=== PATIENT | male | born 1940 | race Caucasian/White ===

== ENCOUNTER → 2019-02-20 08:14 | Outpatient (CLI) | payer OTHER, SELFPAY ==
--- NOTE | 2019-02-20 08:24 | DI.RAD.S_ITS ---
PROCEDURE: XR CHEST 2V INDICATIONS: pre-op clearance, bibasilar crackles at night TECHNIQUE: 2 views of the chest were acquired. COMPARISON: None. FINDINGS: Surgical changes and devices: None. Lungs and pleura: Lungs are clear. No pleural effusions or pneumothorax. Mediastinum: Mediastinal contours are normal. Heart size is normal. Bones and chest wall: No suspicious bony abnormalities. Soft tissues appear unremarkable. IMPRESSION: Normal for age, source of current symptoms is not seen. Dictated by: Shivam Benavides M.D. on 02/20/2019 at 9:36 Approved by: Shiavm Benavides M.D. on 02/20/2019 at 9:36
[2019-02-20 08:31] LABS: RBC Urine None Seen (0-5/HPF)
[2019-02-20 08:51] LABS: Appearance Urine UA CLEAR; Bilirubin Urine UA NEGATIVE (NEGATIVE); Color Urine UA YELLOW; Glucose Urine UA NEGATIVE (Negative); Ketones Urine UA NEGATIVE (NEGATIVE); Leukocyte Esterase Urine UA NEGATIVE (NEGATIVE); Nitrite Urine UA NEGATIVE (Negative); Occult Blood Urine UA NEGATIVE (Negative); Protein Urine UA NEGATIVE (Negative); Specific Gravity Urine UA 1.025 (1.000-1.035)
[2019-02-20 09:00] LABS: Add Manual Diff / Slide Review YES; Hematocrit 32.5 % (41-53); Hemoglobin 11.3 g/dL (13.5-17.5); Mean Corpuscular HGB Conc 34.7 % (30-36); Mean Corpuscular Hemoglobin 42.6 PG (26-34); Mean Corpuscular Volume 122.7 fL (80-100); Platelet Count 527 X10^3/uL (150-400); Red Blood Cell Count 2.64 X10^6/uL (4.5-5.9); Red Cell Distribution Width 16.5 % (11.6-14.8); White Blood Cell Count 3.8 X10^3/uL (4.5-11.0)
[2019-02-20 09:01] LABS: Hemoglobin A1C% w Est Avg Glu 5.6 % (4.0-6.0)
[2019-02-20 09:13] LABS: B Type Natriuretic Peptide < 100 (<100)
[2019-02-20 09:36] LABS: Macrocytosis 2+; Neutrophils Absolute Manual 1368 /uL (3000-5900); Total Cells Counted 100
[2019-02-20 09:53] LABS: Bacteria Urine Few (2-10); Culture Indicated Urine Cult Not Indicated; Mucus Urine 2+ (Negative); WBC Urine 1-5/HPF (0-5/HPF)
[2019-02-20 09:55] LABS: Alanine Aminotransferase 37 IU/L (21-72); Albumin 4.4 g/dL (3.5-5.0); Albumin Globulin Ratio 1.5 (1.0-2.8); Alkaline Phosphatase 34 U/L (38-126); Aspartate Aminotransferase 32 IU/L (17-59); BUN Creatinine Ratio 22.5 (6-22); Bilirubin Total 0.7 mg/dL (0.2-1.3); Blood Urea Nitrogen 18 mg/dL (9-20); Calcium 9.3 mg/dL (8.4-10.2); Carbon Dioxide 31 mmol/L (22-32); Chloride 102 mmol/L (98-107); Cholesterol 142 mg/dL (140-199); Estimated Glomerular Filt Rate > 60.0 mL/min (>60); Globulin 2.9 g/dL (1.7-4.1); Glucose 127 mg/dL (80-110); HDL Cholesterol 48 mg/dL (40-60); HEMOLYSIS < 15 (0-50); LDL Cholesterol Calculated 81 mg/dL (<100); Sodium 140 mmol/L (137-145); Total Protein 7.3 g/dL (6.3-8.2); Triglycerides 66 mg/dL (35-150)
[2019-02-20 10:00] LABS: Potassium 5.5 mmol/L (3.4-5.1)
[2019-02-20 12:58] LABS: HEMOLYSIS < 15 (0-50); Potassium 4.1 mmol/L (3.4-5.1)
[2019-02-20 13:31] LABS: HEMOLYSIS < 15 (0-50); Iron 184 ug/dL (49-181)
[2019-02-20 13:42] LABS: Percent Iron Saturation 69 % (20-50); Total Iron Binding Capacity 266 ug/dL (261-462); Transferrin 196 mg/dL (206-381)
[2019-02-20 14:07] LABS: Folate 12.4 ng/mL (2.76-20.0); Vitamin B12 409 pg/mL (239-931)
== END ==
PROVIDERS: Visit Provider Nurse Practitioner Family
DX: Z01.818 Encounter for other preprocedural examination (principal); R06.02 Shortness of breath; R09.89 Other specified symptoms and signs involving the circulatory and respiratory systems; E87.5 Hyperkalemia; D53.9 Nutritional anemia, unspecified
CPT/HCPCS: 36415; 71046; 80053; 80061; 81001; 82607; 82728; 82746; 83036; 83540; 83550; 83880; 84132; 85025

== ENCOUNTER → 2019-04-24 12:07 | Outpatient (CLI) | payer OTHER, SELFPAY ==
[2019-04-26 23:07] LABS: Fecal Immunochemical Test NOT DETECTED (NOT DETECTED)
== END ==
PROVIDERS: PCP Nurse Practitioner Family; Visit Provider Nurse Practitioner Family
DX: D64.9 Anemia, unspecified (principal)
CPT/HCPCS: 82274

== ENCOUNTER → 2019-05-28 07:54 | Outpatient (CLI) | payer OTHER, SELFPAY ==
--- NOTE | 2019-05-28 07:56 | DI.US.S_ITS ---
PROCEDURE: US ABDOMEN LIMITED INDICATIONS: MACROCYTIC ANEMIA TECHNIQUE: Real-time focused scanning was performed of the abdomen, with image documentation. COMPARISON: None. FINDINGS: Liver is diffusely increased in echogenicity. No focal hepatic abnormalities identified. Normal hepatic size. Multiple gallstones present. No gallbladder wall thickening or pericholecystic fluid. Negative sonographic Suh sign. No biliary dilatation. Normal pancreas and spleen. IMPRESSION: 1. Cholelithiasis without acute cholecystitis. 2. Increased hepatic echogenicity noted possibly related to hepatic steatosis but other sources of hepatocellular disease cannot be excluded. Recommend clinical correlation. Dictated by: Rohith MALDONADO Interpreted: Tonya Lomas MD on 05/28/2019 at 9:43 Approved by: Tonya Lomas M.D. on 05/28/2019 at 14:01
== END ==
PROVIDERS: PCP Nurse Practitioner Family; Visit Provider Internal Medicine Hematology & Oncology
DX: D53.9 Nutritional anemia, unspecified (principal); K80.20 Calculus of gallbladder without cholecystitis without obstruction
CPT/HCPCS: 76705

== ENCOUNTER 2020-01-31 09:51 | Emergency (ER) | payer OTHER, SELFPAY ==
[2020-01-31 10:05] VITALS: BP 145/73; PULSE 80; RESP 18; TEMP 36.6; O2SAT 97; BMI 30.9
--- NOTE | 2020-01-31 10:21 | DI.RAD.S_ITS ---
PROCEDURE: XR CHEST 2V INDICATIONS: cough TECHNIQUE: 2 views of the chest were acquired. COMPARISON: [facility], CR, XR CHEST 2V, 02/20/2019, 8:28. FINDINGS: Surgical changes and devices: None. Lungs and pleura: Lungs are clear. No pleural effusions or pneumothorax. Mediastinum: Mediastinal contours are normal. Heart size is enlarged. Bones and chest wall: No suspicious bony abnormalities. Soft tissues appear unremarkable. IMPRESSION: No acute cardiopulmonary pathology. Dictated by: William Mensah M.D. on 01/31/2020 at 10:46 Approved by: William Mensah M.D. on 01/31/2020 at 10:46
--- NOTE | 2020-01-31 10:58 | ED.URI ---
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 He was in [place] over the weekend his friend had mild upper respiratory symptoms as well. He has got an increased cough no fevers but does find that he has orthopnea and mild exertional dyspnea. He has a history of childhood asthma but is not typically on inhalers or steroids. Mild productive cough, no chest pain no resting dyspnea, no fevers, no rashes. Related Data Home Medications Medication Instructions Recorded Confirmed Glucosamine-Chondroitin 500 mg PO DAILY 02/19/19 11/18/19 multivitamin 1 cap PO .QOD cap 02/19/19 11/18/19 omega-3 fatty acids 1,000 mg 1,000 mg PO DAILY 02/19/19 11/18/19 capsule acetaminophen [Tylenol] 325 mg DAILY PRN 04/29/19 11/18/19 Previous Rx's Medication Instructions Recorded amoxicillin-pot clavulanate 1 tab PO BID #14 tab 01/31/20 [Augmentin] methylprednisolone [Medrol ([place])] See Rx Instructions .ROUTE 01/31/20 .COMPLEX #21 each Allergies Allergy/AdvReac Type Severity Reaction Status Date / Time No Known Drug Allergies Allergy Unverified 03/13/19 14:55 Review of Systems Review of Systems Narrative: Sinus congestion and bilateral maxillary sinus tenderness with chronic nasal discharge. All systems reviewed and are unremarkable except as noted in HPI and below Patient History Family History Father History of heart disease Mother Congestive heart failure Brother Cancer Sister Congestive heart failure Social History Smoking Status: Never smoker second hand exposure: No alcohol intake: current (wine at night) substance use type: does not use Smoking Status: Never smoker alcohol intake frequency: 0-2 drinks per day Substance Use Type: does not use Exam Narrative Exam Narrative: General: Healthy appearing, in no acute distress. Able to give a complete and coherent history. Well-nourished well-developed HEENT: Moist mucous membranes, normal sclera with reactive pupils, Neck: No JVD, supple Respiratory: Lungs scattered diffuse wheezing and rhonchi in the left axilla. Full and symmetrical air movement Cardiac: Regular rate and rhythm no murmurs no bruits Abdomen: Soft nontender good bowel tones, no flank pain Skin: Warm and dry, no rashes Neurologic: Grossly neurologically intact with no obvious asymmetries or abnormalities Extremities: No trauma, well perfused Psych: Cooperative, appropriate insight and affect Initial Vital Signs Initial Vital Signs: Vital Signs Temperature 97.9 F 01/31/20 10:05 Pulse Rate 80 01/31/20 10:05 Respiratory Rate 18 01/31/20 10:05 Blood Pressure 145/73 H 01/31/20 10:05 Pulse Oximetry 97 01/31/20 10:05 Course Orders Ordered: ED Orders 01/31/20 10:21 Chest [XR chest 2V] Stat 01/31/20 11:11 EKG-12 Lead Stat 01/31/20 11:30 Complete Blood Count AUTO DIFF Stat Comprehensive Metabolic Panel Stat NT-proBNP (BNP-Adult 18+) Stat Troponin I Stat Discontinued Medications Albuterol/Ipratropium (Duoneb) 3 ml INH NOW ONE Stop: 01/31/20 11:26 Last Admin: 01/31/20 11:45 Dose: 3 ml Documented by: WESLY Ipratropium [place] (Atrovent Neb) 0.5 mg INH NOW ONE Stop: 01/31/20 11:12 Methylprednisolone (Solu-Medrol 125 Mg Vial) 125 mg IV NOW ONE Stop: 01/31/20 11:12 Vital Signs Vital signs: Vital Signs - 8 hr 01/31/20 10:05 01/31/20 11:47 Temperature 97.9 F Pulse Rate 80 60 Respiratory Rate 18 14 Blood Pressure 145/73 H Pulse Oximetry 97 MDM - URI/Sore Throat Medical Records Attestation: I reviewed the patient's medical records. Lab Data Attestation: I reviewed the patient's lab results. Result diagrams: 01/31/20 11:30 01/31/20 11:30 Labs: Lab Results 01/31/20 01/31/20 Range/Units 11:30 11:30 WBC 5.0 (4.5-11.0) X10^3/uL RBC 2.10 L (4.5-5.9) X10^6/uL Hgb 9.1 L (13.5-17.5) g/dL Hct 26.7 L (41-53) % MCV 127.3 H (80-100) fL MCH 43.2 H (26-34) PG MCHC 34.0 (30-36) % RDW 19.7 H (11.6-14.8) % Plt Count 215 (150-400) X10^3/uL Neut % (Auto) Not Reportable Lymph % (Auto) Not Reportable [place] % (Auto) Not Reportable Eos % (Auto) Not Reportable Baso % (Auto) Not Reportable Lymph # (Auto) Not Reportable [place] # (Auto) Not Reportable Baso # (Auto) Not Reportable Total Counted 100 Seg Neutrophils % 25.0 L (38-70) % Band Neutrophils % 24.0 H (3-7) % Lymphocytes % (Manual) 14.0 L (25-45) % Atypical Lymphs % 6.0 H ( - 0) % Monocytes % (Manual) 27.0 H (2-11) % Metamyelocytes % 1.0 H (-0) % Myelocytes % 3.0 H (-0) % Neutrophils # (Manual) 2450 L (4906-4113) /uL Plt Morphology Comment RBC Morphology See below Polychromasia 1+ H Poikilocytosis 2+ H Anisocytosis 2+ H Macrocytosis 2+ H Schistocytes 1+ H Sodium 139 (137-145) mmol/L Potassium 4.5 (3.4-5.1) mmol/L Chloride 104 (98-107) mmol/L Carbon Dioxide 29 (22-32) mmol/L BUN 14 (9-20) mg/dL Creatinine 0.70 (0.66-1.25) mg/dL Estimated GFR > 60.0 (>60) mL/min BUN/Creatinine Ratio 20.0 (6-22) Glucose 128 H (80-110) mg/dL Calcium 8.9 (8.4-10.2) mg/dL Total Bilirubin 0.8 (0.2-1.3) mg/dL AST 40 (17-59) IU/L ALT 40 (<50) IU/L Alkaline Phosphatase 41 (38-126) U/L Troponin I < 0.012 (0.01-0.034) ng/mL NT-Pro-B Natriuret Pep 387 (<450) pg/mL Total Protein 7.4 (6.3-8.2) g/dL Albumin 4.3 (3.5-5.0) g/dL Globulin 3.1 (1.7-4.1) g/dL Albumin/Globulin Ratio 1.4 (1.0-2.8) Imaging Data Chest x-ray: Radiologist's Impression: IMPRESSION: No acute cardiopulmonary pathology. Dictated by: William Mensah M.D. on 01/31/2020 at 10:46 ECG Data Attestation: I personally reviewed and interpreted this ECG as follows: Interpretation: Normal sinus rhythm at a rate of 71 Right bundle branch block without any ischemic changes MDM Narrative Medical decision making narrative: 79-year-old gentleman with a early myelodysplastic disorder with a clinical developing left lower lobe pneumonia without evidence of heart failure or acute coronary syndrome. Will suggest Augmentin to treat the developing pneumonia and will also suggested brief course of Solu-Medrol to help with the wheezing. In the emergency department he did receive a DuoNeb treatment with little alleviation of his wheezing I do not think that home meds will be required. Curb 65 is 1 point purely on age alone. He is safe for home discharge. He will be provided with copies of this note to review blood work as well as EKG copies. Discharge Plan Departure Patient Disposition: Home Clinical Impression: Pneumonia Qualifiers: Pneumonia type: due to unspecified organism Laterality: left Lung location: lower lobe of lung Qualified Code(s): J18.9 - Pneumonia, unspecified organism Instructions: DI for Pneumonia -- Adult Activity Restrictions/Additional Instructions: Thank you for coming in today On clinical exam you do have a developing left lower lobe pneumonia. It is not yet showing up on your chest x-ray and your lab workup is equally reassuring. I am going to suggest Augmentin and if this happens to help with the sinus congestion/fullness that is wonderful too. There is no evidence of acute coronary syndrome are heart failure to complicate your current situation. Given your current cough and 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 It was a pleasure to meet you. I wish you the best Prescriptions: New amoxicillin-pot clavulanate [Augmentin] 875-125 mg tablet 1 tab PO BID Qty: 14 RF: 0 methylprednisolone [Medrol ([place])] 4 mg tablets,dose pack See Rx Instructions .ROUTE .COMPLEX Qty: 21 RF: 0 No Action omega-3 fatty acids [Fish Oil Concentrate] 1,000 mg capsule 1,000 mg PO DAILY RF: 0 multivitamin capsule 1 cap PO .QOD RF: 0 Glucosamine-Chondroitin 500 mg PO DAILY RF: 0 acetaminophen [Tylenol] 325 mg Tablet 325 mg DAILY PRN (Reason: Pain (Scale Score 1-3)) RF: 0 Referrals: Aki Wright ARNP [Primary Care Provider] -
[2020-01-31 11:40] LABS: Hematocrit 26.7 % (41-53); Hemoglobin 9.1 g/dL (13.5-17.5); Mean Corpuscular Hemoglobin 43.2 PG (26-34); Mean Corpuscular Volume 127.3 fL (80-100); Platelet Count 215 X10^3/uL (150-400); Red Cell Distribution Width 19.7 % (11.6-14.8)
[2020-01-31 11:43] LABS: Add Manual Diff / Slide Review YES
[2020-01-31] MEDS: ALBUTEROL/IPRATROPIUM 3 ML AMPUL INH (11:45)
[2020-01-31 11:46] LABS: Alanine Aminotransferase 40 IU/L (<50); Albumin 4.3 g/dL (3.5-5.0); Albumin Globulin Ratio 1.4 (1.0-2.8); Alkaline Phosphatase 41 U/L (38-126); Aspartate Aminotransferase 40 IU/L (17-59); Bilirubin Total 0.8 mg/dL (0.2-1.3); Blood Urea Nitrogen 14 mg/dL (9-20); Calcium 8.9 mg/dL (8.4-10.2); Carbon Dioxide 29 mmol/L (22-32); Chloride 104 mmol/L (98-107); Estimated Glomerular Filt Rate > 60.0 mL/min (>60); Globulin 3.1 g/dL (1.7-4.1); Glucose 128 mg/dL (80-110); HEMOLYSIS < 15 (0-50); Potassium 4.5 mmol/L (3.4-5.1); Sodium 139 mmol/L (137-145); Total Protein 7.4 g/dL (6.3-8.2)
[2020-01-31 11:47] VITALS: PULSE 60; RESP 14
[2020-01-31 11:58] LABS: Troponin I < 0.012 ng/mL (0.01-0.034)
[2020-01-31 12:04] LABS: NT-proBNP (BNP-Adult 18+) 387 pg/mL (<450)
[2020-01-31 12:11] LABS: Neutrophils Absolute Manual 2450 /uL (3000-5900); Total Cells Counted 100
[2020-01-31 12:12] LABS: Anisocytosis 2+; Macrocytosis 2+; Poikilocytosis 2+
[2020-01-31 12:13] LABS: Polychromasia 1+; Schistocytes 1+
[2020-01-31 13:26] VITALS: BP 153/70; PULSE 75; RESP 15; O2SAT 98
== END 2020-01-31 13:27 | disposition home or self-care (01) ==
PROVIDERS: Emergency Provider Emergency Medicine; PCP Nurse Practitioner Family
DX: J18.9 Pneumonia, unspecified organism (principal); D47.3 Essential (hemorrhagic) thrombocythemia; R07.9 Chest pain, unspecified
CPT/HCPCS: 36415; 71046; 80053; 83880; 84484; 85025; 93005; 93010; 94640; 99284

== ENCOUNTER → 2020-02-18 15:11 | Outpatient (CLI) | payer OTHER, SELFPAY ==
[2020-02-18 17:13] LABS: Influenza A - CEPHEID Flu A NEGATIVE (NEGATIVE); Influenza B - CEPHEID Flu B NEGATIVE (NEGATIVE)
[2020-02-26 11:58] LABS: COVID19 Sendout Not Detected (Not Detected)
== END ==
PROVIDERS: PCP Nurse Practitioner Family; Visit Provider Physician Assistant
DX: R05 Cough (principal); R06.02 Shortness of breath
CPT/HCPCS: 87502; 87635

== ENCOUNTER → 2020-06-16 08:42 | Outpatient (CLI) | payer OTHER, SELFPAY ==
[2020-06-16 09:12] VITALS: BP 143/76; PULSE 79; RESP 16; TEMP 36.3; O2SAT 96
--- NOTE | 2020-06-16 09:23 | ONC.PN ---
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 He was initially seen last year for workup of macrocytic anemia. Bone marrow on June 03, 2019 showed a hypercellular marrow with trial lineage hematopoiesis positive for MDS/MPN related clone with mild increase in reticulin fibrosis (1/4), negative for storage iron her ring sideroblasts. Chromosome analysis showed 47 xy, +8(1)/46 xy. Flow cytometry showed an increased number of immunophenotypically abnormal monocytes, increased number of NK cells without definitive immunophenotypic abnormality, decreased expression of CD 45 with no evidence of atypical or increased blasts, no evidence of atypical B-cell or T-cell populations. Fish analysis showed trisomy 8. His anemia has gradually worsened. He was seen by Dr. Phelps last month and counseled about initiation of Aranesp. He has not had any doses yet. It was initially slow due to insurance clearance but that is now been accomplished. He comes today for a follow-up visit. He continues to have problems with dyspnea on exertion and fatigue. This has been gradually getting worse as his anemia has progressed. He is not having any new pain, bleeding, localized weakness, fever, chills, nausea, vomiting, cough or anorexia. All other systems are negative. New Past medical history 1. He denies high blood pressure, diabetes, rheumatic fever, tuberculosis, heart attacks, strokes, stomach ulcers, or any kind of cancer 2. He was diagnosed with pneumonia in January of 2020 and treated as an outpatient. 3. There is no family history of blood disorder 4. He lives with his significant other. He is an occasional drinker and a never smoker. 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 5. The previous surgeries include bilateral total hip replacements, multiple disc operations, bilateral cataract extractions and knee surgery 6. Current medications include as needed Tylenol, glucosamine, multiple vitamin and fish oil 7. He has no known drug allergies - Patient Self-Reported Symptoms SR Constitution: Fatigue/Malaise, Night Sweats SR respiratory issues: Shortness of breath SR Cardiovascular issues: Shortness of breath with activity or lying flat SR Musculoskeletal issues: Muscle weakness SR Neuro issues: Lightheaded/dizzy Home Medications and Allergies Home Medications Medication Instructions Recorded Confirmed Type Glucosamine-Chondroitin 500 mg PO DAILY 02/19/19 06/16/20 History multivitamin 1 cap PO .QOD cap 02/19/19 06/16/20 History omega-3 fatty acids 1,000 mg 1,000 mg PO DAILY 02/19/19 06/16/20 History capsule acetaminophen [Tylenol] 325 mg DAILY PRN 04/29/19 06/16/20 History Allergies Allergy/AdvReac Type Severity Reaction Status Date / Time No Known Drug Allergies Allergy Verified 02/18/20 14:57 Exam Vital signs: Vital Signs Temp Pulse Resp BP Pulse Ox 06/16/20 09:12 97.4 F L 79 16 143/76 H 96 Intake and Output 06/15/20 06/16/20 06/16/20 23:59 07:59 15:59 Other: Weight 108.9 kg Patient Weight 06/16/20 23:59 Weight 108.9 kg Narrative: He was in no acute distress. He was awake, alert and oriented x3. He was fully ambulatory. Assessment and Plan (1) Essential thrombocytosis Status: Acute Dr. Arechiga has had a progressive anemia. He symptomatic and initiation of treatment would be warranted. We discussed Aranesp injections and their mechanism of action. We reviewed the fact that they do not cure an underlying condition but are intended to increase red cell production. If they proved to be effective, we would continue them indefinitely. Possible side effects can include venous thromboembolic disease. This was seen more frequently in the past when higher hemoglobin and hematocrits were targeted with the agent. Most people tolerate it well. The main problem is that it does not work and everybody. Will initiate his Aranesp injections today. The starting dose will be 200 mcg every 2 weeks. I explained that we would adjust the dosing frequency to try to treat him with the longus possible interval assuming that the medication proves effective and well tolerated. I explained it can take 2-3 months to work. Plan to see him back in about 8 weeks to assess his response. He also asked about transfusion support. I his understanding is that the targets would be a hemoglobin of 8 and hematocrit of 25. I told him that is reasonable. However, we could also consider his symptoms. He will be 80 years old tomorrow and has dyspnea on exertion. Accordingly, if he has any decline in his red count, I think transfusion support would be appropriate and he understands this. We will check his count every 2 weeks as were giving him the Aranesp injections and will be be prepared to support him as needed. I will plan to see him back in about 8 weeks for follow-up in conjunction with an Aranesp injection.
[2020-06-16] MEDS: DARBEPOETIN 200 MCG/0.4 ML SYRINGE SUBCUT (09:41)
--- NOTE | 2020-06-16 09:47 | PC.NURSE ---
pt is traveling to [place] and desires to have next injection where he will be at. This RN spoke to [facility]. pt will let us know what medical institution he wants his injection at, call us, let us know then we will call the institution to see if they will accept outside prescription.
== END ==
PROVIDERS: PCP Nurse Practitioner Family; Referring Provider Nurse Practitioner Family; Visit Provider Internal Medicine
DX: D46.9 Myelodysplastic syndrome, unspecified (principal); D47.3 Essential (hemorrhagic) thrombocythemia; R06.09 Other forms of dyspnea; R53.83 Other fatigue
CPT/HCPCS: 96372; 99214; J0881

== ENCOUNTER → 2020-06-30 10:22 | Outpatient (CLI) | payer OTHER, SELFPAY ==
[2020-06-30 10:38] VITALS: BP 135/71; PULSE 74; RESP 16; TEMP 36.4; O2SAT 97
[2020-06-30] MEDS: DARBEPOETIN 200 MCG/0.4 ML SYRINGE SUBCUT (11:43)
[2020-06-30 12:13] VITALS: BP 122/55; PULSE 75; RESP 16; TEMP 36.6
[2020-06-30 12:27] VITALS: BP 128/69; PULSE 73; RESP 16; TEMP 37.3
[2020-06-30 14:28] VITALS: BP 127/65; PULSE 68; RESP 16; TEMP 36.9
== END ==
PROVIDERS: PCP Nurse Practitioner Family; Referring Provider Nurse Practitioner Family; Visit Provider Internal Medicine
DX: D47.3 Essential (hemorrhagic) thrombocythemia (principal); D53.9 Nutritional anemia, unspecified; R53.83 Other fatigue
CPT/HCPCS: 36415; 36430; 85025; 86850; 86900; 86901; 96372; P9016; J0881

== ENCOUNTER → 2020-07-14 15:09 | Outpatient (CLI) | payer OTHER, SELFPAY ==
[2020-07-14 11:24] VITALS: BP 142/84; PULSE 77; RESP 18; TEMP 37.2; O2SAT 98
== END ==
PROVIDERS: PCP Nurse Practitioner Family; Referring Provider Nurse Practitioner Family; Visit Provider Internal Medicine
DX: D47.3 Essential (hemorrhagic) thrombocythemia (principal)

== ENCOUNTER → 2020-07-28 09:44 | Outpatient (CLI) | payer OTHER, SELFPAY ==
[2020-07-28 09:54] VITALS: BP 157/89; PULSE 87; RESP 18; TEMP 36.9; O2SAT 97
[2020-07-28] MEDS: DARBEPOETIN 200 MCG/0.4 ML SYRINGE SUBCUT (10:17)
== END ==
PROVIDERS: PCP Nurse Practitioner Family; Referring Provider Nurse Practitioner Family; Visit Provider Internal Medicine
DX: D47.3 Essential (hemorrhagic) thrombocythemia (principal); R06.02 Shortness of breath; D53.9 Nutritional anemia, unspecified; R53.83 Other fatigue
CPT/HCPCS: 82728; 83540; 83550; 84466; 85025; 96372; J0881

== ENCOUNTER → 2020-08-11 09:17 | Outpatient (CLI) | payer OTHER, SELFPAY ==
[2020-08-11 09:40] LABS: Mean Corpuscular HGB Conc 33.4 % (30-36); Mean Corpuscular Hemoglobin 36.6 PG (26-34); Mean Corpuscular Volume 109.5 fL (80-100); Platelet Count 122 X10^3/uL (150-400); Red Blood Cell Count 1.84 X10^6/uL (4.5-5.9); Red Cell Distribution Width 30.6 % (11.6-14.8); White Blood Cell Count 5.2 X10^3/uL (4.5-11.0)
[2020-08-11 09:41] LABS: Hematocrit 20.1 % (41-53); Hemoglobin 6.7 g/dL (13.5-17.5)
[2020-08-11 09:42] LABS: Add Manual Diff / Slide Review YES
[2020-08-11 10:03] LABS: Anisocytosis 2+; Neutrophils Absolute Manual 2132 /uL (3000-5900); Poikilocytosis 1+; Total Cells Counted 100
[2020-08-11] MEDS: DARBEPOETIN 100 MCG/0.5 ML SYRINGE 500 MCG SUBCUT (11:31)
== END ==
PROVIDERS: PCP Nurse Practitioner Family; Referring Provider Internal Medicine; Visit Provider Internal Medicine
DX: D46.9 Myelodysplastic syndrome, unspecified (principal); D47.3 Essential (hemorrhagic) thrombocythemia
CPT/HCPCS: 36415; 36430; 85025; 86850; 86900; 86901; 96372; 99214; P9016; J0881

== ENCOUNTER → 2020-08-25 09:14 | Outpatient (CLI) | payer OTHER, SELFPAY ==
[2020-08-25 09:33] LABS: Add Manual Diff / Slide Review NO; Basophils Absolute Auto 100 /uL (0-100); Eosinophils Absolute Auto 0 /uL (0-450); Eosinophils Percent Auto 0.2 % (2-4); Hematocrit 26.3 % (41-53); Hemoglobin 8.9 g/dL (13.5-17.5); Lymphocytes Absolute Auto 1400 /uL (1100-4500); Lymphocytes Percent Auto 27.8 % (25-40); Mean Corpuscular Hemoglobin 33.7 PG (26-34); Mean Corpuscular Volume 99.1 fL (80-100); Monocytes Absolute Auto 1500 /uL (0-900); Monocytes Percent Auto 28.5 % (3-14); Neutrophils Absolute Auto 2200 /uL (1500-7000); Neutrophils Percent Auto 42.5 % (50-75); Platelet Count 123 X10^3/uL (150-400); Red Blood Cell Count 2.65 X10^6/uL (4.5-5.9); Red Cell Distribution Width 24.7 % (11.6-14.8); White Blood Cell Count 5.2 X10^3/uL (4.5-11.0)
[2020-08-25 09:48] LABS: Anisocytosis 2+
[2020-08-25 09:50] VITALS: BP 153/76; PULSE 84; RESP 20; TEMP 36.6; O2SAT 97
[2020-08-25] MEDS: DARBEPOETIN 300 MCG/0.6 ML SYRINGE 500 MCG SUBCUT (10:07)
--- NOTE | 2020-08-25 10:07 | PC.NURSE ---
BLOOD IN STOOL TODAY REPORTED BY PATIENT, ONE TIME OCCURENCE, NO HX OF HEMORRHOIDS, NO BEETS CONSUMED YESTERDAY, NO OTHER SIGNS OF BLEEDING. REPORT TO DR CASSIDY AND PATIENT INFORMED BY THIS NURSE THAT HE SHOULD DISCUSS IT WITH PCP AND DR CASSIDY WOULD RECOMMEND A FLEX SIGMOIDOSCOPY IF NO COLONOSCOPY IN LAST 3 MONTHS.
== END ==
PROVIDERS: PCP Nurse Practitioner Family; Referring Provider Internal Medicine; Visit Provider Internal Medicine
DX: D46.9 Myelodysplastic syndrome, unspecified (principal); D47.3 Essential (hemorrhagic) thrombocythemia
CPT/HCPCS: 36415; 85025; 96372; J0881

== ENCOUNTER → 2020-09-07 11:49 | Outpatient (CLI) | payer MEDICARE, OTHER, SELFPAY ==
[2020-09-07 12:08] LABS: Add Manual Diff / Slide Review YES; Hematocrit 26.9 % (41-53); Hemoglobin 9.3 g/dL (13.5-17.5); Mean Corpuscular HGB Conc 34.4 % (30-36); Mean Corpuscular Hemoglobin 32.4 PG (26-34); Platelet Count 77 X10^3/uL (150-400); Red Blood Cell Count 2.86 X10^6/uL (4.5-5.9); Red Cell Distribution Width 19.6 % (11.6-14.8); White Blood Cell Count 4.3 X10^3/uL (4.5-11.0)
[2020-09-07 12:26] LABS: Neutrophils Absolute Manual 1548 /uL (3000-5900); Total Cells Counted 100
[2020-09-07 12:27] LABS: Anisocytosis 2+
== END ==
PROVIDERS: PCP Nurse Practitioner Family; Referring Provider Internal Medicine; Visit Provider Internal Medicine
DX: D47.3 Essential (hemorrhagic) thrombocythemia (principal)
CPT/HCPCS: 36415; 85025

== ENCOUNTER → 2020-09-08 09:45 | Outpatient (CLI) | payer MEDICARE, OTHER, SELFPAY ==
[2020-09-08] MEDS: DARBEPOETIN 300 MCG/0.6 ML SYRINGE 500 MCG SUBCUT (09:50)
[2020-09-08] MEDS: INFLUENZA HD VACCINE 0.7 ML SYRINGE IM (10:21)
== END ==
PROVIDERS: PCP Nurse Practitioner Family; Referring Provider Nurse Practitioner Family; Visit Provider Internal Medicine
DX: D46.9 Myelodysplastic syndrome, unspecified (principal); Z23 Encounter for immunization
CPT/HCPCS: 90471; 90472; 90662; 96372; 99214; J0881

== ENCOUNTER → 2020-09-22 13:01 | Outpatient (CLI) | payer MEDICARE, OTHER, SELFPAY ==
[2020-09-22] MEDS: DARBEPOETIN 300 MCG/0.6 ML SYRINGE 500 MCG SUBCUT (14:09)
[2020-09-22 14:52] VITALS: BP 129/61; PULSE 81; RESP 16; TEMP 37
[2020-09-22 15:07] VITALS: BP 130/59; PULSE 82; RESP 16; TEMP 37.3
[2020-09-22 16:33] VITALS: BP 124/71; PULSE 85; RESP 16; TEMP 36.9
== END ==
PROVIDERS: PCP Nurse Practitioner Family; Referring Provider Nurse Practitioner Family; Visit Provider Internal Medicine
DX: D46.9 Myelodysplastic syndrome, unspecified (principal)
CPT/HCPCS: 36415; 36430; 85025; 86850; 86900; 86901; 96372; 99213; P9016; J0881

== ENCOUNTER → 2020-09-30 13:04 | Outpatient (CLI) | payer MEDICARE, OTHER, SELFPAY ==
[2020-09-30] MEDS: DARBEPOETIN 500 MCG/ML SUBCUT (13:28)
== END ==
PROVIDERS: PCP Nurse Practitioner Family; Referring Provider Internal Medicine Hematology & Oncology; Visit Provider Internal Medicine Hematology & Oncology
DX: D46.9 Myelodysplastic syndrome, unspecified (principal)
CPT/HCPCS: 36430; 96372; P9016; J0881

== ENCOUNTER → 2020-10-07 08:54 | Outpatient (CLI) | payer MEDICARE, OTHER, SELFPAY ==
[2020-10-07] MEDS: DARBEPOETIN 500 MCG/ML SUBCUT (09:54)
== END ==
PROVIDERS: PCP Nurse Practitioner Family; Referring Provider Internal Medicine; Visit Provider Internal Medicine
DX: D46.9 Myelodysplastic syndrome, unspecified (principal)
CPT/HCPCS: 96372; 99213; J0881

== ENCOUNTER → 2020-10-14 10:32 | Outpatient (CLI) | payer MEDICARE, OTHER, SELFPAY ==
[2020-10-14 10:59] VITALS: BP 126/73; PULSE 75; RESP 18; TEMP 36.9; O2SAT 98
[2020-10-14] MEDS: DARBEPOETIN 500 MCG/ML SUBCUT (12:12)
== END ==
PROVIDERS: PCP Nurse Practitioner Family; Referring Provider Nurse Practitioner Family; Visit Provider Internal Medicine
DX: D46.9 Myelodysplastic syndrome, unspecified (principal)
CPT/HCPCS: 36415; 36430; 85025; 86850; 86900; 86901; 96372; P9016; J0881

== ENCOUNTER → 2020-10-21 10:33 | Outpatient (CLI) | payer MEDICARE, OTHER, SELFPAY ==
[2020-10-21 11:03] VITALS: BP 151/73; PULSE 76; RESP 16; TEMP 36.5; O2SAT 98
[2020-10-21] MEDS: DARBEPOETIN 500 MCG/ML SUBCUT (11:20)
== END ==
PROVIDERS: PCP Nurse Practitioner Family; Referring Provider Internal Medicine; Visit Provider Internal Medicine
DX: D46.9 Myelodysplastic syndrome, unspecified (principal)
CPT/HCPCS: 36415; 85007; 85025; 96372; J0881

== ENCOUNTER → 2020-10-28 10:50 | Outpatient (CLI) | payer MEDICARE, OTHER, SELFPAY ==
[2020-10-28 11:41] VITALS: BP 121/70; PULSE 72; RESP 18; TEMP 36.7
[2020-10-28] MEDS: DARBEPOETIN 500 MCG/ML SUBCUT (11:54)
== END ==
PROVIDERS: PCP Nurse Practitioner Family; Referring Provider Nurse Practitioner Family; Visit Provider Internal Medicine
DX: D46.9 Myelodysplastic syndrome, unspecified (principal)
CPT/HCPCS: 36430; 86850; 86900; 86901; 96372; P9016; J0881

== ENCOUNTER → 2020-11-03 14:09 | Outpatient (CLI) | payer MEDICARE, OTHER, SELFPAY ==
[2020-11-03 14:44] LABS: Hematocrit 25.9 % (41-53); Hemoglobin 8.6 g/dL (13.5-17.5); Mean Corpuscular HGB Conc 33.1 % (30-36); Mean Corpuscular Volume 87.6 fL (80-100); Platelet Count 65 X10^3/uL (150-400); Red Blood Cell Count 2.96 X10^6/uL (4.5-5.9); Red Cell Distribution Width 15.8 % (11.6-14.8); White Blood Cell Count 4.9 X10^3/uL (4.5-11.0)
[2020-11-03 14:52] LABS: Add Manual Diff / Slide Review YES
[2020-11-03 15:29] LABS: Neutrophils Absolute Manual 1764 /uL (3000-5900); Total Cells Counted 100
[2020-11-03 15:30] LABS: Platelet Estimate Decreased on smear; RBC Morphology Normal Morphology
== END ==
PROVIDERS: PCP Nurse Practitioner Family; Referring Provider Internal Medicine; Visit Provider Internal Medicine
DX: D47.3 Essential (hemorrhagic) thrombocythemia (principal)
CPT/HCPCS: 36415; 85007; 85025

== ENCOUNTER → 2020-11-04 10:26 | Outpatient (CLI) | payer MEDICARE, OTHER, SELFPAY ==
[2020-11-04] MEDS: DARBEPOETIN 500 MCG/ML SUBCUT (10:00)
== END ==
PROVIDERS: PCP Nurse Practitioner Family; Referring Provider Internal Medicine; Visit Provider Internal Medicine
DX: D46.9 Myelodysplastic syndrome, unspecified (principal); D69.6 Thrombocytopenia, unspecified
CPT/HCPCS: 96372; 99214; J0881

== ENCOUNTER → 2020-11-10 08:12 | Outpatient (CLI) | payer MEDICARE, OTHER, SELFPAY ==
[2020-11-10 09:38] VITALS: BP 131/70; PULSE 78; RESP 18; TEMP 36.9
[2020-11-10] MEDS: DARBEPOETIN 500 MCG/ML SUBCUT (09:45)
== END ==
PROVIDERS: PCP Nurse Practitioner Family; Referring Provider Internal Medicine; Visit Provider Internal Medicine
DX: D46.9 Myelodysplastic syndrome, unspecified (principal); D69.6 Thrombocytopenia, unspecified
CPT/HCPCS: 36430; 96372; P9016; J0881

== ENCOUNTER → 2020-11-18 11:16 | Outpatient (CLI) | payer MEDICARE, OTHER, SELFPAY ==
[2020-11-18] MEDS: DARBEPOETIN 500 MCG/ML SUBCUT (11:55)
== END ==
PROVIDERS: PCP Nurse Practitioner Family; Referring Provider Internal Medicine; Visit Provider Internal Medicine
DX: D46.9 Myelodysplastic syndrome, unspecified (principal); D69.6 Thrombocytopenia, unspecified
CPT/HCPCS: 96372; 99213; J0881

== ENCOUNTER → 2020-11-24 08:19 | Outpatient (CLI) | payer MEDICARE, OTHER, SELFPAY ==
[2020-11-24 09:48] VITALS: BP 122/59; PULSE 67; RESP 16; TEMP 36.6
[2020-11-24 10:04] VITALS: BP 115/58; PULSE 68; RESP 16; TEMP 37.1
[2020-11-24 11:46] VITALS: BP 110/56; PULSE 66; RESP 16; TEMP 36.9
[2020-11-24 11:54] VITALS: BP 110/56; PULSE 66; RESP 16; TEMP 36.9
[2020-11-24 12:15] VITALS: BP 123/64; PULSE 64; PULSE 69; RESP 16; TEMP 36.9
[2020-11-24] MEDS: DARBEPOETIN 500 MCG/ML SUBCUT (12:44)
== END ==
PROVIDERS: PCP Nurse Practitioner Family; Referring Provider Nurse Practitioner Family; Visit Provider Internal Medicine
DX: D46.9 Myelodysplastic syndrome, unspecified (principal); D69.6 Thrombocytopenia, unspecified
CPT/HCPCS: 36430; 86850; 86900; 86901; 96372; P9016; J0881

== ENCOUNTER → 2020-12-02 13:02 | Outpatient (CLI) | payer MEDICARE, OTHER, SELFPAY ==
[2020-12-02] MEDS: DARBEPOETIN 500 MCG/ML SUBCUT (13:45)
== END ==
PROVIDERS: PCP Nurse Practitioner Family; Referring Provider Nurse Practitioner Family; Visit Provider Internal Medicine
DX: D46.9 Myelodysplastic syndrome, unspecified (principal); D69.6 Thrombocytopenia, unspecified; H65.91 Unspecified nonsuppurative otitis media, right ear
CPT/HCPCS: 96372; 99213; J0881; M1145

== ENCOUNTER 2020-12-04 10:54 | Emergency (ER) | payer MEDICARE, OTHER, SELFPAY ==
[2020-12-04] VITALS (9 sets, daily range): BP systolic 142–188; BP diastolic 68–86; PULSE 73–88; RESP 20–26; TEMP 36.6; O2SAT 96–99; BMI 66.9
[2020-12-04 11:38] LABS: Add Manual Diff / Slide Review YES; Hemoglobin 9.1 g/dL (13.5-17.5); Mean Corpuscular HGB Conc 33.8 % (30-36); Mean Corpuscular Hemoglobin 30.3 PG (26-34); Mean Corpuscular Volume 89.5 fL (80-100); Platelet Count 59 X10^3/uL (150-400); Red Blood Cell Count 3.01 X10^6/uL (4.5-5.9); Red Cell Distribution Width 16.3 % (11.6-14.8)
[2020-12-04 11:39] LABS: INR 1.2 (0.9-1.3); Prothrombin Time 13.3 SECONDS (10.1-12.7)
[2020-12-04 11:41] LABS: PTT Partial Thromboplastin Tim 18 SECONDS (26.4-36.2)
[2020-12-04 11:43] LABS: Alanine Aminotransferase 215 IU/L (<50); Albumin 4.1 g/dL (3.5-5.0); Albumin Globulin Ratio 1.2 (1.0-2.8); BUN Creatinine Ratio 22.6 (6-22); Bilirubin Total 0.7 mg/dL (0.2-1.3); Blood Urea Nitrogen 14 mg/dL (9-20); Calcium 8.5 mg/dL (8.4-10.2); Carbon Dioxide 26 mmol/L (22-32); Chloride 108 mmol/L (98-107); Estimated Glomerular Filt Rate > 60.0 mL/min (>60); Globulin 3.4 g/dL (1.7-4.1); Glucose 157 mg/dL (80-110); Lipase 53 U/L (23-300); Sodium 139 mmol/L (137-145); Total Protein 7.5 g/dL (6.3-8.2)
[2020-12-04 11:46] LABS: HEMOLYSIS 85 (0-50)
[2020-12-04 11:47] LABS: Alkaline Phosphatase 55 U/L (38-126); Aspartate Aminotransferase 106 IU/L (17-59); Potassium 4.6 mmol/L (3.4-5.1)
--- NOTE | 2020-12-04 11:52 | ED_ITS ---
HPI - General Adult General Chief complaint: Abdominal Pain Stated complaint: ABDOMINAL PAIN Time Seen by Provider: 12/04/20 11:52 Source: patient Mode of arrival: Ambulatory Limitations: no limitations History of Present Illness HPI narrative: 80-year-old gentleman with a history of myelofibrosis on Neupogen and recently started on filgrastim presents with acute onset left upper quadrant pain. It awoke him from sleep at approximately midnight describes it as sharp and stabbing worse with a deep breath not associated with fever, cough, vomiting, diarrhea, rashes or trauma. Was able to get back to sleep but it awoke him again at 4:00 a.m. and has been getting progressively worse over the course of the morning. At the time he arrives in the ER it is somewhat better he describes it as a 2/10 still a dull ache rather than a sharp stab and still involving the left upper quadrant and worse with deep breath. He remains afebrile. Related Data Home Medications Medication Instructions Recorded Confirmed multivitamin 1 cap PO .QOD cap 02/19/19 12/02/20 omega-3 fatty acids 1,000 mg 1,000 mg PO DAILY 02/19/19 12/02/20 capsule acetaminophen [Tylenol] 325 mg DAILY PRN 04/29/19 12/02/20 ascorbic acid (vitamin C) [Vitamin 1,000 mg PO DAILY 10/07/20 12/02/20 C] melatonin 5 mg PRN PRN 12/02/20 12/02/20 Previous Rx's Medication Instructions Recorded filgrastim [Neupogen] 300 mcg SUBCUT 3XW #12 ml 11/04/20 darbepoetin gene in polysorbat 500 mcg SUBCUT QWEEK #4 ml 11/10/20 [Aranesp (in polysorbate)] filgrastim-sndz [Zarxio] 300 mcg SUBCUT QMWF #12 ml 11/10/20 Allergies Allergy/AdvReac Type Severity Reaction Status Date / Time No Known Drug Allergies Allergy Verified 11/23/20 12:43 Review of Systems Review of Systems Narrative: Remainder of review of systems including constitutional, ENT, cardiovascular, respiratory, GI, , musculoskeletal, skin, neurologic and psychiatric systems reviewed and are unremarkable except as noted in HPI. 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 Able to give a complete and coherent history. Well-nourished well-developed HEENT: Moist mucous membranes, normal sclera with reactive pupils, Neck: No JVD, supple Respiratory: Lungs are clear to auscultation, no wheezing no rales no rhonchi. Full and symmetrical air movement Cardiac: Regular rate and rhythm, soft 2/6 murmurs no bruits Abdomen: Soft, mild tenderness in the left upper quadrant without rebound or guarding, good bowel tones, no flank pain Skin: Warm and dry, no rashes Neurologic: Grossly neurologically intact with no obvious asymmetries or abnorm alities Extremities: No trauma, well perfused Psych: Cooperative, appropriate insight and affect Initial Vital Signs Initial Vital Signs: Vital Signs Pulse Rate 81 12/04/20 11:21 Respiratory Rate 23 12/04/20 11:21 Pulse Oximetry 97 12/04/20 11:21 Course Orders Ordered: ED Orders 12/04/20 11:23 Complete Blood Count AUTO DIFF Stat Comprehensive Metabolic Panel Stat Lipase Stat Partial Thromboplastin Time Stat Prothrombin Time INR Stat 12/04/20 11:31 EKG-12 Lead Stat 12/04/20 12:13 CT abdomen pelvis w con Stat Vital Signs Vital signs: Vital Signs - 8 hr 12/04/20 11:21 12/04/20 11:26 12/04/20 11:30 Temperature 97.8 F Pulse Rate 81 88 80 Respiratory Rate 23 20 21 Blood Pressure 188/86 H Pulse Oximetry 97 99 96 12/04/20 12:00 12/04/20 12:30 12/04/20 12:59 Temperature Pulse Rate 80 78 76 Respiratory Rate 26 H 24 22 Blood Pressure 166/77 H Pulse Oximetry 98 96 99 12/04/20 13:00 Temperature Pulse Rate 75 Respiratory Rate 23 Blood Pressure Pulse Oximetry 98 Medical Decision Making Medical Records Medical records reviewed: Yes I reviewed the patient's medical records. Lab Data Lab results reviewed: Yes I reviewed the patient's lab results. Result diagrams: 12/04/20 11:23 12/04/20 11:23 Labs: Lab Results 12/04/20 12/04/20 12/04/20 Range/Units 11:23 11:23 11:23 WBC 16.0 H (4.5-11.0) X10^3/uL RBC 3.01 L (4.5-5.9) X10^6/uL Hgb 9.1 L (13.5-17.5) g/dL Hct 27.0 L (41-53) % MCV 89.5 (80-100) fL MCH 30.3 (26-34) PG MCHC 33.8 (30-36) % RDW 16.3 H (11.6-14.8) % Plt Count 59 L (150-400) X10^3/uL Neut % (Auto) Not Reportable Lymph % (Auto) Not Reportable [place] % (Auto) Not Reportable Eos % (Auto) Not Reportable Baso % (Auto) Not Reportable Lymph # (Auto) Not Reportable [place] # (Auto) Not Reportable Baso # (Auto) Not Reportable Total Counted 50 Seg Neutrophils % 40.0 (38-70) % Band Neutrophils % 30.0 H (3-7) % Lymphocytes % (Manual) 6.0 L (25-45) % Atypical Lymphs % 2.0 H ( - 0) % Monocytes % (Manual) 14.0 H (2-11) % Metamyelocytes % 6.0 H (-0) % Blast Cells % 2.0 H (-0) % Neutrophils # (Manual) 34483 H (5677-0600) /uL RBC Morphology Not Reportable Anisocytosis 1+ H PT 13.3 H (10.1-12.7) SECONDS INR 1.2 (0.9-1.3) APTT 18 L (26.4-36.2) SECONDS Sodium 139 (137-145) mmol/L Potassium 4.6 (3.4-5.1) mmol/L Chloride 108 H (98-107) mmol/L Carbon Dioxide 26 (22-32) mmol/L BUN 14 (9-20) mg/dL Creatinine 0.62 L (0.66-1.25) mg/dL Estimated GFR > 60.0 (>60) mL/min BUN/Creatinine Ratio 22.6 H (6-22) Glucose 157 H (80-110) mg/dL Calcium 8.5 (8.4-10.2) mg/dL Total Bilirubin 0.7 (0.2-1.3) mg/dL AST 106 H (17-59) IU/L ALT 215 H (<50) IU/L Alkaline Phosphatase 55 (38-126) U/L Total Protein 7.5 (6.3-8.2) g/dL Albumin 4.1 (3.5-5.0) g/dL Globulin 3.4 (1.7-4.1) g/dL Albumin/Globulin Ratio 1.2 (1.0-2.8) Lipase 53 (23-300) U/L Imaging Data CT scan - abdomen/pelvis: Radiologist's Impression: FINDINGS: Image quality: Excellent. ABDOMEN: Lung bases: Mild bibasilar atelectasis. No pleural effusion. Heart size is prominent. Left paraesophageal node with a short axis diameter of 1.1 cm, (2/4). Solid organs: Liver is prominent. Moderate coronary artery calcifications. Gallbladder is not significantly distended. Layering gallstones. Biliary system is non dilated. Pancreas enhances normally. The splenomegaly measuring 18.6 cm in craniocaudal dimension, (4/44). Small area of hypodensity in the superior pole of the spl een, (4/52). No extravasation of contrast. No adrenal nodules. Kidneys demonstrate normal size and enhancement, without hydronephrosis. Tiny cortical hypodensity in the left kidney which is too small to further characterize. Peritoneum and bowel: Bowel loops demonstrate normal wall thickness and caliber. No free fluid or air. Nodes and vessels: Shotty mesenteric lymph nodes with hazy mesentery, (2/50). A few prominent retroperitoneal nodes. Left common iliac 0.9 cm short axis diameter, (2/71). Aorta and inferior vena cava are normal in size. Moderate calcified plaque in the splenic artery. Splenic vein is patent. Miscellaneous: No significant ventral hernias. PELVIS: Genitourinary: Bladder wall thickness is normal. Prostatomegaly. Miscellaneous: No inguinal hernias or adenopathy. Bones: No suspicious bony lesions. Bilateral hip arthroplasties. Beam hardening artifact. No vertebral body compression fractures. Ankylosis at the anterior SI joints. IMPRESSION: 1. Splenomegaly measuring up to 18.6 cm, moderate to severe. Small hypodense fo cus at the superior pole. This could represent a small splenic infarction. 2. Shotty mesenteric, retroperitoneal lymph nodes. Hazy mid abdomen mesentery. Mildly enlarged paraesophageal lymph node. Suspect that these findings are due to the patient's underlying myeloproliferative disorder. Lymphoma or sclerosing mesenteritis could also have this appearance. 3. Gallstones. Dictated by: Mathew Walsh M.D. on 12/04/2020 at 12:06 MDM Narrative Medical decision making narrative: With his myelofibrosis, his CBC is typically abnormal. He had a slight leukocytosis 3 days ago with a white count 17.3 that is 16.0 today. His H&H are 9.1 and 27.0 which seem to be close to his baseline. Platelets remain low but steady at 59. Are unremarkable with AST an ALT slightly elevated normal bilirubin and non elevated lipase. With uncertain etiology of acute abdominal pain in an 80-year-old gentleman will moved to CT s can for more definitive diagnosis CT scan reveals splenomegaly with a question of a small splenic infarct, gallstones and adenopathy as would be expected with his myeloproliferative disorder. Given the recent addition of filgrastim and the documented splenomegaly and left upper quadrant pain, will ask him to review continuing filgrastim with his oncologist. Pain is significantly better at this time the patient declines any additional pain medication for home discharge. Discharge Plan Departure Patient Disposition: Home Clinical Impression: Splenomegaly Abdominal pain Qualifiers: Abdominal location: left upper quadrant Qualified Code(s): R10.12 - Left upper quadrant pain Adverse drug reaction Qualifiers: Encounter type: initial encounter Qualified Code(s): T50.905A - Adverse effect of unspecified drugs, medicaments and biological substances, initial encounter Instructions: DI for Abdominal Pain-Adult Activity Restrictions/Additional Instructions: Thank you for coming in today, I think it was very appropriate. Your blood work is fairly consistent with what your previous numbers have shown. I am not seeing any evidence of acute infection or dramatically worsening anemia. Your CT scan suggests splenomegaly. I do not have a comparison. The fact that filgrastim can cause splenomegaly is certainly something to continue and I would ask that you discuss the medication and whether she continue with Dr. De La Cruz. The radiologist indicated there might be of small splenic infarct in the superior pole but this is not conclusive. If you are having increasing pain or feeling a orthostatic, please return to the emergency department. It would be appropriate to re-scanned your abdomen for comparison. Please return to the ER for fevers, increasing abdominal pain, new or concerning findings. Prescriptions: No Action omega-3 fatty acids [Fish Oil Concentrate] 1,000 mg capsule 1,000 mg PO DAILY RF: 0 multivitamin capsule 1 cap PO .QOD RF: 0 acetaminophen [Tylenol] 325 mg Tablet 325 mg DAILY PRN (Reason: Pain (Scale Score 1-3)) RF: 0 Neupogen 300 mcg/0.5 mL Syringe 300 mcg SUBCUT 3XW Qty: 12 RF: 5 Zarxio 300 mcg/0.5 mL Syringe 300 mcg SUBCUT QMWF Qty: 12 RF: 5 Aranesp (in polysorbate) 500 mcg/mL Syringe 500 mcg SUBCUT QWEEK Qty: 4 RF: 5 melatonin 5 mg Capsule 5 mg PRN PRN (Reason: Insomnia) RF: 0 ascorbic acid (vitamin C) [Vitamin C] 500 mg Tablet 1,000 mg PO DAILY RF: 0 Referrals: Aki Wright ARNP [Primary Care Provider] -
[2020-12-04 12:01] LABS: Neutrophils Absolute Manual 11200 /uL (3000-5900); Total Cells Counted 50
[2020-12-04 12:02] LABS: Anisocytosis 1+
--- NOTE | 2020-12-04 12:13 | DI.CT.S_ITS ---
PROCEDURE: CT ABDOMEN PELVIS W CON INDICATIONS: acute abd pain. LUQ TECHNIQUE: After the administration of intravenous contrast, 5 mm thick sections acquired from the diaphragm to the symphysis. 5 mm coronal and sagittal reformats were acquired. For radiation dose reduction, the following was used: automated exposure control, adjustment of mA and/or kV according to patient size. COMPARISON: [facility], , US ABDOMEN LIMITED, 05/28/2019, 8:34. FINDINGS: Image quality: Excellent. ABDOMEN: Lung bases: Mild bibasilar atelectasis. No pleural effusion. Heart size is prominent. Left paraesophageal node with a short axis diameter of 1.1 cm, (2/4). Solid organs: Liver is prominent. Moderate coronary artery calcifications. Gallbladder is not significantly distended. Layering gallstones. Biliary system is non dilated. Pancreas enhances normally. The splenomegaly measuring 18.6 cm in craniocaudal dimension, (4/44). Small area of hypodensity in the superior pole of the spleen, (4/52). No extravasation of contrast. No adrenal nodules. Kidneys demonstrate normal size and enhancement, without hydronephrosis. Tiny cortical hypodensity in the left kidney which is too small to further characterize. Peritoneum and bowel: Bowel loops demonstrate normal wall thickness and caliber. No free fluid or air. Nodes and vessels: Shotty mesenteric lymph nodes with hazy mesentery, (2/50). A few prominent retroperitoneal nodes. Left common iliac 0.9 cm short axis diameter, (2/71). Aorta and inferior vena cava are normal in size. Moderate calcified plaque in the splenic artery. Splenic vein is patent. Miscellaneous: No significant ventral hernias. PELVIS: Genitourinary: Bladder wall thickness is normal. Prostatomegaly. Miscellaneous: No inguinal hernias or adenopathy. Bones: No suspicious bony lesions. Bilateral hip arthroplasties. Beam hardening artifact. No vertebral body compression fractures. Ankylosis at the anterior SI joints. IMPRESSION: 1. Splenomegaly measuring up to 18.6 cm, moderate to severe. Small hypodense focus at the superior pole. This could represent a small splenic infarction. 2. Shotty mesenteric, retroperitoneal lymph nodes. Hazy mid abdomen mesentery. Mildly enlarged paraesophageal lymph node. Suspect that these findings are due to the patient's underlying myeloproliferative disorder. Lymphoma or sclerosing mesenteritis could also have this appearance. 3. Gallstones. Dictated by: Mathew Walsh M.D. on 12/04/2020 at 12:06 Approved by: Mathew Walsh M.D. on 12/04/2020 at 12:19
== END 2020-12-04 14:00 | disposition home or self-care (01) ==
PROVIDERS: Emergency Provider Emergency Medicine; PCP Nurse Practitioner Family
DX: R10.12 Left upper quadrant pain (principal); T50.905A Adverse effect of unspecified drugs, medicaments and biological substances, initial encounter; R07.9 Chest pain, unspecified; R79.89 Other specified abnormal findings of blood chemistry; D72.829 Elevated white blood cell count, unspecified
CPT/HCPCS: 36415; 74177; 80053; 83690; 85007; 85025; 85610; 85730; 93005; 99283; 99284

== ENCOUNTER 2020-12-06 03:15 | Emergency (ER) | payer MEDICARE, OTHER, SELFPAY ==
--- NOTE | 2020-12-06 03:16 | ED.ABDPAIN ---
HPI - Abdominal Pain General Chief Complaint: Abdominal Pain Stated Complaint: Abd pain, revisit from 2 days ago Time Seen by Provider: 12/06/20 03:16 Source: patient Mode of arrival: Ambulatory Limitations: no limitations History of Present Illness HPI narrative: 80-year-old male nonsmoker with a history of myelodysplastic syndrome with weekly Aranesp 500mcg and Neupogen 300mcg 3x weekly returns with worsening LUQ pain. He was seen a few days ago and had left upper quadrant pain that was relatively well controlled. His labs were largely at his baseline, CT showed an enlarged spleen with a small area of hypodensity in superior pole of spleen which could represent small splenic infarction. Discharged home with return precautions and instructions to follow closely. Over the day he has had increasing left upper quadrant pain which is more significant, now 8/10 and persistent. It hurts worse with motion and with deep breaths. He short of breath but states he thinks this is because it hurts him to breathe so he can not take a deep breath. He is not dizzy nor weak or lightheaded. Denies any fever or chills. He denies any new medications or dietary change. He denies any exposure to COVID-19 complaint: abdominal pain Onset (ago): day(s) Pain Consistency: constant Location: LUQ Severity: severe Severity scale (1-10): 8 Quality: cramping and stabbing Radiation: none Relieving factors: rest Exacerbating factors: movement Related Data Home Medications Medication Instructions Recorded Confirmed multivitamin 1 cap PO .QOD cap 02/19/19 12/02/20 omega-3 fatty acids 1,000 mg 1,000 mg PO DAILY 02/19/19 12/02/20 capsule acetaminophen [Tylenol] 325 mg DAILY PRN 04/29/19 12/02/20 ascorbic acid (vitamin C) [Vitamin 1,000 mg PO DAILY 10/07/20 12/02/20 C] melatonin 5 mg PRN PRN 12/02/20 12/02/20 Previous Rx's Medication Instructions Recorded filgrastim [Neupogen] 300 mcg SUBCUT 3XW #12 ml 11/04/20 darbepoetin gene in polysorbat 500 mcg SUBCUT QWEEK #4 ml 11/10/20 [Aranesp (in polysorbate)] filgrastim-sndz [Zarxio] 300 mcg SUBCUT QMWF #12 ml 11/10/20 hydrocodone-acetaminophen 1 tab PO Q4-6H PRN #10 tab 12/06/20 ondansetron 4 mg PO TID-QID PRN #10 tab 12/06/20 Allergies Allergy/AdvReac Type Severity Reaction Status Date / Time No Known Drug Allergies Allergy Verified 11/23/20 12:43 Review of Systems Constitutional Constitutional: Denies chills, Reports fatigue, Denies fever(s), Denies frequent falls, Denies lethargy and Reports weakness Eyes Eyes: Denies change in vision, Denies eye discharge, Denies irritation and Denies loss of vision ENT Ears, Nose, Mouth, and Throat: Denies change in voice, Denies dizziness, Denies neck pain, Denies sore throat and Denies throat swelling Cardiovascular Cardiovascular: Denies chest pain, Denies irregular heart rhythm, Denies lightheadedness, Denies palpitations, Reports dyspnea, Reports dyspnea on exertion and Denies orthopnea Respiratory Respiratory: Denies cough, Reports dyspnea, Reports dyspnea on exertion and Denies wheezing Gastrointestinal Gastrointestinal: Reports abdominal pain, Denies change in bowel habits, Denies diarrhea, Denies nausea and Denies vomiting Musculoskeletal Musculoskeletal: Denies neck pain and Denies numbness Integumentary/Breasts Skin/Breast: Denies pruritus, Denies erythema, Denies rash and Denies wounds Neurologic Neurologic: Denies behavioral changes, Denies confusion, Denies dizziness, Denies frequent falls, Denies loss of vision, Denies numbness and Reports weakness Psychiatric Psychiatric: Denies anxiety, Denies behavioral changes, Denies confusion, Denies depression, Denies homicidal ideation and Denies suicidal ideation Endocrine Endocrine: Reports fatigue, Denies flushing and Denies palpitations Hematologic/Lymphatic Hematologic/Lymphatic: Denies easy bruising Allergic/Immunologic Allergic/Immunologic: Denies urticaria, Denies throat swelling and Denies wheezing Patient History Medical History Allergic sinusitis Cataracts, bilateral (~1995) Chicken pox (~194) Essential thrombocytosis HNP (herniated nucleus pulposus), lumbar Melanoma (~1983) Postnasal drip Serous otitis media Vision disorder Surgical History History of hip replacement, total Family History Father History of heart disease Mother Congestive heart failure Brother Cancer Sister Congestive heart failure Social History (Updated 12/04/20 @ 13:49 by Marlin Downs MD) Smoking Status: Never smoker second hand exposure: No alcohol intake: current (wine at night) substance use type: does not use 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 Well-nourished, well-developed patient, in obvious distress. SOB with rapid shallow breathing when walking in and improvement with rest. HEAD: Atraumatic. Normocephalic. EYES: Pupils equal round and reactive. Extraocular motions intact. No scleral icterus. No injection or drainage. ENT: Nose without bleeding, purulent drainage. Throat without erythema, tonsillar hypertrophy or exudate. Airway patent. NECK: Trachea midline. Non tender CARDIOVASCULAR: Regular rate and rhythm without murmurs, gallops, or rubs. RESPIRATORY: Clear to auscultation. Breath sounds equal bilaterally. No wheezes, rales, or rhonchi. GASTROINTESTINAL: Abdomen soft, LUQ swelling, tenderness to palp with mild voluntary guarding, nondistended. EXTREMITIES: No edema or joint tenderness. BACK: Nontender without deformity or crepitance. No flank tenderness. NEURO: AOx3. SKIN: No rash or erythema of visible areas Initial Vital Signs Initial Vital Signs: Vital Signs Pulse Rate 97 H 12/06/20 03:22 Pulse Oximetry 100 12/06/20 03:22 Course Orders Ordered: ED Orders 12/06/20 03:29 CT abdomen pelvis w con Stat 12/06/20 03:30 EKG-12 Lead Stat 12/06/20 03:34 Complete Blood Count AUTO DIFF Stat Comprehensive Metabolic Panel Stat Partial Thromboplastin Time Stat Prothrombin Time INR Stat Troponin & CK Cardiac Panel Stat Type and Screen Stat Ondansetron HCl (Ondansetron 4 Mg/2 Ml Inj) 4 mg IV Q4HR PRN PRN Reason: Nausea And Vomiting Last Admin: 12/06/20 03:42 Dose: 4 mg Documented by: ROSA Discontinued Medications Hydrocodone Bitart/Acetaminophen (Hydrocodone/Acet 5/325 Prepack) 1 bottle MISC SEEINSTR ONE Stop: 12/06/20 05:31 Last Admin: 12/06/20 05:43 Dose: 1 bottle Documented by: ASHLYN Hydromorphone HCl (Hydromorphone 0.5 Mg Inj) 0.5 mg IV NOW ONE Stop: 12/06/20 03:28 Last Admin: 12/06/20 03:42 Dose: 0.5 mg Documented by: ROSA Hydromorphone HCl (Hydromorphone 0.5 Mg Inj) 0.5 mg IV NOW ONE Stop: 12/06/20 05:31 Last Admin: 12/06/20 05:42 Dose: 0.5 mg Documented by: ASHLYN Ondansetron HCl (Ondansetron 4 Mg Odt Prepack) 1 bottle MISC SEEINSTR ONE Stop: 12/06/20 05:31 Last Admin: 12/06/20 05:43 Dose: 1 bottle Documented by: ASHLYN Vital Signs Vital signs: Vital Signs - 8 hr 12/06/20 03:22 12/06/20 03:26 12/06/20 03:30 Temperature 97.1 F L Pulse Rate 97 H 81 80 Respiratory Rate 17 Blood Pressure 166/74 H 151/65 H Pulse Oximetry 100 97 98 MDM - Abdominal Pain Lab Data Result diagrams: 12/06/20 03:34 12/06/20 03:34 Labs: Lab Results 12/06/20 12/06/20 12/06/20 Range/Units 03:34 03:34 03:34 WBC 9.9 (4.5-11.0) X10^3/uL RBC 3.04 L (4.5-5.9) X10^6/uL Hgb 9.2 L (13.5-17.5) g/dL Hct 27.2 L (41-53) % MCV 89.6 (80-100) fL MCH 30.1 (26-34) PG MCHC 33.6 (30-36) % RDW 15.9 H (11.6-14.8) % Plt Count 50 L (150-400) X10^3/uL Neut % (Auto) Not Reportable Lymph % (Auto) Not Reportable [place] % (Auto) Not Reportable Eos % (Auto) Not Reportable Baso % (Auto) Not Reportable Lymph # (Auto) Not Reportable [place] # (Auto) Not Reportable Baso # (Auto) Not Reportable Total Counted 100 Seg Neutrophils % 47.0 (38-70) % Band Neutrophils % 14.0 H (3-7) % Lymphocytes % (Manual) 13.0 L (25-45) % Atypical Lymphs % 5.0 H ( - 0) % Monocytes % (Manual) 19.0 H (2-11) % Metamyelocytes % 2.0 H (-0) % Neutrophils # (Manual) 6039 H (5646-4565) /uL RBC Morphology See below Anisocytosis 1+ H PT (10.1-12.7) SECONDS INR (0.9-1.3) APTT 30 D (26.4-36.2) SECONDS Sodium 138 (137-145) mmol/L Potassium 4.2 (3.4-5.1) mmol/L Chloride 104 (98-107) mmol/L Carbon Dioxide 32 (22-32) mmol/L BUN 17 (9-20) mg/dL Creatinine 0.82 (0.66-1.25) mg/dL Estimated GFR > 60.0 (>60) mL/min BUN/Creatinine Ratio 20.7 (6-22) Glucose 156 H (80-110) mg/dL Calcium 8.5 (8.4-10.2) mg/dL Total Bilirubin 0.6 (0.2-1.3) mg/dL AST 102 H (17-59) IU/L ALT 213 H (<50) IU/L Alkaline Phosphatase 65 (38-126) U/L Total Creatine Kinase (55-170) U/L CK-MB (CK-2) CK-MB (CK-2) Rel Index Troponin I (0.01-0.034) ng/mL Total Protein 7.0 (6.3-8.2) g/dL Albumin 3.8 (3.5-5.0) g/dL Globulin 3.2 (1.7-4.1) g/dL Albumin/Globulin Ratio 1.2 (1.0-2.8) Blood Type Antibody Screen 12/06/20 12/06/20 12/06/20 Range/Units 03:34 03:34 03:34 WBC (4.5-11.0) X10^3/uL RBC (4.5-5.9) X10^6/uL Hgb (13.5-17.5) g/dL Hct (41-53) % MCV (80-100) fL MCH (26-34) PG MCHC (30-36) % RDW (11.6-14.8) % Plt Count (150-400) X10^3/uL Neut % (Auto) Lymph % (Auto) [place] % (Auto) Eos % (Auto) Baso % (Auto) Lymph # (Auto) [place] # (Auto) Baso # (Auto) Total Counted Seg Neutrophils % (38-70) % Band Neutrophils % (3-7) % Lymphocytes % (Manual) (25-45) % Atypical Lymphs % ( - 0) % Monocytes % (Manual) (2-11) % Metamyelocytes % (-0) % Neutrophils # (Manual) (9439-0525) /uL RBC Morphology Anisocytosis PT 14.5 H (10.1-12.7) SECONDS INR 1.3 (0.9-1.3) APTT (26.4-36.2) SECONDS Sodium (137-145) mmol/L Potassium (3.4-5.1) mmol/L Chloride (98-107) mmol/L Carbon Dioxide (22-32) mmol/L BUN (9-20) mg/dL Creatinine (0.66-1.25) mg/dL Estimated GFR (>60) mL/min BUN/Creatinine Ratio (6-22) Glucose (80-110) mg/dL Calcium (8.4-10.2) mg/dL Total Bilirubin (0.2-1.3) mg/dL AST (17-59) IU/L ALT (<50) IU/L Alkaline Phosphatase (38-126) U/L Total Creatine Kinase 24 L (55-170) U/L CK-MB (CK-2) TNP CK-MB (CK-2) Rel Index TNP Troponin I < 0.012 (0.01-0.034) ng/mL Total Protein (6.3-8.2) g/dL Albumin (3.5-5.0) g/dL Globulin (1.7-4.1) g/dL Albumin/Globulin Ratio (1.0-2.8) Blood Type O Positive Antibody Screen Negative Imaging Data CT scan - abdomen/pelvis: Radiologist's Impression: Stable splenomegaly. No signs of splenic rupture. 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 ECG Data Attestation: I personally reviewed and interpreted this ECG as follows: Interpretation: NSR at 81 with PACs. RBBB. No ST segmental elevation, no T wave inversions MDM Narrative Medical decision making narrative: Patient returns with concerns of worsening LUQ pain. Labs and imaging are very reassuring. Vitals are stable. Significant improvement with meds noted above. Extensive discussion with patient regarding return precautions and need for follow up. He is very reliable and has had questions answered to his apparent satisfaction Discharge Plan Departure Patient Disposition: Home Clinical Impression: Spleen enlargement Abdominal pain Qualifiers: Abdominal location: left upper quadrant Qualified Code(s): R10.12 - Left upper quadrant pain Instructions: DI for Abdominal Pain-Adult Activity Restrictions/Additional Instructions: *You have been diagnosed with [ Left upper quadrant pain with stable appearing, but large spleen on CT. Your labs remain stable and overall the visit is very reassuring. ] *What to do: *Take medications as directed: Prescriptions were sent to [facility] at your request *Follow up with your primary Oncologist on Monday as planned, however, please call them on Monday to let them know of your visit to the Emergency Department today *Return to ER if you should have any new, worsening or concerning symptoms, such as [ increasing pain, fever >101F, persistent vomiting, shortness of breath or other bothersome symptoms] Prescriptions: New hydrocodone-acetaminophen 5-325 mg tablet 1 tab PO Q4-6H PRN (Reason: pain) Qty: 10 RF: 0 ondansetron 4 mg tablet,disintegrating 4 mg PO TID-QID PRN (Reason: nausea and vomiting) Qty: 10 RF: 0 No Action omega-3 fatty acids [Fish Oil Concentrate] 1,000 mg capsule 1,000 mg PO DAILY RF: 0 multivitamin capsule 1 cap PO .QOD RF: 0 acetaminophen [Tylenol] 325 mg Tablet 325 mg DAILY PRN (Reason: Pain (Scale Score 1-3)) RF: 0 Neupogen 300 mcg/0.5 mL Syringe 300 mcg SUBCUT 3XW Qty: 12 RF: 5 Zarxio 300 mcg/0.5 mL Syringe 300 mcg SUBCUT QMWF Qty: 12 RF: 5 Aranesp (in polysorbate) 500 mcg/mL Syringe 500 mcg SUBCUT QWEEK Qty: 4 RF: 5 melatonin 5 mg Capsule 5 mg PRN PRN (Reason: Insomnia) RF: 0 ascorbic acid (vitamin C) [Vitamin C] 500 mg Tablet 1,000 mg PO DAILY RF: 0 Referrals: Aki Wright ARNP [Primary Care Provider] - Abraham De La Cruz MD [Physician] -
[2020-12-06 03:22] VITALS: PULSE 97; O2SAT 100
[2020-12-06 03:26] VITALS: BP 166/74; PULSE 81; RESP 17; TEMP 36.2; O2SAT 97; BMI 29.5
--- NOTE | 2020-12-06 03:29 | DI.CT.S_ITS ---
PROCEDURE: CT ABDOMEN PELVIS W CON INDICATIONS: severe LUQ pain, much worse than a few days ago TECHNIQUE: After the administration of intravenous contrast, 5 mm thick sections acquired from the diaphragm to the symphysis. 5 mm coronal and sagittal reformats were acquired. For radiation dose reduction, the following was used: automated exposure control, adjustment of mA and/or kV according to patient size. COMPARISON: [facility], CT, CT ABDOMEN PELVIS W CON, 12/04/2020, 12:46. FINDINGS: Image quality: Excellent. ABDOMEN: Lung bases: Mild bibasilar atelectasis. No pleural effusion. Heart size is normal. Paraesophageal lymph node is outside the field of view. Solid organs: Liver is normal in size and enhancement. Gallbladder demonstrates cholelithiasis. Biliary system is non dilated. Pancreas enhances normally. Splenomegaly measuring approximately 17.8 cm, (6/47). This is not significantly changed short-term interval. Small area of hypodensity at the superior pole of the spleen is decreased in size. This is most compatible with a small splenic infarct. No perisplenic free fluid. Small right adrenal nodule measuring 1.4 cm, (3/31). This measures 41 Hounsfield units. No nodule on the left. Kidneys demonstrate normal size and enhancement, without hydronephrosis. Peritoneum and bowel: Bowel loops demonstrate normal wall thickness and caliber. Normal appendix. A few right-sided diverticuli. No ascites. No pneumoperitoneum. Nodes and vessels: Similar shotty mesenteric lymph nodes in hazy mesentery, (3/47). Aorta and inferior vena cava are normal in size. Mild calcified atherosclerotic plaque. Miscellaneous: No ventral hernias. PELVIS: Genitourinary: Bladder wall thickness is normal. Suspect trace free fluid in the pelvis, (3/90). Miscellaneous: No inguinal hernias or adenopathy. Bones: No suspicious bony lesions. Ankylosis of the bilateral anterior SI joints. Bilateral hip arthroplasties. This results in beam hardening artifact in the pelvis. No vertebral body compression fractures. IMPRESSION: 1. Stable splenomegaly. Small splenic infarct is decreased in size. 2. Similar hazy mesentery and shotty mesenteric lymph nodes. Suspect trace free fluid in the pelvis. Findings could be due to mesenteric panniculitis/sclerosing mesenteritis. 3. Cholelithiasis. 4. Small right adrenal nodule measuring 1.4 cm. This is indeterminate. -This could be further characterized with adrenal MRI or washout protocol CT. Minor discrepancy with the overnight preliminary interpretation. Right adrenal nodules is identified. Suspect trace free fluid in the pelvis. Comment: Findings were discussed with Angela Guardado at the time of dictation. Dictated by: Mathew Walsh M.D. on 12/06/2020 at 7:50 Approved by: Mathew Walsh M.D. on 12/06/2020 at 8:08
[2020-12-06 03:30] VITALS: BP 151/65; PULSE 80; O2SAT 98
[2020-12-06] MEDS: ONDANSETRON 4 MG/2 ML INJ IV (03:42)
[2020-12-06] MEDS: HYDROMORPHONE 0.5 MG INJ IV ×2 (03:42→05:42)
[2020-12-06 03:48] LABS: Add Manual Diff / Slide Review YES; Hematocrit 27.2 % (41-53); Hemoglobin 9.2 g/dL (13.5-17.5); Mean Corpuscular HGB Conc 33.6 % (30-36); Mean Corpuscular Hemoglobin 30.1 PG (26-34); Mean Corpuscular Volume 89.6 fL (80-100); Platelet Count 50 X10^3/uL (150-400); Red Blood Cell Count 3.04 X10^6/uL (4.5-5.9); Red Cell Distribution Width 15.9 % (11.6-14.8); White Blood Cell Count 9.9 X10^3/uL (4.5-11.0)
[2020-12-06 03:49] LABS: INR 1.3 (0.9-1.3); Prothrombin Time 14.5 SECONDS (10.1-12.7)
[2020-12-06 03:54] LABS: Alanine Aminotransferase 213 IU/L (<50); Albumin 3.8 g/dL (3.5-5.0); Albumin Globulin Ratio 1.2 (1.0-2.8); Alkaline Phosphatase 65 U/L (38-126); Aspartate Aminotransferase 102 IU/L (17-59); BUN Creatinine Ratio 20.7 (6-22); Bilirubin Total 0.6 mg/dL (0.2-1.3); Blood Urea Nitrogen 17 mg/dL (9-20); Calcium 8.5 mg/dL (8.4-10.2); Carbon Dioxide 32 mmol/L (22-32); Chloride 104 mmol/L (98-107); Creatine Kinase 24 U/L (55-170); Estimated Glomerular Filt Rate > 60.0 mL/min (>60); Globulin 3.2 g/dL (1.7-4.1); Glucose 156 mg/dL (80-110); HEMOLYSIS < 15 (0-50); Potassium 4.2 mmol/L (3.4-5.1); Sodium 138 mmol/L (137-145)
[2020-12-06 03:57] LABS: PTT Partial Thromboplastin Tim 30 SECONDS (26.4-36.2)
[2020-12-06 04:05] LABS: Troponin I < 0.012 ng/mL (0.01-0.034)
[2020-12-06 04:25] LABS: Neutrophils Absolute Manual 6039 /uL (3000-5900); Total Cells Counted 100
[2020-12-06 04:26] LABS: Anisocytosis 1+
[2020-12-06] MEDS: HYDROCODONE/ACET 5/325 PREPACK 1 BOTTLE MISC (05:43)
[2020-12-06] MEDS: ONDANSETRON 4 MG ODT PREPACK 1 BOTTLE MISC (05:43)
[2020-12-06 06:02] VITALS: BP 125/68; PULSE 76; RESP 18; O2SAT 96
== END 2020-12-06 06:02 | disposition home or self-care (01) ==
PROVIDERS: Emergency Provider Emergency Medicine; PCP Nurse Practitioner Family
DX: R16.1 Splenomegaly, not elsewhere classified (principal); R10.12 Left upper quadrant pain; R06.00 Dyspnea, unspecified; R53.83 Other fatigue
CPT/HCPCS: 36415; 74177; 80053; 82550; 84484; 85007; 85025; 85610; 85730; 86850; 86900; 86901; 93005; 93010; 96374; 96375; 96376; 99284; J1170; J2405; Q9967

== ENCOUNTER → 2020-12-08 09:39 | Outpatient (CLI) | payer MEDICARE, OTHER, SELFPAY ==
[2020-12-08 11:23] VITALS: BP 115/59; PULSE 73; RESP 18; TEMP 36.8
[2020-12-08] MEDS: DARBEPOETIN 500 MCG/ML SUBCUT (11:25)
== END ==
PROVIDERS: PCP Nurse Practitioner Family; Referring Provider Internal Medicine; Visit Provider Internal Medicine
DX: D46.9 Myelodysplastic syndrome, unspecified (principal); D69.6 Thrombocytopenia, unspecified; D73.5 Infarction of spleen
CPT/HCPCS: 36415; 36430; 85007; 85025; 86850; 86900; 86901; 96372; 99214; P9016; J0881; M1145

== ENCOUNTER → 2020-12-15 13:23 | Outpatient (CLI) | payer MEDICARE, OTHER, SELFPAY ==
[2020-12-15 13:34] VITALS: BP 144/65; PULSE 80; RESP 18; TEMP 36.3; O2SAT 98
[2020-12-15] MEDS: DARBEPOETIN 500 MCG/ML SUBCUT (14:22)
[2020-12-15 14:53] VITALS: BP 144/65; PULSE 80; RESP 18; TEMP 36.3
[2020-12-15 15:09] VITALS: BP 128/64; PULSE 70; RESP 18; TEMP 36.7
[2020-12-15 17:04] VITALS: BP 128/60; PULSE 71; RESP 18; TEMP 36.7
--- NOTE | 2020-12-15 17:07 | PC.NURSE ---
Blood transfusion tolerated one unit of blood w/o issue. According to pt i already feel better. Denies chest pain and SOB. Will return to clinic for 2nd unit tomorrow.
== END ==
PROVIDERS: PCP Nurse Practitioner Family; Referring Provider Nurse Practitioner Family; Visit Provider Internal Medicine
DX: D46.9 Myelodysplastic syndrome, unspecified (principal); D69.6 Thrombocytopenia, unspecified
CPT/HCPCS: 36415; 36430; 85007; 85025; 86850; 86900; 86901; 96372; P9016; J0881; M1145

== ENCOUNTER → 2020-12-17 13:38 | Outpatient (CLI) | payer MEDICARE, OTHER, SELFPAY ==
--- NOTE | 2020-12-17 13:42 | DI.MRI.S_ITS ---
PROCEDURE: MR ABDOMEN WO CON INDICATIONS: adrenal nodule, abnormal CT scan TECHNIQUE: Coronal HASTE, axial 2-D FLASH in- and [id number] with subtractions from the hepatic dome to the iliac crests. COMPARISON: [facility], CT, CT ABDOMEN PELVIS W CON, 12/06/2020, 3:50. FINDINGS: Image quality: Excellent. Adrenal glands: There is a 1.4 cm T2 hypointense nodule arises from the medial limb of the right adrenal gland, is isointense to skeletal muscle on T1 imaging and does not demonstrate signal drop on T1 out of phase imaging. The left adrenal gland is normal. Other solid organs: Liver is enlarged. Hypointense T2 signal throughout the liver on T1 and T2 imaging suggesting heavy metal deposition. There is signal increase throughout the liver on T1 out of phase imaging. The spleen is enlarged measuring 17.6 cm in length. Gallbladder contains several small stones layering in the gallbladder fundus.. Biliary system is non dilated. Pancreas is normal in morphology. Spleen is normal in size. Both kidneys are normal in size, without hydronephrosis. Nodes and vessels: There are several borderline mesenteric lymph nodes and mild edema throughout the small bowel mesentery. No retroperitoneal or mesenteric adenopathy by size criteria. Aorta and inferior vena cava are normal in size. Bowel and peritoneum: Unenhanced bowel loops are normal in caliber. No free fluid. Lung bases: No basal pleural effusions. Heart size is normal. Bones and soft tissues: No ventral hernias. Bone marrow is of normal overall signal. IMPRESSION: 1. 1.4 cm right adrenal gland nodule for which differential diagnosis includes lipid poor adenoma, less likely metastatic disease. Adrenal washout protocol CT, correlation with lab values and follow-up imaging in six months is recommended. 2. Enlarged and hypodense liver suggesting heavy metal deposition. 3. Cholelithiasis. 4. 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 5. Splenomegaly, stable compared to most recent prior study. Dictated by: Mariola King M.D. on 12/17/2020 at 16:42 Approved by: Mariola King M.D. on 12/17/2020 at 16:52
== END ==
PROVIDERS: PCP Nurse Practitioner Family; Referring Provider Nurse Practitioner Family; Visit Provider Nurse Practitioner Family
DX: E27.8 Other specified disorders of adrenal gland (principal); R16.1 Splenomegaly, not elsewhere classified; R16.0 Hepatomegaly, not elsewhere classified; K80.20 Calculus of gallbladder without cholecystitis without obstruction
CPT/HCPCS: 74181

== ENCOUNTER → 2020-12-22 10:19 | Outpatient (CLI) | payer MEDICARE, OTHER, SELFPAY ==
[2020-12-22] MEDS: DARBEPOETIN 500 MCG/ML SUBCUT (11:53)
== END ==
PROVIDERS: PCP Nurse Practitioner Family; Referring Provider Internal Medicine; Visit Provider Internal Medicine
DX: D46.9 Myelodysplastic syndrome, unspecified (principal); D69.6 Thrombocytopenia, unspecified; D73.5 Infarction of spleen; E27.9 Disorder of adrenal gland, unspecified
CPT/HCPCS: 36415; 85007; 85025; 96372; 99213; J0881

== ENCOUNTER → 2020-12-24 08:31 | Outpatient (CLI) | payer MEDICARE, OTHER, SELFPAY ==
--- NOTE | 2020-12-24 08:33 | DI.CT.S_ITS ---
PROCEDURE: CT ABDOMEN WWO PELVIS W INDICATIONS: Follow-up incidentally noted adrenal nodule TECHNIQUE: After the administration of oral contrast, 5 mm thick sections acquired from the diaphragms to the iliac crests. After the administration of intravenous contrast, 5 mm thick sections acquired from the diaphragms to the symphysis. 5 mm thick coronal and sagittal reformats were acquired. For radiation dose reduction, the following was used: automated exposure control, adjustment of mA and/or kV according to patient size. COMPARISON: [facility], CT, CT ABDOMEN PELVIS W CON, 12/04/2020, 12:46. [facility], CT, CT ABDOMEN PELVIS W CON, 12/06/2020, 3:50. FINDINGS: Image quality: Excellent. ABDOMEN: Lung bases: Mild atelectasis at the right lung base. No pleural effusion. Heart size is normal. Aortic valvular calcification. Coronary artery calcifications. Solid organs: Liver is normal in size and enhancement. Gallbladder is not distended. Multiple calcified gallstones. Biliary system is non-dilated. Pancreas enhances normally. Spleen measures 18.2 cm, (677). Hypodensity at the superior pole of the spleen is no longer seen. Both kidneys are normal in size. No hydronephrosis or nephrolithiasis. Small exophytic cyst in the left kidney which is too small to further characterize but unchanged. Right adrenal nodule measuring 1.5 x 1.4 cm, (4/46). Noncontrast phase: 18 Hounsfield units. Portal venous phase: 46 Hounsfield units. Delayed phase: 26 Hounsfield units. Absolute Washout: 71%. Absolute washout of 60% or higher is consistent with an adenoma. Relative Washout: 44%. Relative washout of 40% or higher is consistent with an adenoma. No left adrenal nodule. Bowel and peritoneum: Stomach, small and large bowel loops are normal in caliber and wall thickness. Sub hepatic appendix is mildly prominent caliber. However the lumen is gas filled and there is no periappendiceal inflammatory change seen. No free fluid or air. Nodes and vessels: Hazy mid abdomen mesentery. Shotty mediastinal lymph nodes. These findings are similar to the prior exam. Small retroperitoneal lymph nodes. Aorta and inferior vena are normal in caliber. Mild calcified atherosclerotic plaque. Miscellaneous: No ventral hernias. PELVIS: Genitourinary: Bladder wall thickness is normal. Miscellaneous: No inguinal hernias or adenopathy. Bones: No suspicious bony lesions. No vertebral body compression fractures. Bilateral hip arthroplasties. IMPRESSION: 1. Right adrenal nodule measuring 1.5 cm. Absolute contrast washout consistent with a benign adenoma. 2. Splenomegaly. No new infarct is seen. No free fluid. 3. Similar marisa mesentery and mesenteric adenopathy. 4. Cholelithiasis. Dictated by: Mathew Walsh M.D. on 12/24/2020 at 10:32 Approved by: Mathew Walsh M.D. on 12/24/2020 at 10:54
[2020-12-24 08:52] LABS: Hematocrit 29.3 % (41-53); Hemoglobin 9.8 g/dL (13.5-17.5); Mean Corpuscular HGB Conc 33.5 % (30-36); Mean Corpuscular Hemoglobin 30.7 PG (26-34); Mean Corpuscular Volume 91.5 fL (80-100); Platelet Count 81 X10^3/uL (150-400); White Blood Cell Count 4.3 X10^3/uL (4.5-11.0)
[2020-12-24 08:54] LABS: Add Manual Diff / Slide Review YES
[2020-12-24 09:06] LABS: Alanine Aminotransferase 244 IU/L (<50); Albumin Globulin Ratio 1.3 (1.0-2.8); Alkaline Phosphatase 54 U/L (38-126); Aspartate Aminotransferase 121 IU/L (17-59); BUN Creatinine Ratio 19.4 (6-22); Bilirubin Total 0.5 mg/dL (0.2-1.3); Blood Urea Nitrogen 13 mg/dL (9-20); Calcium 8.6 mg/dL (8.4-10.2); Carbon Dioxide 32 mmol/L (22-32); Chloride 103 mmol/L (98-107); Estimated Glomerular Filt Rate > 60.0 mL/min (>60); Globulin 3.1 g/dL (1.7-4.1); Glucose 155 mg/dL (80-110); HEMOLYSIS < 15 (0-50); Potassium 4.7 mmol/L (3.4-5.1); Sodium 138 mmol/L (137-145); Total Protein 7.1 g/dL (6.3-8.2)
[2020-12-24 09:21] LABS: NT-proBNP (BNP-Adult 18+) 245 pg/mL (<450)
[2020-12-24 09:22] LABS: Neutrophils Absolute Manual 2838 /uL (3000-5900); Total Cells Counted 100
[2020-12-24 09:24] LABS: Anisocytosis 1+
[2020-12-25 04:36] LABS: Ceruloplasmin 18.5 mg/dL (16.0-31.0)
[2020-12-25 17:48] LABS: Lead, Blood < 1 ug/dL (0-4); Mercury, Blood 1.8 ug/L (0.0-14.9)
== END ==
PROVIDERS: PCP Nurse Practitioner Family; Referring Provider Internal Medicine; Visit Provider Internal Medicine
DX: E27.8 Other specified disorders of adrenal gland (principal); D46.9 Myelodysplastic syndrome, unspecified; D73.5 Infarction of spleen; R06.02 Shortness of breath; R16.0 Hepatomegaly, not elsewhere classified; R59.0 Localized enlarged lymph nodes; K80.20 Calculus of gallbladder without cholecystitis without obstruction; Z96.643 Presence of artificial hip joint, bilateral
CPT/HCPCS: 36415; 74178; 80053; 82390; 83825; 83880; 85007; 85025; 85045

== ENCOUNTER → 2020-12-29 09:01 | Outpatient (CLI) | payer MEDICARE, OTHER, SELFPAY ==
[2020-12-29 09:09] VITALS: BP 154/85; PULSE 91; RESP 20; TEMP 36.8; O2SAT 99
== END ==
PROVIDERS: PCP Nurse Practitioner Family; Referring Provider Nurse Practitioner Family; Visit Provider Internal Medicine
DX: D46.9 Myelodysplastic syndrome, unspecified (principal); D69.6 Thrombocytopenia, unspecified

== ENCOUNTER → 2021-01-05 09:35 | Outpatient (CLI) | payer MEDICARE, OTHER, SELFPAY ==
[2021-01-05] MEDS: DARBEPOETIN 500 MCG/ML SUBCUT (10:18)
== END ==
PROVIDERS: PCP Nurse Practitioner Family; Referring Provider Nurse Practitioner Family; Visit Provider Internal Medicine
DX: D46.9 Myelodysplastic syndrome, unspecified (principal); D69.6 Thrombocytopenia, unspecified; D73.5 Infarction of spleen
CPT/HCPCS: 36430; 96372; 99214; P9016; J0881

== ENCOUNTER → 2021-01-12 14:44 | Outpatient (CLI) | payer MEDICARE, OTHER, SELFPAY ==
[2021-01-12 15:02] VITALS: BP 140/72; PULSE 78; RESP 16; TEMP 37.1; O2SAT 95
[2021-01-12] MEDS: DARBEPOETIN 500 MCG/ML SUBCUT (15:19)
== END ==
PROVIDERS: PCP Nurse Practitioner Family; Referring Provider Internal Medicine; Visit Provider Internal Medicine
DX: D46.9 Myelodysplastic syndrome, unspecified (principal); D69.6 Thrombocytopenia, unspecified
CPT/HCPCS: 36415; 85007; 85025; 96372; J0881

== ENCOUNTER → 2021-01-19 09:04 | Outpatient (CLI) | payer MEDICARE, OTHER, SELFPAY ==
[2021-01-19] MEDS: DARBEPOETIN 500 MCG/ML SUBCUT (10:31)
== END ==
PROVIDERS: PCP Nurse Practitioner Family; Referring Provider Internal Medicine; Visit Provider Internal Medicine
DX: D46.9 Myelodysplastic syndrome, unspecified (principal); D69.6 Thrombocytopenia, unspecified; D73.5 Infarction of spleen
CPT/HCPCS: 96372; 99214; J0881

== ENCOUNTER 2021-01-24 05:10 | Emergency (ER) | payer MEDICARE, OTHER, SELFPAY ==
[2021-01-24] VITALS (37 sets, daily range): BP systolic 108–168; BP diastolic 52–77; PULSE 72–90; RESP 14–32; TEMP 36.4–36.8; O2SAT 96–99; BMI 29.7
--- NOTE | 2021-01-24 05:41 | ED.ABDPAIN ---
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 He said he was diagnosed with parked on December 04 in the emergency department the medication was backed off however it was recently restarted in the last week he was given 3 injections as opposed to 2 injections and this evening had sudden left upper quadrant pain similar to what he experienced previously. He denies any fever or chills nausea or vomiting. He is not wanting a needing any pain medication but is concerned about another splenic infarct. MD complaint: abdominal pain Onset (ago): hour(s) Pain Consistency: constant Location: LUQ Severity: mild Quality: stabbing Radiation: none Migration to: no migration Relieving factors: nothing Exacerbating factors: nothing Related Data Home Medications Medication Instructions Recorded Confirmed multivitamin 1 cap PO .QOD cap 02/19/19 12/22/20 omega-3 fatty acids 1,000 mg 1,000 mg PO DAILY 02/19/19 12/22/20 capsule acetaminophen [Tylenol] 325 mg DAILY PRN 04/29/19 12/22/20 ascorbic acid (vitamin C) [Vitamin 1,000 mg PO DAILY 10/07/20 12/22/20 C] melatonin 5 mg PRN PRN 12/02/20 12/22/20 Previous Rx's Medication Instructions Recorded filgrastim [Neupogen] 300 mcg SUBCUT 3XW #12 ml 11/04/20 darbepoetin gene in polysorbat 500 mcg SUBCUT QWEEK #4 ml 11/10/20 [Aranesp (in polysorbate)] hydrocodone-acetaminophen 1 tab PO Q4-6H PRN #10 tab 12/06/20 ondansetron 4 mg PO TID-QID PRN #10 tab 12/06/20 filgrastim-sndz [Zarxio] 300 mcg SUBCUT QMWF #12 ml 01/19/21 Allergies Allergy/AdvReac Type Severity Reaction Status Date / Time No Known Drug Allergies Allergy Verified 11/23/20 12:43 Review of Systems <Di Rizo DO - Last Filed: 01/24/21 18:04> Review of Systems Narrative: GENERAL: Denies chills, fatigue, malaise, fever, sweats, travel HEENT: Denies sinus pain, ear pain, sore throat, difficulty swallowing, neck pain RESPIRATORY: Denies dyspnea, cough, wheezing, hemoptysis, sputum. CARDIOVASCULAR: Denies chest pain, palpitations, orthopnea, edema GASTROINTESTINAL: See HPI : Denies dysuria, frequency, incontinence, hematuria, urinary retention, flank pain. MUSCULOSKELETAL: Denies weakness, joint pain, or bony pain SKIN: No rash, no erythema, no pruritus NEUROLOGIC: Denies weakness, dizziness, headache, numbness, change in speech, confusion PSYCHIATRIC: No concerning psychosocial issues. 12 point review of systems is negative except for those stated above and HPI Patient History <Di Rizo DO - Last Filed: 01/24/21 18:04> Medical History Adrenal nodule Allergic sinusitis Cataracts, bilateral (~1995) Chicken pox (~194) Essential thrombocytosis Hepatomegaly HNP (herniated nucleus pulposus), lumbar Melanoma (~1983) Postnasal drip Serous otitis media 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 disorder Surgical History History of hip replacement, total Family History Father History of heart disease Mother Congestive heart failure Brother Cancer Sister Congestive heart failure Social History Smoking Status: Never smoker second hand exposure: No alcohol intake: current (wine at night) substance use type: does not use 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 HEENT: Head atraumatic,EOMI, pupils reactive, face symmetric, moist mucous membranes EARS: Tympanic membranes visualized, no erythema or bulging, no hemotympanum PHARYNX: No erythema, no tonsillar exudate, no cervical lymphadenopathy CARDIOVASCULAR: Regular rate and rhythm without murmurs, rubs or gallops. RESPIRATORY: Breath sounds equal bilaterally, no wheezes rales or rhonchi. ABDOMEN: Soft, mild left upper quadrant tenderness no guarding or rebound normal bowel sounds EXTREMITIES: Normal range of motion, no clubbing or edema. Neurovascularly intact NEUROLOGICAL: Alert and oriented x4.Normal gait and speech. Cranial nerves II through XII grossly intact. SKIN: Warm, dry, no laceration, no petechiae, no rashes or lesions. <Darren Little, DO - Last Filed: 01/24/21 11:47> Initial Vital Signs Initial Vital Signs: Vital Signs Temperature 97.7 F 01/24/21 05:21 Pulse Rate 90 01/24/21 05:21 Respiratory Rate 22 01/24/21 05:21 Blood Pressure 168/77 H 01/24/21 05:21 Pulse Oximetry 99 01/24/21 05:21 Course <Di Rizo, DO - Last Filed: 01/24/21 18:04> Orders Ordered: ED Orders 01/24/21 05:24 Complete Blood Count AUTO DIFF Stat Comprehensive Metabolic Panel Stat Lipase Stat Partial Thromboplastin Time Stat Prothrombin Time INR Stat 01/24/21 05:51 CT abdomen pelvis w con Stat 01/24/21 06:45 Packed Cells Stat Type and Screen Stat 01/24/21 07:09 XR chest 1V Stat Vital Signs Vital signs: Vital Signs - 8 hr 01/24/21 10:12 01/24/21 10:15 01/24/21 10:30 Temperature 98.1 F Pulse Rate 76 75 73 Respiratory Rate 14 22 21 Blood Pressure 114/58 L 117/57 L 117/56 L Pulse Oximetry 97 01/24/21 10:45 01/24/21 11:00 01/24/21 11:15 Temperature Pulse Rate 76 73 73 Respiratory Rate 22 22 22 Blood Pressure 117/66 114/64 114/55 L Pulse Oximetry 97 97 96 01/24/21 11:30 01/24/21 11:34 01/24/21 11:35 Temperature Pulse Rate 72 73 75 Respiratory Rate 20 32 H 24 Blood Pressure 121/63 124/65 128/68 Pulse Oximetry 98 98 98 <Darren Little DO - Last Filed: 01/24/21 11:47> Orders Ordered: ED Orders 01/24/21 05:24 Complete Blood Count AUTO DIFF Stat Comprehensive Metabolic Panel Stat Lipase Stat Partial Thromboplastin Time Stat Prothrombin Time INR Stat 01/24/21 05:51 CT abdomen pelvis w con Stat 01/24/21 06:45 Packed Cells Stat Type and Screen Stat 01/24/21 07:09 XR chest 1V Stat Vital Signs Vital signs: Vital Signs - 8 hr 01/24/21 10:12 01/24/21 10:15 01/24/21 10:30 Temperature 98.1 F Pulse Rate 76 75 73 Respiratory Rate 14 22 21 Blood Pressure 114/58 L 117/57 L 117/56 L Pulse Oximetry 97 01/24/21 10:45 01/24/21 11:00 01/24/21 11:15 Temperature Pulse Rate 76 73 73 Respiratory Rate 22 22 22 Blood Pressure 117/66 114/64 114/55 L Pulse Oximetry 97 97 96 01/24/21 11:30 01/24/21 11:34 01/24/21 11:35 Temperature Pulse Rate 72 73 75 Respiratory Rate 20 32 H 24 Blood Pressure 121/63 124/65 128/68 Pulse Oximetry 98 98 98 MDM - Abdominal Pain <Di Rizo DO - Last Filed: 01/24/21 18:04> Lab Data Result diagrams: 01/24/21 05:24 01/24/21 05:24 Labs: Lab Results 01/24/21 01/24/21 01/24/21 Range/Units 05:24 05:24 05:24 WBC 21.5 H (4.5-11.0) X10^3/uL RBC 2.49 L (4.5-5.9) X10^6/uL Hgb 7.8 L (13.5-17.5) g/dL Hct 23.7 L (41-53) % MCV 95.3 (80-100) fL MCH 31.5 (26-34) PG MCHC 33.1 (30-36) % RDW 14.8 (11.6-14.8) % Plt Count 55 L (150-400) X10^3/uL Neut % (Auto) Not Reportable Lymph % (Auto) Not Reportable [place] % (Auto) Not Reportable Eos % (Auto) Not Reportable Baso % (Auto) Not Reportable Lymph # (Auto) Not Reportable [place] # (Auto) Not Reportable Baso # (Auto) Not Reportable Total Counted 100 Seg Neutrophils % 35.0 L (38-70) % Band Neutrophils % 44.0 H (3-7) % Lymphocytes % (Manual) 10.0 L (25-45) % Atypical Lymphs % 3.0 H ( - 0) % Monocytes % (Manual) 8.0 (2-11) % Neutrophils # (Manual) 96973 H (8351-9695) /uL Dohle Bodies 1+ H Platelet Estimate Decreased on smear RBC Morphology See below Anisocytosis 1+ H PT 14.6 H (10.1-12.7) SECONDS INR 1.3 (0.9-1.3) APTT 29 (26.4-36.2) SECONDS Sodium 139 (137-145) mmol/L Potassium 4.2 (3.4-5.1) mmol/L Chloride 104 (98-107) mmol/L Carbon Dioxide 28 (22-32) mmol/L BUN 17 (9-20) mg/dL Creatinine 0.71 (0.66-1.25) mg/dL Estimated GFR > 60.0 (>60) mL/min BUN/Creatinine Ratio 23.9 H (6-22) Glucose 158 H (80-110) mg/dL Calcium 9.1 (8.4-10.2) mg/dL Total Bilirubin 0.5 (0.2-1.3) mg/dL AST 104 H (17-59) IU/L ALT 213 H (<50) IU/L Alkaline Phosphatase 90 (38-126) U/L Total Protein 7.1 (6.3-8.2) g/dL Albumin 4.0 (3.5-5.0) g/dL Globulin 3.1 (1.7-4.1) g/dL Albumin/Globulin Ratio 1.3 (1.0-2.8) Lipase 103 (23-300) U/L Blood Type Antibody Screen Crossmatch 01/24/21 Range/Units 06:45 WBC (4.5-11.0) X10^3/uL RBC (4.5-5.9) X10^6/uL Hgb (13.5-17.5) g/dL Hct (41-53) % MCV (80-100) fL MCH (26-34) PG MCHC (30-36) % RDW (11.6-14.8) % Plt Count (150-400) X10^3/uL Neut % (Auto) Lymph % (Auto) [place] % (Auto) Eos % (Auto) Baso % (Auto) Lymph # (Auto) [place] # (Auto) Baso # (Auto) Total Counted Seg Neutrophils % (38-70) % Band Neutrophils % (3-7) % Lymphocytes % (Manual) (25-45) % Atypical Lymphs % ( - 0) % Monocytes % (Manual) (2-11) % Neutrophils # (Manual) (4303-3562) /uL Dohle Bodies Platelet Estimate RBC Morphology Anisocytosis PT (10.1-12.7) SECONDS INR (0.9-1.3) APTT (26.4-36.2) SECONDS Sodium (137-145) mmol/L Potassium (3.4-5.1) mmol/L Chloride (98-107) mmol/L Carbon Dioxide (22-32) mmol/L BUN (9-20) mg/dL Creatinine (0.66-1.25) mg/dL Estimated GFR (>60) mL/min BUN/Creatinine Ratio (6-22) Glucose (80-110) mg/dL Calcium (8.4-10.2) mg/dL Total Bilirubin (0.2-1.3) mg/dL AST (17-59) IU/L ALT (<50) IU/L Alkaline Phosphatase (38-126) U/L Total Protein (6.3-8.2) g/dL Albumin (3.5-5.0) g/dL Globulin (1.7-4.1) g/dL Albumin/Globulin Ratio (1.0-2.8) Lipase (23-300) U/L Blood Type O Positive Antibody Screen Negative Crossmatch See Detail Point of care testing: Urine Dip Bedside Urine Glucose Negative Bedside Urine Bilirubin - Negative Bedside Urine Ketone - Negative Urine Specific [place] 1.015 Bedside Urine Occult Blood - Negative Bedside Urine pH 6.0 Bedside Urine Protein - Negative Bedside Urine Urobilinogen - Negative Bedside Urine Nitrite - Negative Bedside Urine Leukocytes - Negative Esterase <Darren Little DO - Last Filed: 01/24/21 11:47> Lab Data Attestation: I reviewed the patient's lab results. Labs: Lab Results 01/24/21 01/24/21 01/24/21 Range/Units 05:24 05:24 05:24 WBC 21.5 H (4.5-11.0) X10^3/uL RBC 2.49 L (4.5-5.9) X10^6/uL Hgb 7.8 L (13.5-17.5) g/dL Hct 23.7 L (41-53) % MCV 95.3 (80-100) fL MCH 31.5 (26-34) PG MCHC 33.1 (30-36) % RDW 14.8 (11.6-14.8) % Plt Count 55 L (150-400) X10^3/uL Neut % (Auto) Not Reportable Lymph % (Auto) Not Reportable [place] % (Auto) Not Reportable Eos % (Auto) Not Reportable Baso % (Auto) Not Reportable Lymph # (Auto) Not Reportable [place] # (Auto) Not Reportable Baso # (Auto) Not Reportable Total Counted 100 Seg Neutrophils % 35.0 L (38-70) % Band Neutrophils % 44.0 H (3-7) % Lymphocytes % (Manual) 10.0 L (25-45) % Atypical Lymphs % 3.0 H ( - 0) % Monocytes % (Manual) 8.0 (2-11) % Neutrophils # (Manual) 51921 H (7158-0152) /uL Dohle Bodies 1+ H Platelet Estimate Decreased on smear RBC Morphology See below Anisocytosis 1+ H PT 14.6 H (10.1-12.7) SECONDS INR 1.3 (0.9-1.3) APTT 29 (26.4-36.2) SECONDS Sodium 139 (137-145) mmol/L Potassium 4.2 (3.4-5.1) mmol/L Chloride 104 (98-107) mmol/L Carbon Dioxide 28 (22-32) mmol/L BUN 17 (9-20) mg/dL Creatinine 0.71 (0.66-1.25) mg/dL Estimated GFR > 60.0 (>60) mL/min BUN/Creatinine Ratio 23.9 H (6-22) Glucose 158 H (80-110) mg/dL Calcium 9.1 (8.4-10.2) mg/dL Total Bilirubin 0.5 (0.2-1.3) mg/dL AST 104 H (17-59) IU/L ALT 213 H (<50) IU/L Alkaline Phosphatase 90 (38-126) U/L Total Protein 7.1 (6.3-8.2) g/dL Albumin 4.0 (3.5-5.0) g/dL Globulin 3.1 (1.7-4.1) g/dL Albumin/Globulin Ratio 1.3 (1.0-2.8) Lipase 103 (23-300) U/L Blood Type Antibody Screen Crossmatch 01/24/21 Range/Units 06:45 WBC (4.5-11.0) X10^3/uL RBC (4.5-5.9) X10^6/uL Hgb (13.5-17.5) g/dL Hct (41-53) % MCV (80-100) fL MCH (26-34) PG MCHC (30-36) % RDW (11.6-14.8) % Plt Count (150-400) X10^3/uL Neut % (Auto) Lymph % (Auto) [place] % (Auto) Eos % (Auto) Baso % (Auto) Lymph # (Auto) [place] # (Auto) Baso # (Auto) Total Counted Seg Neutrophils % (38-70) % Band Neutrophils % (3-7) % Lymphocytes % (Manual) (25-45) % Atypical Lymphs % ( - 0) % Monocytes % (Manual) (2-11) % Neutrophils # (Manual) (6192-4426) /uL Dohle Bodies Platelet Estimate RBC Morphology Anisocytosis PT (10.1-12.7) SECONDS INR (0.9-1.3) APTT (26.4-36.2) SECONDS Sodium (137-145) mmol/L Potassium (3.4-5.1) mmol/L Chloride (98-107) mmol/L Carbon Dioxide (22-32) mmol/L BUN (9-20) mg/dL Creatinine (0.66-1.25) mg/dL Estimated GFR (>60) mL/min BUN/Creatinine Ratio (6-22) Glucose (80-110) mg/dL Calcium (8.4-10.2) mg/dL Total Bilirubin (0.2-1.3) mg/dL AST (17-59) IU/L ALT (<50) IU/L Alkaline Phosphatase (38-126) U/L Total Protein (6.3-8.2) g/dL Albumin (3.5-5.0) g/dL Globulin (1.7-4.1) g/dL Albumin/Globulin Ratio (1.0-2.8) Lipase (23-300) U/L Blood Type O Positive Antibody Screen Negative Crossmatch See Detail Point of care testing: Urine Dip Bedside Urine Glucose Negative Bedside Urine Bilirubin - Negative Bedside Urine Ketone - Negative Urine Specific [place] 1.015 Bedside Urine Occult Blood - Negative Bedside Urine pH 6.0 Bedside Urine Protein - Negative Bedside Urine Urobilinogen - Negative Bedside Urine Nitrite - Negative Bedside Urine Leukocytes - Negative Esterase Imaging Data Chest x-ray: Radiologist's Impression: [address] [id number] ReportSigned Patient: Goldy Arechiga DMR#: [id number]: [id number]:[id number]/Sex: 80 / MDate of Service: 01/24/21Loc: EDAccession Number: [id number] Procedure: XR chest 1V Ordering Provider: Darren Little D.O. PROCEDURE: XR CHEST 1V INDICATIONS: LUQ pain eval for LLL PNA TECHNIQUE: One view of the chest was acquired. COMPARISON: [facility], CT, CT ABDOMEN PELVIS W CON, 01/24/2021, 6:11. [facility], CR, XR CHEST 2V, 01/31/2020, 10:25. [facility], CR, XR CHEST 2V, 02/20/2019, 8:28. FINDINGS: Surgical changes and devices: None. Lungs and pleura: Lungs appear clear. No pleural effusions or pneumothorax. Mediastinum: Mediastinal contours appear normal. Heart size is normal. Bones and chest wall: No suspicious bony lesions. Overlying soft tissues appear unremarkable. IMPRESSION: No consolidation to suggest pneumonia identified. Dictated by: Mathew Walsh M.D. on 01/24/2021 at 7:47 Approved by: Mathew Walsh M.D. on 01/24/2021 at 7:49 [facility] Narrative Medical decision making narrative: Dr Little: Received turned over from Dr. Rizo. Reviewed patient's history and physical. Reviewed his radiologic results. Performed my own independent examination. Patient has received 2 units of packed red blood cells and he states that he feels much better afterwards. There is no signs of splenic infarct on his CT scan. He has persistent enlargement of his spleen. He also knows about the other abnormal findings to include the adrenal issues and also the enlarged lymph nodes. He has a follow-up with his providers in approximately 1 week. He does have a leukocytosis however his physical exam is not consistent with pneumonia. He does not have any apparent intra-abdominal infectious issues. He has no skin issues. No urinary issues. Feel we can hold on further workup for now. Patient states he has been told that the medications he is on could cause an elevation in his white count. He was given strict return precautions and follow-up instructions. He expressed understanding and agreement. Discharge Plan Departure Patient Disposition: Home Clinical Impression: Anemia, Splenomegaly, Leukocytosis, Abdominal pain Instructions: DI for Abdominal Pain-Adult Activity Restrictions/Additional Instructions: Your CT scan today does not show any signs of a splenic infarct. It appears that the rest of the findings on the report are not new/not worsening. You do have an elevated white blood cell count however we did not find any specific source of an infection and this very well may be the medications that you are taking. I feel we should hold on antibiotics. I recommend you take all of your medications as directed. Keep all of your scheduled medical appointments. Return to the emergency department for any new or worsening symptoms Prescriptions: No Action omega-3 fatty acids [Fish Oil Concentrate] 1,000 mg capsule 1,000 mg PO DAILY RF: 0 multivitamin capsule 1 cap PO .QOD RF: 0 acetaminophen [Tylenol] 325 mg Tablet 325 mg DAILY PRN (Reason: Pain (Scale Score 1-3)) RF: 0 Neupogen 300 mcg/0.5 mL Syringe 300 mcg SUBCUT 3XW Qty: 12 RF: 5 Aranesp (in polysorbate) 500 mcg/mL Syringe 500 mcg SUBCUT QWEEK Qty: 4 RF: 5 melatonin 5 mg Capsule 5 mg PRN PRN (Reason: Insomnia) RF: 0 Zarxio 300 mcg/0.5 mL Syringe 300 mcg SUBCUT QMWF Qty: 12 RF: 5 ascorbic acid (vitamin C) [Vitamin C] 500 mg Tablet 1,000 mg PO DAILY RF: 0 hydrocodone-acetaminophen 5-325 mg tablet 1 tab PO Q4-6H PRN (Reason: pain) Qty: 10 RF: 0 ondansetron 4 mg tablet,disintegrating 4 mg PO TID-QID PRN (Reason: nausea and vomiting) Qty: 10 RF: 0 Referrals: Aki Wright ARNP [Primary Care Provider] -
--- NOTE | 2021-01-24 05:51 | DI.CT.S_ITS ---
PROCEDURE: CT ABDOMEN PELVIS W CON INDICATIONS: LUQ pain prior splenic infarct TECHNIQUE: After the administration of intravenous contrast, 5 mm thick sections acquired from the diaphragm to the symphysis. 5 mm coronal and sagittal reformats were acquired. For radiation dose reduction, the following was used: automated exposure control, adjustment of mA and/or kV according to patient size. COMPARISON: [facility], CT, CT ABDOMEN PELVIS W CON, 12/06/2020, 3:50. FINDINGS: Image quality: Excellent. ABDOMEN: Lung bases: Mild right basilar patchy opacity is present, consistent with atelectasis versus pneumonia. Heart size is normal. Solid organs: Liver is normal in size and enhancement. Gallbladder demonstrates multiple calculi within its lumen with no evidence associated wall thickening.. Biliary system is non dilated. Pancreas enhances normally. Spleen is enlarged, measuring 16.7 cm, as before. No change 15 mm right adrenal nodule. No left adrenal nodules. Kidneys demonstrate normal size and enhancement, without hydronephrosis. Peritoneum and bowel: Bowel loops demonstrate normal wall thickness and caliber. No free fluid or air. Normal appendix. Nodes and vessels: No retroperitoneal or mesenteric adenopathy by size criteria. A multiple mildly prominent mesenteric lymph nodes with surrounding ground-glass mesenteric density is present, as before. lopez and inferior vena cava are normal in size. Miscellaneous: No ventral hernias. PELVIS: Genitourinary: Bladder wall thickness is normal. Miscellaneous: No inguinal hernias or adenopathy. Bones: No suspicious bony lesions. Bilateral hip arthroplasty. No vertebral body compression fractures. IMPRESSION: 1. Mild right basilar atelectasis versus pneumonia. 2. No change in splenomegaly. 3. Redemonstration of mesenteric ground-glass density and mildly prominent mesenteric lymph nodes, suggestive of mesenteritis/gastroenteritis in the appropriate clinical setting. 4. Cholelithiasis with no evidence of cholecystitis. 5. Normal appendix. 6. No change in right adrenal nodule. Dictated by: Jennifer Taylor M.D. on 01/24/2021 at 8:23 Approved by: Jennifer Taylor M.D. on 01/24/2021 at 8:26
[2021-01-24 06:00] LABS: Hematocrit 23.7 % (41-53); Hemoglobin 7.8 g/dL (13.5-17.5); INR 1.3 (0.9-1.3); Mean Corpuscular HGB Conc 33.1 % (30-36); Mean Corpuscular Hemoglobin 31.5 PG (26-34); Mean Corpuscular Volume 95.3 fL (80-100); Platelet Count 55 X10^3/uL (150-400); Prothrombin Time 14.6 SECONDS (10.1-12.7); Red Blood Cell Count 2.49 X10^6/uL (4.5-5.9); Red Cell Distribution Width 14.8 % (11.6-14.8); White Blood Cell Count 21.5 X10^3/uL (4.5-11.0)
[2021-01-24 06:02] LABS: Add Manual Diff / Slide Review YES; PTT Partial Thromboplastin Tim 29 SECONDS (26.4-36.2)
[2021-01-24 06:04] LABS: Alanine Aminotransferase 213 IU/L (<50); Albumin Globulin Ratio 1.3 (1.0-2.8); Alkaline Phosphatase 90 U/L (38-126); Aspartate Aminotransferase 104 IU/L (17-59); BUN Creatinine Ratio 23.9 (6-22); Bilirubin Total 0.5 mg/dL (0.2-1.3); Blood Urea Nitrogen 17 mg/dL (9-20); Calcium 9.1 mg/dL (8.4-10.2); Carbon Dioxide 28 mmol/L (22-32); Chloride 104 mmol/L (98-107); Estimated Glomerular Filt Rate > 60.0 mL/min (>60); Globulin 3.1 g/dL (1.7-4.1); Glucose 158 mg/dL (80-110); HEMOLYSIS < 15 (0-50); Lipase 103 U/L (23-300); Potassium 4.2 mmol/L (3.4-5.1); Sodium 139 mmol/L (137-145); Total Protein 7.1 g/dL (6.3-8.2)
--- NOTE | 2021-01-24 07:09 | DI.RAD.S_ITS ---
PROCEDURE: XR CHEST 1V INDICATIONS: LUQ pain eval for LLL PNA TECHNIQUE: One view of the chest was acquired. COMPARISON: [facility], CT, CT ABDOMEN PELVIS W CON, 01/24/2021, 6:11. [facility], CR, XR CHEST 2V, 01/31/2020, 10:25. [facility], CR, XR CHEST 2V, 02/20/2019, 8:28. FINDINGS: Surgical changes and devices: None. Lungs and pleura: Lungs appear clear. No pleural effusions or pneumothorax. Mediastinum: Mediastinal contours appear normal. Heart size is normal. Bones and chest wall: No suspicious bony lesions. Overlying soft tissues appear unremarkable. IMPRESSION: No consolidation to suggest pneumonia identified. Dictated by: Mathew Walsh M.D. on 01/24/2021 at 7:47 Approved by: Mathew Walsh M.D. on 01/24/2021 at 7:49
[2021-01-24 07:25] LABS: Neutrophils Absolute Manual 16985 /uL (3000-5900); Platelet Estimate Decreased on smear; Total Cells Counted 100
[2021-01-24 07:26] LABS: Anisocytosis 1+; Dohle Bodies 1+
== END 2021-01-24 12:01 | disposition home or self-care (01) ==
PROVIDERS: Emergency Medicine; Emergency Provider Emergency Medicine; PCP Nurse Practitioner Family
DX: R16.1 Splenomegaly, not elsewhere classified (principal); D72.829 Elevated white blood cell count, unspecified; R10.9 Unspecified abdominal pain; D64.9 Anemia, unspecified
CPT/HCPCS: 36415; 36430; 71045; 74177; 80053; 81003; 83690; 85007; 85025; 85610; 85730; 86850; 86900; 86901; 99284; P9016; Q9967

== ENCOUNTER → 2021-01-25 09:13 | Outpatient (CLI) | payer MEDICARE, OTHER, SELFPAY ==
[2021-01-25 10:22] VITALS: BP 123/64; PULSE 73; RESP 16; TEMP 37.2; O2SAT 98
[2021-01-25] MEDS: DARBEPOETIN 500 MCG/ML SUBCUT (10:23)
== END ==
PROVIDERS: PCP Nurse Practitioner Family; Referring Provider Internal Medicine; Visit Provider Internal Medicine
DX: D46.9 Myelodysplastic syndrome, unspecified (principal); D69.6 Thrombocytopenia, unspecified
CPT/HCPCS: 96372; J0881

== ENCOUNTER → 2021-02-02 08:44 | Outpatient (CLI) | payer MEDICARE, OTHER, SELFPAY ==
[2021-02-02 10:21] VITALS: BP 148/70; PULSE 81; RESP 18; TEMP 36.2; O2SAT 98
[2021-02-02] MEDS: DARBEPOETIN 500 MCG/ML SUBCUT (10:25)
--- NOTE | 2021-02-02 10:31 | ONC.MSW ---
Description: Check-in Activity: Pt indicated a (5) on his distress screening today, expressing depression, worry/fear, and fear of dying. In meeting with him, he expressed feeling hopeless and frustrated about his disease progression, and that the fear of dying is forefront on his mind. MEDICAL PHOTOGRAPHER encouraged his sharing of his treatment, his support system, and his hope that he will be eligible for a transplant at [facility]. MEDICAL PHOTOGRAPHER pointed out that this is a very hopeful and encouraging goal, and shared with him some of the transplant process that we are family with. He shared that he has a home in [place] as well as here, and that the requirement for him to live close to [facility] would not be an issue for he and his /cg. MEDICAL PHOTOGRAPHER provided services card and encouraged him to call anytime that he would like additional support or counseling. He expressed understanding.
== END ==
PROVIDERS: PCP Nurse Practitioner Family; Referring Provider Internal Medicine; Visit Provider Internal Medicine
DX: D46.9 Myelodysplastic syndrome, unspecified (principal); D69.6 Thrombocytopenia, unspecified; E83.111 Hemochromatosis due to repeated red blood cell transfusions; D73.5 Infarction of spleen
CPT/HCPCS: 36430; 96372; 99215; P9016; J0881

== ENCOUNTER → 2021-02-05 08:50 | Outpatient (CLI) | payer MEDICARE, OTHER, SELFPAY ==
[2021-02-05] MEDS: COVID-19 VACC, Ad26(JANSSEN)/PF 0.5 ML IM (09:00)
== END ==
PROVIDERS: PCP Nurse Practitioner Family; Visit Provider Internal Medicine
DX: Z23 Encounter for immunization (principal)
CPT/HCPCS: 0031A; 91303

== ENCOUNTER → 2021-02-09 08:26 | Outpatient (CLI) | payer MEDICARE, OTHER, SELFPAY ==
[2021-02-09 09:13] VITALS: BP 150/69; PULSE 88; RESP 16; TEMP 36.1; O2SAT 98
[2021-02-09] MEDS: DARBEPOETIN 500 MCG/ML SUBCUT (09:15)
== END ==
PROVIDERS: PCP Nurse Practitioner Family; Referring Provider Internal Medicine; Visit Provider Internal Medicine
DX: D46.9 Myelodysplastic syndrome, unspecified (principal); D69.6 Thrombocytopenia, unspecified; D73.5 Infarction of spleen
CPT/HCPCS: 96372; 99213; J0881

== ENCOUNTER → 2021-02-15 09:52 | Outpatient (CLI) | payer MEDICARE, OTHER, SELFPAY ==
[2021-02-15 10:05] VITALS: BP 124/84; PULSE 83; RESP 20; TEMP 36.6; O2SAT 99
[2021-02-15] MEDS: DARBEPOETIN 500 MCG/ML SUBCUT (10:12)
== END ==
PROVIDERS: PCP Nurse Practitioner Family; Referring Provider Nurse Practitioner Family; Visit Provider Internal Medicine
DX: D46.9 Myelodysplastic syndrome, unspecified (principal); D69.6 Thrombocytopenia, unspecified
CPT/HCPCS: 36415; 85007; 85025; 96372; J0881

== ENCOUNTER → 2021-03-02 10:00 | Outpatient (CLI) | payer MEDICARE, OTHER, SELFPAY ==
[2021-03-02 10:09] VITALS: BP 147/78; PULSE 84; RESP 18; TEMP 36.6; O2SAT 99
[2021-03-02] MEDS: DARBEPOETIN 500 MCG/ML SUBCUT (10:26)
[2021-03-11 08:44] LABS: Size 4x3
[2021-03-11 08:47] LABS: Uric Acid 100
== END ==
PROVIDERS: PCP Nurse Practitioner Family; Referring Provider Internal Medicine; Visit Provider Internal Medicine
DX: D46.9 Myelodysplastic syndrome, unspecified (principal)
CPT/HCPCS: 82365; 96372; J0881

== ENCOUNTER → 2021-03-09 10:07 | Outpatient (CLI) | payer MEDICARE, OTHER, SELFPAY ==
[2021-03-09] MEDS: DARBEPOETIN 500 MCG/ML SUBCUT (11:25)
== END ==
PROVIDERS: PCP Nurse Practitioner Family; Referring Provider Nurse Practitioner Family; Visit Provider Internal Medicine
DX: D46.9 Myelodysplastic syndrome, unspecified (principal); D69.6 Thrombocytopenia, unspecified; D73.5 Infarction of spleen
CPT/HCPCS: 36415; 85007; 85025; 96372; 99214; J0881

== ENCOUNTER → 2021-03-17 12:34 | Outpatient (CLI) | payer MEDICARE, OTHER, SELFPAY ==
[2021-03-17] MEDS: DARBEPOETIN 500 MCG/ML SUBCUT (12:40)
== END ==
PROVIDERS: PCP Nurse Practitioner Family; Referring Provider Nurse Practitioner Family; Visit Provider Internal Medicine
DX: D46.9 Myelodysplastic syndrome, unspecified (principal); D69.6 Thrombocytopenia, unspecified
CPT/HCPCS: 36430; 96372; P9016; J0881

== ENCOUNTER → 2021-03-23 09:38 | Outpatient (CLI) | payer MEDICARE, OTHER, SELFPAY ==
[2021-03-23 09:55] VITALS: BP 140/70; PULSE 75; RESP 18
[2021-03-23] MEDS: DARBEPOETIN 500 MCG/ML SUBCUT (10:42)
== END ==
PROVIDERS: PCP Nurse Practitioner Family; Referring Provider Internal Medicine; Visit Provider Internal Medicine
DX: D46.9 Myelodysplastic syndrome, unspecified (principal); D69.6 Thrombocytopenia, unspecified
CPT/HCPCS: 96372; J0881

== ENCOUNTER 2021-03-27 02:11 | Emergency (ER) | payer MEDICARE, OTHER, SELFPAY ==
[2021-03-27] VITALS (12 sets, daily range): BP systolic 114–152; BP diastolic 56–68; PULSE 78–104; RESP 16–24; TEMP 37.1–37.7; O2SAT 94–97; BMI 29.8
--- NOTE | 2021-03-27 02:40 | PC.NURSE ---
Pt also reports diarrhea starting about 4 days ago. Believes diarrhea may be med related.
[2021-03-27 02:45] LABS: Hemoglobin 8.3 g/dL (13.5-17.5); Mean Corpuscular HGB Conc 34.2 % (30-36); Mean Corpuscular Hemoglobin 34.2 PG (26-34); Mean Corpuscular Volume 99.8 fL (80-100); Red Blood Cell Count 2.43 X10^6/uL (4.5-5.9); Red Cell Distribution Width 29.5 % (11.6-14.8); White Blood Cell Count 8.9 X10^3/uL (4.5-11.0)
[2021-03-27 02:47] LABS: Hematocrit 24.3 % (41-53); Platelet Count 37 X10^3/uL (150-400)
[2021-03-27 02:48] LABS: Add Manual Diff / Slide Review YES; Alanine Aminotransferase 170 IU/L (<50); Albumin 3.6 g/dL (3.5-5.0); Albumin Globulin Ratio 1.1 (1.0-2.8); Alkaline Phosphatase 67 U/L (38-126); Aspartate Aminotransferase 128 IU/L (17-59); BUN Creatinine Ratio 20.8 (6-22); Bilirubin Total 0.5 mg/dL (0.2-1.3); Blood Urea Nitrogen 16 mg/dL (9-20); Calcium 8.8 mg/dL (8.4-10.2); Carbon Dioxide 27 mmol/L (22-32); Chloride 102 mmol/L (98-107); Estimated Glomerular Filt Rate > 60.0 mL/min (>60); Globulin 3.3 g/dL (1.7-4.1); Glucose 153 mg/dL (80-110); HEMOLYSIS < 15 (0-50); Potassium 4.2 mmol/L (3.4-5.1); Sodium 136 mmol/L (137-145); Total Protein 6.9 g/dL (6.3-8.2)
[2021-03-27 03:11] LABS: Neutrophils Absolute Manual 4806 /uL (3000-5900); Total Cells Counted 100
[2021-03-27 03:12] LABS: Platelet Estimate Decreased on smear
[2021-03-27 03:13] LABS: Anisocytosis 3+
--- NOTE | 2021-03-27 03:16 | ED.RECABL ---
HPI - Recheck/Abnormal Lab/Rx General Chief Complaint: Recheck/Abnormal Lab/Rx Stated Complaint: Cancer pt, diarrhea, SOB, anemic Time Seen by Provider: 03/27/21 02:22 Source: patient Mode of arrival: Wheelchair History of Present Illness HPI narrative: 80-year-old male with history of myelofibrosis who presents with increasing shortness of breath and some slight dizziness. He gets frequent transfusions about every 1-2 weeks he started taking deferasiroxh. He started this about 1 week ago he started having some his brown soft diarrhea about 4 days ago. He denies any nausea vomiting or abdominal pain. He has had a splenic infarct in the past and intermittently has left upper quadrant pain but he is denying any pain now. He says the shortness of breath will come this evening he feels as though he may need a transfusion. complaint: abnormal lab Related Data Home Medications Medication Instructions Recorded Confirmed acetaminophen [Tylenol] 325 mg DAILY PRN 04/29/19 03/17/21 melatonin 5 mg PRN PRN 12/02/20 03/17/21 ascorbic acid (vitamin C) 500 mg 1,000 mg PO Q3D tab 03/17/21 03/17/21 tablet filgrastim 300 mcg/0.5 mL 300 mcg SUBCUT QWEEK ml 03/17/21 03/17/21 injection syringe garlic 300 mg PO Q3D tab 03/17/21 03/17/21 multivitamin 1 cap PO Q3D cap 03/17/21 03/17/21 omega-3 fatty acids 1,000 mg 1,000 mg PO Q3D cap 03/17/21 03/17/21 capsule Previous Rx's Medication Instructions Recorded darbepoetin gene in polysorbat 500 mcg SUBCUT QWEEK #4 ml 11/10/20 [Aranesp (in polysorbate)] deferasirox [Exjade] 2,000 mg PO DAILY #120 ea 03/17/21 epoetin gene [Procrit] 30,000 unit SUBCUT 3XW 30 Days 03/24/21 #19.5 ml Allergies Allergy/AdvReac Type Severity Reaction Status Date / Time No Known Drug Allergies Allergy Verified 03/17/21 09:08 Review of Systems Review of Systems ROS Unobtainable: All systems reviewed & are unremarkable except as noted in HPI and below Constitutional Constitutional: Denies chills, Denies fever(s), Denies lethargy and Denies weakness Eyes Eyes: Denies change in vision, Denies eye discharge, Denies irritation and Denies loss of vision ENT Ears, Nose, Mouth, and Throat: Denies abnormal hearing Cardiovascular Cardiovascular: Denies chest pain, Denies irregular heart rhythm, Reports lightheadedness, Denies palpitations, Reports dyspnea on exertion and Denies orthopnea Respiratory Respiratory: Reports dyspnea on exertion Gastrointestinal Gastrointestinal: Denies abdominal pain, Denies change in bowel habits, Denies diarrhea, Denies nausea and Denies vomiting Neurologic Neurologic: Denies abnormal hearing, Denies loss of vision and Denies weakness Endocrine Endocrine: Denies palpitations Patient History Medical History Adrenal nodule Allergic sinusitis Cataracts, bilateral (~1995) Chicken pox (~1943) Essential thrombocytosis Hepatomegaly HNP (herniated nucleus pulposus), lumbar Melanoma (~1983) Postnasal drip Serous otitis media 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 disorder Surgical History History of hip replacement, total Family History Father History of heart disease Mother Congestive heart failure Brother Cancer Sister Congestive heart failure Social History Smoking Status: Never smoker second hand exposure: No alcohol intake: current (wine at night) substance use type: does not use 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 RESPIRATORY: Breath sounds equal bilaterally, no wheezes rales or rhonchi. ABDOMEN: Soft, nontender. Normoactive bowel sounds all 4 quadrants. No guarding or rebound. EXTREMITIES: Normal range of motion, no clubbing or edema. Neurovascularly intact NEUROLOGICAL: Alert and oriented x4.Normal gait and speech. Cranial nerves II through XII grossly intact. SKIN: Warm, dry, no laceration, no petechiae, no rashes or lesions. Course Orders Ordered: ED Orders 03/27/21 02:25 Complete Blood Count AUTO DIFF Stat Comprehensive Metabolic Panel Stat Packed Cells Stat Type and Screen Stat Vital Signs Vital signs: Vital Signs - 8 hr 03/27/21 02:15 03/27/21 02:43 03/27/21 03:00 Temperature 99.3 F 98.7 F Pulse Rate 104 H 85 85 Respiratory Rate 24 Blood Pressure 152/68 H 125/58 L Pulse Oximetry 97 95 95 03/27/21 03:24 03/27/21 03:28 03/27/21 03:31 Temperature 98.7 F 98.7 F 98.7 F Pulse Rate 86 86 82 Respiratory Rate 16 18 18 Blood Pressure 125/58 L 125/58 L 129/60 Pulse Oximetry 95 95 03/27/21 03:45 03/27/21 03:46 03/27/21 04:00 Temperature 100 F H Pulse Rate 90 90 86 Respiratory Rate 18 Blood Pressure 118/58 L 118/58 L 125/56 L Pulse Oximetry 96 96 03/27/21 04:15 03/27/21 04:23 03/27/21 05:20 Temperature 99.9 F H 99.9 F H Pulse Rate 81 78 Respiratory Rate 23 Blood Pressure 124/63 114/59 L Pulse Oximetry 94 [facility] - Recheck/Abnormal Lab/Rx Lab Data Result diagrams: 03/27/21 02:25 03/27/21 02:25 Labs: Lab Results 03/27/21 03/27/21 03/27/21 Range/Units 02:25 02:25 02:25 WBC 8.9 (4.5-11.0) X10^3/uL RBC 2.43 L (4.5-5.9) X10^6/uL Hgb 8.3 L (13.5-17.5) g/dL Hct 24.3 L (41-53) % MCV 99.8 (80-100) fL MCH 34.2 H (26-34) PG MCHC 34.2 (30-36) % RDW 29.5 H (11.6-14.8) % Plt Count 37 L (150-400) X10^3/uL Neut % (Auto) Not Reportable Lymph % (Auto) Not Reportable Coles % (Auto) Not Reportable Eos % (Auto) Not Reportable Baso % (Auto) Not Reportable Lymph # (Auto) Not Reportable Coles # (Auto) Not Reportable Baso # (Auto) Not Reportable Total Counted 100 Seg Neutrophils % 36.0 L (38-70) % Band Neutrophils % 18.0 H (3-7) % Lymphocytes % (Manual) 16.0 L (25-45) % Atypical Lymphs % 2.0 H ( - 0) % Monocytes % (Manual) 25.0 H (2-11) % Metamyelocytes % 2.0 H (-0) % Myelocytes % 1.0 H (-0) % Neutrophils # (Manual) 4806 ([id number]) /uL Platelet Estimate Decreased on smear RBC Morphology See below Anisocytosis 3+ H Sodium 136 L (137-145) mmol/L Potassium 4.2 (3.4-5.1) mmol/L Chloride 102 (98-107) mmol/L Carbon Dioxide 27 (22-32) mmol/L BUN 16 (9-20) mg/dL Creatinine 0.77 (0.66-1.25) mg/dL Estimated GFR > 60.0 (>60) mL/min BUN/Creatinine Ratio 20.8 (6-22) Glucose 153 H (80-110) mg/dL Calcium 8.8 (8.4-10.2) mg/dL Total Bilirubin 0.5 (0.2-1.3) mg/dL AST 128 H (17-59) IU/L ALT 170 H (<50) IU/L Alkaline Phosphatase 67 (38-126) U/L Total Protein 6.9 (6.3-8.2) g/dL Albumin 3.6 (3.5-5.0) g/dL Globulin 3.3 (1.7-4.1) g/dL Albumin/Globulin Ratio 1.1 (1.0-2.8) Blood Type O Positive Antibody Screen Negative Crossmatch See Detail MDM Narrative Medical decision making narrative: Patient has symptomatic anemia with hemoglobin previously now 8.3/24.3. He is given 1 unit packed red blood cells. Also found to be thrombocytopenic Saul recommend holding off on his deferasirox. Patient is overall feeling better. He will follow-up with Oncology. Discharge Plan Departure Patient Disposition: Home Clinical Impression: Anemia, Thrombocytopenia Instructions: Anemia Activity Restrictions/Additional Instructions: *You have been diagnosed with anemia and thrombocytopenia *What to do: You have a low platelets of please stop taking your deferasirox--discuss this with your oncologist as well. *Continue to take medications as directed *Follow up with your primary care provider in 2-3 days *Return to ER if you should have increasing shortness of breath weakness or any new, worsening or concerning symptoms Prescriptions: No Action multivitamin Capsule 1 cap PO Q3D RF: 0 omega-3 fatty acids [Fish Oil Concentrate] 1,000 mg capsule 1,000 mg PO Q3D RF: 0 deferasirox [Exjade] 500 mg Tablet, Dispersible 2,000 mg PO DAILY Qty: 120 RF: 6 Neupogen 300 mcg/0.5 mL syringe 300 mcg SUBCUT QWEEK RF: 0 garlic Tablet 300 mg PO Q3D RF: 0 acetaminophen [Tylenol] 325 mg Tablet 325 mg DAILY PRN (Reason: Pain (Scale Score 1-3)) RF: 0 Aranesp (in polysorbate) 500 mcg/mL Syringe 500 mcg SUBCUT QWEEK Qty: 4 RF: 5 melatonin 5 mg Capsule 5 mg PRN PRN (Reason: Insomnia) RF: 0 ascorbic acid (vitamin C) [Vitamin C] 500 mg tablet 1,000 mg PO Q3D RF: 0 Procrit 20,000 unit/mL Solution 30,000 unit SUBCUT 3XW 30 Days Qty: 19.5 RF: 3 Referrals: Aki Wright ARNP [Primary Care Provider] - Abraham De La Cruz MD [Physician] -
== END 2021-03-27 05:36 | disposition home or self-care (01) ==
PROVIDERS: Emergency Provider Emergency Medicine; PCP Nurse Practitioner Family
DX: D64.9 Anemia, unspecified (principal); D69.6 Thrombocytopenia, unspecified; R42 Dizziness and giddiness
CPT/HCPCS: 36415; 36430; 80053; 85007; 85025; 86850; 86900; 86901; 99284; P9016

== ENCOUNTER → 2021-03-29 13:07 | Outpatient (CLI) | payer MEDICARE, OTHER, SELFPAY ==
[2021-03-29] MEDS: EPOETIN ALFA-EPBX 10,000 UNIT/ML VIAL 30000 UNIT SUBCUT (14:25)
== END ==
PROVIDERS: PCP Nurse Practitioner Family; Referring Provider Internal Medicine Hematology & Oncology; Visit Provider Internal Medicine Hematology & Oncology
DX: D46.9 Myelodysplastic syndrome, unspecified (principal); D69.6 Thrombocytopenia, unspecified
CPT/HCPCS: 36415; 36430; 85007; 85025; 86850; 86900; 86901; 96372; P9016; Q5106

== ENCOUNTER → 2021-04-06 11:35 | Outpatient (CLI) | payer MEDICARE, OTHER, SELFPAY ==
[2021-04-06] MEDS: EPOETIN ALFA-EPBX 10,000 UNIT/ML VIAL 30000 UNIT SUBCUT (12:00)
== END ==
PROVIDERS: PCP Nurse Practitioner Family; Referring Provider Internal Medicine; Visit Provider Internal Medicine
DX: D46.9 Myelodysplastic syndrome, unspecified (principal); D69.6 Thrombocytopenia, unspecified
CPT/HCPCS: 36415; 85025; 96372; 99215; Q5106

== ENCOUNTER → 2021-04-07 09:00 | Outpatient (CLI) | payer MEDICARE, OTHER, SELFPAY ==
--- NOTE | 2021-04-07 09:02 | DI.ECHO.S_ITS ---
[facility] +---------+ : : [address] : : : : [id number] : : : : Phone: [phone] Echocardiogram Report + + :Name: JESE MEADE Study Date: 04/07/2021 Height: 72 in : :[facility] ReadingLocation: Weight: 220 lb : : Gender: Male BSA: 2.2 m2 : :: 1940 Age: 80 yrs BP: 136/74 mmHg: :Reason For Study: Atrial fibrillation : :Ordering Physician: KAYLIE, : :ROSENDO Performed By: Alberto Dukes : :Referring: ROSENDO LOTT : + + Interpretation Summary Normal sinus rhythm. Normal LV size and wall thickness; normal wall motion and LV systolic function. EF is 65-70%. Normal chamber sizes. Aortic sclerosis wtihout stenosis; otherwise no significatn valvular abnormalities. Mildly dilated aortic root and ascending aorta (measuring at 4 cm diameter). No prior study available for comparison. Procedure: A two-dimensional transthoracic echocardiogram with color flow and Doppler was performed. The study quality was technically adequate. There is no prior echocardiogram noted for this patient. Left Ventricle: The left ventricle is normal in size and wall thickness. Left ventricular systolic function is normal. The ejection fraction is estimated to be 65-70%. There are no focal wall motion abnormalities. Diastolic parameters suggest probable normal left ventricular diastolic function and normal filling pressures. Right Ventricle: The right ventricle is normal in size and function. Atria: The left atrial size is normal. The right atrium grossly appears normal in size. There is no Doppler evidence for an interatrial shunt. Mitral Valve: The mitral valve is normal in structure and function. There is no mitral regurgitation noted. Aortic Valve: There is mild aortic valve sclerosis. No aortic regurgitation is present. Tricuspid Valve: The tricuspid valve is normal in structure and function. There is a trace or physiologic amount of tricuspid regurgitation. Pulmonary artery pressures cannot be estimated because of the lack of a measurable TR jet velocity but the IVC suggests a CVP of around 3 mmHg. Pulmonic Valve: The pulmonic valve is not well seen, but is grossly normal. There is trace pulmonic regurgitation. Great Vessels: The aortic root is mildly dilated. The ascending aorta is mildly enlarged. The IVC is of normal diameter and collapses greater than 50% with a sniff. This suggests a low right atrial pressure of 3 mm Hg. Pericardium/ Pleura There is no pericardial effusion. There is no pleural effusion. MMode/2D Measurements & Calculations LVIDd: 5.7 cm LVOT diam: 2.9 cm LVIDs: 3.6 cm Ao root diam: 4.2 cm FS: 37.3 % asc Aorta Diam: 4.0 cm IVSd: 1.0 cm LVPWd: 1.1 cm LV bush. diameter/BSA (cm/m^2): 2.6 LV sys. diameter/BSA (cm/m^2): 1.6 LA A2 area: 21.1 cm2 TAPSE: 2.5 cm LA A4 area: 22.4 cm2 LA length (vol): 5.8 cm LA vol: 69.5 ml LA vol index: 31.3 ml/m2 Doppler Measurements & Calculations Ao V2 max: 239.5 cm/sec LVOT Max Senthil: 88.5 cm/sec Ao V2 mean: 183.0 cm/sec LV V1 max P.1 mmHg Ao max P.9 mmHg LV V1 VTI: 19.0 cm Ao mean P.6 mmHg JOE(I,D): 2.8 cm2 Ao V2 VTI: 45.3 cm JOE(V,D): 2.5 cm2 sev ratio: 0.42 JOE indexed to BSA (cm^2/m^2): 1.3 MV E max senthil: 78.9 cm/sec PA pr(Accel): 42.2 mmHg MV A max senthil: 82.8 cm/sec MV E/A: 0.95 Med Peak E' Senthil: 7.2 cm/sec E/E' med: 11.0 Lat Peak E' Senthil: 8.4 cm/sec E/E' lat: 9.4 E/e' average: 10.2 MV dec time: 0.27 sec SV(LVOT): 126.6 ml Electronically signed by: Vicky Blakely M.D. on Reading Physician:04/08/2021 01:21 AM
== END ==
PROVIDERS: PCP Nurse Practitioner Family; Referring Provider Internal Medicine; Visit Provider Internal Medicine
DX: D46.9 Myelodysplastic syndrome, unspecified (principal); R06.02 Shortness of breath; I48.91 Unspecified atrial fibrillation; I35.8 Other nonrheumatic aortic valve disorders; I77.810 Thoracic aortic ectasia
CPT/HCPCS: 93306

== ENCOUNTER → 2021-04-07 13:16 | Outpatient (CLI) | payer MEDICARE, OTHER, SELFPAY ==
[2021-04-07 13:26] VITALS: BP 132/93; PULSE 87; RESP 18; TEMP 36.9; O2SAT 97
[2021-04-07] MEDS: EPOETIN ALFA-EPBX 10,000 UNIT/ML VIAL 30000 UNIT SUBCUT (13:34)
== END ==
PROVIDERS: PCP Nurse Practitioner Family; Referring Provider Internal Medicine; Visit Provider Internal Medicine
DX: D46.9 Myelodysplastic syndrome, unspecified (principal); D69.6 Thrombocytopenia, unspecified; R06.02 Shortness of breath; I48.91 Unspecified atrial fibrillation; I35.8 Other nonrheumatic aortic valve disorders; I77.810 Thoracic aortic ectasia
CPT/HCPCS: 93306; 96372; Q5106

== ENCOUNTER → 2021-04-09 12:53 | Outpatient (CLI) | payer MEDICARE, OTHER, SELFPAY ==
[2021-04-09] MEDS: EPOETIN ALFA-EPBX 10,000 UNIT/ML VIAL 30000 UNIT SUBCUT (13:17)
--- NOTE | 2021-04-09 13:39 | PC.NURSE ---
Patient resting in chair. Given SUBCUT injection in back of left arm. Patient tolerated.
--- NOTE | 2021-04-14 08:44 | ONC.SCHED ---
per Shannan Macias, injection denied by insurance, I left a voicemail for the patient regarding denial and that we will call as soon as approval is received, gave him Shannan's direct line for any questions
== END ==
PROVIDERS: PCP Nurse Practitioner Family; Referring Provider Internal Medicine; Visit Provider Internal Medicine
DX: D46.9 Myelodysplastic syndrome, unspecified (principal); D69.6 Thrombocytopenia, unspecified
CPT/HCPCS: 96372; Q5106

== ENCOUNTER → 2021-04-12 07:54 | Outpatient (CLI) | payer MEDICARE, OTHER, SELFPAY ==
--- NOTE | 2021-04-12 08:42 | PM.TREADMILL ---
Cardiac Stress Test Report Referral & Results Date Patient Seen: 04/12/21 Time Patient Seen: 08:30 Requesting provider: Aki Wright Indication: SOB Procedure Note: Patient has [id number] anemia. Notes marked dyspnea on exertion and does not think he can walk on the treadmill for nearly long enough to complete the test. HGB 8.3 g/dL today. I recommend rescheduling for walking Lexiscan. No charge for this visit. Please note: Actual ECG tracings can be found in the PACS system.
== END ==
PROVIDERS: PCP Nurse Practitioner Family; Referring Provider Nurse Practitioner Family; Visit Provider Nurse Practitioner Family
DX: R06.02 Shortness of breath (principal); R06.09 Other forms of dyspnea; D64.9 Anemia, unspecified

== ENCOUNTER → 2021-04-12 09:23 | Outpatient (CLI) | payer MEDICARE, OTHER, SELFPAY ==
[2021-04-12 12:16] VITALS: BP 112/73; PULSE 73; RESP 16; TEMP 36.7
[2021-04-12] MEDS: EPOETIN ALFA-EPBX 10,000 UNIT/ML VIAL 30000 UNIT SUBCUT (13:04)
== END ==
PROVIDERS: PCP Nurse Practitioner Family; Referring Provider Internal Medicine; Visit Provider Internal Medicine
DX: D46.9 Myelodysplastic syndrome, unspecified (principal); D69.6 Thrombocytopenia, unspecified
CPT/HCPCS: 36415; 36430; 85007; 85025; 86850; 86900; 86901; 96372; P9016; Q5106

== ENCOUNTER → 2021-04-14 10:59 | Outpatient (CLI) | payer MEDICARE, OTHER, SELFPAY ==
[2021-04-14 11:14] VITALS: BP 135/66; PULSE 87; RESP 15; TEMP 37; O2SAT 99
--- NOTE | 2021-04-14 11:19 | PC.NURSE ---
EXJADE: PATIENT STATED THAT HE SAW AT [facility] YESTERDAY AND DECIDED WITH HER THAT HE COULD START TAKING THE EXJADE AGAIN AT 2 INSTEAD OF 4 TABLETS, PLTS ON MONDAY WERE 61.
[2021-04-14] MEDS: EPOETIN ALFA-EPBX 10,000 UNIT/ML VIAL 30000 UNIT SUBCUT (11:22)
--- NOTE | 2021-04-14 14:07 | ONC.MSW ---
T/C-Procrit/Retacrit Denial and Plan Activity: MOLD FILLING OPERATOR called [employer] to discuss the denials. After a lengthy discussion, they state that we can resubmit the auth for reconsideration, however, pt still does not meet the criteria for approval. Discussed with Dr. De La Cruz for next steps. He ultimately decided that since pt was going to [facility], and seeing him next Monday, that we should wait and see what the recommendations are and regroup with a plan next week. Called pt to discuss the above. He states that he went to [facility] yesterday, and that they did make some recommendations, which they will forward to Dr. De La Cruz. No faxes have come through yet, but MOLD FILLING OPERATOR did notify [employer] to watch for an [facility] fax re: this pt for Dr. De La Cruz.
== END ==
PROVIDERS: PCP Nurse Practitioner Family; Referring Provider Nurse Practitioner Family; Visit Provider Internal Medicine
DX: D46.9 Myelodysplastic syndrome, unspecified (principal); D69.6 Thrombocytopenia, unspecified
CPT/HCPCS: 96372; Q5106

== ENCOUNTER → 2021-04-19 10:34 | Outpatient (CLI) | payer MEDICARE, OTHER, SELFPAY ==
[2021-04-19 11:52] VITALS: BP 124/61; PULSE 78; RESP 18; TEMP 36.8; O2SAT 95
[2021-04-19] MEDS: EPOETIN ALFA-EPBX 10,000 UNIT/ML VIAL 30000 UNIT SUBCUT (12:15)
== END ==
PROVIDERS: PCP Nurse Practitioner Family; Referring Provider Internal Medicine; Visit Provider Internal Medicine
DX: D46.9 Myelodysplastic syndrome, unspecified (principal); D69.6 Thrombocytopenia, unspecified
CPT/HCPCS: 36415; 80053; 85007; 85025; 96372; Q5106

== ENCOUNTER → 2021-05-03 10:53 | Outpatient (CLI) | payer MEDICARE, OTHER, SELFPAY ==
[2021-05-03 11:51] LABS: COVID19 -Nasal RAPID Negative (Negative)
--- NOTE | 2021-05-04 09:16 | PM.TREADMILL ---
Cardiac Stress Test Report Referral & Results Date Patient Seen: 05/04/21 Time Patient Seen: 09:00 Requesting provider: Aki Wright Indication: SOB Procedure Note: After both written and verbal informed consent the patient had an IV started by the diagnostic imaging RN, and then was hooked up to the treadmill monitoring system. The Lexiscan material, and then the Cardiolite tracer, were administered sequentially. An additional 3 min was spent monitoring the patient while supine on the gurney. The patient had a normal response to all infused materials. Impression: Successful Mckenna protocol. Will await perfusion imaging. Please note: Actual ECG tracings can be found in the PACS system.
--- NOTE | 2021-05-04 16:30 | DI.NM.S_ITS ---
DATE OF SERVICE: PROCEDURE: Pharmacological perfusion study. DATE OF STUDY: May 03, 2021. INDICATIONS: Shortness of breath. RADIOPHARMACEUTICAL: 26.1 millicurie technetium-99m Myoview IV was injected at stress and 24.2 millicurie technetium-99m Myoview IV was injected at rest. CARDIAC STRESS: The patient underwent IV Lexiscan perfusion study under the supervision of an attending staff using standard Lexiscan as per protocol. The patient remained hemodynamically stable. Baseline EKG revealed sinus rhythm with right bundle branch block. During stress no new convincing ischemic changes or new significant arrhythmias. No significant symptoms were reported. RAW DATA: There is increased subdiaphragmatic activity. There appears to be spleen enlargement. The patient's weight is 226 pounds. GATED STUDY: Stress LV ejection fraction 73 percent without any obvious wall motion abnormalities. Resting end-diastolic volume 94 mL. TID ratio 0.98 which is within normal limits. Lung/heart ratio 0.33 which is within normal limits. MYOCARDIAL PERFUSION SCAN: Stress supine, resting supine and stress prone images were compared to each other. The stress supine and resting supine images revealed a small size, moderately decreased perfusion of inferior apex and distal inferior lateral wall which got improved during stress prone images. However, during stress prone images, there was mildly decreased perfusion of distal anterior lateral wall which was not seen during stress supine and resting supine images. There is no obvious reversible ischemia. CONCLUSION: I will call this study likely a normal myocardial perfusion study with evidence of shifting tissue attenuation artifact as stated above. The patient has increased subdiaphragmatic activity, as well as enlarged spleen. His weight is 226 pounds. There is an element of diaphragmatic tissue attenuation artifact as well. Left ventricular function is preserved. Overall this is a low-risk myocardial perfusion scan. Goldy Arechiga - BENNY/nico/sarahi doc#: [id number]/job#: [id number] dd: 05/04/2021 13:24:00 dt: 05/04/2021 15:50:00 DICTATING MD/COPIES TO: Lopez Leyva MD COPIES MNE: MANPREET;
== END ==
PROVIDERS: PCP Nurse Practitioner Family; Referring Provider Nurse Practitioner Family; Visit Provider Nurse Practitioner Family
DX: R06.02 Shortness of breath (principal); D46.9 Myelodysplastic syndrome, unspecified; D69.6 Thrombocytopenia, unspecified; Z20.822 Contact with and (suspected) exposure to COVID-19
CPT/HCPCS: 36415; 78452; 85007; 85025; 87635; 93016; 93017; 93018; C9803; A9502; J2785

== ENCOUNTER 2021-05-07 08:03 | Emergency (ER) | payer MEDICARE, OTHER, SELFPAY ==
[2021-05-07 08:19] VITALS: BP 143/71; PULSE 69; RESP 18; TEMP 35.8; O2SAT 100
--- NOTE | 2021-05-07 08:24 | DI.CT.S_ITS ---
PROCEDURE: CT KIDNEY URETER BLADDER (KUB) INDICATIONS: left flank TECHNIQUE: Axial sections were acquired from the lung bases to the pubic symphysis. Coronal and sagittal reformats were performed. For radiation dose reduction, the following was used: automated exposure control, adjustment of mA and/or kV according to patient size. COMPARISON:[facility], CT, CT ABDOMEN PELVIS W CON, 01/24/2021, 6:11. FINDINGS: Image quality: Excellent. Lung bases: Mild bibasilar atelectatic changes left more dense than right. Heart: Aortic valvular and coronary calcification. URINARY: Right Kidney: No stones or hydronephrosis. Right Ureter: No hydroureter. The distal ureter is obscured from view by beam hardening artifact in the pelvis. Left Kidney: Moderate left hydronephrosis and fairly extensive left perinephric inflammatory change. Left Ureter: Proximal left hydroureter. A 6 x 9 mm stone is present in the proximal left ureter. There is mild left retroperitoneal inflammation extending caudally. Bladder: The urinary bladder is partially obscured by beam hardening artifact from bilateral hip arthroplasties. The visible portion demonstrates a normal wall thickness. ABDOMEN: Liver: Unremarkable. Gallbladder: The gallbladder is distended and there are several small gallstones layering dependently. No pericholecystic inflammation. Biliary ducts: Unremarkable. Pancreas: Unremarkable. Spleen: The spleen is enlarged measuring 16.8 x 18.6 cm. Along the lateral caudal aspect, there is an irregular area of hypodensity which was not seen previously. Adrenal Glands: A 1.5 cm right adrenal nodule is stable. The left adrenal gland is normal. Stomach and Bowel: Stomach, small bowel loops, and colon are unremarkable. The appendix is normal in a subhepatic location. Peritoneum: No abnormal intraperitoneal fluid. No free air. Ventral Wall: No hernia. Abdominal Nodes: Innumerable tiny mesenteric and retroperitoneal nodes are seen. No new bulky adenopathy. Vessels: Aorta and inferior vena cava are normal in size. PELVIS: Pelvic Organs: Partially obscured by beam hardening artifact. Pelvic Nodes: Unremarkable. Miscellaneous: No inguinal hernias are seen. Bones: Bilateral hip arthroplasties. Partial ankylosis of sacroiliac joints and lower lumbar disc spaces. IMPRESSION: 1. Obstructing left proximal ureteral calcification. This causes fairly extensive perinephric and periureteric inflammation and moderate hydroureteronephrosis. 2. Stable splenomegaly suggesting myeloproliferative disease. An irregular peripheral area of hypodensity may represent a splenic infarct or malignant lesion which could also be symptomatic. Continued attention to this area in the spleen on subsequent studies is recommended. 3. Cholelithiasis. 4. Stable right adrenal nodule. Dictated by: Mariola King M.D. on 05/07/2021 at 9:09 Approved by: Mariola King M.D. on 05/07/2021 at 9:20
--- NOTE | 2021-05-07 08:28 | ED_ITS ---
HPI - Male Genitourinary General Chief complaint: Urogenital-Male Stated complaint: left flank pain/thinks kidney stone Time Seen by Provider: 05/07/21 08:12 Source: patient Mode of arrival: Ambulatory Limitations: no limitations History of Present Illness HPI Narrative: Patient is an 80-year-old male with history of myelofibrosis, kidney stones presenting today with left lower quadrant pain and dark urine. He said it started roughly about 6 hours ago he has some pressure and sometimes intense pain. He feels a little nauseated no vomiting. He did have a kidney stone back in January. He has been trying to alcohol eyes his urine. He has some ongoing shortness of breath which is usually related to anemia from his myelofibrosis. However he says it is a little bit worse it is being worked up as an out patient in his appointment with Cardiology he says the shortness of breath is not any worse today he has no chest pain or pressure. Onset (ago): hour(s) (6) Duration: constant Location: left inguinal region Related Data Home Medications Medication Instructions Recorded Confirmed acetaminophen [Tylenol] 325 mg DAILY PRN 04/29/19 03/17/21 melatonin 5 mg PRN PRN 12/02/20 03/17/21 ascorbic acid (vitamin C) 500 mg 1,000 mg PO Q3D tab 03/17/21 03/17/21 tablet filgrastim 300 mcg/0.5 mL 300 mcg SUBCUT QWEEK ml 03/17/21 03/17/21 injection syringe garlic 300 mg PO Q3D tab 03/17/21 03/17/21 multivitamin 1 cap PO Q3D cap 03/17/21 03/17/21 omega-3 fatty acids 1,000 mg 1,000 mg PO Q3D cap 03/17/21 03/17/21 capsule Previous Rx's Medication Instructions Recorded darbepoetin gene in polysorbat 500 mcg SUBCUT QWEEK #4 ml 11/10/20 [Aranesp (in polysorbate)] deferasirox [Exjade] 2,000 mg PO DAILY #120 ea 03/17/21 epoetin gene [Procrit] 30,000 unit SUBCUT 3XW 30 Days 03/24/21 #19.5 ml epoetin gene-epbx [Retacrit] 30,000 unit SUBCUT 3XW #12 dose 04/07/21 sodium bicarbonate 325 mg PO BID #100 tab 04/20/21 hydrocodone-acetaminophen 1 tab PO Q6H PRN #10 tab 05/07/21 tamsulosin 0.4 mg capsule 0.4 mg PO DAILY 30 Days #30 cap 05/07/21 Allergies Allergy/AdvReac Type Severity Reaction Status Date / Time No Known Drug Allergies Allergy Verified 05/07/21 08:34 Review of Systems Review of Systems ROS Unobtainable: All systems reviewed & are unremarkable except as noted in HPI and below Constitutional Constitutional: Denies chills, Denies fever(s), Denies lethargy and Denies weakness Cardiovascular Cardiovascular: Denies chest pain, Denies palpitations and Reports dyspnea on exertion Respiratory Respiratory: Denies cough and Reports dyspnea on exertion Gastrointestinal Gastrointestinal: Reports abdominal pain, Reports nausea and Denies vomiting Genitourinary Genitourinary: Reports as per HPI Genitourinary: Reports as per HPI Musculoskeletal Musculoskeletal: Denies back pain and Denies myalgias Integumentary/Breasts Skin/Breast: Denies pruritus, Denies erythema, Denies rash and Denies wounds Neurologic Neurologic: Denies weakness Endocrine Endocrine: Denies palpitations Patient History Medical History Adrenal nodule Allergic sinusitis Cataracts, bilateral (~1995) Chicken pox (~1943) Essential thrombocytosis Hepatomegaly HNP (herniated nucleus pulposus), lumbar Melanoma (~1983) Postnasal drip Serous otitis media 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 disorder Surgical History History of hip replacement, total Family History Father History of heart disease Mother Congestive heart failure Brother Cancer Sister Congestive heart failure Social History Smoking Status: Never smoker second hand exposure: No alcohol intake: current (wine at night) substance use type: does not use 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 HEENT: Head atraumatic,EOMI, pupils reactive, face symmetric, moist mucous membranes CARDIOVASCULAR: Regular rate and rhythm without murmurs, rubs or gallops. RESPIRATORY: Breath sounds equal bilaterally, no wheezes rales or rhonchi. ABDOMEN: Soft, nontender. Normoactive bowel sounds all 4 quadrants. No guarding or rebound. : No CVA tenderness EXTREMITIES: Normal range of motion, no clubbing or edema. Neurovascularly intact NEUROLOGICAL: Alert and oriented x4.Normal gait and speech. SKIN: Warm, dry, no laceration, no petechiae, no rashes or lesions. Course Orders Ordered: ED Orders 05/07/21 08:15 Urinalysis and Microscopic Stat 05/07/21 08:24 CT kidney ureter bladder (KUB) Stat 05/07/21 08:28 Complete Blood Count AUTO DIFF Stat Comprehensive Metabolic Panel Stat Lipase Stat Discontinued Medications Ketorolac Tromethamine (Ketorolac 30 Mg/Ml Vial) 15 mg IV NOW ONE Stop: 05/07/21 08:25 Last Admin: 05/07/21 08:32 Dose: 15 mg Documented by: [email or web address] Ondansetron HCl (Ondansetron 4 Mg/2 Ml Inj) 4 mg IV NOW ONE Stop: 05/07/21 08:25 Last Admin: 05/07/21 08:32 Dose: 4 mg Documented by: [email or web address] Vital Signs Vital signs: Vital Signs - 8 hr 05/07/21 08:19 05/07/21 10:20 Temperature 96.4 F L Pulse Rate 69 66 Respiratory Rate 18 18 Blood Pressure 143/71 H 129/73 Pulse Oximetry 100 98 MDM - Male Genitourinary Lab Data Attestation: I reviewed the patient's lab results. Result diagrams: 05/07/21 08:28 05/07/21 08:28 Labs: Lab Results 05/07/21 05/07/21 05/07/21 Range/Units 08:15 08:28 08:28 WBC 12.6 H (4.5-11.0) X10^3/uL RBC 2.76 L (4.5-5.9) X10^6/uL Hgb 9.7 L (13.5-17.5) g/dL Hct 29.3 L (41-53) % MCV 106.3 H (80-100) fL MCH 35.3 H (26-34) PG MCHC 33.2 (30-36) % RDW 36.7 H (11.6-14.8) % Plt Count 62 L (150-400) X10^3/uL Neut % (Auto) Not Reportable Lymph % (Auto) Not Reportable [place] % (Auto) Not Reportable Eos % (Auto) Not Reportable Baso % (Auto) Not Reportable Lymph # (Auto) Not Reportable [place] # (Auto) Not Reportable Baso # (Auto) Not Reportable Total Counted 100 Seg Neutrophils % 32.0 L (38-70) % Band Neutrophils % 11.0 H (3-7) % Lymphocytes % (Manual) 12.0 L (25-45) % Atypical Lymphs % 2.0 H ( - 0) % Monocytes % (Manual) 32.0 H (2-11) % Metamyelocytes % 5.0 H (-0) % Myelocytes % 6.0 H (-0) % Neutrophils # (Manual) 5418 (7488-6529) /uL RBC Morphology See below Polychromasia 2+ H Anisocytosis 3+ H Macrocytosis 1+ H Sodium 136 L (137-145) mmol/L Potassium 4.3 (3.4-5.1) mmol/L Chloride 102 (98-107) mmol/L Carbon Dioxide 26 (22-32) mmol/L BUN 14 (9-20) mg/dL Creatinine 0.75 (0.66-1.25) mg/dL Estimated GFR > 60.0 (>60) mL/min BUN/Creatinine Ratio 18.7 (6-22) Glucose 157 H (80-110) mg/dL Calcium 8.3 L (8.4-10.2) mg/dL Total Bilirubin 1.0 (0.2-1.3) mg/dL AST 99 H (17-59) IU/L ALT 122 H (<50) IU/L Alkaline Phosphatase 46 (38-126) U/L Total Protein 6.8 (6.3-8.2) g/dL Albumin 3.5 (3.5-5.0) g/dL Globulin 3.3 (1.7-4.1) g/dL Albumin/Globulin Ratio 1.1 (1.0-2.8) Lipase 50 (23-300) U/L Urine Color Yellow Urine Appearance Clear Urine pH 5.0 (4.5-8.0) Ur Specific [place] 1.025 (1.000-1.035) Urine Protein 1+ H (Negative) Urine Glucose (UA) Negative (Negative) g/dL Urine Ketones Negative (NEGATIVE) Urine Occult Blood 3+ H (Negative) Urine Nitrate Negative (Negative) Urine Bilirubin Negative (NEGATIVE) Urine Urobilinogen 0.2 (0.2) E.U./dL Ur Leukocyte Esterase Negative (NEGATIVE) Urine RBC 30-100/hpf H (0-5/HPF) Urine WBC 0-1/hpf (0-5/HPF) Uric Acid Crystals Many H (None) Urine Bacteria None seen (None) Ur Culture Indicated? Cult not indicated Imaging Data CT scan - abdomen/pelvis: Radiologist's Impression: PROCEDURE: CT KIDNEY URETER BLADDER (KUB) INDICATIONS: left flank TECHNIQUE: Axial sections were acquired from the lung bases to the pubic symphysis. Coronal and sagittal reformats were performed. For radiation dose reduction, the following was used: automated exposure control, adjustment of mA and/or kV according to patient size. COMPARISON:[facility], CT, CT ABDOMEN PELVIS W RADHA, 01/24/2021, 6:11. FINDINGS: Image quality: Excellent. Lung bases: Mild bibasilar atelectatic changes left more dense than right. Heart: Aortic valvular and coronary calcification. URINARY: Right Kidney: No stones or hydronephrosis. Right Ureter: No hydroureter. The distal ureter is obscured from view by beam hardening artifact in the pelvis. Left Kidney: Moderate left hydronephrosis and fairly extensive left perinephric inflammatory change. Left Ureter: Proximal left hydroureter. A 6 x 9 mm stone is present in the proximal left ureter. There is mild left retroperitoneal inflammation extending caudally. Bladder: The urinary bladder is partially obscured by beam hardening artifact f rom bilateral hip arthroplasties. The visible portion demonstrates a normal wall thickness. ABDOMEN: Liver: Unremarkable. Gallbladder: The gallbladder is distended and there are several small gallstones layering dependently. No pericholecystic inflammation. Biliary ducts: Unremarkable. Pancreas: Unremarkable. Spleen: The spleen is enlarged measuring 16.8 x 18.6 cm. Along the lateral caudal aspect, there is an irregular area of hypodensity which was not seen previously. Adrenal Glands: A 1.5 cm right adrenal nodule is stable. The left adrenal gland is normal. Stomach and Bowel: Stomach, small bowel loops, and colon are unremarkable. The appendix is normal in a subhepatic location. Peritoneum: No abnormal intraperitoneal fluid. No free air. Ventral Wall: No hernia. Abdominal Nodes: Innumerable tiny mesenteric and retroperitoneal nodes are seen. No new bulky adenopathy. Vessels: Aorta and inferior vena cava are normal in size. PELVIS: Pelvic Organs: Partially obscured by beam hardening artifact. Pelvic Nodes: Unremarkable. Miscellaneous: No inguinal hernias are seen. Bones: Bilateral hip arthroplasties. Partial ankylosis of sacroiliac joints and lower lumbar disc spaces. IMPRESSION: 1. Obstructing left proximal ureteral calcification. This causes fairly extensive perinephric and periureteric inflammation and moderate hydroureteronephrosis. 2. Stable splenomegaly suggesting myeloproliferative disease. An irregular peripheral area of hypodensity may represent a splenic infarct or malignant lesion which could also be symptomatic. Continued attention to this area in the spleen on subsequent studies is recommended. 3. Cholelithiasis. 4. Stable right adrenal nodule. Dictated by: Mariola King M.D. on 05/07/2021 at 9:09 MDM Narrative Medical decision making narrative: Patient's pain improved significantly after Toradol. He is found to have stone. At the time no need for antibiotics renal function is within normal limits. Recommend outpatient follow-up with Urology. Discharge Plan Departure Patient Disposition: Home Clinical Impression: Kidney stone on left side Instructions: DI for Kidney Stones Activity Restrictions/Additional Instructions: * You've been diagnosed with kidney stone * What to do: Increase fluid intake, Strain urine, try to catch stone * Please follow-up with your primary care provider in the next 2-3 days, you may require urology consultation please discuss this with -If you should have fever, or pain is uncontrolled with medication at home or any other new or concerning symptoms return to ER for further evaluation MEDICATIONS--> sent to [facility] in [place] Take Motrin 600 mg every 8 hours as needed for pain for 1 week only Take [place] every 6 hours if needed for severe pain Take Flomax once daily CONTROLLED SUBSTANCE DISCHARGE (Narcotoic/benzodiazepine) 1. You have been prescribed narcotic medications, it does have acetaminophen/Tylenol/paracetamol in it so do not take extra Tylenol or Tylenol containing products 2. Please understand that we cannot provide further refills of narcotics, benzodiazepines or controlled substances through the ED and her pain management will need to be through your provider. 3. While on these medications you cannot drive or operate heavy machinery. 4. You cannot sign legal documents or perform any duties such as this. 5. As long as you're taking opiate pain medications he should also be taking a stool softener such as Colace, Dulcolax, MiraLAX or prune juice, to help avoid constipation. Prescriptions: New hydrocodone-acetaminophen 5-325 mg tablet 1 tab PO Q6H PRN (Reason: pain) Qty: 10 RF: 0 No Action multivitamin Capsule 1 cap PO Q3D RF: 0 omega-3 fatty acids [Fish Oil Concentrate] 1,000 mg capsule 1,000 mg PO Q3D RF: 0 deferasirox [Exjade] 500 mg Tablet, Dispersible 2,000 mg PO DAILY Qty: 120 RF: 6 tamsulosin [Flomax] 0.4 mg capsule 0.4 mg PO DAILY 30 Days Qty: 30 RF: 0 Neupogen 300 mcg/0.5 mL syringe 300 mcg SUBCUT QWEEK RF: 0 garlic Tablet 300 mg PO Q3D RF: 0 acetaminophen [Tylenol] 325 mg Tablet 325 mg DAILY PRN (Reason: Pain (Scale Score 1-3)) RF: 0 Aranesp (in polysorbate) 500 mcg/mL Syringe 500 mcg SUBCUT QWEEK Qty: 4 RF: 5 melatonin 5 mg Capsule 5 mg PRN PRN (Reason: Insomnia) RF: 0 Retacrit 40,000 unit/mL Solution 30,000 unit SUBCUT 3XW Qty: 12 RF: 5 sodium bicarbonate 325 mg Tablet 325 mg PO BID Qty: 100 RF: 0 ascorbic acid (vitamin C) [Vitamin C] 500 mg tablet 1,000 mg PO Q3D RF: 0 Procrit 20,000 unit/mL Solution 30,000 unit SUBCUT 3XW 30 Days Qty: 19.5 RF: 3 Referrals: Aki Wright ARNP [Primary Care Provider] - Zaid Hudson MD [Physician] -
[2021-05-07] MEDS: ONDANSETRON 4 MG/2 ML INJ IV (08:32)
[2021-05-07] MEDS: KETOROLAC 30 MG/ML VIAL 15 MG IV (08:32)
[2021-05-07 08:33] LABS: Appearance Urine UA CLEAR; Bacteria Urine None Seen; Bilirubin Urine UA NEGATIVE (NEGATIVE); Color Urine UA YELLOW; Glucose Urine UA NEGATIVE (Negative); Ketones Urine UA NEGATIVE (NEGATIVE); Leukocyte Esterase Urine UA NEGATIVE (NEGATIVE); Nitrite Urine UA NEGATIVE (Negative); Occult Blood Urine UA 3+ (Negative); Protein Urine UA 1+ (Negative); Specific Gravity Urine UA 1.025 (1.000-1.035); Urobilinogen Urine UA 0.2 E.U./dL (0.2)
[2021-05-07 08:42] LABS: RBC Urine 30-100/HPF (0-5/HPF); WBC Urine 0-1/HPF (0-5/HPF)
[2021-05-07 08:43] LABS: Culture Indicated Urine Cult Not Indicated; Uric Acid Crystals Urine Many
[2021-05-07 08:45] LABS: Alanine Aminotransferase 122 IU/L (<50); Albumin 3.5 g/dL (3.5-5.0); Albumin Globulin Ratio 1.1 (1.0-2.8); Alkaline Phosphatase 46 U/L (38-126); Aspartate Aminotransferase 99 IU/L (17-59); BUN Creatinine Ratio 18.7 (6-22); Blood Urea Nitrogen 14 mg/dL (9-20); Calcium 8.3 mg/dL (8.4-10.2); Carbon Dioxide 26 mmol/L (22-32); Chloride 102 mmol/L (98-107); Estimated Glomerular Filt Rate > 60.0 mL/min (>60); Globulin 3.3 g/dL (1.7-4.1); Glucose 157 mg/dL (80-110); HEMOLYSIS < 15 (0-50); Lipase 50 U/L (23-300); Potassium 4.3 mmol/L (3.4-5.1); Sodium 136 mmol/L (137-145); Total Protein 6.8 g/dL (6.3-8.2)
[2021-05-07 08:51] LABS: Hematocrit 29.3 % (41-53); Hemoglobin 9.7 g/dL (13.5-17.5); Mean Corpuscular HGB Conc 33.2 % (30-36); Mean Corpuscular Hemoglobin 35.3 PG (26-34); Mean Corpuscular Volume 106.3 fL (80-100); Platelet Count 62 X10^3/uL (150-400); Red Blood Cell Count 2.76 X10^6/uL (4.5-5.9); Red Cell Distribution Width 36.7 % (11.6-14.8); White Blood Cell Count 12.6 X10^3/uL (4.5-11.0)
[2021-05-07 08:58] LABS: Add Manual Diff / Slide Review YES
[2021-05-07 09:17] LABS: Neutrophils Absolute Manual 5418 /uL (3000-5900); Total Cells Counted 100
[2021-05-07 09:18] LABS: Anisocytosis 3+; Macrocytosis 1+
[2021-05-07 09:19] LABS: Polychromasia 2+
[2021-05-07 10:20] VITALS: BP 129/73; PULSE 66; RESP 18; O2SAT 98
== END 2021-05-07 10:22 | disposition home or self-care (01) ==
PROVIDERS: Emergency Provider Emergency Medicine; PCP Nurse Practitioner Family
DX: N20.0 Calculus of kidney (principal); Z87.442 Personal history of urinary calculi; R06.00 Dyspnea, unspecified
CPT/HCPCS: 36415; 74176; 80053; 81001; 83690; 85007; 85025; 96374; 96375; 99284; J1885; J2405

== ENCOUNTER 2021-05-10 00:17 | Emergency (ER) | payer MEDICARE, OTHER, SELFPAY ==
[2021-05-10 00:21] VITALS: BP 148/67; PULSE 95; RESP 20; TEMP 36.9; O2SAT 97
[2021-05-10] MEDS: KETOROLAC 30 MG/ML VIAL IV (01:00)
[2021-05-10 01:05] LABS: WBC Urine None Seen (0-5/HPF)
[2021-05-10 01:07] LABS: Appearance Urine UA CLEAR; Bilirubin Urine UA NEGATIVE (NEGATIVE); Color Urine UA YELLOW; Glucose Urine UA NEGATIVE (Negative); Ketones Urine UA NEGATIVE (NEGATIVE); Leukocyte Esterase Urine UA NEGATIVE (NEGATIVE); Nitrite Urine UA NEGATIVE (Negative); Occult Blood Urine UA 1+ (Negative); Protein Urine UA TRACE (Negative); Specific Gravity Urine UA 1.025 (1.000-1.035); Urobilinogen Urine UA 0.2 E.U./dL (0.2)
[2021-05-10 01:09] LABS: BUN Creatinine Ratio 12.6 (6-22); Blood Urea Nitrogen 17 mg/dL (9-20); Calcium 8.3 mg/dL (8.4-10.2); Carbon Dioxide 24 mmol/L (22-32); Chloride 103 mmol/L (98-107); Estimated Glomerular Filt Rate 50.7 mL/min (>60); Glucose 155 mg/dL (80-110); HEMOLYSIS < 15 (0-50); Lactate (Lactic Acid) 2.5 mmol/L (0.7-2.1); Potassium 4.6 mmol/L (3.4-5.1); Sodium 135 mmol/L (137-145)
[2021-05-10 01:13] LABS: Hematocrit 27.6 % (41-53); Hemoglobin 8.9 g/dL (13.5-17.5); Mean Corpuscular HGB Conc 32.4 % (30-36); Mean Corpuscular Hemoglobin 34.7 PG (26-34); Mean Corpuscular Volume 107.1 fL (80-100); Platelet Count 78 X10^3/uL (150-400); Red Blood Cell Count 2.58 X10^6/uL (4.5-5.9); Red Cell Distribution Width 36.3 % (11.6-14.8); White Blood Cell Count 11.4 X10^3/uL (4.5-11.0)
[2021-05-10 01:15] LABS: Add Manual Diff / Slide Review YES
[2021-05-10 01:19] LABS: Bacteria Urine Few (2-10); Hyaline Casts Urine 1-5/LPF; RBC Urine 1-5/HPF (0-5/HPF); Squamous Epithelial Cell Urine 1-5 /HPF (0-5/HPF); Uric Acid Crystals Urine Many
[2021-05-10 01:20] LABS: Mucus Urine 1+ (Negative)
--- NOTE | 2021-05-10 01:25 | DI.US.S_ITS ---
PROCEDURE: US RENAL COMPLETE INDICATIONS: KNOWN LEFT URETERAL STONE WITH HYDRONEPHROSIS TECHNIQUE: Real-time scanning was performed of the kidneys and bladder, with image documentation. COMPARISON: [facility], CT, CT KIDNEY URETER BLADDER (KUB), 05/07/2021, 8:55. FINDINGS: Kidneys: Kidneys are normal in size. Right kidney measures 12.3 cm long; left kidney measures 14.0 cm long. Right renal cortical thickness is 1.6 cm; left renal cortical thickness is 1.4 cm. Renal cortical echotexture is normal. The right kidney has no hydronephrosis or nephrolithiasis. The left kidney has mild left hydronephrosis with proximal ureteral dilatation of 2.1 centimeters. A left proximal stone is not seen within the proximal ureter, and distally cannot be evaluated due to overlying bowel gas. No suspicious solid mass lesions. Bladder: Pre-void bladder volume is 130 mL. Post-void residual is 51 mL. Pre-void images demonstrate no intraluminal masses or stones. On pre-void images, right but not left ureteral jets are noted with color Doppler interrogation. (Of note, ureteral jets may not be detectable in up to 25% of cases due to insufficient differences in specific gravity between ureteral and bladder urine). Miscellaneous: Multiple small stones and sludge were noted in the gallbladder. No gallbladder wall thickening or pericholecystic fluid. Negative sonographic Suh's sign. The spleen is enlarged measuring 19.4 centimeters. IMPRESSION: 1. Left hydronephrosis consistent with known left kidney stone. 2. Cholelithiasis without evidence of cholecystitis. 3. Splenomegaly. Comment: Final report is concordant with preliminary interpretation by [facility] Dictated by: Pasquale Vaughn M.D. on 05/10/2021 at 8:12 Approved by: Pasquale Vaughn M.D. on 05/10/2021 at 8:17
--- NOTE | 2021-05-10 01:26 | ED_ITS ---
HPI - Recheck/Abnormal Lab/Rx General Chief Complaint: Recheck/Abnormal Lab/Rx Stated Complaint: left side/back pain thinks kidney stone Time Seen by Provider: 05/10/21 00:32 Source: patient Mode of arrival: Ambulatory Limitations: no limitations History of Present Illness HPI narrative: patient is an 80-year-old male. He was seen here in the emergency department approximately 2 days ago for left-sided flank discomfort at that time it was found that he had a rather large proximal left-sided ureteral stone. Labs are unremarkable and he was subsequently discharged home with pain control and instructions to follow-up with urology. He has been taking the medications as needed. Earlier today the pain increased and it was not relieved with his home medicine. Has had some nausea but no vomiting. No fevers. Related Data Home Medications Medication Instructions Recorded Confirmed acetaminophen [Tylenol] 325 mg DAILY PRN 04/29/19 03/17/21 melatonin 5 mg PRN PRN 12/02/20 03/17/21 ascorbic acid (vitamin C) 500 mg 1,000 mg PO Q3D tab 03/17/21 03/17/21 tablet filgrastim 300 mcg/0.5 mL 300 mcg SUBCUT QWEEK ml 03/17/21 03/17/21 injection syringe garlic 300 mg PO Q3D tab 03/17/21 03/17/21 multivitamin 1 cap PO Q3D cap 03/17/21 03/17/21 omega-3 fatty acids 1,000 mg 1,000 mg PO Q3D cap 03/17/21 03/17/21 capsule Previous Rx's Medication Instructions Recorded darbepoetin gene in polysorbat 500 mcg SUBCUT QWEEK #4 ml 11/10/20 [Aranesp (in polysorbate)] deferasirox [Exjade] 2,000 mg PO DAILY #120 ea 03/17/21 epoetin gene [Procrit] 30,000 unit SUBCUT 3XW 30 Days 03/24/21 #19.5 ml epoetin gene-epbx [Retacrit] 30,000 unit SUBCUT 3XW #12 dose 04/07/21 sodium bicarbonate 325 mg PO BID #100 tab 04/20/21 hydrocodone-acetaminophen 1 tab PO Q6H PRN #10 tab 05/07/21 tamsulosin 0.4 mg capsule 0.4 mg PO DAILY 30 Days #30 cap 05/07/21 ketorolac 10 mg PO TID PRN 5 Days #15 tab 05/10/21 Allergies Allergy/AdvReac Type Severity Reaction Status Date / Time No Known Drug Allergies Allergy Verified 05/07/21 08:34 Review of Systems Constitutional Constitutional: Denies fever(s) Cardiovascular Cardiovascular: Denies chest pain and Denies dyspnea Respiratory Respiratory: Denies dyspnea Gastrointestinal Gastrointestinal: Reports abdominal pain, Reports nausea and Denies vomiting Genitourinary Genitourinary: Reports system reviewed and no additional complaints, except as documented and Reports flank pain Genitourinary: Reports flank pain Musculoskeletal Musculoskeletal: Reports system reviewed and no additional complaints, except as documented Integumentary/Breasts Skin/Breast: Reports system reviewed and no additional complaints, except as documented Neurologic Neurologic: Reports system reviewed and no additional complaints, except as documented Hematologic/Lymphatic On Anticoagulants: No Allergic/Immunologic Allergic/Immunologic: Reports system reviewed and no additional complaints, except as documented Patient History Medical History Adrenal nodule Allergic sinusitis Cataracts, bilateral (~1995) Chicken pox (~1943) Essential thrombocytosis Hepatomegaly HNP (herniated nucleus pulposus), lumbar Melanoma (~1983) Postnasal drip Serous otitis media 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 disorder Surgical History History of hip replacement, total Family History Father History of heart disease Mother Congestive heart failure Brother Cancer Sister Congestive heart failure Social History Smoking Status: Never smoker second hand exposure: No alcohol intake: current (wine at night) substance use type: does not use 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 Status: Never smoker alcohol intake frequency: 0-2 drinks per day Alcohol type: wine Substance Use Type: does not use Exam Initial Vital Signs Initial Vital Signs: Vital Signs Temperature 98.4 F 05/10/21 00:21 Pulse Rate 95 H 05/10/21 00:21 Respiratory Rate 20 05/10/21 00:21 Blood Pressure 148/67 H 05/10/21 00:21 Pulse Oximetry 97 06/14/21 00:21 Const General: cooperative and comfortable Limitations: mental status not altered HENMT Head: normal to inspection and normocephalic Resp Effort & Inspection: normal respiratory effort Cardio Rate: regular rate GI Inspection: non-distended Skin Lesions: no lesions Rashes: no rashes Neuro General: patient alert, patient awake and patient oriented x3 Cognition: normal cognition Speech: speech normal Extrem General: normal to inspection and capillary refill normal Psych Appearance: grossly normal and well kempt Course Orders Ordered: ED Orders 05/10/21 00:53 Basic Metabolic Panel Stat Complete Blood Count AUTO DIFF Stat Lactate (Lactic Acid) Stat 05/10/21 01:00 Urinalysis and Microscopic Stat Urine Culture Stat 05/10/21 01:25 US renal complete Stat 05/10/21 05:35 Consult to Urology Stat Discontinued Medications Ketorolac Tromethamine (Ketorolac 30 Mg/Ml Vial) 30 mg IV NOW ONE Stop: 05/10/21 00:54 Last Admin: 05/10/21 01:00 Dose: 30 mg Documented by: ASHLYN Vital Signs Vital signs: Vital Signs - 8 hr 05/10/21 00:21 05/10/21 04:03 Temperature 98.4 F Pulse Rate 95 H 75 Respiratory Rate 20 16 Blood Pressure 148/67 H 145/70 H Pulse Oximetry 97 96 MDM - Recheck/Abnormal Lab/Rx Medical Records Attestation: I reviewed the patient's medical records. Lab Data Attestation: I reviewed the patient's lab results. Result diagrams: 05/10/21 00:53 05/10/21 00:53 Labs: Lab Results 05/10/21 05/10/21 05/10/21 Range/Units 00:53 00:53 00:53 WBC 11.4 H (4.5-11.0) X10^3/uL RBC 2.58 L (4.5-5.9) X10^6/uL Hgb 8.9 L (13.5-17.5) g/dL Hct 27.6 L (41-53) % MCV 107.1 H (80-100) fL MCH 34.7 H (26-34) PG MCHC 32.4 (30-36) % RDW 36.3 H (11.6-14.8) % Plt Count 78 L (150-400) X10^3/uL Neut % (Auto) Not Reportable Lymph % (Auto) Not Reportable [place] % (Auto) Not Reportable Eos % (Auto) Not Reportable Baso % (Auto) Not Reportable Lymph # (Auto) Not Reportable [place] # (Auto) Not Reportable Baso # (Auto) Not Reportable Total Counted 100 Seg Neutrophils % 32.0 L (38-70) % Band Neutrophils % 13.0 H (3-7) % Lymphocytes % (Manual) 19.0 L (25-45) % Atypical Lymphs % 3.0 H ( - 0) % Monocytes % (Manual) 24.0 H (2-11) % Eosinophils % (Manual) 1.0 L (2-4) % Metamyelocytes % 4.0 H (-0) % Myelocytes % 4.0 H (-0) % Neutrophils # (Manual) 5130 (8334-6092) /uL Nucleated RBCs 1 H ( - 0) #/Diff RBC Morphology See below Polychromasia 1+ H Anisocytosis 3+ H Macrocytosis 1+ H Sodium 135 L (137-145) mmol/L Potassium 4.6 (3.4-5.1) mmol/L Chloride 103 (98-107) mmol/L Carbon Dioxide 24 (22-32) mmol/L BUN 17 (9-20) mg/dL Creatinine 1.35 H (0.66-1.25) mg/dL Estimated GFR 50.7 L (>60) mL/min BUN/Creatinine Ratio 12.6 (6-22) Glucose 155 H (80-110) mg/dL Lactate 2.5 H (0.7-2.1) mmol/L Calcium 8.3 L (8.4-10.2) mg/dL Urine Color Urine Appearance Urine pH (4.5-8.0) Ur Specific [place] (1.000-1.035) Urine Protein (Negative) Urine Glucose (UA) (Negative) g/dL Urine Ketones (NEGATIVE) Urine Occult Blood (Negative) Urine Nitrate (Negative) Urine Bilirubin (NEGATIVE) Urine Urobilinogen (0.2) E.U./dL Ur Leukocyte Esterase (NEGATIVE) Urine RBC (0-5/HPF) Urine WBC (0-5/HPF) Ur Squamous Epith Cells (0-5/HPF) Uric Acid Crystals (None) Urine Bacteria (None) Hyaline Casts (None) Urine Mucus (Negative) Ur Culture Indicated? 05/10/21 05/10/21 Range/Units 01:00 03:02 WBC (4.5-11.0) X10^3/uL RBC (4.5-5.9) X10^6/uL Hgb (13.5-17.5) g/dL Hct (41-53) % MCV (80-100) fL MCH (26-34) PG MCHC (30-36) % RDW (11.6-14.8) % Plt Count (150-400) X10^3/uL Neut % (Auto) Lymph % (Auto) [place] % (Auto) Eos % (Auto) Baso % (Auto) Lymph # (Auto) [place] # (Auto) Baso # (Auto) Total Counted Seg Neutrophils % (38-70) % Band Neutrophils % (3-7) % Lymphocytes % (Manual) (25-45) % Atypical Lymphs % ( - 0) % Monocytes % (Manual) (2-11) % Eosinophils % (Manual) (2-4) % Metamyelocytes % (-0) % Myelocytes % (-0) % Neutrophils # (Manual) (4694-8755) /uL Nucleated RBCs ( - 0) #/Diff RBC Morphology Polychromasia Anisocytosis Macrocytosis Sodium (137-145) mmol/L Potassium (3.4-5.1) mmol/L Chloride (98-107) mmol/L Carbon Dioxide (22-32) mmol/L BUN (9-20) mg/dL Creatinine (0.66-1.25) mg/dL Estimated GFR (>60) mL/min BUN/Creatinine Ratio (6-22) Glucose (80-110) mg/dL Lactate 1.0 (0.7-2.1) mmol/L Calcium (8.4-10.2) mg/dL Urine Color Yellow Urine Appearance Clear Urine pH 5.0 (4.5-8.0) Ur Specific [place] 1.025 (1.000-1.035) Urine Protein Trace H (Negative) Urine Glucose (UA) Negative (Negative) g/dL Urine Ketones Negative (NEGATIVE) Urine Occult Blood 1+ H (Negative) Urine Nitrate Negative (Negative) Urine Bilirubin Negative (NEGATIVE) Urine Urobilinogen 0.2 (0.2) E.U./dL Ur Leukocyte Esterase Negative (NEGATIVE) Urine RBC 1-5/hpf D (0-5/HPF) Urine WBC None seen (0-5/HPF) Ur Squamous Epith Cells 1-5 /hpf (0-5/HPF) Uric Acid Crystals Many H (None) Urine Bacteria Few (2-10) H (None) Hyaline Casts 1-5/lpf (None) Urine Mucus 1+ H (Negative) Ur Culture Indicated? Culture not indicate Imaging Data Renal ultrasound: Radiologist's Impression: Left-sided hydronephrosis and proximal hydroureter MDM Narrative Medical decision making narrative: Patient reports a complete resolution of symptoms after 1 dose of Toradol. The seem to help him the last time he was here as well. His labs today are reassuring. His leukocytosis is actually improved from 2 days ago however he states that this does fluctuate somewhat given his myelodysplastic disorder. His urine does have bacteria in it but no other signs of an infection. Was cultured today. He does have a slight increase in his creatinine decrease in his GFR. Renal ultrasound today does not identify the proximal ureteral stone that was seen on the CT scan. I suspect that it has migrated somewhat distal. There continues to be hydronephrosis on the left. Given his lack of fever, improvement of leukocytosis, negative lactate, a lack of definitive signs of a urinary tract infection that we should hold on any antibiotics for now and we will hold on urologic consultation is a do not feel that an emergent stenting is needed given his presentation. He has made contact with local urologist and he will contact the office again tomorrow. He was given strict return precautions. He expressed understanding and agreement. Discharge Plan Departure Patient Disposition: Home Clinical Impression: Left ureteral calculus, Hydronephrosis Activity Restrictions/Additional Instructions: I recommend that tomorrow you may contact with the urology office here at the hospital for follow-up. A urine culture was pending at the time of your discharge. We will contact you if we need to start any antibiotics. Please return to the emergency department for any new or worsening symptoms Prescriptions: New ketorolac 10 mg tablet 10 mg PO TID PRN (Reason: pain) 5 Days Qty: 15 RF: 0 No Action multivitamin Capsule 1 cap PO Q3D RF: 0 omega-3 fatty acids [Fish Oil Concentrate] 1,000 mg capsule 1,000 mg PO Q3D RF: 0 deferasirox [Exjade] 500 mg Tablet, Dispersible 2,000 mg PO DAILY Qty: 120 RF: 6 tamsulosin [Flomax] 0.4 mg capsule 0.4 mg PO DAILY 30 Days Qty: 30 RF: 0 Neupogen 300 mcg/0.5 mL syringe 300 mcg SUBCUT QWEEK RF: 0 garlic Tablet 300 mg PO Q3D RF: 0 acetaminophen [Tylenol] 325 mg Tablet 325 mg DAILY PRN (Reason: Pain (Scale Score 1-3)) RF: 0 Aranesp (in polysorbate) 500 mcg/mL Syringe 500 mcg SUBCUT QWEEK Qty: 4 RF: 5 melatonin 5 mg Capsule 5 mg PRN PRN (Reason: Insomnia) RF: 0 Retacrit 40,000 unit/mL Solution 30,000 unit SUBCUT 3XW Qty: 12 RF: 5 sodium bicarbonate 325 mg Tablet 325 mg PO BID Qty: 100 RF: 0 ascorbic acid (vitamin C) [Vitamin C] 500 mg tablet 1,000 mg PO Q3D RF: 0 Procrit 20,000 unit/mL Solution 30,000 unit SUBCUT 3XW 30 Days Qty: 19.5 RF: 3 hydrocodone-acetaminophen 5-325 mg tablet 1 tab PO Q6H PRN (Reason: pain) Qty: 10 RF: 0 Referrals: Aki Wright ARNP [Primary Care Provider] -
[2021-05-10 01:37] LABS: Neutrophils Absolute Manual 5130 /uL (3000-5900); Nucleated Red Blood Cells 1 #/Diff; Total Cells Counted 100
[2021-05-10 01:38] LABS: Anisocytosis 3+; Polychromasia 1+
[2021-05-10 01:39] LABS: Macrocytosis 1+
[2021-05-10 02:55] LABS: Reflexed Lactate in 2 Hours Y
[2021-05-10 04:03] VITALS: BP 145/70; PULSE 75; RESP 16; O2SAT 96
== END 2021-05-10 04:58 | disposition home or self-care (01) ==
PROVIDERS: Emergency Provider Emergency Medicine; PCP Nurse Practitioner Family
DX: N13.2 Hydronephrosis with renal and ureteral calculous obstruction (principal)
CPT/HCPCS: 36415; 76770; 80048; 81001; 83605; 85007; 85025; 87086; J1885

== ENCOUNTER 2021-05-10 12:09 | Day surgery (SDC) | payer MEDICARE, OTHER, SELFPAY ==
[2021-05-10 13:06] LABS: COVID19 -Nasal RAPID Negative (Negative)
[2021-05-10 13:49] VITALS: BMI 29.0
[2021-05-10 14:20] VITALS: BP 159/81; PULSE 81; RESP 16; TEMP 36.3; O2SAT 100
[2021-05-10] MEDS: LACTATED RINGERS 1,000 ML 42 ML IV (14:20)
--- NOTE | 2021-05-10 14:40 | P.HP_ITS ---
History of Present Illness History of Present Illness Date Patient Seen: 05/10/21 Time Patient Seen: 14:40 Chief complaint: stent placement Narrative: Goldy is an 80-year-old white male with a history of uric acid urolithiasis was experiencing his usual health until on or about 05/07/2021 when he had onset of left side abdominal and flank pain. He presented to [facility] ED where upon evaluation including CT KUB identified an obstructing 6 x 9 mm left proximal ureteral calculus. His pain was readily controlled with usual measures in the ED and he was discharged for Urology follow-up. Scheduling for follow-up visit were underway after his discharge from the ED. However he presented again on 05/09/2021 and severe left flank and abdominal pain. Again his pain was readily controlled with intravenous measures in the ED. again he was discharged to home with instruction for timely follow-up in the Urology Clinic. He passed a uric acid stone in January of this year measuring 3 mm. Urinalysis at presentation on this occasion demonstrated numerous uric acid crystals. Having seen his name a 2nd time in the workload upon arriving on campus today, I contacted him at home at approximately 7:30 a.m. and began plans for return visit for urgent add on cystoscopy and left ureteral stent placement. Patient History Medical History Adrenal nodule Allergic sinusitis Cataracts, bilateral (~1995) Chicken pox (~194) Erythropoietic hemochromatosis Essential thrombocytosis Hepatomegaly HNP (herniated nucleus pulposus), lumbar Melanoma (~1983) Postnasal drip Serous otitis media 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 disorder Surgical History History of hip replacement, total Family & Social History Family History Father History of heart disease Mother Congestive heart failure Brother Cancer Sister Congestive heart failure Social History: household members spouse Tobacco & Substance use: Smoking Status Never smoker alcohol intake current alcohol intake frequency 0-2 drinks per day Substance Use Type does not use Meds Home Medications and Allergies Home Medications Medication Instructions Recorded Confirmed Type acetaminophen [Tylenol] 325 mg DAILY PRN 04/29/19 05/10/21 History melatonin 5 mg PRN PRN 12/02/20 05/10/21 History ascorbic acid (vitamin C) 500 mg 1,000 mg PO Q3D tab 03/17/21 05/10/21 History tablet garlic 300 mg PO Q3D tab 03/17/21 05/10/21 History multivitamin 1 cap PO Q3D cap 03/17/21 05/10/21 History epoetin gene [Procrit] 30,000 unit SUBCUT 3XW 30 Days 03/24/21 05/10/21 Rx #19.5 ml epoetin gene-epbx [Retacrit] 30,000 unit SUBCUT 3XW #12 dose 04/07/21 Rx sodium bicarbonate 325 mg PO BID #100 tab 04/20/21 05/10/21 Rx tamsulosin 0.4 mg capsule 0.4 mg PO DAILY 30 Days #30 cap 05/07/21 05/10/21 Rx hydrocodone-acetaminophen 2 tab PO Q6H PRN 05/10/21 05/10/21 History ibuprofen 400 mg PO Q6H PRN 05/10/21 05/10/21 History ketorolac 10 mg PO TID PRN 5 Days #15 tab 05/10/21 05/10/21 Rx Allergies Allergy/AdvReac Type Severity Reaction Status Date / Time No Known Drug Allergies Allergy Verified 05/10/21 13:37 Review of Systems Constitutional Constitutional: Reports as per HPI Exam Vital Signs (past 8 hours): - 05/10/21 14:20 Temperature 97.3 F L Pulse Rate 81 Respiratory Rate 16 Blood Pressure 159/81 H Pulse Oximetry 100 Oxygen Delivery Method Room Air Narrative Exam Narrative: He is a well-developed mildly over nourished white male in no acute distress. Head/neck-sclera clear and pupils are round and equal bilaterally. Chest-equal, clear, and unlabored expansion bilaterally. Heart-regular rhythm and rate. No abnormal heart tones. Objective Labs Labs: Laboratory Results - last 24 hr 05/10/21 12:40 SARS-CoV-2 (PCR) Negative Assessment & Plan Assessment & Plan narrative: Impression: 1. Obstructing 6 x 9 mm left proximal ureteral calculus. 2. History of uric acid urolithiasis. 3. Intractable left renal colic. Plan: 1. Discussion, informed consent and urgent scheduling today for cystoscopy and placement left ureteral stent.
[2021-05-10] MEDS: CEFAZOLIN 1 GM VIAL 2 GM IV (15:24)
--- NOTE | 2021-05-10 15:26 | SUR.OPER ---
Lithotomy on padded OR bed, head on pillow, arms secured on padded arm boards at <90 degrees abduction. Legs secured in padded yellow fins stirrups.
[2021-05-10] MEDS: IOPAMIDOL 15 ML VIAL INJ (15:39)
--- NOTE | 2021-05-10 15:47 | P.OP_ITS ---
Operative Date/Time/Diagnoses Date of procedure: 05/10/21 Time of procedure: 15:47 Pre-op diagnosis: 1. Obstructing 6 x 9 cm left proximal ureteral calculus 2. Intractable left renal colic Post-op diagnosis: other (3. Multifocal bulbar urethral strictures 4. Multiple bladder calculi) Procedure & Clinicians Procedure: 1. Cystoscopy/dilation urethral strictures. 2. Cystoscopy/removal bladder calculi (< 2.5 cm). 3. Cystoscopy/left retrograde pyelogram. 4. Cystoscopy/left ureteral stone manipulation without removal. 5. Cystoscopy/placement left ureteral stent (7 [place] by 22-32 cm multi-length). Same procedure as scheduled: No (All above procedures incidentally required for left stent placement) Indications: 1. Obstructing 6 x 9 mm left ureteral calculus. 2. Intractable left renal colic. Surgeon: Zaid Hudson Click Yes if Unassisted: Yes Anesthesia Type: General Operative Notes Findings: 1. Urethra-penile segment normal caliber. Bulbar segment had 3 annular strictures, the narrowest measuring approximately 3 mm. 2. External sphincter-coapted with normal appearing and overlying urothelium. 3. Prostate-4 cm length with moderate trilobar hyperplasia and moderate elevated median bar. 4. Bladder-2+ trabeculation. Normal ureteral orifices bilaterally. There are innumerable small bladder stones and crystals line dependently on the bladder floor. 5. Left ureter-the mid and distal portion appeared to be somewhat medially deviated. The stone created a high-grade obstruction with associated tortuosity requiring persistent and careful manipulation of guidewire in combination with 5 [place] pollock catheter to manipulate and bypassed the stone. Closure Type: not applicable Specimen(s): other (Bladder calculi) Applied: other (7 [place] by 22-32 cm multi-length stent) Estimated Blood Loss (mL): 0 Blood products transfused: none Procedure in detail: The patient was positioned supine and was administered general anesthesia. He was then repositioned semi lithotomy and the lower abdomen, genitalia, and groin were then prepped and draped in sterile fashion. A 22 [place] panendoscope was then passed the lower urinary tract with the findings as described above. The most distal stricture could not be negotiated with the scope alone and therefore the 0.35 hybrid guidewire was advanced under direct visualization through the bulbar strictures proximally into the bladder. The 22 [place] panendoscope was then gently advanced along the wire resulting in dilation and disruption of the above-described strictures. The hybrid guidewire was then removed and the bladder was irrigated with the Ellick evacuator. The stone material was then submitted to the laboratory for crystallographic analysis. The hybrid 0.35 guidewire was then advanced of the left collecting system under direct and fluoroscopic guidance. Obstruction was met at approximately the mid ureter. A 5 [place] pollock catheter was then advanced over the guidewire near its point of obstruction. Hybrid wire was then backloaded out the [place] catheter and retrograde pyelogram was performed demonstrating tortuosity and high grade obstruction at this level. The guidewire was advanced once again through the lumen of the [place] catheter in under direct visualization and progressive advancement of the [place] the wire was successfully negotiated beyond the stone and advanced proximally with a coil within the moderately dilated renal pelvis. The [place] catheter was then backloaded off the guidewire. Next, a 7 [place] by 22-32 cm multi length stent was selected. This was advanced over the guidewire under direct and fluoroscopic guidance. A RETRIEVAL LINE WAS NOT LEFT ATTACHED. The bladder was then drained completely and all instrumentation was removed. The patient was then repositioned in supine, was awakened, and then transferred to a [facility] for transportation to the PACU. Complications: none Post-operative Condition: stable Disposition: PACU Plan for aftercare: Discharge home
[2021-05-10 16:02] VITALS: BP 110/59; PULSE 80; RESP 17; TEMP 36.9; O2SAT 96
[2021-05-10 16:07] VITALS: BP 119/64; PULSE 75; RESP 18; O2SAT 95
--- NOTE | 2021-05-10 16:11 | DI.RAD.S_ITS ---
PROCEDURE: FL PYELOGRAM RETROGRADE COMPARISON: INDICATIONS: LEFT STENT PLACEMENT/ PYLOGRAM FINDINGS: 3 images reviewed from the operative procedure, centered on the upper urinary tract. The initial view shows a guidewire extending into the collecting system of the left kidney, moderately dilated. Thereafter a double pigtail ureteral stent was placed over the guidewire, and the 3rd view shows removal of the guidewire with the upper pigtail centered in the collecting system of the left kidney. Washout of contrast from the collecting system is partially complete. IMPRESSION: Successful placement of guidewire and then double pigtail ureteral catheter on the left allowing drainage of the obstructed left urinary tract. Dictated by: Shivam Benavides M.D. on 05/11/2021 at 9:15 Approved by: Shivam Benavides M.D. on 05/11/2021 at 9:18
[2021-05-10 16:12] VITALS: BP 123/68; PULSE 74; RESP 18; O2SAT 95
[2021-05-10 16:17] VITALS: BP 135/69; PULSE 74; RESP 18; O2SAT 95
[2021-05-10 16:46] VITALS: BP 133/78; PULSE 78; RESP 16; TEMP 36.7; O2SAT 95
--- NOTE | 2021-05-10 16:53 | SUR.PHASEI ---
Pt stated he was ready to go, VSS, no nausea tolerated po flds. Stated pain was tolerable, voiding temple colored urine no clots. Left unit in stable condition.
[2021-05-17 16:48] LABS: Ca oxalate dihydrate 20 % (.); Uric Acid 80 % (.)
== END 2021-05-10 16:52 | disposition home or self-care (01) ==
PROVIDERS: PCP Nurse Practitioner Family; Referring Provider Specialist; Visit Provider Specialist
PROC: (CPT 52330; principal; 2021-05-10 15:15)
DX: N20.0 Calculus of kidney (principal); Z20.822 Contact with and (suspected) exposure to COVID-19; N21.0 Calculus in bladder; N13.2 Hydronephrosis with renal and ureteral calculous obstruction
CPT/HCPCS: 52330; 52332; 36415; 74420; 76000; 76770; 80048; 81001; 82365; 83605; 85007; 85025; 87086; 87635; 99284; J0690; J1885; J2704; J3010

== ENCOUNTER → 2021-05-12 11:00 | Outpatient (CLI) | payer MEDICARE, OTHER, SELFPAY ==
--- NOTE | 2021-05-12 11:02 | DI.MRI.S_ITS ---
PROCEDURE: MR ABDOMEN WO/W CON INDICATIONS: spleen abnormality found on CT scan follow up TECHNIQUE: Coronal HASTE, axial 2D FLASH in- and [id number]; axial breath-hold T2 FSE. Dynamic axial VIBE during the administration of contrast; post-contrast coronal VIBE or 2D FLASH with fat saturation from the hepatic dome to the iliac crests. Optional diffusion weighted imaging and ADC may be performed. COMPARISON: [facility], MR, MR ABDOMEN WO CON, 12/17/2020, 13:56. [facility], RF, FL PYELOGRAM RETROGRADE, 05/10/2021, 15:42. [facility], CT, CT ABDOMEN PELVIS W CON, 01/24/2021, 6:11. [facility], CT, CT KIDNEY URETER BLADDER (KUB), 05/07/2021, 8:55. FINDINGS: Image quality: Excellent. Lung bases: No basal pleural effusions. Heart size is normal. Solid organs: Liver is normal in size. No focal lesion. Liver demonstrates diffuse T2 hypointense signal. There is increased signal within the liver on the opposed phase images (opposite of hepatic steatosis). Gallbladder demonstrates multiple gallstones. Biliary system is non dilated. Pancreas is normal in morphology. Increased conspicuity of the pancreas on the opposed phase images is likely due to german ink artifact. Spleen measures 19 cm in length. Superior spleen lesion measuring 0.8 cm, (3/29); and inferior subcapsular lesion measures 1.4 cm, (3/18). These lesions demonstrate homogeneous T2 hyperintense signal and no enhancement. Right adrenal nodule measuring 1.3 cm, (17/50), not significantly changed since 12/04/2020. No left adrenal nodule. The significant signal dropout. Both kidneys demonstrate normal size and enhancement. No solid mass. Small T2 hyperintense benign cyst in left kidney. Resolved left kidney hydronephrosis. There is enhancement and trace periureteral fluid about the left mid ureter. Suspect air-fluid level in the proximal left ureter. Recent left ureteral stent. A stent is not appreciated. Nodes and vessels: Shotty mesenteric lymph nodes. Aorta and inferior vena cava are normal in size. Bowel and peritoneum: Unenhanced bowel loops are normal in caliber. No free fluid. Bones and soft tissues: No ventral hernias. Bone marrow is normal in overall signal. IMPRESSION: 1. Similar splenomegaly. Small T2 hyperintense lesions x2. This could be small cysts, sequelae of prior infarcts, hemangioma. No suspicious restricted diffusion or internal enhancement to suggest aggressive lesion. 2. Diffuse T2 hypointense signal in the liver. Findings most compatible with iron deposition. 3. Resolved left hydronephrosis. Recent instrumentation. Suspect trace gas within the left ureter. Alternately, this could be due to susceptibility artifact from a ureteral stent which is not well evaluated on MRI. The left ureter demonstrates mild thickening and surrounding enhancement. 4. Shotty mesenteric lymph nodes. 5. Right adrenal nodule measuring 1.3 cm is similar to November 2020 is indeterminate. Suspect lipid poor adenoma. -Recommend attention on follow-up scans. 6. Cholelithiasis. Dictated by: Mathew Walsh M.D. on 05/12/2021 at 12:23 Approved by: Mathew Walsh M.D. on 05/12/2021 at 12:51
== END ==
PROVIDERS: PCP Nurse Practitioner Family; Referring Provider Nurse Practitioner Family; Visit Provider Nurse Practitioner Family
DX: R16.1 Splenomegaly, not elsewhere classified (principal); E27.9 Disorder of adrenal gland, unspecified; K80.20 Calculus of gallbladder without cholecystitis without obstruction
CPT/HCPCS: 74183

== ENCOUNTER 2021-05-17 07:47 | Day surgery (SDC) | payer MEDICARE, OTHER, SELFPAY ==
[2021-05-13 10:36] VITALS: BMI 29.8
--- NOTE | 2021-05-17 | DI.RAD.S_ITS ---
PROCEDURE: FL PYELOGRAM RETROGRADE COMPARISON: [facility], RF, FL PYELOGRAM RETROGRADE, 05/10/2021, 15:42. [facility], CT, CT KIDNEY URETER BLADDER (KUB), 05/07/2021, 8:55. [facility], US, US RENAL COMPLETE, 05/10/2021, 2:08. [facility], MR, MR ABDOMEN WO/W CON, 05/12/2021, 11:11. INDICATIONS: RETROPYELOGRAM FINDINGS: 2 fluoroscopy images were obtained demonstrating cannulization of the left ureter. There is a catheter in the left renal pelvis. Moderate hydronephrosis is present. A urinary stone is not identified. A ureteral stent is present. IMPRESSION: Moderate hydronephrosis. There is a left ureteral stent. Please correlate with intraoperative findings. Dictated by: Paz Rossi M.D. on 05/18/2021 at 9:33 Approved by: Paz Rossi M.D. on 05/18/2021 at 9:38
[2021-05-17 08:27] LABS: COVID19 -Nasal RAPID Negative (Negative)
[2021-05-17 08:55] VITALS: BP 127/78; PULSE 87; RESP 14; TEMP 36.5; O2SAT 98; BMI 29.0
[2021-05-17 09:55] LABS: Hematocrit 24.9 % (41-53); Hemoglobin 8.1 g/dL (13.5-17.5); Mean Corpuscular HGB Conc 32.7 % (30-36); Mean Corpuscular Hemoglobin 36.3 PG (26-34); Platelet Count 85 X10^3/uL (150-400); Red Blood Cell Count 2.24 X10^6/uL (4.5-5.9); Red Cell Distribution Width 36.7 % (11.6-14.8); White Blood Cell Count 8.1 X10^3/uL (4.5-11.0)
--- NOTE | 2021-05-17 12:31 | PM.PREOP ---
Pre-operative Note Interval Note History & Physical reviewed/Exam performed by Physician: Yes Changes to H&P: No
[2021-05-17] MEDS: CEFAZOLIN 1 GM VIAL 2 GM IV (14:30)
--- NOTE | 2021-05-17 14:41 | SUR.OPER ---
Lithotomy on padded OR bed, head on pillow, arms secured on padded arm boards at <90 degrees abduction. Legs secured in padded yellow fins stirrups.
[2021-05-17] MEDS: IOPAMIDOL 15 ML VIAL INJ (14:58)
[2021-05-17] MEDS: LACTATED RINGERS 1,000 ML 42 ML IV (15:25)
[2021-05-17 15:41] VITALS: BP 138/76; PULSE 71; RESP 13; TEMP 36.2; O2SAT 93
--- NOTE | 2021-05-17 15:43 | P.OP_ITS ---
Operative Date/Time/Diagnoses Date of procedure: 05/17/21 Time of procedure: 15:43 Pre-op diagnosis: 1. History of obstructing 8 mm left proximal ureteral calculus 2. Retained left ureteral stent Post-op diagnosis: same Procedure & Clinicians Procedure: 1. Cystoscopy/left intrarenal ureteroscopic laser lithotripsy. 2. Cystoscopy/left retrograde pyelogram. 3. Cystoscopy/left ureteral stent exchange (new stent-6 Ecuadorean by 22-32 cm multi-length). Same procedure as scheduled: Yes Indications: 1. History of 8 mm obstructing left proximal ureteral calculus. 2. Retained left ureteral stent. 3. History of intractable left renal colic. Surgeon: Zaid Hudson Click Yes if Unassisted: Yes Anesthesia Type: General Operative Notes Findings: 1. Urethra-recently dilated/disrupted bulbar urethral stricture x2. 2. External sphincter-coapted. 3. Prostate-4+ cm length with moderate trilobar hyperplasia. 4. Bladder-1 to 2+ trabeculation. Left indwelling stent with mild periureteral edema and erythema. 5. Left ureter-no stone visualized. Mild irritation and erosions related to recent indwelling stent. 6. Left kidney a 4 mm stone was located in a left posterior and inferior calyx. A more solid and cohesive 8 mm calculus was identified in the most dependent portion of left lower pole. Both stones were laser fragmented. Closure Type: not applicable Specimen(s): none sent Applied: other (#6F, 22 to 32 cm multi-length left ureteral stent.) Estimated Blood Loss (mL): 2 Blood products transfused: none Procedure in detail: Patient was positioned supine and administered general anesthesia. He was then repositioned semi lithotomy the lower abdomen, genitalia, and groin were prepped and draped in sterile fashion. Twenty-two Ecuadorean panendoscope was then passed lower urinary tract with findings as described above. The alligator foreign body graspers were then utilized to engage the distal end of the left ureteral stent. The panendoscope in stent were then carefully withdrawn bringing the stent just beyond the urethral meatus. A 0.35 hybrid guidewire was then advanced to the lumen of indwelling stent and advanced proximally under direct and fluoroscopic guidance. Next a semi rigid ureteral scope was prepared and passed lower urinary tract and then advanced proximally in the left ureter under direct visualization. No stone was identified throughout its course. A 2nd wire was then advanced th rough the semi-rigid ureteral scope in the summer rigid ureteral scope was then backloaded off the 2nd 0.35 hybrid wire. Now the flexible ureteral scope was prepared and this was advanced over the most recently placed wire under direct and fluoroscopic guidance. The wire was then removed. The safety wire placed it being the case remained in place and was secured to the drape. Retrograde pyelogram was performed delineating the contours and anatomy of the left intrarenal collecting system. A careful meticulous search was then undertaken to identified the calculi as described in the findings above. The 200 micron laser fiber was prepared. All operating room personnel and patient were fitted with laser safety eyewear. A small the 2 stones was then localized and laser lithotripsy was performed with the stone fragmented readily. Next, attention was turned to the larger and cyst or solid calculus located in the inferior pole collecting system. Laser lithotripsy was then commenced with resultant excellent fragmentation. Flexible ureteral scope was then removed. The safety wire was then backloaded into the panendoscope. Over this a 6 Ecuadorean by 22-32 cm multi-length stent was then advanced over the wire and positioned in the left collecting system under direct and fluoroscopic guidance. A RETRIEVAL LINE WAS LEFT ATTACHED. The patient was then repositioned supine, was awakened, and transferred to a reaston for transportation to the PACU. Complications: none Post-operative Condition: stable Disposition: PACU Plan for aftercare: Discharge home.
[2021-05-17 15:46] VITALS: BP 139/77; PULSE 78; RESP 18; O2SAT 93
[2021-05-17 15:51] VITALS: BP 124/75; PULSE 74; RESP 17; O2SAT 93
[2021-05-17] MEDS: FUROSEMIDE 20 MG/2 ML VIAL IV (15:59)
[2021-05-17 16:00] VITALS: BP 130/66; PULSE 79; RESP 13; O2SAT 97
--- NOTE | 2021-05-17 16:38 | SUR.PHASEII ---
Pt placed on right side and given lasix per md order. Pt ambulatory to bathroom with no assist needed. Pt able to void into strainer and no stones noted. Pt given strainers to go home with to catch stones if seen.
[2021-05-17 16:51] VITALS: BP 155/67; PULSE 70; RESP 13; TEMP 36.2; O2SAT 96
--- NOTE | 2021-05-17 16:52 | SUR.PHASEII ---
IV site to stay intact okay'ed by Stormy nurse vascular manager.
--- NOTE | 2021-05-17 17:08 | SUR.PHASEII ---
Pt educated on care of iv care and maintenance. Made aware of signs and symptoms of infection or if IV site becomes displaced. Pt states appropriate level of comprehension.
[2021-05-17] MEDS: OXYCODONE IR 5 MG TABLET PO (17:12)
--- NOTE | 2021-05-17 17:18 | SUR.PHASEII ---
PO Rx given at patient request with snack and juice. Voice appreciation for care. No questions.
== END 2021-05-17 17:14 | disposition home or self-care (01) ==
PROVIDERS: PCP Nurse Practitioner Family; Referring Provider Specialist; Visit Provider Specialist
PROC: (CPT 52356; principal; 2021-05-17 08:45)
DX: N20.0 Calculus of kidney (principal); Z87.442 Personal history of urinary calculi
CPT/HCPCS: 52356; 74420; 76000; 85027; 86850; 86900; 86901; 87635; J0690; J1100; J1940; J2405; J2704; J3010

== ENCOUNTER 2021-06-10 15:04 | Emergency (ER) | payer MEDICARE, OTHER, SELFPAY ==
[2021-06-10 15:10] VITALS: BP 146/73; PULSE 82; RESP 20; TEMP 36.7; O2SAT 97; BMI 28.2
--- NOTE | 2021-06-10 15:17 | ED.GENADULT ---
HPI - General Adult General Chief complaint: Recheck/Abnormal Lab/Rx Stated complaint: IVIG Time Seen by Provider: 06/10/21 15:06 History of Present Illness HPI narrative: Patient is a 80-year-old male. He did receive the Maxwell & Maxwell vaccine approximately 4 months ago. About 3 months ago he started having lower extremity weakness and fasciculations. 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 He thought that he had symptoms very similar to this so he went to his primary doctor. Had labs performed and has also been seen by Neurology. 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 It was recommended that he start a course of IVIG. His primary doctor's office was having difficulty establishing him with infusions of the IVIG in the infusion clinic. The seem to be secondary to both administrative issues and also issues with approval with insurance so he was instructed to come to the emergency department for evaluation. Related Data Home Medications Medication Instructions Recorded Confirmed acetaminophen 325 mg tablet 325 mg DAILY PRN 04/29/19 06/08/21 (Tylenol) ascorbic acid (vitamin C) 500 mg 1,000 mg PO Q3D tab 03/17/21 06/08/21 tablet (Vitamin C) garlic 300 mg PO Q3D tab 03/17/21 06/08/21 multivitamin 1 cap PO Q3D cap 03/17/21 06/08/21 deferasirox 500 mg dispersible 1,000 mg PO DAILY 06/08/21 06/08/21 tablet Previous Rx's Medication Instructions Recorded epoetin gene-epbx 40,000 unit/mL 30,000 unit SUBCUT 3XW #12 dose 04/07/21 injection solution (Retacrit) oxycodone 5 mg tablet 5 mg PO Q4H PRN #14 tab 05/17/21 tamsulosin 0.4 mg capsule (Flomax) 0.4 mg PO DAILY #90 cap 05/26/21 sodium bicarbonate 650 mg tablet 325 mg PO BID #90 tab 06/02/21 Allergies Allergy/AdvReac Type Severity Reaction Status Date / Time No Known Drug Allergies Allergy Verified 06/10/21 15:22 Review of Systems Constitutional Constitutional: Denies fever(s) Cardiovascular Cardiovascular: Denies chest pain and Denies dyspnea Respiratory Respiratory: Denies dyspnea Gastrointestinal Gastrointestinal: Reports system reviewed and no additional complaints, except as documented Musculoskeletal Musculoskeletal: Reports system reviewed and no additional complaints, except as documented Integumentary/Breasts Skin/Breast: Reports system reviewed and no additional complaints, except as documented Neurologic Neurologic: Reports as per HPI Hematologic/Lymphatic On Anticoagulants: No Allergic/Immunologic Allergic/Immunologic: Reports system reviewed and no additional complaints, except as documented Patient History Medical History Adrenal nodule Allergic sinusitis Cataracts, bilateral (~1995) Chicken pox (~1943) Erythropoietic hemochromatosis Essential thrombocytosis Hepatomegaly HNP (herniated nucleus pulposus), lumbar Melanoma (~1983) Postnasal drip Serous otitis media 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) Uric acid nephrolithiasis Vision disorder Surgical History History of hip replacement, total Hx of cystoscopy (05/10/21) Family History Father History of heart disease Mother Congestive heart failure Brother Cancer Sister Congestive heart failure Social History household members: spouse Smoking Status: Never smoker second hand exposure: No alcohol intake: current substance use type: does not use 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 Status: Never smoker alcohol intake frequency: 0-2 drinks per day Alcohol type: wine Substance Use Type: does not use Exam Initial Vital Signs Initial Vital Signs: Vital Signs Temperature 98.1 F 06/10/21 15:10 Pulse Rate 82 06/10/21 15:10 Respiratory Rate 20 06/10/21 15:10 Blood Pressure 146/73 H 06/10/21 15:10 Pulse Oximetry 97 06/10/21 15:10 Const General: cooperative and comfortable HENMT Head: normal to inspection and normocephalic Eyes General: appearance normal, both eyes and all related structures Resp Effort & Inspection: normal respiratory effort and not tachypneic Auscultation: clear to auscultation bilaterally Cardio Rate: regular rate Rhythm: regular rhythm GI Inspection: normal to inspection Palpation: soft and No tender Skin General: no rashes or lesions noted Neuro General: patient alert, patient awake and patient oriented x3 Other: 5/5 strength bilateral upper extremities. 3/5 strength bilateral lower extremities. Patient has 0/5 patella and Achilles reflexes bilateral. Has 1/5 biceps reflexes upper extremities. Extrem General: normal to inspection and capillary refill normal Psych Appearance: grossly normal and well kempt Course Orders Ordered: Immune Globulin 40 gm/ (Miscellaneous) 400 mls @ 0 mls/hr IV 1600 JORGE Stop: 06/10/21 19:00 Last Infusion: 06/10/21 17:44 Dose: 232 mls/hr Documented by: Infusion: 06/10/21 17:10 Dose: 116 mls/hr Documented by: Admin: 06/10/21 16:39 Dose: 58 mls/hr Documented by: ALMITA Discontinued Medications Immune Globulin 40 gm/ (Miscellaneous) 400 mls @ 0 mls/hr IV NOW ONE Stop: 06/10/21 15:23 Last Admin: 06/10/21 16:39 Dose: Not Given Documented by: ALMITA Vital Signs Vital signs: Vital Signs - 8 hr 06/10/21 15:10 06/10/21 16:38 06/10/21 17:00 Temperature 98.1 F 98.7 F Pulse Rate 82 75 72 Respiratory Rate 20 Blood Pressure 146/73 H 129/67 125/65 Pulse Oximetry 97 97 97 Medical Decision Making Medical Records Medical records reviewed: Yes I reviewed the patient's medical records. [facility] Narrative Medical decision making narrative: I did discuss the case with Dr. 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 The patient does have 0 reflexes in his lower extremities. His strength is less than his lower extremities and is equal bilateral. He has no respiratory issues. No chest pain. Recommendation is 4.4 grams/kilogram of IVIG on a daily basis for the next 5 days. Patient will be given 40 g of IVIG today. He was also instructed that he is going to need to either return to the emergency department every day for the next 4 days or will need to have something set up in the infusion clinic to have his course completed. He expressed understanding of this. While patient was in the emergency department it was set up for the patient to have his infusion done tomorrow in the acute care setting. This was set up by his primary care doctor's office. He was informed of this and will check in tomorrow at the hospital main desk. 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 Syndrome Activity Restrictions/Additional Instructions: You were given your 1st dose of IVIG today. You need 4 further days of IVIG for the complete treatment. It was set up by your primary doctor's office for you to receive this tomorrow through the infusion clinic. At 1145 tomorrow morning your to check in at the main desk at the hospital for your treatment. Return to the emergency department for any new or worsening symptoms Prescriptions: No Action multivitamin Capsule 1 cap PO Q3D RF: 0 garlic Tablet 300 mg PO Q3D RF: 0 oxycodone 5 mg tablet 5 mg PO Q4H PRN (Reason: pain) Qty: 14 RF: 0 acetaminophen [Tylenol] 325 mg Tablet 325 mg DAILY PRN (Reason: Pain (Scale Score 1-3)) RF: 0 Retacrit 40,000 unit/mL Solution 30,000 unit SUBCUT 3XW Qty: 12 RF: 5 deferasirox 500 mg Tablet, Dispersible 1,000 mg PO DAILY RF: 0 ascorbic acid (vitamin C) [Vitamin C] 500 mg tablet 1,000 mg PO Q3D RF: 0 tamsulosin [Flomax] 0.4 mg capsule 0.4 mg PO DAILY Qty: 90 RF: 0 sodium bicarbonate 650 mg tablet 325 mg PO BID Qty: 90 RF: 3 Referrals: Aki Wright ARNP [Primary Care Provider] -
[2021-06-10 16:38] VITALS: BP 129/67; PULSE 75; TEMP 37.1; O2SAT 97
[2021-06-10] MEDS: IMMUNE GLOBULIN (IVIG) 40 GM in ISOOSMOTIC VEHICLE 0 ML 58 ML IV (16:39)
[2021-06-10 17:00] VITALS: BP 125/65; PULSE 72; O2SAT 97
[2021-06-10 17:30] VITALS: BP 106/56; PULSE 77; O2SAT 97
[2021-06-10 18:00] VITALS: BP 126/67; PULSE 69; O2SAT 97
[2021-06-10 18:30] VITALS: BP 138/61; PULSE 71; O2SAT 98
== END 2021-06-10 18:56 | disposition home or self-care (01) ==
PROVIDERS: Emergency Provider Emergency Medicine; PCP Nurse Practitioner Family
DX: G61.0 Guillain-Barre syndrome (principal)
CPT/HCPCS: 96365; 96366; 99283; 99284; J1561

== ENCOUNTER 2021-06-11 13:13 | Emergency (ER) | payer MEDICARE, OTHER, SELFPAY ==
[2021-06-11] VITALS (11 sets, daily range): BP systolic 113–141; BP diastolic 60–69; PULSE 63–68; RESP 11–20; TEMP 36.6–36.8; O2SAT 95–99; BMI 28.2
--- NOTE | 2021-06-11 13:52 | ED_ITS ---
HPI - Medical Clearance General Chief complaint: Medical Clearance Stated complaint: Needs Infusion Time Seen by Provider: 06/11/21 13:14 Source: patient Mode of arrival: Wheelchair History of Present Illness HPI Narrative: Patient is an 80-year-old male with a diagnosis of Guillain-[place] made by his neurologist who was seen in the emergency department yesterday and received his 1st dose of IVIG. It was set up by his primary doctor's office to receive a 2nd dose of IVIG today to the infusion clinic however when he arrived for this there was issues about insurance approval and so he was denied so he returns to the emergency department to have his 2nd dose given. No issues with the 1st dose. No changes neurologic status. Related Information Home Medications Medication Instructions Recorded Confirmed acetaminophen 325 mg tablet 325 mg DAILY PRN 04/29/19 06/08/21 (Tylenol) ascorbic acid (vitamin C) 500 mg 1,000 mg PO Q3D tab 03/17/21 06/08/21 tablet (Vitamin C) garlic 300 mg PO Q3D tab 03/17/21 06/08/21 multivitamin 1 cap PO Q3D cap 03/17/21 06/08/21 deferasirox 500 mg dispersible 1,000 mg PO DAILY 06/08/21 06/08/21 tablet Previous Rx's Medication Instructions Recorded epoetin gene-epbx 40,000 unit/mL 30,000 unit SUBCUT 3XW #12 dose 04/07/21 injection solution (Retacrit) oxycodone 5 mg tablet 5 mg PO Q4H PRN #14 tab 05/17/21 tamsulosin 0.4 mg capsule (Flomax) 0.4 mg PO DAILY #90 cap 05/26/21 sodium bicarbonate 650 mg tablet 325 mg PO BID #90 tab 06/02/21 Allergies Allergy/AdvReac Type Severity Reaction Status Date / Time No Known Drug Allergies Allergy Verified 06/10/21 15:22 Review of Systems Constitutional Constitutional: Reports system reviewed and no additional complaints, except as documented Cardiovascular Cardiovascular: Reports system reviewed and no additional complaints, except as documented Respiratory Respiratory: Reports system reviewed and no additional complaints, except as documented Gastrointestinal Gastrointestinal: Reports system reviewed and no additional complaints, except as documented Neurologic Neurologic: Reports system reviewed and no additional complaints, except as documented Patient History Medical History Adrenal nodule Allergic sinusitis Cataracts, bilateral (~1995) Chicken pox (~1943) Erythropoietic hemochromatosis Essential thrombocytosis Hepatomegaly HNP (herniated nucleus pulposus), lumbar Melanoma (~1983) Postnasal drip Serous otitis media 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) Uric acid nephrolithiasis Vision disorder Surgical History History of hip replacement, total Hx of cystoscopy (05/10/21) Family History Father History of heart disease Mother Congestive heart failure Brother Cancer Sister Congestive heart failure Social History household members: spouse Smoking Status: Never smoker second hand exposure: No alcohol intake: current substance use type: does not use 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 Status: Never smoker alcohol intake frequency: 0-2 drinks per day Alcohol type: wine Substance Use Type: does not use Exam Initial Vital Signs Initial Vital Signs: Vital Signs Temperature 97.9 F 06/11/21 13:20 Pulse Rate 67 06/11/21 13:20 Respiratory Rate 18 06/11/21 13:20 Blood Pressure 136/66 06/11/21 13:20 Pulse Oximetry 99 06/11/21 13:20 Const General: cooperative, healthy appearing and comfortable HENMT Head: normal to inspection and normocephalic Resp Effort & Inspection: normal respiratory effort Cardio Rate: regular rate Skin General: no rashes or lesions noted Neuro General: patient alert, patient awake and patient oriented x3 MDM - Medical Clearance MDM Narrative Medical decision making narrative: Patient will receive his 2nd of 5 doses of 40 g of IVIG. Patient received his 2nd of 5 doses of IVIG without incident. I did discuss the case with the nurse of his primary provider. Our hospital is out of IVIG and we were unable to obtain more of it for his 3rd through 5th dose is required over the next 3 days. His primary doctor's nurse attempted to get him established as infusion at the infusion clinic at [facility] however we were unable to do so because they are not open over the weekend. Pharmacy at our facility did confirm that the pharmacy at [facility] does have IVIG available. I did discuss the case with the charge nurse at the [facility] Emergency Department explaining the situation. The plan will be is the patient will present to [facility] Emergency Department between 8 and 0900 hours in the morning tomorrow to receive his medications. He expressed understanding and agreement this plan. 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 They recommend that you show up between 8 and 9 in the morning. Return to the emergency department for any new or worsening symptoms. Prescriptions: No Action multivitamin Capsule 1 cap PO Q3D RF: 0 garlic Tablet 300 mg PO Q3D RF: 0 oxycodone 5 mg tablet 5 mg PO Q4H PRN (Reason: pain) Qty: 14 RF: 0 acetaminophen [Tylenol] 325 mg Tablet 325 mg DAILY PRN (Reason: Pain (Scale Score 1-3)) RF: 0 Retacrit 40,000 unit/mL Solution 30,000 unit SUBCUT 3XW Qty: 12 RF: 5 deferasirox 500 mg Tablet, Dispersible 1,000 mg PO DAILY RF: 0 ascorbic acid (vitamin C) [Vitamin C] 500 mg tablet 1,000 mg PO Q3D RF: 0 tamsulosin [Flomax] 0.4 mg capsule 0.4 mg PO DAILY Qty: 90 RF: 0 sodium bicarbonate 650 mg tablet 325 mg PO BID Qty: 90 RF: 3 Referrals: Aki Wright ARNP [Primary Care Provider] -
[2021-06-11] MEDS: IMMUNE GLOBULIN (IVIG) 40 GM in ISOOSMOTIC VEHICLE 0 ML 58.2 ML IV (13:54)
== END 2021-06-11 16:42 | disposition home or self-care (01) ==
PROVIDERS: Emergency Provider Emergency Medicine; PCP Nurse Practitioner Family
DX: G61.0 Guillain-Barre syndrome (principal); D69.6 Thrombocytopenia, unspecified; D46.9 Myelodysplastic syndrome, unspecified
CPT/HCPCS: 96365; 96366; 99281; 99283; J1561

== ENCOUNTER → 2021-07-12 12:37 | Outpatient (CLI) | payer MEDICARE, OTHER, SELFPAY ==
[2021-07-12 12:55] LABS: Hematocrit 29.3 % (41-53); Mean Corpuscular HGB Conc 34.1 % (30-36); Mean Corpuscular Hemoglobin 41.2 PG (26-34); Mean Corpuscular Volume 120.7 fL (80-100); Platelet Count 110 X10^3/uL (150-400); Red Blood Cell Count 2.43 X10^6/uL (4.5-5.9); Red Cell Distribution Width 28.9 % (11.6-14.8); White Blood Cell Count 7.9 X10^3/uL (4.5-11.0)
[2021-07-12 12:56] LABS: Add Manual Diff / Slide Review YES
[2021-07-12 13:35] LABS: Neutrophils Absolute Manual 2765 /uL (3000-5900); Nucleated Red Blood Cells 3 #/Diff; Total Cells Counted 100
[2021-07-12 13:36] LABS: Anisocytosis 3+; Macrocytosis 3+; Platelet Estimate Decreased on smear; Poikilocytosis 1+
[2021-07-12 13:37] LABS: Hypochromasia 1+; Ovalocytes 1+; RBC Morphology See
== END ==
PROVIDERS: PCP Family Medicine; Referring Provider Internal Medicine Medical Oncology; Visit Provider Internal Medicine Medical Oncology
DX: D47.3 Essential (hemorrhagic) thrombocythemia (principal)
CPT/HCPCS: 36415; 85007; 85025

== ENCOUNTER 2021-07-12 15:22 | Observation (INO) | payer MEDICARE, OTHER, SELFPAY ==
[2021-07-12] VITALS (17 sets, daily range): BP systolic 109–133; BP diastolic 60–76; PULSE 63–94; RESP 12–24; TEMP 36.2–36.9; O2SAT 94–99; BMI 29.0
--- NOTE | 2021-07-12 15:31 | DI.RAD.S_ITS ---
PROCEDURE: XR CHEST 1V INDICATIONS: chest pain TECHNIQUE: One view of the chest was acquired. COMPARISON: [facility], CR, XR CHEST 1V, 01/24/2021, 7:25. FINDINGS: Surgical changes and devices: None. Lungs and pleura: Lungs are clear. No pleural effusions or pneumothorax. Mediastinum: Mediastinal contours appear normal. Heart size is mildly enlarged. Bones and chest wall: No suspicious bony lesions. Overlying soft tissues appear unremarkable. IMPRESSION: No acute cardiopulmonary pathology. Dictated by: William Mensah M.D. on 07/12/2021 at 16:13 Approved by: William Mensah M.D. on 07/12/2021 at 16:14
--- NOTE | 2021-07-12 16:00 | ED_ITS ---
HPI - General Adult General Chief complaint: Shortness of Breath/Dyspnea Stated complaint: SOB Time Seen by Provider: 07/12/21 15:55 Source: patient Mode of arrival: Ambulatory History of Present Illness HPI narrative: Patient is an 81-year-old male. History of myelodysplastic syndrome being followed by oncology for this. Had labs drawn this morning for evaluation of his thrombocytopenia and anemia. Returning home he was sitting on the couch and got up to go to the computer to check his lab results when he developed shortness of breath and right-sided chest discomfort he has been having shortness of breath with exertion off and on for the past several days/weeks but today it lasted longer than normal and he is never had right-si ded chest discomfort with that. The time of evaluation he was no longer having chest discomfort but was having some shortness of breath. 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 Related Data Home Medications Medication Instructions Recorded Confirmed acetaminophen 325 mg tablet 325 mg DAILY PRN 04/29/19 07/09/21 (Tylenol) ascorbic acid (vitamin C) 500 mg 1,000 mg PO Q3D tab 03/17/21 07/09/21 tablet (Vitamin C) garlic 300 mg PO Q3D tab 03/17/21 07/09/21 multivitamin 1 cap PO Q3D cap 03/17/21 07/09/21 deferasirox 500 mg dispersible 1,000 mg PO DAILY 06/08/21 07/09/21 tablet luspatercept-aamt 75 mg 75 mg SUBCUT Q3W 07/08/21 07/12/21 subcutaneous solution (Reblozyl) Previous Rx's Medication Instructions Recorded epoetin gene-epbx 40,000 unit/mL 30,000 unit SUBCUT 3XW #12 dose 04/07/21 injection solution (Retacrit) tamsulosin 0.4 mg capsule (Flomax) 0.4 mg PO DAILY #90 cap 05/26/21 sodium bicarbonate 650 mg tablet 325 mg PO BID #90 tab 06/02/21 Allergies Allergy/AdvReac Type Severity Reaction Status Date / Time No Known Drug Allergies Allergy Verified 07/12/21 15:29 Review of Systems Constitutional Comments: No fevers Cardiovascular Cardiovascular: Reports as per HPI Respiratory Respiratory: Reports as per HPI Gastrointestinal Gastrointestinal: Reports system reviewed and no additional complaints, except as documented Integumentary/Breasts Skin/Breast: Reports system reviewed and no additional complaints, except as documented Neurologic Neurologic: Reports system reviewed and no additional complaints, except as documented Hematologic/Lymphatic On Anticoagulants: No Allergic/Immunologic Allergic/Immunologic: Reports system reviewed and no additional complaints, except as documented Patient History Medical History Adrenal nodule (11/2020) Allergic sinusitis Cataracts, bilateral (~1995) Chicken pox (~194) Erythropoietic hemochromatosis Essential thrombocytosis Hepatomegaly HNP (herniated nucleus pulposus), lumbar Melanoma (~1983) Postnasal drip Serous otitis media 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) 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) Vision disorder Surgical History History of hip replacement, total Hx of cystoscopy (05/10/21) Family History Father History of heart disease Mother Congestive heart failure Brother Cancer Sister Congestive heart failure Social History household members: spouse Smoking Status: Never smoker second hand exposure: No alcohol intake: current substance use type: does not use 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 Status: Never smoker alcohol intake frequency: 0-2 drinks per day Alcohol type: wine Substance Use Type: does not use Exam Initial Vital Signs Initial Vital Signs: Vital Signs Temperature 98.5 F 07/12/21 15:27 Pulse Rate 94 H 07/12/21 15:27 Respiratory Rate 18 07/12/21 15:27 Blood Pressure 124/71 07/12/21 15:27 Pulse Oximetry 99 07/12/21 15:27 Const General: cooperative and healthy appearing [facility] Head: normal to inspection Eyes General: appearance normal, both eyes and all related structures Resp Effort & Inspection: normal respiratory effort Auscultation: clear to auscultation bilaterally Cardio Rate: regular rate Rhythm: regular rhythm GI Inspection: normal to inspection Palpation: soft Skin General: no rashes or lesions noted Neuro General: patient alert, patient awake, patient oriented x3 and moves all extremities Extrem General: normal to inspection and capillary refill normal Psych Appearance: grossly normal and well kempt Scores GCS [place] coma scale eye opening: Spontaneous Vini coma scale verbal response: Orientated Vini coma scale motor response: Obey commands [place] coma scale total score: 15 Course Orders Ordered: ED Orders 07/12/21 15:31 XR chest 1V Stat EKG-12 Lead Stat 07/12/21 15:53 BNP [NT-proBNP (BNP-Adult 18+)] Stat Complete Blood Count AUTO DIFF Stat Comprehensive Metabolic Panel Stat Lipase Stat Magnesium Stat Troponin & CK Cardiac Panel Stat 07/12/21 18:12 Troponin & CK Cardiac Panel Stat Vital Signs Vital signs: Vital Signs - 8 hr 07/12/21 15:27 Temperature 98.5 F Pulse Rate 94 H Respiratory Rate 18 Blood Pressure 124/71 Pulse Oximetry 99 Medical Decision Making Medical Records Medical records reviewed: Yes I reviewed the patient's medical records. Lab Data Lab results reviewed: Yes I reviewed the patient's lab results. Result diagrams: 07/12/21 15:53 07/12/21 15:53 Labs: Lab Results 07/12/21 07/12/21 07/12/21 Range/Units 15:53 15:53 18:12 WBC 6.9 (4.5-11.0) X10^3/uL RBC 2.35 L (4.5-5.9) X10^6/uL Hgb 9.5 L (13.5-17.5) g/dL Hct 28.2 L (41-53) % MCV 119.7 H (80-100) fL MCH 40.4 H (26-34) PG MCHC 33.8 (30-36) % RDW 28.2 H (11.6-14.8) % Plt Count 99 L (150-400) X10^3/uL Neut % (Auto) 45.1 L (50-75) % Lymph % (Auto) 21.0 L (25-40) % [place] % (Auto) 30.9 H (3-14) % Eos % (Auto) 0.3 L (2-4) % Baso % (Auto) 2.7 H (0-2) % Neut # (Auto) 3100 (8440-3920) /uL Lymph # (Auto) 1500 (1657-2149) /uL [place] # (Auto) 2100 H (0-900) /uL Eos # (Auto) 0 (0-450) /uL Baso # (Auto) 200 H (0-100) /uL Platelet Estimate Decreased on smear RBC Morphology Not Reportable Hypochromasia 1+ H Poikilocytosis 1+ H Anisocytosis 3+ H Macrocytosis 3+ H Ovalocytes 1+ H Sodium 136 L (137-145) mmol/L Potassium 4.3 (3.4-5.1) mmol/L Chloride 105 (98-107) mmol/L Carbon Dioxide 25 (22-32) mmol/L BUN 14 (9-20) mg/dL Creatinine 0.75 (0.66-1.25) mg/dL Estimated GFR > 60.0 (>60) mL/min BUN/Creatinine Ratio 18.7 (6-22) Glucose 118 H (80-110) mg/dL Calcium 8.7 (8.4-10.2) mg/dL Magnesium 1.9 (1.6-2.3) mg/dL Total Bilirubin 0.6 (0.2-1.3) mg/dL AST 84 H (17-59) IU/L ALT 98 H (<50) IU/L Alkaline Phosphatase 56 (38-126) U/L Total Creatine Kinase 26 L 20 L (55-170) U/L CK-MB (CK-2) TNP TNP CK-MB (CK-2) Rel Index TNP TNP Troponin I 0.058 H 0.063 H (0.01-0.034) ng/mL NT-Pro-B Natriuret Pep 304 (<450) pg/mL Total Protein 7.5 (6.3-8.2) g/dL Albumin 3.7 (3.5-5.0) g/dL Globulin 3.8 (1.7-4.1) g/dL Albumin/Globulin Ratio 1.0 (1.0-2.8) Lipase 75 (23-300) U/L Imaging Data Chest x-ray: Radiologist's Impression: [address] [id number] ReportSigned Patient: Goldy Arechiga [facility]#: [id number]: 9Acct:[id number]/Sex: 81 / MDate of Service: 07/12/21Loc: EDAccession Number: [id number] Procedure: XR chest 1V Ordering Provider: Darren Little D.O. PROCEDURE: XR CHEST 1V INDICATIONS: chest pain TECHNIQUE: One view of the chest was acquired. COMPARISON: [facility], CR, XR CHEST 1V, 01/24/2021, 7:25. FINDINGS: Surgical changes and devices: None. Lungs and pleura: Lungs are clear. No pleural effusions or pneumothorax. Mediastinum: Mediastinal contours appear normal. Heart size is mildly enlarged. Bones and chest wall: No suspicious bony lesions. Overlying soft tissues appea r unremarkable. IMPRESSION: No acute cardiopulmonary pathology. Dictated by: William Mensah M.D. on 07/12/2021 at 16:13 Approved by: William Mensah M.D. on 07/12/2021 at 16:14 ECG Data Attestation: I personally reviewed and interpreted this ECG as follows: Interpretation: Sinus rhythm Ventricular rate 82 Normal axis Right bundle branch block Normal QRS Normal QTC No ST T wave changes MDM Narrative Medical decision making narrative: Patient has a relatively unremarkable exam. EKG is nonspecific changes. Vital signs unremarkable. Chest x-ray is unremarkable. Did have a troponin above the 99th percentile. Repeat 2 hours later relatively unchanged. Did discuss the case with Dr. Blakely on-call with Cardiology. The patient did have stress testing done just 3 months ago and an echocardiogram. Both of which were reported as negative. Last troponin prior to today was November this year were was undetectable negative. Cardiology did not feel that the patient would be a candidate for catheterization and would most likely not be a candidate for dual anti-platelet therapy given his myelodysplastic syndrome and his thrombocytopenia. Had a discussion with the patient regarding his symptoms. We did discuss being admitted to the hospital for trending of his troponins and for discussion about further risk s tratification more being discharged home given his workup recently. Patient opted to be admitted to the hospital. I did discuss case with BUZZ Porter the [facility] Hospital provider who will admit for further evaluation and treatment. Discharge Plan Departure Patient Disposition: Admitted as Observation Clinical Impression: SOB (shortness of breath) on exertion, Elevated troponin Prescriptions: No Action multivitamin Capsule 1 cap PO Q3D RF: 0 garlic Tablet 300 mg PO Q3D RF: 0 Reblozyl 75 mg recon soln 75 mg SUBCUT Q3W RF: 0 acetaminophen [Tylenol] 325 mg Tablet 325 mg DAILY PRN (Reason: Pain (Scale Score 1-3)) RF: 0 Retacrit 40,000 unit/mL Solution 30,000 unit SUBCUT 3XW Qty: 12 RF: 5 deferasirox 500 mg Tablet, Dispersible 1,000 mg PO DAILY RF: 0 ascorbic acid (vitamin C) [Vitamin C] 500 mg tablet 1,000 mg PO Q3D RF: 0 tamsulosin [Flomax] 0.4 mg capsule 0.4 mg PO DAILY Qty: 90 RF: 0 sodium bicarbonate 650 mg tablet 325 mg PO BID Qty: 90 RF: 3 Referrals: Catalino Herrera MD [Primary Care Provider] -
[2021-07-12 16:01] LABS: Add Manual Diff / Slide Review NO; Basophils Absolute Auto 200 /uL (0-100); Basophils Percent Auto 2.7 % (0-2); Eosinophils Absolute Auto 0 /uL (0-450); Eosinophils Percent Auto 0.3 % (2-4); Hematocrit 28.2 % (41-53); Hemoglobin 9.5 g/dL (13.5-17.5); Lymphocytes Absolute Auto 1500 /uL (1100-4500); Mean Corpuscular HGB Conc 33.8 % (30-36); Mean Corpuscular Hemoglobin 40.4 PG (26-34); Mean Corpuscular Volume 119.7 fL (80-100); Monocytes Absolute Auto 2100 /uL (0-900); Monocytes Percent Auto 30.9 % (3-14); Neutrophils Absolute Auto 3100 /uL (1500-7000); Neutrophils Percent Auto 45.1 % (50-75); Platelet Count 99 X10^3/uL (150-400); Red Blood Cell Count 2.35 X10^6/uL (4.5-5.9); Red Cell Distribution Width 28.2 % (11.6-14.8)
[2021-07-12 16:03] LABS: White Blood Cell Count 6.9 X10^3/uL (4.5-11.0)
[2021-07-12 16:05] LABS: Anisocytosis 3+; Hypochromasia 1+; Macrocytosis 3+; Ovalocytes 1+; Platelet Estimate Decreased on smear; Poikilocytosis 1+
[2021-07-12 16:21] LABS: Alanine Aminotransferase 98 IU/L (<50); Albumin 3.7 g/dL (3.5-5.0); Alkaline Phosphatase 56 U/L (38-126); Aspartate Aminotransferase 84 IU/L (17-59); BUN Creatinine Ratio 18.7 (6-22); Bilirubin Total 0.6 mg/dL (0.2-1.3); Blood Urea Nitrogen 14 mg/dL (9-20); Calcium 8.7 mg/dL (8.4-10.2); Carbon Dioxide 25 mmol/L (22-32); Chloride 105 mmol/L (98-107); Creatine Kinase 26 U/L (55-170); Estimated Glomerular Filt Rate > 60.0 mL/min (>60); Globulin 3.8 g/dL (1.7-4.1); Glucose 118 mg/dL (80-110); HEMOLYSIS 20 (0-50); Lipase 75 U/L (23-300); Magnesium 1.9 mg/dL (1.6-2.3); Potassium 4.3 mmol/L (3.4-5.1); Sodium 136 mmol/L (137-145); Total Protein 7.5 g/dL (6.3-8.2)
[2021-07-12 16:33] LABS: NT-proBNP (BNP-Adult 18+) 304 pg/mL (<450); Troponin I 0.058 ng/mL (0.01-0.034)
[2021-07-12 18:27] LABS: Creatine Kinase 20 U/L (55-170)
[2021-07-12 18:40] LABS: Troponin I 0.063 ng/mL (0.01-0.034)
--- NOTE | 2021-07-12 19:41 | P.HP_ITS ---
History of Present Illness History of Present Illness Date Patient Seen: 07/12/21 Time Patient Seen: 19:42 Chief complaint: SOB Narrative: Goldy Arechiga is an 81-year-old male who presented to the ED for dyspnea and chest pain on exertion. 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 Patient had last myocardial perfusion study that was considered low risk by Dr. Leyva 05/03/2021, and last echo was 04/16/2021 with an EF of 65-70 normal LV function by Dr. Blakely. Patient had labs drawn this morning after returning home he was sitting on the couch and got up to go to the computer to check his lab results when he developed shortness of breath and right-sided chest discomfort 12/06 he has been having shortness of breath with exertion off and on for the past several days/weeks but today it became worse and lasted longer than normal and he states he has never had right-sided chest discomfort like this before. Patient denied radiation of pain, it was constant, dull, and did not worsen with activity. Shortness of breath worsened with activity as did weakness but all 3 shortness of breath, weakness and chest pain resolved with rest. Patient verbalizes that the shortness of breath was the greater of his symptoms. By the time of ED evaluation he was no longer having chest discomfort, shortness of breath continued. As of admit exam patient had no symptoms at this time. Patient currently denies chest pain, shortness of breath, headache, changes in vision, head injury falls, loss of consciousness, dexterity weakness, diaphoresis, difficulty with speech, dizziness, abdominal pain, nausea, vomiting, diarrhea, chills, fever, body aches, hematuria, or melena. Patient's biggest concern was for the Susana- barre of which he was advised by Neurology that there is no treatment or interventions at this time. He is concerned that his increasing weakness and is related to this, in quite urgently is attempting to have follow-up care with Neurology. He verbalized that he may be having increasing difficulty with swallowing, but denies aspiration or choking. At the time of admit patient is resting comfortably in the ER with no complaints at this time. Patient's vitals upon admit are stable with a temp of 98.5?, BP 114/72, HR 70, RR 20, O2 saturation 96% on room air. Patient's RBC 2.35, HGB 9.5, HCT 28.2, MCV 119.7, PLT 99. Chemistries are predominantly unremarkable with chronic elevated LFTs AST 84, ALT 98, lipase within normal limits. Troponin 1. 0.058, 2. 0.063, Heart score: 6, patient's chest x-ray is negative for any acute cardiopulmonary processes. Patient's EKG is a sinus rhythm with a ventricular rate of 82, right bundle-branch block, without ST or T-wave changes-nonspecific changes. Dr. Little consulted Dr. Blakely Cardiology from the ED regarding this patient's case, Cardiology advised that based on the patient's MDS/MPN with moderate thrombocytopenia that he was not a candidate for catheterization at this time. He was also not recommended to repeat a stress test or echo as a have been done recently. He is to be admitted for chest pain/SOB with exertion, monitor overnight and trend troponins. 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) Vision disorder Surgical History History of hip replacement, total Hx of cystoscopy (05/10/21) Family & Social History Family History Father History of heart disease Mother Congestive heart failure Brother Cancer Sister Congestive heart failure Social History: household members spouse Safety & Behavioral: Feels Safe in Current Yes Environment Been Physically Hurt or No Threatened By a Person Tobacco & Substance use: Smoking Status Never smoker alcohol intake current alcohol intake frequency 0-2 drinks per day Substance Use Type does not use Meds Home Medications and Allergies Home Medications Medication Instructions Recorded Confirmed Type ascorbic acid (vitamin C) 500 mg 1,000 mg PO Q3D tab 03/17/21 07/09/21 History tablet (Vitamin C) garlic 300 mg PO Q3D tab 03/17/21 07/09/21 History multivitamin 1 cap PO Q3D cap 03/17/21 07/09/21 History tamsulosin 0.4 mg capsule (Flomax) 0.4 mg PO DAILY #90 cap 05/26/21 07/12/21 Rx sodium bicarbonate 650 mg tablet 325 mg PO BID #90 tab 06/02/21 07/09/21 Rx luspatercept-aamt 75 mg 75 mg SUBCUT Q3W 07/08/21 07/12/21 History subcutaneous solution (Reblozyl) glucosamine sulfate 500 mg tablet 1,000 mg PO DAILY 07/12/21 07/12/21 History (Glucosamine) magnesium 1 tab PO DAILY 07/12/21 07/12/21 History omega-3 fatty acids 1 cap PO DAILY 07/12/21 07/12/21 History Allergies Allergy/AdvReac Type Severity Reaction Status Date / Time No Known Drug Allergies Allergy Verified 07/12/21 15:29 Review of Systems Review of Systems Narrative: All 12 point systems reviewed with the patient and are negative except otherwise documented. Exam Vital Signs (past 8 hours): - 07/12/21 15:27 07/12/21 15:44 07/12/21 15:47 Temperature 98.5 F Pulse Rate 94 H 81 82 Respiratory Rate 18 24 21 Blood Pressure 124/71 109/65 Pulse Oximetry 99 97 07/12/21 16:00 07/12/21 16:30 07/12/21 17:00 Temperature Pulse Rate 82 78 75 Respiratory Rate 16 18 24 Blood Pressure 116/69 112/61 130/71 Pulse Oximetry 98 95 96 07/12/21 17:30 07/12/21 18:00 07/12/21 18:30 Temperature Pulse Rate 72 71 72 Respiratory Rate 17 19 16 Blood Pressure 112/63 129/60 111/76 Pulse Oximetry 97 94 96 07/12/21 19:00 07/12/21 19:01 Temperature Pulse Rate 71 70 Respiratory Rate 20 20 Blood Pressure 114/72 Pulse Oximetry 96 96 Oxygen Delivery Method Room Air Narrative Exam Narrative: General: Patient is a well-developed, well-nourished pleasant male in no distress at this time. HEENT: Normocephalic, atraumatic, extraocular muscles intact, oral pharynx is clear and mucous membranes are moist. Neck is supple and symmetric, trachea is midline, no adenopathy, no thyroid enlargement, nontender, no masses palpated. Negative for JVD Chest: Normal AP diameter and contour without kyphoscoliosis, no nasal flaring, retractions, or tachypneic labored Lungs: Auscultation of all lung ward are clear without adventitious sounds, wheezes, rhonchi, or rales. Cardio: S1 & S2 with regular rate and rhythm slight murmur without rubs, or gallops, no carotid bruit, no cardiac pulsations present. Abdomen: Soft nontender, negative for organomegaly, or masses. Bowel sounds are present in all 4 quadrants without guarding or rebound, no CVA tenderness. Musculoskeletal: Muscle strength and tone are equal within normal limits, no deformity, crepitus, effusions, cyanosis, or clubbing present. Full range of motion intact radial and pedal pulses are normal. Patient had mild nonpitting edema to bilateral feet right greater than left. Skin: Warm dry and intact without rashes, ulcerations or petechiae. Neuro: Alert and orientated x3, strength is +5/5 in all extremities, sensation to touch intact, no gross deficits noted of cranial nerves. Psych: Patient has a well-kept appearance, appropriate affect, mental status attitude thought context and judgment are appropriate for age. Objective Labs Result Diagrams: 07/12/21 15:53 07/12/21 15:53 Labs: Laboratory Results - last 24 hr 07/12/21 07/12/21 07/12/21 15:53 15:53 18:12 WBC 6.9 RBC 2.35 L Hgb 9.5 L Hct 28.2 L MCV 119.7 H MCH 40.4 H MCHC 33.8 RDW 28.2 H Plt Count 99 L Neut % (Auto) 45.1 L Lymph % (Auto) 21.0 L [place] % (Auto) 30.9 H Eos % (Auto) 0.3 L Baso % (Auto) 2.7 H Neut # (Auto) 3100 Lymph # (Auto) 1500 [place] # (Auto) 2100 H Eos # (Auto) 0 Baso # (Auto) 200 H Platelet Estimate Decreased on smear RBC Morphology Not Reportable Hypochromasia 1+ H Poikilocytosis 1+ H Anisocytosis 3+ H Macrocytosis 3+ H Ovalocytes 1+ H Sodium 136 L Potassium 4.3 Chloride 105 Carbon Dioxide 25 BUN 14 Creatinine 0.75 Estimated GFR > 60.0 BUN/Creatinine Ratio 18.7 Glucose 118 H Calcium 8.7 Magnesium 1.9 Total Bilirubin 0.6 AST 84 H ALT 98 H Alkaline Phosphatase 56 Total Creatine Kinase 26 L 20 L CK-MB (CK-2) TNP TNP CK-MB (CK-2) Rel Index TNP TNP Troponin I 0.058 H 0.063 H NT-Pro-B Natriuret Pep 304 Total Protein 7.5 Albumin 3.7 Globulin 3.8 Albumin/Globulin Ratio 1.0 Lipase 75 Assessment & Plan Assessment & Plan narrative: Goldy Arechiga is an 81-year-old male who has a 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 1. Chest pain with dyspnea and weakness on exertion, recurrent, acute, with elevated troponin, acute, present on admission -temp of 98.5?, BP 114/72, HR 70, RR 20, O2 saturation 96% on room air. Troponin 1. 0.058, 2. 0.063, heart score: 6, Chest x-ray is negative for any acute cardiopulmonary processes. EKG: sinus rhythm with a ventricular rate of 82, right bundle-branch block, without ST or T-wave changes-nonspecific changes. -rule out ACS, acute NH, STEMI, NSTEMI, UA, PE, CAD, aortic dissection -suspect patient is having an NSTEMI-type 2 NH. -monitor for hypertensive emergencies with acute end-organ damage, ventricular tachycardia, unstable SVT, hypertension, angina or NH, heart failure, renal failure. -Dr. Little her consulted Dr. Blakely Cardiology from the ED regarding this patient's case, Cardiology advised that based on the patient's MDS/MPN with moderate thrombocytopenia that he was not a candidate for catheterization at this time. He was also not recommended to repeat a stress test or echo as a have been done recently. He is to be admitted for chest pain monitor and trend troponins overnight. -Last myocardial perfusion study that was considered low risk by Dr. Leyva 05/03/2021, and last echo was 04/16/2021 with an EF of 65-70% normal LV function by Dr. Blakely. --admit continues telemetry, vital signs Q4, activity as tolerated, fall precautions, nursing to maintain O2 with a sat of 90% or higher, call for recurrence chest pain or systolic blood pressure below 100 or above 180 or heart rate below 50 or above 100, diet:heart healthy. -Goals:O2 to keep O2 sats greater than 92%, potassium > 4 and Mag > 2 -trend troponins overnight 2. MDS/MPN with transfusion-dependent anemia, moderate thrombocytopenia with normal WBC, acute on chronic, present on admission -Managed by oncology: Dr. De La Cruz, [facility]: /, -RBC 2.35, HGB 9.5, HCT 28.2, MCV 119.7, MCH 40.4, RDW 28.2%, PLT 99. -patient reports that these levels are baseline for him. -patient denies any recent illness injury trauma or bleeding. -continue patient's Reblozyl, Retacrit, deferasirox (patient may use his own medications) -monitor H&H and platelets 3. Elevated liver enzymes, acute on chronic, present on admission -AST 84, ALT 98 at base line 4. BPH, chronic, with a history of uric acid kidney stones, chronic, present on admission -continue patient's Flomax, and sodium bicarb -manage by Dr. Hudson urology 5. Recent history of Susana-Vinton due to Maxwell & Maxwell -05/2021 patient received 5 mg unit globulin daily x5 days-has continued leg weakness -followed by PCP Dr. Herrera -patient demonstrates no weakness of respiratory muscles or respiratory distress at this time. -encourage patient to follow-up with neurology or new PCP. Code status: Full code Surrogate decision maker: Maninder Cazares Partner COVID PCR: Negative COVID vaccination: [place] Vaccines May 2021 DVT/VTE prophylaxis: Medication contraindicated due to thrombocytopenia, SCDs only Estimated length of stay: Less than 2 midnights I have utilized all available immediate resources to obtain, update, or review the patient's current medications. I confirmed that the patient's advanced care plan is present, Code status is documented and/or surrogate decision maker is listed in the patient's medical record. Scores GCS V[place] coma scale eye opening: Spontaneous Vini coma scale verbal response: Orientated [place] coma scale motor response: Obey commands Vini coma scale total score: 15 CHADS-VASc Congestive heart failure: no Hypertension: no Age 75 years or older: yes Diabetes mellitus: no Stroke, TIA, or TE: no Vascular disease: no Age 65 to 74 years: no Sex category (female): Male CHADS-VASc Score: 2 SOFA PaO2/FIO2: >=400 mmHg Platelets: < 100 Bilirubin: < 1.2 mg/dL Hypotension: MAP >= 70 mmHg Vini Coma Scale: 15 Renal: < 1.2 mg/dL SOFA Score: 2 Wells' Criteria for PE Clinical signs and symptoms of DVT: No PE is #1 Dx or equally likely: No Heart rate > 100: No Immobilization at least 3 days or surg in previous 4 weeks: No History of PE or DVT: No Hemoptysis: No Malignancy w/Treatment within 6 months or palliative: Yes Wells' PE Score total: 1 Quality MIPS - Admit I confirm the patient?s Advance Care Plan is present, Code status is documented, Surrogate decision maker is in patient?s record [If Yes, STOP here]: Yes
[2021-07-12 20:01] LABS: Cholesterol 90 mg/dL (140-199); HDL Cholesterol 18 mg/dL (40-60); LDL Cholesterol Calculated 26 mg/dL (<100); Triglycerides 229 mg/dL (35-150)
[2021-07-12 21:33] LABS: Troponin I 0.062 ng/mL (0.01-0.034)
[2021-07-12 22:45] LABS: COVID19 - ADMIT (NP swab/PCR) Negative (Negative)
[2021-07-13 03:00] VITALS: O2SAT 95
[2021-07-13 04:05] VITALS: BP 114/67; PULSE 67; RESP 14; TEMP 36.2; O2SAT 95
[2021-07-13 04:47] LABS: Hematocrit 25.5 % (41-53); Hemoglobin 8.5 g/dL (13.5-17.5); Mean Corpuscular HGB Conc 33.3 % (30-36); Mean Corpuscular Hemoglobin 40.1 PG (26-34); Mean Corpuscular Volume 120.2 fL (80-100); Platelet Count 90 X10^3/uL (150-400); Red Blood Cell Count 2.12 X10^6/uL (4.5-5.9); Red Cell Distribution Width 27.9 % (11.6-14.8); White Blood Cell Count 5.8 X10^3/uL (4.5-11.0)
[2021-07-13 04:49] LABS: Add Manual Diff / Slide Review YES; D Dimer 518 ng/mL (<230)
[2021-07-13 04:52] LABS: BUN Creatinine Ratio 17.3 (6-22); Blood Urea Nitrogen 13 mg/dL (9-20); Calcium 8.4 mg/dL (8.4-10.2); Carbon Dioxide 28 mmol/L (22-32); Chloride 105 mmol/L (98-107); Estimated Glomerular Filt Rate > 60.0 mL/min (>60); Glucose 121 mg/dL (80-110); HEMOLYSIS < 15 (0-50); Potassium 4.5 mmol/L (3.4-5.1); Sodium 137 mmol/L (137-145)
[2021-07-13 05:05] LABS: NT-proBNP (BNP-Adult 18+) 214 pg/mL (<450); Troponin I 0.029 ng/mL (0.01-0.034)
[2021-07-13 05:23] LABS: Cortisol AM (Before 10AM) 10.6 ug/dL (4.46-22.7)
[2021-07-13 06:41] LABS: Neutrophils Absolute Manual 1798 /uL (3000-5900); Nucleated Red Blood Cells 1 #/Diff; Total Cells Counted 100
[2021-07-13 06:42] LABS: Anisocytosis 3+; Macrocytosis 3+
[2021-07-13 06:44] LABS: Dohle Bodies 1+
--- NOTE | 2021-07-13 07:16 | DI.ECHO.S_ITS ---
[facility]+ [facility] +---------+ : : [address] : [address] : : : : [id number] : : : : Phone: [phone]+ Echocardiogram Report + + :Name: JESE MEADE Study Date: 07/13/2021 Height: 73 in : :[facility] ReadingLocation: Weight: 212 lb : : Gender: Male BSA: 2.2 m2 : :: 1940 Age: 81 yrs BP: 133/72 mmHg: :Reason For Study: ELEVATED TROPONIN : :Ordering Physician: CHRISTIANO, : :PLACIDO Performed By: Marilyn Sanabria : :Referring: PLACIDO ALVARADO : + + Interpretation Summary The left ventricle is normal in size. The ejection fraction is estimated to be 65-70%. No significant change in LVEF from the previous study. The right ventricle is grossly normal size. The right ventricular systolic function is normal. The IVC is of normal diameter and collapses greater than 50% with a sniff. This suggests a low right atrial pressure of 3 mm Hg. Procedure: A two-dimensional transthoracic echocardiogram with color flow and Doppler was performed in limited views only to assess ejection fraction and wall motion.. The study quality was technically adequate. Comparison is made with the echocardiogram of 04/07/2021. The patient was in sinus rhythm with heart rates between 63-83 bpm during the exam. The patient had a bundle branch block rhythm during the exam. The patient had occasional PVCs during the exam. Left Ventricle: The left ventricle is normal in size. Proximal septal thickening is noted. There is no thrombus. The ejection fraction is estimated to be 65-70%. Septal motion is consistent with conduction abnormality. Right Ventricle: The right ventricle is grossly normal size. The right ventricular systolic function is normal. Atria: The left atrium is moderately dilated. The left atrium has mildly increased in size since the prior echo exam. Right atrial size is normal. Great Vessels: The IVC is of normal diameter and collapses greater than 50% with a sniff. This suggests a low right atrial pressure of 3 mm Hg. Pericardium/ Pleura There is no pericardial effusion. There is no pleural effusion. MMode/2D Measurements & Calculations LVIDd: 5.6 cm LA A2 area: 28.0 cm2 LVIDs: 3.4 cm LA A4 area: 25.6 cm2 FS: 38.5 % LA length (vol): 5.9 cm IVSd: 0.96 cm LA vol: 102.4 ml LVPWd: 1.2 cm LA vol index: 46.4 ml/m2 LV bush. diameter/BSA (cm/m^2): 2.5 LV sys. diameter/BSA (cm/m^2): 1.6 RA long axis: 5.5 cm RA area: 17.9 cm2 RA vol: 49.8 ml RA : 22.6 ml/m2 IVC diam: 1.1 cm Reading Physician:12:36 PM
[2021-07-13] MEDS: ATORVASTATIN 20 MG TABLET 40 MG PO (07:46)
[2021-07-13 07:55] VITALS: BP 118/69; PULSE 66; RESP 15; TEMP 36.3; O2SAT 93
[2021-07-13 09:52] VITALS: O2SAT 96
--- NOTE | 2021-07-13 11:41 | CM.DANOTE ---
Addendum entered by Vannessa Rai LPN 07/13/21 15:08: Checked in now with CATALINO Corrales. She reports that pt's concerns were addressed, pt's Maninder is here, the d/c is now all in place and pt is leaving momentarily. Addendum entered by Vannessa Rai LPN 07/13/21 12:02: Pt also reported an ultra sound of his heart had just been done. Addendum entered by Vannessa Rai LPN 07/13/21 11:53: Met with pt and introduced self and role. He is found lying in bed and going over his health care summary, given to him by his RN Savanna as part of the d/c process. Pt says he has several questions for Dr. Diaz re the lab results he is seeing. He clarifies that he does not have a skin former. He has seen one at as part of a consult during an admission but not in the outpt setting. He follows primarily at /[facility] in [place] and sees Dr. Cummings. (he has also worked with oncology [facility]). He is in treatment for bone marrow cancer and wonders if Dr. Diaz might want to consult with his oncologist before letting him d/c. Spoke now with CATALINO Corrales re his concerns and desire to speak further with the hospitalist. Savanna confirms she will follow up with pt on this shortly. P: ? still home today...will follow. Original Note: Discharge Planning/Care Management DCP: assessment: Case received and discussed in Team Rounds. A d/c to home order was then noted. Pt is an 81 year old male who admitted last night to care of hospitalist team. PCP: Catalino Herrera Payer: Medicare and [facility] Medication changes have been made and pt will be following up with his skin former. CM Discharge Assessment Start: 07/13/21 11:39 Freq: Status: Active Protocol: Document 07/13/21 11:39 ITV (Rec: 07/13/21 11:41 ITV [id number]) Discharge Planning Assessment Advance Directives? No History Provided By Medical Record Household Members spouse Is patient alert and oriented? Yes
[2021-07-13 11:58] VITALS: BP 130/71; PULSE 68; RESP 19; TEMP 36.4; O2SAT 98
[2021-07-13 13:00] VITALS: O2SAT 96
[2021-07-13 14:09] LABS: Hematocrit 28.7 % (41-53); Hemoglobin 9.5 g/dL (13.5-17.5)
--- NOTE | 2021-07-13 15:07 | PC.NURSE ---
`Discharge note: Patient discharge home per MD order, discharge instructions given to patient, discussed importance of F/U with PMD, new medications RX, and sigs of worsening symptoms. No c/o chest pain, SOB, VSS and afebrile. Remain on RA, sats 98%. Home via private vehicle in stable condition.
--- NOTE | 2021-07-13 18:29 | P.DS_ITS ---
History of Present Illness History of Present Illness Chief complaint: SOB Narrative: Per Stormy Porter: Goldy Arechiga is an 81-year-old male who presented to the ED for dyspnea and chest pain on exertion. 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 Patient had last myocardial perfusion study that was considered low risk by Dr. Leyva 05/03/2021, and last echo was 04/16/2021 with an EF of 65-[address] normal LV function by Dr. Blakely. Patient had labs drawn this morning after returning home he was sitting on the couch and got up to go to the computer to check his lab results when he developed shortness of breath and right-sided chest discomfort 12/06 he has been having shortness of breath with exertion off and on for the past several days/weeks but today it became worse and lasted longer than normal and he states he has never had right-sided chest discomfort like this before. Patient denied radiation of pain, it was constant, dull, and did not worsen with activity. Shortness of breath worsened with activity as did weakness but all 3 shortness of breath, weakness and chest pain resolved with rest. Patient verbalizes that the shortness of breath was the greater of his symptoms. By the time of ED evaluation he was no longer having chest discomfort, shortness of breath continued. As of admit exam patient had no symptoms at this time. Patient currently denies chest pain, shortness of breath, headache, changes in vision, head injury falls, loss of consciousness, dexterity weakness, diaphoresis, difficulty with speech, dizziness, abdominal pain, nausea, vomiting, diarrhea, chills, fever, body aches, hematuria, or melena. Patient's biggest concern was for the Susana- barre of which he was advised by Neurology that there is no treatment or interventions at this time. He is concerned that his increasing weakness and is related to this, in quite urgently is attempting to have follow-up care with Neurology. He verbalized that he may be having increasing difficulty with swallowing, but denies aspiration or choking. At the time of admit patient is resting comfortably in the ER with no complaints at this time. Patient's vitals upon admit are stable with a temp of 98.5?, BP 114/72, HR 70, RR 20, O2 saturation 96% on room air. Patient's RBC 2.35, HGB 9.5, HCT 28.2, MCV 119.7, PLT 99. Chemistries are predominantly unremarkable with chronic elevated LFTs AST 84, ALT 98, lipase within normal limits. Troponin 1. 0.058, 2. 0.063, Heart score: 6, patient's chest x-ray is negative for any acute cardi opulmonary processes. Patient's EKG is a sinus rhythm with a ventricular rate of 82, right bundle-branch block, without ST or T-wave changes-nonspecific changes. Dr. Little consulted Dr. Blakely Cardiology from the ED regarding this patient's case, Cardiology advised that based on the patient's MDS/MPN with moderate thrombocytopenia that he was not a candidate for catheterization at this time. He was also not recommended to repeat a stress test or echo as a have been done recently. He is to be admitted for chest pain/SOB with exertion, monitor overnight and trend troponins. Discharge Providers Provider Date of admission: 07/12/21 20:18 Discharge Date: 07/13/21 Primary care physician: Catalino Herrera MD Consults: 07/12/21 21:40 Consult to Dietitian, Adult Routine Comment: Reason For Exam: weight loss Discharge provider: Van Diaz MD Summary Hospital Course Discharge Diagnosis: 1. Cardiac demand ischemia 2. Guillan barre syndrome 3. Myelodysplastic syndrome with transfusion dependent anemia, also with thrombocytopenia 4. BPH Hospital Course: Mr. Arechiga presented with chest pain. He had this resolve without further treatment. However he did have a mildly elevated troponin. His troponin peaked at 0.062 and then was downtrending. He had no acute ischemic changes on his EKG. Within the last 3 months he had an ECHO and stress test that showed no acute abnormalities. He had a repeat ECHO that was unchanged from previously. Did discuss with patient the risk/benefits of treating his elevated troponin. It is possible it is related to demand ischemia with his multiple medical issues. He was started on metoprolol. He has previously had discussion about aspirin, and declines to take this currently given his increased risk of bleeding. He declines atorvastatin currently as well. I have recommended he follow up with cardiology to monitor him further. He should continue to have close follow up with neurology and oncology for his GBS and MDS respectively. Exam Vital Signs (past 8 hours): - 07/13/21 11:58 07/13/21 13:00 Temperature 97.5 F L Pulse Rate 68 Respiratory Rate 19 Blood Pressure 130/71 Pulse Oximetry 98 96 Oxygen Delivery Method Room Air Oxygen Flow Rate 0 Narrative Exam Narrative: GEN: no acute distress PULM: clear lungs bilaterally CV: regular rate and rhythm with no murmurs ABD: Soft nontender, nondistended, no organomegaly Objective Labs Result Diagrams: 07/13/21 13:56 07/13/21 04:15 Labs: Laboratory Results - last 24 hr 07/12/21 07/12/21 07/12/21 18:12 18:12 18:12 WBC RBC Hgb Hct MCV MCH MCHC RDW Plt Count Neut % (Auto) Lymph % (Auto) [place] % (Auto) Eos % (Auto) Baso % (Auto) Lymph # (Auto) [place] # (Auto) Baso # (Auto) Total Counted Seg Neutrophils % Band Neutrophils % Lymphocytes % (Manual) Atypical Lymphs % Monocytes % (Manual) Eosinophils % (Manual) Basophils % (Manual) Metamyelocytes % Myelocytes % Neutrophils # (Manual) Nucleated RBCs Dohle Bodies RBC Morphology Anisocytosis Macrocytosis D-Dimer Sodium Potassium Chloride Carbon Dioxide BUN Creatinine Estimated GFR BUN/Creatinine Ratio Glucose Calcium Magnesium 2.0 Total Creatine Kinase 20 L CK-MB (CK-2) TNP CK-MB (CK-2) Rel Index TNP Troponin I 0.063 H NT-Pro-B Natriuret Pep Triglycerides 229 H Cholesterol 90 L LDL Cholesterol, Calc 26 HDL Cholesterol 18 L Cortisol AM Sample SARS-CoV-2 (PCR) 07/12/21 07/12/21 07/13/21 21:04 21:30 04:15 WBC RBC Hgb Hct MCV MCH MCHC RDW Plt Count Neut % (Auto) Lymph % (Auto) [place] % (Auto) Eos % (Auto) Baso % (Auto) Lymph # (Auto) [place] # (Auto) Baso # (Auto) Total Counted Seg Neutrophils % Band Neutrophils % Lymphocytes % (Manual) Atypical Lymphs % Monocytes % (Manual) Eosinophils % (Manual) Basophils % (Manual) Metamyelocytes % Myelocytes % Neutrophils # (Manual) Nucleated RBCs Dohle Bodies RBC Morphology Anisocytosis Macrocytosis D-Dimer 518 H Sodium Potassium Chloride Carbon Dioxide BUN Creatinine Estimated GFR BUN/Creatinine Ratio Glucose Calcium Magnesium Total Creatine Kinase CK-MB (CK-2) CK-MB (CK-2) Rel Index Troponin I 0.062 H NT-Pro-B Natriuret Pep Triglycerides Cholesterol LDL Cholesterol, Calc HDL Cholesterol Cortisol AM Sample SARS-CoV-2 (PCR) Negative 07/13/21 07/13/21 07/13/21 04:15 04:15 13:56 WBC 5.8 RBC 2.12 L Hgb 8.5 L 9.5 L Hct 25.5 L 28.7 L MCV 120.2 H MCH 40.1 H MCHC 33.3 RDW 27.9 H Plt Count 90 L Neut % (Auto) Not Reportable Lymph % (Auto) Not Reportable [place] % (Auto) Not Reportable Eos % (Auto) Not Reportable Baso % (Auto) Not Reportable Lymph # (Auto) Not Reportable [place] # (Auto) Not Reportable Baso # (Auto) Not Reportable Total Counted 100 Seg Neutrophils % 20.0 L Band Neutrophils % 11.0 H Lymphocytes % (Manual) 39.0 Atypical Lymphs % 5.0 H Monocytes % (Manual) 16.0 H Eosinophils % (Manual) 1.0 L Basophils % (Manual) 1.0 Metamyelocytes % 3.0 H Myelocytes % 4.0 H Neutrophils # (Manual) 1798 L Nucleated RBCs 1 H Dohle Bodies 1+ H RBC Morphology See below Anisocytosis 3+ H Macrocytosis 3+ H D-Dimer Sodium 137 Potassium 4.5 Chloride 105 Carbon Dioxide 28 BUN 13 Creatinine 0.75 Estimated GFR > 60.0 BUN/Creatinine Ratio 17.3 Glucose 121 H Calcium 8.4 Magnesium Total Creatine Kinase CK-MB (CK-2) CK-MB (CK-2) Rel Index Troponin I 0.029 NT-Pro-B Natriuret Pep 214 Triglycerides Cholesterol LDL Cholesterol, Calc HDL Cholesterol Cortisol AM Sample 10.6 SARS-CoV-2 (PCR) [facility] Medical History (Updated 07/12/21 @ 21:23 by TIANA Oakley) Adrenal nodule (11/2020) Adrenal nodule Allergic sinusitis BPH (benign prostatic hyperplasia) Cataracts, bilateral (~1995) Chicken pox (~194) Elevated liver enzymes Erythropoietic hemochromatosis Essential thrombocytosis Hepatomegaly HNP (herniated nucleus pulposus), lumbar Melanoma (~1983) Postnasal drip Postural hypotension Serous otitis media 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) Thrombocytopenia 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) Vision disorder Surgical History History of hip replacement, total Hx of cystoscopy (05/10/21) Family History Father History of heart disease Mother Congestive heart failure Brother Cancer Sister Congestive heart failure Social History household members: spouse Smoking Status: Never smoker second hand exposure: No alcohol intake: current substance use type: does not use 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 Arechiga came in with chest pain and shortness of breath. His EKG did not show any heart attack. His troponin, a cardiac enzyme, was very slightly elevated but then came down. After discussion with him he has decided not to be on aspirin as he has MDS and has risk of bleeding, he decided to not be on atorvastatin (lipitor for now), he will be given a prescription for metoprolol to help protect his heart. He should follow up with cardiology within one week. Discharge orders & Medications Prescriptions: New metoprolol succinate 25 mg tablet extended release 24 hr 25 mg PO DAILY Qty: 30 RF: 0 Continued multivitamin Capsule 1 cap PO Q3D RF: 0 garlic Tablet 300 mg PO Q3D RF: 0 Reblozyl 75 mg recon soln 75 mg SUBCUT Q3W RF: 0 ascorbic acid (vitamin C) [Vitamin C] 500 mg tablet 500 mg PO Q3D RF: 0 glucosamine sulfate [Glucosamine] 500 mg Tablet 1,000 mg PO DAILY RF: 0 omega-3 fatty acids Capsule 1 cap PO DAILY RF: 0 magnesium Tablet 1 tab PO DAILY RF: 0 tamsulosin [Flomax] 0.4 mg capsule 0.4 mg PO DAILY Qty: 90 RF: 0 sodium bicarbonate 650 mg tablet 325 mg PO BID Qty: 90 RF: 3 Follow up/Referrals: Catalino Herrera MD [Primary Care Provider] - Diet/Activity/Treatments Diet: Regular Discharge Data Primary Care Provider: Catalino Herrera Attending Provider: Stormy Porter MIPS - DC The patient has current or prior documentation of left ventricular ejection fraction (LVEF) less than 40%, or moderate or severely depressed left ventricular systolic function.: No
== END 2021-07-13 15:00 | disposition home or self-care (01) ==
LOC: ED 19:19 → AC 20:19
PROVIDERS: Internal Medicine; Admitting Provider Nurse Practitioner Family; Emergency Provider Emergency Medicine; PCP Family Medicine; Visit Provider Nurse Practitioner Family
DX: I25.89 Other forms of chronic ischemic heart disease (principal); R06.02 Shortness of breath; D69.6 Thrombocytopenia, unspecified; R07.89 Other chest pain; D46.9 Myelodysplastic syndrome, unspecified; D61.1 Drug-induced aplastic anemia; T50.905A Adverse effect of unspecified drugs, medicaments and biological substances, initial encounter; G61.0 Guillain-Barre syndrome; N40.0 Benign prostatic hyperplasia without lower urinary tract symptoms; Z20.822 Contact with and (suspected) exposure to COVID-19; D47.3 Essential (hemorrhagic) thrombocythemia
CPT/HCPCS: 36415; 71045; 80048; 80053; 80061; 82533; 82550; 83690; 83735; 83880; 84484; 85007; 85014; 85018; 85025; 85379; 87635; 93005; 93010; 93307; 99284; C9803; G0378

== ENCOUNTER → 2021-07-17 14:37 | Outpatient (CLI) | payer MEDICARE, OTHER, SELFPAY ==
[2021-07-12 21:31] VITALS: BMI 29.0
[2021-07-17 15:15] LABS: COVID19 -Nasal RAPID Negative (Negative)
== END ==
PROVIDERS: PCP Family Medicine; Referring Provider Physician Assistant; Visit Provider Physician Assistant
DX: Z20.822 Contact with and (suspected) exposure to COVID-19 (principal)
CPT/HCPCS: 87635

== ENCOUNTER → 2021-09-16 13:12 | Outpatient (CLI) | payer MEDICARE, OTHER, SELFPAY ==
[2021-07-12 21:31] VITALS: BMI 29.0
== END ==
PROVIDERS: Family Provider Family Medicine; PCP Family Medicine; Referring Provider Family Medicine; Visit Provider Family Medicine
DX: R06.02 Shortness of breath (principal)
CPT/HCPCS: 93005; 93010

== ENCOUNTER → 2021-10-11 11:41 | Outpatient (CLI) | payer MEDICARE, OTHER, SELFPAY ==
[2021-07-12 21:31] VITALS: BMI 29.0
--- NOTE | 2021-10-11 | DI.RAD.S_ITS ---
PROCEDURE: XR CHEST 2V INDICATIONS: Shortness of breath TECHNIQUE: 2 views of the chest were acquired. COMPARISON: [facility], CR, XR CHEST 2V, 01/31/2020, 10:25. FINDINGS: Surgical changes and devices: None. Lungs and pleura: Lungs are clear. No pleural effusions or pneumothorax. Mediastinum: Mediastinal contours are normal. Heart size is normal. Bones and chest wall: No suspicious bony abnormalities. Soft tissues appear unremarkable. IMPRESSION: No acute cardiopulmonary disease process. Dictated by: Nori Valadez MD, PhD on 10/11/2021 at 15:08 Approved by: Nori Valadez MD, PhD on 10/11/2021 at 15:18
== END ==
PROVIDERS: Family Provider Family Medicine; PCP Family Medicine; Referring Provider Psychiatry & Neurology Neurology; Visit Provider Psychiatry & Neurology Neurology
DX: R06.02 Shortness of breath (principal)
CPT/HCPCS: 71046

== ENCOUNTER → 2021-12-06 12:49 | Outpatient (CLI) | payer MEDICARE, OTHER, SELFPAY ==
[2021-07-12 21:31] VITALS: BMI 29.0
--- NOTE | 2021-12-06 12:51 | DI.ECHO.S_ITS ---
[place] [facility]---------+ [facility] +---------+ : : [address] : : : : [id number] : : : : Phone: [phone]+ Echocardiogram Report + + :Name: JESE MEADE Study Date: 12/06/2021 Height: 73 in : :[facility] ReadingLocation: Weight: 218 lb : : Gender: Male BSA: 2.2 m2 : :: 1940 Age: 81 yrs BP: 120/68 mmHg: :Reason For Study: SOB : :Ordering Physician: : :ANDREINA Performed By: Balbir Cox : :Referring: JOHNSON GUERRERO : + + Interpretation Summary Normal left ventricle size with ejection fraction 60-65%. There is mild proximal septal thickening noted. Mild aortic stenosis. The peak aortic velocity is 2.3 m/sec. Mild aortic regurgitation. Comparison is made with the echocardiogram of 04/07/2021, aortic stenosis has progressed slightly. Procedure: A two-dimensional transthoracic echocardiogram with color flow and Doppler was performed. Comparison is made with the echocardiogram of 04/07/2021. Overall fair image quality. The heart rate ranged between 78 - 88 bpm during the study. Left Ventricle: The left ventricle is normal in size. There is mild proximal septal thickening noted. The ejection fraction is estimated to be 60-65%. beat - to - beat variation of EF. There are no focal wall motion abnormalities. Diastolic function could not be accurately assessed due to unobtainable data. Right Ventricle: The right ventricle is normal in size and function. Atria: The left atrial size is normal. Borderline right atrial enlargement. There is no Doppler evidence for an interatrial shunt. Mitral Valve: The mitral valve is normal. There is trace mitral regurgitation. Aortic Valve: The aortic valve is trileaflet. There is mild aortic stenosis. The peak aortic velocity is 2.3 m/sec. There is mild aortic regurgitation. Tricuspid Valve: The tricuspid valve is normal. There is trace tricuspid regurgitation. The right ventricular systolic pressure is estimated to be at least 33 mmHg based on an estimated right atrial pressure of 3 mm Hg. Pulmonic Valve: The pulmonic valve leaflets are thin and pliable; valve motion is normal. There is trace pulmonic regurgitation. Great Vessels: Aortic root measures 4 cm, unchanged from previous study. Ascending aorta measures abour 3.7 cm, previously measuring 4 cm. The aortic arch could not be visualized. The IVC is of normal diameter and collapses greater than 50% with a sniff. This suggests a low right atrial pressure of 3 mm Hg. Pericardium/ Pleura There is no pericardial effusion. There is no pleural effusion. MMode/2D Measurements & Calculations LVIDd: 4.6 cm LVOT diam: 2.7 cm LVIDs: 3.0 cm Ao root diam: 4.0 cm FS: 34.8 % asc Aorta Diam: 3.7 cm IVSd: 1.3 cm LVPWd: 1.9 cm LV bush. diameter/BSA (cm/m^2): 2.1 LV sys. diameter/BSA (cm/m^2): 1.3 LA A2 area: 23.0 cm2 RA long axis: 5.2 cm LA A4 area: 20.3 cm2 RA area: 16.4 cm2 LA length (vol): 5.8 cm RA vol: 44.3 ml LA vol: 68.3 ml RA : 19.9 ml/m2 LA vol index: 30.6 ml/m2 TAPSE: 2.9 cm Doppler Measurements & Calculations Ao V2 max: 232.1 cm/sec LVOT Max Senthil: 98.6 cm/sec Ao V2 mean: 172.4 cm/sec LV V1 max P.9 mmHg Ao max P.7 mmHg LV V1 VTI: 21.4 cm Ao mean P.9 mmHg JOE(I,D): 2.6 cm2 Ao V2 VTI: 46.8 cm JOE(V,D): 2.4 cm2 sev ratio: 0.46 JOE indexed to BSA (cm^2/m^2): 1.2 TR max senthil: 274.2 cm/sec SV(LVOT): 122.3 ml TR max P.1 mmHg Electronically signed by: Ladonna Bingham on Reading Physician:12/06/2021 04:02 PM
--- NOTE | 2021-12-06 12:51 | DI.MRI.S_ITS ---
PROCEDURE: MR LUMBAR SPINE WO CON INDICATIONS: bilateral leg weakness, feet numbness TECHNIQUE: Noncontrast sagittal T1 spin echo and T2 fast echo, sagittal STIR, axial T1 and T2 fast spin echo through the lumbar spine. In cases with scoliosis, additional coronal T2 fast spin echo may be performed. COMPARISON: [facility], CT, CT CHEST ABD PEL W CON, 12/06/2021, 14:36. FINDINGS: Image quality: Excellent. Alignment and Curvature: There is normal bony alignment. Bone Marrow: There is overall loss of the normal bone marrow signal, which is particularly well seen on the T1 weighted sagittal images. Spinal Cord: Conus medullaris terminates at the L1 level. Visualized cord demonstrates normal signal and size. Paraspinous Soft Tissues: No paravertebral masses. This patient has transitional lumbar anatomy. For the purposes of this examination, the level with the T12-L1: Normal appearance. L1-L2: The disc height is well-preserved. Loss of disc signal is seen at this level. There is [id number] right-sided and moderate left-sided neural foraminal narrowing seen. Mild central L2-L3: The disc height and disk signal are well-preserved. Mild generalized disc bulge is seen. There is moderate right-sided and minimal left-sided neural foraminal narrowing seen. Mild central canal narrowing is seen. L3-L4: The disc height and disk signal are well-preserved. Moderate generalized disc bulge is seen. Moderate facet joint hypertrophy is seen. Moderate bilateral neural foraminal narrowing can be seen, left worse than right. Moderate central canal narrowing is seen. L4-L5: The disc height is well-preserved. Loss of disc signal is seen at this level. Moderate generalized disc bulge is seen. Moderate to prominent facet hypertrophy is seen. There is at least moderate bilateral neural foraminal narrowing seen. At least moderate central canal narrowing is seen. L5-S1: Mild loss of disc height is seen. Loss of disc signal is seen. Moderate disc bulge is seen, which is eccentric to the left. Moderate facet joint hypertrophy is seen. There is at least moderate bilateral neural foraminal narrowing seen. Mild central canal narrowing is seen. S1-S2: A transitional, rudimentary disc can be seen. No significant neural foraminal or central canal narrowing can be seen. IMPRESSION: There is generalized loss of the normal bone marrow signal. Please correlate with a diffuse marrow replacement process, including severe knee media. Generalized degenerative changes are seen, which are worst inferiorly. Dictated by: Ravi Dai M.D. on 12/06/2021 at 15:21 Approved by: Ravi Dai M.D. on 12/06/2021 at 15:26
--- NOTE | 2021-12-06 14:31 | DI.CT.S_ITS ---
PROCEDURE: CT CHEST ABD PEL W CON INDICATIONS: shortness of breath TECHNIQUE: After the administration of oral and intravenous contrast, axial sections acquired from the supraclavicular neck to the pubic symphysis. Coronal and sagittal reformats were performed. For radiation dose reduction, the following was used: automated exposure control, adjustment of mA and/or kV according to patient size. COMPARISON: [facility], CT, CT KIDNEY URETER BLADDER (KUB), 05/07/2021, 8:55. FINDINGS: Image quality: Excellent. CHEST: Lower Neck: No enlarged lymph nodes. Thyroid: Within normal limits. Axillae: No enlarged lymph nodes. Chest Wall: Unremarkable. Lungs and Airways: No consolidation or suspicious nodules. Mild right lung base scarring is unchanged. 3 mm nodule within the right upper lobe laterally. Pleura: No pneumothorax or pleural effusions. Heart: Heart size is normal. No pericardial effusion. There is severe calcification of the coronary vasculature. Thoracic Vessels: The aorta and pulmonary arteries demonstrate normal size. Mediastinum and Susan: Left posterior mediastinal periesophageal lymph node measuring 15 mm short axis. AP window lymph node enlargement measuring 11 mm short axis. Esophagus: No wall thickening. No hiatal hernia. ABDOMEN: Liver: Liver demonstrates a nodular contour, consistent with cirrhosis. Gallbladder: Demonstrates multiple calculi within its lumen, and is otherwise within normal limits. Biliary ducts: Unremarkable. Pancreas: Unremarkable. Spleen: Enlarged, as before, currently measuring roughly 16.6 cm, which is slightly increased. Adrenal Glands: No left adrenal nodule. Right adrenal nodule is unchanged. Kidneys and Ureters: Nonobstructing bilateral renal calcifications, largest of which is in the superior pole left kidney measuring 9 mm diameter. Right renal calcifications appear to be renal vascular. Stomach and Bowel: Stomach and small bowel are grossly unremarkable. Appendix is normal. There is underfilling of the cecum which appears moderately thickened. Peritoneum: Small amount of ascites is present. No free air. Ventral Wall: No hernia. Abdominal Nodes: No retroperitoneal or mesenteric adenopathy by size criteria. Multiple mildly prominent, subcentimeter mesenteric lymph nodes are present. Mild mesenteric fat stranding is present. Vessels: Aorta and inferior vena cava are normal in size. PELVIS: Pelvic Organs: Unremarkable. Bladder: Unremarkable. Pelvic Nodes: No enlarged lymph nodes. Miscellaneous: No inguinal hernias are seen. Bones: Bilateral hip arthroplasty has been performed. IMPRESSION: 1. Pathologically enlarged mediastinal lymph nodes as above. Differential considerations include reactive lymph node enlargement, lymphoma, and metastatic disease. 2. Small right upper lobe pulmonary nodule. Follow-up is recommended as below. 3. Coronary artery disease. 4. Cholelithiasis. No evidence of cholecystitis. 5. Cirrhosis. 6. Increased splenomegaly. 7. No change in right adrenal nodule. 8. No significant change in mild mesenteric lymph node prominence. Fleischner Society criteria for SOLID lung nodule followup. Nodule size (mm)Low-risk patientHigh-risk patient<6 (single or multiple)No routine followup.Optional CT at 12 months. 6-8 (single or multiple)CT at 6-12 months, then optional CT at 18-24 mo.CT at 6-12 months, then CT at 18-24 months. >8 (single)CT, PET-CT, or biopsy at 3 months. Same as for low-risk pts. >8 (multiple)CT at 3-6 months, then optional CT at 18-24 mo.CT at 3-6 months, then CT at 18-24 months. Recommendations do not apply to lung cancer screening, patients with immunosuppression, or patients with known primary cancer. Dictated by: Jennifer Taylor M.D. on 12/06/2021 at 16:11 Approved by: Jennifer Taylor M.D. on 12/06/2021 at 16:45
== END ==
PROVIDERS: Family Provider Family Medicine; PCP Family Medicine; Referring Provider Family Medicine; Visit Provider Family Medicine
DX: R06.02 Shortness of breath (principal); I35.2 Nonrheumatic aortic (valve) stenosis with insufficiency; I77.810 Thoracic aortic ectasia; M47.816 Spondylosis without myelopathy or radiculopathy, lumbar region; R29.898 Other symptoms and signs involving the musculoskeletal system; R01.1 Cardiac murmur, unspecified; R16.0 Hepatomegaly, not elsewhere classified; D46.9 Myelodysplastic syndrome, unspecified; G61.0 Guillain-Barre syndrome; E27.8 Other specified disorders of adrenal gland; R59.0 Localized enlarged lymph nodes; R91.8 Other nonspecific abnormal finding of lung field; I25.10 Atherosclerotic heart disease of native coronary artery without angina pectoris; K80.20 Calculus of gallbladder without cholecystitis without obstruction; K74.60 Unspecified cirrhosis of liver; R16.1 Splenomegaly, not elsewhere classified
CPT/HCPCS: 71260; 72148; 74177; 93306

== ENCOUNTER → 2021-12-06 15:18 | Outpatient (ROUT) | payer MEDICARE, OTHER, SELFPAY ==
[2021-07-12 21:31] VITALS: BMI 29.0
[2021-12-06 16:15] LABS: Hematocrit 23.2 % (41-53); Hemoglobin 7.7 g/dL (13.5-17.5); Mean Corpuscular Hemoglobin 41.9 PG (26-34); Platelet Count 126 X10^3/uL (150-400); Red Blood Cell Count 1.83 X10^6/uL (4.5-5.9); Red Cell Distribution Width 19.4 % (11.6-14.8); White Blood Cell Count 9.2 X10^3/uL (4.5-11.0)
[2021-12-06 16:17] LABS: Add Manual Diff / Slide Review YES; Mean Corpuscular Volume 127.1 fL (80-100)
[2021-12-06 16:36] LABS: Hemoglobin A1C% w Est Avg Glu 5.6 % (4.0-6.0)
[2021-12-06 17:32] LABS: Neutrophils Absolute Manual 3864 /uL (3000-5900); Nucleated Red Blood Cells 1 #/Diff; Total Cells Counted 100
[2021-12-06 17:34] LABS: Anisocytosis 3+; Macrocytosis 3+; Poikilocytosis 1+; Polychromasia 1+
[2021-12-06 18:09] LABS: Folate 7.8 ng/mL (2.76-20.0); Vitamin B12 451 pg/mL (239-931)
[2021-12-07 13:59] LABS: Free Kappa Lt Chains, Serum 69.1 mg/L (3.3-19.4); Free Lambda Lt Chains,Serum 38.4 mg/L (5.7-26.3)
[2021-12-08 12:10] LABS: Immunoglobulin A, Serum 274 mg/dL (61-437); Immunoglobulin G,Serum 2141 mg/dL (603-1613); Immunoglobulin M, Serum 108 mg/dL (15-143)
[2021-12-08 18:17] LABS: Albumin 3.2 g/dL (2.9-4.4); Alpha-1-Globulin 0.2 g/dL (0.0-0.4); Alpha-2-Globulin 0.5 g/dL (0.4-1.0); Gamma Globulin 2.2 g/dL (0.4-1.8); Globulin Total 3.6 g/dL (2.2-3.9); Protein, Total 6.8 g/dL (6.0-8.5)
[2021-12-08 22:07] LABS: ANA Screen, IFA Positive (.); Centromere Pattern >1:1280 (.)
[2021-12-16 11:41] LABS: Acetylcholine Blocking AB 23 % (0-25); Acetylcholine Receptor Bind AB <0.03 nmol/L (0.00-0.24); MuSK Antibodies <1.0 U/mL (.)
== END ==
PROVIDERS: Internal Medicine Medical Oncology; Family Provider Family Medicine; PCP Family Medicine; Visit Provider Internal Medicine
DX: D46.9 Myelodysplastic syndrome, unspecified (principal); D47.3 Essential (hemorrhagic) thrombocythemia
CPT/HCPCS: 36415; 82607; 82746; 82784; 83036; 83519; 83883; 84155; 84165; 85007; 85025; 86038; 86255; 86334

== ENCOUNTER → 2021-12-29 14:52 | Outpatient (CLI) | payer MEDICARE, OTHER, SELFPAY ==
[2021-07-12 21:31] VITALS: BMI 29.0
[2021-12-29 15:49] LABS: COVID19 -Nasal RAPID Negative (Negative)
== END ==
PROVIDERS: Family Provider Family Medicine; PCP Family Medicine; Referring Provider Internal Medicine; Visit Provider Internal Medicine
DX: Z20.822 Contact with and (suspected) exposure to COVID-19 (principal)
CPT/HCPCS: 87635; C9803

== ENCOUNTER → 2021-12-30 08:52 | Outpatient (CLI) | payer MEDICARE, OTHER, SELFPAY ==
[2021-07-12 21:31] VITALS: BMI 29.0
--- NOTE | 2022-01-05 08:26 | PM.PFT.1 ---
Pulmonary Function Test Referral & Results Date Patient Seen: 12/30/21 Requesting provider: Catalino Herrera Results: The spirometry demonstrates an FVC of 3.38 L which is 73% of predicted. The FEV1 was measured at 2.32 L which is 70% of predicted. The FEV1/FVC ratio was 68 which is 96% of predicted. Following the administration of bronchodilator there was an 8% improvement in FEV1 and a 34% improvement in FEF 25-75% Lung volumes show an SVC of 3.52 L which is 71% of predicted. The diffusing capacity was measured at 17.65 which is 46% of predicted. No hemoglobin value was provided, so no correction for potential anemia could be made, if appropriate. The maximum voluntary ventilation was reduced Interpretation: This study demonstrates possibly mild obstructive lung disease based on reduction FEV1 although FEV1/FVC ratio is preserved. There is some limited evidence of benefit following bronchodilator administration particularly small airway flow as above based on improvement in FEF 25-75%. Shape of flow volume loop probably supports some degree of obstructive lung disease as well There is also reduction in lung volumes based on reduction SVC suggesting mild restrictive lung disease which may well explain the abnormality in FEV1 above. There is a more dramatic reduction diffusing capacity suggesting more significant disease at the capillary alveolar level Clinical correlation suggested
== END ==
PROVIDERS: Family Provider Family Medicine; PCP Family Medicine; Referring Provider Family Medicine; Visit Provider Family Medicine
DX: R06.02 Shortness of breath (principal); R16.0 Hepatomegaly, not elsewhere classified; D46.9 Myelodysplastic syndrome, unspecified; G61.0 Guillain-Barre syndrome; R29.898 Other symptoms and signs involving the musculoskeletal system; E27.8 Other specified disorders of adrenal gland
CPT/HCPCS: 94060; 94726; 94729

== ENCOUNTER → 2022-04-20 09:57 | Outpatient (CLI) | payer MEDICARE, OTHER, SELFPAY ==
[2021-07-12 21:31] VITALS: BMI 29.0
[2022-04-20 12:03] LABS: COVID19 -Nasal RAPID Negative (Negative)
== END ==
PROVIDERS: Family Provider Family Medicine; PCP Family Medicine; Referring Provider Internal Medicine; Visit Provider Internal Medicine
DX: Z20.822 Contact with and (suspected) exposure to COVID-19 (principal)
CPT/HCPCS: 87635; C9803

== ENCOUNTER → 2022-04-21 09:52 | Outpatient (CLI) | payer MEDICARE, OTHER, SELFPAY ==
[2021-07-12 21:31] VITALS: BMI 29.0
--- NOTE | 2022-05-01 13:50 | P.PFT.S_ITS ---
Pulmonary Function Test Referral & Results Date Patient Seen: 04/21/22 Requesting provider: Aubrey Arteaga Results: The spirometry demonstrates an FVC of 3.39 L which is 73% of predicted. The FEV1 was measured at 2.35 L which is 71% of predicted. The FEV1/FVC ratio was 69 which is 97% of predicted. Following the administration of bronchodilator there was a 27% improvement in FEF 25-75% Lung volumes show an SVC of 3.44 L which is 69% of predicted. The diffusing capacity was measured at 19.46 which is 51% of predicted. No hemoglobin value was provided, so no correction for potential anemia could be made, if appropriate. The maximum voluntary ventilation was reduced Interpretation: This study demonstrates the possibility of mild obstructive lung disease based on reduction FEV1 although FEV1/FVC ratio is preserved there is some evidence of small airway flow improvement following bronchodilator as above There is a djkx-in-[id number] reduction in lung volumes suggesting mild to modera te restrictive lung disease which may well explain the abnormality of the FEV1 above There is also a moderate reduction diffusing capacity suggesting disease at the capillary alveolar level Clinical correlation suggested
== END ==
PROVIDERS: Family Provider Family Medicine; PCP Family Medicine; Referring Provider Internal Medicine Critical Care Medicine; Visit Provider Internal Medicine Critical Care Medicine
DX: J70.8 Respiratory conditions due to other specified external agents (principal); J98.8 Other specified respiratory disorders; R06.00 Dyspnea, unspecified
CPT/HCPCS: 94060; 94726; 94729

== ENCOUNTER 2022-05-12 09:00 | Outpatient (RCR) | payer MEDICARE, OTHER, SELFPAY ==
[2021-07-12 21:31] VITALS: BMI 29.0
--- NOTE | 2021-08-19 10:23 | PT.OIE ---
Current Diagnoses Guillain-[place] syndrome (08/19/21) Muscle weakness (generalized) (08/19/21) Difficulty in walking, not elsewhere classified (08/19/21) Past Medical History (Last Reviewed 07/17/21 @ 19:23 by Raquel Walls PA-C) Adrenal nodule (11/2020) Adrenal nodule Allergic sinusitis BPH (benign prostatic hyperplasia) Cataracts, bilateral (~1995) Chicken pox (~194) Elevated liver enzymes Erythropoietic hemochromatosis Essential thrombocytosis Hepatomegaly History of hip replacement, total HNP (herniated nucleus pulposus), lumbar Hx of cystoscopy (05/10/21) Melanoma (~1983) Postnasal drip Postural hypotension Serous otitis media 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) Thrombocytopenia 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) Vision disorder Past Surgical History (Last Reviewed 07/17/21 @ 19:23 by Raquel Walls PA-C) History of hip replacement, total Hx of cystoscopy (05/10/21) Visit Care Team Role Provider Type Catalino Herrera MD Attending Provider Physician Family Provider Primary Care Provider Referring Provider Specialty: Family Practice Address: [address] [place] [address] Email: [email or web address] Therapy Initial Evaluation PT-OP-A Visit Information Start: 08/18/21 11:31 Freq: Status: Active Protocol: Document 08/19/21 07:38 [facility] (Rec: 08/19/21 10:23 [facility] [id number]) Out-Patient Physical Therapy Visit Information Visit Information Visit Type Initial Evaluation Visit Note 12/06 Visit Start Time 09:05 Visit Stop Time 09:52 Total Visit Minutes 47 Visit Number 1 Number of TRAVELING CONSTRUCTION SUPERINTENDENT Visits 0 PT-OP-B Current Condition Start: 08/18/21 11:31 Freq: Status: Active Protocol: Document 08/19/21 07:38 [facility] (Rec: 08/19/21 10:23 [facility] [id number]) Current Condition History of Current Condition Onset Date 1.5 years ago Current Complaints weakness History of Current Condition Pt was diagonosed w/ myelofibrosis which comes w/ low hematocrit and platelets and has slowly dec frequency to 4 weeks ago. He had The [place] shot February 08 and developed Guillian [place] Syndrome symptoms a few weeks later. He got his blood count done and was fine and was severe weakness. Severe weakness in legs and some in arms w/no reflexs and some facilitations whcih he doens't have it any more. He had infusions of immunoglobulin and it seemed to help a bit at first. He has an electric WC coming today that he paid for out of pocket that he plans to use when out of the house. He can recover from activity w/5 -10 min of rest. He has some ankle swelling that started aobut 6 months ago but labs have all been normal for possible CHF. Pt reports he gets SOB and weakness. He has postural hypotension. Pt reports some gradual minor memory loss. Pt has B hip replacement and a microdiscectomy L4-5. No falls . Pt sees Oncology every 3 weeks and gets a subcutaneous shot every 3 weeks which inc red blood cells. Prior to these diagnoses (1.5 years ago ), he was sailing, biking, tennis, hiking and walking. Pt reports he can cut about 3 roses then has to sit down d/t fatigue. His chores are very short. Indep w/ADLs. Can only walk 80ft before he has to rest. Prior Treatments and Tests No PT since all of this started Treatment Goals Patient/Caregiver Goals inc tolerance w/walking, inc endurance, be able to get up/ down from ground w/o outside support PT-OP-D Balance Start: 08/18/21 11:31 Freq: Status: Active Protocol: Document 08/19/21 07:38 [facility] (Rec: 08/19/21 10:23 [facility] [id number]) Balance Tests Dunn Balance Test Dunn Balance Test Score 46/56 PT-OP-E Functional Tests Start: 08/18/21 11:31 Freq: Status: Active Protocol: Document 08/19/21 07:38 [facility] (Rec: 08/19/21 10:23 [facility] [id number]) Functional Tests 2 Minute Walk Test Distance 99ft Device Used reached for rails and exercise equipment in clinic Comments had to rest after 1 min 14 sec PT-OP-G Mobility & Gait Start: 08/18/21 11:31 Freq: Status: Active Protocol: Document 08/19/21 07:38 [facility] (Rec: 08/19/21 10:23 [facility] [id number]) OP Mobility Evaluation Bed Mobility Supine to and from Sit indep Transfers Sit to Stand able to sit to stand indep - chooses to use UEs but can w/o OP Gait Assessment Comments Gait Comments Amb with slow pace and dec push off PT-OP-M Strength Start: 08/18/21 11:31 Freq: Status: Active Protocol: Document 08/19/21 07:38 [facility] (Rec: 08/19/21 10:23 [facility] [id number]) Hip Strength Hip Manual Muscle Testing Right Flexion (L2) 3+ Fair+ Extension (S1) 2+ Poor+ Abduction 3+ Fair+ External Rotation 3+ Fair+ Internal Rotation 4- Good- Left Flexion (L2) 3+ Fair+ Extension (S1) 2+ Poor+ Abduction 3+ Fair+ External Rotation 3+ Fair+ Internal Rotation 4- Good- Comments goes into flex B w/abd testing Knee Strength Knee Manual Muscle Testing Right Flexion (S2) 4- Good- Extension (L3) 4+ Good+ Left Flexion (S2) 4- Good- Extension (L3) 4+ Good+ Ankle/Foot Strength Ankle and Foot Manual Muscle Testing Right Dorsiflexion (L4) 3+ Fair+ Plantarflexion (S1) 4+ Good+ Comments PF tested seated Left Dorsiflexion (L4) 4- Good- Plantarflexion (S1) 4+ Good+ PT-OP-T Assessment and Plan Start: 08/18/21 11:31 Freq: Status: Active Protocol: Document 08/19/21 07:38 [facility] (Rec: 08/19/21 10:23 [facility] [id number]) Physical Therapy Assessment Rehab Potential Rehabilitation Potential Good Evaluation Complexity Number of Personal Factors/Comorbidities 3 or More Number of Body Systems Impaired 4 or More Clinical Presentation at Evaluation Evolving Impairments Impairments Activity Tolerance,Balance, Functional Activities, Functional Mobility,Gait, Posture,Strength,Transfers Goals sit to stand Intermediate Goal (LTG) Pt will be able to complete at least 10 sit to stands in 30 sec to show improved strength and funcitonal ability. balance Intermediate Goal (LTG) Pt will be able to score at least 20/24 on DGI to show dec risk for falls. LTG Duration 11/18/21 strength Short Term Goal (STG) Pt will be indep w/HEP STG Duration 09/18/21 Intermediate Goal (LTG) Pt will score at least 4/5 on all LE MMT to show improved strengtht o improve pt's ability to participate in home activities. LTG Duration 11/18/21 walking Short Term Goal (STG) Pt willb e able to complete 2 min walk test w/o requriing seated rest break at least 160ft to show improved activity tolerance. STG Duration 09/27/21 Intermediate Goal (LTG) Pt will be able to complete 6 min walk test with distance of at least 450ft. LTG Duration 11/18/21 Assessment Summary Assessment Pt presents w/diagnosis of Guilliane-[place] Syndrome after Maxwell and Maxwell immunization in January with diagnosis of myelofibrosis 1.5 years ago. 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 He is very weak and has lost his ability to live an active life like he used to 1.5 years ago (sailing, biking, hiking,w alking, traveling). His recovery is complicated by the 2 diagnoses that both cause weakness and he has treatments occuring w/each. He has very limited activity tolerance w/ limit of walking about 100ft prior to fatigue and requring seated rest break. Mult rest breaks were required during testing today. He has significant weakness and would benefit from skilled PT to work on progression of balance , gait, strength and imprvoing activity tolerance and functional ability. Physical Therapy Plan Frequency and Duration Frequency of Treatment 2x/Week Duration of Treatment 3 months Plan of Care Start Date 08/19/21 Plan of Care End Date 11/18/21 Therapeutic Interventions Therapeutic Interventions Aquatic Therapy,Balance Training,Gait Training,Home Exercise Program,Joint Mobilizations,Manual Therapy, Neuromuscular Re-education, Orthotic/Prosthetic Management ,Patient/Caregiver Education, Self-Care/Home Management,Soft Tissue Mobilization,Taping, Therapeutic Activities, Therapeutic Exercises Modalities Cold Pack/Ice Massage,Electric Stimulation,Hot Packs Next Visit Focus/Plan Next Note Type Treatment Note Next Visit Plan Give pt HEP: seated march, abd , knee flex, ext, sit<>stand, try DGI
--- NOTE | 2021-08-19 10:23 | PT.OPPOC ---
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 Plan Of Care PT-OP-T Assessment and Plan Start: 08/18/21 11:31 Freq: Status: Active Protocol: Document 08/19/21 07:38 [facility] (Rec: 08/19/21 10:23 [facility] [id number]) Physical Therapy Assessment Rehab Potential Rehabilitation Potential Good Evaluation Complexity Number of Personal Factors/Comorbidities 3 or More Number of Body Systems Impaired 4 or More Clinical Presentation at Evaluation Evolving Impairments Impairments Activity Tolerance,Balance, Functional Activities, Functional Mobility,Gait, Posture,Strength,Transfers Goals sit to stand Review Manager Goal (LTG) Pt will be able to complete at least 10 sit to stands in 30 sec to show improved strength and funcitonal ability. balance Review Manager Goal (LTG) Pt will be able to score at least 20/24 on DGI to show dec risk for falls. LTG Duration 11/18/21 strength Short Term Goal (STG) Pt will be indep w/HEP STG Duration 09/18/21 Review Manager Goal (LTG) Pt will score at least 4/5 on all LE MMT to show improved strengtht o improve pt's ability to participate in home activities. LTG Duration 11/18/21 walking Short Term Goal (STG) Pt willb e able to complete 2 min walk test w/o requriing seated rest break at least 160ft to show improved activity tolerance. STG Duration 09/27/21 Review Manager Goal (LTG) Pt will be able to complete 6 min walk test with distance of at least 450ft. 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 He is very weak and has lost his ability to live an active life like he used to 1.5 years ago (sailing, biking, hiking,w alking, traveling). His recovery is complicated by the 2 diagnoses that both cause weakness and he has treatments occuring w/each. He has very limited activity tolerance w/ limit of walking about 100ft prior to fatigue and requring seated rest break. Mult rest breaks were required during testing today. He has significant weakness and would benefit from skilled PT to work on progression of balance , gait, strength and imprvoing activity tolerance and functional ability. Physical Therapy Plan Frequency and Duration Frequency of Treatment 2x/Week Duration of Treatment 3 months Plan of Care Start Date 08/19/21 Plan of Care End Date 11/18/21 Therapeutic Interventions Therapeutic Interventions Aquatic Therapy,Balance Training,Gait Training,Home Exercise Program,Joint Mobilizations,Manual Therapy, Neuromuscular Re-education, Orthotic/Prosthetic Management ,Patient/Caregiver Education, Self-Care/Home Management,Soft Tissue Mobilization,Taping, Therapeutic Activities, Therapeutic Exercises Modalities Cold Pack/Ice Massage,Electric Stimulation,Hot Packs Next Visit Focus/Plan Next Note Type Treatment Note Next Visit Plan Give pt HEP: seated march, abd , knee flex, ext, sit<>stand, try DGI Plan of Care Dates Plan of Care Start Date 08/19/21 Plan of Care End Date 11/18/21 Electronically Signed by: Cydney Tracy, PT 08/19/21 [id number] Please Sign and Return: I have reviewed this Plan of Care and certify that the skilled therapy services above are required to meet the patient?s needs. Physician Signature Date Printed Name and Credentials Clinical Instructor Signature Printed Name and Credentials
--- NOTE | 2021-08-30 10:35 | PT.OTN ---
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 (Rec: 08/30/21 10:34 [facility] [id number]) Out-Patient Physical Therapy Visit Information Visit Information Visit Type Treatment Note Visit Note 01/06 Visit Start Time 09:46 Visit Stop Time 10:30 Total Visit Minutes 44 Visit Number 2 Number of BOAT ENGINE MECHANIC Visits 0 PT-OP-B Current Condition Start: 08/18/21 11:31 Freq: Status: Active Protocol: Document 08/19/21 07:38 [facility] (Rec: 08/19/21 10:23 [facility] [id number]) Current Condition History of Current Condition Onset Date 1.5 years ago Current Complaints weakness History of Current Condition Pt was diagonosed w/ myelofibrosis which comes w/ low hematocrit and platelets and has slowly dec frequency to 4 weeks ago. He had CyberHeart shot February 08 and developed Guillian Henderson Syndrome symptoms a few weeks later. He got his blood count done and was fine and was severe weakness. Severe weakness in legs and some in arms w/no reflexs and some facilitations whcih he doens't have it any more. He had infusions of immunoglobulin and it seemed to help a bit at first. He has an electric WC coming today that he paid for out of pocket that he plans to use when out of the house. He can recover from activity w/5 -10 min of rest. He has some ankle swelling that started aobut 6 months ago but labs have all been normal for possible CHF. Pt reports he gets SOB and weakness. He has postural hypotension. Pt reports some gradual minor memory loss. Pt has B hip replacement and a microdiscectomy L4-5. No falls . Pt sees Oncology every 3 weeks and gets a subcutaneous shot every 3 weeks which inc red blood cells. Prior to these diagnoses (1.5 years ago ), he was sailing, biking, tennis, hiking and walking. Pt reports he can cut about 3 roses then has to sit down d/t fatigue. His chores are very short. Indep w/ADLs. Can only walk 80ft before he has to rest. Prior Treatments and Tests No PT since all of this started Treatment Goals Patient/Caregiver Goals inc tolerance w/walking, inc endurance, be able to get up/ down from ground w/o outside support PT-OP-C Subjective Start: 08/18/21 11:31 Freq: Status: Active Protocol: Document 08/30/21 09:47 [facility] (Rec: 08/30/21 10:34 [facility] [id number]) OP-PT Subjective Patient Comments Patient Comments Pt reports hematocrit is low so may need an infusion PT-OP-D Balance Start: 08/18/21 11:31 Freq: Status: Active Protocol: Document 08/19/21 07:38 [facility] (Rec: 08/19/21 10:23 [facility] [id number]) Balance Tests Dunn Balance Test Dunn Balance Test Score 46/56 PT-OP-E Functional Tests Start: 08/18/21 11:31 Freq: Status: Active Protocol: Document 08/19/21 07:38 [facility] (Rec: 08/19/21 10:23 [facility] [id number]) Functional Tests 2 Minute Walk Test Distance 99ft Device Used reached for rails and exercise equipment in clinic Comments had to rest after 1 min 14 sec PT-OP-G Mobility & Gait Start: 08/18/21 11:31 Freq: Status: Active Protocol: Document 08/19/21 07:38 [facility] (Rec: 08/19/21 10:23 [facility] [id number]) OP Mobility Evaluation Bed Mobility Supine to and from Sit indep Transfers Sit to Stand able to sit to stand indep - chooses to use UEs but can w/o OP Gait Assessment Comments Gait Comments Amb with slow pace and dec push off PT-OP-M Strength Start: 08/18/21 11:31 Freq: Status: Active Protocol: Document 08/19/21 07:38 [facility] (Rec: 08/19/21 10:23 [facility] [id number]) Hip Strength Hip Manual Muscle Testing Right Flexion (L2) 3+ Fair+ Extension (S1) 2+ Poor+ Abduction 3+ Fair+ External Rotation 3+ Fair+ Internal Rotation 4- Good- Left Flexion (L2) 3+ Fair+ Extension (S1) 2+ Poor+ Abduction 3+ Fair+ External Rotation 3+ Fair+ Internal Rotation 4- Good- Comments goes into flex B w/abd testing Knee Strength Knee Manual Muscle Testing Right Flexion (S2) 4- Good- Extension (L3) 4+ Good+ Left Flexion (S2) 4- Good- Extension (L3) 4+ Good+ Ankle/Foot Strength Ankle and Foot Manual Muscle Testing Right Dorsiflexion (L4) 3+ Fair+ Plantarflexion (S1) 4+ Good+ Comments PF tested seated Left Dorsiflexion (L4) 4- Good- Plantarflexion (S1) 4+ Good+ PT-OP-Q Treatments Start: 08/18/21 11:31 Freq: Status: Active Protocol: Document 08/30/21 09:47 [facility] (Rec: 08/30/21 10:34 [facility] [id number]) Therapeutic Exercises Sitting Exercises march Side bilateral Equipment Used L2 Reps/Minutes 2x10 hip ER Side bilateral Equipment Used L2 Reps/Minutes 2x10 Standing Exercises hip ext Side bilateral Reps/Minutes 2x8 hip abd Side bilateral Reps/Minutes 2x6 march Side bilateral Reps/Minutes 10 Comments rail prn sit to stand Side bilateral Reps/Minutes 9 Comments hands out in front Neuro Re-Education Treatment Balance Activities foam Details WBOS & NBOS Surface EC & EO Other Activities DGI Details PT-OP-T Assessment and Plan Start: 08/18/21 11:31 Freq: Status: Active Protocol: Document 08/30/21 09:47 [facility] (Rec: 08/30/21 10:34 [facility] [id number]) Physical Therapy Assessment Goals sit to stand Usp Goal (LTG) Pt will be able to complete at least 10 sit to stands in 30 sec to show improved strength and funcitonal ability. balance Usp Goal (LTG) Pt will be able to score at least 20/24 on DGI to show dec risk for falls. LTG Duration 11/18/21 strength Short Term Goal (STG) Pt will be indep w/HEP STG Duration 09/18/21 Usp Goal (LTG) Pt will score at least 4/5 on all LE MMT to show improved strengtht o improve pt's ability to participate in home activities. LTG Duration 11/18/21 walking Short Term Goal (STG) Pt willb e able to complete 2 min walk test w/o requriing seated rest break at least 160ft to show improved activity tolerance. STG Duration 09/27/21 Usp Goal (LTG) Pt will be able to complete 6 min walk test with distance of at least 450ft. LTG Duration 11/18/21 Assessment Summary Assessment Pt did well with session with good challenge w/exercises and requriing rest breaks between sets and exercises epecialy when standing and exercising. he shows dec of balance w/DGI testing done today Physical Therapy Plan Frequency and Duration Frequency of Treatment 2x/Week Duration of Treatment 3 months Plan of Care Start Date 08/19/21 Plan of Care End Date 11/18/21 Next Visit Focus/Plan Next Note Type Treatment Note Next Visit Plan review HEP, balance and strength progression
--- NOTE | 2021-09-01 10:53 | PT.OTN ---
Addendum entered and electronically signed by Cydney Tracy PT 09/01/21 11:03: PT student instructed pt on exercises that PT had prior discussed w/student. PT involved in care and was there for direct supervision. Original Note: Current Diagnoses Guillain-Hartford syndrome (09/01/21) Muscle weakness (generalized) (09/01/21) Difficulty in walking, not elsewhere classified (09/01/21) Physical Therapy Treatment Note PT-OP-A Visit Information Start: 08/18/21 11:31 Freq: Status: Active Protocol: Document 09/01/21 10:32 JG (Rec: 09/01/21 10:50 J [id number]) Out-Patient Physical Therapy Visit Information Visit Information Visit Type Treatment Note Visit Note 02/03 Visit Start Time 09:47 Visit Stop Time 10:29 Total Visit Minutes 43 Visit Number 3 Number of JEWELRY DIPPER Visits 0 PT-OP-B Current Condition Start: 08/18/21 11:31 Freq: Status: Active Protocol: Document 08/19/21 07:38 [facility] (Rec: 08/19/21 10:23 [facility] [id number]) Current Condition History of Current Condition Onset Date 1.5 years ago Current Complaints weakness History of Current Condition Pt was diagonosed w/ myelofibrosis which comes w/ low hematocrit and platelets and has slowly dec frequency to 4 weeks ago. He had BackTrack shot February 08 and developed Guillian Hartford Syndrome symptoms a few weeks later. He got his blood count done and was fine and was severe weakness. Severe weakness in legs and some in arms w/no reflexs and some facilitations whcih he doens't have it any more. He had infusions of immunoglobulin and it seemed to help a bit at first. He has an electric WC coming today that he paid for out of pocket that he plans to use when out of the house. He can recover from activity w/5 -10 min of rest. He has some ankle swelling that started aobut 6 months ago but labs have all been normal for possible CHF. Pt reports he gets SOB and weakness. He has postural hypotension. Pt reports some gradual minor memory loss. Pt has B hip replacement and a microdiscectomy L4-5. No falls . Pt sees Oncology every 3 weeks and gets a subcutaneous shot every 3 weeks which inc red blood cells. Prior to these diagnoses (1.5 years ago ), he was sailing, biking, tennis, hiking and walking. Pt reports he can cut about 3 roses then has to sit down d/t fatigue. His chores are very short. Indep w/ADLs. Can only walk 80ft before he has to rest. Prior Treatments and Tests No PT since all of this started Treatment Goals Patient/Caregiver Goals inc tolerance w/walking, inc endurance, be able to get up/ down from ground w/o outside support PT-OP-C Subjective Start: 08/18/21 11:31 Freq: Status: Active Protocol: Document 09/01/21 10:32 JG (Rec: 09/01/21 10:50 JG [id number]) OP-PT Subjective Patient Comments Patient Comments Pt reports receiving an infusion yesterday and was tired afterwards PT-OP-D Balance Start: 08/18/21 11:31 Freq: Status: Active Protocol: Document 08/19/21 07:38 [facility] (Rec: 08/19/21 10:23 [facility] [id number]) Balance Tests Dunn Balance Test Dunn Balance Test Score 46/56 PT-OP-E Functional Tests Start: 08/18/21 11:31 Freq: Status: Active Protocol: Document 08/19/21 07:38 [facility] (Rec: 08/19/21 10:23 [facility] [id number]) Functional Tests 2 Minute Walk Test Distance 99ft Device Used reached for rails and exercise equipment in clinic Comments had to rest after 1 min 14 sec PT-OP-G Mobility & Gait Start: 08/18/21 11:31 Freq: Status: Active Protocol: Document 08/19/21 07:38 [facility] (Rec: 08/19/21 10:23 [facility] [id number]) OP Mobility Evaluation Bed Mobility Supine to and from Sit indep Transfers Sit to Stand able to sit to stand indep - chooses to use UEs but can w/o OP Gait Assessment Comments Gait Comments Amb with slow pace and dec push off PT-OP-M Strength Start: 08/18/21 11:31 Freq: Status: Active Protocol: Document 08/19/21 07:38 [facility] (Rec: 08/19/21 10:23 [facility] [id number]) Hip Strength Hip Manual Muscle Testing Right Flexion (L2) 3+ Fair+ Extension (S1) 2+ Poor+ Abduction 3+ Fair+ External Rotation 3+ Fair+ Internal Rotation 4- Good- Left Flexion (L2) 3+ Fair+ Extension (S1) 2+ Poor+ Abduction 3+ Fair+ External Rotation 3+ Fair+ Internal Rotation 4- Good- Comments goes into flex B w/abd testing Knee Strength Knee Manual Muscle Testing Right Flexion (S2) 4- Good- Extension (L3) 4+ Good+ Left Flexion (S2) 4- Good- Extension (L3) 4+ Good+ Ankle/Foot Strength Ankle and Foot Manual Muscle Testing Right Dorsiflexion (L4) 3+ Fair+ Plantarflexion (S1) 4+ Good+ Comments PF tested seated Left Dorsiflexion (L4) 4- Good- Plantarflexion (S1) 4+ Good+ PT-OP-Q Treatments Start: 08/18/21 11:31 Freq: Status: Active Protocol: Document 09/01/21 10:32 JG (Rec: 09/01/21 10:50 JGladys [id number]) Gym Equipment Shuttle Recovery Bilateral Squats Resistance 50 lbs Shuttle Recovery Platform Stable Reps/Time 1x20 Therapeutic Exercises Sitting Exercises march Side bilateral Equipment Used L2 Reps/Minutes 2x25 hip ER Side bilateral Equipment Used L2 Reps/Minutes 1x30 Standing Exercises hip ext Side bilateral Reps/Minutes 2x15 on right, 2x20 on left hip abd Side bilateral Reps/Minutes 2x12 on right, 2x15 on left Neuro Re-Education Treatment Balance Activities hurdles Details 6 hurdles step through gait Reps/Duration 4x Comments balancing on left leg more challenging, rail prn foam Details WBOS & NBOS Surface kim Equipment PRN parallel bars Reps/Duration 2x30 seconds Comments EC & EO PT-OP-T Assessment and Plan Start: 08/18/21 11:31 Freq: Status: Active Protocol: Document 09/01/21 10:32 JGladys (Rec: 09/01/21 10:50 JG [id number]) Physical Therapy Assessment Impairments Impairments Activity Tolerance,Balance, Functional Activities, Functional Mobility,Gait, Posture,Strength,Transfers Goals sit to stand Correction Goal (LTG) Pt will be able to complete at least 10 sit to stands in 30 sec to show improved strength and funcitonal ability. balance Custom Furrier Goal (LTG) Pt will be able to score at least 20/24 on DGI to show dec risk for falls. LTG Duration 11/18/21 strength Short Term Goal (STG) Pt will be indep w/HEP STG Duration 09/18/21 Correction Goal (LTG) Pt will score at least 4/5 on all LE MMT to show improved strengtht o improve pt's ability to participate in home activities. LTG Duration 11/18/21 walking Short Term Goal (STG) Pt willb e able to complete 2 min walk test w/o requriing seated rest break at least 160ft to show improved activity tolerance. STG Duration 09/27/21 Correction Goal (LTG) Pt will be able to complete 6 min walk test with distance of at least 450ft. LTG Duration 11/18/21 Assessment Summary Assessment Pt had increased endurance with exercises as displayed with increased reps. Pt continued requiring rest breaks in chair when SOB. Pt had min increase in SOB while in supine on the shuttle leg press. Physical Therapy Plan Frequency and Duration Frequency of Treatment 2x/Week Duration of Treatment 3 months Plan of Care Start Date 08/19/21 Plan of Care End Date 11/18/21 Next Visit Focus/Plan Next Note Type Treatment Note Next Visit Plan add supine and sidelying exercises as pt tolerated supine leg press well, amandeep in parallel bars
--- NOTE | 2021-09-06 08:59 | PT.OTN ---
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) Muscle weakness (generalized) (09/06/21) Difficulty in walking, not elsewhere classified (09/06/21) Physical Therapy Treatment Note PT-OP-A Visit Information Start: 08/18/21 11:31 Freq: Status: Active Protocol: Document 09/06/21 08:24 [facility] (Rec: 09/06/21 08:57 [facility] [id number]) Out-Patient Physical Therapy Visit Information Visit Information Visit Type Treatment Note Visit Note 03/06 Visit Start Time 08:15 Visit Stop Time 08:57 Total Visit Minutes 42 Visit Number 4 Number of OUTPATIENT PHLEBOTOMIST Visits 0 PT-OP-B Current Condition Start: 08/18/21 11:31 Freq: Status: Active Protocol: Document 08/19/21 07:38 [facility] (Rec: 08/19/21 10:23 [facility] [id number]) Current Condition History of Current Condition Onset Date 1.5 years ago Current Complaints weakness History of Current Condition Pt was diagonosed w/ myelofibrosis which comes w/ low hematocrit and platelets and has slowly dec frequency to 4 weeks ago. He had [employer] shot February 08 and developed Guillian [place] Syndrome symptoms a few weeks later. He got his blood count done and was fine and was severe weakness. Severe weakness in legs and some in arms w/no reflexs and some facilitations whcih he doens't have it any more. He had infusions of immunoglobulin and it seemed to help a bit at first. He has an electric WC coming today that he paid for out of pocket that he plans to use when out of the house. He can recover from activity w/5 -10 min of rest. He has some ankle swelling that started aobut 6 months ago but labs have all been normal for possible CHF. Pt reports he gets SOB and weakness. He has postural hypotension. Pt reports some gradual minor memory loss. Pt has B hip replacement and a microdiscectomy L4-5. No falls . Pt sees Oncology every 3 weeks and gets a subcutaneous shot every 3 weeks which inc red blood cells. Prior to these diagnoses (1.5 years ago ), he was sailing, biking, tennis, hiking and walking. Pt reports he can cut about 3 roses then has to sit down d/t fatigue. His chores are very short. Indep w/ADLs. Can only walk 80ft before he has to rest. Prior Treatments and Tests No PT since all of this started Treatment Goals Patient/Caregiver Goals inc tolerance w/walking, inc endurance, be able to get up/ down from ground w/o outside support PT-OP-C Subjective Start: 08/18/21 11:31 Freq: Status: Active Protocol: Document 09/06/21 08:24 [facility] (Rec: 09/06/21 08:57 [facility] [id number]) OP-PT Subjective Patient Comments Patient Comments Pt reports his imunoglobulin infusion last week feels like it helped. He has one Tu-Mon this week PT-OP-D Balance Start: 08/18/21 11:31 Freq: Status: Active Protocol: Document 08/19/21 07:38 [facility] (Rec: 08/19/21 10:23 [facility] [id number]) Balance Tests Dunn Balance Test Dunn Balance Test Score 46/56 PT-OP-E Functional Tests Start: 08/18/21 11:31 Freq: Status: Active Protocol: Document 08/19/21 07:38 [facility] (Rec: 08/19/21 10:23 [facility] [id number]) Functional Tests 2 Minute Walk Test Distance 99ft Device Used reached for rails and exercise equipment in clinic Comments had to rest after 1 min 14 sec PT-OP-G Mobility & Gait Start: 08/18/21 11:31 Freq: Status: Active Protocol: Document 08/19/21 07:38 [facility] (Rec: 08/19/21 10:23 [facility] [id number]) OP Mobility Evaluation Bed Mobility Supine to and from Sit indep Transfers Sit to Stand able to sit to stand indep - chooses to use UEs but can w/o OP Gait Assessment Comments Gait Comments Amb with slow pace and dec push off PT-OP-M Strength Start: 08/18/21 11:31 Freq: Status: Active Protocol: Document 08/19/21 07:38 [facility] (Rec: 08/19/21 10:23 [facility] [id number]) Hip Strength Hip Manual Muscle Testing Right Flexion (L2) 3+ Fair+ Extension (S1) 2+ Poor+ Abduction 3+ Fair+ External Rotation 3+ Fair+ Internal Rotation 4- Good- Left Flexion (L2) 3+ Fair+ Extension (S1) 2+ Poor+ Abduction 3+ Fair+ External Rotation 3+ Fair+ Internal Rotation 4- Good- Comments goes into flex B w/abd testing Knee Strength Knee Manual Muscle Testing Right Flexion (S2) 4- Good- Extension (L3) 4+ Good+ Left Flexion (S2) 4- Good- Extension (L3) 4+ Good+ Ankle/Foot Strength Ankle and Foot Manual Muscle Testing Right Dorsiflexion (L4) 3+ Fair+ Plantarflexion (S1) 4+ Good+ Comments PF tested seated Left Dorsiflexion (L4) 4- Good- Plantarflexion (S1) 4+ Good+ PT-OP-Q Treatments Start: 08/18/21 11:31 Freq: Status: Active Protocol: Document 09/06/21 08:24 [facility] (Rec: 09/06/21 08:57 [facility] [id number]) Gym Equipment Shuttle Recovery Bilateral Squats Resistance 75 lbs Shuttle Recovery Platform Stable Reps/Time 1x20 Therapeutic Exercises Supine Exercises SLR Side bilateral Reps/Minutes 2x10 bridge Side bilateral Reps/Minutes 5 sec x10 Sidelying Exercises abd Sidelying Exercise Name hip Side bilateral Reps/Minutes 15 clamshell Side bilateral Reps/Minutes 15 Standing Exercises heel raises Side bilateral Reps/Minutes 20 step up Side bilateral Equipment Used 5 in step Reps/Minutes 7 january Standing Exercise Name in place Side bilateral Reps/Minutes 15 Comments rail prn Neuro Re-Education Treatment Balance Activities staggered stance Surface firm Comments w/head turns hurdles Details 6 hurdles step through gait Reps/Duration 4x Comments rail prn PT-OP-T Assessment and Plan Start: 08/18/21 11:31 Freq: Status: Active Protocol: Document 09/06/21 08:24 [facility] (Rec: 09/06/21 08:57 [facility] [id number]) Physical Therapy Assessment Goals sit to stand Alf Goal (LTG) Pt will be able to complete at least 10 sit to stands in 30 sec to show improved strength and funcitonal ability. balance Alf Goal (LTG) Pt will be able to score at least 20/24 on DGI to show dec risk for falls. LTG Duration 11/18/21 strength Short Term Goal (STG) Pt will be indep w/HEP STG Duration 09/18/21 Alf Goal (LTG) Pt will score at least 4/5 on all LE MMT to show improved strengtht o improve pt's ability to participate in home activities. LTG Duration 11/18/21 walking Short Term Goal (STG) Pt willb e able to complete 2 min walk test w/o requriing seated rest break at least 160ft to show improved activity tolerance. STG Duration 09/27/21 Alf Goal (LTG) Pt will be able to complete 6 min walk test with distance of at least 450ft. LTG Duration 11/18/21 Assessment Summary Assessment Pt did well with exercises today but did show significantly greater ease w/ exercises laying down w/much less rest break required. w/ standing exercises, did have less rest time required Physical Therapy Plan Frequency and Duration Frequency of Treatment 2x/Week Duration of Treatment 3 months Plan of Care Start Date 08/19/21 Plan of Care End Date 11/18/21 Next Visit Focus/Plan Next Note Type Treatment Note Next Visit Plan review laying down exercises, cont to advance standing tolerance & strength
--- NOTE | 2021-09-14 11:17 | PT.OTN ---
Current Diagnoses Guillain-[place] syndrome (09/14/21) Muscle weakness (generalized) (09/14/21) Difficulty in walking, not elsewhere classified (09/14/21) Physical Therapy Treatment Note PT-OP-A Visit Information Start: 08/18/21 11:31 Freq: Status: Active Protocol: Document 09/14/21 10:40 [facility] (Rec: 09/14/21 11:13 [facility] [id number]) Out-Patient Physical Therapy Visit Information Visit Information Visit Type Treatment Note Visit Note 04/05 Visit Start Time 10:35 Visit Stop Time 11:15 Total Visit Minutes 40 Visit Number 5 Number of DIRECTOR SELECTION AND ADMINISTRATION Visits 0 PT-OP-B Current Condition Start: 08/18/21 11:31 Freq: Status: Active Protocol: Document 08/19/21 07:38 [facility] (Rec: 08/19/21 10:23 [facility] [id number]) Current Condition History of Current Condition Onset Date 1.5 years ago Current Complaints weakness History of Current Condition Pt was diagonosed w/ myelofibrosis which comes w/ low hematocrit and platelets and has slowly dec frequency to 4 weeks ago. 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 He got his blood count done and was fine and was severe weakness. Severe weakness in legs and some in arms w/no reflexs and some facilitations whcih he doens't have it any more. He had infusions of immunoglobulin and it seemed to help a bit at first. He has an electric WC coming today that he paid for out of pocket that he plans to use when out of the house. He can recover from activity w/5 -10 min of rest. He has some ankle swelling that started aobut 6 months ago but labs have all been normal for possible CHF. Pt reports he gets SOB and weakness. He has postural hypotension. Pt reports some gradual minor memory loss. Pt has B hip replacement and a microdiscectomy L4-5. No falls . Pt sees Oncology every 3 weeks and gets a subcutaneous shot every 3 weeks which inc red blood cells. Prior to these diagnoses (1.5 years ago ), he was sailing, biking, tennis, hiking and walking. Pt reports he can cut about 3 roses then has to sit down d/t fatigue. His chores are very short. Indep w/ADLs. Can only walk 80ft before he has to rest. Prior Treatments and Tests No PT since all of this started Treatment Goals Patient/Caregiver Goals inc tolerance w/walking, inc endurance, be able to get up/ down from ground w/o outside support PT-OP-C Subjective Start: 08/18/21 11:31 Freq: Status: Active Protocol: Document 09/14/21 10:40 [facility] (Rec: 09/14/21 11:13 [facility] [id number]) OP-PT Subjective Patient Comments Patient Comments Pt had 5 shots of imunoglobulin last week and improved Hct so no transfusion . PT-OP-D Balance Start: 08/18/21 11:31 Freq: Status: Active Protocol: Document 08/19/21 07:38 [facility] (Rec: 08/19/21 10:23 [facility] [id number]) Balance Tests Dunn Balance Test Dunn Balance Test Score 46/56 PT-OP-E Functional Tests Start: 08/18/21 11:31 Freq: Status: Active Protocol: Document 08/19/21 07:38 [facility] (Rec: 08/19/21 10:23 [facility] [id number]) Functional Tests 2 Minute Walk Test Distance 99ft Device Used reached for rails and exercise equipment in clinic Comments had to rest after 1 min 14 sec PT-OP-G Mobility & Gait Start: 08/18/21 11:31 Freq: Status: Active Protocol: Document 08/19/21 07:38 [facility] (Rec: 08/19/21 10:23 [facility] [id number]) OP Mobility Evaluation Bed Mobility Supine to and from Sit indep Transfers Sit to Stand able to sit to stand indep - chooses to use UEs but can w/o OP Gait Assessment Comments Gait Comments Amb with slow pace and dec push off PT-OP-M Strength Start: 08/18/21 11:31 Freq: Status: Active Protocol: Document 08/19/21 07:38 [facility] (Rec: 08/19/21 10:23 [facility] [id number]) Hip Strength Hip Manual Muscle Testing Right Flexion (L2) 3+ Fair+ Extension (S1) 2+ Poor+ Abduction 3+ Fair+ External Rotation 3+ Fair+ Internal Rotation 4- Good- Left Flexion (L2) 3+ Fair+ Extension (S1) 2+ Poor+ Abduction 3+ Fair+ External Rotation 3+ Fair+ Internal Rotation 4- Good- Comments goes into flex B w/abd testing Knee Strength Knee Manual Muscle Testing Right Flexion (S2) 4- Good- Extension (L3) 4+ Good+ Left Flexion (S2) 4- Good- Extension (L3) 4+ Good+ Ankle/Foot Strength Ankle and Foot Manual Muscle Testing Right Dorsiflexion (L4) 3+ Fair+ Plantarflexion (S1) 4+ Good+ Comments PF tested seated Left Dorsiflexion (L4) 4- Good- Plantarflexion (S1) 4+ Good+ PT-OP-Q Treatments Start: 08/18/21 11:31 Freq: Status: Active Protocol: Document 09/14/21 10:40 [facility] (Rec: 09/14/21 11:13 [facility] [id number]) Gym Equipment Shuttle Recovery Bilateral Squats Resistance 75 lbs, 100# Shuttle Recovery Platform Stable Reps/Time 20, 12x2 Therapeutic Ball seated Ball Size/Color 65 cm Body Position seated Comments 1. marches B x10 Therapeutic Exercises Supine Exercises SLR Side bilateral Reps/Minutes 2x12 bridge Side bilateral Reps/Minutes 5 sec x10 Sidelying Exercises reverse clam Side bilateral Reps/Minutes 15 abd Sidelying Exercise Name hip Side bilateral Reps/Minutes 2x12 clamshell Side bilateral Reps/Minutes 2x12 PT-OP-T Assessment and Plan Start: 08/18/21 11:31 Freq: Status: Active Protocol: Document 09/14/21 10:40 [facility] (Rec: 09/14/21 11:13 [facility] [id number]) Physical Therapy Assessment Goals sit to stand Intelligence Analyst Goal (LTG) Pt will be able to complete at least 10 sit to stands in 30 sec to show improved strength and funcitonal ability. balance Intelligence Analyst Goal (LTG) Pt will be able to score at least 20/24 on DGI to show dec risk for falls. LTG Duration 11/18/21 strength Short Term Goal (STG) Pt will be indep w/HEP STG Duration 09/18/21 Intelligence Analyst Goal (LTG) Pt will score at least 4/5 on all LE MMT to show improved strengtht o improve pt's ability to participate in home activities. LTG Duration 11/18/21 walking Short Term Goal (STG) Pt willb e able to complete 2 min walk test w/o requriing seated rest break at least 160ft to show improved activity tolerance. STG Duration 09/27/21 Jail Goal (LTG) Pt will be able to complete 6 min walk test with distance of at least 450ft. LTG Duration 11/18/21 Assessment Summary Assessment Pt BP was 130/68 after leg press and O2 93-97% during session and HR 85-92 throughout. Pt was more SOB today though so more time spent in laying down w/ exercises d/t SOB w/standing activity. Physical Therapy Plan Next Visit Focus/Plan Next Note Type Treatment Note Next Visit Plan cont to advance standing tolerance & strength
--- NOTE | 2021-09-16 09:47 | PT.OTN ---
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) Muscle weakness (generalized) (09/16/21) Difficulty in walking, not elsewhere classified (09/16/21) Physical Therapy Treatment Note PT-OP-A Visit Information Start: 08/18/21 11:31 Freq: Status: Active Protocol: Document 09/16/21 08:57 [facility] (Rec: 09/16/21 09:47 [facility] [id number]) Out-Patient Physical Therapy Visit Information Visit Information Visit Type Treatment Note Visit Note 05/06 Visit Start Time 09:03 Visit Stop Time 09:44 Total Visit Minutes 41 Visit Number 6 Number of APPRAISAL ANALYST Visits 0 PT-OP-B Current Condition Start: 08/18/21 11:31 Freq: Status: Active Protocol: Document 08/19/21 07:38 [facility] (Rec: 08/19/21 10:23 [facility] [id number]) Current Condition History of Current Condition Onset Date 1.5 years ago Current Complaints weakness History of Current Condition Pt was diagonosed w/ myelofibrosis which comes w/ low hematocrit and platelets and has slowly dec frequency to 4 weeks ago. 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 He got his blood count done and was fine and was severe weakness. Severe weakness in legs and some in arms w/no reflexs and some facilitations whcih he doens't have it any more. He had infusions of immunoglobulin and it seemed to help a bit at first. He has an electric WC coming today that he paid for out of pocket that he plans to use when out of the house. He can recover from activity w/5 -10 min of rest. He has some ankle swelling that started aobut 6 months ago but labs have all been normal for possible CHF. Pt reports he gets SOB and weakness. He has postural hypotension. Pt reports some gradual minor memory loss. Pt has B hip replacement and a microdiscectomy L4-5. No falls . Pt sees Oncology every 3 weeks and gets a subcutaneous shot every 3 weeks which inc red blood cells. Prior to these diagnoses (1.5 years ago ), he was sailing, biking, tennis, hiking and walking. Pt reports he can cut about 3 roses then has to sit down d/t fatigue. His chores are very short. Indep w/ADLs. Can only walk 80ft before he has to rest. Prior Treatments and Tests No PT since all of this started Treatment Goals Patient/Caregiver Goals inc tolerance w/walking, inc endurance, be able to get up/ down from ground w/o outside support PT-OP-C Subjective Start: 08/18/21 11:31 Freq: Status: Active Protocol: Document 09/16/21 08:57 [facility] (Rec: 09/16/21 09:47 [facility] [id number]) OP-PT Subjective Patient Comments Patient Comments Pt reports feeling about the same today. Has not gotten his blood work done or talked to MD yet. PT-OP-D Balance Start: 08/18/21 11:31 Freq: Status: Active Protocol: Document 08/19/21 07:38 [facility] (Rec: 08/19/21 10:23 [facility] [id number]) Balance Tests Dunn Balance Test Dunn Balance Test Score 46/56 PT-OP-E Functional Tests Start: 08/18/21 11:31 Freq: Status: Active Protocol: Document 08/19/21 07:38 [facility] (Rec: 08/19/21 10:23 [facility] [id number]) Functional Tests 2 Minute Walk Test Distance 99ft Device Used reached for rails and exercise equipment in clinic Comments had to rest after 1 min 14 sec PT-OP-G Mobility & Gait Start: 08/18/21 11:31 Freq: Status: Active Protocol: Document 08/19/21 07:38 [facility] (Rec: 08/19/21 10:23 [facility] [id number]) OP Mobility Evaluation Bed Mobility Supine to and from Sit indep Transfers Sit to Stand able to sit to stand indep - chooses to use UEs but can w/o OP Gait Assessment Comments Gait Comments Amb with slow pace and dec push off PT-OP-M Strength Start: 08/18/21 11:31 Freq: Status: Active Protocol: Document 08/19/21 07:38 [facility] (Rec: 08/19/21 10:23 [facility] [id number]) Hip Strength Hip Manual Muscle Testing Right Flexion (L2) 3+ Fair+ Extension (S1) 2+ Poor+ Abduction 3+ Fair+ External Rotation 3+ Fair+ Internal Rotation 4- Good- Left Flexion (L2) 3+ Fair+ Extension (S1) 2+ Poor+ Abduction 3+ Fair+ External Rotation 3+ Fair+ Internal Rotation 4- Good- Comments goes into flex B w/abd testing Knee Strength Knee Manual Muscle Testing Right Flexion (S2) 4- Good- Extension (L3) 4+ Good+ Left Flexion (S2) 4- Good- Extension (L3) 4+ Good+ Ankle/Foot Strength Ankle and Foot Manual Muscle Testing Right Dorsiflexion (L4) 3+ Fair+ Plantarflexion (S1) 4+ Good+ Comments PF tested seated Left Dorsiflexion (L4) 4- Good- Plantarflexion (S1) 4+ Good+ PT-OP-Q Treatments Start: 08/18/21 11:31 Freq: Status: Active Protocol: Document 09/16/21 08:57 [facility] (Rec: 09/16/21 09:47 [facility] [id number]) Gym Equipment Therapeutic Ball supine Ball Size/Color 75cm Comments 1.bridges w/calf on ball 2 sec hold x12 2. LTR B x12 ea 3. HS curls B x15 w/Lvl 1 tband at feet seated Ball Size/Color 75 cm Body Position seated Comments 1. marches B x10 2. kicks B x10 3. pelvic circles B x10 Therapeutic Exercises Supine Exercises SLR Side bilateral Reps/Minutes 15, 12 Sidelying Exercises reverse clam Side bilateral Equipment Used lvl 1 Reps/Minutes 15 abd Sidelying Exercise Name hip Side bilateral Reps/Minutes 20 clamshell Side bilateral Equipment Used lvl 1 Reps/Minutes 15 Sitting Exercises Knee flex Side bilateral Equipment Used L1 Reps/Minutes 12 ea knee ext Side bilateral Equipment Used L1 Reps/Minutes 20 ea PT-OP-T Assessment and Plan Start: 08/18/21 11:31 Freq: Status: Active Protocol: Document 09/16/21 08:57 [facility] (Rec: 09/16/21 09:47 [facility] [id number]) Physical Therapy Assessment Goals sit to stand Food Service Employee Goal (LTG) Pt will be able to complete at least 10 sit to stands in 30 sec to show improved strength and funcitonal ability. balance Food Service Employee Goal (LTG) Pt will be able to score at least 20/24 on DGI to show dec risk for falls. LTG Duration 11/18/21 strength Short Term Goal (STG) Pt will be indep w/HEP STG Duration 09/18/21 Intermediate Goal (LTG) Pt will score at least 4/5 on all LE MMT to show improved strengtht o improve pt's ability to participate in home activities. LTG Duration 11/18/21 walking Short Term Goal (STG) Pt willb e able to complete 2 min walk test w/o requriing seated rest break at least 160ft to show improved activity tolerance. STG Duration 09/27/21 Food Service Employee Goal (LTG) Pt will be able to complete 6 min walk test with distance of at least 450ft. LTG Duration 11/18/21 Assessment Summary Assessment BP in leg press position 148/ 78 and HR 95 and O2 95%. Pt encouraged to talk to re: feeling inc SOB this week and pt notes he will after today's appt. He does well with supine and seated exercises w/ o signifcant c/o SOB. No inc of symptoms during exercise but pt challenged by cecilio. Physical Therapy Plan Frequency and Duration Frequency of Treatment 2x/Week Duration of Treatment 3 months Plan of Care Start Date 08/19/21 Plan of Care End Date 11/18/21 Next Visit Focus/Plan Next Note Type Treatment Note Next Visit Plan cont to advance standing tolerance & strength
--- NOTE | 2021-09-21 09:47 | PT.OTN ---
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 (Rec: 09/21/21 09:47 [facility] [id number]) Out-Patient Physical Therapy Visit Information Visit Information Visit Type Treatment Note Visit Note 06/05 Visit Start Time 09:02 Visit Stop Time 09:44 Total Visit Minutes 42 Visit Number 7 Number of INTER COM SERVICER Visits 0 PT-OP-B Current Condition Start: 08/18/21 11:31 Freq: Status: Active Protocol: Document 08/19/21 07:38 [facility] (Rec: 08/19/21 10:23 [facility] [id number]) Current Condition History of Current Condition Onset Date 1.5 years ago Current Complaints weakness History of Current Condition Pt was diagonosed w/ myelofibrosis which comes w/ low hematocrit and platelets and has slowly dec frequency to 4 weeks ago. He had AIT shot February 08 and developed Guillian Barbeau Syndrome symptoms a few weeks later. He got his blood count done and was fine and was severe weakness. Severe weakness in legs and some in arms w/no reflexs and some facilitations whcih he doens't have it any more. He had infusions of immunoglobulin and it seemed to help a bit at first. He has an electric WC coming today that he paid for out of pocket that he plans to use when out of the house. He can recover from activity w/5 -10 min of rest. He has some ankle swelling that started aobut 6 months ago but labs have all been normal for possible CHF. Pt reports he gets SOB and weakness. He has postural hypotension. Pt reports some gradual minor memory loss. Pt has B hip replacement and a microdiscectomy L4-5. No falls . Pt sees Oncology every 3 weeks and gets a subcutaneous shot every 3 weeks which inc red blood cells. Prior to these diagnoses (1.5 years ago ), he was sailing, biking, tennis, hiking and walking. Pt reports he can cut about 3 roses then has to sit down d/t fatigue. His chores are very short. Indep w/ADLs. Can only walk 80ft before he has to rest. Prior Treatments and Tests No PT since all of this started Treatment Goals Patient/Caregiver Goals inc tolerance w/walking, inc endurance, be able to get up/ down from ground w/o outside support PT-OP-C Subjective Start: 08/18/21 11:31 Freq: Status: Active Protocol: Document 09/21/21 09:06 [facility] (Rec: 09/21/21 09:47 [facility] [id number]) OP-PT Subjective Patient Comments Patient Comments Pt reports all labs were normal for his typical numbers , so the doctor wasn't concerned. Still having SOB PT-OP-D Balance Start: 08/18/21 11:31 Freq: Status: Active Protocol: Document 08/19/21 07:38 [facility] (Rec: 08/19/21 10:23 [facility] [id number]) Balance Tests Dunn Balance Test Dunn Balance Test Score 46/56 PT-OP-E Functional Tests Start: 08/18/21 11:31 Freq: Status: Active Protocol: Document 08/19/21 07:38 [facility] (Rec: 08/19/21 10:23 [facility] [id number]) Functional Tests 2 Minute Walk Test Distance 99ft Device Used reached for rails and exercise equipment in clinic Comments had to rest after 1 min 14 sec PT-OP-G Mobility & Gait Start: 08/18/21 11:31 Freq: Status: Active Protocol: Document 08/19/21 07:38 [facility] (Rec: 08/19/21 10:23 [facility] [id number]) OP Mobility Evaluation Bed Mobility Supine to and from Sit indep Transfers Sit to Stand able to sit to stand indep - chooses to use UEs but can w/o OP Gait Assessment Comments Gait Comments Amb with slow pace and dec push off PT-OP-M Strength Start: 08/18/21 11:31 Freq: Status: Active Protocol: Document 08/19/21 07:38 [facility] (Rec: 08/19/21 10:23 [facility] [id number]) Hip Strength Hip Manual Muscle Testing Right Flexion (L2) 3+ Fair+ Extension (S1) 2+ Poor+ Abduction 3+ Fair+ External Rotation 3+ Fair+ Internal Rotation 4- Good- Left Flexion (L2) 3+ Fair+ Extension (S1) 2+ Poor+ Abduction 3+ Fair+ External Rotation 3+ Fair+ Internal Rotation 4- Good- Comments goes into flex B w/abd testing Knee Strength Knee Manual Muscle Testing Right Flexion (S2) 4- Good- Extension (L3) 4+ Good+ Left Flexion (S2) 4- Good- Extension (L3) 4+ Good+ Ankle/Foot Strength Ankle and Foot Manual Muscle Testing Right Dorsiflexion (L4) 3+ Fair+ Plantarflexion (S1) 4+ Good+ Comments PF tested seated Left Dorsiflexion (L4) 4- Good- Plantarflexion (S1) 4+ Good+ PT-OP-Q Treatments Start: 08/18/21 11:31 Freq: Status: Active Protocol: Document 09/21/21 09:06 [facility] (Rec: 09/21/21 09:47 [facility] [id number]) Gym Equipment Shuttle Recovery Bilateral Squats Resistance 125# Shuttle Recovery Platform Stable Reps/Time 2x12 Therapeutic Ball seated Ball Size/Color 75 cm Body Position seated Comments 1. marches B x10 2. kicks B x10 3. pelvic circles B x10 Neuro Re-Education Treatment Balance Activities hurdles Comments 1.6 hurdles step through fwd gait rail prn x4 2. side step over x1 B foam Surface blue Equipment PRN bar Comments 1.WBOS & NBOS EC & EO 2. marching EO x8 3. step ups to 4 in step w/ blue foam on top x5 B Self-Care/Home Management Treatment Education Other Education talk to re: referal to TERRAZZO TILE SETTER for swallowing being slightly difficult and to get incentive spirometer PT-OP-T Assessment and Plan Start: 08/18/21 11:31 Freq: Status: Active Protocol: Document 09/21/21 09:06 [facility] (Rec: 09/21/21 09:47 [facility] [id number]) Physical Therapy Assessment Goals sit to stand Group Home Goal (LTG) Pt will be able to complete at least 10 sit to stands in 30 sec to show improved strength and funcitonal ability. balance Oil Pipe Inspector Helper Goal (LTG) Pt will be able to score at least 20/24 on DGI to show dec risk for falls. LTG Duration 11/18/21 strength Short Term Goal (STG) Pt will be indep w/HEP STG Duration 09/18/21 Oil Pipe Inspector Helper Goal (LTG) Pt will score at least 4/5 on all LE MMT to show improved strengtht o improve pt's ability to participate in home activities. LTG Duration 11/18/21 walking Short Term Goal (STG) Pt willb e able to complete 2 min walk test w/o requriing seated rest break at least 160ft to show improved activity tolerance. STG Duration 09/27/21 Oil Pipe Inspector Helper Goal (LTG) Pt will be able to complete 6 min walk test with distance of at least 450ft. LTG Duration 11/18/21 Assessment Summary Assessment Pt was SOB w/standign exercises and would require rest breaks in between. His O2 is 95% or above w/exercise. He still is SOB w/ activity w/ o signfiicant exertion. Physical Therapy Plan Frequency and Duration Frequency of Treatment 2x/Week Duration of Treatment 3 months Plan of Care Start Date 08/19/21 Plan of Care End Date 11/18/21 Next Visit Focus/Plan Next Note Type Treatment Note Next Visit Plan cont to advance standing tolerance & strength
--- NOTE | 2021-09-23 10:01 | PT.OTN ---
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 (Rec: 09/23/21 10:01 [facility] [id number]) Out-Patient Physical Therapy Visit Information Visit Information Visit Type Treatment Note Visit Note 07/06 Visit Start Time 09:04 Visit Stop Time 09:45 Total Visit Minutes 41 Visit Number 8 Number of PIPELINE INSPECTOR Visits 0 PT-OP-B Current Condition Start: 08/18/21 11:31 Freq: Status: Active Protocol: Document 08/19/21 07:38 [facility] (Rec: 08/19/21 10:23 [facility] [id number]) Current Condition History of Current Condition Onset Date 1.5 years ago Current Complaints weakness History of Current Condition Pt was diagonosed w/ myelofibrosis which comes w/ low hematocrit and platelets and has slowly dec frequency to 4 weeks ago. He had [employer] shot February 08 and developed Guillian Dennis Syndrome symptoms a few weeks later. He got his blood count done and was fine and was severe weakness. Severe weakness in legs and some in arms w/no reflexs and some facilitations whcih he doens't have it any more. He had infusions of immunoglobulin and it seemed to help a bit at first. He has an electric WC coming today that he paid for out of pocket that he plans to use when out of the house. He can recover from activity w/5 -10 min of rest. He has some ankle swelling that started aobut 6 months ago but labs have all been normal for possible CHF. Pt reports he gets SOB and weakness. He has postural hypotension. Pt reports some gradual minor memory loss. Pt has B hip replacement and a microdiscectomy L4-5. No falls . Pt sees Oncology every 3 weeks and gets a subcutaneous shot every 3 weeks which inc red blood cells. Prior to these diagnoses (1.5 years ago ), he was sailing, biking, tennis, hiking and walking. Pt reports he can cut about 3 roses then has to sit down d/t fatigue. His chores are very short. Indep w/ADLs. Can only walk 80ft before he has to rest. Prior Treatments and Tests No PT since all of this started Treatment Goals Patient/Caregiver Goals inc tolerance w/walking, inc endurance, be able to get up/ down from ground w/o outside support PT-OP-C Subjective Start: 08/18/21 11:31 Freq: Status: Active Protocol: Document 09/23/21 09:09 [facility] (Rec: 09/23/21 10:01 [facility] [id number]) OP-PT Subjective Patient Comments Patient Comments Pt got his infusion of luspatercept yesterday and drank cran juice and felt much better getting out and did not have to take breaks getting to the car whereas getting in he took2 to get in. PT-OP-D Balance Start: 08/18/21 11:31 Freq: Status: Active Protocol: Document 08/19/21 07:38 [facility] (Rec: 08/19/21 10:23 [facility] [id number]) Balance Tests Dunn Balance Test Dunn Balance Test Score 46/56 PT-OP-E Functional Tests Start: 08/18/21 11:31 Freq: Status: Active Protocol: Document 08/19/21 07:38 [facility] (Rec: 08/19/21 10:23 [facility] [id number]) Functional Tests 2 Minute Walk Test Distance 99ft Device Used reached for rails and exercise equipment in clinic Comments had to rest after 1 min 14 sec PT-OP-G Mobility & Gait Start: 08/18/21 11:31 Freq: Status: Active Protocol: Document 08/19/21 07:38 [facility] (Rec: 08/19/21 10:23 [facility] [id number]) OP Mobility Evaluation Bed Mobility Supine to and from Sit indep Transfers Sit to Stand able to sit to stand indep - chooses to use UEs but can w/o OP Gait Assessment Comments Gait Comments Amb with slow pace and dec push off PT-OP-M Strength Start: 08/18/21 11:31 Freq: Status: Active Protocol: Document 08/19/21 07:38 [facility] (Rec: 08/19/21 10:23 [facility] [id number]) Hip Strength Hip Manual Muscle Testing Right Flexion (L2) 3+ Fair+ Extension (S1) 2+ Poor+ Abduction 3+ Fair+ External Rotation 3+ Fair+ Internal Rotation 4- Good- Left Flexion (L2) 3+ Fair+ Extension (S1) 2+ Poor+ Abduction 3+ Fair+ External Rotation 3+ Fair+ Internal Rotation 4- Good- Comments goes into flex B w/abd testing Knee Strength Knee Manual Muscle Testing Right Flexion (S2) 4- Good- Extension (L3) 4+ Good+ Left Flexion (S2) 4- Good- Extension (L3) 4+ Good+ Ankle/Foot Strength Ankle and Foot Manual Muscle Testing Right Dorsiflexion (L4) 3+ Fair+ Plantarflexion (S1) 4+ Good+ Comments PF tested seated Left Dorsiflexion (L4) 4- Good- Plantarflexion (S1) 4+ Good+ PT-OP-Q Treatments Start: 08/18/21 11:31 Freq: Status: Active Protocol: Document 09/23/21 09:09 [facility] (Rec: 09/23/21 10:01 [facility] [id number]) Gym Equipment Shuttle Recovery Bilateral Squats Shuttle Recovery Platform Stable Reps/Time 4x @ 125#, 2x12 100# Therapeutic Ball seated Ball Size/Color 75 cm Body Position seated Comments 1. marches B x20 2. kicks B x15 3. pelvic circles B x10 Neuro Re-Education Treatment Balance Activities head turns Reps/Duration 20ft x4 ea Comments 1. vertical head turns 2. horizontal head turns hurdles Comments 1.6 hurdles step through fwd gait rail prn x4 2. side step over x1 B foam Surface blue Equipment PRN bar Comments 1.WBOS & NBOS EC & EO 2. marching EO x8 3. step ups to 4 in step w/ blue foam on top x5 B 4. staggered stance PT-OP-T Assessment and Plan Start: 08/18/21 11:31 Freq: Status: Active Protocol: Document 09/23/21 09:09 [facility] (Rec: 09/23/21 10:01 [facility] [id number]) Physical Therapy Assessment Goals sit to stand Template Inspector Goal (LTG) Pt will be able to complete at least 10 sit to stands in 30 sec to show improved strength and funcitonal ability. balance Template Inspector Goal (LTG) Pt will be able to score at least 20/24 on DGI to show dec risk for falls. LTG Duration 11/18/21 strength Short Term Goal (STG) Pt will be indep w/HEP STG Duration 09/18/21 Snf Goal (LTG) Pt will score at least 4/5 on all LE MMT to show improved strengtht o improve pt's ability to participate in home activities. LTG Duration 11/18/21 walking Short Term Goal (STG) Pt willb e able to complete 2 min walk test w/o requriing seated rest break at least 160ft to show improved activity tolerance. STG Duration 09/27/21 Template Inspector Goal (LTG) Pt will be able to complete 6 min walk test with distance of at least 450ft. LTG Duration 11/18/21 Assessment Summary Assessment Pt tolerated more standing today with rest breaks between activities but did show inc standing tolerance as compared to the past week. He was fatigued more when doing leg press today so did not do as much weight as it was done at end of session vs begining. Physical Therapy Plan Frequency and Duration Frequency of Treatment 2x/Week Duration of Treatment 3 months Plan of Care Start Date 08/19/21 Plan of Care End Date 11/18/21 Next Visit Focus/Plan Next Note Type Treatment Note Next Visit Plan cont to advance standing tolerance & strength
--- NOTE | 2021-09-27 12:06 | PT.OTN ---
Current Diagnoses Guillain-[place] syndrome (09/27/21) Muscle weakness (generalized) (09/27/21) Difficulty in walking, not elsewhere classified (09/27/21) Physical Therapy Treatment Note PT-OP-A Visit Information Start: 08/18/21 11:31 Freq: Status: Active Protocol: Document 09/27/21 11:41 [facility] (Rec: 09/27/21 12:06 [facility] [id number]) Out-Patient Physical Therapy Visit Information Visit Information Visit Type Progress Note Visit Note 12/06 Visit Start Time 11:18 Visit Stop Time 12:00 Total Visit Minutes 42 Visit Number 9 Number of PROCUREMENT COORDINATOR Visits 0 PT-OP-B Current Condition Start: 08/18/21 11:31 Freq: Status: Active Protocol: Document 08/19/21 07:38 [facility] (Rec: 08/19/21 10:23 [facility] [id number]) Current Condition History of Current Condition Onset Date 1.5 years ago Current Complaints weakness History of Current Condition Pt was diagonosed w/ myelofibrosis which comes w/ low hematocrit and platelets and has slowly dec frequency to 4 weeks ago. He had [email or web address] shot February 08 and developed Guillian [place] Syndrome symptoms a few weeks later. He got his blood count done and was fine and was severe weakness. Severe weakness in legs and some in arms w/no reflexs and some facilitations whcih he doens't have it any more. He had infusions of immunoglobulin and it seemed to help a bit at first. He has an electric WC coming today that he paid for out of pocket that he plans to use when out of the house. He can recover from activity w/5 -10 min of rest. He has some ankle swelling that started aobut 6 months ago but labs have all been normal for possible CHF. Pt reports he gets SOB and weakness. He has postural hypotension. Pt reports some gradual minor memory loss. Pt has B hip replacement and a microdiscectomy L4-5. No falls . Pt sees Oncology every 3 weeks and gets a subcutaneous shot every 3 weeks which inc red blood cells. Prior to these diagnoses (1.5 years ago ), he was sailing, biking, tennis, hiking and walking. Pt reports he can cut about 3 roses then has to sit down d/t fatigue. His chores are very short. Indep w/ADLs. Can only walk 80ft before he has to rest. Prior Treatments and Tests No PT since all of this started Treatment Goals Patient/Caregiver Goals inc tolerance w/walking, inc endurance, be able to get up/ down from ground w/o outside support PT-OP-C Subjective Start: 08/18/21 11:31 Freq: Status: Active Protocol: Document 09/27/21 11:41 [facility] (Rec: 09/27/21 12:06 [facility] [id number]) OP-PT Subjective Patient Comments Patient Comments Pt reports he is feeling SOB again today. He got up later so still SOB from getting ready and getting here. PT-OP-D Balance Start: 08/18/21 11:31 Freq: Status: Active Protocol: Document 08/19/21 07:38 [facility] (Rec: 08/19/21 10:23 [facility] [id number]) Balance Tests Dunn Balance Test Dunn Balance Test Score 46/56 PT-OP-E Functional Tests Start: 08/18/21 11:31 Freq: Status: Active Protocol: Document 09/27/21 11:41 [facility] (Rec: 09/27/21 12:06 [facility] [id number]) Functional Tests 30 Second Sit to Stand Test Score 4 Five Times Sit to Stand Test Comments 21 sec to do 4 before quads fatigue PT-OP-G Mobility & Gait Start: 08/18/21 11:31 Freq: Status: Active Protocol: Document 08/19/21 07:38 [facility] (Rec: 08/19/21 10:23 [facility] [id number]) OP Mobility Evaluation Bed Mobility Supine to and from Sit indep Transfers Sit to Stand able to sit to stand indep - chooses to use UEs but can w/o OP Gait Assessment Comments Gait Comments Amb with slow pace and dec push off PT-OP-M Strength Start: 08/18/21 11:31 Freq: Status: Active Protocol: Document 09/27/21 11:41 [facility] (Rec: 09/27/21 12:06 [facility] [id number]) Hip Strength Hip Manual Muscle Testing Right Flexion (L2) 4- Good- Extension (S1) 2+ Poor+ Abduction 3+ Fair+ External Rotation 3+ Fair+ Internal Rotation 4+ Good+ Left Flexion (L2) 4- Good- Extension (S1) 2+ Poor+ Abduction 4- Good- External Rotation 3+ Fair+ Internal Rotation 4+ Good+ Comments goes into flex B w/abd testing Knee Strength Knee Manual Muscle Testing Right Flexion (S2) 4+ Good+ Extension (L3) 5 Normal Left Flexion (S2) 4+ Good+ Extension (L3) 5 Normal Ankle/Foot Strength Ankle and Foot Manual Muscle Testing Right Dorsiflexion (L4) 4- Good- Plantarflexion (S1) 5 Normal Comments PF tested seated Left Dorsiflexion (L4) 4- Good- Plantarflexion (S1) 4+ Good+ PT-OP-Q Treatments Start: 08/18/21 11:31 Freq: Status: Active Protocol: Document 09/27/21 11:41 [facility] (Rec: 09/27/21 12:06 [facility] [id number]) Gym Equipment Shuttle Recovery heel raises Resistance 50#, 62# Shuttle Recovery Platform Stable Reps/Time 2x20 Bilateral Squats Resistance 125# Shuttle Recovery Platform Stable Reps/Time 3x10 Therapeutic Ball seated Ball Size/Color 75 cm Body Position seated Comments 1. marches B x20 2. kicks B x15 3. pelvic circles B x10 4. sit backs w/PT holding legs x20 Therapeutic Exercises Standing Exercises sit to stand Side bilateral Reps/Minutes 2x4 Comments no hands Neuro Re-Education Treatment Balance Activities foam Surface blue Equipment PRN bar Comments staggered stance w/head turns PT-OP-T Assessment and Plan Start: 08/18/21 11:31 Freq: Status: Active Protocol: Document 09/27/21 11:41 [facility] (Rec: 09/27/21 12:06 [facility] [id number]) Physical Therapy Assessment Goals sit to stand Snf Goal (LTG) Pt will be able to complete at least 10 sit to stands in 30 sec to show improved strength and funcitonal ability. LTG Duration 11/18/21 balance Snf Goal (LTG) Pt will be able to score at least 20/24 on DGI to show dec risk for falls. LTG Duration 11/18/21 strength Short Term Goal (STG) Pt will be indep w/HEP STG Duration achieved progresssing as able Scrub Tech Goal (LTG) Pt will score at least 4/5 on all LE MMT to show improved strengtht o improve pt's ability to participate in home activities. 09/27-improving LTG Duration 11/18/21 walking Short Term Goal (STG) Pt willb e able to complete 2 min walk test w/o requriing seated rest break at least 160ft to show improved activity tolerance. 09/27-pt having difficulty w/ SOB more over past 2 weeks. Has been having testing done to determine reason STG Duration 09/27/21 Scrub Tech Goal (LTG) Pt will be able to complete 6 min walk test with distance of at least 450ft. LTG Duration 11/18/21 Assessment Summary Assessment Pt did well with seated exercises and is showing improvement in strength, but functional activities are limited d/t endurance. He is encouraged to discuss this SOB w/neurlogist to help determine cause. He was SOB even w/about 40ft of walking and/or static standing balance on foam pads. Physical Therapy Plan Frequency and Duration Frequency of Treatment 2x/Week Duration of Treatment 3 months Plan of Care Start Date 08/19/21 Plan of Care End Date 11/18/21 Next Visit Focus/Plan Next Note Type Treatment Note Next Visit Plan cont to advance standing tolerance & strength
--- NOTE | 2021-09-29 10:45 | PT-OP ANOTE ---
Called and left VM for next appt. on 10/04. Informed pt of openings with DIRECTOR OF COMMUNITY LIFE Cecile on Monday morning to get in two appts this week.
--- NOTE | 2021-10-04 12:12 | PT.OTN ---
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) Muscle weakness (generalized) (10/04/21) Difficulty in walking, not elsewhere classified (10/04/21) Physical Therapy Treatment Note PT-OP-A Visit Information Start: 08/18/21 11:31 Freq: Status: Active Protocol: Document 10/04/21 11:49 [facility] (Rec: 10/04/21 11:59 [facility] [id number]) Out-Patient Physical Therapy Visit Information Visit Information Visit Type Treatment Note Visit Note 01/06 Visit Start Time 11:19 Visit Stop Time 12:00 Total Visit Minutes 41 Visit Number 10 Number of DERRICK BARGE OPERATOR Visits 0 PT-OP-B Current Condition Start: 08/18/21 11:31 Freq: Status: Active Protocol: Document 08/19/21 07:38 [facility] (Rec: 08/19/21 10:23 [facility] [id number]) Current Condition History of Current Condition Onset Date 1.5 years ago Current Complaints weakness History of Current Condition Pt was diagonosed w/ myelofibrosis which comes w/ low hematocrit and platelets and has slowly dec frequency to 4 weeks ago. He had [employer] shot February 08 and developed Guillian [place] Syndrome symptoms a few weeks later. He got his blood count done and was fine and was severe weakness. Severe weakness in legs and some in arms w/no reflexs and some facilitations whcih he doens't have it any more. He had infusions of immunoglobulin and it seemed to help a bit at first. He has an electric WC coming today that he paid for out of pocket that he plans to use when out of the house. He can recover from activity w/5 -10 min of rest. He has some ankle swelling that started aobut 6 months ago but labs have all been normal for possible CHF. Pt reports he gets SOB and weakness. He has postural hypotension. Pt reports some gradual minor memory loss. Pt has B hip replacement and a microdiscectomy L4-5. No falls . Pt sees Oncology every 3 weeks and gets a subcutaneous shot every 3 weeks which inc red blood cells. Prior to these diagnoses (1.5 years ago ), he was sailing, biking, tennis, hiking and walking. Pt reports he can cut about 3 roses then has to sit down d/t fatigue. His chores are very short. Indep w/ADLs. Can only walk 80ft before he has to rest. Prior Treatments and Tests No PT since all of this started Treatment Goals Patient/Caregiver Goals inc tolerance w/walking, inc endurance, be able to get up/ down from ground w/o outside support PT-OP-C Subjective Start: 08/18/21 11:31 Freq: Status: Active Protocol: Document 10/04/21 11:49 [facility] (Rec: 10/04/21 11:59 [facility] [id number]) OP-PT Subjective Patient Comments Patient Comments Pt reports neurologist wants him to get a chest Xray and see his primary He is going to get that scheduled. PT-OP-D Balance Start: 08/18/21 11:31 Freq: Status: Active Protocol: Document 08/19/21 07:38 [facility] (Rec: 08/19/21 10:23 [facility] [id number]) Balance Tests Dunn Balance Test Dunn Balance Test Score 46/56 PT-OP-E Functional Tests Start: 08/18/21 11:31 Freq: Status: Active Protocol: Document 09/27/21 11:41 [facility] (Rec: 09/27/21 12:06 [facility] [id number]) Functional Tests 30 Second Sit to Stand Test Score 4 Five Times Sit to Stand Test Comments 21 sec to do 4 before quads fatigue PT-OP-G Mobility & Gait Start: 08/18/21 11:31 Freq: Status: Active Protocol: Document 08/19/21 07:38 [facility] (Rec: 08/19/21 10:23 [facility] [id number]) OP Mobility Evaluation Bed Mobility Supine to and from Sit indep Transfers Sit to Stand able to sit to stand indep - chooses to use UEs but can w/o OP Gait Assessment Comments Gait Comments Amb with slow pace and dec push off PT-OP-M Strength Start: 08/18/21 11:31 Freq: Status: Active Protocol: Document 09/27/21 11:41 [facility] (Rec: 09/27/21 12:06 [facility] [id number]) Hip Strength Hip Manual Muscle Testing Right Flexion (L2) 4- Good- Extension (S1) 2+ Poor+ Abduction 3+ Fair+ External Rotation 3+ Fair+ Internal Rotation 4+ Good+ Left Flexion (L2) 4- Good- Extension (S1) 2+ Poor+ Abduction 4- Good- External Rotation 3+ Fair+ Internal Rotation 4+ Good+ Comments goes into flex B w/abd testing Knee Strength Knee Manual Muscle Testing Right Flexion (S2) 4+ Good+ Extension (L3) 5 Normal Left Flexion (S2) 4+ Good+ Extension (L3) 5 Normal Ankle/Foot Strength Ankle and Foot Manual Muscle Testing Right Dorsiflexion (L4) 4- Good- Plantarflexion (S1) 5 Normal Comments PF tested seated Left Dorsiflexion (L4) 4- Good- Plantarflexion (S1) 4+ Good+ PT-OP-Q Treatments Start: 08/18/21 11:31 Freq: Status: Active Protocol: Document 10/04/21 11:49 [facility] (Rec: 10/04/21 11:59 [facility] [id number]) Gym Equipment Shuttle Recovery heel raises Resistance 62# Shuttle Recovery Platform Stable Reps/Time 2x10 Bilateral Squats Resistance 125# Shuttle Recovery Platform Stable Reps/Time 3x10 Therapeutic Ball seated Ball Size/Color 75 cm Body Position seated Comments 1. marches B x20 2. kicks B x15 3. pelvic circles B x10 Neuro Re-Education Treatment Balance Activities bosu Details standing balance w/rail Prn head turns Reps/Duration 50ft x2 ea Comments 1. vertical head turns 2. horizontal head turns hurdles Comments 1.6 hurdles step through fwd gait rail prn x4 2. side step over x1 B 3. spread apart over 40ft x2 PT-OP-T Assessment and Plan Start: 08/18/21 11:31 Freq: Status: Active Protocol: Document 10/04/21 11:49 [facility] (Rec: 10/04/21 11:59 [facility] [id number]) Physical Therapy Assessment Goals sit to stand Shelter Goal (LTG) Pt will be able to complete at least 10 sit to stands in 30 sec to show improved strength and funcitonal ability. LTG Duration 11/18/21 balance Shelter Goal (LTG) Pt will be able to score at least 20/24 on DGI to show dec risk for falls. LTG Duration 11/18/21 strength Short Term Goal (STG) Pt will be indep w/HEP STG Duration achieved progresssing as able Shelter Goal (LTG) Pt will score at least 4/5 on all LE MMT to show improved strengtht o improve pt's ability to participate in home activities. 09/27-improving LTG Duration 11/18/21 walking Short Term Goal (STG) Pt willb e able to complete 2 min walk test w/o requriing seated rest break at least 160ft to show improved activity tolerance. 09/27-pt having difficulty w/ SOB more over past 2 weeks. Has been having testing done to determine reason STG Duration 09/27/21 Shelter Goal (LTG) Pt will be able to complete 6 min walk test with distance of at least 450ft. LTG Duration 11/18/21 Assessment Summary Assessment Pt tolerated more standing activities. He Still did require rest breaks but did recover well enough in order to do more challenging balance Physical Therapy Plan Frequency and Duration Frequency of Treatment 2x/Week Duration of Treatment 3 months Plan of Care Start Date 08/19/21 Plan of Care End Date 11/18/21 Next Visit Focus/Plan Next Note Type Treatment Note Next Visit Plan cont to advance standing tolerance & strength
--- NOTE | 2021-10-07 16:39 | PT.OTN ---
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) Muscle weakness (generalized) (10/07/21) Difficulty in walking, not elsewhere classified (10/07/21) Physical Therapy Treatment Note PT-OP-A Visit Information Start: 08/18/21 11:31 Freq: Status: Active Protocol: Document 10/07/21 15:33 [facility] (Rec: 10/07/21 16:01 [facility] [id number]) Out-Patient Physical Therapy Visit Information Visit Information Visit Type Treatment Note Visit Note 02/03 Student PT was directly supervised by PT Visit Start Time 09:47 Visit Stop Time 10:30 Total Visit Minutes 43 Visit Number 11 Number of SENIOR REGULAT[employer] AFFA[employer] SPECIALIST Visits 0 PT-OP-B Current Condition Start: 08/18/21 11:31 Freq: Status: Active Protocol: Document 08/19/21 07:38 [facility] (Rec: 08/19/21 10:23 [facility] [id number]) Current Condition History of Current Condition Onset Date 1.5 years ago Current Complaints weakness History of Current Condition Pt was diagonosed w/ myelofibrosis which comes w/ low hematocrit and platelets and has slowly dec frequency to 4 weeks ago. 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 He got his blood count done and was fine and was severe weakness. Severe weakness in legs and some in arms w/no reflexs and some facilitations whcih he doens't have it any more. He had infusions of immunoglobulin and it seemed to help a bit at first. He has an electric WC coming today that he paid for out of pocket that he plans to use when out of the house. He can recover from activity w/5 -10 min of rest. He has some ankle swelling that started aobut 6 months ago but labs have all been normal for possible CHF. Pt reports he gets SOB and weakness. He has postural hypotension. Pt reports some gradual minor memory loss. Pt has B hip replacement and a microdiscectomy L4-5. No falls . Pt sees Oncology every 3 weeks and gets a subcutaneous shot every 3 weeks which inc red blood cells. Prior to these diagnoses (1.5 years ago ), he was sailing, biking, tennis, hiking and walking. Pt reports he can cut about 3 roses then has to sit down d/t fatigue. His chores are very short. Indep w/ADLs. Can only walk 80ft before he has to rest. Prior Treatments and Tests No PT since all of this started Treatment Goals Patient/Caregiver Goals inc tolerance w/walking, inc endurance, be able to get up/ down from ground w/o outside support PT-OP-C Subjective Start: 08/18/21 11:31 Freq: Status: Active Protocol: Document 10/07/21 15:33 [facility] (Rec: 10/07/21 16:01 [facility] [id number]) OP-PT Subjective Patient Comments Patient Comments Pt reports that he completed appointment neurologist at [facility] yesterday. The neurologist completed assessment and ordered numerous tests from specialists. Pt reported continuous SOB feeling with standing and walking. PT-OP-D Balance Start: 08/18/21 11:31 Freq: Status: Active Protocol: Document 08/19/21 07:38 [facility] (Rec: 08/19/21 10:23 [facility] [id number]) Balance Tests Dunn Balance Test Dunn Balance Test Score 46/56 PT-OP-E Functional Tests Start: 08/18/21 11:31 Freq: Status: Active Protocol: Document 09/27/21 11:41 [facility] (Rec: 09/27/21 12:06 [facility] [id number]) Functional Tests 30 Second Sit to Stand Test Score 4 Five Times Sit to Stand Test Comments 21 sec to do 4 before quads fatigue PT-OP-G Mobility & Gait Start: 08/18/21 11:31 Freq: Status: Active Protocol: Document 08/19/21 07:38 [facility] (Rec: 08/19/21 10:23 [facility] [id number]) OP Mobility Evaluation Bed Mobility Supine to and from Sit indep Transfers Sit to Stand able to sit to stand indep - chooses to use UEs but can w/o OP Gait Assessment Comments Gait Comments Amb with slow pace and dec push off PT-OP-M Strength Start: 08/18/21 11:31 Freq: Status: Active Protocol: Document 09/27/21 11:41 [facility] (Rec: 09/27/21 12:06 [facility] [id number]) Hip Strength Hip Manual Muscle Testing Right Flexion (L2) 4- Good- Extension (S1) 2+ Poor+ Abduction 3+ Fair+ External Rotation 3+ Fair+ Internal Rotation 4+ Good+ Left Flexion (L2) 4- Good- Extension (S1) 2+ Poor+ Abduction 4- Good- External Rotation 3+ Fair+ Internal Rotation 4+ Good+ Comments goes into flex B w/abd testing Knee Strength Knee Manual Muscle Testing Right Flexion (S2) 4+ Good+ Extension (L3) 5 Normal Left Flexion (S2) 4+ Good+ Extension (L3) 5 Normal Ankle/Foot Strength Ankle and Foot Manual Muscle Testing Right Dorsiflexion (L4) 4- Good- Plantarflexion (S1) 5 Normal Comments PF tested seated Left Dorsiflexion (L4) 4- Good- Plantarflexion (S1) 4+ Good+ PT-OP-Q Treatments Start: 08/18/21 11:31 Freq: Status: Active Protocol: Document 10/07/21 15:33 [facility] (Rec: 10/07/21 16:01 [id number]) Gym Equipment Shuttle Recovery heel raises Resistance 62# Shuttle Recovery Platform Stable Reps/Time 2x10 Bilateral Squats Resistance 125# Shuttle Recovery Platform Stable Reps/Time 2x10, 1x8 Therapeutic Ball seated Ball Size/Color 75 cm Body Position seated Comments 1. marches B 1x10 2. pelvic circles B 1x20 Neuro Re-Education Treatment Balance Activities head turns Reps/Duration 1x50ft each Comments 1. horizontal head turns 2. vertical head turns rest btw hurdles Equipment hurdles, gait belt Comments 1. 6 hurdles step through fwd gait rail prn x6 2. side step over 2x8 foam Surface blue Equipment PRN bar Comments NBOS, EC PT-OP-T Assessment and Plan Start: 08/18/21 11:31 Freq: Status: Active Protocol: Document 10/07/21 15:33 [facility] (Rec: 10/07/21 16:01 [id number]) Physical Therapy Assessment Goals sit to stand Half-Way Goal (LTG) Pt will be able to complete at least 10 sit to stands in 30 sec to show improved strength and funcitonal ability. LTG Duration 11/18/21 balance Half-Way Goal (LTG) Pt will be able to score at least 20/24 on DGI to show dec risk for falls. LTG Duration 11/18/21 strength Short Term Goal (STG) Pt will be indep w/HEP STG Duration achieved progresssing as able Half-Way Goal (LTG) Pt will score at least 4/5 on all LE MMT to show improved strengtht o improve pt's ability to participate in home activities. 09/27-improving LTG Duration 11/18/21 walking Short Term Goal (STG) Pt willb e able to complete 2 min walk test w/o requriing seated rest break at least 160ft to show improved activity tolerance. 09/27-pt having difficulty w/ SOB more over past 2 weeks. Has been having testing done to determine reason STG Duration 09/27/21 Half-Way Goal (LTG) Pt will be able to complete 6 min walk test with distance of at least 450ft. LTG Duration 11/18/21 Assessment Summary Assessment Pt did well with hurdles, standing balance, and walking exercises and managed SOB with rest breaks. Pt did very well with shuttle exercises as they did not appear to increase his SOB as much as standing exercises. Pt appeared to do better with exercise form on the 2nd set compared to 1st set. Physical Therapy Plan Frequency and Duration Frequency of Treatment 2x/Week Duration of Treatment 3 months Plan of Care Start Date 08/19/21 Plan of Care End Date 11/18/21 Next Visit Focus/Plan Next Note Type Treatment Note Next Visit Plan cont progressing and challenging endurance with standing and walking exercises
--- NOTE | 2021-10-11 11:04 | PT.OTN ---
Current Diagnoses Guillain-[place] syndrome (10/11/21) Muscle weakness (generalized) (10/11/21) Difficulty in walking, not elsewhere classified (10/11/21) Physical Therapy Treatment Note PT-OP-A Visit Information Start: 08/18/21 11:31 Freq: Status: Active Protocol: Document 10/11/21 10:11 [facility] (Rec: 10/11/21 11:04 [facility] [id number]) Out-Patient Physical Therapy Visit Information Visit Information Visit Type Treatment Note Visit Note 03/06 Visit Start Time 10:15 Visit Stop Time 10:55 Total Visit Minutes 40 Visit Number 12 Number of STAB SETTER AND DRILLER Visits 1 PT-OP-B Current Condition Start: 08/18/21 11:31 Freq: Status: Active Protocol: Document 08/19/21 07:38 [facility] (Rec: 08/19/21 10:23 [facility] [id number]) Current Condition History of Current Condition Onset Date 1.5 years ago Current Complaints weakness History of Current Condition Pt was diagonosed w/ myelofibrosis which comes w/ low hematocrit and platelets and has slowly dec frequency to 4 weeks ago. 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 He got his blood count done and was fine and was severe weakness. Severe weakness in legs and some in arms w/no reflexs and some facilitations whcih he doens't have it any more. He had infusions of immunoglobulin and it seemed to help a bit at first. He has an electric WC coming today that he paid for out of pocket that he plans to use when out of the house. He can recover from activity w/5 -10 min of rest. He has some ankle swelling that started aobut 6 months ago but labs have all been normal for possible CHF. Pt reports he gets SOB and weakness. He has postural hypotension. Pt reports some gradual minor memory loss. Pt has B hip replacement and a microdiscectomy L4-5. No falls . Pt sees Oncology every 3 weeks and gets a subcutaneous shot every 3 weeks which inc red blood cells. Prior to these diagnoses (1.5 years ago ), he was sailing, biking, tennis, hiking and walking. Pt reports he can cut about 3 roses then has to sit down d/t fatigue. His chores are very short. Indep w/ADLs. Can only walk 80ft before he has to rest. Prior Treatments and Tests No PT since all of this started Treatment Goals Patient/Caregiver Goals inc tolerance w/walking, inc endurance, be able to get up/ down from ground w/o outside support PT-OP-C Subjective Start: 08/18/21 11:31 Freq: Status: Active Protocol: Document 10/11/21 10:11 [facility] (Rec: 10/11/21 11:04 [facility] [id number]) OP-PT Subjective Patient Comments Patient Comments Pt reports he is not doing well this morning but doesn't know why. He is going to stop his immunizations because he believes the side affects are part of the reason for SOB. PT-OP-D Balance Start: 08/18/21 11:31 Freq: Status: Active Protocol: Document 08/19/21 07:38 [facility] (Rec: 08/19/21 10:23 [facility] [id number]) Balance Tests Dunn Balance Test Dunn Balance Test Score 46/56 PT-OP-E Functional Tests Start: 08/18/21 11:31 Freq: Status: Active Protocol: Document 09/27/21 11:41 [facility] (Rec: 09/27/21 12:06 [facility] [id number]) Functional Tests 30 Second Sit to Stand Test Score 4 Five Times Sit to Stand Test Comments 21 sec to do 4 before quads fatigue PT-OP-G Mobility & Gait Start: 08/18/21 11:31 Freq: Status: Active Protocol: Document 08/19/21 07:38 [facility] (Rec: 08/19/21 10:23 [facility] [id number]) OP Mobility Evaluation Bed Mobility Supine to and from Sit indep Transfers Sit to Stand able to sit to stand indep - chooses to use UEs but can w/o OP Gait Assessment Comments Gait Comments Amb with slow pace and dec push off PT-OP-M Strength Start: 08/18/21 11:31 Freq: Status: Active Protocol: Document 09/27/21 11:41 [facility] (Rec: 09/27/21 12:06 [facility] [id number]) Hip Strength Hip Manual Muscle Testing Right Flexion (L2) 4- Good- Extension (S1) 2+ Poor+ Abduction 3+ Fair+ External Rotation 3+ Fair+ Internal Rotation 4+ Good+ Left Flexion (L2) 4- Good- Extension (S1) 2+ Poor+ Abduction 4- Good- External Rotation 3+ Fair+ Internal Rotation 4+ Good+ Comments goes into flex B w/abd testing Knee Strength Knee Manual Muscle Testing Right Flexion (S2) 4+ Good+ Extension (L3) 5 Normal Left Flexion (S2) 4+ Good+ Extension (L3) 5 Normal Ankle/Foot Strength Ankle and Foot Manual Muscle Testing Right Dorsiflexion (L4) 4- Good- Plantarflexion (S1) 5 Normal Comments PF tested seated Left Dorsiflexion (L4) 4- Good- Plantarflexion (S1) 4+ Good+ PT-OP-Q Treatments Start: 08/18/21 11:31 Freq: Status: Active Protocol: Document 10/11/21 10:11 [facility] (Rec: 10/11/21 11:04 [facility] [id number]) Gym Equipment Shuttle Recovery heel raises Resistance 62# Shuttle Recovery Platform Stable Reps/Time 2x10 Bilateral Squats Resistance 125# Shuttle Recovery Platform Stable Reps/Time 3x10 Therapeutic Ball seated Ball Size/Color 75 cm Body Position seated Comments 1. marches B 1x10 2. pelvic circles B 1x20 3. LAQ x10 (Min a) Therapeutic Exercises Standing Exercises sit to stand Side bilateral Reps/Minutes 2x5 Comments no hands Neuro Re-Education Treatment Balance Activities head turns Reps/Duration 2x50ft each Comments 1. horizontal head turns 2. vertical head turns rest btw hurdles Equipment hurdles, gait belt Comments 1. 6 hurdles step through fwd gait rail prn x6 2. side step over 2x8 PT-OP-T Assessment and Plan Start: 08/18/21 11:31 Freq: Status: Active Protocol: Document 10/11/21 10:11 [facility] (Rec: 10/11/21 11:04 [facility] [id number]) Physical Therapy Assessment Goals sit to stand Correction Goal (LTG) Pt will be able to complete at least 10 sit to stands in 30 sec to show improved strength and funcitonal ability. LTG Duration 11/18/21 balance Correction Goal (LTG) Pt will be able to score at least 20/24 on DGI to show dec risk for falls. LTG Duration 11/18/21 strength Short Term Goal (STG) Pt will be indep w/HEP STG Duration achieved progresssing as able Correction Goal (LTG) Pt will score at least 4/5 on all LE MMT to show improved strengtht o improve pt's ability to participate in home activities. 09/27-improving LTG Duration 11/18/21 walking Short Term Goal (STG) Pt willb e able to complete 2 min walk test w/o requriing seated rest break at least 160ft to show improved activity tolerance. 09/27-pt having difficulty w/ SOB more over past 2 weeks. Has been having testing done to determine reason STG Duration 09/27/21 Correction Goal (LTG) Pt will be able to complete 6 min walk test with distance of at least 450ft. LTG Duration 11/18/21 Assessment Summary Assessment Goldy had no balance issues during head turns but does tend to slow gait speed when dual tasking. He requires frequent rest breaks for SOB but is able to complete 3x10 with 125# on the leg press at end of session . Physical Therapy Plan Frequency and Duration Frequency of Treatment 2x/Week Duration of Treatment 3 months Plan of Care Start Date 08/19/21 Plan of Care End Date 11/18/21 Therapeutic Interventions Therapeutic Interventions Aquatic Therapy,Balance Training,Gait Training,Home Exercise Program,Joint Mobilizations,Manual Therapy, Neuromuscular Re-education, Orthotic/Prosthetic Management ,Patient/Caregiver Education, Self-Care/Home Management,Soft Tissue Mobilization,Taping, Therapeutic Activities, Therapeutic Exercises Modalities Cold Pack/Ice Massage,Electric Stimulation,Hot Packs Next Visit Focus/Plan Next Note Type Treatment Note Next Visit Plan cont progressing and challenging endurance with standing and walking exercises
--- NOTE | 2021-10-15 13:07 | PT.OTN ---
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) Muscle weakness (generalized) (10/15/21) Difficulty in walking, not elsewhere classified (10/15/21) Physical Therapy Treatment Note PT-OP-A Visit Information Start: 08/18/21 11:31 Freq: Status: Active Protocol: Document 10/15/21 12:05 MA (Rec: 10/15/21 13:07 MA [id number]) Out-Patient Physical Therapy Visit Information Visit Information Visit Type Treatment Note Visit Note 04/05 Visit Start Time 12:03 Visit Stop Time 12:45 Total Visit Minutes 42 Visit Number 13 Number of RIBBON BLOCKER Visits 2 PT-OP-B Current Condition Start: 08/18/21 11:31 Freq: Status: Active Protocol: Document 08/19/21 07:38 [facility] (Rec: 08/19/21 10:23 [facility] [id number]) Current Condition History of Current Condition Onset Date 1.5 years ago Current Complaints weakness History of Current Condition Pt was diagonosed w/ myelofibrosis which comes w/ low hematocrit and platelets and has slowly dec frequency to 4 weeks ago. He had fypio shot February 08 and developed Guillian [place] Syndrome symptoms a few weeks later. He got his blood count done and was fine and was severe weakness. Severe weakness in legs and some in arms w/no reflexs and some facilitations whcih he doens't have it any more. He had infusions of immunoglobulin and it seemed to help a bit at first. He has an electric WC coming today that he paid for out of pocket that he plans to use when out of the house. He can recover from activity w/5 -10 min of rest. He has some ankle swelling that started aobut 6 months ago but labs have all been normal for possible CHF. Pt reports he gets SOB and weakness. He has postural hypotension. Pt reports some gradual minor memory loss. Pt has B hip replacement and a microdiscectomy L4-5. No falls . Pt sees Oncology every 3 weeks and gets a subcutaneous shot every 3 weeks which inc red blood cells. Prior to these diagnoses (1.5 years ago ), he was sailing, biking, tennis, hiking and walking. Pt reports he can cut about 3 roses then has to sit down d/t fatigue. His chores are very short. Indep w/ADLs. Can only walk 80ft before he has to rest. Prior Treatments and Tests No PT since all of this started Treatment Goals Patient/Caregiver Goals inc tolerance w/walking, inc endurance, be able to get up/ down from ground w/o outside support PT-OP-C Subjective Start: 08/18/21 11:31 Freq: Status: Active Protocol: Document 10/15/21 12:05 MA (Rec: 10/15/21 13:07 MA [id number]) OP-PT Subjective Patient Comments Patient Comments Pt is still SOB but not lightheaded when standing since stopping injections. PT-OP-D Balance Start: 08/18/21 11:31 Freq: Status: Active Protocol: Document 08/19/21 07:38 [facility] (Rec: 08/19/21 10:23 [facility] [id number]) Balance Tests Dunn Balance Test Dunn Balance Test Score 46/56 PT-OP-E Functional Tests Start: 08/18/21 11:31 Freq: Status: Active Protocol: Document 09/27/21 11:41 [facility] (Rec: 09/27/21 12:06 [facility] [id number]) Functional Tests 30 Second Sit to Stand Test Score 4 Five Times Sit to Stand Test Comments 21 sec to do 4 before quads fatigue PT-OP-G Mobility & Gait Start: 08/18/21 11:31 Freq: Status: Active Protocol: Document 08/19/21 07:38 [facility] (Rec: 08/19/21 10:23 [facility] [id number]) OP Mobility Evaluation Bed Mobility Supine to and from Sit indep Transfers Sit to Stand able to sit to stand indep - chooses to use UEs but can w/o OP Gait Assessment Comments Gait Comments Amb with slow pace and dec push off PT-OP-M Strength Start: 08/18/21 11:31 Freq: Status: Active Protocol: Document 09/27/21 11:41 [facility] (Rec: 09/27/21 12:06 [facility] [id number]) Hip Strength Hip Manual Muscle Testing Right Flexion (L2) 4- Good- Extension (S1) 2+ Poor+ Abduction 3+ Fair+ External Rotation 3+ Fair+ Internal Rotation 4+ Good+ Left Flexion (L2) 4- Good- Extension (S1) 2+ Poor+ Abduction 4- Good- External Rotation 3+ Fair+ Internal Rotation 4+ Good+ Comments goes into flex B w/abd testing Knee Strength Knee Manual Muscle Testing Right Flexion (S2) 4+ Good+ Extension (L3) 5 Normal Left Flexion (S2) 4+ Good+ Extension (L3) 5 Normal Ankle/Foot Strength Ankle and Foot Manual Muscle Testing Right Dorsiflexion (L4) 4- Good- Plantarflexion (S1) 5 Normal Comments PF tested seated Left Dorsiflexion (L4) 4- Good- Plantarflexion (S1) 4+ Good+ PT-OP-Q Treatments Start: 08/18/21 11:31 Freq: Status: Active Protocol: Document 10/15/21 12:05 MA (Rec: 10/15/21 13:07 MA [id number]) Gym Equipment Shuttle Recovery Bilateral Squats Resistance 125# Shuttle Recovery Platform Stable Reps/Time 2x10, 1x11 Therapeutic Exercises Standing Exercises sit to stand Standing Exercise Name pt able to complete 8 before needing a break Side bilateral Reps/Minutes x8 Comments no hands Gait Training Gait Activity 2 min walk test Description 2 min walk test Device Used None Level of Assistance None Surface smooth Distance/Duration 158 ft x2 Treatment Focus endurance Comments pt able to complete 1 min 15 seconds 2 times, walking 158 ft ea time before requiring seated rest break Neuro Re-Education Treatment Balance Activities rocker board Equipment rocker board Comments 1. EC trails standing both fwd and lateral foam Surface blue Equipment PRN bar Comments NBOS 1. head turns 2. EC PT-OP-T Assessment and Plan Start: 08/18/21 11:31 Freq: Status: Active Protocol: Document 10/15/21 12:05 MA (Rec: 10/15/21 13:07 MA [id number]) Physical Therapy Assessment Goals sit to stand Mat Cutter Goal (LTG) Pt will be able to complete at least 10 sit to stands in 30 sec to show improved strength and funcitonal ability. LTG Duration 11/18/21 balance Nursing Home Goal (LTG) Pt will be able to score at least 20/24 on DGI to show dec risk for falls. LTG Duration 11/18/21 strength Short Term Goal (STG) Pt will be indep w/HEP STG Duration achieved progresssing as able Nursing Home Goal (LTG) Pt will score at least 4/5 on all LE MMT to show improved strengtht o improve pt's ability to participate in home activities. 09/27-improving LTG Duration 11/18/21 walking Short Term Goal (STG) Pt willb e able to complete 2 min walk test w/o requriing seated rest break at least 160ft to show improved activity tolerance. 09/27-pt having difficulty w/ SOB more over past 2 weeks. Has been having testing done to determine reason STG Duration 09/27/21 Mat Cutter Goal (LTG) Pt will be able to complete 6 min walk test with distance of at least 450ft. LTG Duration 11/18/21 Assessment Summary Assessment Pt feels his dizziness upon standing is getting better since stopping his subcutaneous shot but BP continues to drop. Seated BP at start of session is 127/76 mmHg, which drops to 105/60 mmHg upon standing. Pt is unable to complete 2 min walk test and completes 158 ft in 1 min 15 seconds before requiring seated break. He is able to complete 8 sit<>stands this session before requiring break vs 5 sit<>stands last session. Physical Therapy Plan Frequency and Duration Frequency of Treatment 2x/Week Duration of Treatment 3 months Plan of Care Start Date 08/19/21 Plan of Care End Date 11/18/21 Therapeutic Interventions Therapeutic Interventions Aquatic Therapy,Balance Training,Gait Training,Home Exercise Program,Joint Mobilizations,Manual Therapy, Neuromuscular Re-education, Orthotic/Prosthetic Management ,Patient/Caregiver Education, Self-Care/Home Management,Soft Tissue Mobilization,Taping, Therapeutic Activities, Therapeutic Exercises Modalities Cold Pack/Ice Massage,Electric Stimulation,Hot Packs Next Visit Focus/Plan Next Note Type Treatment Note Next Visit Plan cont progressing and challenging endurance with standing and walking exercises
--- NOTE | 2021-10-18 12:11 | PT.OTN ---
Current Diagnoses Guillain-[place] syndrome (10/18/21) Muscle weakness (generalized) (10/18/21) Difficulty in walking, not elsewhere classified (10/18/21) Physical Therapy Treatment Note PT-OP-A Visit Information Start: 08/18/21 11:31 Freq: Status: Active Protocol: Document 10/18/21 11:22 [facility] (Rec: 10/18/21 11:57 [facility] [id number]) Out-Patient Physical Therapy Visit Information Visit Information Visit Type Treatment Note Visit Note 05/06 Visit Start Time 11:17 Visit Stop Time 12:00 Total Visit Minutes 43 Visit Number 14 Number of SHANK SORTER Visits 0 PT-OP-B Current Condition Start: 08/18/21 11:31 Freq: Status: Active Protocol: Document 08/19/21 07:38 [facility] (Rec: 08/19/21 10:23 [facility] [id number]) Current Condition History of Current Condition Onset Date 1.5 years ago Current Complaints weakness History of Current Condition Pt was diagonosed w/ myelofibrosis which comes w/ low hematocrit and platelets and has slowly dec frequency to 4 weeks ago. He had NeXplore shot February 08 and developed Guillian [place] Syndrome symptoms a few weeks later. He got his blood count done and was fine and was severe weakness. Severe weakness in legs and some in arms w/no reflexs and some facilitations whcih he doens't have it any more. He had infusions of immunoglobulin and it seemed to help a bit at first. He has an electric WC coming today that he paid for out of pocket that he plans to use when out of the house. He can recover from activity w/5 -10 min of rest. He has some ankle swelling that started aobut 6 months ago but labs have all been normal for possible CHF. Pt reports he gets SOB and weakness. He has postural hypotension. Pt reports some gradual minor memory loss. Pt has B hip replacement and a microdiscectomy L4-5. No falls . Pt sees Oncology every 3 weeks and gets a subcutaneous shot every 3 weeks which inc red blood cells. Prior to these diagnoses (1.5 years ago ), he was sailing, biking, tennis, hiking and walking. Pt reports he can cut about 3 roses then has to sit down d/t fatigue. His chores are very short. Indep w/ADLs. Can only walk 80ft before he has to rest. Prior Treatments and Tests No PT since all of this started Treatment Goals Patient/Caregiver Goals inc tolerance w/walking, inc endurance, be able to get up/ down from ground w/o outside support PT-OP-C Subjective Start: 08/18/21 11:31 Freq: Status: Active Protocol: Document 10/18/21 11:22 [facility] (Rec: 10/18/21 11:57 [facility] [id number]) OP-PT Subjective Patient Comments Patient Comments Pt reports he got his imunoglobulin injections last mon/. He feels less lightheaded standing PT-OP-D Balance Start: 08/18/21 11:31 Freq: Status: Active Protocol: Document 08/19/21 07:38 [facility] (Rec: 08/19/21 10:23 [facility] [id number]) Balance Tests Dunn Balance Test Dunn Balance Test Score 46/56 PT-OP-E Functional Tests Start: 08/18/21 11:31 Freq: Status: Active Protocol: Document 09/27/21 11:41 [facility] (Rec: 09/27/21 12:06 [facility] [id number]) Functional Tests 30 Second Sit to Stand Test Score 4 Five Times Sit to Stand Test Comments 21 sec to do 4 before quads fatigue PT-OP-G Mobility & Gait Start: 08/18/21 11:31 Freq: Status: Active Protocol: Document 08/19/21 07:38 [facility] (Rec: 08/19/21 10:23 [facility] [id number]) OP Mobility Evaluation Bed Mobility Supine to and from Sit indep Transfers Sit to Stand able to sit to stand indep - chooses to use UEs but can w/o OP Gait Assessment Comments Gait Comments Amb with slow pace and dec push off PT-OP-M Strength Start: 08/18/21 11:31 Freq: Status: Active Protocol: Document 09/27/21 11:41 [facility] (Rec: 09/27/21 12:06 [facility] [id number]) Hip Strength Hip Manual Muscle Testing Right Flexion (L2) 4- Good- Extension (S1) 2+ Poor+ Abduction 3+ Fair+ External Rotation 3+ Fair+ Internal Rotation 4+ Good+ Left Flexion (L2) 4- Good- Extension (S1) 2+ Poor+ Abduction 4- Good- External Rotation 3+ Fair+ Internal Rotation 4+ Good+ Comments goes into flex B w/abd testing Knee Strength Knee Manual Muscle Testing Right Flexion (S2) 4+ Good+ Extension (L3) 5 Normal Left Flexion (S2) 4+ Good+ Extension (L3) 5 Normal Ankle/Foot Strength Ankle and Foot Manual Muscle Testing Right Dorsiflexion (L4) 4- Good- Plantarflexion (S1) 5 Normal Comments PF tested seated Left Dorsiflexion (L4) 4- Good- Plantarflexion (S1) 4+ Good+ PT-OP-Q Treatments Start: 08/18/21 11:31 Freq: Status: Active Protocol: Document 10/18/21 11:22 [facility] (Rec: 10/18/21 11:57 [facility] [id number]) Gym Equipment Shuttle Recovery heel raises Resistance 62# Shuttle Recovery Platform Stable Reps/Time 20, 10 Bilateral Squats Resistance 125# Shuttle Recovery Platform Stable Reps/Time 3x10 Therapeutic Ball seated Ball Size/Color 75 cm Body Position seated Comments 1. marches B 1x10 2. pelvic circles B 1x20 3. LAQ x10 Neuro Re-Education Treatment Balance Activities bosu Comments 1. standing balance w/ rail prn 2. step ups B x5 head turns Reps/Duration 2x50ft each Comments 1. horizontal head turns 2. vertical head turns rest btw hurdles Comments 1. 6 hurdles step through fwd gait rail prn x6 2. side step over 6 hurdles- 2x PT-OP-T Assessment and Plan Start: 08/18/21 11:31 Freq: Status: Active Protocol: Document 10/18/21 11:22 [facility] (Rec: 10/18/21 11:57 [facility] [id number]) Physical Therapy Assessment Goals sit to stand Custodial Goal (LTG) Pt will be able to complete at least 10 sit to stands in 30 sec to show improved strength and funcitonal ability. LTG Duration 11/18/21 balance Senior Core Java Developer Goal (LTG) Pt will be able to score at least 20/24 on DGI to show dec risk for falls. LTG Duration 11/18/21 strength Short Term Goal (STG) Pt will be indep w/HEP STG Duration achieved progresssing as able Custodial Goal (LTG) Pt will score at least 4/5 on all LE MMT to show improved strengtht o improve pt's ability to participate in home activities. 09/27-improving LTG Duration 11/18/21 walking Short Term Goal (STG) Pt willb e able to complete 2 min walk test w/o requriing seated rest break at least 160ft to show improved activity tolerance. 09/27-pt having difficulty w/ SOB more over past 2 weeks. Has been having testing done to determine reason STG Duration 09/27/21 Custodial Goal (LTG) Pt will be able to complete 6 min walk test with distance of at least 450ft. LTG Duration 11/18/21 Assessment Summary Assessment Pt did better with all standing balance exercises today w/less issues w/LOB until he started to fatigue at the end of each exercise. HE did have more SOB w/ leg press than normally. Physical Therapy Plan Frequency and Duration Frequency of Treatment 2x/Week Duration of Treatment 3 months Plan of Care Start Date 08/19/21 Plan of Care End Date 11/18/21 Next Visit Focus/Plan Next Note Type Treatment Note Next Visit Plan cont progressing and challenging endurance with standing and walking exercises
--- NOTE | 2021-10-20 11:04 | PT.OTN ---
Current Diagnoses Guillain-[place]on syndrome (10/20/21) Muscle weakness (generalized) (10/20/21) Difficulty in walking, not elsewhere classified (10/20/21) Physical Therapy Treatment Note PT-OP-A Visit Information Start: 08/18/21 11:31 Freq: Status: Active Protocol: Document 10/20/21 10:24 MA (Rec: 10/20/21 11:00 MA [id number]) Out-Patient Physical Therapy Visit Information Visit Information Visit Type Treatment Note Visit Note 06/05 Visit Start Time 10:20 Visit Stop Time 11:00 Total Visit Minutes 40 Visit Number 15 Number of TERRAZZO TILE MAKER Visits 1 PT-OP-B Current Condition Start: 08/18/21 11:31 Freq: Status: Active Protocol: Document 08/19/21 07:38 [facility] (Rec: 08/19/21 10:23 [facility] [id number]) Current Condition History of Current Condition Onset Date 1.5 years ago Current Complaints weakness History of Current Condition Pt was diagonosed w/ myelofibrosis which comes w/ low hematocrit and platelets and has slowly dec frequency to 4 weeks ago. He had V[employer]rapies shot February 08 and developed Guillian [place] Syndrome symptoms a few weeks later. He got his blood count done and was fine and was severe weakness. Severe weakness in legs and some in arms w/no reflexs and some facilitations whcih he doens't have it any more. He had infusions of immunoglobulin and it seemed to help a bit at first. He has an electric WC coming today that he paid for out of pocket that he plans to use when out of the house. He can recover from activity w/5 -10 min of rest. He has some ankle swelling that started aobut 6 months ago but labs have all been normal for possible CHF. Pt reports he gets SOB and weakness. He has postural hypotension. Pt reports some gradual minor memory loss. Pt has B hip replacement and a microdiscectomy L4-5. No falls . Pt sees Oncology every 3 weeks and gets a subcutaneous shot every 3 weeks which inc red blood cells. Prior to these diagnoses (1.5 years ago ), he was sailing, biking, tennis, hiking and walking. Pt reports he can cut about 3 roses then has to sit down d/t fatigue. His chores are very short. Indep w/ADLs. Can only walk 80ft before he has to rest. Prior Treatments and Tests No PT since all of this started Treatment Goals Patient/Caregiver Goals inc tolerance w/walking, inc endurance, be able to get up/ down from ground w/o outside support PT-OP-C Subjective Start: 08/18/21 11:31 Freq: Status: Active Protocol: Document 10/20/21 10:24 [facility] (Rec: 10/20/21 11:00 MA [id number]) OP-PT Subjective Patient Comments Patient Comments Pt is still feeling better since stopping his injections PT-OP-D Balance Start: 08/18/21 11:31 Freq: Status: Active Protocol: Document 08/19/21 07:38 [facility] (Rec: 08/19/21 10:23 [facility] [id number]) Balance Tests Dunn Balance Test Dunn Balance Test Score 46/56 PT-OP-E Functional Tests Start: 08/18/21 11:31 Freq: Status: Active Protocol: Document 09/27/21 11:41 [facility] (Rec: 09/27/21 12:06 [facility] [id number]) Functional Tests 30 Second Sit to Stand Test Score 4 Five Times Sit to Stand Test Comments 21 sec to do 4 before quads fatigue PT-OP-G Mobility & Gait Start: 08/18/21 11:31 Freq: Status: Active Protocol: Document 08/19/21 07:38 [facility] (Rec: 08/19/21 10:23 [facility] [id number]) OP Mobility Evaluation Bed Mobility Supine to and from Sit indep Transfers Sit to Stand able to sit to stand indep - chooses to use UEs but can w/o OP Gait Assessment Comments Gait Comments Amb with slow pace and dec push off PT-OP-M Strength Start: 08/18/21 11:31 Freq: Status: Active Protocol: Document 09/27/21 11:41 [facility] (Rec: 09/27/21 12:06 [facility] [id number]) Hip Strength Hip Manual Muscle Testing Right Flexion (L2) 4- Good- Extension (S1) 2+ Poor+ Abduction 3+ Fair+ External Rotation 3+ Fair+ Internal Rotation 4+ Good+ Left Flexion (L2) 4- Good- Extension (S1) 2+ Poor+ Abduction 4- Good- External Rotation 3+ Fair+ Internal Rotation 4+ Good+ Comments goes into flex B w/abd testing Knee Strength Knee Manual Muscle Testing Right Flexion (S2) 4+ Good+ Extension (L3) 5 Normal Left Flexion (S2) 4+ Good+ Extension (L3) 5 Normal Ankle/Foot Strength Ankle and Foot Manual Muscle Testing Right Dorsiflexion (L4) 4- Good- Plantarflexion (S1) 5 Normal Comments PF tested seated Left Dorsiflexion (L4) 4- Good- Plantarflexion (S1) 4+ Good+ PT-OP-Q Treatments Start: 08/18/21 11:31 Freq: Status: Active Protocol: Document 10/20/21 10:24 MA (Rec: 10/20/21 11:00 MA [id number]) Gym Equipment Shuttle Recovery Bilateral Squats Resistance 125# Shuttle Recovery Platform Stable Reps/Time 2x10, 1x11 Therapeutic Ball seated Ball Size/Color 75 cm Body Position seated Comments 1. Balloon toss outside [place] with aide 2. marches B 1x10 3. LAQ x10 Gait Training Gait Activity 2 min walk test Description 2 min walk test Device Used None Level of Assistance None Surface smooth Treatment Focus endurance Comments 1 min 26 seconds- 189 ft 1 min 25 seconds, 193 ft Neuro Re-Education Treatment Balance Activities Taps Details tapping 6 step, alt sides Equipment 6 stair Reps/Duration 1' x2 Comments rail prn, cues to avoid stomping foot staggered stance Details tandem stance Surface solid Comments 1. standing- rail prn 2. tandem walking- Min A for balance PT-OP-T Assessment and Plan Start: 08/18/21 11:31 Freq: Status: Active Protocol: Document 10/20/21 10:24 MA (Rec: 10/20/21 11:00 MA [id number]) Physical Therapy Assessment Goals sit to stand Senior Care Goal (LTG) Pt will be able to complete at least 10 sit to stands in 30 sec to show improved strength and funcitonal ability. LTG Duration 11/18/21 balance Senior Care Goal (LTG) Pt will be able to score at least 20/24 on DGI to show dec risk for falls. LTG Duration 11/18/21 strength Short Term Goal (STG) Pt will be indep w/HEP STG Duration achieved progresssing as able Express Clerk Goal (LTG) Pt will score at least 4/5 on all LE MMT to show improved strengtht o improve pt's ability to participate in home activities. 11/1-improving LTG Duration 11/18/21 walking Short Term Goal (STG) Pt willb e able to complete 2 min walk test w/o requriing seated rest break at least 160ft to show improved activity tolerance. 09/27-pt having difficulty w/ SOB more over past 2 weeks. Has been having testing done to determine reason STG Duration 09/27/21 Express Clerk Goal (LTG) Pt will be able to complete 6 min walk test with distance of at least 450ft. LTG Duration 11/18/21 Assessment Summary Assessment Pt able to walk for 10 more seconds than last time and just over 30 more feet than previous 2 minute walk test. Goldy is still unable to complete full 2 minutes of walking though due to SOB and LE fatigue. He has difficulty with tandem balance this session especially when LLE is back. Pt would continue to benefit from therapy for increasing endurance, balance, and overall strength. Physical Therapy Plan Frequency and Duration Frequency of Treatment 2x/Week Duration of Treatment 3 months Plan of Care Start Date 08/19/21 Plan of Care End Date 11/18/21 Therapeutic Interventions Therapeutic Interventions Aquatic Therapy,Balance Training,Gait Training,Home Exercise Program,Joint Mobilizations,Manual Therapy, Neuromuscular Re-education, Orthotic/Prosthetic Management ,Patient/Caregiver Education, Self-Care/Home Management,Soft Tissue Mobilization,Taping, Therapeutic Activities, Therapeutic Exercises Modalities Cold Pack/Ice Massage,Electric Stimulation,Hot Packs Next Visit Focus/Plan Next Note Type Treatment Note Next Visit Plan Start with 2 min walk test ensuring there are places to rest if pt fatigues cont progressing and challenging endurance with standing and walking exercises
--- NOTE | 2021-10-25 12:03 | PT.OTN ---
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) Muscle weakness (generalized) (10/25/21) Difficulty in walking, not elsewhere classified (10/25/21) Physical Therapy Treatment Note PT-OP-A Visit Information Start: 08/18/21 11:31 Freq: Status: Active Protocol: Document 10/25/21 11:25 [facility] (Rec: 10/25/21 12:03 [facility] [id number]) Out-Patient Physical Therapy Visit Information Visit Information Visit Type Treatment Note Visit Note 07/06 Visit Start Time 11:19 Visit Stop Time 12:00 Total Visit Minutes 41 Visit Number 16 Number of BOAT RIDE OPERATOR Visits 0 PT-OP-B Current Condition Start: 08/18/21 11:31 Freq: Status: Active Protocol: Document 08/19/21 07:38 [facility] (Rec: 08/19/21 10:23 [facility] [id number]) Current Condition History of Current Condition Onset Date 1.5 years ago Current Complaints weakness History of Current Condition Pt was diagonosed w/ myelofibrosis which comes w/ low hematocrit and platelets and has slowly dec frequency to 4 weeks ago. He had [employer] shot February 08 and developed Guillian [place] Syndrome symptoms a few weeks later. He got his blood count done and was fine and was severe weakness. Severe weakness in legs and some in arms w/no reflexs and some facilitations whcih he doens't have it any more. He had infusions of immunoglobulin and it seemed to help a bit at first. He has an electric WC coming today that he paid for out of pocket that he plans to use when out of the house. He can recover from activity w/5 -10 min of rest. He has some ankle swelling that started aobut 6 months ago but labs have all been normal for possible CHF. Pt reports he gets SOB and weakness. He has postural hypotension. Pt reports some gradual minor memory loss. Pt has B hip replacement and a microdiscectomy L4-5. No falls . Pt sees Oncology every 3 weeks and gets a subcutaneous shot every 3 weeks which inc red blood cells. Prior to these diagnoses (1.5 years ago ), he was sailing, biking, tennis, hiking and walking. Pt reports he can cut about 3 roses then has to sit down d/t fatigue. His chores are very short. Indep w/ADLs. Can only walk 80ft before he has to rest. Prior Treatments and Tests No PT since all of this started Treatment Goals Patient/Caregiver Goals inc tolerance w/walking, inc endurance, be able to get up/ down from ground w/o outside support PT-OP-C Subjective Start: 08/18/21 11:31 Freq: Status: Active Protocol: Document 10/25/21 11:25 [facility] (Rec: 10/25/21 12:03 [facility] [id number]) OP-PT Subjective Patient Comments Patient Comments Pt reports he feels lik he is more SOB the past few days. Just had his bloodwork drawn PT-OP-D Balance Start: 08/18/21 11:31 Freq: Status: Active Protocol: Document 08/19/21 07:38 [facility] (Rec: 08/19/21 10:23 [facility] [id number]) Balance Tests Dunn Balance Test Dunn Balance Test Score 46/56 PT-OP-E Functional Tests Start: 08/18/21 11:31 Freq: Status: Active Protocol: Document 09/27/21 11:41 [facility] (Rec: 09/27/21 12:06 [facility] [id number]) Functional Tests 30 Second Sit to Stand Test Score 4 Five Times Sit to Stand Test Comments 21 sec to do 4 before quads fatigue PT-OP-G Mobility & Gait Start: 08/18/21 11:31 Freq: Status: Active Protocol: Document 08/19/21 07:38 [facility] (Rec: 08/19/21 10:23 [facility] [id number]) OP Mobility Evaluation Bed Mobility Supine to and from Sit indep Transfers Sit to Stand able to sit to stand indep - chooses to use UEs but can w/o OP Gait Assessment Comments Gait Comments Amb with slow pace and dec push off PT-OP-M Strength Start: 08/18/21 11:31 Freq: Status: Active Protocol: Document 09/27/21 11:41 [facility] (Rec: 09/27/21 12:06 [facility] [id number]) Hip Strength Hip Manual Muscle Testing Right Flexion (L2) 4- Good- Extension (S1) 2+ Poor+ Abduction 3+ Fair+ External Rotation 3+ Fair+ Internal Rotation 4+ Good+ Left Flexion (L2) 4- Good- Extension (S1) 2+ Poor+ Abduction 4- Good- External Rotation 3+ Fair+ Internal Rotation 4+ Good+ Comments goes into flex B w/abd testing Knee Strength Knee Manual Muscle Testing Right Flexion (S2) 4+ Good+ Extension (L3) 5 Normal Left Flexion (S2) 4+ Good+ Extension (L3) 5 Normal Ankle/Foot Strength Ankle and Foot Manual Muscle Testing Right Dorsiflexion (L4) 4- Good- Plantarflexion (S1) 5 Normal Comments PF tested seated Left Dorsiflexion (L4) 4- Good- Plantarflexion (S1) 4+ Good+ PT-OP-Q Treatments Start: 08/18/21 11:31 Freq: Status: Active Protocol: Document 10/25/21 11:25 [facility] (Rec: 10/25/21 12:03 [facility] [id number]) Gym Equipment Shuttle Recovery heel raises Resistance 62# Shuttle Recovery Platform Stable Reps/Time 2x20 Bilateral Squats Resistance 125# Shuttle Recovery Platform Stable Reps/Time 2x10, x12 Therapeutic Exercises Standing Exercises squat Standing Exercise Name at rail Side bilateral Reps/Minutes 10 hip ext Standing Exercise Name fwd/back walk Side bilateral Equipment Used yellow band Reps/Minutes 20ft hip abd Standing Exercise Name side step Side bilateral Equipment Used yellow band Reps/Minutes 20ft Other Exercises 2 min walk test Other Exercise Name 180ft Neuro Re-Education Treatment Balance Activities Taps Details tapping 6 step, alt sides Equipment 6 stair Reps/Duration 1' Comments rail prn, cues to avoid stomping foot hurdles Comments 1. 6 hurdles step through fwd gait rail prn x6 2. side step over 6 hurdles- 2x PT-OP-T Assessment and Plan Start: 08/18/21 11:31 Freq: Status: Active Protocol: Document 10/25/21 11:25 [facility] (Rec: 10/25/21 12:03 [facility] [id number]) Physical Therapy Assessment Goals sit to stand Closet Organizer Goal (LTG) Pt will be able to complete at least 10 sit to stands in 30 sec to show improved strength and funcitonal ability. LTG Duration 11/18/21 balance Closet Organizer Goal (LTG) Pt will be able to score at least 20/24 on DGI to show dec risk for falls. LTG Duration 11/18/21 strength Short Term Goal (STG) Pt will be indep w/HEP STG Duration achieved progresssing as able Fdc Goal (LTG) Pt will score at least 4/5 on all LE MMT to show improved strengtht o improve pt's ability to participate in home activities. 09/27-improving LTG Duration 11/18/21 walking Short Term Goal (STG) Pt willb e able to complete 2 min walk test w/o requriing seated rest break at least 160ft to show improved activity tolerance. 09/27-pt having difficulty w/ SOB more over past 2 weeks. Has been having testing done to determine reason 10/25-able to do 180ft but could only go 1.5 min STG Duration 09/27/21 Closet Organizer Goal (LTG) Pt will be able to complete 6 min walk test with distance of at least 450ft. LTG Duration 11/18/21 Assessment Summary Assessment Pt did more walking with 2 min walk test showing improved pace but cannot walk 2 min still. He is improving w/ strength & does better with balance tasks but still does require seated rest breaks between standing exercises. Physical Therapy Plan Frequency and Duration Frequency of Treatment 2x/Week Duration of Treatment 3 months Plan of Care Start Date 08/19/21 Plan of Care End Date 11/18/21 Next Visit Focus/Plan Next Note Type Treatment Note Next Visit Plan cont progressing and challenging endurance with standing and walking exercises
--- NOTE | 2021-10-27 12:00 | PT.OTN ---
Current Diagnoses Guillain-[place] syndrome (10/27/21) Muscle weakness (generalized) (10/27/21) Difficulty in walking, not elsewhere classified (10/27/21) Physical Therapy Treatment Note PT-OP-A Visit Information Start: 08/18/21 11:31 Freq: Status: Active Protocol: Document 10/27/21 11:18 [facility] (Rec: 10/27/21 12:00 [facility] [id number]) Out-Patient Physical Therapy Visit Information Visit Information Visit Type Treatment Note Visit Note 08/06 Visit Start Time 11:19 Visit Stop Time 12:00 Total Visit Minutes 41 Visit Number 17 Number of YARN CLEANER Visits 0 PT-OP-B Current Condition Start: 08/18/21 11:31 Freq: Status: Active Protocol: Document 08/19/21 07:38 [facility] (Rec: 08/19/21 10:23 [facility] [id number]) Current Condition History of Current Condition Onset Date 1.5 years ago Current Complaints weakness History of Current Condition Pt was diagonosed w/ myelofibrosis which comes w/ low hematocrit and platelets and has slowly dec frequency to 4 weeks ago. He had [employer] shot February 08 and developed Guillian [place] Syndrome symptoms a few weeks later. He got his blood count done and was fine and was severe weakness. Severe weakness in legs and some in arms w/no reflexs and some facilitations whcih he doens't have it any more. He had infusions of immunoglobulin and it seemed to help a bit at first. He has an electric WC coming today that he paid for out of pocket that he plans to use when out of the house. He can recover from activity w/5 -10 min of rest. He has some ankle swelling that started aobut 6 months ago but labs have all been normal for possible CHF. Pt reports he gets SOB and weakness. He has postural hypotension. Pt reports some gradual minor memory loss. Pt has B hip replacement and a microdiscectomy L4-5. No falls . Pt sees Oncology every 3 weeks and gets a subcutaneous shot every 3 weeks which inc red blood cells. Prior to these diagnoses (1.5 years ago ), he was sailing, biking, tennis, hiking and walking. Pt reports he can cut about 3 roses then has to sit down d/t fatigue. His chores are very short. Indep w/ADLs. Can only walk 80ft before he has to rest. Prior Treatments and Tests No PT since all of this started Treatment Goals Patient/Caregiver Goals inc tolerance w/walking, inc endurance, be able to get up/ down from ground w/o outside support PT-OP-C Subjective Start: 08/18/21 11:31 Freq: Status: Active Protocol: Document 10/27/21 11:18 [facility] (Rec: 10/27/21 12:00 [facility] [id number]) OP-PT Subjective Patient Comments Patient Comments Pt reprots he stated being more SOB last night after big meal and still pretty SOB. Going to have more labs done. PT-OP-D Balance Start: 08/18/21 11:31 Freq: Status: Active Protocol: Document 08/19/21 07:38 [facility] (Rec: 08/19/21 10:23 [facility] [id number]) Balance Tests Dunn Balance Test Dunn Balance Test Score 46/56 PT-OP-E Functional Tests Start: 08/18/21 11:31 Freq: Status: Active Protocol: Document 09/27/21 11:41 [facility] (Rec: 09/27/21 12:06 [facility] [id number]) Functional Tests 30 Second Sit to Stand Test Score 4 Five Times Sit to Stand Test Comments 21 sec to do 4 before quads fatigue PT-OP-G Mobility & Gait Start: 08/18/21 11:31 Freq: Status: Active Protocol: Document 08/19/21 07:38 [facility] (Rec: 08/19/21 10:23 [facility] [id number]) OP Mobility Evaluation Bed Mobility Supine to and from Sit indep Transfers Sit to Stand able to sit to stand indep - chooses to use UEs but can w/o OP Gait Assessment Comments Gait Comments Amb with slow pace and dec push off PT-OP-M Strength Start: 08/18/21 11:31 Freq: Status: Active Protocol: Document 09/27/21 11:41 [facility] (Rec: 09/27/21 12:06 [facility] [id number]) Hip Strength Hip Manual Muscle Testing Right Flexion (L2) 4- Good- Extension (S1) 2+ Poor+ Abduction 3+ Fair+ External Rotation 3+ Fair+ Internal Rotation 4+ Good+ Left Flexion (L2) 4- Good- Extension (S1) 2+ Poor+ Abduction 4- Good- External Rotation 3+ Fair+ Internal Rotation 4+ Good+ Comments goes into flex B w/abd testing Knee Strength Knee Manual Muscle Testing Right Flexion (S2) 4+ Good+ Extension (L3) 5 Normal Left Flexion (S2) 4+ Good+ Extension (L3) 5 Normal Ankle/Foot Strength Ankle and Foot Manual Muscle Testing Right Dorsiflexion (L4) 4- Good- Plantarflexion (S1) 5 Normal Comments PF tested seated Left Dorsiflexion (L4) 4- Good- Plantarflexion (S1) 4+ Good+ PT-OP-Q Treatments Start: 08/18/21 11:31 Freq: Status: Active Protocol: Document 10/27/21 11:18 [facility] (Rec: 10/27/21 12:00 [facility] [id number]) Therapeutic Exercises Standing Exercises lunge Side bilateral Reps/Minutes 2 Comments stopped d/t pain squat Side bilateral Reps/Minutes x5, x10 hip ext Standing Exercise Name fwd/back walk Side bilateral Equipment Used yellow band Reps/Minutes 20ft hip abd Standing Exercise Name side step Side bilateral Equipment Used yellow band Reps/Minutes 20ft Neuro Re-Education Treatment Balance Activities carcioca Details rail prn Reps/Duration 20ft B squares Details in then outside red squares Reps/Duration 4x Taps Details alt on bosu Reps/Duration 1 min bosu Details standing balance hurdles Comments 1. 6 hurdles step through fwd gait rail prn x6 2. side step over 6 hurdles- 2x PT-OP-T Assessment and Plan Start: 08/18/21 11:31 Freq: Status: Active Protocol: Document 10/27/21 11:18 [facility] (Rec: 10/27/21 12:00 [facility] [id number]) Physical Therapy Assessment Goals sit to stand Penitentiary Goal (LTG) Pt will be able to complete at least 10 sit to stands in 30 sec to show improved strength and funcitonal ability. LTG Duration 11/18/21 balance Penitentiary Goal (LTG) Pt will be able to score at least 20/24 on DGI to show dec risk for falls. LTG Duration 11/18/21 strength Short Term Goal (STG) Pt will be indep w/HEP STG Duration achieved progresssing as able Penitentiary Goal (LTG) Pt will score at least 4/5 on all LE MMT to show improved strengtht o improve pt's ability to participate in home activities. 09/27-improving LTG Duration 11/18/21 walking Short Term Goal (STG) Pt willb e able to complete 2 min walk test w/o requriing seated rest break at least 160ft to show improved activity tolerance. 09/27-pt having difficulty w/ SOB more over past 2 weeks. Has been having testing done to determine reason 10/25-able to do 180ft but could only go 1.5 min STG Duration 09/27/21 Cvir Tech Goal (LTG) Pt will be able to complete 6 min walk test with distance of at least 450ft. LTG Duration 11/18/21 Assessment Summary Assessment Pt required his typical amt of rest breaks at first but then required inc amt of rest breaks w/ standing activities towards the end of the session . He did have L knee pain w/ lunges so discontinued those. He tolerated adding new balance activities. Physical Therapy Plan Frequency and Duration Frequency of Treatment 2x/Week Duration of Treatment 3 months Plan of Care Start Date 08/19/21 Plan of Care End Date 11/18/21 Next Visit Focus/Plan Next Note Type Progress Note Next Visit Plan try seated exercise bike
--- NOTE | 2021-11-01 12:00 | PT.OTN ---
Current Diagnoses Guillain-[place] syndrome (11/01/21) Muscle weakness (generalized) (11/01/21) Difficulty in walking, not elsewhere classified (11/01/21) Physical Therapy Treatment Note PT-OP-A Visit Information Start: 08/18/21 11:31 Freq: Status: Active Protocol: Document 11/01/21 11:18 [facility] (Rec: 11/01/21 11:58 [facility] [id number]) Out-Patient Physical Therapy Visit Information Visit Information Visit Type Progress Note Visit Note 12/06 Visit Start Time 11:18 Visit Stop Time 12:00 Total Visit Minutes 42 Visit Number 18 Number of COIN PURSE ASSEMBLER Visits 0 PT-OP-B Current Condition Start: 08/18/21 11:31 Freq: Status: Active Protocol: Document 08/19/21 07:38 [facility] (Rec: 08/19/21 10:23 [facility] [id number]) Current Condition History of Current Condition Onset Date 1.5 years ago Current Complaints weakness History of Current Condition Pt was diagonosed w/ myelofibrosis which comes w/ low hematocrit and platelets and has slowly dec frequency to 4 weeks ago. He had [employer] shot February 08 and developed Guillian [place] Syndrome symptoms a few weeks later. He got his blood count done and was fine and was severe weakness. Severe weakness in legs and some in arms w/no reflexs and some facilitations whcih he doens't have it any more. He had infusions of immunoglobulin and it seemed to help a bit at first. He has an electric WC coming today that he paid for out of pocket that he plans to use when out of the house. He can recover from activity w/5 -10 min of rest. He has some ankle swelling that started aobut 6 months ago but labs have all been normal for possible CHF. Pt reports he gets SOB and weakness. He has postural hypotension. Pt reports some gradual minor memory loss. Pt has B hip replacement and a microdiscectomy L4-5. No falls . Pt sees Oncology every 3 weeks and gets a subcutaneous shot every 3 weeks which inc red blood cells. Prior to these diagnoses (1.5 years ago ), he was sailing, biking, tennis, hiking and walking. Pt reports he can cut about 3 roses then has to sit down d/t fatigue. His chores are very short. Indep w/ADLs. Can only walk 80ft before he has to rest. Prior Treatments and Tests No PT since all of this started Treatment Goals Patient/Caregiver Goals inc tolerance w/walking, inc endurance, be able to get up/ down from ground w/o outside support PT-OP-C Subjective Start: 08/18/21 11:31 Freq: Status: Active Protocol: Document 11/01/21 11:18 [facility] (Rec: 11/01/21 11:58 [facility] [id number]) OP-PT Subjective Patient Comments Patient Comments pt reports he feels like his SOB is less than last week PT-OP-D Balance Start: 08/18/21 11:31 Freq: Status: Active Protocol: Document 08/19/21 07:38 [facility] (Rec: 08/19/21 10:23 [facility] [id number]) Balance Tests Dunn Balance Test Dunn Balance Test Score 46/56 PT-OP-E Functional Tests Start: 08/18/21 11:31 Freq: Status: Active Protocol: Document 11/01/21 11:18 [facility] (Rec: 11/01/21 11:58 [facility] [id number]) Functional Tests 6 Minute Walk Test Distance 215ft Comments able to go 1.5 min 30 Second Sit to Stand Test Score 7 Dynamic Gait Index (DGI) Score 17/24 Five Times Sit to Stand Test Score 21 sec PT-OP-G Mobility & Gait Start: 08/18/21 11:31 Freq: Status: Active Protocol: Document 08/19/21 07:38 [facility] (Rec: 08/19/21 10:23 [facility] [id number]) OP Mobility Evaluation Bed Mobility Supine to and from Sit indep Transfers Sit to Stand able to sit to stand indep - chooses to use UEs but can w/o OP Gait Assessment Comments Gait Comments Amb with slow pace and dec push off PT-OP-M Strength Start: 08/18/21 11:31 Freq: Status: Active Protocol: Document 11/01/21 11:18 [facility] (Rec: 11/01/21 11:58 [facility] [id number]) Hip Strength Hip Manual Muscle Testing Right Flexion (L2) 4- Good- Extension (S1) 3 Fair Abduction 4- Good- External Rotation 4- Good- Internal Rotation 4+ Good+ Left Flexion (L2) 4- Good- Extension (S1) 3 Fair Abduction 4- Good- External Rotation 3+ Fair+ Internal Rotation 4+ Good+ Comments goes into flex B w/abd testing Knee Strength Knee Manual Muscle Testing Right Flexion (S2) 5 Normal Extension (L3) 5 Normal Left Flexion (S2) 4+ Good+ Extension (L3) 5 Normal Ankle/Foot Strength Ankle and Foot Manual Muscle Testing Right Dorsiflexion (L4) 5 Normal Plantarflexion (S1) 5 Normal Comments PF tested seated Left Dorsiflexion (L4) 4 Good Plantarflexion (S1) 4+ Good+ PT-OP-Q Treatments Start: 08/18/21 11:31 Freq: Status: Active Protocol: Document 11/01/21 11:18 [facility] (Rec: 11/01/21 11:58 [facility] [id number]) Gym Equipment Shuttle Recovery Bilateral Squats Resistance 125# Shuttle Recovery Platform Stable Reps/Time 3x12 Therapeutic Exercises Standing Exercises squat Side bilateral Reps/Minutes 10 heel raises Side bilateral Reps/Minutes 20 hip ext Standing Exercise Name fwd/back walk Side bilateral Equipment Used yellow band Reps/Minutes 20ft hip abd Standing Exercise Name side step Side bilateral Equipment Used yellow band Reps/Minutes 20ft PT-OP-T Assessment and Plan Start: 08/18/21 11:31 Freq: Status: Active Protocol: Document 11/01/21 11:18 [facility] (Rec: 11/01/21 11:58 [facility] [id number]) Physical Therapy Assessment Goals sit to stand Student Education Specialist Goal (LTG) Pt will be able to complete at least 10 sit to stands in 30 sec to show improved strength and funcitonal ability. 11/01-imprvoed to 7 LTG Duration 01/30/22 balance Long-Term Goal (LTG) Pt will be able to score at least 20/24 on DGI to show dec risk for falls. 11/01-improved to 17 LTG Duration 01/30/22 strength Short Term Goal (STG) Pt will be indep w/HEP STG Duration achieved progresssing as able Student Education Specialist Goal (LTG) Pt will score at least 4/5 on all LE MMT to show improved strengtht o improve pt's ability to participate in home activities. 09/27-improving 11/01-improved LTG Duration 01/30/22 walking Short Term Goal (STG) Pt willb e able to complete 2 min walk test w/o requriing seated rest break at least 160ft to show improved activity tolerance. 09/27-pt having difficulty w/ SOB more over past 2 weeks. Has been having testing done to determine reason 10/25-able to do 180ft but could only go 1.5 min 11/01-215ft but still only able to go 1.5 min STG Duration 12/02/21 Student Education Specialist Goal (LTG) Pt will be able to complete 6 min walk test with distance of at least 450ft. LTG Duration 01/30/22 Assessment Summary Assessment Pt is showing good progress towards goals. He is walking further in shorter amounts of time making his gait more functional, but is still limited by SOB and is unable to be up for extended time. His strength is shwoing good progress along w/his balance but still shows risk for falls based on DGI. Physical Therapy Plan Frequency and Duration Frequency of Treatment 2x/Week Duration of Treatment 3 months Plan of Care Start Date 11/01/21 Plan of Care End Date 01/30/22 Therapeutic Interventions Therapeutic Interventions Aquatic Therapy,Balance Training,Gait Training,Home Exercise Program,Joint Mobilizations,Manual Therapy, Neuromuscular Re-education, Orthotic/Prosthetic Management ,Patient/Caregiver Education, Self-Care/Home Management,Soft Tissue Mobilization,Taping, Therapeutic Activities, Therapeutic Exercises Modalities Cold Pack/Ice Massage,Electric Stimulation,Hot Packs Next Visit Focus/Plan Next Note Type Treatment Note Next Visit Plan cont to work on progressing balance adn strength, Try seated exercise bike
--- NOTE | 2021-11-01 12:01 | PT.OPPOC ---
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 (Rec: 11/01/21 11:58 [facility] [id number]) Physical Therapy Assessment Goals sit to stand Skilled Nursing Goal (LTG) Pt will be able to complete at least 10 sit to stands in 30 sec to show improved strength and funcitonal ability. 11/01-imprvoed to 7 LTG Duration 01/30/22 balance Skilled Nursing Goal (LTG) Pt will be able to score at least 20/24 on DGI to show dec risk for falls. 11/01-improved to 17 LTG Duration 01/30/22 strength Short Term Goal (STG) Pt will be indep w/HEP STG Duration achieved progresssing as able Skilled Nursing Goal (LTG) Pt will score at least 4/5 on all LE MMT to show improved strengtht o improve pt's ability to participate in home activities. 09/27-improving 11/01-improved LTG Duration 01/30/22 walking Short Term Goal (STG) Pt willb e able to complete 2 min walk test w/o requriing seated rest break at least 160ft to show improved activity tolerance. 09/27-pt having difficulty w/ SOB more over past 2 weeks. Has been having testing done to determine reason 10/25-able to do 180ft but could only go 1.5 min 11/01-215ft but still only able to go 1.5 min STG Duration 12/02/21 Skilled Nursing Goal (LTG) Pt will be able to complete 6 min walk test with distance of at least 450ft. LTG Duration 01/30/22 Assessment Summary Assessment Pt is showing good progress towards goals. He is walking further in shorter amounts of time making his gait more functional, but is still limited by SOB and is unable to be up for extended time. His strength is shwoing good progress along w/his balance but still shows risk for falls based on DGI. Due to this, he would benefit from cont PT. He will take longer to progress towards goals of return to more typical activity d/t his comorbiities and medical complexity. Physical Therapy Plan Frequency and Duration Frequency of Treatment 2x/Week Duration of Treatment 3 months Plan of Care Start Date 11/01/21 Plan of Care End Date 01/30/22 Therapeutic Interventions Therapeutic Interventions Aquatic Therapy,Balance Training,Gait Training,Home Exercise Program,Joint Mobilizations,Manual Therapy, Neuromuscular Re-education, Orthotic/Prosthetic Management ,Patient/Caregiver Education, Self-Care/Home Management,Soft Tissue Mobilization,Taping, Therapeutic Activities, Therapeutic Exercises Modalities Cold Pack/Ice Massage,Electric Stimulation,Hot Packs Next Visit Focus/Plan Next Note Type Treatment Note Next Visit Plan cont to work on progressing balance adn strength, Try seated exercise bike Plan of Care Dates Plan of Care Start Date 11/01/21 Plan of Care End Date 01/30/22 Electronically Signed by: Cydney Tracy, PT 11/01/21 1209 Please Sign and Return: I have reviewed this Plan of Care and certify that the skilled therapy services above are required to meet the patient?s needs. Physician Signature Date Printed Name and Credentials Clinical Instructor Signature Printed Name and Credentials
--- NOTE | 2021-11-03 11:09 | PT.OTN ---
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) Muscle weakness (generalized) (11/03/21) Difficulty in walking, not elsewhere classified (11/03/21) Physical Therapy Treatment Note PT-OP-A Visit Information Start: 08/18/21 11:31 Freq: Status: Active Protocol: Document 11/03/21 10:11 [facility] (Rec: 11/03/21 11:09 [facility] [id number]) Out-Patient Physical Therapy Visit Information Visit Information Visit Type Treatment Note Visit Note 01/06 Visit Start Time 10:15 Visit Stop Time 11:00 Total Visit Minutes 45 Visit Number 19 Number of MARKET ASSET PROTECTION MANAGER Visits 1 PT-OP-B Current Condition Start: 08/18/21 11:31 Freq: Status: Active Protocol: Document 08/19/21 07:38 [facility] (Rec: 08/19/21 10:23 [facility] [id number]) Current Condition History of Current Condition Onset Date 1.5 years ago Current Complaints weakness History of Current Condition Pt was diagonosed w/ myelofibrosis which comes w/ low hematocrit and platelets and has slowly dec frequency to 4 weeks ago. He had [employer] shot February 08 and developed Guillian Morven Syndrome symptoms a few weeks later. He got his blood count done and was fine and was severe weakness. Severe weakness in legs and some in arms w/no reflexs and some facilitations whcih he doens't have it any more. He had infusions of immunoglobulin and it seemed to help a bit at first. He has an electric WC coming today that he paid for out of pocket that he plans to use when out of the house. He can recover from activity w/5 -10 min of rest. He has some ankle swelling that started aobut 6 months ago but labs have all been normal for possible CHF. Pt reports he gets SOB and weakness. He has postural hypotension. Pt reports some gradual minor memory loss. Pt has B hip replacement and a microdiscectomy L4-5. No falls . Pt sees Oncology every 3 weeks and gets a subcutaneous shot every 3 weeks which inc red blood cells. Prior to these diagnoses (1.5 years ago ), he was sailing, biking, tennis, hiking and walking. Pt reports he can cut about 3 roses then has to sit down d/t fatigue. His chores are very short. Indep w/ADLs. Can only walk 80ft before he has to rest. 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 He will continue getting it scraped out every few weeks. He had his injection yesterday so he reports more fatigue today. PT-OP-D Balance Start: 08/18/21 11:31 Freq: Status: Active Protocol: Document 08/19/21 07:38 [facility] (Rec: 08/19/21 10:23 [facility] [id number]) Balance Tests Dunn Balance Test Dunn Balance Test Score 46/56 PT-OP-E Functional Tests Start: 08/18/21 11:31 Freq: Status: Active Protocol: Document 11/01/21 11:18 [facility] (Rec: 11/01/21 11:58 [facility] [id number]) Functional Tests 6 Minute Walk Test Distance 215ft Comments able to go 1.5 min 30 Second Sit to Stand Test Score 7 Dynamic Gait Index (DGI) Score 17/24 Five Times Sit to Stand Test Score 21 sec PT-OP-G Mobility & Gait Start: 08/18/21 11:31 Freq: Status: Active Protocol: Document 08/19/21 07:38 [facility] (Rec: 08/19/21 10:23 [facility] [id number]) OP Mobility Evaluation Bed Mobility Supine to and from Sit indep Transfers Sit to Stand able to sit to stand indep - chooses to use UEs but can w/o OP Gait Assessment Comments Gait Comments Amb with slow pace and dec push off PT-OP-M Strength Start: 08/18/21 11:31 Freq: Status: Active Protocol: Document 11/01/21 11:18 [facility] (Rec: 11/01/21 11:58 [facility] [id number]) Hip Strength Hip Manual Muscle Testing Right Flexion (L2) 4- Good- Extension (S1) 3 Fair Abduction 4- Good- External Rotation 4- Good- Internal Rotation 4+ Good+ Left Flexion (L2) 4- Good- Extension (S1) 3 Fair Abduction 4- Good- External Rotation 3+ Fair+ Internal Rotation 4+ Good+ Comments goes into flex B w/abd testing Knee Strength Knee Manual Muscle Testing Right Flexion (S2) 5 Normal Extension (L3) 5 Normal Left Flexion (S2) 4+ Good+ Extension (L3) 5 Normal Ankle/Foot Strength Ankle and Foot Manual Muscle Testing Right Dorsiflexion (L4) 5 Normal Plantarflexion (S1) 5 Normal Comments PF tested seated Left Dorsiflexion (L4) 4 Good Plantarflexion (S1) 4+ Good+ PT-OP-Q Treatments Start: 08/18/21 11:31 Freq: Status: Active Protocol: Document 11/03/21 10:11 [facility] (Rec: 11/03/21 11:09 [facility] [id number]) Cardio Equipment Recumbent Bicycle Duration (Minutes) 5 Resistance 5 Seat Position 9 Therapeutic Exercises Standing Exercises heel raises Side bilateral Reps/Minutes 20 step up Side right Equipment Used 6 step Comments d/c due to L knee pain hip ext Standing Exercise Name fwd/back walk Side bilateral Equipment Used yellow band Reps/Minutes 20ft hip abd Standing Exercise Name side step Side bilateral Equipment Used yellow band Reps/Minutes 20ft Gait Training Gait Activity Gait Device Used None Level of Assistance SBA Surface level Distance/Duration 2x50 ft Treatment Focus increasing step width and length Comments pt feels he can balance much better and is less fatigued when focusing on increasing step width Neuro Re-Education Treatment Balance Activities carcioca Details rail prn Reps/Duration 2x20 ft staggered stance Comments rail prn, rock and reach PT-OP-T Assessment and Plan Start: 08/18/21 11:31 Freq: Status: Active Protocol: Document 11/03/21 10:11 [facility] (Rec: 11/03/21 11:09 [facility] [id number]) Physical Therapy Assessment Goals sit to stand Skilled Nursing Goal (LTG) Pt will be able to complete at least 10 sit to stands in 30 sec to show improved strength and funcitonal ability. 11/01-imprvoed to 7 LTG Duration 01/30/22 balance Skilled Nursing Goal (LTG) Pt will be able to score at least 20/24 on DGI to show dec risk for falls. 12/6-improved to 17 LTG Duration 01/30/22 strength Short Term Goal (STG) Pt will be indep w/HEP STG Duration achieved progresssing as able Primary Special Educator Goal (LTG) Pt will score at least 4/5 on all LE MMT to show improved strengtht o improve pt's ability to participate in home activities. 09/27-improving 11/01-improved LTG Duration 01/30/22 walking Short Term Goal (STG) Pt willb e able to complete 2 min walk test w/o requriing seated rest break at least 160ft to show improved activity tolerance. 09/27-pt having difficulty w/ SOB more over past 2 weeks. Has been having testing done to determine reason 10/25-able to do 180ft but could only go 1.5 min 11/01-215ft but still only able to go 1.5 min STG Duration 12/02/21 Primary Special Educator Goal (LTG) Pt will be able to complete 6 min walk test with distance of at least 450ft. LTG Duration 01/30/22 Assessment Summary Assessment Pt was able to complete 5 minutes on recumbant bike today with minimal SOB. Addressed pt's gait this session with pt naturally having a decreased step width and length, demonstrating a scissoring gait pattern as he fatigues. Worked on increasing step width and length with rock and reach balance activity and carried over into gait training. Pt states he is less fatigued after walking when [he] focuses on widening [his] gait. Pt arrived needing CGA due to unsteady gait and fatigue but was able to progress to SBA and improve his scissoring gait at end of session. Physical Therapy Plan Frequency and Duration Frequency of Treatment 2x/Week Duration of Treatment 3 months Plan of Care Start Date 11/01/21 Plan of Care End Date 01/30/22 Therapeutic Interventions Therapeutic Interventions Aquatic Therapy,Balance Training,Gait Training,Home Exercise Program,Joint Mobilizations,Manual Therapy, Neuromuscular Re-education, Orthotic/Prosthetic Management ,Patient/Caregiver Education, Self-Care/Home Management,Soft Tissue Mobilization,Taping, Therapeutic Activities, Therapeutic Exercises Modalities Cold Pack/Ice Massage,Electric Stimulation,Hot Packs Next Visit Focus/Plan Next Note Type Treatment Note Next Visit Plan Possibly try progressing to upright bike vs recumbant. Continue rock & reach gait training for increasing step width and length. Work on progressing balance and strength.
--- NOTE | 2021-11-08 11:14 | PT.OTN ---
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) Muscle weakness (generalized) (11/08/21) Difficulty in walking, not elsewhere classified (11/08/21) Physical Therapy Treatment Note PT-OP-A Visit Information Start: 08/18/21 11:31 Freq: Status: Active Protocol: Document 11/08/21 10:20 [facility] (Rec: 11/08/21 11:13 [facility] [id number]) Out-Patient Physical Therapy Visit Information Visit Information Visit Type Treatment Note Visit Note 02/03 Visit Start Time 10:29 Visit Stop Time 11:14 Total Visit Minutes 45 Visit Number 20 Number of SOA ENGINEER Visits 0 PT-OP-B Current Condition Start: 08/18/21 11:31 Freq: Status: Active Protocol: Document 08/19/21 07:38 [facility] (Rec: 08/19/21 10:23 [facility] [id number]) Current Condition History of Current Condition Onset Date 1.5 years ago Current Complaints weakness History of Current Condition Pt was diagonosed w/ myelofibrosis which comes w/ low hematocrit and platelets and has slowly dec frequency to 4 weeks ago. He had [employer] shot February 08 and developed Guillian Brooks Syndrome symptoms a few weeks later. He got his blood count done and was fine and was severe weakness. Severe weakness in legs and some in arms w/no reflexs and some facilitations whcih he doens't have it any more. He had infusions of immunoglobulin and it seemed to help a bit at first. He has an electric WC coming today that he paid for out of pocket that he plans to use when out of the house. He can recover from activity w/5 -10 min of rest. He has some ankle swelling that started aobut 6 months ago but labs have all been normal for possible CHF. Pt reports he gets SOB and weakness. He has postural hypotension. Pt reports some gradual minor memory loss. Pt has B hip replacement and a microdiscectomy L4-5. No falls . Pt sees Oncology every 3 weeks and gets a subcutaneous shot every 3 weeks which inc red blood cells. Prior to these diagnoses (1.5 years ago ), he was sailing, biking, tennis, hiking and walking. Pt reports he can cut about 3 roses then has to sit down d/t fatigue. His chores are very short. Indep w/ADLs. Can only walk 80ft before he has to rest. Prior Treatments and Tests No PT since all of this started Treatment Goals Patient/Caregiver Goals inc tolerance w/walking, inc endurance, be able to get up/ down from ground w/o outside support PT-OP-C Subjective Start: 08/18/21 11:31 Freq: Status: Active Protocol: Document 11/08/21 10:20 [facility] (Rec: 11/08/21 11:13 [facility] [id number]) OP-PT Subjective Patient Comments Patient Comments pt reports more fatigued today but is looking for imunoglobulin injection tomorrow which often helps that PT-OP-D Balance Start: 08/18/21 11:31 Freq: Status: Active Protocol: Document 08/19/21 07:38 [facility] (Rec: 08/19/21 10:23 [facility] [id number]) Balance Tests Dunn Balance Test Dunn Balance Test Score 46/56 PT-OP-E Functional Tests Start: 08/18/21 11:31 Freq: Status: Active Protocol: Document 11/01/21 11:18 [facility] (Rec: 11/01/21 11:58 [facility] [id number]) Functional Tests 6 Minute Walk Test Distance 215ft Comments able to go 1.5 min 30 Second Sit to Stand Test Score 7 Dynamic Gait Index (DGI) Score 17/24 Five Times Sit to Stand Test Score 21 sec PT-OP-G Mobility & Gait Start: 08/18/21 11:31 Freq: Status: Active Protocol: Document 08/19/21 07:38 [facility] (Rec: 08/19/21 10:23 [facility] [id number]) OP Mobility Evaluation Bed Mobility Supine to and from Sit indep Transfers Sit to Stand able to sit to stand indep - chooses to use UEs but can w/o OP Gait Assessment Comments Gait Comments Amb with slow pace and dec push off PT-OP-M Strength Start: 08/18/21 11:31 Freq: Status: Active Protocol: Document 11/01/21 11:18 [facility] (Rec: 11/01/21 11:58 [facility] [id number]) Hip Strength Hip Manual Muscle Testing Right Flexion (L2) 4- Good- Extension (S1) 3 Fair Abduction 4- Good- External Rotation 4- Good- Internal Rotation 4+ Good+ Left Flexion (L2) 4- Good- Extension (S1) 3 Fair Abduction 4- Good- External Rotation 3+ Fair+ Internal Rotation 4+ Good+ Comments goes into flex B w/abd testing Knee Strength Knee Manual Muscle Testing Right Flexion (S2) 5 Normal Extension (L3) 5 Normal Left Flexion (S2) 4+ Good+ Extension (L3) 5 Normal Ankle/Foot Strength Ankle and Foot Manual Muscle Testing Right Dorsiflexion (L4) 5 Normal Plantarflexion (S1) 5 Normal Comments PF tested seated Left Dorsiflexion (L4) 4 Good Plantarflexion (S1) 4+ Good+ PT-OP-Q Treatments Start: 08/18/21 11:31 Freq: Status: Active Protocol: Document 11/08/21 10:20 [facility] (Rec: 11/08/21 11:13 [facility] [id number]) Cardio Equipment Bicycle (Upright) Duration (Minutes) 2 Resistance 5 Seat Position 8 Therapeutic Exercises Standing Exercises squat Side bilateral Reps/Minutes 10 hip ext Standing Exercise Name fwd/back walk Side bilateral Equipment Used yellow band Reps/Minutes 20ft hip abd Standing Exercise Name side step Side bilateral Equipment Used yellow band Reps/Minutes 20ftx2 Gait Training Gait Activity Gait Device Used None Level of Assistance SBA Surface level Distance/Duration 100ft Treatment Focus increasing step width and length Neuro Re-Education Treatment Balance Activities carcioca Details rail prn Reps/Duration 2x20 ft B hurdles Comments 1. 6 hurdles step through fwd gait rail prn x6 2. side step over 6 hurdles- 2x PT-OP-T Assessment and Plan Start: 08/18/21 11:31 Freq: Status: Active Protocol: Document 11/08/21 10:20 [facility] (Rec: 11/08/21 11:13 [facility] [id number]) Physical Therapy Assessment Goals sit to stand Half-Way Goal (LTG) Pt will be able to complete at least 10 sit to stands in 30 sec to show improved strength and funcitonal ability. 11/01-imprvoed to 7 LTG Duration 01/30/22 balance Truck Leasing Manager Goal (LTG) Pt will be able to score at least 20/24 on DGI to show dec risk for falls. 11/01-improved to 17 LTG Duration 01/30/22 strength Short Term Goal (STG) Pt will be indep w/HEP STG Duration achieved progresssing as able Truck Leasing Manager Goal (LTG) Pt will score at least 4/5 on all LE MMT to show improved strengtht o improve pt's ability to participate in home activities. 09/27-improving 11/01-improved LTG Duration 01/30/22 walking Short Term Goal (STG) Pt willb e able to complete 2 min walk test w/o requriing seated rest break at least 160ft to show improved activity tolerance. 09/27-pt having difficulty w/ SOB more over past 2 weeks. Has been having testing done to determine reason 10/25-able to do 180ft but could only go 1.5 min 11/01-215ft but still only able to go 1.5 min STG Duration 12/02/21 Half-Way Goal (LTG) Pt will be able to complete 6 min walk test with distance of at least 450ft. LTG Duration 01/30/22 Assessment Summary Assessment Pt did fatigue with activity today and require more frequent small rest breaks between activites. he is doing well with balance tasks but does still require rail use occ. Physical Therapy Plan Frequency and Duration Frequency of Treatment 2x/Week Duration of Treatment 3 months Plan of Care Start Date 11/01/21 Plan of Care End Date 01/30/22 Next Visit Focus/Plan Next Note Type Treatment Note Next Visit Plan Return to recumbant bike d/t dec tolerance to upright bike. cont to work on gait, balance and strength
--- NOTE | 2021-11-12 17:38 | PT.OTN ---
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) Muscle weakness (generalized) (11/12/21) Difficulty in walking, not elsewhere classified (11/12/21) Physical Therapy Treatment Note PT-OP-A Visit Information Start: 08/18/21 11:31 Freq: Status: Active Protocol: Document 11/12/21 14:29 MA (Rec: 11/12/21 15:16 MA [id number]) Out-Patient Physical Therapy Visit Information Visit Information Visit Type Treatment Note Visit Note 03/06 PT-OP-B Current Condition Start: 08/18/21 11:31 Freq: Status: Active Protocol: Document 08/19/21 07:38 LR (Rec: 08/19/21 10:23 [facility] [id number]) Current Condition History of Current Condition Onset Date 1.5 years ago Current Complaints weakness History of Current Condition Pt was diagonosed w/ myelofibrosis which comes w/ low hematocrit and platelets and has slowly dec frequency to 4 weeks ago. He had Well shot February 08 and developed Guillian Ashipp[place] Syndrome symptoms a few weeks later. He got his blood count done and was fine and was severe weakness. Severe weakness in legs and some in arms w/no reflexs and some facilitations whcih he doens't have it any more. He had infusions of immunoglobulin and it seemed to help a bit at first. He has an electric WC coming today that he paid for out of pocket that he plans to use when out of the house. He can recover from activity w/5 -10 min of rest. He has some ankle swelling that started aobut 6 months ago but labs have all been normal for possible CHF. Pt reports he gets SOB and weakness. He has postural hypotension. Pt reports some gradual minor memory loss. Pt has B hip replacement and a microdiscectomy L4-5. No falls . Pt sees Oncology every 3 weeks and gets a subcutaneous shot every 3 weeks which inc red blood cells. Prior to these diagnoses (1.5 years ago ), he was sailing, biking, tennis, hiking and walking. Pt reports he can cut about 3 roses then has to sit down d/t fatigue. His chores are very short. Indep w/ADLs. Can only walk 80ft before he has to rest. Prior Treatments and Tests No PT since all of this started Treatment Goals Patient/Caregiver Goals inc tolerance w/walking, inc endurance, be able to get up/ down from ground w/o outside support PT-OP-C Subjective Start: 08/18/21 11:31 Freq: Status: Active Protocol: Document 11/12/21 14:29 MA (Rec: 11/12/21 15:16 MA [id number]) OP-PT Subjective Patient Comments Patient Comments Pt got injection yesterday and feels fatigued. He arrives using cane and states he thinks it helps him walk and feel balanced. He has appt with internal medicine to see if something else is causing his fatigue. PT-OP-D Balance Start: 08/18/21 11:31 Freq: Status: Active Protocol: Document 08/19/21 07:38 [facility] (Rec: 08/19/21 10:23 [facility] [id number]) Balance Tests Dunn Balance Test Dunn Balance Test Score 46/56 PT-OP-E Functional Tests Start: 08/18/21 11:31 Freq: Status: Active Protocol: Document 11/01/21 11:18 [facility] (Rec: 11/01/21 11:58 [facility] [id number]) Functional Tests 6 Minute Walk Test Distance 215ft Comments able to go 1.5 min 30 Second Sit to Stand Test Score 7 Dynamic Gait Index (DGI) Score 17/24 Five Times Sit to Stand Test Score 21 sec PT-OP-G Mobility & Gait Start: 08/18/21 11:31 Freq: Status: Active Protocol: Document 08/19/21 07:38 [facility] (Rec: 08/19/21 10:23 [facility] [id number]) OP Mobility Evaluation Bed Mobility Supine to and from Sit indep Transfers Sit to Stand able to sit to stand indep - chooses to use UEs but can w/o OP Gait Assessment Comments Gait Comments Amb with slow pace and dec push off PT-OP-M Strength Start: 08/18/21 11:31 Freq: Status: Active Protocol: Document 11/01/21 11:18 [facility] (Rec: 11/01/21 11:58 [facility] [id number]) Hip Strength Hip Manual Muscle Testing Right Flexion (L2) 4- Good- Extension (S1) 3 Fair Abduction 4- Good- External Rotation 4- Good- Internal Rotation 4+ Good+ Left Flexion (L2) 4- Good- Extension (S1) 3 Fair Abduction 4- Good- External Rotation 3+ Fair+ Internal Rotation 4+ Good+ Comments goes into flex B w/abd testing Knee Strength Knee Manual Muscle Testing Right Flexion (S2) 5 Normal Extension (L3) 5 Normal Left Flexion (S2) 4+ Good+ Extension (L3) 5 Normal Ankle/Foot Strength Ankle and Foot Manual Muscle Testing Right Dorsiflexion (L4) 5 Normal Plantarflexion (S1) 5 Normal Comments PF tested seated Left Dorsiflexion (L4) 4 Good Plantarflexion (S1) 4+ Good+ PT-OP-Q Treatments Start: 08/18/21 11:31 Freq: Status: Active Protocol: Document 11/12/21 14:29 MA (Rec: 11/12/21 15:16 MA [id number]) Cardio Equipment Recumbent Bicycle Duration (Minutes) 6 Resistance 5 Seat Position 9 Therapeutic Exercises Sitting Exercises DF Sitting Exercise Name dorsiflexion Side bilateral Reps/Minutes x20 Standing Exercises heel raises Standing Exercise Name heel raises and toe raises Side bilateral Reps/Minutes 20 Gait Training Gait Activity Gait Device Used None Level of Assistance SPC, CGA Surface level Distance/Duration 75ftx2 Treatment Focus increasing step width and length Neuro Re-Education Treatment Balance Activities staggered stance Comments rail prn, rock and reach hurdles Comments 1. 6 hurdles step through fwd gait rail prn x2 2. side step over 6 hurdles- 2x Self-Care/Home Management Treatment Education Other Education Education on trying to breathe in through nose, out through mouth, counting to three. Discussion on possibly buying an incentive spirometer to work on breathing at home. PT-OP-T Assessment and Plan Start: 08/18/21 11:31 Freq: Status: Active Protocol: Document 11/12/21 14:29 MA (Rec: 11/12/21 15:16 MA [id number]) Physical Therapy Assessment Goals sit to stand Half-Way Goal (LTG) Pt will be able to complete at least 10 sit to stands in 30 sec to show improved strength and funcitonal ability. 11/01-imprvoed to 7 LTG Duration 01/30/22 balance Half-Way Goal (LTG) Pt will be able to score at least 20/24 on DGI to show dec risk for falls. 11/01-improved to 17 LTG Duration 01/30/22 strength Short Term Goal (STG) Pt will be indep w/HEP STG Duration achieved progresssing as able Toll Operator Goal (LTG) Pt will score at least 4/5 on all LE MMT to show improved strengtht o improve pt's ability to participate in home activities. 09/27-improving 11/01-improved LTG Duration 01/30/22 walking Short Term Goal (STG) Pt willb e able to complete 2 min walk test w/o requriing seated rest break at least 160ft to show improved activity tolerance. 09/27-pt having difficulty w/ SOB more over past 2 weeks. Has been having testing done to determine reason 10/25-able to do 180ft but could only go 1.5 min 11/01-215ft but still only able to go 1.5 min STG Duration 12/02/21 Toll Operator Goal (LTG) Pt will be able to complete 6 min walk test with distance of at least 450ft. LTG Duration 01/30/22 Assessment Summary Assessment Pt arrives to PT with SPC today and is able to use cane properly during gait training. Worked on pt's breathing during rest breaks as pt tends to take short, quick breaths only through his mouth. 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 Discussed possibly asking his Dr for referral for respiratory therapy and buying incentive spirometer to work on breathing. Pt does well with DF exercise in seated but requires heavy cues while standing to avoid flexing forward at waist to compensate for lack of DF. Added seated DF to HEP. Physical Therapy Plan Frequency and Duration Frequency of Treatment 2x/Week Duration of Treatment 3 months Plan of Care Start Date 11/01/21 Plan of Care End Date 01/30/22 Therapeutic Interventions Therapeutic Interventions Aquatic Therapy,Balance Training,Gait Training,Home Exercise Program,Joint Mobilizations,Manual Therapy, Neuromuscular Re-education, Orthotic/Prosthetic Management ,Patient/Caregiver Education, Self-Care/Home Management,Soft Tissue Mobilization,Taping, Therapeutic Activities, Therapeutic Exercises Modalities Cold Pack/Ice Massage,Electric Stimulation,Hot Packs Next Visit Focus/Plan Next Note Type Treatment Note Next Visit Plan See if pt can get referral to respiratory therapy. Continue with recumbant bike d/t dec tolerance to upright bike, work on gait, balance and strength
--- NOTE | 2021-11-24 10:36 | PT.OTN ---
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) Muscle weakness (generalized) (11/24/21) Difficulty in walking, not elsewhere classified (11/24/21) Physical Therapy Treatment Note PT-OP-A Visit Information Start: 08/18/21 11:31 Freq: Status: Active Protocol: Document 11/24/21 09:52 [facility] (Rec: 11/24/21 10:29 [facility] [id number]) Out-Patient Physical Therapy Visit Information Visit Information Visit Type Treatment Note Visit Note 04/05 Visit Start Time 09:49 Visit Stop Time 10:30 Total Visit Minutes 41 Visit Number 22 Number of COMPLIANCE SPECIALIST Visits 0 PT-OP-B Current Condition Start: 08/18/21 11:31 Freq: Status: Active Protocol: Document 08/19/21 07:38 [facility] (Rec: 08/19/21 10:23 [facility] [id number]) Current Condition History of Current Condition Onset Date 1.5 years ago Current Complaints weakness History of Current Condition Pt was diagonosed w/ myelofibrosis which comes w/ low hematocrit and platelets and has slowly dec frequency to 4 weeks ago. He had [employer] shot February 08 and developed Guillian Stafford Syndrome symptoms a few weeks later. He got his blood count done and was fine and was severe weakness. Severe weakness in legs and some in arms w/no reflexs and some facilitations whcih he doens't have it any more. He had infusions of immunoglobulin and it seemed to help a bit at first. He has an electric WC coming today that he paid for out of pocket that he plans to use when out of the house. He can recover from activity w/5 -10 min of rest. He has some ankle swelling that started aobut 6 months ago but labs have all been normal for possible CHF. Pt reports he gets SOB and weakness. He has postural hypotension. Pt reports some gradual minor memory loss. Pt has B hip replacement and a microdiscectomy L4-5. No falls . Pt sees Oncology every 3 weeks and gets a subcutaneous shot every 3 weeks which inc red blood cells. Prior to these diagnoses (1.5 years ago ), he was sailing, biking, tennis, hiking and walking. Pt reports he can cut about 3 roses then has to sit down d/t fatigue. His chores are very short. Indep w/ADLs. Can only walk 80ft before he has to rest. Prior Treatments and Tests No PT since all of this started Treatment Goals Patient/Caregiver Goals inc tolerance w/walking, inc endurance, be able to get up/ down from ground w/o outside support PT-OP-C Subjective Start: 08/18/21 11:31 Freq: Status: Active Protocol: Document 11/24/21 09:52 [facility] (Rec: 11/24/21 10:29 [facility] [id number]) OP-PT Subjective Patient Comments Patient Comments Pt reports hemoglobin was 9.1 which is the highest it has been in a while. Notes SOB still difficult. Sees [facility] neurologist next week. Pt is set up for a pulmonary function test from bricklayer apprentice. He is getting set up for CT of chest and abdomen and has a referral for cardio pulm rehab PT-OP-D Balance Start: 08/18/21 11:31 Freq: Status: Active Protocol: Document 08/19/21 07:38 [facility] (Rec: 08/19/21 10:23 [facility] [id number]) Balance Tests Dunn Balance Test Dunn Balance Test Score 46/56 PT-OP-E Functional Tests Start: 08/18/21 11:31 Freq: Status: Active Protocol: Document 11/01/21 11:18 [facility] (Rec: 11/01/21 11:58 [facility] [id number]) Functional Tests 6 Minute Walk Test Distance 215ft Comments able to go 1.5 min 30 Second Sit to Stand Test Score 7 Dynamic Gait Index (DGI) Score 17/24 Five Times Sit to Stand Test Score 21 sec PT-OP-G Mobility & Gait Start: 08/18/21 11:31 Freq: Status: Active Protocol: Document 08/19/21 07:38 [facility] (Rec: 08/19/21 10:23 [facility] [id number]) OP Mobility Evaluation Bed Mobility Supine to and from Sit indep Transfers Sit to Stand able to sit to stand indep - chooses to use UEs but can w/o OP Gait Assessment Comments Gait Comments Amb with slow pace and dec push off PT-OP-M Strength Start: 08/18/21 11:31 Freq: Status: Active Protocol: Document 11/01/21 11:18 [facility] (Rec: 11/01/21 11:58 [facility] [id number]) Hip Strength Hip Manual Muscle Testing Right Flexion (L2) 4- Good- Extension (S1) 3 Fair Abduction 4- Good- External Rotation 4- Good- Internal Rotation 4+ Good+ Left Flexion (L2) 4- Good- Extension (S1) 3 Fair Abduction 4- Good- External Rotation 3+ Fair+ Internal Rotation 4+ Good+ Comments goes into flex B w/abd testing Knee Strength Knee Manual Muscle Testing Right Flexion (S2) 5 Normal Extension (L3) 5 Normal Left Flexion (S2) 4+ Good+ Extension (L3) 5 Normal Ankle/Foot Strength Ankle and Foot Manual Muscle Testing Right Dorsiflexion (L4) 5 Normal Plantarflexion (S1) 5 Normal Comments PF tested seated Left Dorsiflexion (L4) 4 Good Plantarflexion (S1) 4+ Good+ PT-OP-Q Treatments Start: 08/18/21 11:31 Freq: Status: Active Protocol: Document 11/24/21 09:52 [facility] (Rec: 11/24/21 10:29 [facility] [id number]) Gym Equipment Shuttle Recovery Bilateral Squats Resistance 112# Shuttle Recovery Platform Stable Reps/Time 2x12 Therapeutic Exercises Standing Exercises heel raises Standing Exercise Name heel raises and toe raises Side bilateral Reps/Minutes 2x10 sit to stand Standing Exercise Name pt able to complete 6 before needing a break Side bilateral Reps/Minutes 2x6 Comments no hands Neuro Re-Education Treatment Balance Activities speed change Details fast/slow Reps/Duration 2x50ft EC Details fwd/back walk Reps/Duration 20ft x2 ea head turns Reps/Duration 2x50ft each Comments 1. horizontal head turns 2. vertical head turns rest btw hurdles Comments 1. 6 hurdles step through fwd gait rail prn x5 2. side step over 6 hurdles- 2x PT-OP-T Assessment and Plan Start: 08/18/21 11:31 Freq: Status: Active Protocol: Document 11/24/21 09:52 [facility] (Rec: 11/24/21 10:29 [facility] [id number]) Physical Therapy Assessment Goals sit to stand Nursing Home Goal (LTG) Pt will be able to complete at least 10 sit to stands in 30 sec to show improved strength and funcitonal ability. 11/01-imprvoed to 7 LTG Duration 01/30/22 balance Nursing Home Goal (LTG) Pt will be able to score at least 20/24 on DGI to show dec risk for falls. 11/01-improved to 17 LTG Duration 01/30/22 strength Short Term Goal (STG) Pt will be indep w/HEP STG Duration achieved progresssing as able Tower Watchman Goal (LTG) Pt will score at least 4/5 on all LE MMT to show improved strengtht o improve pt's ability to participate in home activities. 09/27-improving 11/01-improved LTG Duration 01/30/22 walking Short Term Goal (STG) Pt willb e able to complete 2 min walk test w/o requriing seated rest break at least 160ft to show improved activity tolerance. 09/27-pt having difficulty w/ SOB more over past 2 weeks. Has been having testing done to determine reason 10/25-able to do 180ft but could only go 1.5 min 11/01-215ft but still only able to go 1.5 min STG Duration 12/02/21 Nursing Home Goal (LTG) Pt will be able to complete 6 min walk test with distance of at least 450ft. LTG Duration 01/30/22 Assessment Summary Assessment Pt required less time in rest break during most of session. He still has dec balance when cued for inc speed duirng dynamic balance activities. Physical Therapy Plan Frequency and Duration Frequency of Treatment 2x/Week Duration of Treatment 3 months Plan of Care Start Date 11/01/21 Plan of Care End Date 01/30/22 Next Visit Focus/Plan Next Note Type Treatment Note Next Visit Plan Continue with recumbant bike d /t dec tolerance to upright bike, work on gait, balance and strength
--- NOTE | 2021-11-29 12:59 | PT.OTN ---
Current Diagnoses Guillain-Indio syndrome (11/29/21) Muscle weakness (generalized) (11/29/21) Difficulty in walking, not elsewhere classified (11/29/21) Physical Therapy Treatment Note PT-OP-A Visit Information Start: 08/18/21 11:31 Freq: Status: Active Protocol: Document 11/29/21 11:27 [facility] (Rec: 11/29/21 12:03 [facility] [id number]) Out-Patient Physical Therapy Visit Information Visit Information Visit Type Treatment Note Visit Note 05/06 Visit Start Time 11:19 Visit Stop Time 12:00 Total Visit Minutes 41 Visit Number 23 Number of FARM OPERATIONS TECHNICAL DIRECTOR Visits 0 PT-OP-B Current Condition Start: 08/18/21 11:31 Freq: Status: Active Protocol: Document 08/19/21 07:38 [facility] (Rec: 08/19/21 10:23 [facility] [id number]) Current Condition History of Current Condition Onset Date 1.5 years ago Current Complaints weakness History of Current Condition Pt was diagonosed w/ myelofibrosis which comes w/ low hematocrit and platelets and has slowly dec frequency to 4 weeks ago. He had [employer] shot February 08 and developed Guillian [place] Syndrome symptoms a few weeks later. He got his blood count done and was fine and was severe weakness. Severe weakness in legs and some in arms w/no reflexs and some facilitations whcih he doens't have it any more. He had infusions of immunoglobulin and it seemed to help a bit at first. He has an electric WC coming today that he paid for out of pocket that he plans to use when out of the house. He can recover from activity w/5 -10 min of rest. He has some ankle swelling that started aobut 6 months ago but labs have all been normal for possible CHF. Pt reports he gets SOB and weakness. He has postural hypotension. Pt reports some gradual minor memory loss. Pt has B hip replacement and a microdiscectomy L4-5. No falls . Pt sees Oncology every 3 weeks and gets a subcutaneous shot every 3 weeks which inc red blood cells. Prior to these diagnoses (1.5 years ago ), he was sailing, biking, tennis, hiking and walking. Pt reports he can cut about 3 roses then has to sit down d/t fatigue. His chores are very short. Indep w/ADLs. Can only walk 80ft before he has to rest. Prior Treatments and Tests No PT since all of this started Treatment Goals Patient/Caregiver Goals inc tolerance w/walking, inc endurance, be able to get up/ down from ground w/o outside support PT-OP-C Subjective Start: 08/18/21 11:31 Freq: Status: Active Protocol: Document 11/29/21 11:27 [facility] (Rec: 11/29/21 12:03 [facility] [id number]) OP-PT Subjective Patient Comments Patient Comments Pt reprots primary MD called d /t concern w/lab testing so he sees him this PM. Notes he feels way more fatigued today. He required mroe rest on the way in today PT-OP-D Balance Start: 08/18/21 11:31 Freq: Status: Active Protocol: Document 08/19/21 07:38 [facility] (Rec: 08/19/21 10:23 [facility] [id number]) Balance Tests Dunn Balance Test Dunn Balance Test Score 46/56 PT-OP-E Functional Tests Start: 08/18/21 11:31 Freq: Status: Active Protocol: Document 11/01/21 11:18 [facility] (Rec: 11/01/21 11:58 [facility] [id number]) Functional Tests 6 Minute Walk Test Distance 215ft Comments able to go 1.5 min 30 Second Sit to Stand Test Score 7 Dynamic Gait Index (DGI) Score 17/24 Five Times Sit to Stand Test Score 21 sec PT-OP-G Mobility & Gait Start: 08/18/21 11:31 Freq: Status: Active Protocol: Document 08/19/21 07:38 [facility] (Rec: 08/19/21 10:23 [facility] [id number]) OP Mobility Evaluation Bed Mobility Supine to and from Sit indep Transfers Sit to Stand able to sit to stand indep - chooses to use UEs but can w/o OP Gait Assessment Comments Gait Comments Amb with slow pace and dec push off PT-OP-M Strength Start: 08/18/21 11:31 Freq: Status: Active Protocol: Document 11/01/21 11:18 [facility] (Rec: 11/01/21 11:58 [facility] [id number]) Hip Strength Hip Manual Muscle Testing Right Flexion (L2) 4- Good- Extension (S1) 3 Fair Abduction 4- Good- External Rotation 4- Good- Internal Rotation 4+ Good+ Left Flexion (L2) 4- Good- Extension (S1) 3 Fair Abduction 4- Good- External Rotation 3+ Fair+ Internal Rotation 4+ Good+ Comments goes into flex B w/abd testing Knee Strength Knee Manual Muscle Testing Right Flexion (S2) 5 Normal Extension (L3) 5 Normal Left Flexion (S2) 4+ Good+ Extension (L3) 5 Normal Ankle/Foot Strength Ankle and Foot Manual Muscle Testing Right Dorsiflexion (L4) 5 Normal Plantarflexion (S1) 5 Normal Comments PF tested seated Left Dorsiflexion (L4) 4 Good Plantarflexion (S1) 4+ Good+ PT-OP-Q Treatments Start: 08/18/21 11:31 Freq: Status: Active Protocol: Document 11/29/21 11:27 [facility] (Rec: 11/29/21 12:03 [facility] [id number]) Gym Equipment Shuttle Recovery Bilateral Squats Resistance 112# Shuttle Recovery Platform Stable Reps/Time 2x10 Therapeutic Exercises Sitting Exercises DF Sitting Exercise Name dorsiflexion/PF Side bilateral Reps/Minutes x20 Knee flex Side bilateral Equipment Used L1 Reps/Minutes 12 ea knee ext Side bilateral Equipment Used L1 Reps/Minutes 15 january Side bilateral Equipment Used L3 Reps/Minutes 20 hip ER Side bilateral Equipment Used L3 Reps/Minutes 1x30 Standing Exercises sit to stand Standing Exercise Name pt able to complete 5 before needing a break Side bilateral Reps/Minutes 2x5 Comments no hands Neuro Re-Education Treatment Balance Activities EC Details fwd/back walk Reps/Duration 20ft x2 ea rocker board Equipment rocker board Comments 1. EC trails standing fwd 2. fwd/back tip EO staggered stance Comments w/head turns B PT-OP-T Assessment and Plan Start: 08/18/21 11:31 Freq: Status: Active Protocol: Document 11/29/21 11:27 [facility] (Rec: 11/29/21 12:03 [facility] [id number]) Physical Therapy Assessment Goals sit to stand Detention Goal (LTG) Pt will be able to complete at least 10 sit to stands in 30 sec to show improved strength and funcitonal ability. 11/01-imprvoed to 7 LTG Duration 01/30/22 balance Abrasive Grinder Goal (LTG) Pt will be able to score at least 20/24 on DGI to show dec risk for falls. 11/01-improved to 17 LTG Duration 01/30/22 strength Short Term Goal (STG) Pt will be indep w/HEP STG Duration achieved progresssing as able Detention Goal (LTG) Pt will score at least 4/5 on all LE MMT to show improved strengtht o improve pt's ability to participate in home activities. 09/27-improving 11/01-improved LTG Duration 01/30/22 walking Short Term Goal (STG) Pt willb e able to complete 2 min walk test w/o requriing seated rest break at least 160ft to show improved activity tolerance. 09/27-pt having difficulty w/ SOB more over past 2 weeks. Has been having testing done to determine reason 10/25-able to do 180ft but could only go 1.5 min 11/01-215ft but still only able to go 1.5 min STG Duration 12/02/21 Detention Goal (LTG) Pt will be able to complete 6 min walk test with distance of at least 450ft. LTG Duration 01/30/22 Assessment Summary Assessment Pt did seated exercise during recovery time d/t inc time seated required to catch breath today w/notably weaker today w/less activity tolerance. Pt following up w/ MD later today. Physical Therapy Plan Frequency and Duration Frequency of Treatment 2x/Week Duration of Treatment 3 months Plan of Care Start Date 11/01/21 Plan of Care End Date 01/30/22 Next Visit Focus/Plan Next Note Type Treatment Note Next Visit Plan Continue with recumbant bike d /t dec tolerance to upright bike, work on gait, balance and strength
--- NOTE | 2021-12-01 12:57 | PT.OTN ---
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) Muscle weakness (generalized) (12/01/21) Difficulty in walking, not elsewhere classified (12/01/21) Physical Therapy Treatment Note PT-OP-A Visit Information Start: 08/18/21 11:31 Freq: Status: Active Protocol: Document 12/01/21 11:34 [facility] (Rec: 12/01/21 11:59 [facility] [id number]) Out-Patient Physical Therapy Visit Information Visit Information Visit Type Treatment Note Visit Note 06/05 Visit Start Time 11:20 Visit Stop Time 12:00 Total Visit Minutes 40 Visit Number 24 Number of INSPECTOR BRAKE LINING Visits 0 PT-OP-B Current Condition Start: 08/18/21 11:31 Freq: Status: Active Protocol: Document 08/19/21 07:38 [facility] (Rec: 08/19/21 10:23 [facility] [id number]) Current Condition History of Current Condition Onset Date 1.5 years ago Current Complaints weakness History of Current Condition Pt was diagonosed w/ myelofibrosis which comes w/ low hematocrit and platelets and has slowly dec frequency to 4 weeks ago. He had [email or web address] shot February 08 and developed Guillian [place] Syndrome symptoms a few weeks later. He got his blood count done and was fine and was severe weakness. Severe weakness in legs and some in arms w/no reflexs and some facilitations whcih he doens't have it any more. He had infusions of immunoglobulin and it seemed to help a bit at first. He has an electric WC coming today that he paid for out of pocket that he plans to use when out of the house. He can recover from activity w/5 -10 min of rest. He has some ankle swelling that started aobut 6 months ago but labs have all been normal for possible CHF. Pt reports he gets SOB and weakness. He has postural hypotension. Pt reports some gradual minor memory loss. Pt has B hip replacement and a microdiscectomy L4-5. No falls . Pt sees Oncology every 3 weeks and gets a subcutaneous shot every 3 weeks which inc red blood cells. Prior to these diagnoses (1.5 years ago ), he was sailing, biking, tennis, hiking and walking. Pt reports he can cut about 3 roses then has to sit down d/t fatigue. His chores are very short. Indep w/ADLs. Can only walk 80ft before he has to rest. Prior Treatments and Tests No PT since all of this started Treatment Goals Patient/Caregiver Goals inc tolerance w/walking, inc endurance, be able to get up/ down from ground w/o outside support PT-OP-C Subjective Start: 08/18/21 11:31 Freq: Status: Active Protocol: Document 12/01/21 11:34 [facility] (Rec: 12/01/21 11:59 [facility] [id number]) OP-PT Subjective Patient Comments Patient Comments Pt reports feeling better today. He is getting a lot of imaging on Monday. PT-OP-D Balance Start: 08/18/21 11:31 Freq: Status: Active Protocol: Document 08/19/21 07:38 [facility] (Rec: 08/19/21 10:23 [facility] [id number]) Balance Tests Dunn Balance Test Dunn Balance Test Score 46/56 PT-OP-E Functional Tests Start: 08/18/21 11:31 Freq: Status: Active Protocol: Document 11/01/21 11:18 [facility] (Rec: 11/01/21 11:58 [facility] [id number]) Functional Tests 6 Minute Walk Test Distance 215ft Comments able to go 1.5 min 30 Second Sit to Stand Test Score 7 Dynamic Gait Index (DGI) Score 17/24 Five Times Sit to Stand Test Score 21 sec PT-OP-G Mobility & Gait Start: 08/18/21 11:31 Freq: Status: Active Protocol: Document 08/19/21 07:38 [facility] (Rec: 08/19/21 10:23 [facility] [id number]) OP Mobility Evaluation Bed Mobility Supine to and from Sit indep Transfers Sit to Stand able to sit to stand indep - chooses to use UEs but can w/o OP Gait Assessment Comments Gait Comments Amb with slow pace and dec push off PT-OP-M Strength Start: 08/18/21 11:31 Freq: Status: Active Protocol: Document 11/01/21 11:18 [facility] (Rec: 11/01/21 11:58 [facility] [id number]) Hip Strength Hip Manual Muscle Testing Right Flexion (L2) 4- Good- Extension (S1) 3 Fair Abduction 4- Good- External Rotation 4- Good- Internal Rotation 4+ Good+ Left Flexion (L2) 4- Good- Extension (S1) 3 Fair Abduction 4- Good- External Rotation 3+ Fair+ Internal Rotation 4+ Good+ Comments goes into flex B w/abd testing Knee Strength Knee Manual Muscle Testing Right Flexion (S2) 5 Normal Extension (L3) 5 Normal Left Flexion (S2) 4+ Good+ Extension (L3) 5 Normal Ankle/Foot Strength Ankle and Foot Manual Muscle Testing Right Dorsiflexion (L4) 5 Normal Plantarflexion (S1) 5 Normal Comments PF tested seated Left Dorsiflexion (L4) 4 Good Plantarflexion (S1) 4+ Good+ PT-OP-Q Treatments Start: 08/18/21 11:31 Freq: Status: Active Protocol: Document 12/01/21 11:34 [facility] (Rec: 12/01/21 11:59 [facility] [id number]) Cardio Equipment Recumbent Bicycle Duration (Minutes) 7 Resistance 5 Seat Position 10 Therapeutic Exercises Sitting Exercises DF Sitting Exercise Name dorsiflexion/PF Side bilateral Reps/Minutes 30 Knee flex Side bilateral Equipment Used L1 Reps/Minutes 12 ea knee ext Side bilateral Equipment Used L1 Reps/Minutes 15 january Side bilateral Equipment Used L3 Reps/Minutes 30 hip ER Side bilateral Equipment Used L3 Reps/Minutes 1x30 Standing Exercises hip ext Standing Exercise Name fwd/back walk Side bilateral Equipment Used red band Reps/Minutes 20ft hip abd Standing Exercise Name side step Side bilateral Equipment Used red band Reps/Minutes 20ft ea Neuro Re-Education Treatment Balance Activities speed change Details fast/slow Reps/Duration 2x50ft hurdles Comments 1. 6 hurdles step through fwd gait rail prn x8 2. side step over 6 hurdles- 2x PT-OP-T Assessment and Plan Start: 08/18/21 11:31 Freq: Status: Active Protocol: Document 12/01/21 11:34 [facility] (Rec: 12/01/21 11:59 [facility] [id number]) Physical Therapy Assessment Goals sit to stand Experimental Welder Goal (LTG) Pt will be able to complete at least 10 sit to stands in 30 sec to show improved strength and funcitonal ability. 11/01-imprvoed to 7 LTG Duration 01/30/22 balance Experimental Welder Goal (LTG) Pt will be able to score at least 20/24 on DGI to show dec risk for falls. 11/01-improved to 17 LTG Duration 01/30/22 strength Short Term Goal (STG) Pt will be indep w/HEP STG Duration achieved progresssing as able Shelter Goal (LTG) Pt will score at least 4/5 on all LE MMT to show improved strengtht o improve pt's ability to participate in home activities. 09/27-improving 11/01-improved LTG Duration 01/30/22 walking Short Term Goal (STG) Pt willb e able to complete 2 min walk test w/o requriing seated rest break at least 160ft to show improved activity tolerance. 09/27-pt having difficulty w/ SOB more over past 2 weeks. Has been having testing done to determine reason 10/25-able to do 180ft but could only go 1.5 min 11/01-215ft but still only able to go 1.5 min STG Duration 12/02/21 Experimental Welder Goal (LTG) Pt will be able to complete 6 min walk test with distance of at least 450ft. LTG Duration 01/30/22 Assessment Summary Assessment Pt had more tolerance today than monday, more like his recent typical activity tolerance. he required less rest breaks and seated exercises were used as active rest w/smaller seated actual rest breaks today. Showing improved stability in SL on hurdles. Physical Therapy Plan Frequency and Duration Frequency of Treatment 2x/Week Duration of Treatment 3 months Plan of Care Start Date 11/01/21 Plan of Care End Date 01/30/22 Next Visit Focus/Plan Next Note Type Treatment Note Next Visit Plan Continue with recumbant bike d /t dec tolerance to upright bike, work on gait, balance and strength
--- NOTE | 2021-12-06 12:49 | PT.OTN ---
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) Muscle weakness (generalized) (12/06/21) Difficulty in walking, not elsewhere classified (12/06/21) Physical Therapy Treatment Note PT-OP-A Visit Information Start: 08/18/21 11:31 Freq: Status: Active Protocol: Document 12/06/21 11:53 [facility] (Rec: 12/06/21 12:48 [facility] [id number]) Out-Patient Physical Therapy Visit Information Visit Information Visit Type Treatment Note Visit Note 07/06 Visit Start Time 11:55 Visit Stop Time 12:40 Total Visit Minutes 45 Visit Number 25 Number of TERMITE RENEWAL INSPECTOR Visits 1 PT-OP-B Current Condition Start: 08/18/21 11:31 Freq: Status: Active Protocol: Document 08/19/21 07:38 [facility] (Rec: 08/19/21 10:23 [facility] [id number]) Current Condition History of Current Condition Onset Date 1.5 years ago Current Complaints weakness History of Current Condition Pt was diagonosed w/ myelofibrosis which comes w/ low hematocrit and platelets and has slowly dec frequency to 4 weeks ago. He had [employer] shot February 08 and developed Guillian [place] Syndrome symptoms a few weeks later. He got his blood count done and was fine and was severe weakness. Severe weakness in legs and some in arms w/no reflexs and some facilitations whcih he doens't have it any more. He had infusions of immunoglobulin and it seemed to help a bit at first. He has an electric WC coming today that he paid for out of pocket that he plans to use when out of the house. He can recover from activity w/5 -10 min of rest. He has some ankle swelling that started aobut 6 months ago but labs have all been normal for possible CHF. Pt reports he gets SOB and weakness. He has postural hypotension. Pt reports some gradual minor memory loss. Pt has B hip replacement and a microdiscectomy L4-5. No falls . Pt sees Oncology every 3 weeks and gets a subcutaneous shot every 3 weeks which inc red blood cells. Prior to these diagnoses (1.5 years ago ), he was sailing, biking, tennis, hiking and walking. Pt reports he can cut about 3 roses then has to sit down d/t fatigue. His chores are very short. Indep w/ADLs. Can only walk 80ft before he has to rest. Prior Treatments and Tests No PT since all of this started Treatment Goals Patient/Caregiver Goals inc tolerance w/walking, inc endurance, be able to get up/ down from ground w/o outside support PT-OP-C Subjective Start: 08/18/21 11:31 Freq: Status: Active Protocol: Document 12/06/21 11:53 [facility] (Rec: 12/06/21 12:48 [facility] [id number]) OP-PT Subjective Patient Comments Patient Comments Pt had EMG done and thinks he has nerve disease in LEs. He will have more bloodwork done soon. He has CT of chest and abdomen today as well as an MRI of lumbar spine. PT-OP-D Balance Start: 08/18/21 11:31 Freq: Status: Active Protocol: Document 08/19/21 07:38 [facility] (Rec: 08/19/21 10:23 [facility] [id number]) Balance Tests Dunn Balance Test Dunn Balance Test Score 46/56 PT-OP-E Functional Tests Start: 08/18/21 11:31 Freq: Status: Active Protocol: Document 11/01/21 11:18 [facility] (Rec: 11/01/21 11:58 [facility] [id number]) Functional Tests 6 Minute Walk Test Distance 215ft Comments able to go 1.5 min 30 Second Sit to Stand Test Score 7 Dynamic Gait Index (DGI) Score 17/24 Five Times Sit to Stand Test Score 21 sec PT-OP-G Mobility & Gait Start: 08/18/21 11:31 Freq: Status: Active Protocol: Document 08/19/21 07:38 [facility] (Rec: 08/19/21 10:23 [facility] [id number]) OP Mobility Evaluation Bed Mobility Supine to and from Sit indep Transfers Sit to Stand able to sit to stand indep - chooses to use UEs but can w/o OP Gait Assessment Comments Gait Comments Amb with slow pace and dec push off PT-OP-M Strength Start: 08/18/21 11:31 Freq: Status: Active Protocol: Document 11/01/21 11:18 [facility] (Rec: 11/01/21 11:58 [facility] [id number]) Hip Strength Hip Manual Muscle Testing Right Flexion (L2) 4- Good- Extension (S1) 3 Fair Abduction 4- Good- External Rotation 4- Good- Internal Rotation 4+ Good+ Left Flexion (L2) 4- Good- Extension (S1) 3 Fair Abduction 4- Good- External Rotation 3+ Fair+ Internal Rotation 4+ Good+ Comments goes into flex B w/abd testing Knee Strength Knee Manual Muscle Testing Right Flexion (S2) 5 Normal Extension (L3) 5 Normal Left Flexion (S2) 4+ Good+ Extension (L3) 5 Normal Ankle/Foot Strength Ankle and Foot Manual Muscle Testing Right Dorsiflexion (L4) 5 Normal Plantarflexion (S1) 5 Normal Comments PF tested seated Left Dorsiflexion (L4) 4 Good Plantarflexion (S1) 4+ Good+ PT-OP-Q Treatments Start: 08/18/21 11:31 Freq: Status: Active Protocol: Document 12/06/21 11:53 [facility] (Rec: 12/06/21 12:48 [facility] [id number]) Cardio Equipment Recumbent Bicycle Duration (Minutes) 7 Resistance 5 Seat Position 10 Therapeutic Exercises Sitting Exercises DF Sitting Exercise Name dorsiflexion/PF Side bilateral Reps/Minutes 30 Knee flex Side bilateral Equipment Used L1 Reps/Minutes 2x10 knee ext Side bilateral Equipment Used L1 Reps/Minutes 2x10 hip ER Side bilateral Equipment Used L3 Reps/Minutes 2x15 Standing Exercises heel raises Standing Exercise Name heel raises and toe raises Side bilateral Reps/Minutes 2x10 sit to stand Standing Exercise Name pt able to complete 8 before needing a break Side bilateral Comments no hands Neuro Re-Education Treatment Balance Activities Taps Details alt toe taps on 6 cone Reps/Duration 30x Comments single hand assist on rail PT-OP-T Assessment and Plan Start: 08/18/21 11:31 Freq: Status: Active Protocol: Document 12/06/21 11:53 [facility] (Rec: 12/06/21 12:48 [facility] [id number]) Physical Therapy Assessment Goals sit to stand Art Librarian Goal (LTG) Pt will be able to complete at least 10 sit to stands in 30 sec to show improved strength and funcitonal ability. 11/01-imprvoed to 7 LTG Duration 01/30/22 balance Usp Goal (LTG) Pt will be able to score at least 20/24 on DGI to show dec risk for falls. 11/01-improved to 17 LTG Duration 01/30/22 strength Short Term Goal (STG) Pt will be indep w/HEP STG Duration achieved progresssing as able Usp Goal (LTG) Pt will score at least 4/5 on all LE MMT to show improved strengtht o improve pt's ability to participate in home activities. 09/27-improving 11/01-improved LTG Duration 01/30/22 walking Short Term Goal (STG) Pt willb e able to complete 2 min walk test w/o requriing seated rest break at least 160ft to show improved activity tolerance. 09/27-pt having difficulty w/ SOB more over past 2 weeks. Has been having testing done to determine reason 10/25-able to do 180ft but could only go 1.5 min 11/01-215ft but still only able to go 1.5 min STG Duration 12/02/21 Usp Goal (LTG) Pt will be able to complete 6 min walk test with distance of at least 450ft. LTG Duration 01/30/22 Assessment Summary Assessment Pt continues to require frequent rest breaks during all standing activities and is unable to walk more than ~30 ft without requiring a seated break. He has multiple doctors appts this week to continue trying to find a diagnosis for LE weakness and SOB. Goldy does well with all seated exercises and can complete more reps in seated vs standing. He completes 8 sit<> stands this session vs 5 sit<> stands last session. After completing sit<>stands pt feels light-headed and requires longer rest break. PT reminds pt to not push himself to light-headed level during remaining standing exercises. Physical Therapy Plan Frequency and Duration Frequency of Treatment 2x/Week Duration of Treatment 3 months Plan of Care Start Date 11/01/21 Plan of Care End Date 01/30/22 Therapeutic Interventions Therapeutic Interventions Aquatic Therapy,Balance Training,Gait Training,Home Exercise Program,Joint Mobilizations,Manual Therapy, Neuromuscular Re-education, Orthotic/Prosthetic Management ,Patient/Caregiver Education, Self-Care/Home Management,Soft Tissue Mobilization,Taping, Therapeutic Activities, Therapeutic Exercises Modalities Cold Pack/Ice Massage,Electric Stimulation,Hot Packs Next Visit Focus/Plan Next Note Type Treatment Note Next Visit Plan Continue with recumbant bike d /t dec tolerance to upright bike, work on gait, balance and strength
--- NOTE | 2021-12-08 15:20 | PT.OTN ---
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) Muscle weakness (generalized) (12/08/21) Difficulty in walking, not elsewhere classified (12/08/21) Physical Therapy Treatment Note PT-OP-A Visit Information Start: 08/18/21 11:31 Freq: Status: Active Protocol: Document 12/08/21 14:10 MA (Rec: 12/08/21 15:20 MA [id number]) Out-Patient Physical Therapy Visit Information Visit Information Visit Type Treatment Note Visit Note 08/06 Visit Start Time 14:30 Visit Stop Time 15:15 Total Visit Minutes 45 Visit Number 26 Number of ENGINEERING SECRETARY Visits 2 PT-OP-B Current Condition Start: 08/18/21 11:31 Freq: Status: Active Protocol: Document 08/19/21 07:38 [facility] (Rec: 08/19/21 10:23 [facility] [id number]) Current Condition History of Current Condition Onset Date 1.5 years ago Current Complaints weakness History of Current Condition Pt was diagonosed w/ myelofibrosis which comes w/ low hematocrit and platelets and has slowly dec frequency to 4 weeks ago. He had [employer] shot February 08 and developed Guillian Durant Syndrome symptoms a few weeks later. He got his blood count done and was fine and was severe weakness. Severe weakness in legs and some in arms w/no reflexs and some facilitations whcih he doens't have it any more. He had infusions of immunoglobulin and it seemed to help a bit at first. He has an electric WC coming today that he paid for out of pocket that he plans to use when out of the house. He can recover from activity w/5 -10 min of rest. He has some ankle swelling that started aobut 6 months ago but labs have all been normal for possible CHF. Pt reports he gets SOB and weakness. He has postural hypotension. Pt reports some gradual minor memory loss. Pt has B hip replacement and a microdiscectomy L4-5. No falls . Pt sees Oncology every 3 weeks and gets a subcutaneous shot every 3 weeks which inc red blood cells. Prior to these diagnoses (1.5 years ago ), he was sailing, biking, tennis, hiking and walking. Pt reports he can cut about 3 roses then has to sit down d/t fatigue. His chores are very short. Indep w/ADLs. Can only walk 80ft before he has to rest. Prior Treatments and Tests No PT since all of this started Treatment Goals Patient/Caregiver Goals inc tolerance w/walking, inc endurance, be able to get up/ down from ground w/o outside support PT-OP-C Subjective Start: 08/18/21 11:31 Freq: Status: Active Protocol: Document 12/08/21 14:10 MA (Rec: 12/08/21 15:20 MA [id number]) OP-PT Subjective Patient Comments Patient Comments Pt had infusion today before PT. He is going to get results from Monday's tests after therapy today. PT-OP-D Balance Start: 08/18/21 11:31 Freq: Status: Active Protocol: Document 08/19/21 07:38 [facility] (Rec: 08/19/21 10:23 [facility] [id number]) Balance Tests Dunn Balance Test Dunn Balance Test Score 46/56 PT-OP-E Functional Tests Start: 08/18/21 11:31 Freq: Status: Active Protocol: Document 11/01/21 11:18 [facility] (Rec: 11/01/21 11:58 [facility] [id number]) Functional Tests 6 Minute Walk Test Distance 215ft Comments able to go 1.5 min 30 Second Sit to Stand Test Score 7 Dynamic Gait Index (DGI) Score 17/24 Five Times Sit to Stand Test Score 21 sec PT-OP-G Mobility & Gait Start: 08/18/21 11:31 Freq: Status: Active Protocol: Document 08/19/21 07:38 [facility] (Rec: 08/19/21 10:23 [facility] [id number]) OP Mobility Evaluation Bed Mobility Supine to and from Sit indep Transfers Sit to Stand able to sit to stand indep - chooses to use UEs but can w/o OP Gait Assessment Comments Gait Comments Amb with slow pace and dec push off PT-OP-M Strength Start: 08/18/21 11:31 Freq: Status: Active Protocol: Document 11/01/21 11:18 [facility] (Rec: 11/01/21 11:58 [facility] [id number]) Hip Strength Hip Manual Muscle Testing Right Flexion (L2) 4- Good- Extension (S1) 3 Fair Abduction 4- Good- External Rotation 4- Good- Internal Rotation 4+ Good+ Left Flexion (L2) 4- Good- Extension (S1) 3 Fair Abduction 4- Good- External Rotation 3+ Fair+ Internal Rotation 4+ Good+ Comments goes into flex B w/abd testing Knee Strength Knee Manual Muscle Testing Right Flexion (S2) 5 Normal Extension (L3) 5 Normal Left Flexion (S2) 4+ Good+ Extension (L3) 5 Normal Ankle/Foot Strength Ankle and Foot Manual Muscle Testing Right Dorsiflexion (L4) 5 Normal Plantarflexion (S1) 5 Normal Comments PF tested seated Left Dorsiflexion (L4) 4 Good Plantarflexion (S1) 4+ Good+ PT-OP-Q Treatments Start: 08/18/21 11:31 Freq: Status: Active Protocol: Document 12/08/21 14:10 MA (Rec: 12/08/21 15:20 MA [id number]) Cardio Equipment Recumbent Bicycle Duration (Minutes) 7 Resistance 5 Seat Position 10 Therapeutic Exercises Standing Exercises squat Side bilateral Reps/Minutes 10 Other Exercises 2 min walk test Other Exercise Name 139 ft before seated rest break at 1 min 32 sec Neuro Re-Education Treatment Balance Activities bosu Reps/Duration 4' Comments 1. step ups 2. toe taps fwd & lateral head turns Reps/Duration 2x20ft Comments 1. horizontal head turns 2. vertical head turns rest btw hurdles Comments 1. 6 hurdles step through fwd gait rail prn x8 2. side step over 6 hurdles- 2x foam Surface blue Equipment PRN bar Comments NBOS & staggered stance 1. head turns 2. EC Self-Care/Home Management Treatment Education Patient Education Home Exercise Program Other Education Educated pt on keeping up with HEP. Pt feels his muscles are wasting in his legs. Discussed trying to find a recumbant bike at the [employer] gym or possibly buying an under desk floor bike since the recumbant bike is the only cardio equipment pt can do without increased SOB. Pt has electric bike at home but therapist feels pt is unsafe to use electric bike due to balance deficits. PT-OP-T Assessment and Plan Start: 08/18/21 11:31 Freq: Status: Active Protocol: Document 12/08/21 14:10 MA (Rec: 12/08/21 15:20 MA [id number]) Physical Therapy Assessment Goals sit to stand Extruder Tender Goal (LTG) Pt will be able to complete at least 10 sit to stands in 30 sec to show improved strength and funcitonal ability. 11/01-imprvoed to 7 LTG Duration 01/30/22 balance Extruder Tender Goal (LTG) Pt will be able to score at least 20/24 on DGI to show dec risk for falls. 11/01-improved to 17 LTG Duration 01/30/22 strength Short Term Goal (STG) Pt will be indep w/HEP STG Duration achieved progresssing as able Extruder Tender Goal (LTG) Pt will score at least 4/5 on all LE MMT to show improved strengtht o improve pt's ability to participate in home activities. 09/27-improving 11/01-improved LTG Duration 01/30/22 walking Short Term Goal (STG) Pt willb e able to complete 2 min walk test w/o requriing seated rest break at least 160ft to show improved activity tolerance. 09/27-pt having difficulty w/ SOB more over past 2 weeks. Has been having testing done to determine reason 10/25-able to do 180ft but could only go 1.5 min 11/01-215ft but still only able to go 1.5 min STG Duration 12/02/21 Group Home Goal (LTG) Pt will be able to complete 6 min walk test with distance of at least 450ft. LTG Duration 01/30/22 Assessment Summary Assessment Pt felt well enough to complete 2 min walk test again today. He completes 139 ft before requiring seated rest break and 146 ft total in two minutes. He does well with all balance challenges today and is able to complete several exercises using the bosu with occassional Mod A for LOB. during head turns or EC challenges. Physical Therapy Plan Frequency and Duration Frequency of Treatment 2x/Week Duration of Treatment 3 months Plan of Care Start Date 11/01/21 Plan of Care End Date 01/30/22 Therapeutic Interventions Therapeutic Interventions Aquatic Therapy,Balance Training,Gait Training,Home Exercise Program,Joint Mobilizations,Manual Therapy, Neuromuscular Re-education, Orthotic/Prosthetic Management ,Patient/Caregiver Education, Self-Care/Home Management,Soft Tissue Mobilization,Taping, Therapeutic Activities, Therapeutic Exercises Modalities Cold Pack/Ice Massage,Electric Stimulation,Hot Packs Next Visit Focus/Plan Next Note Type Treatment Note Next Visit Plan Pt should have chest and abdomen CT scan results. Further discuss bike options for home use. Encourage HEP compliance while pt is gone for two weeks. Continue with recumbant bike d /t dec tolerance to upright bike, work on gait, balance and strength
--- NOTE | 2021-12-13 13:00 | PT.OTN ---
Addendum entered and electronically signed by Cecile Adkins, ASHLEE 12/13/21 13:04: Pt required seated rests between sets of each activity to recovery from + SOB. 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 Visit Start Time 12:10 Visit Stop Time 13:00 Total Visit Minutes 50 Visit Number 27 Number of AUTOMATION OPERATOR Visits 3 PT-OP-B Current Condition Start: 08/18/21 11:31 Freq: Status: Active Protocol: Document 08/19/21 07:38 [facility] (Rec: 08/19/21 10:23 [facility] [id number]) Current Condition History of Current Condition Onset Date 1.5 years ago Current Complaints weakness History of Current Condition Pt was diagonosed w/ myelofibrosis which comes w/ low hematocrit and platelets and has slowly dec frequency to 4 weeks ago. He had [employer] shot February 08 and developed Guillian Aguirre Syndrome symptoms a few weeks later. He got his blood count done and was fine and was severe weakness. Severe weakness in legs and some in arms w/no reflexs and some facilitations whcih he doens't have it any more. He had infusions of immunoglobulin and it seemed to help a bit at first. He has an electric WC coming today that he paid for out of pocket that he plans to use when out of the house. He can recover from activity w/5 -10 min of rest. He has some ankle swelling that started aobut 6 months ago but labs have all been normal for possible CHF. Pt reports he gets SOB and weakness. He has postural hypotension. Pt reports some gradual minor memory loss. Pt has B hip replacement and a microdiscectomy L4-5. No falls . Pt sees Oncology every 3 weeks and gets a subcutaneous shot every 3 weeks which inc red blood cells. Prior to these diagnoses (1.5 years ago ), he was sailing, biking, tennis, hiking and walking. Pt reports he can cut about 3 roses then has to sit down d/t fatigue. His chores are very short. Indep w/ADLs. Can only walk 80ft before he has to rest. Prior Treatments and Tests No PT since all of this started Treatment Goals Patient/Caregiver Goals inc tolerance w/walking, inc endurance, be able to get up/ down from ground w/o outside support PT-OP-C Subjective Start: 08/18/21 11:31 Freq: Status: Active Protocol: Document 12/13/21 12:10 SP (Rec: 12/13/21 13:03 SP [id number]) OP-PT Subjective Patient Comments Patient Comments Pt reported had his last transfusion last . Mon/ had some immunioglobulin and feeling alot better. He reported nail bed pretty pink today. PT-OP-D Balance Start: 08/18/21 11:31 Freq: Status: Active Protocol: Document 08/19/21 07:38 [facility] (Rec: 08/19/21 10:23 [facility] [id number]) Balance Tests Dunn Balance Test Dunn Balance Test Score 46/56 PT-OP-E Functional Tests Start: 08/18/21 11:31 Freq: Status: Active Protocol: Document 12/13/21 12:10 SP (Rec: 12/13/21 13:03 SP [id number]) Functional Tests 2 Minute Walk Test Distance 206 ft Device Used SPC Comments completed 6MWT 30 Second Sit to Stand Test Score 6.5 reps in 30 sec Comments hands held front, 18 chair Dynamic Gait Index (DGI) Score 17/24 DGI Impairment Rating 20 to <40% Impaired (Score 15- 19) PT-OP-G Mobility & Gait Start: 08/18/21 11:31 Freq: Status: Active Protocol: Document 08/19/21 07:38 [facility] (Rec: 08/19/21 10:23 [facility] [id number]) OP Mobility Evaluation Bed Mobility Supine to and from Sit indep Transfers Sit to Stand able to sit to stand indep - chooses to use UEs but can w/o OP Gait Assessment Comments Gait Comments Amb with slow pace and dec push off PT-OP-M Strength Start: 08/18/21 11:31 Freq: Status: Active Protocol: Document 11/01/21 11:18 [facility] (Rec: 11/01/21 11:58 [facility] [id number]) Hip Strength Hip Manual Muscle Testing Right Flexion (L2) 4- Good- Extension (S1) 3 Fair Abduction 4- Good- External Rotation 4- Good- Internal Rotation 4+ Good+ Left Flexion (L2) 4- Good- Extension (S1) 3 Fair Abduction 4- Good- External Rotation 3+ Fair+ Internal Rotation 4+ Good+ Comments goes into flex B w/abd testing Knee Strength Knee Manual Muscle Testing Right Flexion (S2) 5 Normal Extension (L3) 5 Normal Left Flexion (S2) 4+ Good+ Extension (L3) 5 Normal Ankle/Foot Strength Ankle and Foot Manual Muscle Testing Right Dorsiflexion (L4) 5 Normal Plantarflexion (S1) 5 Normal Comments PF tested seated Left Dorsiflexion (L4) 4 Good Plantarflexion (S1) 4+ Good+ PT-OP-Q Treatments Start: 08/18/21 11:31 Freq: Status: Active Protocol: Document 12/13/21 12:10 SP (Rec: 12/13/21 13:03 SP [id number]) Therapeutic Exercises Sitting Exercises Knee flex Side bilateral Equipment Used AROM between activities Reps/Minutes 2x10 knee ext Side bilateral Equipment Used AROM between activities Reps/Minutes 2x10 Standing Exercises sit to stand Side bilateral Equipment Used 18 mesh chair w/out UE support Reps/Minutes 6.5 reps in 30 sec Comments hands held front Gait Training Gait Activity 2 min walk test Description 2 min walk test Device Used None Level of Assistance None Surface smooth Treatment Focus endurance Comments 1 min 26 seconds- 189 ft 1 min 25 seconds, 193 ft Neuro Re-Education Treatment Balance Activities DGI Surface firm Equipment no Comments EC Details fwd/back walk Equipment light contact glide backing in machine tender to rail as needed Reps/Duration 20ft x2 ea- rest between sets approx 1 min Comments cued ZORAIDA between B foot triangle (base 1, 3rd MTP and calcaneus). carcioca Details rail prn Reps/Duration 2x 20 ft, seated rest between sets approx 1 min SOB recovery Comments CGA, LOB x1 5%A going L. head turns Details during DGI Reps/Duration 40 ft x2 laps, rest between laps Comments 1. horizontal head turns 2. vertical head turns rest btw foam Surface blue Equipment PRN bar Comments NBOS 1 between B feet 1. EC 30 sec 30s PT-OP-T Assessment and Plan Start: 08/18/21 11:31 Freq: Status: Active Protocol: Document 12/13/21 12:10 SP (Rec: 12/13/21 13:03 SP [id number]) Physical Therapy Assessment Goals sit to stand Fdc Goal (LTG) Pt will be able to complete at least 10 sit to stands in 30 sec to show improved strength and funcitonal ability. 11/01-imprvoed to 7 12/13/21: 6.5 reps in 30 sec. LTG Duration 01/30/22 balance Fdc Goal (LTG) Pt will be able to score at least 20/24 on DGI to show dec risk for falls. 11/01-improved to 17 12/13/20: LTG Duration 01/30/22 strength Short Term Goal (STG) Pt will be indep w/HEP STG Duration achieved progresssing as able Rubber Covering Machine Operator Goal (LTG) Pt will score at least 4/5 on all LE MMT to show improved strengtht o improve pt's ability to participate in home activities. 09/27-improving 11/01-improved LTG Duration 01/30/22 walking Short Term Goal (STG) Pt willb e able to complete 2 min walk test w/o requriing seated rest break at least 160ft to show improved activity tolerance. 09/27-pt having difficulty w/ SOB more over past 2 weeks. Has been having testing done to determine reason 10/25-able to do 180ft but could only go 1.5 min 11/01-215ft but still only able to go 1.5 min 12/13/20: completed 206 ft in 2 min using SPC. STG Duration 12/02/21 Rubber Covering Machine Operator Goal (LTG) Pt will be able to complete 6 min walk test with distance of at least 450ft. LTG Duration 01/30/22 Assessment Summary Assessment Pt stated felt more stable during 6MWT able to complete without seated rest 206 ft using SPC for support, SBA. Pt had 1 LOB at top 4th step step to gait without rail, rquired cGA and R HR contact for recovery, step to ascend no HR, descend occasional contact for balance recovery. Pt able to dynamic wt shift f/ b uneven blue foam 30 sec post ed for maintainign ZORAIDA over forfoot and heel like tree in the wind. Pt felt balance activity was helpful for self recovery awareness. Physical Therapy Plan Frequency and Duration Frequency of Treatment 2x/Week Duration of Treatment 3 months Plan of Care Start Date 11/01/21 Plan of Care End Date 01/30/22 Therapeutic Interventions Therapeutic Interventions Aquatic Therapy,Balance Training,Gait Training,Home Exercise Program,Joint Mobilizations,Manual Therapy, Neuromuscular Re-education, Orthotic/Prosthetic Management ,Patient/Caregiver Education, Self-Care/Home Management,Soft Tissue Mobilization,Taping, Therapeutic Activities, Therapeutic Exercises Modalities Cold Pack/Ice Massage,Electric Stimulation,Hot Packs Next Visit Focus/Plan Next Note Type Treatment Note Next Visit Plan Pt should have chest and abdomen CT scan results. Further discuss bike options for home use. Encourage HEP compliance while pt is gone for two weeks. Continue with recumbant bike d /t dec tolerance to upright bike, work on gait, balance and strength
--- NOTE | 2021-12-13 13:26 | PT.OPPN ---
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 Visit Start Time 12:10 Visit Stop Time 13:00 Total Visit Minutes 50 Visit Number 27 Number of DAY CARE HOME PROVIDER Visits 3 PT-OP-B Current Condition Start: 08/18/21 11:31 Freq: Status: Active Protocol: Document 08/19/21 07:38 [facility] (Rec: 08/19/21 10:23 [facility] [id number]) Current Condition History of Current Condition Onset Date 1.5 years ago Current Complaints weakness History of Current Condition Pt was diagonosed w/ myelofibrosis which comes w/ low hematocrit and platelets and has slowly dec frequency to 4 weeks ago. He had [employer] shot February 08 and developed Guillian [place] Syndrome symptoms a few weeks later. He got his blood count done and was fine and was severe weakness. Severe weakness in legs and some in arms w/no reflexs and some facilitations whcih he doens't have it any more. He had infusions of immunoglobulin and it seemed to help a bit at first. He has an electric WC coming today that he paid for out of pocket that he plans to use when out of the house. He can recover from activity w/5 -10 min of rest. He has some ankle swelling that started aobut 6 months ago but labs have all been normal for possible CHF. Pt reports he gets SOB and weakness. He has postural hypotension. Pt reports some gradual minor memory loss. Pt has B hip replacement and a microdiscectomy L4-5. No falls . Pt sees Oncology every 3 weeks and gets a subcutaneous shot every 3 weeks which inc red blood cells. Prior to these diagnoses (1.5 years ago ), he was sailing, biking, tennis, hiking and walking. Pt reports he can cut about 3 roses then has to sit down d/t fatigue. His chores are very short. Indep w/ADLs. Can only walk 80ft before he has to rest. Prior Treatments and Tests No PT since all of this started Treatment Goals Patient/Caregiver Goals inc tolerance w/walking, inc endurance, be able to get up/ down from ground w/o outside support PT-OP-C Subjective Start: 08/18/21 11:31 Freq: Status: Active Protocol: Document 12/13/21 12:10 SP (Rec: 12/13/21 13:03 SP [id number]) OP-PT Subjective Patient Comments Patient Comments Pt reported had his last transfusion last . Mon/ had some immunioglobulin and feeling alot better. He reported nail bed pretty pink today. PT-OP-D Balance Start: 08/18/21 11:31 Freq: Status: Active Protocol: Document 08/19/21 07:38 [facility] (Rec: 08/19/21 10:23 [facility] [id number]) Balance Tests Dunn Balance Test Dunn Balance Test Score 46/56 PT-OP-E Functional Tests Start: 08/18/21 11:31 Freq: Status: Active Protocol: Document 12/13/21 12:10 SP (Rec: 12/13/21 13:03 SP [id number]) Functional Tests 2 Minute Walk Test Distance 206 ft Device Used SPC Comments completed 6MWT 30 Second Sit to Stand Test Score 6.5 reps in 30 sec Comments hands held front, 18 chair Dynamic Gait Index (DGI) Score 17/24 DGI Impairment Rating 20 to <40% Impaired (Score 15- 19) PT-OP-G Mobility & Gait Start: 08/18/21 11:31 Freq: Status: Active Protocol: Document 08/19/21 07:38 [facility] (Rec: 08/19/21 10:23 [facility] [id number]) OP Mobility Evaluation Bed Mobility Supine to and from Sit indep Transfers Sit to Stand able to sit to stand indep - chooses to use UEs but can w/o OP Gait Assessment Comments Gait Comments Amb with slow pace and dec push off PT-OP-M Strength Start: 08/18/21 11:31 Freq: Status: Active Protocol: Document 11/01/21 11:18 LR (Rec: 11/01/21 11:58 [facility] [id number]) Hip Strength Hip Manual Muscle Testing Right Flexion (L2) 4- Good- Extension (S1) 3 Fair Abduction 4- Good- External Rotation 4- Good- Internal Rotation 4+ Good+ Left Flexion (L2) 4- Good- Extension (S1) 3 Fair Abduction 4- Good- External Rotation 3+ Fair+ Internal Rotation 4+ Good+ Comments goes into flex B w/abd testing Knee Strength Knee Manual Muscle Testing Right Flexion (S2) 5 Normal Extension (L3) 5 Normal Left Flexion (S2) 4+ Good+ Extension (L3) 5 Normal Ankle/Foot Strength Ankle and Foot Manual Muscle Testing Right Dorsiflexion (L4) 5 Normal Plantarflexion (S1) 5 Normal Comments PF tested seated Left Dorsiflexion (L4) 4 Good Plantarflexion (S1) 4+ Good+ PT-OP-T Assessment and Plan Start: 08/18/21 11:31 Freq: Status: Active Protocol: Document 12/13/21 16:23 [facility] (Rec: 12/14/21 13:26 [facility] [id number]) Physical Therapy Assessment Goals sit to stand Alf Goal (LTG) Pt will be able to complete at least 10 sit to stands in 30 sec to show improved strength and funcitonal ability. 11/01-imprvoed to 7 12/13/21: 6.5 reps in 30 sec.( rounds to 7) LTG Duration 01/30/22 balance Fire Operations Forester Goal (LTG) Pt will be able to score at least 20/24 on DGI to show dec risk for falls. 11/01-improved to 17 12/13/20: 17/24 LTG Duration 01/30/22 strength Short Term Goal (STG) Pt will be indep w/HEP STG Duration achieved progresssing as able Fire Operations Forester Goal (LTG) Pt will score at least 4/5 on all LE MMT to show improved strengtht o improve pt's ability to participate in home activities. 09/27-improving 11/01-improved LTG Duration 01/30/22 walking Short Term Goal (STG) Pt willb e able to complete 2 min walk test w/o requriing seated rest break at least 160ft to show improved activity tolerance. 09/27-pt having difficulty w/ SOB more over past 2 weeks. Has been having testing done to determine reason 10/25-able to do 180ft but could only go 1.5 min 11/01-215ft but still only able to go 1.5 min 12/13/20: completed 206 ft in 2 min using SPC. STG Duration achieved 12/13 Alf Goal (LTG) Pt will be able to complete 6 min walk test with distance of at least 450ft. LTG Duration 01/30/22 Assessment Summary Assessment Pt was able to complete 2 min of walking today and amb over 200ft which is much improved since IE. He cont to show dec leg strength and balance as demonstrated by sit to stands and DGI and would benefit from cont PT. He has made slow progress as he has mult medical complexities and is undergoing mult tests to determine the cause and appropriate treatment at this time. Physical Therapy Plan Frequency and Duration Frequency of Treatment 2x/Week Duration of Treatment 3 months Plan of Care Start Date 11/01/21 Plan of Care End Date 01/30/22 Therapeutic Interventions Therapeutic Interventions Aquatic Therapy,Balance Training,Gait Training,Home Exercise Program,Joint Mobilizations,Manual Therapy, Neuromuscular Re-education, Orthotic/Prosthetic Management ,Patient/Caregiver Education, Self-Care/Home Management,Soft Tissue Mobilization,Taping, Therapeutic Activities, Therapeutic Exercises Modalities Cold Pack/Ice Massage,Electric Stimulation,Hot Packs Next Visit Focus/Plan Next Note Type Treatment Note Next Visit Plan Continue with recumbant bike d /t dec tolerance to upright bike, work on gait, balance and strength
--- NOTE | 2021-12-29 12:42 | PT.OTN ---
Current Diagnoses Guillain-[place] syndrome (12/29/21) Muscle weakness (generalized) (12/29/21) Difficulty in walking, not elsewhere classified (12/29/21) Physical Therapy Treatment Note PT-OP-A Visit Information Start: 08/18/21 11:31 Freq: Status: Active Protocol: Document 12/29/21 11:57 MA (Rec: 12/29/21 12:42 MA [id number]) Out-Patient Physical Therapy Visit Information Visit Information Visit Type Treatment Note Visit Note 12/06 Visit Start Time 11:55 Visit Stop Time 12:35 Total Visit Minutes 40 Visit Number 28 Number of SHOT DROPPER Visits 4 PT-OP-B Current Condition Start: 08/18/21 11:31 Freq: Status: Active Protocol: Document 08/19/21 07:38 [facility] (Rec: 08/19/21 10:23 [facility] [id number]) Current Condition History of Current Condition Onset Date 1.5 years ago Current Complaints weakness History of Current Condition Pt was diagonosed w/ myelofibrosis which comes w/ low hematocrit and platelets and has slowly dec frequency to 4 weeks ago. He had [employer] shot February 08 and developed Guillian [place] Syndrome symptoms a few weeks later. He got his blood count done and was fine and was severe weakness. Severe weakness in legs and some in arms w/no reflexs and some facilitations whcih he doens't have it any more. He had infusions of immunoglobulin and it seemed to help a bit at first. He has an electric WC coming today that he paid for out of pocket that he plans to use when out of the house. He can recover from activity w/5 -10 min of rest. He has some ankle swelling that started aobut 6 months ago but labs have all been normal for possible CHF. Pt reports he gets SOB and weakness. He has postural hypotension. Pt reports some gradual minor memory loss. Pt has B hip replacement and a microdiscectomy L4-5. No falls . Pt sees Oncology every 3 weeks and gets a subcutaneous shot every 3 weeks which inc red blood cells. Prior to these diagnoses (1.5 years ago ), he was sailing, biking, tennis, hiking and walking. Pt reports he can cut about 3 roses then has to sit down d/t fatigue. His chores are very short. Indep w/ADLs. Can only walk 80ft before he has to rest. Prior Treatments and Tests No PT since all of this started Treatment Goals Patient/Caregiver Goals inc tolerance w/walking, inc endurance, be able to get up/ down from ground w/o outside support PT-OP-C Subjective Start: 08/18/21 11:31 Freq: Status: Active Protocol: Document 12/29/21 11:57 [facility] (Rec: 12/29/21 12:42 MA [id number]) OP-PT Subjective Patient Comments Patient Comments Pt just got back from [employer] last night. He feels like he was lurching to the L a couple days ago and thought maybe he had a mini stroke, but he has no symptoms now so maybe it was just from sitting in the car so long and leaning PT-OP-D Balance Start: 08/18/21 11:31 Freq: Status: Active Protocol: Document 08/19/21 07:38 [facility] (Rec: 08/19/21 10:23 [facility] [id number]) Balance Tests Dunn Balance Test Dunn Balance Test Score 46/56 PT-OP-E Functional Tests Start: 08/18/21 11:31 Freq: Status: Active Protocol: Document 12/13/21 12:10 SP (Rec: 12/13/21 13:03 SP [id number]) Functional Tests 2 Minute Walk Test Distance 206 ft Device Used SPC Comments completed 6MWT 30 Second Sit to Stand Test Score 6.5 reps in 30 sec Comments hands held front, 18 chair Dynamic Gait Index (DGI) Score 17/24 DGI Impairment Rating 20 to <40% Impaired (Score 15- 19) PT-OP-G Mobility & Gait Start: 08/18/21 11:31 Freq: Status: Active Protocol: Document 08/19/21 07:38 [facility] (Rec: 08/19/21 10:23 [facility] [id number]) OP Mobility Evaluation Bed Mobility Supine to and from Sit indep Transfers Sit to Stand able to sit to stand indep - chooses to use UEs but can w/o OP Gait Assessment Comments Gait Comments Amb with slow pace and dec push off PT-OP-M Strength Start: 08/18/21 11:31 Freq: Status: Active Protocol: Document 11/01/21 11:18 [facility] (Rec: 11/01/21 11:58 [facility] [id number]) Hip Strength Hip Manual Muscle Testing Right Flexion (L2) 4- Good- Extension (S1) 3 Fair Abduction 4- Good- External Rotation 4- Good- Internal Rotation 4+ Good+ Left Flexion (L2) 4- Good- Extension (S1) 3 Fair Abduction 4- Good- External Rotation 3+ Fair+ Internal Rotation 4+ Good+ Comments goes into flex B w/abd testing Knee Strength Knee Manual Muscle Testing Right Flexion (S2) 5 Normal Extension (L3) 5 Normal Left Flexion (S2) 4+ Good+ Extension (L3) 5 Normal Ankle/Foot Strength Ankle and Foot Manual Muscle Testing Right Dorsiflexion (L4) 5 Normal Plantarflexion (S1) 5 Normal Comments PF tested seated Left Dorsiflexion (L4) 4 Good Plantarflexion (S1) 4+ Good+ PT-OP-Q Treatments Start: 08/18/21 11:31 Freq: Status: Active Protocol: Document 12/29/21 11:57 MA (Rec: 12/29/21 12:42 MA [id number]) Cardio Equipment Recumbent Bicycle Duration (Minutes) 8 Resistance 5 Seat Position 10 Therapeutic Exercises Standing Exercises step up Side bilateral Equipment Used 6 step sit to stand Side bilateral Equipment Used 18 mesh chair w/out UE support Comments hands held front Other Exercises 2 min walk test Other Exercise Name 2 min- 282.7 ft Comments touched wall once for balance Neuro Re-Education Treatment Balance Activities carcioca Details rail prn Reps/Duration 2x10 ft Comments CGA Taps Details alt toe taps on 6 cone Reps/Duration 30x Comments single hand assist on rail PT-OP-T Assessment and Plan Start: 08/18/21 11:31 Freq: Status: Active Protocol: Document 12/29/21 11:57 MA (Rec: 12/29/21 12:42 MA [id number]) Physical Therapy Assessment Goals sit to stand Computerized Table Cutter Goal (LTG) Pt will be able to complete at least 10 sit to stands in 30 sec to show improved strength and funcitonal ability. 11/01-imprvoed to 7 12/13/21: 6.5 reps in 30 sec.( rounds to 7) LTG Duration 01/30/22 balance Retirement Goal (LTG) Pt will be able to score at least 20/24 on DGI to show dec risk for falls. 11/01-improved to 17 12/13/20: LTG Duration 01/30/22 strength Short Term Goal (STG) Pt will be indep w/HEP STG Duration achieved progresssing as able Computerized Table Cutter Goal (LTG) Pt will score at least 4/5 on all LE MMT to show improved strengtht o improve pt's ability to participate in home activities. 09/27-improving 11/01-improved LTG Duration 01/30/22 walking Short Term Goal (STG) Pt willb e able to complete 2 min walk test w/o requriing seated rest break at least 160ft to show improved activity tolerance. 09/27-pt having difficulty w/ SOB more over past 2 weeks. Has been having testing done to determine reason 10/25-able to do 180ft but could only go 1.5 min 11/01-215ft but still only able to go 1.5 min 12/13/20: completed 206 ft in 2 min using SPC. STG Duration achieved 12/13 Retirement Goal (LTG) Pt will be able to complete 6 min walk test with distance of at least 450ft. LTG Duration 01/30/22 Assessment Summary Assessment Pt was able to walk for 2 minutes without a rest break, completing 282 ft before sitting showing good improvement from previous sessions. He has difficulty with all balance activities unless allowed to keep one hand resting on bar. He continues to requires frequent rest breaks between sets of exercises but his SOB is improving vs previous sessions as demonstrated by pt's ability to continue to hold a conversation while exercising and while resting. Physical Therapy Plan Frequency and Duration Frequency of Treatment 2x/Week Duration of Treatment 3 months Plan of Care Start Date 11/01/21 Plan of Care End Date 01/30/22 Therapeutic Interventions Therapeutic Interventions Aquatic Therapy,Balance Training,Gait Training,Home Exercise Program,Joint Mobilizations,Manual Therapy, Neuromuscular Re-education, Orthotic/Prosthetic Management ,Patient/Caregiver Education, Self-Care/Home Management,Soft Tissue Mobilization,Taping, Therapeutic Activities, Therapeutic Exercises Modalities Cold Pack/Ice Massage,Electric Stimulation,Hot Packs Next Visit Focus/Plan Next Note Type Treatment Note Next Visit Plan Continue with recumbant bike d /t dec tolerance to upright bike, work on gait, balance and strength
--- NOTE | 2022-01-03 12:09 | PT.OTN ---
Current Diagnoses Guillain-[place] syndrome (01/03/22) Muscle weakness (generalized) (01/03/22) Difficulty in walking, not elsewhere classified (01/03/22) Physical Therapy Treatment Note PT-OP-A Visit Information Start: 08/18/21 11:31 Freq: Status: Active Protocol: Document 01/03/22 11:22 [facility] (Rec: 01/03/22 11:53 [facility] [id number]) Out-Patient Physical Therapy Visit Information Visit Information Visit Type Treatment Note Visit Note 01/06 Visit Start Time 11:19 Visit Stop Time 12:00 Total Visit Minutes 41 Visit Number 29 Number of ELEVATOR SUPERVISOR Visits 0 PT-OP-B Current Condition Start: 08/18/21 11:31 Freq: Status: Active Protocol: Document 08/19/21 07:38 [facility] (Rec: 08/19/21 10:23 [facility] [id number]) Current Condition History of Current Condition Onset Date 1.5 years ago Current Complaints weakness History of Current Condition Pt was diagonosed w/ myelofibrosis which comes w/ low hematocrit and platelets and has slowly dec frequency to 4 weeks ago. He had [employer] shot February 08 and developed Guillian [place] Syndrome symptoms a few weeks later. He got his blood count done and was fine and was severe weakness. Severe weakness in legs and some in arms w/no reflexs and some facilitations whcih he doens't have it any more. He had infusions of immunoglobulin and it seemed to help a bit at first. He has an electric WC coming today that he paid for out of pocket that he plans to use when out of the house. He can recover from activity w/5 -10 min of rest. He has some ankle swelling that started aobut 6 months ago but labs have all been normal for possible CHF. Pt reports he gets SOB and weakness. He has postural hypotension. Pt reports some gradual minor memory loss. Pt has B hip replacement and a microdiscectomy L4-5. No falls . Pt sees Oncology every 3 weeks and gets a subcutaneous shot every 3 weeks which inc red blood cells. Prior to these diagnoses (1.5 years ago ), he was sailing, biking, tennis, hiking and walking. Pt reports he can cut about 3 roses then has to sit down d/t fatigue. His chores are very short. Indep w/ADLs. Can only walk 80ft before he has to rest. Prior Treatments and Tests No PT since all of this started Treatment Goals Patient/Caregiver Goals inc tolerance w/walking, inc endurance, be able to get up/ down from ground w/o outside support PT-OP-C Subjective Start: 08/18/21 11:31 Freq: Status: Active Protocol: Document 01/03/22 11:22 [facility] (Rec: 01/03/22 11:53 [facility] [id number]) OP-PT Subjective Patient Comments Patient Comments Pt reports he is waiting for results of pulmonary function test. He is going to schedule w/GI for colonoscopy. 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 Pt said he doesn't think the MD found anything w/ EMG. he has been doing sit to stands but not other exercises . Notes he feels tired today so is going to get more blood testing. PT-OP-D Balance Start: 08/18/21 11:31 Freq: Status: Active Protocol: Document 08/19/21 07:38 [facility] (Rec: 08/19/21 10:23 [facility] [id number]) Balance Tests Dunn Balance Test Dunn Balance Test Score 46/56 PT-OP-E Functional Tests Start: 08/18/21 11:31 Freq: Status: Active Protocol: Document 12/13/21 12:10 SP (Rec: 12/13/21 13:03 SP [id number]) Functional Tests 2 Minute Walk Test Distance 206 ft Device Used SPC Comments completed 6MWT 30 Second Sit to Stand Test Score 6.5 reps in 30 sec Comments hands held front, 18 chair Dynamic Gait Index (DGI) Score 17/24 DGI Impairment Rating 20 to <40% Impaired (Score 15- 19) PT-OP-G Mobility & Gait Start: 08/18/21 11:31 Freq: Status: Active Protocol: Document 08/19/21 07:38 [facility] (Rec: 08/19/21 10:23 [facility] [id number]) OP Mobility Evaluation Bed Mobility Supine to and from Sit indep Transfers Sit to Stand able to sit to stand indep - chooses to use UEs but can w/o OP Gait Assessment Comments Gait Comments Amb with slow pace and dec push off PT-OP-M Strength Start: 08/18/21 11:31 Freq: Status: Active Protocol: Document 11/01/21 11:18 [facility] (Rec: 11/01/21 11:58 [facility] [id number]) Hip Strength Hip Manual Muscle Testing Right Flexion (L2) 4- Good- Extension (S1) 3 Fair Abduction 4- Good- External Rotation 4- Good- Internal Rotation 4+ Good+ Left Flexion (L2) 4- Good- Extension (S1) 3 Fair Abduction 4- Good- External Rotation 3+ Fair+ Internal Rotation 4+ Good+ Comments goes into flex B w/abd testing Knee Strength Knee Manual Muscle Testing Right Flexion (S2) 5 Normal Extension (L3) 5 Normal Left Flexion (S2) 4+ Good+ Extension (L3) 5 Normal Ankle/Foot Strength Ankle and Foot Manual Muscle Testing Right Dorsiflexion (L4) 5 Normal Plantarflexion (S1) 5 Normal Comments PF tested seated Left Dorsiflexion (L4) 4 Good Plantarflexion (S1) 4+ Good+ PT-OP-Q Treatments Start: 08/18/21 11:31 Freq: Status: Active Protocol: Document 01/03/22 11:22 [facility] (Rec: 01/03/22 11:53 [facility] [id number]) Therapeutic Exercises Supine Exercises SLR Side bilateral Reps/Minutes 15 bridge Side bilateral Reps/Minutes 5 sec x12 Sidelying Exercises reverse clam Side bilateral Equipment Used lvl 1 Reps/Minutes 15 abd Sidelying Exercise Name hip Side bilateral Reps/Minutes 15 clamshell Side bilateral Equipment Used lvl 1 Reps/Minutes 15 Sitting Exercises DF Sitting Exercise Name dorsiflexion/PF Side bilateral Reps/Minutes 40 ea Knee flex Side bilateral Equipment Used Lvl 1 Reps/Minutes 15 ea knee ext Side bilateral Equipment Used L1 Reps/Minutes 20 ea march Side bilateral Equipment Used L3 Reps/Minutes 30 hip ER Side bilateral Equipment Used L3 Reps/Minutes 30 Neuro Re-Education Treatment Balance Activities Taps Details alt toe taps on 6 cone Reps/Duration 30x Comments single hand assist on rail hurdles Comments 1. 6 hurdles step through fwd gait rail prn x8 2. side step over 6 hurdles- 2x PT-OP-T Assessment and Plan Start: 08/18/21 11:31 Freq: Status: Active Protocol: Document 01/03/22 11:22 [facility] (Rec: 01/03/22 11:56 [facility] [id number]) Physical Therapy Assessment Goals sit to stand Care Home Goal (LTG) Pt will be able to complete at least 10 sit to stands in 30 sec to show improved strength and funcitonal ability. 11/01-imprvoed to 7 12/13/21: 6.5 reps in 30 sec.( rounds to 7) LTG Duration 01/30/22 balance Care Home Goal (LTG) Pt will be able to score at least 20/24 on DGI to show dec risk for falls. 11/01-improved to 17 12/13/20: LTG Duration 01/30/22 strength Short Term Goal (STG) Pt will be indep w/HEP STG Duration achieved progresssing as able [employer] Director Goal (LTG) Pt will score at least 4/5 on all LE MMT to show improved strengtht o improve pt's ability to participate in home activities. 09/27-improving 11/01-improved LTG Duration 01/30/22 walking Short Term Goal (STG) Pt willb e able to complete 2 min walk test w/o requriing seated rest break at least 160ft to show improved activity tolerance. 09/27-pt having difficulty w/ SOB more over past 2 weeks. Has been having testing done to determine reason 10/25-able to do 180ft but could only go 1.5 min 11/01-215ft but still only able to go 1.5 min 12/13/20: completed 206 ft in 2 min using SPC. STG Duration achieved 12/13 [employer] Director Goal (LTG) Pt will be able to complete 6 min walk test with distance of at least 450ft. LTG Duration 01/30/22 Assessment Summary Assessment Pt was given new handouts w/ all the same exercises for seated and laying down from before to encourage to do at home. Encouraged to get some done each day. Pt is doing better in standing and showing more control when in SL posiitoning. He was able to do laying and seated exercises w /min cueing except clamshells and S/L abd some more cueing was required. Physical Therapy Plan Frequency and Duration Frequency of Treatment 2x/Week Duration of Treatment 3 months Plan of Care Start Date 11/01/21 Plan of Care End Date 01/30/22 Next Visit Focus/Plan Next Note Type Treatment Note Next Visit Plan rec bike, work on gait & balance and LE strength
--- NOTE | 2022-01-05 12:40 | PT.OTN ---
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) Muscle weakness (generalized) (01/05/22) Difficulty in walking, not elsewhere classified (01/05/22) Physical Therapy Treatment Note PT-OP-A Visit Information Start: 08/18/21 11:31 Freq: Status: Active Protocol: Document 01/05/22 11:37 MA (Rec: 01/05/22 12:40 MA [id number]) Out-Patient Physical Therapy Visit Information Visit Information Visit Type Treatment Note Visit Note 02/03 Visit Start Time 11:54 Visit Stop Time 12:35 Total Visit Minutes 41 Visit Number 30 Number of [employer] Visits 1 PT-OP-B Current Condition Start: 08/18/21 11:31 Freq: Status: Active Protocol: Document 08/19/21 07:38 [facility] (Rec: 08/19/21 10:23 [facility] [id number]) Current Condition History of Current Condition Onset Date 1.5 years ago Current Complaints weakness History of Current Condition Pt was diagonosed w/ myelofibrosis which comes w/ low hematocrit and platelets and has slowly dec frequency to 4 weeks ago. He had [employer] shot February 08 and developed Guillian Krebs Syndrome symptoms a few weeks later. He got his blood count done and was fine and was severe weakness. Severe weakness in legs and some in arms w/no reflexs and some facilitations whcih he doens't have it any more. He had infusions of immunoglobulin and it seemed to help a bit at first. He has an electric WC coming today that he paid for out of pocket that he plans to use when out of the house. He can recover from activity w/5 -10 min of rest. He has some ankle swelling that started aobut 6 months ago but labs have all been normal for possible CHF. Pt reports he gets SOB and weakness. He has postural hypotension. Pt reports some gradual minor memory loss. Pt has B hip replacement and a microdiscectomy L4-5. No falls . Pt sees Oncology every 3 weeks and gets a subcutaneous shot every 3 weeks which inc red blood cells. Prior to these diagnoses (1.5 years ago ), he was sailing, biking, tennis, hiking and walking. Pt reports he can cut about 3 roses then has to sit down d/t fatigue. His chores are very short. Indep w/ADLs. Can only walk 80ft before he has to rest. Prior Treatments and Tests No PT since all of this started Treatment Goals Patient/Caregiver Goals inc tolerance w/walking, inc endurance, be able to get up/ down from ground w/o outside support PT-OP-C Subjective Start: 08/18/21 11:31 Freq: Status: Active Protocol: Document 01/05/22 11:37 MA (Rec: 01/05/22 12:40 MA [id number]) OP-PT Subjective Patient Comments Patient Comments Pt feels more tired recently and will be going back to get injections again today. Pt denies trying any of his exercises due to going to the boat show yesterday. PT-OP-D Balance Start: 08/18/21 11:31 Freq: Status: Active Protocol: Document 08/19/21 07:38 [facility] (Rec: 08/19/21 10:23 [facility] [id number]) Balance Tests Dunn Balance Test Dunn Balance Test Score 46/56 PT-OP-E Functional Tests Start: 08/18/21 11:31 Freq: Status: Active Protocol: Document 12/13/21 12:10 SP (Rec: 12/13/21 13:03 SP [id number]) Functional Tests 2 Minute Walk Test Distance 206 ft Device Used SPC Comments completed 6MWT 30 Second Sit to Stand Test Score 6.5 reps in 30 sec Comments hands held front, 18 chair Dynamic Gait Index (DGI) Score 17/24 DGI Impairment Rating 20 to <40% Impaired (Score 15- 19) PT-OP-G Mobility & Gait Start: 08/18/21 11:31 Freq: Status: Active Protocol: Document 08/19/21 07:38 [facility] (Rec: 08/19/21 10:23 [facility] [id number]) OP Mobility Evaluation Bed Mobility Supine to and from Sit indep Transfers Sit to Stand able to sit to stand indep - chooses to use UEs but can w/o OP Gait Assessment Comments Gait Comments Amb with slow pace and dec push off PT-OP-M Strength Start: 08/18/21 11:31 Freq: Status: Active Protocol: Document 11/01/21 11:18 LR (Rec: 11/01/21 11:58 [facility] [id number]) Hip Strength Hip Manual Muscle Testing Right Flexion (L2) 4- Good- Extension (S1) 3 Fair Abduction 4- Good- External Rotation 4- Good- Internal Rotation 4+ Good+ Left Flexion (L2) 4- Good- Extension (S1) 3 Fair Abduction 4- Good- External Rotation 3+ Fair+ Internal Rotation 4+ Good+ Comments goes into flex B w/abd testing Knee Strength Knee Manual Muscle Testing Right Flexion (S2) 5 Normal Extension (L3) 5 Normal Left Flexion (S2) 4+ Good+ Extension (L3) 5 Normal Ankle/Foot Strength Ankle and Foot Manual Muscle Testing Right Dorsiflexion (L4) 5 Normal Plantarflexion (S1) 5 Normal Comments PF tested seated Left Dorsiflexion (L4) 4 Good Plantarflexion (S1) 4+ Good+ PT-OP-Q Treatments Start: 08/18/21 11:31 Freq: Status: Active Protocol: Document 01/05/22 11:37 MA (Rec: 01/05/22 12:40 MA [id number]) Cardio Equipment Recumbent Bicycle Duration (Minutes) 8 Resistance 5 Seat Position 10 Therapeutic Exercises Sitting Exercises DF Sitting Exercise Name dorsiflexion/PF Side bilateral Reps/Minutes 2x20 ea Knee flex Side bilateral Equipment Used Lvl 2 Reps/Minutes 15 ea knee ext Side bilateral Equipment Used L2 Reps/Minutes 20 ea hip ER Side bilateral Equipment Used L3 Reps/Minutes 2x15 Comments pt fatigues at 15 and requires rest break Standing Exercises heel raises Standing Exercise Name heel raises and toe raises Side bilateral Reps/Minutes x20 ea Comments alternating feet for toe raises step up Side bilateral Equipment Used 6 stair Reps/Minutes x20 ea Comments alex rails PT-OP-T Assessment and Plan Start: 08/18/21 11:31 Freq: Status: Active Protocol: Document 01/05/22 11:37 MA (Rec: 01/05/22 12:40 MA [id number]) Physical Therapy Assessment Goals sit to stand Usp Goal (LTG) Pt will be able to complete at least 10 sit to stands in 30 sec to show improved strength and funcitonal ability. 11/01-imprvoed to 7 12/13/21: 6.5 reps in 30 sec.( rounds to 7) LTG Duration 01/30/22 balance Usp Goal (LTG) Pt will be able to score at least 20/24 on DGI to show dec risk for falls. 11/01-improved to 17 12/13/20: LTG Duration 01/30/22 strength Short Term Goal (STG) Pt will be indep w/HEP STG Duration achieved progresssing as able Usp Goal (LTG) Pt will score at least 4/5 on all LE MMT to show improved strengtht o improve pt's ability to participate in home activities. 09/27-improving 11/01-improved LTG Duration 01/30/22 walking Short Term Goal (STG) Pt willb e able to complete 2 min walk test w/o requriing seated rest break at least 160ft to show improved activity tolerance. 09/27-pt having difficulty w/ SOB more over past 2 weeks. Has been having testing done to determine reason 10/25-able to do 180ft but could only go 1.5 min 11/01-215ft but still only able to go 1.5 min 12/13/20: completed 206 ft in 2 min using SPC. STG Duration achieved 12/13 Usp Goal (LTG) Pt will be able to complete 6 min walk test with distance of at least 450ft. LTG Duration 01/30/22 Assessment Summary Assessment Pt is challenged by heel/toe raises in standing and needs to alternate LEs for toe raises to avoid flexing fwd from waistline to compensate. Discussed buying an under desk floor bike for home as pt does not want to buy a recumbant bike due to having four outdoor bikes. Encouraged pt to work on exercises from previous session at home daily for strengthening. Pt states he always feels better after therapy. Pt has not lost any more weight recently and feels like he is getting some muscle strength back but continues to fatigue and requires seated rest breaks after completing each set of exercises. Physical Therapy Plan Frequency and Duration Frequency of Treatment 2x/Week Duration of Treatment 3 months Plan of Care Start Date 11/01/21 Plan of Care End Date 01/30/22 Therapeutic Interventions Therapeutic Interventions Aquatic Therapy,Balance Training,Gait Training,Home Exercise Program,Joint Mobilizations,Manual Therapy, Neuromuscular Re-education, Orthotic/Prosthetic Management ,Patient/Caregiver Education, Self-Care/Home Management,Soft Tissue Mobilization,Taping, Therapeutic Activities, Therapeutic Exercises Modalities Cold Pack/Ice Massage,Electric Stimulation,Hot Packs Next Visit Focus/Plan Next Note Type Treatment Note Next Visit Plan rec bike, work on gait & balance and LE strength. f/u on whether pt got under desk bike for home.
--- NOTE | 2022-01-10 12:01 | PT.OTN ---
Current Diagnoses Guillain-[place] syndrome (01/10/22) Muscle weakness (generalized) (01/10/22) Difficulty in walking, not elsewhere classified (01/10/22) Physical Therapy Treatment Note PT-OP-A Visit Information Start: 08/18/21 11:31 Freq: Status: Active Protocol: Document 01/10/22 11:15 MA (Rec: 01/10/22 12:01 MA [id number]) Out-Patient Physical Therapy Visit Information Visit Information Visit Type Treatment Note Visit Note 03/06 Visit Start Time 11:14 Visit Stop Time 11:55 Total Visit Minutes 41 Visit Number 31 Number of [employer] Visits 2 PT-OP-B Current Condition Start: 08/18/21 11:31 Freq: Status: Active Protocol: Document 08/19/21 07:38 [facility] (Rec: 08/19/21 10:23 [facility] [id number]) Current Condition History of Current Condition Onset Date 1.5 years ago Current Complaints weakness History of Current Condition Pt was diagonosed w/ myelofibrosis which comes w/ low hematocrit and platelets and has slowly dec frequency to 4 weeks ago. He had [employer] shot February 08 and developed Guillian [place] Syndrome symptoms a few weeks later. He got his blood count done and was fine and was severe weakness. Severe weakness in legs and some in arms w/no reflexs and some facilitations whcih he doens't have it any more. He had infusions of immunoglobulin and it seemed to help a bit at first. He has an electric WC coming today that he paid for out of pocket that he plans to use when out of the house. He can recover from activity w/5 -10 min of rest. He has some ankle swelling that started aobut 6 months ago but labs have all been normal for possible CHF. Pt reports he gets SOB and weakness. He has postural hypotension. Pt reports some gradual minor memory loss. Pt has B hip replacement and a microdiscectomy L4-5. No falls . Pt sees Oncology every 3 weeks and gets a subcutaneous shot every 3 weeks which inc red blood cells. Prior to these diagnoses (1.5 years ago ), he was sailing, biking, tennis, hiking and walking. Pt reports he can cut about 3 roses then has to sit down d/t fatigue. His chores are very short. Indep w/ADLs. Can only walk 80ft before he has to rest. Prior Treatments and Tests No PT since all of this started Treatment Goals Patient/Caregiver Goals inc tolerance w/walking, inc endurance, be able to get up/ down from ground w/o outside support PT-OP-C Subjective Start: 08/18/21 11:31 Freq: Status: Active Protocol: Document 01/10/22 11:15 MA (Rec: 01/10/22 12:01 MA [id number]) OP-PT Subjective Patient Comments Patient Comments Pt felt better this weekend but is more tired today. He states that he always feels more motivated after therapy and feels he does well while he is in the clinic. PT-OP-D Balance Start: 08/18/21 11:31 Freq: Status: Active Protocol: Document 08/19/21 07:38 [facility] (Rec: 08/19/21 10:23 [facility] [id number]) Balance Tests Dunn Balance Test Dunn Balance Test Score 46/56 PT-OP-E Functional Tests Start: 08/18/21 11:31 Freq: Status: Active Protocol: Document 12/13/21 12:10 SP (Rec: 12/13/21 13:03 SP [id number]) Functional Tests 2 Minute Walk Test Distance 206 ft Device Used SPC Comments completed 6MWT 30 Second Sit to Stand Test Score 6.5 reps in 30 sec Comments hands held front, 18 chair Dynamic Gait Index (DGI) Score 17/24 DGI Impairment Rating 20 to <40% Impaired (Score 15- 19) PT-OP-G Mobility & Gait Start: 08/18/21 11:31 Freq: Status: Active Protocol: Document 08/19/21 07:38 [facility] (Rec: 08/19/21 10:23 [facility] [id number]) OP Mobility Evaluation Bed Mobility Supine to and from Sit indep Transfers Sit to Stand able to sit to stand indep - chooses to use UEs but can w/o OP Gait Assessment Comments Gait Comments Amb with slow pace and dec push off PT-OP-M Strength Start: 08/18/21 11:31 Freq: Status: Active Protocol: Document 11/01/21 11:18 LR (Rec: 11/01/21 11:58 [facility] [id number]) Hip Strength Hip Manual Muscle Testing Right Flexion (L2) 4- Good- Extension (S1) 3 Fair Abduction 4- Good- External Rotation 4- Good- Internal Rotation 4+ Good+ Left Flexion (L2) 4- Good- Extension (S1) 3 Fair Abduction 4- Good- External Rotation 3+ Fair+ Internal Rotation 4+ Good+ Comments goes into flex B w/abd testing Knee Strength Knee Manual Muscle Testing Right Flexion (S2) 5 Normal Extension (L3) 5 Normal Left Flexion (S2) 4+ Good+ Extension (L3) 5 Normal Ankle/Foot Strength Ankle and Foot Manual Muscle Testing Right Dorsiflexion (L4) 5 Normal Plantarflexion (S1) 5 Normal Comments PF tested seated Left Dorsiflexion (L4) 4 Good Plantarflexion (S1) 4+ Good+ PT-OP-Q Treatments Start: 08/18/21 11:31 Freq: Status: Active Protocol: Document 01/10/22 11:15 MA (Rec: 01/10/22 12:01 MA [id number]) Cardio Equipment Recumbent Bicycle Duration (Minutes) 10 Resistance 5 Seat Position 10 Therapeutic Exercises Sitting Exercises DF Sitting Exercise Name dorsiflexion/PF Side bilateral Reps/Minutes 2x20 ea hip ER Side bilateral Equipment Used L3 Reps/Minutes 2x20 Standing Exercises heel raises Standing Exercise Name heel raises and toe raises Side bilateral Reps/Minutes x20 ea Comments alternating feet for toe raises hip ext Standing Exercise Name hip ext Side bilateral Equipment Used lvl 2 TB Reps/Minutes 2x10 sit to stand Side bilateral Equipment Used 18 mesh chair w/out UE support Reps/Minutes 8x Comments hands held front Neuro Re-Education Treatment Balance Activities SLS Comments 2x SLS for 10 sec with bouts of Min A speed change Details fast/slow Reps/Duration 2x40ft Comments fast, slow, and stopping on command head turns Reps/Duration 40 ft x2 laps, rest between laps Comments horizontal & vertical head turns Self-Care/Home Management Treatment Education Other Education Discussed and looked at reviews for best under desk bikes for pt to get some cardio at home while pt was on recumbant exercise bike this session. PT-OP-T Assessment and Plan Start: 08/18/21 11:31 Freq: Status: Active Protocol: Document 01/10/22 11:15 MA (Rec: 01/10/22 12:01 MA [id number]) Physical Therapy Assessment Goals sit to stand Prison Goal (LTG) Pt will be able to complete at least 10 sit to stands in 30 sec to show improved strength and funcitonal ability. 11/01-imprvoed to 7 12/13/21: 6.5 reps in 30 sec.( rounds to 7) LTG Duration 01/30/22 balance Private Client Advisor Goal (LTG) Pt will be able to score at least 20/24 on DGI to show dec risk for falls. 11/01-improved to 17 12/13/20: LTG Duration 01/30/22 strength Short Term Goal (STG) Pt will be indep w/HEP STG Duration achieved progresssing as able Prison Goal (LTG) Pt will score at least 4/5 on all LE MMT to show improved strengtht o improve pt's ability to participate in home activities. 09/27-improving 11/01-improved LTG Duration 01/30/22 walking Short Term Goal (STG) Pt willb e able to complete 2 min walk test w/o requriing seated rest break at least 160ft to show improved activity tolerance. 09/27-pt having difficulty w/ SOB more over past 2 weeks. Has been having testing done to determine reason 10/25-able to do 180ft but could only go 1.5 min 11/01-215ft but still only able to go 1.5 min 12/13/20: completed 206 ft in 2 min using SPC. STG Duration achieved 12/13 Prison Goal (LTG) Pt will be able to complete 6 min walk test with distance of at least 450ft. LTG Duration 01/30/22 Assessment Summary Assessment Pt continues to find toe raises challenging when standing. He does well with balance activities and is able to stop on command without LOB when changing speeds while walking. Goldy can hold SLS for 10 sec on each LE this session without UE support showing improvement from previous sessions where pt was unable to hold and had to switch to a staggered stance position. Physical Therapy Plan Frequency and Duration Frequency of Treatment 2x/Week Duration of Treatment 3 months Plan of Care Start Date 11/01/21 Plan of Care End Date 01/30/22 Therapeutic Interventions Therapeutic Interventions Aquatic Therapy,Balance Training,Gait Training,Home Exercise Program,Joint Mobilizations,Manual Therapy, Neuromuscular Re-education, Orthotic/Prosthetic Management ,Patient/Caregiver Education, Self-Care/Home Management,Soft Tissue Mobilization,Taping, Therapeutic Activities, Therapeutic Exercises Modalities Cold Pack/Ice Massage,Electric Stimulation,Hot Packs Next Visit Focus/Plan Next Note Type Treatment Note Next Visit Plan rec bike, work on gait & balance (SL balance) and LE strength. f/u on whether pt got under desk bike for home.
--- NOTE | 2022-01-17 12:45 | PT.OTN ---
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 He had [employer] shot February 08 and developed Guillian [place] Syndrome symptoms a few weeks later. He got his blood count done and was fine and was severe weakness. Severe weakness in legs and some in arms w/no reflexs and some facilitations whcih he doens't have it any more. He had infusions of immunoglobulin and it seemed to help a bit at first. He has an electric WC coming today that he paid for out of pocket that he plans to use when out of the house. He can recover from activity w/5 -10 min of rest. He has some ankle swelling that started aobut 6 months ago but labs have all been normal for possible CHF. Pt reports he gets SOB and weakness. He has postural hypotension. Pt reports some gradual minor memory loss. Pt has B hip replacement and a microdiscectomy L4-5. No falls . Pt sees Oncology every 3 weeks and gets a subcutaneous shot every 3 weeks which inc red blood cells. Prior to these diagnoses (1.5 years ago ), he was sailing, biking, tennis, hiking and walking. Pt reports he can cut about 3 roses then has to sit down d/t fatigue. His chores are very short. Indep w/ADLs. Can only walk 80ft before he has to rest. Prior Treatments and Tests No PT since all of this started Treatment Goals Patient/Caregiver Goals inc tolerance w/walking, inc endurance, be able to get up/ down from ground w/o outside support PT-OP-C Subjective Start: 08/18/21 11:31 Freq: Status: Active Protocol: Document 01/17/22 12:02 MA (Rec: 01/17/22 12:45 MA [id number]) OP-PT Subjective Patient Comments Patient Comments Pt states he is feeling discouraged as he thinks he is getting worse with his endurance and breathing. He has not gotten a bike for under his desk because he still wants to try his electric bike outside first. PT-OP-D Balance Start: 08/18/21 11:31 Freq: Status: Active Protocol: Document 08/19/21 07:38 [facility] (Rec: 08/19/21 10:23 [facility] [id number]) Balance Tests Dunn Balance Test Dunn Balance Test Score 46/56 PT-OP-E Functional Tests Start: 08/18/21 11:31 Freq: Status: Active Protocol: Document 12/13/21 12:10 SP (Rec: 12/13/21 13:03 SP [id number]) Functional Tests 2 Minute Walk Test Distance 206 ft Device Used SPC Comments completed 6MWT 30 Second Sit to Stand Test Score 6.5 reps in 30 sec Comments hands held front, 18 chair Dynamic Gait Index (DGI) Score 17/24 DGI Impairment Rating 20 to <40% Impaired (Score 15- 19) PT-OP-G Mobility & Gait Start: 08/18/21 11:31 Freq: Status: Active Protocol: Document 08/19/21 07:38 [facility] (Rec: 08/19/21 10:23 [facility] [id number]) OP Mobility Evaluation Bed Mobility Supine to and from Sit indep Transfers Sit to Stand able to sit to stand indep - chooses to use UEs but can w/o OP Gait Assessment Comments Gait Comments Amb with slow pace and dec push off PT-OP-M Strength Start: 08/18/21 11:31 Freq: Status: Active Protocol: Document 11/01/21 11:18 [facility] (Rec: 11/01/21 11:58 [facility] [id number]) Hip Strength Hip Manual Muscle Testing Right Flexion (L2) 4- Good- Extension (S1) 3 Fair Abduction 4- Good- External Rotation 4- Good- Internal Rotation 4+ Good+ Left Flexion (L2) 4- Good- Extension (S1) 3 Fair Abduction 4- Good- External Rotation 3+ Fair+ Internal Rotation 4+ Good+ Comments goes into flex B w/abd testing Knee Strength Knee Manual Muscle Testing Right Flexion (S2) 5 Normal Extension (L3) 5 Normal Left Flexion (S2) 4+ Good+ Extension (L3) 5 Normal Ankle/Foot Strength Ankle and Foot Manual Muscle Testing Right Dorsiflexion (L4) 5 Normal Plantarflexion (S1) 5 Normal Comments PF tested seated Left Dorsiflexion (L4) 4 Good Plantarflexion (S1) 4+ Good+ PT-OP-Q Treatments Start: 08/18/21 11:31 Freq: Status: Active Protocol: Document 01/17/22 12:02 MA (Rec: 01/17/22 12:45 MA [id number]) Cardio Equipment Recumbent Bicycle Duration (Minutes) 5 Resistance 5 Seat Position 10 Bicycle (Upright) Duration (Minutes) 3 Resistance 5 Seat Position 8 Gym Equipment Therapeutic Ball seated Ball Size/Color 75 cm Body Position seated Comments 1. marches 2. LAQ 3. bouncing for balance 4. balloon toss outside [place] Therapeutic Exercises Standing Exercises sit to stand Side bilateral Equipment Used 18 mesh chair w/out UE support Reps/Minutes 10x Comments hands held front Neuro Re-Education Treatment Balance Activities SLS Comments 2x SLS for 10 sec with bouts of Min A rocker board Equipment rocker board Comments A/P rocking with and without UE support staggered stance Details tandem stance Surface solid Equipment rail prn Reps/Duration 1' ea PT-OP-T Assessment and Plan Start: 08/18/21 11:31 Freq: Status: Active Protocol: Document 01/17/22 12:02 MA (Rec: 01/17/22 12:45 MA [id number]) Physical Therapy Assessment Goals sit to stand Packing Room Worker Goal (LTG) Pt will be able to complete at least 10 sit to stands in 30 sec to show improved strength and funcitonal ability. 11/01-imprvoed to 7 12/13/21: 6.5 reps in 30 sec.( rounds to 7) LTG Duration 01/30/22 balance Shelter Goal (LTG) Pt will be able to score at least 20/24 on DGI to show dec risk for falls. 11/01-improved to 17 12/13/20: LTG Duration 01/30/22 strength Short Term Goal (STG) Pt will be indep w/HEP STG Duration achieved progresssing as able Shelter Goal (LTG) Pt will score at least 4/5 on all LE MMT to show improved strengtht o improve pt's ability to participate in home activities. 09/27-improving 11/01-improved LTG Duration 01/30/22 walking Short Term Goal (STG) Pt willb e able to complete 2 min walk test w/o requriing seated rest break at least 160ft to show improved activity tolerance. 09/27-pt having difficulty w/ SOB more over past 2 weeks. Has been having testing done to determine reason 10/25-able to do 180ft but could only go 1.5 min 11/01-215ft but still only able to go 1.5 min 12/13/20: completed 206 ft in 2 min using SPC. STG Duration achieved 12/13 Packing Room Worker Goal (LTG) Pt will be able to complete 6 min walk test with distance of at least 450ft. LTG Duration 01/30/22 Assessment Summary Assessment Pt wants to ride his electric 2-wheel bike again. Discussed concerns over pt's balance hindering his ability to ride safely. Focused on seated and standing balance this session with pt challenged by tandem stance. Attempted upright bike with pt having increased difficulty breathing. Pt was able to complete 10 sit<> stands at end of session vs 8 last session. Encouraged pt tp continue his exercises at home and discussed how his balance has been improving as he has moved from staggered stance into tandem stance recently and can hold position longer each session. Physical Therapy Plan Frequency and Duration Frequency of Treatment 2x/Week Duration of Treatment 3 months Plan of Care Start Date 11/01/21 Plan of Care End Date 01/30/22 Therapeutic Interventions Therapeutic Interventions Aquatic Therapy,Balance Training,Gait Training,Home Exercise Program,Joint Mobilizations,Manual Therapy, Neuromuscular Re-education, Orthotic/Prosthetic Management ,Patient/Caregiver Education, Self-Care/Home Management,Soft Tissue Mobilization,Taping, Therapeutic Activities, Therapeutic Exercises Modalities Cold Pack/Ice Massage,Electric Stimulation,Hot Packs Next Visit Focus/Plan Next Note Type Treatment Note Next Visit Plan Attempt upright bike again. Continue with tandem balance and end with sit<>stand to compare with previous session. rec bike, work on gait & balance (SL balance) and LE strength. f/u on whether pt got under desk bike for home.
--- NOTE | 2022-01-19 12:03 | PT.OTN ---
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 He had [employer] shot February 08 and developed Guillian [place] Syndrome symptoms a few weeks later. He got his blood count done and was fine and was severe weakness. Severe weakness in legs and some in arms w/no reflexs and some facilitations whcih he doens't have it any more. He had infusions of immunoglobulin and it seemed to help a bit at first. He has an electric WC coming today that he paid for out of pocket that he plans to use when out of the house. He can recover from activity w/5 -10 min of rest. He has some ankle swelling that started aobut 6 months ago but labs have all been normal for possible CHF. Pt reports he gets SOB and weakness. He has postural hypotension. Pt reports some gradual minor memory loss. Pt has B hip replacement and a microdiscectomy L4-5. No falls . Pt sees Oncology every 3 weeks and gets a subcutaneous shot every 3 weeks which inc red blood cells. Prior to these diagnoses (1.5 years ago ), he was sailing, biking, tennis, hiking and walking. Pt reports he can cut about 3 roses then has to sit down d/t fatigue. His chores are very short. Indep w/ADLs. Can only walk 80ft before he has to rest. Prior Treatments and Tests No PT since all of this started Treatment Goals Patient/Caregiver Goals inc tolerance w/walking, inc endurance, be able to get up/ down from ground w/o outside support PT-OP-C Subjective Start: 08/18/21 11:31 Freq: Status: Active Protocol: Document 01/19/22 11:21 [facility] (Rec: 01/19/22 12:03 [facility] [id number]) OP-PT Subjective Patient Comments Patient Comments Pt reports he can tell his balance is better than when he strated. NOtes he is thining of using his bike. Patient Reported Progress Improving PT-OP-D Balance Start: 08/18/21 11:31 Freq: Status: Active Protocol: Document 08/19/21 07:38 [facility] (Rec: 08/19/21 10:23 [facility] [id number]) Balance Tests Dunn Balance Test Dunn Balance Test Score 46/56 PT-OP-E Functional Tests Start: 08/18/21 11:31 Freq: Status: Active Protocol: Document 12/13/21 12:10 SP (Rec: 12/13/21 13:03 SP [id number]) Functional Tests 2 Minute Walk Test Distance 206 ft Device Used SPC Comments completed 6MWT 30 Second Sit to Stand Test Score 6.5 reps in 30 sec Comments hands held front, 18 chair Dynamic Gait Index (DGI) Score 17/24 DGI Impairment Rating 20 to <40% Impaired (Score 15- 19) PT-OP-G Mobility & Gait Start: 08/18/21 11:31 Freq: Status: Active Protocol: Document 08/19/21 07:38 [facility] (Rec: 08/19/21 10:23 [facility] [id number]) OP Mobility Evaluation Bed Mobility Supine to and from Sit indep Transfers Sit to Stand able to sit to stand indep - chooses to use UEs but can w/o OP Gait Assessment Comments Gait Comments Amb with slow pace and dec push off PT-OP-M Strength Start: 08/18/21 11:31 Freq: Status: Active Protocol: Document 11/01/21 11:18 [facility] (Rec: 11/01/21 11:58 [facility] [id number]) Hip Strength Hip Manual Muscle Testing Right Flexion (L2) 4- Good- Extension (S1) 3 Fair Abduction 4- Good- External Rotation 4- Good- Internal Rotation 4+ Good+ Left Flexion (L2) 4- Good- Extension (S1) 3 Fair Abduction 4- Good- External Rotation 3+ Fair+ Internal Rotation 4+ Good+ Comments goes into flex B w/abd testing Knee Strength Knee Manual Muscle Testing Right Flexion (S2) 5 Normal Extension (L3) 5 Normal Left Flexion (S2) 4+ Good+ Extension (L3) 5 Normal Ankle/Foot Strength Ankle and Foot Manual Muscle Testing Right Dorsiflexion (L4) 5 Normal Plantarflexion (S1) 5 Normal Comments PF tested seated Left Dorsiflexion (L4) 4 Good Plantarflexion (S1) 4+ Good+ PT-OP-Q Treatments Start: 08/18/21 11:31 Freq: Status: Active Protocol: Document 01/19/22 11:21 [facility] (Rec: 01/19/22 12:03 [facility] [id number]) Cardio Equipment Recumbent Bicycle Duration (Minutes) 6 Resistance 6 Seat Position 11 Bicycle (Upright) Duration (Minutes) 4 Resistance 5 Seat Position 8 Gym Equipment Therapeutic Ball seated Ball Size/Color 75 cm Body Position seated Comments 1. [id number] 2. [id number] 3. bouncing for [id number] sec 4. balloon toss outside [place] x2 min Therapeutic Exercises Sitting Exercises DF Sitting Exercise Name dorsiflexion/PF Side bilateral Reps/Minutes 20 ea knee ext Side bilateral Equipment Used L1 Reps/Minutes 20 ea march Side bilateral Equipment Used L3 Reps/Minutes 30 hip ER Side bilateral Equipment Used L3 Reps/Minutes 30 Standing Exercises squat Side bilateral Reps/Minutes 10 heel raises Standing Exercise Name heel raises Side bilateral Reps/Minutes x20 ea sit to stand Side bilateral Equipment Used 18 mesh chair w/out UE support Reps/Minutes 10x Comments hands held front Neuro Re-Education Treatment Balance Activities SLS Comments 2x SLS for 10 sec with bouts of Min A staggered stance Details tandem stance Surface solid Equipment rail prn Reps/Duration 1' ea foam Comments fwd walk over foam pads x10 Self-Care/Home Management Treatment Education Caregiver Education pt reports he plans to ride his electric bike outside. Discussed w/pt that this is not a good idea and PT does not recommend this. Pt discussed possibly getting a 3 wheel bike and PT said this sounds safer. Discussed w/pt re: home bike and discussed getting small ergo that he could do in a chair. PT-OP-T Assessment and Plan Start: 08/18/21 11:31 Freq: Status: Active Protocol: Document 01/19/22 11:21 [facility] (Rec: 01/19/22 12:03 [facility] [id number]) Physical Therapy Assessment Goals sit to stand Detention Goal (LTG) Pt will be able to complete at least 10 sit to stands in 30 sec to show improved strength and funcitonal ability. 11/01-imprvoed to 7 12/13/21: 6.5 reps in 30 sec.( rounds to 7) LTG Duration 01/30/22 balance Detention Goal (LTG) Pt will be able to score at least 20/24 on DGI to show dec risk for falls. 11/01-improved to 17 12/13/20: LTG Duration 01/30/22 strength Short Term Goal (STG) Pt will be indep w/HEP STG Duration achieved progresssing as able Detention Goal (LTG) Pt will score at least 4/5 on all LE MMT to show improved strengtht o improve pt's ability to participate in home activities. 09/27-improving 11/01-improved LTG Duration 01/30/22 walking Short Term Goal (STG) Pt willb e able to complete 2 min walk test w/o requriing seated rest break at least 160ft to show improved activity tolerance. 09/27-pt having difficulty w/ SOB more over past 2 weeks. Has been having testing done to determine reason 10/25-able to do 180ft but could only go 1.5 min 11/01-215ft but still only able to go 1.5 min 12/13/20: completed 206 ft in 2 min using SPC. STG Duration achieved 12/13 Detention Goal (LTG) Pt will be able to complete 6 min walk test with distance of at least 450ft. LTG Duration 01/30/22 Assessment Summary Assessment Pt did well with balance activities today and tolerated standing for longer periods throughout the session and was able to tolerated seated exercises in place of rest most of the time. Physical Therapy Plan Frequency and Duration Frequency of Treatment 2x/Week Duration of Treatment 3 months Plan of Care Start Date 11/01/21 Plan of Care End Date 01/30/22 Next Visit Focus/Plan Next Note Type Treatment Note Next Visit Plan Attempt upright bike again. Continue with tandem balance and cont to work on uneven surfaces
--- NOTE | 2022-01-24 12:33 | PT.OTN ---
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) Muscle weakness (generalized) (01/24/22) Difficulty in walking, not elsewhere classified (01/24/22) Physical Therapy Treatment Note PT-OP-A Visit Information Start: 08/18/21 11:31 Freq: Status: Active Protocol: Document 01/24/22 11:51 MA (Rec: 01/24/22 12:33 MA [id number]) Out-Patient Physical Therapy Visit Information Visit Information Visit Type Treatment Note Visit Note 06/05 Visit Start Time 11:50 Visit Stop Time 12:32 Total Visit Minutes 42 Visit Number 34 Number of ROTARY OPERATOR Visits 1 PT-OP-B Current Condition Start: 08/18/21 11:31 Freq: Status: Active Protocol: Document 08/19/21 07:38 [facility] (Rec: 08/19/21 10:23 [facility] [id number]) Current Condition History of Current Condition Onset Date 1.5 years ago Current Complaints weakness History of Current Condition Pt was diagonosed w/ myelofibrosis which comes w/ low hematocrit and platelets and has slowly dec frequency to 4 weeks ago. He had [employer] shot February 08 and developed Guillian [place] Syndrome symptoms a few weeks later. He got his blood count done and was fine and was severe weakness. Severe weakness in legs and some in arms w/no reflexs and some facilitations whcih he doens't have it any more. He had infusions of immunoglobulin and it seemed to help a bit at first. He has an electric WC coming today that he paid for out of pocket that he plans to use when out of the house. He can recover from activity w/5 -10 min of rest. He has some ankle swelling that started aobut 6 months ago but labs have all been normal for possible CHF. Pt reports he gets SOB and weakness. He has postural hypotension. Pt reports some gradual minor memory loss. Pt has B hip replacement and a microdiscectomy L4-5. No falls . Pt sees Oncology every 3 weeks and gets a subcutaneous shot every 3 weeks which inc red blood cells. Prior to these diagnoses (1.5 years ago ), he was sailing, biking, tennis, hiking and walking. Pt reports he can cut about 3 roses then has to sit down d/t fatigue. His chores are very short. Indep w/ADLs. Can only walk 80ft before he has to rest. Prior Treatments and Tests No PT since all of this started Treatment Goals Patient/Caregiver Goals inc tolerance w/walking, inc endurance, be able to get up/ down from ground w/o outside support PT-OP-C Subjective Start: 08/18/21 11:31 Freq: Status: Active Protocol: Document 01/24/22 11:51 MA (Rec: 01/24/22 12:33 MA [id number]) OP-PT Subjective Patient Comments Patient Comments Pt felt more tired after last PT session but was able to recover after a few hours. Was not more fatigued than usual the day after. PT-OP-D Balance Start: 08/18/21 11:31 Freq: Status: Active Protocol: Document 08/19/21 07:38 [facility] (Rec: 08/19/21 10:23 [facility] [id number]) Balance Tests Dunn Balance Test Dunn Balance Test Score 46/56 PT-OP-E Functional Tests Start: 08/18/21 11:31 Freq: Status: Active Protocol: Document 12/13/21 12:10 SP (Rec: 12/13/21 13:03 SP [id number]) Functional Tests 2 Minute Walk Test Distance 206 ft Device Used SPC Comments completed 6MWT 30 Second Sit to Stand Test Score 6.5 reps in 30 sec Comments hands held front, 18 chair Dynamic Gait Index (DGI) Score 17/24 DGI Impairment Rating 20 to <40% Impaired (Score 15- 19) PT-OP-G Mobility & Gait Start: 08/18/21 11:31 Freq: Status: Active Protocol: Document 08/19/21 07:38 [facility] (Rec: 08/19/21 10:23 [facility] [id number]) OP Mobility Evaluation Bed Mobility Supine to and from Sit indep Transfers Sit to Stand able to sit to stand indep - chooses to use UEs but can w/o OP Gait Assessment Comments Gait Comments Amb with slow pace and dec push off PT-OP-M Strength Start: 08/18/21 11:31 Freq: Status: Active Protocol: Document 11/01/21 11:18 [facility] (Rec: 11/01/21 11:58 [facility] [id number]) Hip Strength Hip Manual Muscle Testing Right Flexion (L2) 4- Good- Extension (S1) 3 Fair Abduction 4- Good- External Rotation 4- Good- Internal Rotation 4+ Good+ Left Flexion (L2) 4- Good- Extension (S1) 3 Fair Abduction 4- Good- External Rotation 3+ Fair+ Internal Rotation 4+ Good+ Comments goes into flex B w/abd testing Knee Strength Knee Manual Muscle Testing Right Flexion (S2) 5 Normal Extension (L3) 5 Normal Left Flexion (S2) 4+ Good+ Extension (L3) 5 Normal Ankle/Foot Strength Ankle and Foot Manual Muscle Testing Right Dorsiflexion (L4) 5 Normal Plantarflexion (S1) 5 Normal Comments PF tested seated Left Dorsiflexion (L4) 4 Good Plantarflexion (S1) 4+ Good+ PT-OP-Q Treatments Start: 08/18/21 11:31 Freq: Status: Active Protocol: Document 01/24/22 11:51 MA (Rec: 01/24/22 12:33 MA [id number]) Cardio Equipment Bicycle (Upright) Duration (Minutes) 5 Resistance 5 Seat Position 8 Therapeutic Exercises Sitting Exercises DF Sitting Exercise Name dorsiflexion/PF Side bilateral Reps/Minutes 30 eax2 Comments - alt sets of 10 Knee flex Side bilateral Equipment Used Lvl 2 Reps/Minutes 20 ea knee ext Side bilateral Equipment Used L2 Reps/Minutes 20 ea march Side bilateral Equipment Used L3 Reps/Minutes 30 hip ER Side bilateral Equipment Used L3 Reps/Minutes 30 Standing Exercises hip ext Standing Exercise Name hip ext Side bilateral Equipment Used lvl 2 TB Reps/Minutes 2x10 hip abd Standing Exercise Name side step Side bilateral Equipment Used lvl 2 TB Reps/Minutes 20ft ea march Standing Exercise Name in place Side bilateral Reps/Minutes 15 Comments rail prn sit to stand Side bilateral Equipment Used 18 mesh chair w/out UE support Reps/Minutes 10x Comments hands held front- end of session Gait Training Gait Activity Gait Device Used None Level of Assistance SBA Surface level Distance/Duration 2x40 ft Treatment Focus increasing step width and length Neuro Re-Education Treatment Balance Activities speed change Details fast/slow Reps/Duration 2x40ft Comments fast, slow, and stopping on command carcioca Details rail prn Reps/Duration 2x15 ft Comments CGA staggered stance Details tandem stance Surface solid Equipment rail prn Reps/Duration 1' ea PT-OP-T Assessment and Plan Start: 08/18/21 11:31 Freq: Status: Active Protocol: Document 01/24/22 11:51 MA (Rec: 01/24/22 12:33 MA [id number]) Physical Therapy Assessment Goals sit to stand Longterm Goal (LTG) Pt will be able to complete at least 10 sit to stands in 30 sec to show improved strength and funcitonal ability. 11/01-imprvoed to 7 12/13/21: 6.5 reps in 30 sec.( rounds to 7) LTG Duration 01/30/22 balance Longterm Goal (LTG) Pt will be able to score at least 20/24 on DGI to show dec risk for falls. 11/01-improved to 17 12/13/20: LTG Duration 01/30/22 strength Short Term Goal (STG) Pt will be indep w/HEP STG Duration achieved progresssing as able Longterm Goal (LTG) Pt will score at least 4/5 on all LE MMT to show improved strengtht o improve pt's ability to participate in home activities. 09/27-improving 11/01-improved LTG Duration 01/30/22 walking Short Term Goal (STG) Pt willb e able to complete 2 min walk test w/o requriing seated rest break at least 160ft to show improved activity tolerance. 09/27-pt having difficulty w/ SOB more over past 2 weeks. Has been having testing done to determine reason 10/25-able to do 180ft but could only go 1.5 min 11/01-215ft but still only able to go 1.5 min 12/13/20: completed 206 ft in 2 min using SPC. STG Duration achieved 12/13 Center Punch Operator Goal (LTG) Pt will be able to complete 6 min walk test with distance of at least 450ft. LTG Duration 01/30/22 Assessment Summary Assessment Goldy is able to do 30 minutes of exercise alternating between standing exercises and sitting exercises before needing a true seated break. He feels light headed after final exercise of 10 sit<> stands but symptoms resolve after 30 seconds sitting and focusing on pt's breathing. Pt has felt fatigued after sessions but his fatigue only lasts a few hours and he is fine the next day. Encouraged pt to do more of his HEP at home then just the seated heel /toe raises and hip abduction. Physical Therapy Plan Frequency and Duration Frequency of Treatment 2x/Week Duration of Treatment 3 months Plan of Care Start Date 11/01/21 Plan of Care End Date 01/30/22 Therapeutic Interventions Therapeutic Interventions Aquatic Therapy,Balance Training,Gait Training,Home Exercise Program,Joint Mobilizations,Manual Therapy, Neuromuscular Re-education, Orthotic/Prosthetic Management ,Patient/Caregiver Education, Self-Care/Home Management,Soft Tissue Mobilization,Taping, Therapeutic Activities, Therapeutic Exercises Modalities Cold Pack/Ice Massage,Electric Stimulation,Hot Packs Next Visit Focus/Plan Next Note Type Treatment Note Next Visit Plan Attempt upright bike again. Continue with tandem balance and cont to work on uneven surfaces. Alternate between sitting and standing exercises throughout session to increase pt's endurance.
--- NOTE | 2022-01-26 11:59 | PT.OTN ---
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 (Rec: 01/26/22 11:59 [facility] [id number]) Out-Patient Physical Therapy Visit Information Visit Information Visit Type Progress Note Visit Note 12/06 Visit Start Time 11:19 Visit Stop Time 12:00 Total Visit Minutes 41 Visit Number 35 Number of SENIOR PROCUREMENT SPECIALIST Visits 0 PT-OP-B Current Condition Start: 08/18/21 11:31 Freq: Status: Active Protocol: Document 08/19/21 07:38 [facility] (Rec: 08/19/21 10:23 [facility] [id number]) Current Condition History of Current Condition Onset Date 1.5 years ago Current Complaints weakness History of Current Condition Pt was diagonosed w/ myelofibrosis which comes w/ low hematocrit and platelets and has slowly dec frequency to 4 weeks ago. He had [employer] shot February 08 and developed Guillian [place] Syndrome symptoms a few weeks later. He got his blood count done and was fine and was severe weakness. Severe weakness in legs and some in arms w/no reflexs and some facilitations whcih he doens't have it any more. He had infusions of immunoglobulin and it seemed to help a bit at first. He has an electric WC coming today that he paid for out of pocket that he plans to use when out of the house. He can recover from activity w/5 -10 min of rest. He has some ankle swelling that started aobut 6 months ago but labs have all been normal for possible CHF. Pt reports he gets SOB and weakness. He has postural hypotension. Pt reports some gradual minor memory loss. Pt has B hip replacement and a microdiscectomy L4-5. No falls . Pt sees Oncology every 3 weeks and gets a subcutaneous shot every 3 weeks which inc red blood cells. Prior to these diagnoses (1.5 years ago ), he was sailing, biking, tennis, hiking and walking. Pt reports he can cut about 3 roses then has to sit down d/t fatigue. His chores are very short. Indep w/ADLs. Can only walk 80ft before he has to rest. Prior Treatments and Tests No PT since all of this started Treatment Goals Patient/Caregiver Goals inc tolerance w/walking, inc endurance, be able to get up/ down from ground w/o outside support PT-OP-C Subjective Start: 08/18/21 11:31 Freq: Status: Active Protocol: Document 01/26/22 11:21 [facility] (Rec: 01/26/22 11:59 [facility] [id number]) OP-PT Subjective Patient Comments Patient Comments Pt reports he has a little lower hemoglobin yesterday. He feels like he progressing w/ therapy. PT-OP-D Balance Start: 08/18/21 11:31 Freq: Status: Active Protocol: Document 08/19/21 07:38 [facility] (Rec: 08/19/21 10:23 [facility] [id number]) Balance Tests Dunn Balance Test Dunn Balance Test Score 46/56 PT-OP-E Functional Tests Start: 08/18/21 11:31 Freq: Status: Active Protocol: Document 01/26/22 11:21 [facility] (Rec: 01/26/22 11:59 [facility] [id number]) Functional Tests 6 Minute Walk Test Distance 576 ft Device Used no device Comments 2 seated rest breaks 30 Second Sit to Stand Test Score 6.5 reps in 30 sec Comments hands across chest, 18 chair Dynamic Gait Index (DGI) Score 20 Five Times Sit to Stand Test Score 22 sec Functional Gait Assessment Score 16/30 PT-OP-G Mobility & Gait Start: 08/18/21 11:31 Freq: Status: Active Protocol: Document 08/19/21 07:38 [facility] (Rec: 08/19/21 10:23 [facility] [id number]) OP Mobility Evaluation Bed Mobility Supine to and from Sit indep Transfers Sit to Stand able to sit to stand indep - chooses to use UEs but can w/o OP Gait Assessment Comments Gait Comments Amb with slow pace and dec push off PT-OP-M Strength Start: 08/18/21 11:31 Freq: Status: Active Protocol: Document 01/26/22 11:21 [facility] (Rec: 01/26/22 11:59 [facility] [id number]) Hip Strength Hip Manual Muscle Testing Right Flexion (L2) 4+ Good+ Extension (S1) 3+ Fair+ Abduction 4- Good- External Rotation 4- Good- Internal Rotation 5 Normal Left Flexion (L2) 4 Good Extension (S1) 3+ Fair+ Abduction 4 Good External Rotation 4 Good Internal Rotation 5 Normal Comments goes into flex B w/abd testing Knee Strength Knee Manual Muscle Testing Right Flexion (S2) 5 Normal Extension (L3) 5 Normal Left Flexion (S2) 5 Normal Extension (L3) 5 Normal Ankle/Foot Strength Ankle and Foot Manual Muscle Testing Right Dorsiflexion (L4) 5 Normal Plantarflexion (S1) 5 Normal Comments PF tested seated Left Dorsiflexion (L4) 4 Good Plantarflexion (S1) 4+ Good+ PT-OP-Q Treatments Start: 08/18/21 11:31 Freq: Status: Active Protocol: Document 01/26/22 11:21 [facility] (Rec: 01/26/22 11:59 [facility] [id number]) Cardio Equipment Bicycle (Upright) Duration (Minutes) 5 Resistance 6 Seat Position 8 Therapeutic Exercises Standing Exercises sit to stand Side bilateral Reps/Minutes 30 sec sit to stand test Comments hands across chest Other Exercises 2 min walk test Other Exercise Name 6 min walk test performed Reps/Minutes 576ft Neuro Re-Education Treatment Balance Activities DGI Details DGI & FGA performed PT-OP-T Assessment and Plan Start: 08/18/21 11:31 Freq: Status: Active Protocol: Document 01/26/22 11:21 [facility] (Rec: 01/26/22 11:59 [facility] [id number]) Physical Therapy Assessment Goals sit to stand Prison Goal (LTG) Pt will be able to complete at least 10 sit to stands in 30 sec to show improved strength and funcitonal ability. 11/01-imprvoed to 7 12/13/21: 6.5 reps in 30 sec.( rounds to 7) 3/2-6.5 reps LTG Duration 04/28/22 balance Short Term Goal (STG) Pt will be able to score at least 20/24 on DGI to show dec risk for falls. 11/01-improved to 17 12/13/20: 17/24 STG Duration achieved 3/2 to 20 Prison Goal (LTG) Pt will score at least 22/30 to show dec risk for falls on FGA LTG Duration 04/28/22 strength Short Term Goal (STG) Pt will be indep w/HEP STG Duration achieved progresssing as able Prison Goal (LTG) Pt will score at least 4/5 on all LE MMT to show improved strengtht o improve pt's ability to participate in home activities. 09/27-improving 11/01-improved 3/-improved limited in ext & ER & abd LTG Duration 04/28/22 walking Short Term Goal (STG) Pt willb e able to complete 2 min walk test w/o requriing seated rest break at least 160ft to show improved activity tolerance. 09/27-pt having difficulty w/ SOB more over past 2 weeks. Has been having testing done to determine reason 10/25-able to do 180ft but could only go 1.5 min 11/01-215ft but still only able to go 1.5 min 12/13/20: completed 206 ft in 2 min using SPC. STG Duration achieved 12/13 Substation Operator Helper Goal (LTG) Pt will be able to complete 6 min walk test with distance of at least 450ft. 01/26-achieved to 576ft progress goal to 800ft in 6 min LTG Duration 04/28/22 Assessment Summary Assessment Pt continues to progress towards goals at this time w/ improved MMT tests today, DGI testing, and was able to complete 6 min walk test w/ only 2 rest breaks and go for 576ft. He feels improvement functionally at home overall. Cont PT to work on strength and balance. Physical Therapy Plan Frequency and Duration Frequency of Treatment 1-2x Duration of Treatment 3 months Plan of Care Start Date 01/26/22 Plan of Care End Date 04/28/22 Therapeutic Interventions Therapeutic Interventions Aquatic Therapy,Balance Training,Gait Training,Home Exercise Program,Joint Mobilizations,Manual Therapy, Neuromuscular Re-education, Orthotic/Prosthetic Management ,Patient/Caregiver Education, Self-Care/Home Management,Soft Tissue Mobilization,Taping, Therapeutic Activities, Therapeutic Exercises Modalities Cold Pack/Ice Massage,Electric Stimulation,Hot Packs Next Visit Focus/Plan Next Note Type Treatment Note Next Visit Plan upright bike again. Continue with tandem balance and cont to work on uneven surfaces. Alternate between sitting and standing exercises throughout session to increase pt's endurance.
--- NOTE | 2022-01-26 11:59 | PT.OPPOC ---
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 (Rec: 01/26/22 11:59 [facility] [id number]) Physical Therapy Assessment Goals sit to stand Journeyman Lineman Goal (LTG) Pt will be able to complete at least 10 sit to stands in 30 sec to show improved strength and funcitonal ability. 11/01-imprvoed to 7 12/13/21: 6.5 reps in 30 sec.( rounds to 7) 3/2-6.5 reps LTG Duration 04/28/22 balance Short Term Goal (STG) Pt will be able to score at least 20/24 on DGI to show dec risk for falls. 11/01-improved to 17 12/13/20: 17/24 STG Duration achieved 3/2 to 20 Penitentiary Goal (LTG) Pt will score at least 22/30 to show dec risk for falls on FGA LTG Duration 04/28/22 strength Short Term Goal (STG) Pt will be indep w/HEP STG Duration achieved progresssing as able Journeyman Lineman Goal (LTG) Pt will score at least 4/5 on all LE MMT to show improved strengtht o improve pt's ability to participate in home activities. 09/27-improving 11/01-improved 3/2-improved limited in ext & ER & abd LTG Duration 04/28/22 walking Short Term Goal (STG) Pt willb e able to complete 2 min walk test w/o requriing seated rest break at least 160ft to show improved activity tolerance. 11/1-pt having difficulty w/ SOB more over past 2 weeks. Has been having testing done to determine reason 10/25-able to do 180ft but could only go 1.5 min 11/01-215ft but still only able to go 1.5 min 12/13/20: completed 206 ft in 2 min using SPC. STG Duration achieved 12/13 Journeyman Lineman Goal (LTG) Pt will be able to complete 6 min walk test with distance of at least 450ft. 01/26-achieved to 576ft progress goal to 800ft in 6 min LTG Duration 04/28/22 Assessment Summary Assessment Pt continues to progress towards goals at this time w/ improved MMT tests today, DGI testing, and was able to complete 6 min walk test w/ only 2 rest breaks and go for 576ft. He feels improvement functionally at home overall. Cont PT to work on strength and balance. Physical Therapy Plan Frequency and Duration Frequency of Treatment 1-2x Duration of Treatment 3 months Plan of Care Start Date 01/26/22 Plan of Care End Date 04/28/22 Therapeutic Interventions Therapeutic Interventions Aquatic Therapy,Balance Training,Gait Training,Home Exercise Program,Joint Mobilizations,Manual Therapy, Neuromuscular Re-education, Orthotic/Prosthetic Management ,Patient/Caregiver Education, Self-Care/Home Management,Soft Tissue Mobilization,Taping, Therapeutic Activities, Therapeutic Exercises Modalities Cold Pack/Ice Massage,Electric Stimulation,Hot Packs Next Visit Focus/Plan Next Note Type Treatment Note Next Visit Plan upright bike again. Continue with tandem balance and cont to work on uneven surfaces. Alternate between sitting and standing exercises throughout session to increase pt's endurance. Plan of Care Dates Plan of Care Start Date 01/26/22 Plan of Care End Date 04/28/22 Electronically Signed by: Cydney Tracy, PT 01/26/22 [id number] Please Sign and Return: I have reviewed this Plan of Care and certify that the skilled therapy services above are required to meet the patient?s needs. Physician Signature Date Printed Name and Credentials Clinical Instructor Signature Printed Name and Credentials
--- NOTE | 2022-02-04 11:51 | PT.OTN ---
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) Muscle weakness (generalized) (02/04/22) Difficulty in walking, not elsewhere classified (02/04/22) Physical Therapy Treatment Note PT-OP-A Visit Information Start: 08/18/21 11:31 Freq: Status: Active Protocol: Document 02/04/22 11:06 MA (Rec: 02/04/22 11:51 MA [id number]) Out-Patient Physical Therapy Visit Information Visit Information Visit Type Treatment Note Visit Note 01/06 Visit Start Time 11:07 Visit Stop Time 11:50 Total Visit Minutes 43 Visit Number 36 Number of MAIL HANDLERS SUPERVISOR Visits 1 PT-OP-B Current Condition Start: 08/18/21 11:31 Freq: Status: Active Protocol: Document 08/19/21 07:38 [facility] (Rec: 08/19/21 10:23 [facility] [id number]) Current Condition History of Current Condition Onset Date 1.5 years ago Current Complaints weakness History of Current Condition Pt was diagonosed w/ myelofibrosis which comes w/ low hematocrit and platelets and has slowly dec frequency to 4 weeks ago. He had BuzzSumo shot February 08 and developed Guillian [place] Syndrome symptoms a few weeks later. He got his blood count done and was fine and was severe weakness. Severe weakness in legs and some in arms w/no reflexs and some facilitations whcih he doens't have it any more. He had infusions of immunoglobulin and it seemed to help a bit at first. He has an electric WC coming today that he paid for out of pocket that he plans to use when out of the house. He can recover from activity w/5 -10 min of rest. He has some ankle swelling that started aobut 6 months ago but labs have all been normal for possible CHF. Pt reports he gets SOB and weakness. He has postural hypotension. Pt reports some gradual minor memory loss. Pt has B hip replacement and a microdiscectomy L4-5. No falls . Pt sees Oncology every 3 weeks and gets a subcutaneous shot every 3 weeks which inc red blood cells. Prior to these diagnoses (1.5 years ago ), he was sailing, biking, tennis, hiking and walking. Pt reports he can cut about 3 roses then has to sit down d/t fatigue. His chores are very short. Indep w/ADLs. Can only walk 80ft before he has to rest. Prior Treatments and Tests No PT since all of this started Treatment Goals Patient/Caregiver Goals inc tolerance w/walking, inc endurance, be able to get up/ down from ground w/o outside support PT-OP-C Subjective Start: 08/18/21 11:31 Freq: Status: Active Protocol: Document 02/04/22 11:06 MA (Rec: 02/04/22 11:51 MA [id number]) OP-PT Subjective Patient Comments Patient Comments PT feels his blood count is low and has a blood test after therapy today. He pumped up his bike at home and is still planning on trying to ride it. PT-OP-D Balance Start: 08/18/21 11:31 Freq: Status: Active Protocol: Document 08/19/21 07:38 [facility] (Rec: 08/19/21 10:23 [facility] [id number]) Balance Tests Dunn Balance Test Dunn Balance Test Score 46/56 PT-OP-E Functional Tests Start: 08/18/21 11:31 Freq: Status: Active Protocol: Document 01/26/22 11:21 [facility] (Rec: 01/26/22 11:59 [facility] [id number]) Functional Tests 6 Minute Walk Test Distance 576 ft Device Used no device Comments 2 seated rest breaks 30 Second Sit to Stand Test Score 6.5 reps in 30 sec Comments hands across chest, 18 chair Dynamic Gait Index (DGI) Score 20 Five Times Sit to Stand Test Score 22 sec Functional Gait Assessment Score 16/30 PT-OP-G Mobility & Gait Start: 08/18/21 11:31 Freq: Status: Active Protocol: Document 08/19/21 07:38 [facility] (Rec: 08/19/21 10:23 [facility] [id number]) OP Mobility Evaluation Bed Mobility Supine to and from Sit indep Transfers Sit to Stand able to sit to stand indep - chooses to use UEs but can w/o OP Gait Assessment Comments Gait Comments Amb with slow pace and dec push off PT-OP-M Strength Start: 08/18/21 11:31 Freq: Status: Active Protocol: Document 01/26/22 11:21 [facility] (Rec: 01/26/22 11:59 [facility] [id number]) Hip Strength Hip Manual Muscle Testing Right Flexion (L2) 4+ Good+ Extension (S1) 3+ Fair+ Abduction 4- Good- External Rotation 4- Good- Internal Rotation 5 Normal Left Flexion (L2) 4 Good Extension (S1) 3+ Fair+ Abduction 4 Good External Rotation 4 Good Internal Rotation 5 Normal Comments goes into flex B w/abd testing Knee Strength Knee Manual Muscle Testing Right Flexion (S2) 5 Normal Extension (L3) 5 Normal Left Flexion (S2) 5 Normal Extension (L3) 5 Normal Ankle/Foot Strength Ankle and Foot Manual Muscle Testing Right Dorsiflexion (L4) 5 Normal Plantarflexion (S1) 5 Normal Comments PF tested seated Left Dorsiflexion (L4) 4 Good Plantarflexion (S1) 4+ Good+ PT-OP-Q Treatments Start: 08/18/21 11:31 Freq: Status: Active Protocol: Document 02/04/22 11:06 MA (Rec: 02/04/22 11:51 MA [id number]) Cardio Equipment Recumbent Bicycle Duration (Minutes) 6 Resistance 6 Seat Position 11 Therapeutic Exercises Sitting Exercises Adduction Sitting Exercise Name Hip Add Side bilateral Equipment Used small ball Reps/Minutes 10x 10SH DF Sitting Exercise Name dorsiflexion/PF Side bilateral Reps/Minutes 30 eax2 Knee flex Side bilateral Equipment Used Lvl 3 Reps/Minutes 20 ea knee ext Side bilateral Equipment Used L2 Reps/Minutes 20 ea march Side bilateral Equipment Used L3 Reps/Minutes 30 hip ER Side bilateral Equipment Used L3 Reps/Minutes 30 Gait Training Gait Activity Gait Device Used None Level of Assistance SBA Surface level Distance/Duration 1 lap around gym Treatment Focus increasing step width and length Neuro Re-Education Treatment Balance Activities staggered stance Details tandem stance Surface solid Equipment rail prn Reps/Duration 1' ea Comments pt could only make it 30 today before requiring seated rest breaks hurdles Comments 1. Single amandeep stepping fwd and lateral working on increasing step height 2. 6 hurdles step through fwd gait rail prn x4 2. side step over 6 hurdles- 4x PT-OP-T Assessment and Plan Start: 08/18/21 11:31 Freq: Status: Active Protocol: Document 02/04/22 11:06 MA (Rec: 02/04/22 11:51 MA [id number]) Physical Therapy Assessment Goals sit to stand Senior Financial Analyst Goal (LTG) Pt will be able to complete at least 10 sit to stands in 30 sec to show improved strength and funcitonal ability. 11/01-imprvoed to 7 12/13/21: 6.5 reps in 30 sec.( rounds to 7) 3/2-6.5 reps LTG Duration 04/28/22 balance Short Term Goal (STG) Pt will be able to score at least 20/24 on DGI to show dec risk for falls. 11/01-improved to 17 12/13/20: STG Duration achieved 3/2 to 20 Senior Financial Analyst Goal (LTG) Pt will score at least 22/30 to show dec risk for falls on FGA LTG Duration 04/28/22 strength Short Term Goal (STG) Pt will be indep w/HEP STG Duration achieved progresssing as able Senior Financial Analyst Goal (LTG) Pt will score at least 4/5 on all LE MMT to show improved strengtht o improve pt's ability to participate in home activities. 09/27-improving 11/01-improved 3/2-improved limited in ext & ER & abd LTG Duration 04/28/22 walking Short Term Goal (STG) Pt willb e able to complete 2 min walk test w/o requriing seated rest break at least 160ft to show improved activity tolerance. 09/27-pt having difficulty w/ SOB more over past 2 weeks. Has been having testing done to determine reason 10/25-able to do 180ft but could only go 1.5 min 11/01-215ft but still only able to go 1.5 min 12/13/20: completed 206 ft in 2 min using SPC. STG Duration achieved 12/13 Group Home Goal (LTG) Pt will be able to complete 6 min walk test with distance of at least 450ft. 2-achieved to 576ft progress goal to 800ft in 6 min LTG Duration 04/28/22 Assessment Summary Assessment Goldy has difficulty alternating between sitting/ standing exercises this session and requires rest breaks due to SOB and fatigue. Pt continues to talk about attempting to use bicycle at home. MAIL HANDLERS SUPERVISOR tells pt that he is still unsafe to use bike at home but if he is going to attempt biking then he needs to wait until he has his infusion due to feeling very fatigued and SOB this session. Physical Therapy Plan Frequency and Duration Frequency of Treatment 1-2x Duration of Treatment 3 months Plan of Care Start Date 01/26/22 Plan of Care End Date 04/28/22 Therapeutic Interventions Therapeutic Interventions Aquatic Therapy,Balance Training,Gait Training,Home Exercise Program,Joint Mobilizations,Manual Therapy, Neuromuscular Re-education, Orthotic/Prosthetic Management ,Patient/Caregiver Education, Self-Care/Home Management,Soft Tissue Mobilization,Taping, Therapeutic Activities, Therapeutic Exercises Modalities Cold Pack/Ice Massage,Electric Stimulation,Hot Packs Next Visit Focus/Plan Next Note Type Treatment Note Next Visit Plan upright bike, continue with tandem balance and cont to work on uneven surfaces. Alternate between sitting and standing exercises throughout session to increase pt's endurance.
--- NOTE | 2022-02-09 10:30 | PT.OTN ---
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) Muscle weakness (generalized) (02/09/22) Difficulty in walking, not elsewhere classified (02/09/22) Physical Therapy Treatment Note PT-OP-A Visit Information Start: 08/18/21 11:31 Freq: Status: Active Protocol: Document 02/09/22 09:47 [facility] (Rec: 02/09/22 10:29 [facility] [id number]) Out-Patient Physical Therapy Visit Information Visit Information Visit Type Treatment Note Visit Note 02/03 Visit Start Time 09:48 Visit Stop Time 10:29 Total Visit Minutes 41 Visit Number 37 Number of FUEL RETROFITTING TECHNICIAN Visits 0 PT-OP-B Current Condition Start: 08/18/21 11:31 Freq: Status: Active Protocol: Document 08/19/21 07:38 [facility] (Rec: 08/19/21 10:23 [facility] [id number]) Current Condition History of Current Condition Onset Date 1.5 years ago Current Complaints weakness History of Current Condition Pt was diagonosed w/ myelofibrosis which comes w/ low hematocrit and platelets and has slowly dec frequency to 4 weeks ago. He had zuuka! shot February 08 and developed Guillian [place] Syndrome symptoms a few weeks later. He got his blood count done and was fine and was severe weakness. Severe weakness in legs and some in arms w/no reflexs and some facilitations whcih he doens't have it any more. He had infusions of immunoglobulin and it seemed to help a bit at first. He has an electric WC coming today that he paid for out of pocket that he plans to use when out of the house. He can recover from activity w/5 -10 min of rest. He has some ankle swelling that started aobut 6 months ago but labs have all been normal for possible CHF. Pt reports he gets SOB and weakness. He has postural hypotension. Pt reports some gradual minor memory loss. Pt has B hip replacement and a microdiscectomy L4-5. No falls . Pt sees Oncology every 3 weeks and gets a subcutaneous shot every 3 weeks which inc red blood cells. Prior to these diagnoses (1.5 years ago ), he was sailing, biking, tennis, hiking and walking. Pt reports he can cut about 3 roses then has to sit down d/t fatigue. His chores are very short. Indep w/ADLs. Can only walk 80ft before he has to rest. Prior Treatments and Tests No PT since all of this started Treatment Goals Patient/Caregiver Goals inc tolerance w/walking, inc endurance, be able to get up/ down from ground w/o outside support PT-OP-C Subjective Start: 08/18/21 11:31 Freq: Status: Active Protocol: Document 02/09/22 09:47 [facility] (Rec: 02/09/22 10:29 [facility] [id number]) OP-PT Subjective Patient Comments Patient Comments Pt reports getting imunoglobulin Sat and Monday and feeling good on monday but today feels back to his baseline but his balance feels better. Pt notes he is losing his sense of taste and has an appt with the neurologist next week. PT-OP-D Balance Start: 08/18/21 11:31 Freq: Status: Active Protocol: Document 08/19/21 07:38 [facility] (Rec: 08/19/21 10:23 [facility] [id number]) Balance Tests Dunn Balance Test Dunn Balance Test Score 46/56 PT-OP-E Functional Tests Start: 08/18/21 11:31 Freq: Status: Active Protocol: Document 01/26/22 11:21 [facility] (Rec: 01/26/22 11:59 [facility] [id number]) Functional Tests 6 Minute Walk Test Distance 576 ft Device Used no device Comments 2 seated rest breaks 30 Second Sit to Stand Test Score 6.5 reps in 30 sec Comments hands across chest, 18 chair Dynamic Gait Index (DGI) Score 20 Five Times Sit to Stand Test Score 22 sec Functional Gait Assessment Score 16/30 PT-OP-G Mobility & Gait Start: 08/18/21 11:31 Freq: Status: Active Protocol: Document 08/19/21 07:38 [facility] (Rec: 08/19/21 10:23 [facility] [id number]) OP Mobility Evaluation Bed Mobility Supine to and from Sit indep Transfers Sit to Stand able to sit to stand indep - chooses to use UEs but can w/o OP Gait Assessment Comments Gait Comments Amb with slow pace and dec push off PT-OP-M Strength Start: 08/18/21 11:31 Freq: Status: Active Protocol: Document 01/26/22 11:21 [facility] (Rec: 01/26/22 11:59 [facility] [id number]) Hip Strength Hip Manual Muscle Testing Right Flexion (L2) 4+ Good+ Extension (S1) 3+ Fair+ Abduction 4- Good- External Rotation 4- Good- Internal Rotation 5 Normal Left Flexion (L2) 4 Good Extension (S1) 3+ Fair+ Abduction 4 Good External Rotation 4 Good Internal Rotation 5 Normal Comments goes into flex B w/abd testing Knee Strength Knee Manual Muscle Testing Right Flexion (S2) 5 Normal Extension (L3) 5 Normal Left Flexion (S2) 5 Normal Extension (L3) 5 Normal Ankle/Foot Strength Ankle and Foot Manual Muscle Testing Right Dorsiflexion (L4) 5 Normal Plantarflexion (S1) 5 Normal Comments PF tested seated Left Dorsiflexion (L4) 4 Good Plantarflexion (S1) 4+ Good+ PT-OP-Q Treatments Start: 08/18/21 11:31 Freq: Status: Active Protocol: Document 02/09/22 09:47 [facility] (Rec: 02/09/22 10:29 [facility] [id number]) Cardio Equipment Bicycle (Upright) Duration (Minutes) 6 Resistance 6 Seat Position 8 Therapeutic Exercises Sitting Exercises Adduction Sitting Exercise Name Hip Add Side bilateral Equipment Used small ball Reps/Minutes 10x 10SH DF Sitting Exercise Name dorsiflexion/PF Side bilateral Reps/Minutes 30 eax2 Knee flex Side bilateral Equipment Used Lvl 3 Reps/Minutes 20 ea knee ext Side bilateral Equipment Used L1 Reps/Minutes 20 ea march Side bilateral Equipment Used L3 Reps/Minutes 30 hip ER Side bilateral Equipment Used L3 Reps/Minutes 30 Standing Exercises squat Side bilateral Reps/Minutes 10 Neuro Re-Education Treatment Balance Activities head turns Comments 1. fwd walking down harding- horizontal and vertical 2x50ft ea hurdles Comments 1. Single amandeep stepping fwd and lateral working on increasing step [id number] 2. 6 hurdles step through fwd gait rail prn x6 2. side step over 6 hurdles- 2x foam Comments blue foam WBOS & NBOS vertical and horizontal turns & EC trials PT-OP-T Assessment and Plan Start: 08/18/21 11:31 Freq: Status: Active Protocol: Document 02/09/22 09:47 [facility] (Rec: 02/09/22 10:29 [facility] [id number]) Physical Therapy Assessment Goals sit to stand Tray Delivery Aide Goal (LTG) Pt will be able to complete at least 10 sit to stands in 30 sec to show improved strength and funcitonal ability. 11/01-imprvoed to 7 12/13/21: 6.5 reps in 30 sec.( rounds to 7) 3/2-6.5 reps LTG Duration 04/28/22 balance Short Term Goal (STG) Pt will be able to score at least 20/24 on DGI to show dec risk for falls. 11/01-improved to 17 12/13/20: STG Duration achieved 3/2 to 20 Usp Goal (LTG) Pt will score at least 22/30 to show dec risk for falls on FGA LTG Duration 04/28/22 strength Short Term Goal (STG) Pt will be indep w/HEP STG Duration achieved progresssing as able Usp Goal (LTG) Pt will score at least 4/5 on all LE MMT to show improved strengtht o improve pt's ability to participate in home activities. 09/27-improving 11/01-improved 3/2-improved limited in ext & ER & abd LTG Duration 04/28/22 walking Short Term Goal (STG) Pt willb e able to complete 2 min walk test w/o requriing seated rest break at least 160ft to show improved activity tolerance. 09/27-pt having difficulty w/ SOB more over past 2 weeks. Has been having testing done to determine reason 10/25-able to do 180ft but could only go 1.5 min 11/01-215ft but still only able to go 1.5 min 12/13/20: completed 206 ft in 2 min using SPC. STG Duration achieved 12/13 Tray Delivery Aide Goal (LTG) Pt will be able to complete 6 min walk test with distance of at least 450ft. 01/26-achieved to 576ft progress goal to 800ft in 6 min LTG Duration 04/28/22 Assessment Summary Assessment Pt did well with alt between sitting and standing exercises today w/more tolerance to doing exercise thorughout the session w/les s breaks. He did very well with sidesteps w/ hurdles w/large steps w/o LOB Physical Therapy Plan Frequency and Duration Frequency of Treatment 1-2x/wk Duration of Treatment 3 months Plan of Care Start Date 01/26/22 Plan of Care End Date 04/28/22 Next Visit Focus/Plan Next Note Type Treatment Note Next Visit Plan upright bike, continue progressive balance. Alternate between sitting and standing exercises throughout session to increase pt's endurance.
--- NOTE | 2022-02-11 11:09 | PT.OTN ---
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) Muscle weakness (generalized) (02/11/22) Difficulty in walking, not elsewhere classified (02/11/22) Physical Therapy Treatment Note PT-OP-A Visit Information Start: 08/18/21 11:31 Freq: Status: Active Protocol: Document 02/11/22 10:25 MA (Rec: 02/11/22 11:09 MA [id number]) Out-Patient Physical Therapy Visit Information Visit Information Visit Type Treatment Note Visit Note 03/06 Visit Start Time 10:25 Visit Stop Time 11:05 Total Visit Minutes 40 Visit Number 38 Number of CITY SUPERINTENDENT Visits 1 PT-OP-B Current Condition Start: 08/18/21 11:31 Freq: Status: Active Protocol: Document 08/19/21 07:38 [facility] (Rec: 08/19/21 10:23 [facility] [id number]) Current Condition History of Current Condition Onset Date 1.5 years ago Current Complaints weakness History of Current Condition Pt was diagonosed w/ myelofibrosis which comes w/ low hematocrit and platelets and has slowly dec frequency to 4 weeks ago. He had [employer] shot February 08 and developed Guillian [place] Syndrome symptoms a few weeks later. He got his blood count done and was fine and was severe weakness. Severe weakness in legs and some in arms w/no reflexs and some facilitations whcih he doens't have it any more. He had infusions of immunoglobulin and it seemed to help a bit at first. He has an electric WC coming today that he paid for out of pocket that he plans to use when out of the house. He can recover from activity w/5 -10 min of rest. He has some ankle swelling that started aobut 6 months ago but labs have all been normal for possible CHF. Pt reports he gets SOB and weakness. He has postural hypotension. Pt reports some gradual minor memory loss. Pt has B hip replacement and a microdiscectomy L4-5. No falls . Pt sees Oncology every 3 weeks and gets a subcutaneous shot every 3 weeks which inc red blood cells. Prior to these diagnoses (1.5 years ago ), he was sailing, biking, tennis, hiking and walking. Pt reports he can cut about 3 roses then has to sit down d/t fatigue. His chores are very short. Indep w/ADLs. Can only walk 80ft before he has to rest. 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 He had imunoglobulin injections last weekend so this week was a better week for his balance and breathing. PT-OP-D Balance Start: 08/18/21 11:31 Freq: Status: Active Protocol: Document 08/19/21 07:38 [facility] (Rec: 08/19/21 10:23 [facility] [id number]) Balance Tests Dunn Balance Test Dunn Balance Test Score 46/56 PT-OP-E Functional Tests Start: 08/18/21 11:31 Freq: Status: Active Protocol: Document 01/26/22 11:21 [facility] (Rec: 01/26/22 11:59 [facility] [id number]) Functional Tests 6 Minute Walk Test Distance 576 ft Device Used no device Comments 2 seated rest breaks 30 Second Sit to Stand Test Score 6.5 reps in 30 sec Comments hands across chest, 18 chair Dynamic Gait Index (DGI) Score 20 Five Times Sit to Stand Test Score 22 sec Functional Gait Assessment Score 16/30 PT-OP-G Mobility & Gait Start: 08/18/21 11:31 Freq: Status: Active Protocol: Document 08/19/21 07:38 [facility] (Rec: 08/19/21 10:23 [facility] [id number]) OP Mobility Evaluation Bed Mobility Supine to and from Sit indep Transfers Sit to Stand able to sit to stand indep - chooses to use UEs but can w/o OP Gait Assessment Comments Gait Comments Amb with slow pace and dec push off PT-OP-M Strength Start: 08/18/21 11:31 Freq: Status: Active Protocol: Document 01/26/22 11:21 [facility] (Rec: 01/26/22 11:59 [facility] [id number]) Hip Strength Hip Manual Muscle Testing Right Flexion (L2) 4+ Good+ Extension (S1) 3+ Fair+ Abduction 4- Good- External Rotation 4- Good- Internal Rotation 5 Normal Left Flexion (L2) 4 Good Extension (S1) 3+ Fair+ Abduction 4 Good External Rotation 4 Good Internal Rotation 5 Normal Comments goes into flex B w/abd testing Knee Strength Knee Manual Muscle Testing Right Flexion (S2) 5 Normal Extension (L3) 5 Normal Left Flexion (S2) 5 Normal Extension (L3) 5 Normal Ankle/Foot Strength Ankle and Foot Manual Muscle Testing Right Dorsiflexion (L4) 5 Normal Plantarflexion (S1) 5 Normal Comments PF tested seated Left Dorsiflexion (L4) 4 Good Plantarflexion (S1) 4+ Good+ PT-OP-Q Treatments Start: 08/18/21 11:31 Freq: Status: Active Protocol: Document 02/11/22 10:25 MA (Rec: 02/11/22 11:09 MA [id number]) Cardio Equipment Bicycle (Upright) Duration (Minutes) 6 Resistance 6 Seat Position 8 Therapeutic Exercises Sitting Exercises Adduction Sitting Exercise Name Hip Add Side bilateral Equipment Used small ball Reps/Minutes 10x 10SH DF Sitting Exercise Name dorsiflexion/PF Side bilateral Reps/Minutes 30 eax2 Knee flex Side bilateral Equipment Used Lvl 3 Reps/Minutes 20 ea knee ext Side bilateral Equipment Used L3 Reps/Minutes 20 ea march Side bilateral Equipment Used L3 Reps/Minutes 30 Gait Training Gait Activity Gait Device Used None Level of Assistance SBA Surface level Distance/Duration 2 lap around gym, seated rest b/w Treatment Focus increasing step width and length Neuro Re-Education Treatment Balance Activities staggered stance Surface solid Equipment rail prn Reps/Duration 1' ea Comments 1. staggered stance (mod tandem) throwing ball at rebounder 2. tandem stance with rail prn PT-OP-T Assessment and Plan Start: 08/18/21 11:31 Freq: Status: Active Protocol: Document 02/11/22 10:25 MA (Rec: 02/11/22 11:09 MA [id number]) Physical Therapy Assessment Goals sit to stand Penitentiary Goal (LTG) Pt will be able to complete at least 10 sit to stands in 30 sec to show improved strength and funcitonal ability. 12/6-imprvoed to 7 12/13/21: 6.5 reps in 30 sec.( rounds to 7) 3/2-6.5 reps LTG Duration 04/28/22 balance Short Term Goal (STG) Pt will be able to score at least 20/24 on DGI to show dec risk for falls. 11/01-improved to 17 12/13/20: STG Duration achieved 3/2 to 20 Surg Rn Goal (LTG) Pt will score at least 22/30 to show dec risk for falls on FGA LTG Duration 04/28/22 strength Short Term Goal (STG) Pt will be indep w/HEP STG Duration achieved progresssing as able Surg Rn Goal (LTG) Pt will score at least 4/5 on all LE MMT to show improved strengtht o improve pt's ability to participate in home activities. 09/27-improving 11/01-improved 3/-improved limited in ext & ER & abd LTG Duration 04/28/22 walking Short Term Goal (STG) Pt willb e able to complete 2 min walk test w/o requriing seated rest break at least 160ft to show improved activity tolerance. 09/27-pt having difficulty w/ SOB more over past 2 weeks. Has been having testing done to determine reason 10/25-able to do 180ft but could only go 1.5 min 11/01-215ft but still only able to go 1.5 min 12/13/20: completed 206 ft in 2 min using SPC. STG Duration achieved 12/13 Penitentiary Goal (LTG) Pt will be able to complete 6 min walk test with distance of at least 450ft. 2-achieved to 576ft progress goal to 800ft in 6 min LTG Duration 04/28/22 Assessment Summary Assessment Goldy is better able to balance in tandem when RLE is back. As pt fatigues during gait he requires frequent cues to keep increasing step height or will scuff feet while walking. Physical Therapy Plan Frequency and Duration Frequency of Treatment 1-2x/wk Duration of Treatment 3 months Plan of Care Start Date 01/26/22 Plan of Care End Date 04/28/22 Therapeutic Interventions Therapeutic Interventions Aquatic Therapy,Balance Training,Gait Training,Home Exercise Program,Joint Mobilizations,Manual Therapy, Neuromuscular Re-education, Orthotic/Prosthetic Management ,Patient/Caregiver Education, Self-Care/Home Management,Soft Tissue Mobilization,Taping, Therapeutic Activities, Therapeutic Exercises Modalities Cold Pack/Ice Massage,Electric Stimulation,Hot Packs Next Visit Focus/Plan Next Note Type Treatment Note Next Visit Plan upright bike, continue progressive balance. Alternate between sitting and standing exercises throughout session to increase pt's endurance.
--- NOTE | 2022-03-04 12:51 | PT.OTN ---
Current Diagnoses Guillain-[place] syndrome (03/04/22) Muscle weakness (generalized) (03/04/22) Difficulty in walking, not elsewhere classified (03/04/22) Physical Therapy Treatment Note PT-OP-A Visit Information Start: 08/18/21 11:31 Freq: Status: Active Protocol: Document 03/04/22 12:06 MA (Rec: 03/04/22 12:51 MA [id number]) Out-Patient Physical Therapy Visit Information Visit Information Visit Type Treatment Note Visit Note 04/05 Visit Start Time 12:05 Visit Stop Time 12:48 Total Visit Minutes 43 Visit Number 39 Number of BASIN CLEANER Visits 2 PT-OP-B Current Condition Start: 08/18/21 11:31 Freq: Status: Active Protocol: Document 08/19/21 07:38 [facility] (Rec: 08/19/21 10:23 [facility] [id number]) Current Condition History of Current Condition Onset Date 1.5 years ago Current Complaints weakness History of Current Condition Pt was diagonosed w/ myelofibrosis which comes w/ low hematocrit and platelets and has slowly dec frequency to 4 weeks ago. He had [employer] shot February 08 and developed Guillian [place] Syndrome symptoms a few weeks later. He got his blood count done and was fine and was severe weakness. Severe weakness in legs and some in arms w/no reflexs and some facilitations whcih he doens't have it any more. He had infusions of immunoglobulin and it seemed to help a bit at first. He has an electric WC coming today that he paid for out of pocket that he plans to use when out of the house. He can recover from activity w/5 -10 min of rest. He has some ankle swelling that started aobut 6 months ago but labs have all been normal for possible CHF. Pt reports he gets SOB and weakness. He has postural hypotension. Pt reports some gradual minor memory loss. Pt has B hip replacement and a microdiscectomy L4-5. No falls . Pt sees Oncology every 3 weeks and gets a subcutaneous shot every 3 weeks which inc red blood cells. Prior to these diagnoses (1.5 years ago ), he was sailing, biking, tennis, hiking and walking. Pt reports he can cut about 3 roses then has to sit down d/t fatigue. His chores are very short. Indep w/ADLs. Can only walk 80ft before he has to rest. Prior Treatments and Tests No PT since all of this started Treatment Goals Patient/Caregiver Goals inc tolerance w/walking, inc endurance, be able to get up/ down from ground w/o outside support PT-OP-C Subjective Start: 08/18/21 11:31 Freq: Status: Active Protocol: Document 03/04/22 12:06 MA (Rec: 03/04/22 12:51 MA [id number]) OP-PT Subjective Patient Comments Patient Comments Pt picked up his electric bike but has not tried it yet. He had no issues breathing at 6000 ft elevation on vaction. PT-OP-D Balance Start: 08/18/21 11:31 Freq: Status: Active Protocol: Document 08/19/21 07:38 [facility] (Rec: 08/19/21 10:23 [facility] [id number]) Balance Tests Dunn Balance Test Dunn Balance Test Score 46/56 PT-OP-E Functional Tests Start: 08/18/21 11:31 Freq: Status: Active Protocol: Document 01/26/22 11:21 [facility] (Rec: 01/26/22 11:59 [facility] [id number]) Functional Tests 6 Minute Walk Test Distance 576 ft Device Used no device Comments 2 seated rest breaks 30 Second Sit to Stand Test Score 6.5 reps in 30 sec Comments hands across chest, 18 chair Dynamic Gait Index (DGI) Score 20 Five Times Sit to Stand Test Score 22 sec Functional Gait Assessment Score 16/30 PT-OP-G Mobility & Gait Start: 08/18/21 11:31 Freq: Status: Active Protocol: Document 08/19/21 07:38 [facility] (Rec: 08/19/21 10:23 [facility] [id number]) OP Mobility Evaluation Bed Mobility Supine to and from Sit indep Transfers Sit to Stand able to sit to stand indep - chooses to use UEs but can w/o OP Gait Assessment Comments Gait Comments Amb with slow pace and dec push off PT-OP-M Strength Start: 08/18/21 11:31 Freq: Status: Active Protocol: Document 01/26/22 11:21 [facility] (Rec: 01/26/22 11:59 [facility] [id number]) Hip Strength Hip Manual Muscle Testing Right Flexion (L2) 4+ Good+ Extension (S1) 3+ Fair+ Abduction 4- Good- External Rotation 4- Good- Internal Rotation 5 Normal Left Flexion (L2) 4 Good Extension (S1) 3+ Fair+ Abduction 4 Good External Rotation 4 Good Internal Rotation 5 Normal Comments goes into flex B w/abd testing Knee Strength Knee Manual Muscle Testing Right Flexion (S2) 5 Normal Extension (L3) 5 Normal Left Flexion (S2) 5 Normal Extension (L3) 5 Normal Ankle/Foot Strength Ankle and Foot Manual Muscle Testing Right Dorsiflexion (L4) 5 Normal Plantarflexion (S1) 5 Normal Comments PF tested seated Left Dorsiflexion (L4) 4 Good Plantarflexion (S1) 4+ Good+ PT-OP-Q Treatments Start: 08/18/21 11:31 Freq: Status: Active Protocol: Document 03/04/22 12:06 MA (Rec: 03/04/22 12:51 MA [id number]) Cardio Equipment Bicycle (Upright) Duration (Minutes) 6 Resistance 6 Seat Position 8 Therapeutic Exercises Sitting Exercises Knee flex Side bilateral Equipment Used Lvl 3 Reps/Minutes 20 ea knee ext Side bilateral Equipment Used L3 Reps/Minutes 20 ea march Side bilateral Equipment Used L3 Reps/Minutes 30 hip ER Side bilateral Equipment Used L3 Reps/Minutes 30 Standing Exercises march Standing Exercise Name in place Side bilateral Reps/Minutes 40 Comments rail prn sit to stand Side bilateral Reps/Minutes 8x Comments hands across chest Gait Training Gait Activity Gait Device Used None Level of Assistance SBA Surface level Distance/Duration 2 lap around gym, seated rest b/w Treatment Focus increasing step width and length Neuro Re-Education Treatment Balance Activities SLS Details modified SLS Equipment juju disc Reps/Duration 2x90 ea Comments one foot on juju disc other foot on floor for modified SLS PT-OP-T Assessment and Plan Start: 08/18/21 11:31 Freq: Status: Active Protocol: Document 03/04/22 12:06 MA (Rec: 03/04/22 12:51 MA [id number]) Physical Therapy Assessment Goals sit to stand Marine Steam Fitter Goal (LTG) Pt will be able to complete at least 10 sit to stands in 30 sec to show improved strength and funcitonal ability. 11/01-imprvoed to 7 12/13/21: 6.5 reps in 30 sec.( rounds to 7) 3/2-6.5 reps LTG Duration 04/28/22 balance Short Term Goal (STG) Pt will be able to score at least 20/24 on DGI to show dec risk for falls. 11/01-improved to 17 12/13/20: STG Duration achieved 3/2 to 20 Halfway Goal (LTG) Pt will score at least 22/30 to show dec risk for falls on FGA LTG Duration 04/28/22 strength Short Term Goal (STG) Pt will be indep w/HEP STG Duration achieved progresssing as able Halfway Goal (LTG) Pt will score at least 4/5 on all LE MMT to show improved strengtht o improve pt's ability to participate in home activities. 09/27-improving 11/01-improved 3/2-improved limited in ext & ER & abd LTG Duration 04/28/22 walking Short Term Goal (STG) Pt willb e able to complete 2 min walk test w/o requriing seated rest break at least 160ft to show improved activity tolerance. 09/27-pt having difficulty w/ SOB more over past 2 weeks. Has been having testing done to determine reason 10/25-able to do 180ft but could only go 1.5 min 11/01-215ft but still only able to go 1.5 min 12/13/20: completed 206 ft in 2 min using SPC. STG Duration achieved 12/13 Marine Steam Fitter Goal (LTG) Pt will be able to complete 6 min walk test with distance of at least 450ft. 2-achieved to 576ft progress goal to 800ft in 6 min LTG Duration 04/28/22 Assessment Summary Assessment Goldy is able to use upright bike without any difficulty breathing today. He has some SOB after gait exercises and balance work but does well with modified SLS this session and only needs CGA vs occassional Min A when balancing. Physical Therapy Plan Frequency and Duration Frequency of Treatment 1-2x/wk Duration of Treatment 3 months Plan of Care Start Date 01/26/22 Plan of Care End Date 04/28/22 Therapeutic Interventions Therapeutic Interventions Aquatic Therapy,Balance Training,Gait Training,Home Exercise Program,Joint Mobilizations,Manual Therapy, Neuromuscular Re-education, Orthotic/Prosthetic Management ,Patient/Caregiver Education, Self-Care/Home Management,Soft Tissue Mobilization,Taping, Therapeutic Activities, Therapeutic Exercises Modalities Cold Pack/Ice Massage,Electric Stimulation,Hot Packs Next Visit Focus/Plan Next Note Type Treatment Note Next Visit Plan upright bike, continue progressive balance. Alternate between sitting and standing exercises throughout session to increase pt's endurance.
--- NOTE | 2022-03-07 15:16 | PT.OTN ---
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) Muscle weakness (generalized) (03/07/22) Difficulty in walking, not elsewhere classified (03/07/22) Physical Therapy Treatment Note PT-OP-A Visit Information Start: 08/18/21 11:31 Freq: Status: Active Protocol: Document 03/07/22 14:36 [facility] (Rec: 03/07/22 15:16 [facility] [id number]) Out-Patient Physical Therapy Visit Information Visit Information Visit Type Treatment Note Visit Note 05/06 Visit Start Time 14:35 Visit Stop Time 15:15 Total Visit Minutes 40 Visit Number 40 Number of FOOD SAFETY COORDINATOR Visits 0 PT-OP-B Current Condition Start: 08/18/21 11:31 Freq: Status: Active Protocol: Document 08/19/21 07:38 [facility] (Rec: 08/19/21 10:23 [facility] [id number]) Current Condition History of Current Condition Onset Date 1.5 years ago Current Complaints weakness History of Current Condition Pt was diagonosed w/ myelofibrosis which comes w/ low hematocrit and platelets and has slowly dec frequency to 4 weeks ago. He had [employer] shot February 08 and developed Guillian [place] Syndrome symptoms a few weeks later. He got his blood count done and was fine and was severe weakness. Severe weakness in legs and some in arms w/no reflexs and some facilitations whcih he doens't have it any more. He had infusions of immunoglobulin and it seemed to help a bit at first. He has an electric WC coming today that he paid for out of pocket that he plans to use when out of the house. He can recover from activity w/5 -10 min of rest. He has some ankle swelling that started aobut 6 months ago but labs have all been normal for possible CHF. Pt reports he gets SOB and weakness. He has postural hypotension. Pt reports some gradual minor memory loss. Pt has B hip replacement and a microdiscectomy L4-5. No falls . Pt sees Oncology every 3 weeks and gets a subcutaneous shot every 3 weeks which inc red blood cells. Prior to these diagnoses (1.5 years ago ), he was sailing, biking, tennis, hiking and walking. Pt reports he can cut about 3 roses then has to sit down d/t fatigue. His chores are very short. Indep w/ADLs. Can only walk 80ft before he has to rest. Prior Treatments and Tests No PT since all of this started Treatment Goals Patient/Caregiver Goals inc tolerance w/walking, inc endurance, be able to get up/ down from ground w/o outside support PT-OP-C Subjective Start: 08/18/21 11:31 Freq: Status: Active Protocol: Document 03/07/22 14:36 [facility] (Rec: 03/07/22 15:16 [facility] [id number]) OP-PT Subjective Patient Comments Patient Comments Pt reports feeling tired. He hasn't had a transfusion in a month and is due for his infusions. he feels like his balance has gotten better. PT-OP-D Balance Start: 08/18/21 11:31 Freq: Status: Active Protocol: Document 08/19/21 07:38 [facility] (Rec: 08/19/21 10:23 [facility] [id number]) Balance Tests Dunn Balance Test Dunn Balance Test Score 46/56 PT-OP-E Functional Tests Start: 08/18/21 11:31 Freq: Status: Active Protocol: Document 01/26/22 11:21 [facility] (Rec: 01/26/22 11:59 [facility] [id number]) Functional Tests 6 Minute Walk Test Distance 576 ft Device Used no device Comments 2 seated rest breaks 30 Second Sit to Stand Test Score 6.5 reps in 30 sec Comments hands across chest, 18 chair Dynamic Gait Index (DGI) Score 20 Five Times Sit to Stand Test Score 22 sec Functional Gait Assessment Score 16/30 PT-OP-G Mobility & Gait Start: 08/18/21 11:31 Freq: Status: Active Protocol: Document 08/19/21 07:38 [facility] (Rec: 08/19/21 10:23 [facility] [id number]) OP Mobility Evaluation Bed Mobility Supine to and from Sit indep Transfers Sit to Stand able to sit to stand indep - chooses to use UEs but can w/o OP Gait Assessment Comments Gait Comments Amb with slow pace and dec push off PT-OP-M Strength Start: 08/18/21 11:31 Freq: Status: Active Protocol: Document 01/26/22 11:21 [facility] (Rec: 01/26/22 11:59 [facility] [id number]) Hip Strength Hip Manual Muscle Testing Right Flexion (L2) 4+ Good+ Extension (S1) 3+ Fair+ Abduction 4- Good- External Rotation 4- Good- Internal Rotation 5 Normal Left Flexion (L2) 4 Good Extension (S1) 3+ Fair+ Abduction 4 Good External Rotation 4 Good Internal Rotation 5 Normal Comments goes into flex B w/abd testing Knee Strength Knee Manual Muscle Testing Right Flexion (S2) 5 Normal Extension (L3) 5 Normal Left Flexion (S2) 5 Normal Extension (L3) 5 Normal Ankle/Foot Strength Ankle and Foot Manual Muscle Testing Right Dorsiflexion (L4) 5 Normal Plantarflexion (S1) 5 Normal Comments PF tested seated Left Dorsiflexion (L4) 4 Good Plantarflexion (S1) 4+ Good+ PT-OP-Q Treatments Start: 08/18/21 11:31 Freq: Status: Active Protocol: Document 03/07/22 14:36 [facility] (Rec: 03/07/22 15:16 [facility] [id number]) Cardio Equipment Bicycle (Upright) Duration (Minutes) 6 Resistance 6 Seat Position 8 Therapeutic Exercises Sitting Exercises Adduction Sitting Exercise Name Hip Add Side bilateral Equipment Used small ball Reps/Minutes 12x 10SH DF Sitting Exercise Name dorsiflexion/PF Side bilateral Reps/Minutes 30 eax2 Knee flex Side bilateral Equipment Used Lvl 3 Reps/Minutes 20 ea knee ext Side bilateral Equipment Used L3 Reps/Minutes 30 ea march Side bilateral Equipment Used L3 Reps/Minutes 30 hip ER Side bilateral Equipment Used L3 Reps/Minutes 30 Standing Exercises hip abd Standing Exercise Name side step Side bilateral Equipment Used lvl 2 TB Reps/Minutes 20ft ea march Standing Exercise Name in place Side bilateral Reps/Minutes 10 Comments rail prn Neuro Re-Education Treatment Balance Activities SLS Details modified SLS Equipment juju disc Reps/Duration 2x90 ea Comments one foot on juju disc other foot on floor for modified SLS head turns Comments 1. fwd walking down harding- horizontal and vertical 2x50ft ea hurdles Comments 1. 6 hurdles step through fwd gait rail prn x6 2. side step over 6 hurdles- 2x PT-OP-T Assessment and Plan Start: 08/18/21 11:31 Freq: Status: Active Protocol: Document 03/07/22 14:36 [facility] (Rec: 03/07/22 15:16 [facility] [id number]) Physical Therapy Assessment Goals sit to stand Head Setter Goal (LTG) Pt will be able to complete at least 10 sit to stands in 30 sec to show improved strength and funcitonal ability. 11/01-imprvoed to 7 12/13/21: 6.5 reps in 30 sec.( rounds to 7) 3/2-6.5 reps LTG Duration 04/28/22 balance Short Term Goal (STG) Pt will be able to score at least 20/24 on DGI to show dec risk for falls. 11/01-improved to 17 12/13/20: STG Duration achieved 3/2 to 20 Senior Living Goal (LTG) Pt will score at least 22/30 to show dec risk for falls on FGA LTG Duration 04/28/22 strength Short Term Goal (STG) Pt will be indep w/HEP STG Duration achieved progresssing as able Senior Living Goal (LTG) Pt will score at least 4/5 on all LE MMT to show improved strengtht o improve pt's ability to participate in home activities. 09/27-improving 11/01-improved 3/2-improved limited in ext & ER & abd LTG Duration 04/28/22 walking Short Term Goal (STG) Pt willb e able to complete 2 min walk test w/o requriing seated rest break at least 160ft to show improved activity tolerance. 09/27-pt having difficulty w/ SOB more over past 2 weeks. Has been having testing done to determine reason 10/25-able to do 180ft but could only go 1.5 min 11/01-215ft but still only able to go 1.5 min 12/13/20: completed 206 ft in 2 min using SPC. STG Duration achieved 12/13 Senior Living Goal (LTG) Pt will be able to complete 6 min walk test with distance of at least 450ft. 01/26-achieved to 576ft progress goal to 800ft in 6 min LTG Duration 04/28/22 Assessment Summary Assessment Pt did well with exercises and tolerated well with transition between seated and standing exercises and didn't require long rest breaks between this. PT cont to express concerns re: pt riding bike at home outside. Physical Therapy Plan Frequency and Duration Frequency of Treatment 1-2x/wk Duration of Treatment 3 months Plan of Care Start Date 01/26/22 Plan of Care End Date 04/28/22 Next Visit Focus/Plan Next Note Type Treatment Note Next Visit Plan upright bike, continue progressive balance. Alternate between sitting and standing exercises throughout session to increase pt's endurance.
--- NOTE | 2022-03-14 11:45 | PT.OTN ---
Current Diagnoses Guillain-[place] syndrome (03/14/22) Muscle weakness (generalized) (03/14/22) Difficulty in walking, not elsewhere classified (03/14/22) Physical Therapy Treatment Note PT-OP-A Visit Information Start: 08/18/21 11:31 Freq: Status: Active Protocol: Document 03/14/22 11:05 [facility] (Rec: 03/14/22 11:45 [facility] [id number]) Out-Patient Physical Therapy Visit Information Visit Information Visit Type Treatment Note Visit Note 06/05 Visit Start Time 11:00 Visit Stop Time 11:41 Total Visit Minutes 41 Visit Number 41 Number of ENGINE PILOT Visits 1 PT-OP-B Current Condition Start: 08/18/21 11:31 Freq: Status: Active Protocol: Document 08/19/21 07:38 [facility] (Rec: 08/19/21 10:23 [facility] [id number]) Current Condition History of Current Condition Onset Date 1.5 years ago Current Complaints weakness History of Current Condition Pt was diagonosed w/ myelofibrosis which comes w/ low hematocrit and platelets and has slowly dec frequency to 4 weeks ago. He had [employer] shot February 08 and developed Guillian [place] Syndrome symptoms a few weeks later. He got his blood count done and was fine and was severe weakness. Severe weakness in legs and some in arms w/no reflexs and some facilitations whcih he doens't have it any more. He had infusions of immunoglobulin and it seemed to help a bit at first. He has an electric WC coming today that he paid for out of pocket that he plans to use when out of the house. He can recover from activity w/5 -10 min of rest. He has some ankle swelling that started aobut 6 months ago but labs have all been normal for possible CHF. Pt reports he gets SOB and weakness. He has postural hypotension. Pt reports some gradual minor memory loss. Pt has B hip replacement and a microdiscectomy L4-5. No falls . Pt sees Oncology every 3 weeks and gets a subcutaneous shot every 3 weeks which inc red blood cells. Prior to these diagnoses (1.5 years ago ), he was sailing, biking, tennis, hiking and walking. Pt reports he can cut about 3 roses then has to sit down d/t fatigue. His chores are very short. Indep w/ADLs. Can only walk 80ft before he has to rest. Prior Treatments and Tests No PT since all of this started Treatment Goals Patient/Caregiver Goals inc tolerance w/walking, inc endurance, be able to get up/ down from ground w/o outside support PT-OP-C Subjective Start: 08/18/21 11:31 Freq: Status: Active Protocol: Document 03/14/22 11:05 [facility] (Rec: 03/14/22 11:45 [facility] [id number]) OP-PT Subjective Patient Comments Patient Comments Pt had COVID booster and has been very lightheaded and dizzy since. If he looks up or turns his head laterally he reports dizziness. PT-OP-D Balance Start: 08/18/21 11:31 Freq: Status: Active Protocol: Document 08/19/21 07:38 [facility] (Rec: 08/19/21 10:23 [facility] [id number]) Balance Tests Dunn Balance Test Dunn Balance Test Score 46/56 PT-OP-E Functional Tests Start: 08/18/21 11:31 Freq: Status: Active Protocol: Document 01/26/22 11:21 [facility] (Rec: 01/26/22 11:59 [facility] [id number]) Functional Tests 6 Minute Walk Test Distance 576 ft Device Used no device Comments 2 seated rest breaks 30 Second Sit to Stand Test Score 6.5 reps in 30 sec Comments hands across chest, 18 chair Dynamic Gait Index (DGI) Score 20 Five Times Sit to Stand Test Score 22 sec Functional Gait Assessment Score 16/30 PT-OP-G Mobility & Gait Start: 08/18/21 11:31 Freq: Status: Active Protocol: Document 08/19/21 07:38 [facility] (Rec: 08/19/21 10:23 [facility] [id number]) OP Mobility Evaluation Bed Mobility Supine to and from Sit indep Transfers Sit to Stand able to sit to stand indep - chooses to use UEs but can w/o OP Gait Assessment Comments Gait Comments Amb with slow pace and dec push off PT-OP-M Strength Start: 08/18/21 11:31 Freq: Status: Active Protocol: Document 01/26/22 11:21 [facility] (Rec: 01/26/22 11:59 [facility] [id number]) Hip Strength Hip Manual Muscle Testing Right Flexion (L2) 4+ Good+ Extension (S1) 3+ Fair+ Abduction 4- Good- External Rotation 4- Good- Internal Rotation 5 Normal Left Flexion (L2) 4 Good Extension (S1) 3+ Fair+ Abduction 4 Good External Rotation 4 Good Internal Rotation 5 Normal Comments goes into flex B w/abd testing Knee Strength Knee Manual Muscle Testing Right Flexion (S2) 5 Normal Extension (L3) 5 Normal Left Flexion (S2) 5 Normal Extension (L3) 5 Normal Ankle/Foot Strength Ankle and Foot Manual Muscle Testing Right Dorsiflexion (L4) 5 Normal Plantarflexion (S1) 5 Normal Comments PF tested seated Left Dorsiflexion (L4) 4 Good Plantarflexion (S1) 4+ Good+ PT-OP-Q Treatments Start: 08/18/21 11:31 Freq: Status: Active Protocol: Document 03/14/22 11:05 [facility] (Rec: 03/14/22 11:45 [facility] [id number]) Cardio Equipment Recumbent Bicycle Duration (Minutes) 6 Resistance 6 Seat Position 11 Therapeutic Exercises Sitting Exercises DF Sitting Exercise Name dorsiflexion/PF Side bilateral Reps/Minutes 30 eax2 Knee flex Side bilateral Equipment Used Lvl 3 Reps/Minutes 20 ea knee ext Side bilateral Equipment Used L3 Reps/Minutes 20 ea march Side bilateral Equipment Used L3 Reps/Minutes 30 hip ER Side bilateral Equipment Used L3 Reps/Minutes 30 Standing Exercises heel raises Standing Exercise Name heel raises Side bilateral Reps/Minutes x20 Comments first 10 with rail, second set without rail january Standing Exercise Name in place Side bilateral Reps/Minutes 2x20 Comments second set on blue foam- 10 w/ rail, 10 no rail CGA sit to stand Side bilateral Reps/Minutes x10 Comments hands across chest Neuro Re-Education Treatment Balance Activities hurdles Comments 1. 6 hurdles step through fwd gait rail prn x6 2. side step over 1 amandeep 10x PT-OP-T Assessment and Plan Start: 08/18/21 11:31 Freq: Status: Active Protocol: Document 03/14/22 11:05 [facility] (Rec: 03/14/22 11:45 [facility] [id number]) Physical Therapy Assessment Goals sit to stand Fence Erector Supervisor Goal (LTG) Pt will be able to complete at least 10 sit to stands in 30 sec to show improved strength and funcitonal ability. 12/6-imprvoed to 7 12/13/21: 6.5 reps in 30 sec.( rounds to 7) 3/2-6.5 reps LTG Duration 04/28/22 balance Short Term Goal (STG) Pt will be able to score at least 20/24 on DGI to show dec risk for falls. 11/01-improved to 17 12/13/20: STG Duration achieved 3/2 to 20 Fence Erector Supervisor Goal (LTG) Pt will score at least 22/30 to show dec risk for falls on FGA LTG Duration 04/28/22 strength Short Term Goal (STG) Pt will be indep w/HEP STG Duration achieved progresssing as able Detention Goal (LTG) Pt will score at least 4/5 on all LE MMT to show improved strengtht o improve pt's ability to participate in home activities. 09/27-improving 11/01-improved 3/2-improved limited in ext & ER & abd LTG Duration 04/28/22 walking Short Term Goal (STG) Pt willb e able to complete 2 min walk test w/o requriing seated rest break at least 160ft to show improved activity tolerance. 09/27-pt having difficulty w/ SOB more over past 2 weeks. Has been having testing done to determine reason 10/25-able to do 180ft but could only go 1.5 min 11/01-215ft but still only able to go 1.5 min 12/13/20: completed 206 ft in 2 min using SPC. STG Duration achieved 12/13 Fence Erector Supervisor Goal (LTG) Pt will be able to complete 6 min walk test with distance of at least 450ft. /2-achieved to 576ft progress goal to 800ft in 6 min LTG Duration 04/28/22 Assessment Summary Assessment Goldy arrived with c/o dizziness this morning, therefore, started on recumbant bike vs upright bike today. After biking, pt's BP was 145/86 and HR was 97 BPM. At end of session, after 2 min rest break, pt's BP was 137/ 78 with HR of 94 BPM. Pt had no dizziness throughout session. He continues to be challenged by balance exercises but does well alternating between seated and standing exercises. Physical Therapy Plan Frequency and Duration Frequency of Treatment 1-2x/wk Duration of Treatment 3 months Plan of Care Start Date 01/26/22 Plan of Care End Date 04/28/22 Therapeutic Interventions Therapeutic Interventions Aquatic Therapy,Balance Training,Gait Training,Home Exercise Program,Joint Mobilizations,Manual Therapy, Neuromuscular Re-education, Orthotic/Prosthetic Management ,Patient/Caregiver Education, Self-Care/Home Management,Soft Tissue Mobilization,Taping, Therapeutic Activities, Therapeutic Exercises Modalities Cold Pack/Ice Massage,Electric Stimulation,Hot Packs Next Visit Focus/Plan Next Note Type Treatment Note Next Visit Plan upright bike, continue progressive balance. Alternate between sitting and standing exercises throughout session to increase pt's endurance.
--- NOTE | 2022-03-21 11:52 | PT.OTN ---
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) Muscle weakness (generalized) (03/21/22) Difficulty in walking, not elsewhere classified (03/21/22) Physical Therapy Treatment Note PT-OP-A Visit Information Start: 08/18/21 11:31 Freq: Status: Active Protocol: Document 03/21/22 11:09 MA (Rec: 03/21/22 11:52 MA [id number]) Out-Patient Physical Therapy Visit Information Visit Information Visit Type Treatment Note Visit Note 07/06 Visit Start Time 11:05 Visit Stop Time 11:45 Total Visit Minutes 40 Visit Number 42 Number of OVERLAY PLASTICIAN Visits 2 PT-OP-B Current Condition Start: 08/18/21 11:31 Freq: Status: Active Protocol: Document 08/19/21 07:38 [facility] (Rec: 08/19/21 10:23 [facility] [id number]) Current Condition History of Current Condition Onset Date 1.5 years ago Current Complaints weakness History of Current Condition Pt was diagonosed w/ myelofibrosis which comes w/ low hematocrit and platelets and has slowly dec frequency to 4 weeks ago. He had [employer] shot February 08 and developed Guillian Brandenburg Syndrome symptoms a few weeks later. He got his blood count done and was fine and was severe weakness. Severe weakness in legs and some in arms w/no reflexs and some facilitations whcih he doens't have it any more. He had infusions of immunoglobulin and it seemed to help a bit at first. He has an electric WC coming today that he paid for out of pocket that he plans to use when out of the house. He can recover from activity w/5 -10 min of rest. He has some ankle swelling that started aobut 6 months ago but labs have all been normal for possible CHF. Pt reports he gets SOB and weakness. He has postural hypotension. Pt reports some gradual minor memory loss. Pt has B hip replacement and a microdiscectomy L4-5. No falls . Pt sees Oncology every 3 weeks and gets a subcutaneous shot every 3 weeks which inc red blood cells. Prior to these diagnoses (1.5 years ago ), he was sailing, biking, tennis, hiking and walking. Pt reports he can cut about 3 roses then has to sit down d/t fatigue. His chores are very short. Indep w/ADLs. Can only walk 80ft before he has to rest. Prior Treatments and Tests No PT since all of this started Treatment Goals Patient/Caregiver Goals inc tolerance w/walking, inc endurance, be able to get up/ down from ground w/o outside support PT-OP-C Subjective Start: 08/18/21 11:31 Freq: Status: Active Protocol: Document 03/21/22 11:09 MA (Rec: 03/21/22 11:52 MA [id number]) OP-PT Subjective Patient Comments Patient Comments Pt still have vertigo if he bends over to pick something up. They increased his immunoglobulin and he is worried the increase could cause clots. PT-OP-D Balance Start: 08/18/21 11:31 Freq: Status: Active Protocol: Document 08/19/21 07:38 [facility] (Rec: 08/19/21 10:23 [facility] [id number]) Balance Tests Dunn Balance Test Dunn Balance Test Score 46/56 PT-OP-E Functional Tests Start: 08/18/21 11:31 Freq: Status: Active Protocol: Document 01/26/22 11:21 [facility] (Rec: 01/26/22 11:59 [facility] [id number]) Functional Tests 6 Minute Walk Test Distance 576 ft Device Used no device Comments 2 seated rest breaks 30 Second Sit to Stand Test Score 6.5 reps in 30 sec Comments hands across chest, 18 chair Dynamic Gait Index (DGI) Score 20 Five Times Sit to Stand Test Score 22 sec Functional Gait Assessment Score 16/30 PT-OP-G Mobility & Gait Start: 08/18/21 11:31 Freq: Status: Active Protocol: Document 08/19/21 07:38 [facility] (Rec: 08/19/21 10:23 [facility] [id number]) OP Mobility Evaluation Bed Mobility Supine to and from Sit indep Transfers Sit to Stand able to sit to stand indep - chooses to use UEs but can w/o OP Gait Assessment Comments Gait Comments Amb with slow pace and dec push off PT-OP-M Strength Start: 08/18/21 11:31 Freq: Status: Active Protocol: Document 01/26/22 11:21 [facility] (Rec: 01/26/22 11:59 [facility] [id number]) Hip Strength Hip Manual Muscle Testing Right Flexion (L2) 4+ Good+ Extension (S1) 3+ Fair+ Abduction 4- Good- External Rotation 4- Good- Internal Rotation 5 Normal Left Flexion (L2) 4 Good Extension (S1) 3+ Fair+ Abduction 4 Good External Rotation 4 Good Internal Rotation 5 Normal Comments goes into flex B w/abd testing Knee Strength Knee Manual Muscle Testing Right Flexion (S2) 5 Normal Extension (L3) 5 Normal Left Flexion (S2) 5 Normal Extension (L3) 5 Normal Ankle/Foot Strength Ankle and Foot Manual Muscle Testing Right Dorsiflexion (L4) 5 Normal Plantarflexion (S1) 5 Normal Comments PF tested seated Left Dorsiflexion (L4) 4 Good Plantarflexion (S1) 4+ Good+ PT-OP-Q Treatments Start: 08/18/21 11:31 Freq: Status: Active Protocol: Document 03/21/22 11:09 MA (Rec: 03/21/22 11:52 MA [id number]) Cardio Equipment Bicycle (Upright) Duration (Minutes) 8 Resistance 6 Seat Position 8 Therapeutic Exercises Sitting Exercises DF Sitting Exercise Name dorsiflexion/PF Side bilateral Reps/Minutes 30 eax2 march Side bilateral Equipment Used L3 Reps/Minutes 30 hip ER Side bilateral Equipment Used L3 Reps/Minutes 30 Standing Exercises step up Side bilateral Equipment Used 5 step Reps/Minutes x15 ea Comments no rails sit to stand Side bilateral Reps/Minutes x10 Comments hands across chest Neuro Re-Education Treatment Balance Activities hurdles Comments 1. fwd 3 laps: hurdles, 6 step, and foam pads 2. lateral: hurdles with foam pads b/w 3 of the hurdles PT-OP-T Assessment and Plan Start: 08/18/21 11:31 Freq: Status: Active Protocol: Document 03/21/22 11:09 MA (Rec: 03/21/22 11:52 MA [id number]) Physical Therapy Assessment Goals sit to stand Roller Man Goal (LTG) Pt will be able to complete at least 10 sit to stands in 30 sec to show improved strength and funcitonal ability. 11/01-imprvoed to 12/13/21: 6.5 reps in 30 sec.( rounds to 7) 3/2-6.5 reps LTG Duration 04/28/22 balance Short Term Goal (STG) Pt will be able to score at least 20/24 on DGI to show dec risk for falls. 12/6-improved to 17 12/13/20: STG Duration achieved 3/2 to 20 Nursing Home Goal (LTG) Pt will score at least 22/30 to show dec risk for falls on FGA LTG Duration 04/28/22 strength Short Term Goal (STG) Pt will be indep w/HEP STG Duration achieved progresssing as able Nursing Home Goal (LTG) Pt will score at least 4/5 on all LE MMT to show improved strengtht o improve pt's ability to participate in home activities. 09/27-improving 11/01-improved 3/2-improved limited in ext & ER & abd LTG Duration 04/28/22 walking Short Term Goal (STG) Pt willb e able to complete 2 min walk test w/o requriing seated rest break at least 160ft to show improved activity tolerance. 09/27-pt having difficulty w/ SOB more over past 2 weeks. Has been having testing done to determine reason 10/25-able to do 180ft but could only go 1.5 min 11/01-215ft but still only able to go 1.5 min 12/13/20: completed 206 ft in 2 min using SPC. STG Duration achieved 12/13 Roller Man Goal (LTG) Pt will be able to complete 6 min walk test with distance of at least 450ft. 2-achieved to 576ft progress goal to 800ft in 6 min LTG Duration 04/28/22 Assessment Summary Assessment Pt has very little shortness of breath compared to past sessions and has no dizziness. He has difficutly with step ups due to pain in L knee this session. Goldy is challenged by obstacle course with pads and 6 step with hurdles but is able to complete 1x without touching rail. Discussed having pt's spouse join a session to see the exercises Goldy does and keep pt motivated at home as pt has not been keeping up with HEP on his own and thinks it would help if his partner was involved. Physical Therapy Plan Frequency and Duration Frequency of Treatment 1-2x/wk Duration of Treatment 3 months Plan of Care Start Date 01/26/22 Plan of Care End Date 04/28/22 Therapeutic Interventions Therapeutic Interventions Aquatic Therapy,Balance Training,Gait Training,Home Exercise Program,Joint Mobilizations,Manual Therapy, Neuromuscular Re-education, Orthotic/Prosthetic Management ,Patient/Caregiver Education, Self-Care/Home Management,Soft Tissue Mobilization,Taping, Therapeutic Activities, Therapeutic Exercises Modalities Cold Pack/Ice Massage,Electric Stimulation,Hot Packs Next Visit Focus/Plan Next Note Type Treatment Note Next Visit Plan upright bike, continue progressive balance. Alternate between sitting and standing exercises throughout session to increase pt's endurance.
--- NOTE | 2022-03-24 11:15 | PT.OTN ---
Current Diagnoses Guillain-Marble syndrome (03/24/22) Muscle weakness (generalized) (03/24/22) Difficulty in walking, not elsewhere classified (03/24/22) Physical Therapy Treatment Note PT-OP-A Visit Information Start: 08/18/21 11:31 Freq: Status: Active Protocol: Document 03/24/22 10:33 [facility] (Rec: 03/24/22 11:14 [facility] [id number]) Out-Patient Physical Therapy Visit Information Visit Information Visit Type Progress Note Visit Note 12/06 Visit Start Time 10:33 Visit Stop Time 11:15 Total Visit Minutes 42 Visit Number 43 Number of AQUATIC SCIENTIST Visits 0 PT-OP-B Current Condition Start: 08/18/21 11:31 Freq: Status: Active Protocol: Document 08/19/21 07:38 [facility] (Rec: 08/19/21 10:23 [facility] [id number]) Current Condition History of Current Condition Onset Date 1.5 years ago Current Complaints weakness History of Current Condition Pt was diagonosed w/ myelofibrosis which comes w/ low hematocrit and platelets and has slowly dec frequency to 4 weeks ago. He had [employer] shot February 08 and developed Guillian Marble Syndrome symptoms a few weeks later. He got his blood count done and was fine and was severe weakness. Severe weakness in legs and some in arms w/no reflexs and some facilitations whcih he doens't have it any more. He had infusions of immunoglobulin and it seemed to help a bit at first. He has an electric WC coming today that he paid for out of pocket that he plans to use when out of the house. He can recover from activity w/5 -10 min of rest. He has some ankle swelling that started aobut 6 months ago but labs have all been normal for possible CHF. Pt reports he gets SOB and weakness. He has postural hypotension. Pt reports some gradual minor memory loss. Pt has B hip replacement and a microdiscectomy L4-5. No falls . Pt sees Oncology every 3 weeks and gets a subcutaneous shot every 3 weeks which inc red blood cells. Prior to these diagnoses (1.5 years ago ), he was sailing, biking, tennis, hiking and walking. Pt reports he can cut about 3 roses then has to sit down d/t fatigue. His chores are very short. Indep w/ADLs. Can only walk 80ft before he has to rest. Prior Treatments and Tests No PT since all of this started Treatment Goals Patient/Caregiver Goals inc tolerance w/walking, inc endurance, be able to get up/ down from ground w/o outside support PT-OP-C Subjective Start: 08/18/21 11:31 Freq: Status: Active Protocol: Document 03/24/22 10:33 [facility] (Rec: 03/24/22 11:14 [facility] [id number]) OP-PT Subjective Patient Comments Patient Comments Pt reports he feels like his vertigo is better. He is doing more in his garden and more around the house and continues to improve. PT-OP-D Balance Start: 08/18/21 11:31 Freq: Status: Active Protocol: Document 08/19/21 07:38 [facility] (Rec: 08/19/21 10:23 [facility] [id number]) Balance Tests Dunn Balance Test Dunn Balance Test Score 46/56 PT-OP-E Functional Tests Start: 08/18/21 11:31 Freq: Status: Active Protocol: Document 03/24/22 10:33 [facility] (Rec: 03/24/22 11:14 [facility] [id number]) Functional Tests 6 Minute Walk Test Distance 705ft Device Used none Comments 4min 30 Second Sit to Stand Test Score 7 reps in 30 sec Comments hands across chest, 18 chair Dynamic Gait Index (DGI) Score 22/24 Five Times Sit to Stand Test Score 22.5 sec Functional Gait Assessment Score 20/30 PT-OP-G Mobility & Gait Start: 08/18/21 11:31 Freq: Status: Active Protocol: Document 08/19/21 07:38 [facility] (Rec: 08/19/21 10:23 [facility] [id number]) OP Mobility Evaluation Bed Mobility Supine to and from Sit indep Transfers Sit to Stand able to sit to stand indep - chooses to use UEs but can w/o OP Gait Assessment Comments Gait Comments Amb with slow pace and dec push off PT-OP-M Strength Start: 08/18/21 11:31 Freq: Status: Active Protocol: Document 03/24/22 10:33 [facility] (Rec: 03/24/22 11:14 [facility] [id number]) Hip Strength Hip Manual Muscle Testing Right Flexion (L2) 5 Normal Extension (S1) 3+ Fair+ Abduction 4 Good External Rotation 4- Good- Internal Rotation 5 Normal Left Flexion (L2) 4+ Good+ Extension (S1) 3+ Fair+ Abduction 4 Good External Rotation 4 Good Internal Rotation 5 Normal Comments if cued can do pure abd Knee Strength Knee Manual Muscle Testing Right Flexion (S2) 5 Normal Extension (L3) 5 Normal Left Flexion (S2) 5 Normal Extension (L3) 5 Normal Ankle/Foot Strength Ankle and Foot Manual Muscle Testing Right Dorsiflexion (L4) 5 Normal Plantarflexion (S1) 5 Normal Comments PF tested seated B Left Dorsiflexion (L4) 4+ Good+ Plantarflexion (S1) 4+ Good+ PT-OP-Q Treatments Start: 08/18/21 11:31 Freq: Status: Active Protocol: Document 03/24/22 10:33 [facility] (Rec: 03/24/22 11:14 [facility] [id number]) Gym Equipment Shuttle Recovery Bilateral Squats Resistance 112# Shuttle Recovery Platform Stable Reps/Time 2x10 Neuro Re-Education Treatment Balance Activities carcioca Details rail prn Reps/Duration 2x20 ft Comments CGA PT-OP-T Assessment and Plan Start: 08/18/21 11:31 Freq: Status: Active Protocol: Document 03/24/22 10:33 [facility] (Rec: 03/24/22 11:14 [facility] [id number]) Physical Therapy Assessment Goals sit to stand Half-Way Goal (LTG) Pt will be able to complete at least 10 sit to stands in 30 sec to show improved strength and funcitonal ability. 11/01-imprvoed to 7 12/13/21: 6.5 reps in 30 sec.( rounds to 7) 01/26-6.5 reps 03/24-7 reps LTG Duration 04/28/22 balance Short Term Goal (STG) Pt will be able to score at least 20/24 on DGI to show dec risk for falls. 11/01-improved to 17 12/13/20: 1724 STG Duration achieved 3/2 to 20 Half-Way Goal (LTG) Pt will score at least 22/30 to show dec risk for falls on FGA 03/24-DGI ; FGA / LTG Duration 04/28/22 strength Short Term Goal (STG) Pt will be indep w/HEP STG Duration achieved progresssing as able Half-Way Goal (LTG) Pt will score at least 4/5 on all LE MMT to show improved strengtht o improve pt's ability to participate in home activities. 09/27-improving 11/01-improved 3-improved limited in ext & ER & abd 03/24-improving LTG Duration 04/28/22 walking Short Term Goal (STG) Pt willb e able to complete 2 min walk test w/o requriing seated rest break at least 160ft to show improved activity tolerance. 09/27-pt having difficulty w/ SOB more over past 2 weeks. Has been having testing done to determine reason 10/25-able to do 180ft but could only go 1.5 min 11/01-215ft but still only able to go 1.5 min 12/13/20: completed 206 ft in 2 min using SPC. STG Duration achieved 12/13 Stranding Supervisor Goal (LTG) Pt will be able to complete 6 min walk test with distance of at least 450ft. 01/26-achieved to 576ft progress goal to 800ft in 6 min 03/24-705ft w/able to walk 4 min before 1 min break then walking last min LTG Duration 04/28/22 Assessment Summary Assessment Pt is making good progress with activity tolerance and he is advancing well with balance and showing more stability w/stepping over higher objects and w/head turns. Cont PT to cont to advance balance and strength and progress pt back to more home activities. Physical Therapy Plan Frequency and Duration Frequency of Treatment 1-2x/wk Duration of Treatment 3 months Plan of Care Start Date 01/26/22 Plan of Care End Date 04/28/22 Therapeutic Interventions Therapeutic Interventions Aquatic Therapy,Balance Training,Gait Training,Home Exercise Program,Joint Mobilizations,Manual Therapy, Neuromuscular Re-education, Orthotic/Prosthetic Management ,Patient/Caregiver Education, Self-Care/Home Management,Soft Tissue Mobilization,Taping, Therapeutic Activities, Therapeutic Exercises Modalities Cold Pack/Ice Massage,Electric Stimulation,Hot Packs Next Visit Focus/Plan Next Note Type Treatment Note Next Visit Plan upright bike, continue progressive balance. Alternate between sitting and standing exercises throughout session to increase pt's endurance.
--- NOTE | 2022-03-30 11:00 | PT.OTN ---
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) Muscle weakness (generalized) (03/30/22) Difficulty in walking, not elsewhere classified (03/30/22) Physical Therapy Treatment Note PT-OP-A Visit Information Start: 08/18/21 11:31 Freq: Status: Active Protocol: Document 03/30/22 10:15 MA (Rec: 03/30/22 11:00 MA [id number]) Out-Patient Physical Therapy Visit Information Visit Information Visit Type Treatment Note Visit Note 01/06 Visit Start Time 10:15 Visit Stop Time 10:55 Total Visit Minutes 40 Visit Number 44 Number of MACHINING DEPARTMENT SUPERVISOR Visits 1 PT-OP-B Current Condition Start: 08/18/21 11:31 Freq: Status: Active Protocol: Document 08/19/21 07:38 [facility] (Rec: 08/19/21 10:23 [facility] [id number]) Current Condition History of Current Condition Onset Date 1.5 years ago Current Complaints weakness History of Current Condition Pt was diagonosed w/ myelofibrosis which comes w/ low hematocrit and platelets and has slowly dec frequency to 4 weeks ago. He had [employer] shot February 08 and developed Guillian [place] Syndrome symptoms a few weeks later. He got his blood count done and was fine and was severe weakness. Severe weakness in legs and some in arms w/no reflexs and some facilitations whcih he doens't have it any more. He had infusions of immunoglobulin and it seemed to help a bit at first. He has an electric WC coming today that he paid for out of pocket that he plans to use when out of the house. He can recover from activity w/5 -10 min of rest. He has some ankle swelling that started aobut 6 months ago but labs have all been normal for possible CHF. Pt reports he gets SOB and weakness. He has postural hypotension. Pt reports some gradual minor memory loss. Pt has B hip replacement and a microdiscectomy L4-5. No falls . Pt sees Oncology every 3 weeks and gets a subcutaneous shot every 3 weeks which inc red blood cells. Prior to these diagnoses (1.5 years ago ), he was sailing, biking, tennis, hiking and walking. Pt reports he can cut about 3 roses then has to sit down d/t fatigue. His chores are very short. Indep w/ADLs. Can only walk 80ft before he has to rest. Prior Treatments and Tests No PT since all of this started Treatment Goals Patient/Caregiver Goals inc tolerance w/walking, inc endurance, be able to get up/ down from ground w/o outside support PT-OP-C Subjective Start: 08/18/21 11:31 Freq: Status: Active Protocol: Document 03/30/22 10:15 MA (Rec: 03/30/22 11:00 MA [id number]) OP-PT Subjective Patient Comments Patient Comments Pt reports having a dr appt yesterday and he has lost another 5 pounds. He is depressed over this news and has been having bad vertigo the last two days everytime he stands up. PT-OP-D Balance Start: 08/18/21 11:31 Freq: Status: Active Protocol: Document 08/19/21 07:38 [facility] (Rec: 08/19/21 10:23 [facility] [id number]) Balance Tests Dunn Balance Test Dunn Balance Test Score 46/56 PT-OP-E Functional Tests Start: 08/18/21 11:31 Freq: Status: Active Protocol: Document 03/24/22 10:33 [facility] (Rec: 03/24/22 11:14 [facility] [id number]) Functional Tests 6 Minute Walk Test Distance 705ft Device Used none Comments 4min 30 Second Sit to Stand Test Score 7 reps in 30 sec Comments hands across chest, 18 chair Dynamic Gait Index (DGI) Score 22/24 Five Times Sit to Stand Test Score 22.5 sec Functional Gait Assessment Score 20/30 PT-OP-G Mobility & Gait Start: 08/18/21 11:31 Freq: Status: Active Protocol: Document 08/19/21 07:38 [facility] (Rec: 08/19/21 10:23 [facility] [id number]) OP Mobility Evaluation Bed Mobility Supine to and from Sit indep Transfers Sit to Stand able to sit to stand indep - chooses to use UEs but can w/o OP Gait Assessment Comments Gait Comments Amb with slow pace and dec push off PT-OP-M Strength Start: 08/18/21 11:31 Freq: Status: Active Protocol: Document 03/24/22 10:33 [facility] (Rec: 03/24/22 11:14 [facility] [id number]) Hip Strength Hip Manual Muscle Testing Right Flexion (L2) 5 Normal Extension (S1) 3+ Fair+ Abduction 4 Good External Rotation 4- Good- Internal Rotation 5 Normal Left Flexion (L2) 4+ Good+ Extension (S1) 3+ Fair+ Abduction 4 Good External Rotation 4 Good Internal Rotation 5 Normal Comments if cued can do pure abd Knee Strength Knee Manual Muscle Testing Right Flexion (S2) 5 Normal Extension (L3) 5 Normal Left Flexion (S2) 5 Normal Extension (L3) 5 Normal Ankle/Foot Strength Ankle and Foot Manual Muscle Testing Right Dorsiflexion (L4) 5 Normal Plantarflexion (S1) 5 Normal Comments PF tested seated B Left Dorsiflexion (L4) 4+ Good+ Plantarflexion (S1) 4+ Good+ PT-OP-Q Treatments Start: 08/18/21 11:31 Freq: Status: Active Protocol: Document 03/30/22 10:15 MA (Rec: 03/30/22 11:00 MA [id number]) Cardio Equipment Recumbent Bicycle Duration (Minutes) 8 Resistance 7-9 Seat Position 10 Therapeutic Exercises Sitting Exercises DF Sitting Exercise Name 1. dorsiflexion/PF 2. DF with lvl 1 TB Side bilateral Reps/Minutes 30 eax2 Knee flex Side bilateral Equipment Used Lvl 3 Reps/Minutes 20 ea knee ext Side bilateral Equipment Used L3 Reps/Minutes 20 ea march Side bilateral Equipment Used L3 Reps/Minutes 30 hip ER Side bilateral Equipment Used L3 Reps/Minutes 30 Standing Exercises heel raises Standing Exercise Name heel raises Side bilateral Reps/Minutes x20 Comments rail prn step up Side bilateral Equipment Used 6 step Reps/Minutes x10 ea Comments single rail hip abd Standing Exercise Name side step Side bilateral Equipment Used lvl 3 TB Reps/Minutes 20ft ea sit to stand Side bilateral Reps/Minutes x10 Comments hands across chest Other Exercises 2 min walk test Other Exercise Name 1 lap walking around gym Neuro Re-Education Treatment Balance Activities Taps Details alt toe taps on 3 board Reps/Duration 20x Comments no rail rocker board Equipment rocker board Comments EO/EC trials PT-OP-T Assessment and Plan Start: 08/18/21 11:31 Freq: Status: Active Protocol: Document 03/30/22 10:15 MA (Rec: 03/30/22 11:00 MA [id number]) Physical Therapy Assessment Goals sit to stand Bundle Clerk Goal (LTG) Pt will be able to complete at least 10 sit to stands in 30 sec to show improved strength and funcitonal ability. 11/01-imprvoed to 7 12/13/21: 6.5 reps in 30 sec.( rounds to 7) 01/26-6.5 reps 03/24-7 reps LTG Duration 04/28/22 balance Short Term Goal (STG) Pt will be able to score at least 20/24 on DGI to show dec risk for falls. 11/01-improved to 17 12/13/20: STG Duration achieved 3/2 to 20 Senior Living Goal (LTG) Pt will score at least 22/30 to show dec risk for falls on FGA 03/24-DGI ; FGA LTG Duration 04/28/22 strength Short Term Goal (STG) Pt will be indep w/HEP STG Duration achieved progresssing as able Senior Living Goal (LTG) Pt will score at least 4/5 on all LE MMT to show improved strengtht o improve pt's ability to participate in home activities. 09/27-improving 11/01-improved 3-improved limited in ext & ER & abd 03/24-improving LTG Duration 04/28/22 walking Short Term Goal (STG) Pt willb e able to complete 2 min walk test w/o requriing seated rest break at least 160ft to show improved activity tolerance. 09/27-pt having difficulty w/ SOB more over past 2 weeks. Has been having testing done to determine reason 10/25-able to do 180ft but could only go 1.5 min 11/01-215ft but still only able to go 1.5 min 12/13/20: completed 206 ft in 2 min using SPC. STG Duration achieved 12/13 Senior Living Goal (LTG) Pt will be able to complete 6 min walk test with distance of at least 450ft. 2-achieved to 576ft progress goal to 800ft in 6 min 03/24-705ft w/able to walk 4 min before 1 min break then walking last min LTG Duration 04/28/22 Assessment Summary Assessment Pt arrvies with some vertigo and requests recumbant bike vs upright bike this session due to dizziness. After warming up on bike, pt does well with step ups and toe taps without holding rail. Pt continues to require CGA during exercises involving balance. He is min A for balance on balance board when eyes are closed, requiring more assist when standing lateral on board vs fwd. Physical Therapy Plan Frequency and Duration Frequency of Treatment 1-2x/wk Duration of Treatment 3 months Plan of Care Start Date 01/26/22 Plan of Care End Date 04/28/22 Therapeutic Interventions Therapeutic Interventions Aquatic Therapy,Balance Training,Gait Training,Home Exercise Program,Joint Mobilizations,Manual Therapy, Neuromuscular Re-education, Orthotic/Prosthetic Management ,Patient/Caregiver Education, Self-Care/Home Management,Soft Tissue Mobilization,Taping, Therapeutic Activities, Therapeutic Exercises Modalities Cold Pack/Ice Massage,Electric Stimulation,Hot Packs Next Visit Focus/Plan Next Note Type Treatment Note Next Visit Plan upright bike, continue progressive balance. Alternate between sitting and standing exercises throughout session to increase pt's endurance.
--- NOTE | 2022-04-07 15:16 | PT.OTN ---
Current Diagnoses Guillain-[place] syndrome (04/07/22) Muscle weakness (generalized) (04/07/22) Difficulty in walking, not elsewhere classified (04/07/22) Physical Therapy Treatment Note PT-OP-A Visit Information Start: 08/18/21 11:31 Freq: Status: Active Protocol: Document 04/07/22 14:36 [facility] (Rec: 04/07/22 15:16 [facility] [id number]) Out-Patient Physical Therapy Visit Information Visit Information Visit Type Treatment Note Visit Note 02/03 Visit Start Time 14:34 Visit Stop Time 15:15 Total Visit Minutes 41 Visit Number 45 Number of PULP MILL SUPERVISOR Visits 0 PT-OP-B Current Condition Start: 08/18/21 11:31 Freq: Status: Active Protocol: Document 08/19/21 07:38 [facility] (Rec: 08/19/21 10:23 [facility] [id number]) Current Condition History of Current Condition Onset Date 1.5 years ago Current Complaints weakness History of Current Condition Pt was diagonosed w/ myelofibrosis which comes w/ low hematocrit and platelets and has slowly dec frequency to 4 weeks ago. He had [employer] shot February 08 and developed Guillian [place] Syndrome symptoms a few weeks later. He got his blood count done and was fine and was severe weakness. Severe weakness in legs and some in arms w/no reflexs and some facilitations whcih he doens't have it any more. He had infusions of immunoglobulin and it seemed to help a bit at first. He has an electric WC coming today that he paid for out of pocket that he plans to use when out of the house. He can recover from activity w/5 -10 min of rest. He has some ankle swelling that started aobut 6 months ago but labs have all been normal for possible CHF. Pt reports he gets SOB and weakness. He has postural hypotension. Pt reports some gradual minor memory loss. Pt has B hip replacement and a microdiscectomy L4-5. No falls . Pt sees Oncology every 3 weeks and gets a subcutaneous shot every 3 weeks which inc red blood cells. Prior to these diagnoses (1.5 years ago ), he was sailing, biking, tennis, hiking and walking. Pt reports he can cut about 3 roses then has to sit down d/t fatigue. His chores are very short. Indep w/ADLs. Can only walk 80ft before he has to rest. Prior Treatments and Tests No PT since all of this started Treatment Goals Patient/Caregiver Goals inc tolerance w/walking, inc endurance, be able to get up/ down from ground w/o outside support PT-OP-C Subjective Start: 08/18/21 11:31 Freq: Status: Active Protocol: Document 04/07/22 14:36 [facility] (Rec: 04/07/22 15:16 [facility] [id number]) OP-PT Subjective Patient Comments Patient Comments Pt reports he saw order packer or packager on Monday and he is scheduled for another pulmonary function test. He got his immunoglobulin shot a couple days ago and feels like it helped some but does feel off balance. Pt sees ENT in 2 weeks PT-OP-D Balance Start: 08/18/21 11:31 Freq: Status: Active Protocol: Document 08/19/21 07:38 [facility] (Rec: 08/19/21 10:23 [facility] [id number]) Balance Tests Dunn Balance Test Dunn Balance Test Score 46/56 PT-OP-E Functional Tests Start: 08/18/21 11:31 Freq: Status: Active Protocol: Document 03/24/22 10:33 [facility] (Rec: 03/24/22 11:14 [facility] [id number]) Functional Tests 6 Minute Walk Test Distance 705ft Device Used none Comments 4min 30 Second Sit to Stand Test Score 7 reps in 30 sec Comments hands across chest, 18 chair Dynamic Gait Index (DGI) Score 22/24 Five Times Sit to Stand Test Score 22.5 sec Functional Gait Assessment Score 20/30 PT-OP-G Mobility & Gait Start: 08/18/21 11:31 Freq: Status: Active Protocol: Document 08/19/21 07:38 [facility] (Rec: 08/19/21 10:23 [facility] [id number]) OP Mobility Evaluation Bed Mobility Supine to and from Sit indep Transfers Sit to Stand able to sit to stand indep - chooses to use UEs but can w/o OP Gait Assessment Comments Gait Comments Amb with slow pace and dec push off PT-OP-M Strength Start: 08/18/21 11:31 Freq: Status: Active Protocol: Document 03/24/22 10:33 [facility] (Rec: 03/24/22 11:14 [facility] [id number]) Hip Strength Hip Manual Muscle Testing Right Flexion (L2) 5 Normal Extension (S1) 3+ Fair+ Abduction 4 Good External Rotation 4- Good- Internal Rotation 5 Normal Left Flexion (L2) 4+ Good+ Extension (S1) 3+ Fair+ Abduction 4 Good External Rotation 4 Good Internal Rotation 5 Normal Comments if cued can do pure abd Knee Strength Knee Manual Muscle Testing Right Flexion (S2) 5 Normal Extension (L3) 5 Normal Left Flexion (S2) 5 Normal Extension (L3) 5 Normal Ankle/Foot Strength Ankle and Foot Manual Muscle Testing Right Dorsiflexion (L4) 5 Normal Plantarflexion (S1) 5 Normal Comments PF tested seated B Left Dorsiflexion (L4) 4+ Good+ Plantarflexion (S1) 4+ Good+ PT-OP-Q Treatments Start: 08/18/21 11:31 Freq: Status: Active Protocol: Document 04/07/22 14:36 [facility] (Rec: 04/07/22 15:16 [facility] [id number]) Cardio Equipment Bicycle (Upright) Duration (Minutes) 8 Resistance 8 Seat Position 9 Therapeutic Exercises Sitting Exercises Adduction Sitting Exercise Name Hip Add Side bilateral Equipment Used small ball Reps/Minutes 15x 10SH DF Sitting Exercise Name 1. dorsiflexion/PF Side bilateral Reps/Minutes 30 ea Knee flex Side bilateral Equipment Used Lvl 3 Reps/Minutes 20 ea knee ext Side bilateral Equipment Used L3 Reps/Minutes 20 ea march Side bilateral Equipment Used L3 Reps/Minutes 30 hip ER Side bilateral Equipment Used L3 Reps/Minutes 30 Standing Exercises march Standing Exercise Name in place Side bilateral Reps/Minutes 20 Comments no rail Neuro Re-Education Treatment Balance Activities cones Comments 1. weave around cones x4 (cues for as fast as can)-cones about 3 ft apart 2. weave cones w/filler picker of cones x8 cones carcioca Details rail prn Reps/Duration 20 ft Comments CGA bosu Reps/Duration 10 ea Comments 1. step ups w/sill 2. toe taps fwd & lateral head turns Comments 1. fwd walking down harding- horizontal and vertical 2x50ft ea PT-OP-T Assessment and Plan Start: 08/18/21 11:31 Freq: Status: Active Protocol: Document 04/07/22 14:36 [facility] (Rec: 04/07/22 15:16 [facility] [id number]) Physical Therapy Assessment Goals sit to stand Station Superintendent Goal (LTG) Pt will be able to complete at least 10 sit to stands in 30 sec to show improved strength and funcitonal ability. 11/01-imprvoed to 7 12/13/21: 6.5 reps in 30 sec.( rounds to 7) 01/26-6.5 reps 03/24-7 reps LTG Duration 04/28/22 balance Short Term Goal (STG) Pt will be able to score at least 20/ on DGI to show dec risk for falls. 11/01-improved to 17 12/13/20: STG Duration achieved 3/2 to 20 Station Superintendent Goal (LTG) Pt will score at least 22/30 to show dec risk for falls on FGA 03/24-DGI ; FGA LTG Duration 04/28/22 strength Short Term Goal (STG) Pt will be indep w/HEP STG Duration achieved progresssing as able Station Superintendent Goal (LTG) Pt will score at least 4/5 on all LE MMT to show improved strengtht o improve pt's ability to participate in home activities. 09/27-improving 11/01-improved 2-improved limited in ext & ER & abd 03/24-improving LTG Duration 04/28/22 walking Short Term Goal (STG) Pt willb e able to complete 2 min walk test w/o requriing seated rest break at least 160ft to show improved activity tolerance. 09/27-pt having difficulty w/ SOB more over past 2 weeks. Has been having testing done to determine reason 10/25-able to do 180ft but could only go 1.5 min 11/01-215ft but still only able to go 1.5 min 12/13/20: completed 206 ft in 2 min using SPC. STG Duration achieved 12/13 Station Superintendent Goal (LTG) Pt will be able to complete 6 min walk test with distance of at least 450ft. 01/26-achieved to 576ft progress goal to 800ft in 6 min 03/24-705ft w/able to walk 4 min before 1 min break then walking last min LTG Duration 04/28/22 Assessment Summary Assessment Pt did well with balance exercises but did get SOB w/ standing exercises but was able to recover actively w/ seated exercises. Physical Therapy Plan Frequency and Duration Frequency of Treatment 1-2x/wk Duration of Treatment 3 months Plan of Care Start Date 01/26/22 Plan of Care End Date 04/28/22 Next Visit Focus/Plan Next Note Type Treatment Note Next Visit Plan upright bike, continue progressive balance. Alternate between sitting and standing exercises throughout session to increase pt's endurance.
--- NOTE | 2022-04-21 15:56 | PT.OTN ---
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) Muscle weakness (generalized) (04/21/22) Difficulty in walking, not elsewhere classified (04/21/22) Physical Therapy Treatment Note PT-OP-A Visit Information Start: 08/18/21 11:31 Freq: Status: Active Protocol: Document 04/21/22 13:45 NB (Rec: 04/21/22 15:56 NB [id number]) Out-Patient Physical Therapy Visit Information Visit Information Visit Type Treatment Note Visit Note 03/06 Visit Start Time 13:45 Visit Stop Time 14:30 Total Visit Minutes 45 Visit Number 46 Number of GEOLOGICAL ENGINEER Visits 1 PT-OP-B Current Condition Start: 08/18/21 11:31 Freq: Status: Active Protocol: Document 08/19/21 07:38 [facility] (Rec: 08/19/21 10:23 [facility] [id number]) Current Condition History of Current Condition Onset Date 1.5 years ago Current Complaints weakness History of Current Condition Pt was diagonosed w/ myelofibrosis which comes w/ low hematocrit and platelets and has slowly dec frequency to 4 weeks ago. He had BuzzDoes shot February 08 and developed Guillian [place] Syndrome symptoms a few weeks later. He got his blood count done and was fine and was severe weakness. Severe weakness in legs and some in arms w/no reflexs and some facilitations whcih he doens't have it any more. He had infusions of immunoglobulin and it seemed to help a bit at first. He has an electric WC coming today that he paid for out of pocket that he plans to use when out of the house. He can recover from activity w/5 -10 min of rest. He has some ankle swelling that started aobut 6 months ago but labs have all been normal for possible CHF. Pt reports he gets SOB and weakness. He has postural hypotension. Pt reports some gradual minor memory loss. Pt has B hip replacement and a microdiscectomy L4-5. No falls . Pt sees Oncology every 3 weeks and gets a subcutaneous shot every 3 weeks which inc red blood cells. Prior to these diagnoses (1.5 years ago ), he was sailing, biking, tennis, hiking and walking. Pt reports he can cut about 3 roses then has to sit down d/t fatigue. His chores are very short. Indep w/ADLs. Can only walk 80ft before he has to rest. 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 Feeling well overall but a bit tired from activity earlier today. 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 PT-OP-D Balance Start: 08/18/21 11:31 Freq: Status: Active Protocol: Document 08/19/21 07:38 [facility] (Rec: 08/19/21 10:23 [facility] [id number]) Balance Tests Dunn Balance Test Dunn Balance Test Score 46/56 PT-OP-E Functional Tests Start: 08/18/21 11:31 Freq: Status: Active Protocol: Document 03/24/22 10:33 [facility] (Rec: 03/24/22 11:14 [facility] [id number]) Functional Tests 6 Minute Walk Test Distance 705ft Device Used none Comments 4min 30 Second Sit to Stand Test Score 7 reps in 30 sec Comments hands across chest, 18 chair Dynamic Gait Index (DGI) Score 22/24 Five Times Sit to Stand Test Score 22.5 sec Functional Gait Assessment Score 20/30 PT-OP-G Mobility & Gait Start: 08/18/21 11:31 Freq: Status: Active Protocol: Document 08/19/21 07:38 [facility] (Rec: 08/19/21 10:23 [facility] [id number]) OP Mobility Evaluation Bed Mobility Supine to and from Sit indep Transfers Sit to Stand able to sit to stand indep - chooses to use UEs but can w/o OP Gait Assessment Comments Gait Comments Amb with slow pace and dec push off PT-OP-M Strength Start: 08/18/21 11:31 Freq: Status: Active Protocol: Document 03/24/22 10:33 [facility] (Rec: 03/24/22 11:14 [facility] [id number]) Hip Strength Hip Manual Muscle Testing Right Flexion (L2) 5 Normal Extension (S1) 3+ Fair+ Abduction 4 Good External Rotation 4- Good- Internal Rotation 5 Normal Left Flexion (L2) 4+ Good+ Extension (S1) 3+ Fair+ Abduction 4 Good External Rotation 4 Good Internal Rotation 5 Normal Comments if cued can do pure abd Knee Strength Knee Manual Muscle Testing Right Flexion (S2) 5 Normal Extension (L3) 5 Normal Left Flexion (S2) 5 Normal Extension (L3) 5 Normal Ankle/Foot Strength Ankle and Foot Manual Muscle Testing Right Dorsiflexion (L4) 5 Normal Plantarflexion (S1) 5 Normal Comments PF tested seated B Left Dorsiflexion (L4) 4+ Good+ Plantarflexion (S1) 4+ Good+ PT-OP-Q Treatments Start: 08/18/21 11:31 Freq: Status: Active Protocol: Document 04/21/22 13:45 NB (Rec: 04/21/22 15:56 [facility] [id number]) Cardio Equipment Recumbent Bicycle Duration (Minutes) 8 Resistance 7-9 Seat Position 10 Therapeutic Exercises Sitting Exercises Adduction Sitting Exercise Name Hip Add Side bilateral Equipment Used small ball Reps/Minutes 15x 10SH DF Sitting Exercise Name 1. dorsiflexion/PF Side bilateral Reps/Minutes 30 ea Knee flex Side bilateral Equipment Used Lvl 3 Reps/Minutes 20 ea hip ER Side bilateral Equipment Used L3 Reps/Minutes 30 Standing Exercises march Standing Exercise Name in place Side bilateral Reps/Minutes 10 w/o rail, 10 w/ rail Gait Training Gait Activity Gait Device Used None Level of Assistance SBA Surface level Distance/Duration 1 lap around gym, seated rest b/w Treatment Focus increasing step width and length Neuro Re-Education Treatment Balance Activities carcioca Details rail prn Reps/Duration 20 ft Comments CGA bosu Reps/Duration 10 ea Comments step ups w/sill fwd/lat PT-OP-T Assessment and Plan Start: 08/18/21 11:31 Freq: Status: Active Protocol: Document 04/21/22 13:45 NBM (Rec: 04/21/22 15:56 [facility] [id number]) Physical Therapy Assessment Goals sit to stand Smoke Jumper Goal (LTG) Pt will be able to complete at least 10 sit to stands in 30 sec to show improved strength and funcitonal ability. 11/01-imprvoed to 7 12/13/21: 6.5 reps in 30 sec.( rounds to 7) 01/26-6.5 reps 03/24-7 reps LTG Duration 04/28/22 balance Short Term Goal (STG) Pt will be able to score at least 20/24 on DGI to show dec risk for falls. 11/01-improved to 17 12/13/20: STG Duration achieved 3/2 to 20 Smoke Jumper Goal (LTG) Pt will score at least 22/30 to show dec risk for falls on FGA 03/24-DGI ; FGA LTG Duration 04/28/22 strength Short Term Goal (STG) Pt will be indep w/HEP STG Duration achieved progresssing as able Smoke Jumper Goal (LTG) Pt will score at least 4/5 on all LE MMT to show improved strengtht o improve pt's ability to participate in home activities. 09/27-improving 11/01-improved 01/26-improved limited in ext & ER & abd 03/24-improving LTG Duration 04/28/22 walking Short Term Goal (STG) Pt willb e able to complete 2 min walk test w/o requriing seated rest break at least 160ft to show improved activity tolerance. 09/27-pt having difficulty w/ SOB more over past 2 weeks. Has been having testing done to determine reason 10/25-able to do 180ft but could only go 1.5 min 11/01-215ft but still only able to go 1.5 min 12/13/20: completed 206 ft in 2 min using SPC. STG Duration achieved 12/13 Mcfp Goal (LTG) Pt will be able to complete 6 min walk test with distance of at least 450ft. 01/26-achieved to 576ft progress goal to 800ft in 6 min 03/24-705ft w/able to walk 4 min before 1 min break then walking last min LTG Duration 04/28/22 Assessment Summary Assessment Goldy requires cueing for upright posture w/ standing exercises. He did get SOB with gait and standing exercises but recovered with seated exercises. His LLE is challenged with lateral step ups onto the Bosu more than the RLE. Physical Therapy Plan Next Visit Focus/Plan Next Note Type Treatment Note Next Visit Plan upright bike, continue progressive balance. Alternate between sitting and standing exercises throughout session to increase pt's endurance.
--- NOTE | 2022-04-26 10:32 | PT.OTN ---
Current Diagnoses Guillain-[place] syndrome (04/26/22) Muscle weakness (generalized) (04/26/22) Difficulty in walking, not elsewhere classified (04/26/22) Physical Therapy Treatment Note PT-OP-A Visit Information Start: 08/18/21 11:31 Freq: Status: Active Protocol: Document 04/26/22 09:46 [facility] (Rec: 04/26/22 10:32 [facility] [id number]) Out-Patient Physical Therapy Visit Information Visit Information Visit Type Progress Note Visit Note 12/06 Visit Start Time 09:46 Visit Stop Time 10:28 Total Visit Minutes 42 Visit Number 47 Number of MACHINIST GENERAL Visits 0 PT-OP-B Current Condition Start: 08/18/21 11:31 Freq: Status: Active Protocol: Document 08/19/21 07:38 [facility] (Rec: 08/19/21 10:23 [facility] [id number]) Current Condition History of Current Condition Onset Date 1.5 years ago Current Complaints weakness History of Current Condition Pt was diagonosed w/ myelofibrosis which comes w/ low hematocrit and platelets and has slowly dec frequency to 4 weeks ago. He had Moya Okruga shot February 08 and developed Guillian [place] Syndrome symptoms a few weeks later. He got his blood count done and was fine and was severe weakness. Severe weakness in legs and some in arms w/no reflexs and some facilitations whcih he doens't have it any more. He had infusions of immunoglobulin and it seemed to help a bit at first. He has an electric WC coming today that he paid for out of pocket that he plans to use when out of the house. He can recover from activity w/5 -10 min of rest. He has some ankle swelling that started aobut 6 months ago but labs have all been normal for possible CHF. Pt reports he gets SOB and weakness. He has postural hypotension. Pt reports some gradual minor memory loss. Pt has B hip replacement and a microdiscectomy L4-5. No falls . Pt sees Oncology every 3 weeks and gets a subcutaneous shot every 3 weeks which inc red blood cells. Prior to these diagnoses (1.5 years ago ), he was sailing, biking, tennis, hiking and walking. Pt reports he can cut about 3 roses then has to sit down d/t fatigue. His chores are very short. Indep w/ADLs. Can only walk 80ft before he has to rest. Prior Treatments and Tests No PT since all of this started Treatment Goals Patient/Caregiver Goals inc tolerance w/walking, inc endurance, be able to get up/ down from ground w/o outside support PT-OP-C Subjective Start: 08/18/21 11:31 Freq: Status: Active Protocol: Document 04/26/22 09:46 [facility] (Rec: 04/26/22 10:32 [facility] [id number]) OP-PT Subjective Patient Comments Patient Comments Pt reports he just had a repeat pulm function test and was told he still showed signs of pulm restriction, but awaiting to see networks computer consultant. He gets his injections next week. Pt notes inc in vertigo when rolling in bed and standing PT-OP-D Balance Start: 08/18/21 11:31 Freq: Status: Active Protocol: Document 08/19/21 07:38 [facility] (Rec: 08/19/21 10:23 [facility] [id number]) Balance Tests Dunn Balance Test Dunn Balance Test Score 46/56 PT-OP-E Functional Tests Start: 08/18/21 11:31 Freq: Status: Active Protocol: Document 04/26/22 09:46 [facility] (Rec: 04/26/22 10:32 [facility] [id number]) Functional Tests 6 Minute Walk Test Distance 802ft Device Used none 30 Second Sit to Stand Test Score 7 reps in 30 sec Comments hands across chest, 18 chair Five Times Sit to Stand Test Score 22 sec Functional Gait Assessment Score 17 PT-OP-G Mobility & Gait Start: 08/18/21 11:31 Freq: Status: Active Protocol: Document 08/19/21 07:38 [facility] (Rec: 08/19/21 10:23 [facility] [id number]) OP Mobility Evaluation Bed Mobility Supine to and from Sit indep Transfers Sit to Stand able to sit to stand indep - chooses to use UEs but can w/o OP Gait Assessment Comments Gait Comments Amb with slow pace and dec push off PT-OP-M Strength Start: 08/18/21 11:31 Freq: Status: Active Protocol: Document 04/26/22 09:46 [facility] (Rec: 04/26/22 10:32 [facility] [id number]) Hip Strength Hip Manual Muscle Testing Right Flexion (L2) 4+ Good+ Extension (S1) 3+ Fair+ Abduction 4- Good- External Rotation 4 Good Internal Rotation 5 Normal Left Flexion (L2) 4 Good Extension (S1) 3+ Fair+ Abduction 4 Good External Rotation 4 Good Internal Rotation 5 Normal Comments if cued can do pure abd Knee Strength Knee Manual Muscle Testing Right Flexion (S2) 5 Normal Extension (L3) 5 Normal Left Flexion (S2) 5 Normal Extension (L3) 5 Normal Ankle/Foot Strength Ankle and Foot Manual Muscle Testing Right Dorsiflexion (L4) 5 Normal Plantarflexion (S1) 5 Normal Comments PF tested seated B Left Dorsiflexion (L4) 4+ Good+ Plantarflexion (S1) 4+ Good+ PT-OP-Q Treatments Start: 08/18/21 11:31 Freq: Status: Active Protocol: Document 04/26/22 09:46 [facility] (Rec: 04/26/22 10:32 [facility] [id number]) Therapeutic Exercises Standing Exercises heel raises Standing Exercise Name heel raises Side bilateral Reps/Minutes 10 Comments rail prn hip ext Standing Exercise Name hip ext Side bilateral Equipment Used rail Reps/Minutes 15 hip abd Standing Exercise Name hip abd Side bilateral Equipment Used rail Reps/Minutes 08 february Standing Exercise Name in place Side bilateral Equipment Used rail Reps/Minutes 10 Neuro Re-Education Treatment Balance Activities EC Details fwd walk Reps/Duration 50ft staggered stance Details tandem walk attempts 2x20ft Self-Care/Home Management Treatment Education Other Education edu to pt re: walking w/his partner at home and working on a mix of his standing, seated and supine exercises daily, edu re: option of medical management trainer and also discussing talking to MD re: pul rehab. PT-OP-T Assessment and Plan Start: 08/18/21 11:31 Freq: Status: Active Protocol: Document 04/26/22 09:46 [facility] (Rec: 04/26/22 10:32 [facility] [id number]) Physical Therapy Assessment Goals sit to stand Risk And Insurance Manager Goal (LTG) Pt will be able to complete at least 10 sit to stands in 30 sec to show improved strength and funcitonal ability. 11/01-imprvoed to 7 12/13/21: 6.5 reps in 30 sec.( rounds to 7) 01/26-6.5 reps 03/24-7 reps 04/26-no change LTG Duration 05/26 balance Short Term Goal (STG) Pt will be able to score at least 20/24 on DGI to show dec risk for falls. 11/01-improved to 17 12/13/20: STG Duration achieved 3/2 to 20 Risk And Insurance Manager Goal (LTG) Pt will score at least 22/30 to show dec risk for falls on FGA 03/24-DGI ; FGA 04/26- LTG Duration 05/26 strength Short Term Goal (STG) Pt will be indep w/HEP STG Duration achieved progresssing as able Intermediate Goal (LTG) Pt will score at least 4/5 on all LE MMT to show improved strengtht o improve pt's ability to participate in home activities. 09/27-improving 11/01-improved 3-improved limited in ext & ER & abd 03/24-improving 04/26-abd and ext limited LTG Duration 05/26 walking Short Term Goal (STG) Pt willb e able to complete 2 min walk test w/o requriing seated rest break at least 160ft to show improved activity tolerance. 09/27-pt having difficulty w/ SOB more over past 2 weeks. Has been having testing done to determine reason 10/25-able to do 180ft but could only go 1.5 min 11/01-215ft but still only able to go 1.5 min 12/13/20: completed 206 ft in 2 min using SPC. STG Duration achieved 12/13 Intermediate Goal (LTG) Pt will be able to complete 6 min walk test with distance of at least 450ft. 3/2-achieved to 576ft progress goal to 800ft in 6 min 03/24-705ft w/able to walk 4 min before 1 min break then walking last min 04/26-able to do full 6 min walk test 802ft. LTG Duration achieved 04/26 Assessment Summary Assessment Pt is starting to plateau with progress at this time. He showed more activity tolerance w/6 min walk test and did not require a seat during test, but that did wipe him out for other testting. Pt to cont over next couple weeks to work on indep w/HEP for home. Physical Therapy Plan Frequency and Duration Frequency of Treatment 1-2x/wk Duration of Treatment 1 month Plan of Care Start Date 04/26/22 Plan of Care End Date 05/26/22 Therapeutic Interventions Therapeutic Interventions Aquatic Therapy,Balance Training,Gait Training,Home Exercise Program,Joint Mobilizations,Manual Therapy, Neuromuscular Re-education, Orthotic/Prosthetic Management ,Patient/Caregiver Education, Self-Care/Home Management,Soft Tissue Mobilization,Taping, Therapeutic Activities, Therapeutic Exercises Modalities Cold Pack/Ice Massage,Electric Stimulation,Hot Packs Next Visit Focus/Plan Next Note Type Treatment Note Next Visit Plan work towards DC. review standing HEP, supine HEP
--- NOTE | 2022-04-26 10:32 | PT.OPPOC ---
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 (Rec: 04/26/22 10:32 [facility] [id number]) Physical Therapy Assessment Goals sit to stand Senior Care Goal (LTG) Pt will be able to complete at least 10 sit to stands in 30 sec to show improved strength and funcitonal ability. 11/01-imprvoed to 7 12/13/21: 6.5 reps in 30 sec.( rounds to 7) 01/26-6.5 reps 03/24-7 reps 04/26-no change LTG Duration 05/26 balance Short Term Goal (STG) Pt will be able to score at least 20/24 on DGI to show dec risk for falls. 11/01-improved to 17 12/13/20: STG Duration achieved 3/2 to 20 Toll Bridge Operator Goal (LTG) Pt will score at least 22/30 to show dec risk for falls on FGA 03/24-DGI ; FGA 04/26- LTG Duration 05/26 strength Short Term Goal (STG) Pt will be indep w/HEP STG Duration achieved progresssing as able Senior Care Goal (LTG) Pt will score at least 4/5 on all LE MMT to show improved strengtht o improve pt's ability to participate in home activities. 09/27-improving 11/01-improved 2-improved limited in ext & ER & abd 03/24-improving 04/26-abd and ext limited LTG Duration 05/26 walking Short Term Goal (STG) Pt willb e able to complete 2 min walk test w/o requriing seated rest break at least 160ft to show improved activity tolerance. 09/27-pt having difficulty w/ SOB more over past 2 weeks. Has been having testing done to determine reason 10/25-able to do 180ft but could only go 1.5 min 11/01-215ft but still only able to go 1.5 min 12/13/20: completed 206 ft in 2 min using SPC. STG Duration achieved 12/13 Senior Care Goal (LTG) Pt will be able to complete 6 min walk test with distance of at least 450ft. 01/26-achieved to 576ft progress goal to 800ft in 6 min 03/24-705ft w/able to walk 4 min before 1 min break then walking last min 04/26-able to do full 6 min walk test 802ft. LTG Duration achieved 04/26 Assessment Summary Assessment Pt is starting to plateau with progress at this time. He showed more activity tolerance w/6 min walk test and did not require a seat during test, but that did wipe him out for other testting. Pt to cont over next couple weeks to work on indep w/HEP for home. Physical Therapy Plan Frequency and Duration Frequency of Treatment 1-2x/wk Duration of Treatment 1 month Plan of Care Start Date 04/26/22 Plan of Care End Date 05/26/22 Therapeutic Interventions Therapeutic Interventions Aquatic Therapy,Balance Training,Gait Training,Home Exercise Program,Joint Mobilizations,Manual Therapy, Neuromuscular Re-education, Orthotic/Prosthetic Management ,Patient/Caregiver Education, Self-Care/Home Management,Soft Tissue Mobilization,Taping, Therapeutic Activities, Therapeutic Exercises Modalities Cold Pack/Ice Massage,Electric Stimulation,Hot Packs Next Visit Focus/Plan Next Note Type Treatment Note Next Visit Plan work towards DC. review standing HEP, supine HEP Plan of Care Dates Plan of Care Start Date 04/26/22 Plan of Care End Date 05/26/22 Electronically Signed by: Cydney Tracy, PT 04/26/22 1032 If you are in agreement with this Plan of Care, please return a signed and dated copy. I have reviewed this Plan of Care and certify that the skilled therapy services above are required to meet the patient?s needs. Physician Signature Date Printed Name and Credentials Clinical Instructor Signature Printed Name and Credentials
--- NOTE | 2022-04-28 16:24 | PT.OTN ---
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) Muscle weakness (generalized) (04/28/22) Difficulty in walking, not elsewhere classified (04/28/22) Physical Therapy Treatment Note PT-OP-A Visit Information Start: 08/18/21 11:31 Freq: Status: Active Protocol: Document 04/28/22 13:40 MA (Rec: 04/28/22 14:31 MA [id number]) Out-Patient Physical Therapy Visit Information Visit Information Visit Type Treatment Note Visit Note 01/06 Visit Start Time 13:40 Visit Stop Time 14:20 Total Visit Minutes 40 Visit Number 48 Number of [employer] Visits 1 PT-OP-B Current Condition Start: 08/18/21 11:31 Freq: Status: Active Protocol: Document 08/19/21 07:38 [facility] (Rec: 08/19/21 10:23 [facility] [id number]) Current Condition History of Current Condition Onset Date 1.5 years ago Current Complaints weakness History of Current Condition Pt was diagonosed w/ myelofibrosis which comes w/ low hematocrit and platelets and has slowly dec frequency to 4 weeks ago. He had [employer]rap[employer] shot February 08 and developed Guillian [place] Syndrome symptoms a few weeks later. He got his blood count done and was fine and was severe weakness. Severe weakness in legs and some in arms w/no reflexs and some facilitations whcih he doens't have it any more. He had infusions of immunoglobulin and it seemed to help a bit at first. He has an electric WC coming today that he paid for out of pocket that he plans to use when out of the house. He can recover from activity w/5 -10 min of rest. He has some ankle swelling that started aobut 6 months ago but labs have all been normal for possible CHF. Pt reports he gets SOB and weakness. He has postural hypotension. Pt reports some gradual minor memory loss. Pt has B hip replacement and a microdiscectomy L4-5. No falls . Pt sees Oncology every 3 weeks and gets a subcutaneous shot every 3 weeks which inc red blood cells. Prior to these diagnoses (1.5 years ago ), he was sailing, biking, tennis, hiking and walking. Pt reports he can cut about 3 roses then has to sit down d/t fatigue. His chores are very short. Indep w/ADLs. Can only walk 80ft before he has to rest. Prior Treatments and Tests No PT since all of this started Treatment Goals Patient/Caregiver Goals inc tolerance w/walking, inc endurance, be able to get up/ down from ground w/o outside support PT-OP-C Subjective Start: 08/18/21 11:31 Freq: Status: Active Protocol: Document 04/28/22 13:40 MA (Rec: 04/28/22 14:31 MA [id number]) OP-PT Subjective Patient Comments Patient Comments Pt reports increased pulmonary issues with difficulty breathing and feeling more tired. He has a preciption for albuterol to help his breathing but doesn't know if hevwants to take it. He arrives using SPC to walk this session. PT-OP-D Balance Start: 08/18/21 11:31 Freq: Status: Active Protocol: Document 08/19/21 07:38 [facility] (Rec: 08/19/21 10:23 [facility] [id number]) Balance Tests Dunn Balance Test Dunn Balance Test Score 46/56 PT-OP-E Functional Tests Start: 08/18/21 11:31 Freq: Status: Active Protocol: Document 04/26/22 09:46 [facility] (Rec: 04/26/22 10:32 [facility] [id number]) Functional Tests 6 Minute Walk Test Distance 802ft Device Used none 30 Second Sit to Stand Test Score 7 reps in 30 sec Comments hands across chest, 18 chair Five Times Sit to Stand Test Score 22 sec Functional Gait Assessment Score 17 PT-OP-G Mobility & Gait Start: 08/18/21 11:31 Freq: Status: Active Protocol: Document 08/19/21 07:38 [facility] (Rec: 08/19/21 10:23 [facility] [id number]) OP Mobility Evaluation Bed Mobility Supine to and from Sit indep Transfers Sit to Stand able to sit to stand indep - chooses to use UEs but can w/o OP Gait Assessment Comments Gait Comments Amb with slow pace and dec push off PT-OP-M Strength Start: 08/18/21 11:31 Freq: Status: Active Protocol: Document 04/26/22 09:46 [facility] (Rec: 04/26/22 10:32 [facility] [id number]) Hip Strength Hip Manual Muscle Testing Right Flexion (L2) 4+ Good+ Extension (S1) 3+ Fair+ Abduction 4- Good- External Rotation 4 Good Internal Rotation 5 Normal Left Flexion (L2) 4 Good Extension (S1) 3+ Fair+ Abduction 4 Good External Rotation 4 Good Internal Rotation 5 Normal Comments if cued can do pure abd Knee Strength Knee Manual Muscle Testing Right Flexion (S2) 5 Normal Extension (L3) 5 Normal Left Flexion (S2) 5 Normal Extension (L3) 5 Normal Ankle/Foot Strength Ankle and Foot Manual Muscle Testing Right Dorsiflexion (L4) 5 Normal Plantarflexion (S1) 5 Normal Comments PF tested seated B Left Dorsiflexion (L4) 4+ Good+ Plantarflexion (S1) 4+ Good+ PT-OP-Q Treatments Start: 08/18/21 11:31 Freq: Status: Active Protocol: Document 04/28/22 13:40 MA (Rec: 04/28/22 14:31 MA [id number]) Cardio Equipment Bicycle (Upright) Duration (Minutes) 8 Resistance 8 Seat Position 10 Therapeutic Exercises Supine Exercises Clamshell Equipment Used lvl 3 TB Reps/Minutes x15 SLR Side bilateral Reps/Minutes 10 bridge Side bilateral Reps/Minutes 10x5SH Sidelying Exercises reverse clam Side bilateral Reps/Minutes 10 abd Sidelying Exercise Name hip Side bilateral Reps/Minutes 2x10 clamshell Side bilateral Equipment Used lvl 1 Reps/Minutes 15 Sitting Exercises DF Sitting Exercise Name 1. dorsiflexion/PF Side bilateral Reps/Minutes 30 ea Knee flex Side bilateral Equipment Used Lvl 3 Reps/Minutes 20 ea knee ext Side bilateral Equipment Used L3 Reps/Minutes 20 ea Standing Exercises heel raises Standing Exercise Name heel raises Side bilateral Reps/Minutes 20x Comments rail prn hip ext Standing Exercise Name hip ext Side bilateral Equipment Used rail Reps/Minutes 10 hip abd Standing Exercise Name hip abd Side bilateral Equipment Used rail Reps/Minutes 10 january Standing Exercise Name in place Side bilateral Equipment Used rail Reps/Minutes 20x sit to stand Side bilateral Reps/Minutes x10 Comments UEs for momentum today Self-Care/Home Management Treatment Education Other Education Discussed trying 15-20 minutes of HEP a day as pt has not been keeping up with HEP at home and feels he is declining . 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 PT-OP-T Assessment and Plan Start: 08/18/21 11:31 Freq: Status: Active Protocol: Document 04/28/22 13:40 MA (Rec: 04/28/22 14:31 MA [id number]) Physical Therapy Assessment Goals sit to stand Half-Way Goal (LTG) Pt will be able to complete at least 10 sit to stands in 30 sec to show improved strength and funcitonal ability. 11/01-imprvoed to 7 12/13/21: 6.5 reps in 30 sec.( rounds to 7) 01/26-6.5 reps 03/24-7 reps 04/26-no change LTG Duration 05/26 balance Short Term Goal (STG) Pt will be able to score at least / on DGI to show dec risk for falls. 11/01-improved to 17 12/13/20: STG Duration achieved 3/2 to 20 Half-Way Goal (LTG) Pt will score at least 22/30 to show dec risk for falls on FGA 03/24-DGI ; FGA 04/26- LTG Duration 05/26 strength Short Term Goal (STG) Pt will be indep w/HEP STG Duration achieved progresssing as able Half-Way Goal (LTG) Pt will score at least 4/5 on all LE MMT to show improved strengtht o improve pt's ability to participate in home activities. 09/27-improving 11/01-improved 01/26-improved limited in ext & ER & abd 03/24-improving 04/26-abd and ext limited LTG Duration 05/26 walking Short Term Goal (STG) Pt willb e able to complete 2 min walk test w/o requriing seated rest break at least 160ft to show improved activity tolerance. 09/27-pt having difficulty w/ SOB more over past 2 weeks. Has been having testing done to determine reason 10/25-able to do 180ft but could only go 1.5 min 11/01-215ft but still only able to go 1.5 min 12/13/20: completed 206 ft in 2 min using SPC. STG Duration achieved 12/13 [employer] Goal (LTG) Pt will be able to complete 6 min walk test with distance of at least 450ft. 3-achieved to 576ft progress goal to 800ft in 6 min 03/24-705ft w/able to walk 4 min before 1 min break then walking last min 04/26-able to do full 6 min walk test 802ft. LTG Duration achieved 04/26 Assessment Summary Assessment Reviewed supine and SL HEP with pt having difficulty maintaining neutral with hip abduction and clamshell exercises. Pt has not been keeping up with HEP at home aside from when he sits in his car and performs clamshells and marching with theraband resistance while his partner drives him to appointments. Pt feels he has improved his gait and balance since starting therapy, but he still feels weak. Discussed with pt how he has only been coming to PT 1-2x/wk and does not exercise between sessions, spending majority of time at home in recliner. He has less vertigo on therapy days or days when he works in his garden. Discussed trying to start with 15-20 minutes/day of HEP and seeing if he has improvement in breathing, fatigue, and vertigo. Pt agreeable to being more diligent with HEP and reporting back if he has any improvement. Encouraged pt to sign up for cardiopulmonary rehab as he will soon be d/c from therapy. Physical Therapy Plan Frequency and Duration Frequency of Treatment 1-2x/wk Duration of Treatment 1 month Plan of Care Start Date 04/26/22 Plan of Care End Date 05/26/22 Therapeutic Interventions Therapeutic Interventions Aquatic Therapy,Balance Training,Gait Training,Home Exercise Program,Joint Mobilizations,Manual Therapy, Neuromuscular Re-education, Orthotic/Prosthetic Management ,Patient/Caregiver Education, Self-Care/Home Management,Soft Tissue Mobilization,Taping, Therapeutic Activities, Therapeutic Exercises Modalities Cold Pack/Ice Massage,Electric Stimulation,Hot Packs Next Visit Focus/Plan Next Note Type Treatment Note Next Visit Plan Check if pt kept up with 15-20 min/day of HEP and if dizziness improved with exercise. work towards DC. review standing HEP, supine HEP
--- NOTE | 2022-05-04 12:03 | PT.OTN ---
Current Diagnoses Guillain-[place] syndrome (05/04/22) Muscle weakness (generalized) (05/04/22) Difficulty in walking, not elsewhere classified (05/04/22) Physical Therapy Treatment Note PT-OP-A Visit Information Start: 08/18/21 11:31 Freq: Status: Active Protocol: Document 05/04/22 11:20 MA (Rec: 05/04/22 12:03 MA [id number]) Out-Patient Physical Therapy Visit Information Visit Information Visit Type Treatment Note Visit Note 02/03 Visit Start Time 11:15 Visit Stop Time 11:56 Total Visit Minutes 41 Visit Number 49 Number of RN CLINICAL APPEALS Visits 2 PT-OP-B Current Condition Start: 08/18/21 11:31 Freq: Status: Active Protocol: Document 08/19/21 07:38 [facility] (Rec: 08/19/21 10:23 [facility] [id number]) Current Condition History of Current Condition Onset Date 1.5 years ago Current Complaints weakness History of Current Condition Pt was diagonosed w/ myelofibrosis which comes w/ low hematocrit and platelets and has slowly dec frequency to 4 weeks ago. He had [employer] shot February 08 and developed Guillian [place] Syndrome symptoms a few weeks later. He got his blood count done and was fine and was severe weakness. Severe weakness in legs and some in arms w/no reflexs and some facilitations whcih he doens't have it any more. He had infusions of immunoglobulin and it seemed to help a bit at first. He has an electric WC coming today that he paid for out of pocket that he plans to use when out of the house. He can recover from activity w/5 -10 min of rest. He has some ankle swelling that started aobut 6 months ago but labs have all been normal for possible CHF. Pt reports he gets SOB and weakness. He has postural hypotension. Pt reports some gradual minor memory loss. Pt has B hip replacement and a microdiscectomy L4-5. No falls . Pt sees Oncology every 3 weeks and gets a subcutaneous shot every 3 weeks which inc red blood cells. Prior to these diagnoses (1.5 years ago ), he was sailing, biking, tennis, hiking and walking. Pt reports he can cut about 3 roses then has to sit down d/t fatigue. His chores are very short. Indep w/ADLs. Can only walk 80ft before he has to rest. Prior Treatments and Tests No PT since all of this started Treatment Goals Patient/Caregiver Goals inc tolerance w/walking, inc endurance, be able to get up/ down from ground w/o outside support PT-OP-C Subjective Start: 08/18/21 11:31 Freq: Status: Active Protocol: Document 05/04/22 11:20 MA (Rec: 05/04/22 12:03 MA [id number]) OP-PT Subjective Patient Comments Patient Comments Pt reports getting infusion yesterday but feels it didn't help as much as usual. He did not do his HEP due to having family in town. Pt has been taking albuterol 2xdaily and feels it helps a little with breathing. PT-OP-D Balance Start: 08/18/21 11:31 Freq: Status: Active Protocol: Document 08/19/21 07:38 [facility] (Rec: 08/19/21 10:23 [facility] [id number]) Balance Tests Dunn Balance Test Dunn Balance Test Score 46/56 PT-OP-E Functional Tests Start: 08/18/21 11:31 Freq: Status: Active Protocol: Document 04/26/22 09:46 [facility] (Rec: 04/26/22 10:32 [facility] [id number]) Functional Tests 6 Minute Walk Test Distance 802ft Device Used none 30 Second Sit to Stand Test Score 7 reps in 30 sec Comments hands across chest, 18 chair Five Times Sit to Stand Test Score 22 sec Functional Gait Assessment Score 17 PT-OP-G Mobility & Gait Start: 08/18/21 11:31 Freq: Status: Active Protocol: Document 08/19/21 07:38 [facility] (Rec: 08/19/21 10:23 [facility] [id number]) OP Mobility Evaluation Bed Mobility Supine to and from Sit indep Transfers Sit to Stand able to sit to stand indep - chooses to use UEs but can w/o OP Gait Assessment Comments Gait Comments Amb with slow pace and dec push off PT-OP-M Strength Start: 08/18/21 11:31 Freq: Status: Active Protocol: Document 04/26/22 09:46 [facility] (Rec: 04/26/22 10:32 [facility] [id number]) Hip Strength Hip Manual Muscle Testing Right Flexion (L2) 4+ Good+ Extension (S1) 3+ Fair+ Abduction 4- Good- External Rotation 4 Good Internal Rotation 5 Normal Left Flexion (L2) 4 Good Extension (S1) 3+ Fair+ Abduction 4 Good External Rotation 4 Good Internal Rotation 5 Normal Comments if cued can do pure abd Knee Strength Knee Manual Muscle Testing Right Flexion (S2) 5 Normal Extension (L3) 5 Normal Left Flexion (S2) 5 Normal Extension (L3) 5 Normal Ankle/Foot Strength Ankle and Foot Manual Muscle Testing Right Dorsiflexion (L4) 5 Normal Plantarflexion (S1) 5 Normal Comments PF tested seated B Left Dorsiflexion (L4) 4+ Good+ Plantarflexion (S1) 4+ Good+ PT-OP-Q Treatments Start: 08/18/21 11:31 Freq: Status: Active Protocol: Document 05/04/22 11:20 MA (Rec: 05/04/22 12:03 MA [id number]) Cardio Equipment Bicycle (Upright) Duration (Minutes) 8 Resistance 8 Seat Position 10 Therapeutic Exercises Supine Exercises SLR Side bilateral Reps/Minutes 2x10 Comments pt unable to achieve full knee ext bridge Side bilateral Reps/Minutes 10x5SH Comments cues for R glute engagement Sidelying Exercises reverse clam Side bilateral Reps/Minutes 2x10 abd Sidelying Exercise Name hip Side bilateral Reps/Minutes 2x10 clamshell Side bilateral Equipment Used lvl 2 TB Reps/Minutes 2x10 Sitting Exercises Stretch Sitting Exercise Name HS stretch Side bilateral Reps/Minutes 2x1' ea DF Sitting Exercise Name 1. dorsiflexion/PF Side bilateral Reps/Minutes 30 ea Standing Exercises heel raises Standing Exercise Name heel raises/ toe raises Side bilateral Equipment Used rail Reps/Minutes 20x Comments heavy cues to avoid fwd flexion during toe raises sit to stand Side bilateral Reps/Minutes x10 Gait Training Gait Activity Gait Device Used none Level of Assistance SBA-Min A Surface smooth Distance/Duration 2 laps of gym with seated rest break between Treatment Focus improving heel strike PT-OP-T Assessment and Plan Start: 08/18/21 11:31 Freq: Status: Active Protocol: Document 05/04/22 11:20 MA (Rec: 05/04/22 12:03 MA [id number]) Physical Therapy Assessment Goals sit to stand Heel Buffer Goal (LTG) Pt will be able to complete at least 10 sit to stands in 30 sec to show improved strength and funcitonal ability. 12/6-imprvoed to 7 12/13/21: 6.5 reps in 30 sec.( rounds to 7) 01/26-6.5 reps 03/24-7 reps 04/26-no change LTG Duration 05/26 balance Short Term Goal (STG) Pt will be able to score at least 20/24 on DGI to show dec risk for falls. 11/01-improved to 17 12/13/20: STG Duration achieved 3/2 to 20 Heel Buffer Goal (LTG) Pt will score at least 22/ to show dec risk for falls on FGA 03/24-DGI ; FGA 04/26- LTG Duration 05/26 strength Short Term Goal (STG) Pt will be indep w/HEP STG Duration achieved progresssing as able Heel Buffer Goal (LTG) Pt will score at least 4/5 on all LE MMT to show improved strengtht o improve pt's ability to participate in home activities. 09/27-improving 11/01-improved 01/26-improved limited in ext & ER & abd 03/24-improving 04/26-abd and ext limited LTG Duration 05/26 walking Short Term Goal (STG) Pt willb e able to complete 2 min walk test w/o requriing seated rest break at least 160ft to show improved activity tolerance. 09/27-pt having difficulty w/ SOB more over past 2 weeks. Has been having testing done to determine reason 10/25-able to do 180ft but could only go 1.5 min 11/01-215ft but still only able to go 1.5 min 12/13/20: completed 206 ft in 2 min using SPC. STG Duration achieved 12/13 [facility] Goal (LTG) Pt will be able to complete 6 min walk test with distance of at least 450ft. 01/26-achieved to 576ft progress goal to 800ft in 6 min 03/24-705ft w/able to walk 4 min before 1 min break then walking last min 04/26-able to do full 6 min walk test 802ft. LTG Duration achieved 04/26 Assessment Summary Assessment Goldy admits not trying 15 minutes of HEP daily but doing more standing HEP at home and walking more this week since his brother was in town. He has been taking albuterol to help with his breathing issues and feels it helps a little bit but RN CLINICAL APPEALS notices no change in pt's SOB during tx. Pt demonstrates decreased strength through RLE today and needs cues to increase ROM during all exercises. Worked on increasing heel strike during gait today with pt improving after seated stretch for HS/gastrocs. Added seated HS stretch to HEP and encouraged pt to continue thinking about heel strike as he walks at home. Physical Therapy Plan Frequency and Duration Frequency of Treatment 1-2x/wk Duration of Treatment 1 month Plan of Care Start Date 04/26/22 Plan of Care End Date 05/26/22 Therapeutic Interventions Therapeutic Interventions Aquatic Therapy,Balance Training,Gait Training,Home Exercise Program,Joint Mobilizations,Manual Therapy, Neuromuscular Re-education, Orthotic/Prosthetic Management ,Patient/Caregiver Education, Self-Care/Home Management,Soft Tissue Mobilization,Taping, Therapeutic Activities, Therapeutic Exercises Modalities Cold Pack/Ice Massage,Electric Stimulation,Hot Packs Next Visit Focus/Plan Next Note Type Treatment Note Next Visit Plan Review seated HS stretch. Check if pt kept up with 15-20 min/day of HEP and if dizziness improved with exercise. work towards DC. review standing HEP, supine HEP
--- NOTE | 2022-05-10 11:19 | PT.OTN ---
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) Muscle weakness (generalized) (05/10/22) Difficulty in walking, not elsewhere classified (05/10/22) Physical Therapy Treatment Note PT-OP-A Visit Information Start: 08/18/21 11:31 Freq: Status: Active Protocol: Document 05/10/22 10:03 [facility] (Rec: 05/10/22 11:19 [facility] [id number]) Out-Patient Physical Therapy Visit Information Visit Information Visit Type Treatment Note Visit Note 03/06 Visit Start Time 09:50 Visit Stop Time 10:32 Total Visit Minutes 42 Visit Number 50 Number of AERIAL GUNNER SUPERINTENDENT Visits 0 PT-OP-B Current Condition Start: 08/18/21 11:31 Freq: Status: Active Protocol: Document 08/19/21 07:38 [facility] (Rec: 08/19/21 10:23 [facility] [id number]) Current Condition History of Current Condition Onset Date 1.5 years ago Current Complaints weakness History of Current Condition Pt was diagonosed w/ myelofibrosis which comes w/ low hematocrit and platelets and has slowly dec frequency to 4 weeks ago. He had [place] shot February 08 and developed Guillian Moran Syndrome symptoms a few weeks later. He got his blood count done and was fine and was severe weakness. Severe weakness in legs and some in arms w/no reflexs and some facilitations whcih he doens't have it any more. He had infusions of immunoglobulin and it seemed to help a bit at first. He has an electric WC coming today that he paid for out of pocket that he plans to use when out of the house. He can recover from activity w/5 -10 min of rest. He has some ankle swelling that started aobut 6 months ago but labs have all been normal for possible CHF. Pt reports he gets SOB and weakness. He has postural hypotension. Pt reports some gradual minor memory loss. Pt has B hip replacement and a microdiscectomy L4-5. No falls . Pt sees Oncology every 3 weeks and gets a subcutaneous shot every 3 weeks which inc red blood cells. Prior to these diagnoses (1.5 years ago ), he was sailing, biking, tennis, hiking and walking. Pt reports he can cut about 3 roses then has to sit down d/t fatigue. His chores are very short. Indep w/ADLs. Can only walk 80ft before he has to rest. Prior Treatments and Tests No PT since all of this started Treatment Goals Patient/Caregiver Goals inc tolerance w/walking, inc endurance, be able to get up/ down from ground w/o outside support PT-OP-C Subjective Start: 08/18/21 11:31 Freq: Status: Active Protocol: Document 05/10/22 10:03 [facility] (Rec: 05/10/22 11:19 [facility] [id number]) OP-PT Subjective Patient Comments Patient Comments Pt tried riding bike w/partner this weekend and did well for 2 miles but when tried to dismount, he fell over and scraped knee and elbow. PT-OP-D Balance Start: 08/18/21 11:31 Freq: Status: Active Protocol: Document 08/19/21 07:38 [facility] (Rec: 08/19/21 10:23 [facility] [id number]) Balance Tests Dunn Balance Test Dunn Balance Test Score 46/56 PT-OP-E Functional Tests Start: 08/18/21 11:31 Freq: Status: Active Protocol: Document 04/26/22 09:46 [facility] (Rec: 04/26/22 10:32 [facility] [id number]) Functional Tests 6 Minute Walk Test Distance 802ft Device Used none 30 Second Sit to Stand Test Score 7 reps in 30 sec Comments hands across chest, 18 chair Five Times Sit to Stand Test Score 22 sec Functional Gait Assessment Score 17 PT-OP-G Mobility & Gait Start: 08/18/21 11:31 Freq: Status: Active Protocol: Document 08/19/21 07:38 [facility] (Rec: 08/19/21 10:23 [facility] [id number]) OP Mobility Evaluation Bed Mobility Supine to and from Sit indep Transfers Sit to Stand able to sit to stand indep - chooses to use UEs but can w/o OP Gait Assessment Comments Gait Comments Amb with slow pace and dec push off PT-OP-M Strength Start: 08/18/21 11:31 Freq: Status: Active Protocol: Document 04/26/22 09:46 [facility] (Rec: 04/26/22 10:32 [facility] [id number]) Hip Strength Hip Manual Muscle Testing Right Flexion (L2) 4+ Good+ Extension (S1) 3+ Fair+ Abduction 4- Good- External Rotation 4 Good Internal Rotation 5 Normal Left Flexion (L2) 4 Good Extension (S1) 3+ Fair+ Abduction 4 Good External Rotation 4 Good Internal Rotation 5 Normal Comments if cued can do pure abd Knee Strength Knee Manual Muscle Testing Right Flexion (S2) 5 Normal Extension (L3) 5 Normal Left Flexion (S2) 5 Normal Extension (L3) 5 Normal Ankle/Foot Strength Ankle and Foot Manual Muscle Testing Right Dorsiflexion (L4) 5 Normal Plantarflexion (S1) 5 Normal Comments PF tested seated B Left Dorsiflexion (L4) 4+ Good+ Plantarflexion (S1) 4+ Good+ PT-OP-Q Treatments Start: 08/18/21 11:31 Freq: Status: Active Protocol: Document 05/10/22 10:03 [facility] (Rec: 05/10/22 11:19 [facility] [id number]) Therapeutic Exercises Sitting Exercises Stretch Sitting Exercise Name HS stretch Side bilateral Reps/Minutes x1' ea Adduction Sitting Exercise Name Hip Add Side bilateral Equipment Used small ball Reps/Minutes 15x 10SH DF Sitting Exercise Name 1. dorsiflexion/PF Side bilateral Reps/Minutes 30 ea Knee flex Side bilateral Equipment Used Lvl 3 Reps/Minutes 20 ea knee ext Side bilateral Equipment Used L3 Reps/Minutes 15 ea march Side bilateral Equipment Used L3 Reps/Minutes 30 hip ER Side bilateral Equipment Used L3 Reps/Minutes 30 Standing Exercises heel raises Standing Exercise Name heel raises/ toe raises Side bilateral Equipment Used rail Reps/Minutes 30x Comments heavy cues to avoid fwd flexion during toe raises hip ext Standing Exercise Name hip ext Side bilateral Equipment Used rail Reps/Minutes 20 hip abd Standing Exercise Name hip abd Side bilateral Equipment Used rail Reps/Minutes 20 march Standing Exercise Name in place Side bilateral Equipment Used rail prn Reps/Minutes 20x Neuro Re-Education Treatment Balance Activities firm Comments NBOS w/EC, staggered stance B hurdles Comments 1. fwd 8laps: hurdles (6) step thru Self-Care/Home Management Treatment Education Other Education edu to pt and partner re: exercises and improtance of cont HEP at home. Edu to work on posture during exercises. Discussed PT ongoing concern re: balance on bike and discussed that walking is a better exercise and more functional for him w/less danger. Edu that he needs to be doing strength/balance at home at least a few days a week and walking most days of the week. Edu to discuss w/ jacquard loom fixer re: pulmonary rehab. PT-OP-T Assessment and Plan Start: 08/18/21 11:31 Freq: Status: Active Protocol: Document 05/10/22 10:03 [facility] (Rec: 05/10/22 11:19 [facility] [id number]) Physical Therapy Assessment Goals sit to stand Insurance Attorney Goal (LTG) Pt will be able to complete at least 10 sit to stands in 30 sec to show improved strength and funcitonal ability. 11/01-imprvoed to 7 12/13/21: 6.5 reps in 30 sec.( rounds to 7) 01/26-6.5 reps 03/24-7 reps 04/26-no change LTG Duration 05/26 balance Short Term Goal (STG) Pt will be able to score at least 20/ on DGI to show dec risk for falls. 11/01-improved to 17 12/13/20: STG Duration achieved 3/2 to 20 Fdc Goal (LTG) Pt will score at least 22/30 to show dec risk for falls on FGA 03/24-DGI ; FGA /04/26- LTG Duration 05/26 strength Short Term Goal (STG) Pt will be indep w/HEP STG Duration achieved progresssing as able Fdc Goal (LTG) Pt will score at least 4/5 on all LE MMT to show improved strengtht o improve pt's ability to participate in home activities. 09/27-improving 11/01-improved 01/26-improved limited in ext & ER & abd 03/24-improving 04/26-abd and ext limited LTG Duration 05/26 walking Short Term Goal (STG) Pt willb e able to complete 2 min walk test w/o requriing seated rest break at least 160ft to show improved activity tolerance. 09/27-pt having difficulty w/ SOB more over past 2 weeks. Has been having testing done to determine reason 10/25-able to do 180ft but could only go 1.5 min 11/01-215ft but still only able to go 1.5 min 12/13/20: completed 206 ft in 2 min using SPC. STG Duration achieved 12/13 Insurance Attorney Goal (LTG) Pt will be able to complete 6 min walk test with distance of at least 450ft. 01/26-achieved to 576ft progress goal to 800ft in 6 min 03/24-705ft w/able to walk 4 min before 1 min break then walking last min 04/26-able to do full 6 min walk test 802ft. LTG Duration achieved 04/26 Assessment Summary Assessment Pt did well with exercises and partner very receptive to what cues to use and how to cont to maintain pt's strength , balance and activity tolerance. Pt does still require cues for posture. Pt's ambulation did not seem to change since knee injury but he is planning to go to walk in after this. Physical Therapy Plan Frequency and Duration Frequency of Treatment 1-2x/wk Duration of Treatment 1 month Plan of Care Start Date 04/26/22 Plan of Care End Date 05/26/22 Next Visit Focus/Plan Next Note Type Discharge Summary Next Visit Plan review HEP as needed
[2022-05-10 11:24] LABS: Reticulocyte Count, Percent 3.9 % (0.9-2.6)
[2022-05-10 11:26] LABS: Add Manual Diff / Slide Review YES; Hematocrit 33.5 % (41-53); Hemoglobin 11.3 g/dL (13.5-17.5); Mean Corpuscular HGB Conc 33.8 % (30-36); Mean Corpuscular Hemoglobin 41.5 PG (26-34); Platelet Count 127 X10^3/uL (150-400); Red Blood Cell Count 2.73 X10^6/uL (4.5-5.9); Red Cell Distribution Width 19.4 % (11.6-14.8); White Blood Cell Count 6.7 X10^3/uL (4.5-11.0)
[2022-05-10 11:35] LABS: Hemoglobin A1C% w Est Avg Glu 5.5 % (4.0-6.0)
[2022-05-10 11:36] LABS: Alanine Aminotransferase 50 IU/L (<50); Albumin 4.1 g/dL (3.5-5.0); Albumin Globulin Ratio 0.8 (1.0-2.8); Alkaline Phosphatase 46 U/L (38-126); Anisocytosis 2+; Aspartate Aminotransferase 43 IU/L (17-59); BUN Creatinine Ratio 15.7 (6-22); Bilirubin Total 0.7 mg/dL (0.2-1.3); Blood Urea Nitrogen 14 mg/dL (9-20); Calcium 8.3 mg/dL (8.4-10.2); Carbon Dioxide 29 mmol/L (22-32); Chloride 104 mmol/L (98-107); Estimated Glomerular Filt Rate > 60 mL/min (>60); Globulin 4.9 g/dL (1.7-4.1); Glucose 150 mg/dL (80-110); HEMOLYSIS < 15 (0-50); Macrocytosis 3+; Neutrophils Absolute Manual 2613 /uL (3000-5900); Potassium 4.8 mmol/L (3.4-5.1); Sodium 137 mmol/L (137-145); Total Cells Counted 100
--- NOTE | 2022-05-12 09:46 | PT.OTN ---
Current Diagnoses Guillain-[place] syndrome (05/12/22) Muscle weakness (generalized) (05/12/22) Difficulty in walking, not elsewhere classified (05/12/22) Physical Therapy Treatment Note PT-OP-A Visit Information Start: 08/18/21 11:31 Freq: Status: Active Protocol: Document 05/12/22 09:08 [facility] (Rec: 05/12/22 09:46 [facility] [id number]) Out-Patient Physical Therapy Visit Information Visit Information Visit Type Discharge Summary Visit Start Time 09:05 Visit Stop Time 09:45 Total Visit Minutes 40 Visit Number 51 Number of IDENTIFICATION AND RECORDS COMMANDER Visits 0 PT-OP-B Current Condition Start: 08/18/21 11:31 Freq: Status: Active Protocol: Document 08/19/21 07:38 [facility] (Rec: 08/19/21 10:23 [facility] [id number]) Current Condition History of Current Condition Onset Date 1.5 years ago Current Complaints weakness History of Current Condition Pt was diagonosed w/ myelofibrosis which comes w/ low hematocrit and platelets and has slowly dec frequency to 4 weeks ago. He had [place] shot February 08 and developed Guillian [place] Syndrome symptoms a few weeks later. He got his blood count done and was fine and was severe weakness. Severe weakness in legs and some in arms w/no reflexs and some facilitations whcih he doens't have it any more. He had infusions of immunoglobulin and it seemed to help a bit at first. He has an electric WC coming today that he paid for out of pocket that he plans to use when out of the house. He can recover from activity w/5 -10 min of rest. He has some ankle swelling that started aobut 6 months ago but labs have all been normal for possible CHF. Pt reports he gets SOB and weakness. He has postural hypotension. Pt reports some gradual minor memory loss. Pt has B hip replacement and a microdiscectomy L4-5. No falls . Pt sees Oncology every 3 weeks and gets a subcutaneous shot every 3 weeks which inc red blood cells. Prior to these diagnoses (1.5 years ago ), he was sailing, biking, tennis, hiking and walking. Pt reports he can cut about 3 roses then has to sit down d/t fatigue. His chores are very short. Indep w/ADLs. Can only walk 80ft before he has to rest. Prior Treatments and Tests No PT since all of this started Treatment Goals Patient/Caregiver Goals inc tolerance w/walking, inc endurance, be able to get up/ down from ground w/o outside support PT-OP-C Subjective Start: 08/18/21 11:31 Freq: Status: Active Protocol: Document 05/12/22 09:08 [facility] (Rec: 05/12/22 09:46 [facility] [id number]) OP-PT Subjective Patient Comments Patient Comments Pt reports he sees an ENT to see what is causing his vertigo PT-OP-D Balance Start: 08/18/21 11:31 Freq: Status: Active Protocol: Document 08/19/21 07:38 [facility] (Rec: 08/19/21 10:23 [facility] [id number]) Balance Tests Dunn Balance Test Dunn Balance Test Score 46/56 PT-OP-E Functional Tests Start: 08/18/21 11:31 Freq: Status: Active Protocol: Document 05/12/22 09:08 [facility] (Rec: 05/12/22 09:46 [facility] [id number]) Functional Tests 30 Second Sit to Stand Test Score 7 reps in 30 sec Comments hands across chest, 18 chair Five Times Sit to Stand Test Score 20 sec Functional Gait Assessment Score 16 PT-OP-G Mobility & Gait Start: 08/18/21 11:31 Freq: Status: Active Protocol: Document 08/19/21 07:38 [facility] (Rec: 08/19/21 10:23 [facility] [id number]) OP Mobility Evaluation Bed Mobility Supine to and from Sit indep Transfers Sit to Stand able to sit to stand indep - chooses to use UEs but can w/o OP Gait Assessment Comments Gait Comments Amb with slow pace and dec push off PT-OP-M Strength Start: 08/18/21 11:31 Freq: Status: Active Protocol: Document 05/12/22 09:08 [facility] (Rec: 05/12/22 09:46 [facility] [id number]) Hip Strength Hip Manual Muscle Testing Right Flexion (L2) 4+ Good+ Extension (S1) 3+ Fair+ Abduction 4 Good External Rotation 4+ Good+ Internal Rotation 5 Normal Left Flexion (L2) 4+ Good+ Extension (S1) 3+ Fair+ Abduction 4 Good External Rotation 4 Good Internal Rotation 5 Normal Comments if cued can do pure abd Knee Strength Knee Manual Muscle Testing Right Flexion (S2) 5 Normal Extension (L3) 5 Normal Left Flexion (S2) 5 Normal Extension (L3) 5 Normal Ankle/Foot Strength Ankle and Foot Manual Muscle Testing Right Dorsiflexion (L4) 5 Normal Plantarflexion (S1) 5 Normal Comments PF tested seated B Left Dorsiflexion (L4) 4+ Good+ Plantarflexion (S1) 4+ Good+ PT-OP-Q Treatments Start: 08/18/21 11:31 Freq: Status: Active Protocol: Document 05/12/22 09:08 [facility] (Rec: 05/12/22 09:46 [facility] [id number]) Therapeutic Exercises Supine Exercises SLR Supine Exercise Name cues for core Side bilateral Reps/Minutes x10 Comments pt unable to achieve full knee ext bridge Side bilateral Reps/Minutes 8x5SH Comments cues for R glute engagement Sidelying Exercises reverse clam Side bilateral Equipment Used lvl 1 Reps/Minutes x10 abd Sidelying Exercise Name hip Side bilateral Reps/Minutes x10 clamshell Side bilateral Equipment Used lvl 1 TB Reps/Minutes x10 Sitting Exercises Stretch Sitting Exercise Name HS stretch Side bilateral Reps/Minutes x1' ea Adduction Sitting Exercise Name Hip Add Side bilateral Equipment Used small ball Reps/Minutes 10x 10SH DF Sitting Exercise Name 1. dorsiflexion/PF Side bilateral Reps/Minutes 30 ea Knee flex Side bilateral Equipment Used Lvl 3 Reps/Minutes 20 ea knee ext Side bilateral Equipment Used L3 Reps/Minutes 15 ea march Side bilateral Equipment Used L3 Reps/Minutes 30 hip ER Side bilateral Equipment Used L3 Reps/Minutes 30 Standing Exercises heel raises Standing Exercise Name heel raises/ toe raises Side bilateral Equipment Used rail Reps/Minutes 30x Comments heavy cues to avoid fwd flexion during toe raises hip ext Standing Exercise Name hip ext Side bilateral Resistance L1 Equipment Used rail Reps/Minutes 10 hip abd Standing Exercise Name hip abd Side bilateral Resistance L1 Equipment Used rail Reps/Minutes 20 march Standing Exercise Name in place Side bilateral Equipment Used rail prn Reps/Minutes 15 ea PT-OP-T Assessment and Plan Start: 08/18/21 11:31 Freq: Status: Active Protocol: Document 05/12/22 09:08 [facility] (Rec: 05/12/22 09:46 [facility] [id number]) Physical Therapy Assessment Goals sit to stand Custodial Goal (LTG) Pt will be able to complete at least 10 sit to stands in 30 sec to show improved strength and funcitonal ability. 11/01-imprvoed to 7 12/13/21: 6.5 reps in 30 sec.( rounds to 7) 01/26-6.5 reps 03/24-7 reps 04/26-no change 05/12-no change LTG Duration 05/26 balance Short Term Goal (STG) Pt will be able to score at least / on DGI to show dec risk for falls. 11/01-improved to 17 12/13/20: STG Duration achieved /2 to 20 Zigzag Topstitcher Goal (LTG) Pt will score at least to show dec risk for falls on FGA 03/24-DGI ; FGA 04/26- 05/12-16 LTG Duration 05/26 strength Short Term Goal (STG) Pt will be indep w/HEP STG Duration achieved progresssing as able Custodial Goal (LTG) Pt will score at least 4/5 on all LE MMT to show improved strengtht o improve pt's ability to participate in home activities. 09/27-improving 11/01-improved 01/26-improved limited in ext & ER & abd 03/24-improving 04/26-abd and ext limited 05/12-ext still imited LTG Duration 05/26 walking Short Term Goal (STG) Pt willb e able to complete 2 min walk test w/o requriing seated rest break at least 160ft to show improved activity tolerance. 09/27-pt having difficulty w/ SOB more over past 2 weeks. Has been having testing done to determine reason 10/25-able to do 180ft but could only go 1.5 min 11/01-215ft but still only able to go 1.5 min 12/13/20: completed 206 ft in 2 min using SPC. STG Duration achieved 12/13 Zigzag Topstitcher Goal (LTG) Pt will be able to complete 6 min walk test with distance of at least 450ft. 01/26-achieved to 576ft progress goal to 800ft in 6 min 03/24-705ft w/able to walk 4 min before 1 min break then walking last min 04/26-able to do full 6 min walk test 802ft. LTG Duration achieved 04/26 Assessment Summary Assessment Pt has made excellent progress in therapy over the past 9 months but is now starting to plateau with progress. He is indep w/HEP and partner has been trained how to help him at home w/exercises along w/ encouraged to go for walks together. He is now DC to HEP Physical Therapy Plan Discharge Physical Therapy Discharge Reasons Plateau in Progress
== END 2022-05-13 08:47 ==
LOC: PHYS 09:00
PROVIDERS: Internal Medicine Medical Oncology; Family Provider Family Medicine; PCP Family Medicine; Referring Provider Family Medicine; Visit Provider Family Medicine
DX: G61.0 Guillain-Barre syndrome (principal); M62.81 Muscle weakness (generalized); R26.2 Difficulty in walking, not elsewhere classified
CPT/HCPCS: 36415; 80053; 83036; 85007; 85025; 85045; 97110; 97112; 97116; 97162; 97535

== ENCOUNTER 2022-06-08 14:30 | Outpatient (RCR) | payer MEDICARE, OTHER, SELFPAY ==
[2021-07-12 21:31] VITALS: BMI 29.0
--- NOTE | 2022-06-06 15:49 | PT.OIE ---
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 Physical Therapy Initial Evaluation PT-OP-A Visit Information Start: 06/05/22 20:24 Freq: Status: Active Protocol: Document 06/06/22 14:33 [facility] (Rec: 06/06/22 15:35 [facility] [id number]) Out-Patient Physical Therapy Visit Information Visit Information Visit Type Initial Evaluation Visit Start Time 14:30 Visit Stop Time 15:15 Total Visit Minutes 45 Visit Number 1 PT-OP-B Current Condition Start: 06/05/22 20:24 Freq: Status: Active Protocol: Document 06/06/22 14:33 [facility] (Rec: 06/06/22 15:35 [facility] [id number]) Current Condition History of Current Condition Onset Date 2-3 months Current Complaints dizzy History of Current Condition Does have orthostatic hypotension (especially from the recliner). 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 Uses a SPC, does have a manual chair. Personal Factors Other Personal Factors That May Effect GBS, hx microdiskectomy, Therapy/Recovery bilateral hip replacmeents, anemia (type of leukemia) PT-OP-C Subjective Start: 06/05/22 20:24 Freq: Status: Active Protocol: Document 06/06/22 15:35 [facility] (Rec: 06/06/22 15:47 AMB [id number]) Patient Questionnaires Dizziness Handicap Inventory DHI Score 38 DHI Functional Impairment 20 to 39% Impaired (Score 20- 39) PT-OP-O Vestibular Start: 06/05/22 20:24 Freq: Status: Active Protocol: Document 06/06/22 14:30 [facility]B (Rec: 06/06/22 15:49 AMB [id number]) Vestibular Assessment Visual Testing Smooth Pursuits Horizontal WFL Smooth Pursuits Vertical WFL Saccades Horizontal WFL Saccades Vertical WFL Positional Testing Walsh-Hallpike Positive Right,Upbeating,< 60 Seconds PT-OP-T Assessment and Plan Start: 06/05/22 20:24 Freq: Status: Active Protocol: Document 06/06/22 15:35 [facility] (Rec: 06/06/22 15:47 AMB [id number]) Physical Therapy Assessment Rehab Potential Rehabilitation Potential Good Evaluation Complexity Number of Personal Factors/Comorbidities 1-2 Number of Body Systems Impaired 1-2 Clinical Presentation at Evaluation Stable Impairments Impairments Vestibular Goals Two Impairment [place] Short Term Goal (STG) Goldy will have no dizziness or nystagmus with the [place] manuever STG Duration 4 weeks One Impairment Dizziness Short Term Goal (STG) Goldy will look up without dizziness. STG Duration 4 weeks Penitentiary Goal (LTG) Goldy will roll over in bed without dizziness. LTG Duration 6 weeks Assessment Summary Assessment Goldy attends physical therapy with signs and symptoms consistent with R posterior canal BPPV that is complicated by his orthostatic hypotension and GBS. He had nystagmus and dizziness with the first position of the [place] manuever but that was not seen upon the second Edmar . He will benefit from further physical therapy to make sure that his BPPV is cleared and to further address his orthostatic sx if necessary. Physical Therapy Plan Frequency and Duration Frequency of Treatment 2x/Week Duration of Treatment 6 weeks Plan of Care Start Date 06/06/22 Plan of Care End Date 07/21/22 Therapeutic Interventions Therapeutic Interventions Balance Training,Canalithic Repositioning,Gait Training, Home Exercise Program,Manual Therapy,Neuromuscular Re- education,Therapeutic Activities,Therapeutic Exercises,Vestibular Rehabilitation Next Visit Focus/Plan Next Note Type Treatment Note Next Visit Plan Reassess Shavon Huntley
--- NOTE | 2022-06-06 15:51 | PT.OPPOC ---
Physical, Occupational & Speech Therapy At [facility] Current Diagnoses Benign paroxysmal vertigo, right ear (06/06/22) Visit Care Team Role Provider Type Catalino Herrera MD Family Provider Physician Primary Care Provider Specialty: Family Practice Address: [address] [place] [id number] Email: [email or web address] Ramakrishna Tracy MD Attending Provider Physician Referring Provider Specialty: Ear, Nose, Throat Address: [address] [place] [address] Email: [email or web address] Plan Of Care PT-OP-T Assessment and Plan Start: 06/05/22 20:24 Freq: Status: Active Protocol: Document 06/06/22 15:35 AMB (Rec: 06/06/22 15:47 AMB [id number]) Physical Therapy Assessment Rehab Potential Rehabilitation Potential Good Evaluation Complexity Number of Personal Factors/Comorbidities 1-2 Number of Body Systems Impaired 1-2 Clinical Presentation at Evaluation Stable Impairments Impairments Vestibular Goals Two Impairment Edmar Short Term Goal (STG) Goldy will have no dizziness or nystagmus with the Edmar manuever STG Duration 4 weeks One Impairment Dizziness Short Term Goal (STG) Goldy will look up without dizziness. 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 LTG Duration 6 weeks Assessment Summary Assessment Goldy attends physical therapy with signs and symptoms consistent with R posterior canal BPPV that is complicated by his orthostatic hypotension and GBS. He had nystagmus and dizziness with the first position of the Edmar manuever but that was not seen upon the second Edmar . He will benefit from further physical therapy to make sure that his BPPV is cleared and to further address his orthostatic sx if necessary. Physical Therapy Plan Frequency and Duration Frequency of Treatment 2x/Week Duration of Treatment 6 weeks Plan of Care Start Date 06/06/22 Plan of Care End Date 07/21/22 Therapeutic Interventions Therapeutic Interventions Balance Training,Canalithic Repositioning,Gait Training, Home Exercise Program,Manual Therapy,Neuromuscular Re- education,Therapeutic Activities,Therapeutic Exercises,Vestibular Rehabilitation Next Visit Focus/Plan Next Note Type Treatment Note Next Visit Plan Reassess Shavon Huntley Plan of Care Dates Plan of Care Start Date 06/06/22 Plan of Care End Date 07/21/22 Electronically Signed by: Jodi Quinteros, PT 06/06/22 [id number] If you are in agreement with this Plan of Care, please return a signed and dated copy. I have reviewed this Plan of Care and certify that the skilled therapy services above are required to meet the patient?s needs. Physician Signature Date Printed Name and Credentials Clinical Instructor Signature Printed Name and Credentials
--- NOTE | 2022-06-08 15:22 | PT.OTN ---
Current Diagnoses Benign paroxysmal vertigo, right ear (06/08/22) Physical Therapy Treatment Note PT-OP-A Visit Information Start: 06/05/22 20:24 Freq: Status: Active Protocol: Document 06/08/22 15:05 AMB (Rec: 06/08/22 15:22 AMB [id number]) Out-Patient Physical Therapy Visit Information Visit Information Visit Type Treatment Note Visit Start Time 14:30 Visit Stop Time 14:45 Total Visit Minutes 15 Visit Number 2 PT-OP-B Current Condition Start: 06/05/22 20:24 Freq: Status: Active Protocol: Document 06/06/22 14:33 AMB (Rec: 06/06/22 15:35 AMB [id number]) Current Condition History of Current Condition Onset Date 2-3 months Current Complaints dizzy History of Current Condition Does have orthostatic hypotension (especially from the recliner). 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 Uses a SPC, does have a manual chair. Personal Factors Other Personal Factors That May Effect GBS, hx microdiskectomy, Therapy/Recovery bilateral hip replacmeents, anemia (type of leukemia) PT-OP-C Subjective Start: 06/05/22 20:24 Freq: Status: Active Protocol: Document 06/08/22 15:05 AMB (Rec: 06/08/22 15:22 AMB [id number]) OP-PT Subjective Patient Comments Patient Comments Goldy attends stating that his sx have resolved. PT-OP-O Vestibular Start: 06/05/22 20:24 Freq: Status: Active Protocol: Document 06/06/22 14:30 AMB (Rec: 06/06/22 15:49 AMB [id number]) Vestibular Assessment Visual Testing Smooth Pursuits Horizontal WFL Smooth Pursuits Vertical WFL Saccades Horizontal WFL Saccades Vertical WFL Positional Testing Juanjo-Hallpike Positive Right,Upbeating,< 60 Seconds PT-OP-Q Treatments Start: 06/05/22 20:24 Freq: Status: Active Protocol: Document 06/08/22 15:05 AMB (Rec: 06/08/22 15:22 AMB [id number]) Canalithic Repositioning BPPV Treatment Edmar Affected Canal(s) Rechecked R Stratford-Hallpike Comments negative PT-OP-T Assessment and Plan Start: 06/05/22 20:24 Freq: Status: Active Protocol: Document 06/08/22 15:05 AMB (Rec: 06/08/22 15:22 AMB [id number]) Physical Therapy Assessment Goals Two Impairment Edmar Short Term Goal (STG) Goldy will have no dizziness or nystagmus with the Edmar manuever STG Duration MET One Impairment Dizziness Short Term Goal (STG) Goldy will look up without dizziness. 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 LTG Duration MET Assessment Summary Assessment Goldy had no nystagmus or dizziness with Edmar. States symptoms are resolved, given handout for home treatment. Physical Therapy Plan Discharge Physical Therapy Discharge Reasons Goals Met
--- NOTE | 2022-07-01 10:31 | PT.OPDS ---
Current Diagnoses Benign paroxysmal vertigo, right ear (06/08/22) Visit Care Team Role Provider Type Catalino Herrera MD Family Provider Physician Primary Care Provider Specialty: Family Practice Address: [address] [place] [address], [id number] Email: [email or web address] Ramakrishna Tracy MD Attending Provider Physician Referring Provider Specialty: Ear, Nose, Throat Address: [address] [place] [address], [id number] Email: [email or web address] Visit Number Visit Number 2 Discharge Summary PT-OP-B Current Condition Start: 06/05/22 20:24 Freq: Status: Active Protocol: Document 06/06/22 14:33 AMB (Rec: 06/06/22 15:35 AMB [id number]) Current Condition History of Current Condition Onset Date 2-3 months Current Complaints dizzy History of Current Condition Does have orthostatic hypotension (especially from the recliner). 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 Uses a SPC, does have a manual chair. Personal Factors Other Personal Factors That May Effect GBS, hx microdiskectomy, Therapy/Recovery bilateral hip replacmeents, anemia (type of leukemia) PT-OP-C Subjective Start: 06/05/22 20:24 Freq: Status: Active Protocol: Document 06/08/22 15:05 AMB (Rec: 06/08/22 15:22 AMB [id number]) OP-PT Subjective Patient Comments Patient Comments Goldy attends stating that his sx have resolved. PT-OP-O Vestibular Start: 06/05/22 20:24 Freq: Status: Active Protocol: Document 06/06/22 14:30 AMB (Rec: 06/06/22 15:49 AMB [id number]) Vestibular Assessment Visual Testing Smooth Pursuits Horizontal WFL Smooth Pursuits Vertical WFL Saccades Horizontal WFL Saccades Vertical WFL Positional Testing Baker-Hallpike Positive Right,Upbeating,< 60 Seconds PT-OP-T Assessment and Plan Start: 06/05/22 20:24 Freq: Status: Active Protocol: Document 07/01/22 10:23 AMB (Rec: 07/01/22 10:31 AMB [id number]) Physical Therapy Assessment Goals Two Impairment Edmar Short Term Goal (STG) Goldy will have no dizziness or nystagmus with the Edmar manuever STG Duration MET One Impairment Dizziness Short Term Goal (STG) Goldy will look up without dizziness. STG Duration MET Correction Goal (LTG) Goldy will roll over in bed without dizziness. LTG Duration MET Assessment Summary Assessment Goldy has met all of his goals at his last visit and has not called the office with any lingering symptoms therefore is discharged.
== END 2022-07-06 14:40 ==
LOC: PHYS 14:30
PROVIDERS: Family Provider Family Medicine; PCP Family Medicine; Referring Provider Otolaryngology; Visit Provider Otolaryngology
DX: H81.11 Benign paroxysmal vertigo, right ear (principal)
CPT/HCPCS: 95992; 97161

== ENCOUNTER → 2022-07-22 16:16 | Outpatient (CLI) | payer MEDICARE, OTHER, SELFPAY ==
[2021-07-12 21:31] VITALS: BMI 29.0
--- NOTE | 2022-07-22 16:19 | DI.RAD.S_ITS ---
PROCEDURE: XR FINGER LT MIN 2V INDICATIONS: Left middle finger pain TECHNIQUE: PA hand, 2 views of the middle finger acquired. COMPARISON: None. FINDINGS: Bones: No acute fractures or dislocations. No suspicious bony lesions. Mild to moderate background degenerative changes Soft tissues: No suspicious soft tissue calcifications. IMPRESSION: No acute osseous abnormality. If clinical suspicion and/or symptoms persist, additional imaging with repeat plain films, or advanced imaging (e.g. CT, MRI) may be helpful for further assessment. Dictated by: Augustus Weber M.D. on 07/22/2022 at 16:47 Approved by: Augustus Weber M.D. on 07/22/2022 at 16:49
--- NOTE | 2022-07-22 16:19 | DI.RAD.S_ITS ---
PROCEDURE: XR CHEST 2V INDICATIONS: cough , shortness of breath TECHNIQUE: 2 views of the chest were acquired. COMPARISON: [facility], CR, XR CHEST 2V, 10/11/2021, 11:38. FINDINGS: Surgical changes and devices: None. Lungs and pleura: Lungs are clear. No pleural effusions or pneumothorax. Mediastinum: Mediastinal contours are normal. Heart size is normal. Bones and chest wall: No suspicious bony abnormalities. Soft tissues appear unremarkable. IMPRESSION: No acute process. Dictated by: Jennifer Taylor M.D. on 07/22/2022 at 16:42 Approved by: Jennifer Taylor M.D. on 07/22/2022 at 16:43
== END ==
PROVIDERS: Family Provider Family Medicine; PCP Family Medicine; Referring Provider Nurse Practitioner Family; Visit Provider Nurse Practitioner Family
DX: D46.9 Myelodysplastic syndrome, unspecified (principal); M79.645 Pain in left finger(s); R05.9 Cough, unspecified; R06.02 Shortness of breath
CPT/HCPCS: 71046; 73140

== ENCOUNTER 2022-08-10 10:56 | Emergency (ER) | payer MEDICARE, OTHER, SELFPAY ==
[2021-07-12 21:31] VITALS: BMI 29.0
[2022-08-10 11:16] VITALS: BP 116/62; PULSE 89; RESP 28; TEMP 36.6; O2SAT 95
--- NOTE | 2022-08-10 11:21 | DI.RAD.S_ITS ---
PROCEDURE: XR CHEST 1V INDICATIONS: Flu like symptoms TECHNIQUE: One view of the chest was acquired. COMPARISON: [facility], CR, XR CHEST 2V, 07/22/2022, 16:23. [facility], CR, XR CHEST 1V, 07/12/2021, 15:50. FINDINGS: Surgical changes and devices: None. Lungs and pleura: Lungs are clear. No pleural effusions or pneumothorax. Mediastinum: Cardiac silhouette is at the upper limit of normal in size. Mediastinal and hilar contours appear similar to before. Bones and chest wall: No suspicious bony lesions. Overlying soft tissues appear unremarkable. IMPRESSION: No acute cardiopulmonary abnormality. Dictated by: Augustus Bhatia M.D. on 08/10/2022 at 11:58 Approved by: Augustus Bhatia M.D. on 08/10/2022 at 12:00
--- NOTE | 2022-08-10 12:14 | ED.SOB ---
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 He says he has been short of breath for about 3 weeks. He gets around mostly by wheelchair but does ambulate some. He said he would previously was able to walk about 60 ft than 40 ft in out of 20. He denies any orthopnea. No fever or chills. He denies any chest pain. He is obviously tachypneic but able to speak in full sentences. He is not hypoxic. He did not receive his IVIG infusion today. Related Data Home Medications Medication Instructions Recorded Confirmed ascorbic acid (vitamin C) 500 mg 500 mg PO Q3D 03/17/21 07/22/22 tablet (Vitamin C) garlic 300 mg PO Q3D 03/17/21 07/22/22 multivitamin 1 cap PO Q3D 03/17/21 07/22/22 luspatercept-aamt 75 mg 75 mg SUBCUT Q3W 07/08/21 07/22/22 subcutaneous solution (Reblozyl) glucosamine sulfate 500 mg tablet 1,000 mg PO DAILY 07/12/21 07/22/22 (Glucosamine) magnesium 1 tab PO DAILY 07/12/21 07/22/22 omega-3 fatty acids 1 cap PO DAILY 07/12/21 07/22/22 albuterol 90 mcg/actuation aerosol mcg inhalation 05/10/22 07/22/22 inhaler Previous Rx's Medication Instructions Recorded sodium bicarbonate 650 mg tablet 325 mg PO BID #90 tabs 06/02/21 tamsulosin 0.4 mg capsule (Flomax) 0.4 mg PO DAILY #90 caps 11/23/21 mupirocin 2 % topical ointment 1 applic topical BID #22 grams 05/10/22 furosemide 20 mg tablet (Lasix) 20 mg PO DAILY #4 tabs 08/10/22 Allergies Allergy/AdvReac Type Severity Reaction Status Date / Time No Known Drug Allergies Allergy Verified 07/22/22 16:19 Review of Systems Review of Systems Narrative: GENERAL: Denies chills, fatigue, malaise, fever, sweats, travel HEENT: Denies sinus pain, ear pain, sore throat, difficulty swallowing, neck pain RESPIRATORY: See HPI CARDIOVASCULAR: Denies chest pain, palpitations, orthopnea, edema GASTROINTESTINAL: Denies nausea, vomiting, abdominal pain, diarrhea, constipation, melena. : Denies dysuria, frequency, incontinence, hematuria, urinary retention, flank pain. MUSCULOSKELETAL: Denies weakness, joint pain, or bony pain SKIN: No rash, no erythema, no pruritus NEUROLOGIC: Denies weakness, dizziness, headache, numbness, change in speech, confusion PSYCHIATRIC: No concerning psychosocial issues. 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) Vision disorder Surgical History History of hip replacement, total Hx of cystoscopy (05/10/21) Family History Father History of heart disease Mother Congestive heart failure Brother Cancer Sister Congestive heart failure Social History household members: spouse Smoking Status: Never smoker second hand exposure: No alcohol intake: current substance use type: does not use 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 RESPIRATORY: Tachypnea no conversational dyspnea clear breath sounds no wheezing no right ABDOMEN: Soft, nontender. Normoactive bowel sounds all 4 quadrants. No guarding or rebound. EXTREMITIES: Normal range of motion, no clubbing or edema. Neurovascularly intact NEUROLOGICAL: At baseline generally weak more in lower extremities and upper extremities SKIN: Warm, dry, no laceration, no petechiae, no rashes or lesions. Course Orders Ordered: ED Orders 08/10/22 11:21 XR chest 1V Stat EKG-12 Lead Stat Measure peak expiratory flow ONCE RT Consult Eval and Treat Now 08/10/22 12:01 COVID19 -Nasal RAPID/Pre-Proc Stat 08/10/22 12:15 Complete Blood Count AUTO DIFF Stat Comprehensive Metabolic Panel Stat Lactate (Lactic Acid) Stat Lipase Stat NT-proBNP (BNP-Adult 18+) Stat Prothrombin Time INR Stat Troponin & CK Cardiac Panel Stat 08/10/22 12:16 CT angio chest PE protocol Stat 08/10/22 12:17 EKG-12 Lead Stat Discontinued Medications Furosemide (Furosemide 40 Mg/4 Ml Vial) 20 mg IV NOW ONE Stop: 08/10/22 13:54 Last Admin: 08/10/22 14:20 Dose: 20 mg Documented By: ANUPAMA Sodium Chloride (Normal Saline 0.9%) 1,000 mls @ 150 mls/hr IV CONT JORGE Last Infusion: 08/10/22 16:00 Dose: 0 mls/hr Documented By: Infusion: 08/10/22 15:55 Dose: 0 mls/hr Documented By: Admin: 08/10/22 12:47 Dose: 150 mls/hr Documented By: SUSANA Vital Signs Vital signs: Vital Signs - 8 hr 08/10/22 12:15 08/10/22 12:15 08/10/22 12:36 Pulse Rate 90 82 Respiratory Rate 24 Blood Pressure 125/80 Pulse Oximetry 99 08/10/22 12:38 08/10/22 12:38 08/10/22 13:00 Pulse Rate 113 H Respiratory Rate 26 H Blood Pressure 120/79 112/60 Pulse Oximetry 98 08/10/22 13:00 Pulse Rate 88 Respiratory Rate 27 H Blood Pressure Pulse Oximetry 100 MDM - SOB/Dyspnea Lab Data Result diagrams: 08/10/22 12:15 08/10/22 12:15 Labs: Lab Results 08/10/22 08/10/22 08/10/22 Range/Units 12:01 12:15 12:15 WBC 9.7 (4.5-11.0) X10^3/uL RBC 2.85 L (4.5-5.9) X10^6/uL Hgb 11.4 L (13.5-17.5) g/dL Hct 33.7 L (41-53) % MCV 118.4 H (80-100) fL MCH 40.1 H (26-34) PG MCHC 33.9 (30-36) % RDW 17.4 H (11.6-14.8) % Plt Count 116 L (150-400) X10^3/uL Neut % (Auto) Not Reportable Lymph % (Auto) Not Reportable Upton % (Auto) Not Reportable Eos % (Auto) Not Reportable Baso % (Auto) Not Reportable Lymph # (Auto) Not Reportable Upton # (Auto) Not Reportable Baso # (Auto) Not Reportable Total Counted 100 Seg Neutrophils % 40.0 (38-70) % Band Neutrophils % 2.0 L (3-7) % Lymphocytes % (Manual) 10.0 L (25-45) % Atypical Lymphs % 1.0 H ( - 0) % Monocytes % (Manual) 42.0 H (2-11) % Eosinophils % (Manual) 2.0 (2-4) % Metamyelocytes % 1.0 H (-0) % Myelocytes % 2.0 H (-0) % Neutrophils # (Manual) 4074 (3997-2836) /uL Nucleated RBCs 1 H ( - 0) #/Diff Smudge Cells 1+ H RBC Morphology See below Poikilocytosis 1+ H Anisocytosis 2+ H PT 19.8 H (10.1-12.7) SECONDS INR 1.7 H (0.9-1.3) Sodium (137-145) mmol/L Potassium (3.4-5.1) mmol/L Chloride (98-107) mmol/L Carbon Dioxide (22-32) mmol/L BUN (9-20) mg/dL Creatinine (0.66-1.25) mg/dL Estimated GFR (>60) mL/min BUN/Creatinine Ratio (6-22) Glucose (80-110) mg/dL Lactate (0.7-2.1) mmol/L Calcium (8.4-10.2) mg/dL Total Bilirubin (0.2-1.3) mg/dL AST (17-59) IU/L ALT (<50) IU/L Alkaline Phosphatase (38-126) U/L Total Creatine Kinase (55-170) U/L CK-MB (CK-2) CK-MB (CK-2) Rel Index Troponin I (0.01-0.034) ng/mL NT-Pro-B Natriuret Pep (<450) pg/mL Total Protein (6.3-8.2) g/dL Albumin (3.5-5.0) g/dL Globulin (1.7-4.1) g/dL Albumin/Globulin Ratio (1.0-2.8) Lipase (23-300) U/L SARS-CoV-2 (PCR) Negative (Negative) 08/10/22 08/10/22 Range/Units 12:15 12:15 WBC (4.5-11.0) X10^3/uL RBC (4.5-5.9) X10^6/uL Hgb (13.5-17.5) g/dL Hct (41-53) % MCV (80-100) fL MCH (26-34) PG MCHC (30-36) % RDW (11.6-14.8) % Plt Count (150-400) X10^3/uL Neut % (Auto) Lymph % (Auto) Upton % (Auto) Eos % (Auto) Baso % (Auto) Lymph # (Auto) Upton # (Auto) Baso # (Auto) Total Counted Seg Neutrophils % (38-70) % Band Neutrophils % (3-7) % Lymphocytes % (Manual) (25-45) % Atypical Lymphs % ( - 0) % Monocytes % (Manual) (2-11) % Eosinophils % (Manual) (2-4) % Metamyelocytes % (-0) % Myelocytes % (-0) % Neutrophils # (Manual) (5370-9122) /uL Nucleated RBCs ( - 0) #/Diff Smudge Cells RBC Morphology Poikilocytosis Anisocytosis PT (10.1-12.7) SECONDS INR (0.9-1.3) Sodium 135 L (137-145) mmol/L Potassium 4.4 (3.4-5.1) mmol/L Chloride 101 (98-107) mmol/L Carbon Dioxide 27 (22-32) mmol/L BUN 15 (9-20) mg/dL Creatinine 1.12 (0.66-1.25) mg/dL Estimated GFR > 60 (>60) mL/min BUN/Creatinine Ratio 13.4 (6-22) Glucose 129 H (80-110) mg/dL Lactate 1.5 (0.7-2.1) mmol/L Calcium 8.1 L (8.4-10.2) mg/dL Total Bilirubin 1.0 (0.2-1.3) mg/dL AST 26 (17-59) IU/L ALT 31 (<50) IU/L Alkaline Phosphatase 33 L (38-126) U/L Total Creatine Kinase < 20 L (55-170) U/L CK-MB (CK-2) TNP CK-MB (CK-2) Rel Index TNP Troponin I < 0.012 (0.01-0.034) ng/mL NT-Pro-B Natriuret Pep 1000 H (<450) pg/mL Total Protein 7.4 (6.3-8.2) g/dL Albumin 3.6 (3.5-5.0) g/dL Globulin 3.8 (1.7-4.1) g/dL Albumin/Globulin Ratio 0.9 L (1.0-2.8) Lipase 56 (23-300) U/L SARS-CoV-2 (PCR) (Negative) Imaging Data Chest x-ray: Radiologist's Impression: Goldy Arechiga Gracia MR#: [id number] : 1940 Acct:[id number] Age/Sex: 82 / M Date of Service: 08/10/22 Loc: ED Accession Number: [id number] ?? Procedure: XR chest 1V Ordering Provider: Di Rizo D.O. PROCEDURE:? XR CHEST 1V ? INDICATIONS:? Flu like symptoms ? TECHNIQUE:? One view of the chest was acquired.? ? COMPARISON:? [facility], CR, XR CHEST 2V, 07/22/2022, 16:23.? [facility], CR, XR CHEST 1V, 07/12/2021, 15:50. ? FINDINGS:? ? Surgical changes and devices:? None.? ? Lungs and pleura:? Lungs are clear.? No pleural effusions or pneumothorax.? ? Mediastinum:? Cardiac silhouette is at the upper limit of normal in size.? Mediastinal and hilar contours appear similar to before. ? Bones and chest wall:? No suspicious bony lesions.? Overlying soft tissues appear unremarkable.? ? IMPRESSION:? No acute cardiopulmonary abnormality. ? ? Dictated by: Augustus Bhatia M.D. on 08/10/2022 at 11:58 ? ? Approved by: Augustus Bhatia M.D. on 08/10/2022 at 12:00 ? CT scan - chest: Radiologist's Impression: Goldy Arechiga MR#: [id number] : 1940 Acct:[id number] Age/Sex: 82 / M Date of Service: 08/10/22 Loc: ED Accession Number: [id number] ?? Procedure: CT angio chest PE protocol Ordering Provider: Di Rizo D.O. PROCEDURE:? CT ANGIO CHEST PE PROTOCOL ? INDICATIONS:? hypoxia ? TECHNIQUE:? After the administration of intravenous contrast, 2 mm thick sections acquired from the pulmonary apices to the posterior costophrenic angles.? 3-dimensional maximum intensity projection (MIP) coronal and sagittal reformats were then acquired through the thorax.? For radiation dose reduction, the following was used:? automated exposure control, adjustment of mA and/or kV according to patient size.? ? COMPARISON:? [facility], CT, CT CHEST ABD PEL W CON, 12/06/2021, 14:36. ? FINDINGS:? Image quality:? Excellent.? ? Pulmonary arteries:? Pulmonary arteries are normal in size, and demonstrate no intraluminal filling defects to suggest central pulmonary embolism.? ? Lungs and pleura:? Scarring/atelectasis in posterior and lateral aspect of right lung base is again seen unchanged from prior study.? Mild atelectasis at left lung base is also noted.? Stable appearing nodular thickening in posterior right upper lobe adjacent to major fissure and measures 4 mm in size unchanged from prior study series 5, image 107.? Previously described 3 mm right upper lobe nodule in lateral right upper lobe is not definitely seen.? Mild emphysematous changes are noted.? No pleural effusions or pneumothorax.? Central and peripheral airways are patent.? ? Mediastinum:? Heart size is normal, without pericardial effusion.? Again noted is mediastinal lymphadenopathy measures up to 1.1 cm in size in precarinal space and 1 cm in size in subcarinal space unchanged from previous study.? Mild atherosclerotic calcifications are seen in coronary vessels and thoracic aorta.? Thoracic aorta is normal in caliber and enhancement.? Esophagus is normal in caliber, without hiatal hernia.? ? Bones and chest wall:? No suspicious bony lesions.? Ribs and thoracic spine appear intact throughout.? Thyroid gland is within normal limits.? No axillary or supraclavicular adenopathy.? ? Abdomen:? There is splenomegaly.? Visualized portion of liver shows no gross abnormality. ? IMPRESSION:? 1. No evidence of pulmonary emboli.? No thoracic aortic aneurysm or dissection. 2.? Mild COPD.? Chronic appearing scarring/atelectasis in posterior lateral right lung base.? Stable benign-appearing 4 mm nodular thickening involving major fissure on the right side.? No new pulmonary nodule or mass.? No pleural effusion or pneumothorax.? Airway is patent. 3. Stable chronic appearing mild mediastinal lymphadenopathy.? Mild atherosclerotic disease.? 4. Splenomegaly.? ? Dictated by: William Mensah M.D. on 08/10/2022 at 12:40 ?? ECG Data Interpretation: EKG 1. Normal sinus rhythm rate 94 MT interval 186 QRS 144 QTC 492 right bundle-branch block noted no ST changes EKG 2: Sinus rhythm rate 86 MT interval 178 QRS 144 QTC well no her bundle branch block noted ST changes similar to previous EKG 3. Sinus rhythm similar to prior MDM Narrative Medical decision making narrative: Patient is obviously short of breath. He is found have an elevated BNP of 1000. CT confirms no pulmonary embolism. Blood work is overall reassuring chest x-ray is clear. He is not hypoxic. He really wants his IVIG. He has no sign of infection He is on Luspatercept for MDS, can cause PE patient does not have a pulmonary embolism. Can cause shortness of breath. IVIG does not seem to cause any shortness of breath or congestive heart failure symptoms. At this time does not need admission however I do recommend outpatient echocardiogram Discharge Plan Departure Patient Disposition: Home Clinical Impression: Congestive heart failure Instructions: DI for Heart Failure Activity Restrictions/Additional Instructions: *You have been diagnosed with congestive heart failure *What to do: At this time it does appear that you have a of fluid on your lungs. No evidence of blood clot. I do recommend continue her IVIG as scheduled. Unfortunately it was not able to get done today. Please call to schedule You will need it echocardiogram to help assess your heart *Continue to take medications as directed Lasix 20 mg once a day for 4 days --> SENT TO [facility] *Follow up with your primary care provider in 2-3 days or call [phone] *Return to ER if you should have increasing shortness of breath chest pain weakness or any new, worsening or concerning symptoms Prescriptions: New furosemide [Lasix] 20 mg tablet 20 mg PO DAILY Qty: 4 0RF No Action albuterol 90 mcg/actuation aerosol inhalation mupirocin 2 % ointment 1 applic topical BID Qty: 22 0RF multivitamin Capsule 1 cap PO Q3D tamsulosin [Flomax] 0.4 mg capsule 0.4 mg PO DAILY Qty: 90 0RF Label Comments: not yet started Rx Instructions: administer 30 minutes after same meal each day; swallow whole with liquid; do not crush/chew/dissolve/open garlic Tablet 300 mg PO Q3D Reblozyl 75 mg recon soln 75 mg SUBCUT Q3W Rx Instructions: DIVIDE DOSE INTO 3 SYRINGES OF 0.88ML EACH. ascorbic acid (vitamin C) [Vitamin C] 500 mg tablet 500 mg PO Q3D glucosamine sulfate [Glucosamine] 500 mg Tablet 1,000 mg PO DAILY omega-3 fatty acids Capsule 1 cap PO DAILY magnesium Tablet 1 tab PO DAILY sodium bicarbonate 650 mg tablet 325 mg PO BID Qty: 90 3RF Referrals: Catalino Herrera MD [Primary Care Provider] - Trevin Cummings MD [Physician] - Visit Report Forms: Patient Portal/API
[2022-08-10 12:15] VITALS: BP 125/80; PULSE 90; RESP 24; O2SAT 99
--- NOTE | 2022-08-10 12:16 | DI.CT.S_ITS ---
PROCEDURE: CT ANGIO CHEST PE PROTOCOL INDICATIONS: hypoxia TECHNIQUE: After the administration of intravenous contrast, 2 mm thick sections acquired from the pulmonary apices to the posterior costophrenic angles. 3-dimensional maximum intensity projection (MIP) coronal and sagittal reformats were then acquired through the thorax. For radiation dose reduction, the following was used: automated exposure control, adjustment of mA and/or kV according to patient size. COMPARISON: [facility], CT, CT CHEST ABD PEL W CON, 12/06/2021, 14:36. FINDINGS: Image quality: Excellent. Pulmonary arteries: Pulmonary arteries are normal in size, and demonstrate no intraluminal filling defects to suggest central pulmonary embolism. Lungs and pleura: Scarring/atelectasis in posterior and lateral aspect of right lung base is again seen unchanged from prior study. Mild atelectasis at left lung base is also noted. Stable appearing nodular thickening in posterior right upper lobe adjacent to major fissure and measures 4 mm in size unchanged from prior study series 5, image 107. Previously described 3 mm right upper lobe nodule in lateral right upper lobe is not definitely seen. Mild emphysematous changes are noted. No pleural effusions or pneumothorax. Central and peripheral airways are patent. Mediastinum: Heart size is normal, without pericardial effusion. Again noted is mediastinal lymphadenopathy measures up to 1.1 cm in size in precarinal space and 1 cm in size in subcarinal space unchanged from previous study. Mild atherosclerotic calcifications are seen in coronary vessels and thoracic aorta. Thoracic aorta is normal in caliber and enhancement. Esophagus is normal in caliber, without hiatal hernia. Bones and chest wall: No suspicious bony lesions. Ribs and thoracic spine appear intact throughout. Thyroid gland is within normal limits. No axillary or supraclavicular adenopathy. Abdomen: There is splenomegaly. Visualized portion of liver shows no gross abnormality. IMPRESSION: 1. No evidence of pulmonary emboli. No thoracic aortic aneurysm or dissection. 2. Mild COPD. Chronic appearing scarring/atelectasis in posterior lateral right lung base. Stable benign-appearing 4 mm nodular thickening involving major fissure on the right side. No new pulmonary nodule or mass. No pleural effusion or pneumothorax. Airway is patent. 3. Stable chronic appearing mild mediastinal lymphadenopathy. Mild atherosclerotic disease. 4. Splenomegaly. Dictated by: William Mensah M.D. on 08/10/2022 at 12:40 Approved by: William Mensah M.D. on 08/10/2022 at 12:51
[2022-08-10 12:36] VITALS: PULSE 82
[2022-08-10 12:37] LABS: Hematocrit 33.7 % (41-53); Hemoglobin 11.4 g/dL (13.5-17.5); Mean Corpuscular HGB Conc 33.9 % (30-36); Mean Corpuscular Hemoglobin 40.1 PG (26-34); Mean Corpuscular Volume 118.4 fL (80-100); Platelet Count 116 X10^3/uL (150-400); Red Blood Cell Count 2.85 X10^6/uL (4.5-5.9); Red Cell Distribution Width 17.4 % (11.6-14.8); White Blood Cell Count 9.7 X10^3/uL (4.5-11.0)
[2022-08-10 12:38] VITALS: BP 120/79; PULSE 113; RESP 26; O2SAT 98
[2022-08-10 12:38] LABS: Add Manual Diff / Slide Review YES
[2022-08-10 12:40] LABS: INR 1.7 (0.9-1.3); Prothrombin Time 19.8 SECONDS (10.1-12.7)
[2022-08-10 12:44] LABS: COVID19 -Nasal RAPID Negative (Negative)
[2022-08-10 12:45] LABS: Lactate (Lactic Acid) 1.5 mmol/L (0.7-2.1)
[2022-08-10 12:46] LABS: Alanine Aminotransferase 31 IU/L (<50); Albumin 3.6 g/dL (3.5-5.0); Albumin Globulin Ratio 0.9 (1.0-2.8); Alkaline Phosphatase 33 U/L (38-126); Aspartate Aminotransferase 26 IU/L (17-59); BUN Creatinine Ratio 13.4 (6-22); Blood Urea Nitrogen 15 mg/dL (9-20); Calcium 8.1 mg/dL (8.4-10.2); Carbon Dioxide 27 mmol/L (22-32); Chloride 101 mmol/L (98-107); Creatine Kinase < 20 U/L (55-170); Estimated Glomerular Filt Rate > 60 mL/min (>60); Globulin 3.8 g/dL (1.7-4.1); Glucose 129 mg/dL (80-110); HEMOLYSIS 17 (0-50); Lipase 56 U/L (23-300); Potassium 4.4 mmol/L (3.4-5.1); Sodium 135 mmol/L (137-145); Total Protein 7.4 g/dL (6.3-8.2)
[2022-08-10] MEDS: SODIUM CHLORIDE 0.9% 1,000 ML 150 ML IV (12:47)
[2022-08-10 12:57] LABS: NT-proBNP (BNP-Adult 18+) 1000 pg/mL (<450); Troponin I < 0.012 ng/mL (0.01-0.034)
[2022-08-10 13:00] VITALS: BP 112/60; PULSE 88; RESP 27; O2SAT 100
[2022-08-10 13:03] LABS: Neutrophils Absolute Manual 4074 /uL (3000-5900); Nucleated Red Blood Cells 1 #/Diff; Total Cells Counted 100
[2022-08-10 13:04] LABS: Anisocytosis 2+; Poikilocytosis 1+; Smudge Cells 1+
[2022-08-10] MEDS: FUROSEMIDE 40 MG/4 ML VIAL 20 MG IV (14:20)
== END 2022-08-10 17:18 | disposition home or self-care (01) ==
PROVIDERS: Emergency Provider Emergency Medicine; Family Provider Family Medicine; PCP Family Medicine; Referring Provider Internal Medicine Medical Oncology
DX: I50.9 Heart failure, unspecified (principal); R06.82 Tachypnea, not elsewhere classified; Z20.822 Contact with and (suspected) exposure to COVID-19; G61.0 Guillain-Barre syndrome
CPT/HCPCS: 36415; 71045; 71275; 80053; 82550; 83605; 83690; 83880; 84484; 85007; 85025; 85610; 87635; 93005; 96361; 96374; 99284; C9803; J1940; Q9967

== ENCOUNTER → 2022-08-12 13:55 | Outpatient (CLI) | payer MEDICARE, OTHER, SELFPAY ==
[2021-07-12 21:31] VITALS: BMI 29.0
[2022-08-12 15:02] LABS: Alanine Aminotransferase 31 IU/L (<50); Albumin 3.5 g/dL (3.5-5.0); Alkaline Phosphatase 41 U/L (38-126); Aspartate Aminotransferase 26 IU/L (17-59); Bilirubin Total 0.8 mg/dL (0.2-1.3); Blood Urea Nitrogen 16 mg/dL (9-20); Carbon Dioxide 26 mmol/L (22-32); Chloride 99 mmol/L (98-107); Estimated Glomerular Filt Rate > 60 mL/min (>60); Globulin 3.5 g/dL (1.7-4.1); Glucose 150 mg/dL (80-110); HEMOLYSIS < 15 (0-50); Sodium 136 mmol/L (137-145)
== END ==
PROVIDERS: Family Provider Family Medicine; PCP Family Medicine; Referring Provider Family Medicine; Visit Provider Family Medicine
DX: D47.3 Essential (hemorrhagic) thrombocythemia (principal); I50.9 Heart failure, unspecified; R09.89 Other specified symptoms and signs involving the circulatory and respiratory systems
CPT/HCPCS: 36415; 80053

== ENCOUNTER 2022-08-16 14:57 | Inpatient (IN) | payer MEDICARE, OTHER, SELFPAY ==
[2021-07-12 21:31] VITALS: BMI 29.0
--- NOTE | 2022-08-16 15:12 | DI.RAD.S_ITS ---
PROCEDURE: XR CHEST 1V INDICATIONS: weakness TECHNIQUE: One view of the chest was acquired. COMPARISON: [facility], CR, XR CHEST 1V, 08/10/2022, 11:36. FINDINGS: Surgical changes and devices: None. Lungs and pleura: Lungs are clear. No pleural effusions or pneumothorax. Mediastinum: Mediastinal contours appear normal. Heart size is normal. Bones and chest wall: No suspicious bony lesions. Overlying soft tissues appear unremarkable. IMPRESSION: No acute cardiopulmonary process demonstrated radiographically. Dictated by: Andrew Riley M.D. on 08/16/2022 at 15:35 Approved by: Andrew Riley M.D. on 08/16/2022 at 15:35
--- NOTE | 2022-08-16 15:12 | DI.CT.S_ITS ---
PROCEDURE: CT HEAD/BRAIN WO CON INDICATIONS: weakness TECHNIQUE: Noncontrast 4.5 mm thick angled axial sections acquired from the foramen magnum to the vertex, with coronal and sagittal reformats. For radiation dose reduction, the following was used: automated exposure control, adjustment of mA and/or kV according to patient size. COMPARISON: None. FINDINGS: Right frontal and parietal cerebral convexity subdural hematoma of mixed density measuring approximately 8 millimeters maximum thickness. This exerts no significant mass effect on the adjacent parenchyma. No additional acute intracranial hemorrhage identified. The ventricular system and basilar cisterns are patent. Advanced global cerebral volume loss and chronic microvascular ischemic changes present. No gross orbital abnormality. Clear paranasal sinuses and mastoid air cells. IMPRESSION: Left cerebral convexity subdural hematoma of mixed density, likely mixed acute and subacute. Findings discussed with Dr. Di Rizo at time of dictation. Dictated by: Andrew Riley M.D. on 08/16/2022 at 16:25 Approved by: Andrew Riley M.D. on 08/16/2022 at 16:29
[2022-08-16 15:28] VITALS: BP 125/92; PULSE 82; RESP 18; TEMP 36.7; O2SAT 98
[2022-08-16 15:59] VITALS: BP 120/60; PULSE 89; RESP 22; O2SAT 100
[2022-08-16 16:01] LABS: Appearance Urine UA SL CLOUDY; Bilirubin Urine UA NEGATIVE (NEGATIVE); Color Urine UA YELLOW; Glucose Urine UA NEGATIVE (Negative); Ketones Urine UA NEGATIVE (NEGATIVE); Leukocyte Esterase Urine UA NEGATIVE (NEGATIVE); Nitrite Urine UA NEGATIVE (Negative); Occult Blood Urine UA 3+ (Negative); Protein Urine UA TRACE (Negative); Specific Gravity Urine UA <=1.005 (1.000-1.035); Urobilinogen Urine UA 0.2 E.U./dL (0.2); pH Urine UA 6.5 (4.5-8.0)
[2022-08-16 16:33] LABS: Add Manual Diff / Slide Review YES; Hematocrit 28.9 % (41-53); Mean Corpuscular HGB Conc 34.7 % (30-36); Mean Corpuscular Hemoglobin 41.2 PG (26-34); Mean Corpuscular Volume 118.7 fL (80-100); Platelet Count 117 X10^3/uL (150-400); Red Blood Cell Count 2.44 X10^6/uL (4.5-5.9); Red Cell Distribution Width 17.3 % (11.6-14.8); White Blood Cell Count 7.3 X10^3/uL (4.5-11.0)
--- NOTE | 2022-08-16 16:33 | PC.NURSE ---
Pt reports vertigo which happens every time he stands for a few minutes. See ENT Dr. Tracy, and recent visit yesterday. Pt re-started his chemo infusion for bone marrow cancer this morning after taking a one month break. Pt has recent new onset in decline in memory. Some difficulty finding words.
--- NOTE | 2022-08-16 16:42 | ED.WEAKNESS ---
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 He has been receiving IVIG without much improvement. Presents today with a syncopal episode. Partner states that he has progressively gotten weaker and weaker. He received is infusion today they got home and his legs collapsed and he passed out in the living room. He did hit his head there was no loss of consciousness. He is not on any anti-platelet or anticoagulation medication. He denies any chest pain shortness of breath palpitations dizziness or lightheadedness. He is supposed received another infusion tomorrow but they have canceled it. Related Data Home Medications Medication Instructions Recorded Confirmed ascorbic acid (vitamin C) 500 mg 500 mg PO Q3D 03/17/21 08/17/22 tablet (Vitamin C) garlic 300 mg PO Q3D 03/17/21 08/17/22 multivitamin 1 cap PO Q3D 03/17/21 08/17/22 luspatercept-aamt 75 mg 75 mg SUBCUT Q3W chemo 07/08/21 08/17/22 subcutaneous solution (Reblozyl) glucosamine sulfate 500 mg tablet 1,000 mg PO DAILY 07/12/21 08/17/22 (Glucosamine) magnesium 1 tab PO DAILY 07/12/21 08/17/22 omega-3 fatty acids 1 cap PO DAILY 07/12/21 08/17/22 Previous Rx's Medication Instructions Recorded mupirocin 2 % topical ointment 1 applic topical BID #22 grams 05/10/22 furosemide 20 mg tablet (Lasix) 20 mg PO DAILY #60 tabs 08/12/22 Allergies Allergy/AdvReac Type Severity Reaction Status Date / Time No Known Drug Allergies Allergy Verified 07/22/22 16:19 Review of Systems <Di Rizo DO - Last Filed: 08/17/22 20:35> Review of Systems Narrative: GENERAL: Denies chills, fatigue, malaise, fever, sweats, travel HEENT: Denies sinus pain, ear pain, sore throat, difficulty swallowing, neck pain RESPIRATORY: Denies dyspnea, cough, wheezing, hemoptysis, sputum. CARDIOVASCULAR: Denies chest pain, palpitations, orthopnea, edema GASTROINTESTINAL: Denies nausea, vomiting, abdominal pain, diarrhea, constipation, melena. : Denies dysuria, frequency, incontinence, hematuria, urinary retention, flank pain. MUSCULOSKELETAL: Denies weakness, joint pain, or bony pain SKIN: No rash, no erythema, no pruritus NEUROLOGIC: See HPI PSYCHIATRIC: No concerning psychosocial issues. 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) Vision disorder Surgical History History of hip replacement, total Hx of cystoscopy (05/10/21) Family History Father History of heart disease Mother Congestive heart failure Brother Cancer Sister Congestive heart failure Social History household members: spouse Smoking Status: Never smoker second hand exposure: No alcohol intake: current substance use type: does not use 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 Status: Never smoker alcohol intake frequency: 0-2 drinks per day Alcohol type: wine Substance Use Type: does not use Exam <Di Rizo DO - Last Filed: 08/17/22 20:35> Initial Vital Signs Initial Vital Signs: Vital Signs Temperature 98.0 F 08/16/22 15:28 Pulse Rate 82 08/16/22 15:28 Respiratory Rate 18 08/16/22 15:28 Blood Pressure 125/92 H 08/16/22 15:28 Pulse Oximetry 98 08/16/22 15:28 Oxygen Delivery Method 08/16/22 15:28 GENERAL: Alert pleasant weak 82-year-old male HEENT: Head atraumatic,EOMI, pupils reactive, face symmetric, moist mucous membranes NECK: supple CARDIOVASCULAR: Regular rate and rhythm without murmurs, rubs or gallops. RESPIRATORY: Breath sounds equal bilaterally, no wheezes rales or rhonchi. ABDOMEN: Soft, nontender. Normoactive bowel sounds all 4 quadrants. No guarding or rebound. EXTREMITIES: Normal range of motion, no clubbing or edema. Neurovascularly intact NEUROLOGICAL: Alert and oriented x4 generalized weakness good finger to nose bilaterally able to lift legs bilaterally SKIN: Warm, dry, no laceration, no petechiae, no rashes or lesions. <Skinny Peralta DO - Last Filed: 08/17/22 01:45> Initial Vital Signs Initial Vital Signs: Vital Signs Temperature 98.0 F 08/16/22 15:28 Pulse Rate 82 08/16/22 15:28 Respiratory Rate 18 08/16/22 15:28 Blood Pressure 125/92 H 08/16/22 15:28 Pulse Oximetry 98 08/16/22 15:28 Oxygen Delivery Method 08/16/22 15:28 Scores <Di Rizo DO - Last Filed: 08/17/22 20:35> GCS [place] coma scale eye opening: Spontaneous Vini coma scale verbal response: Orientated Vini coma scale motor response: Obey commands Vini coma scale total score: 15 <Skinny Peralta DO - Last Filed: 08/17/22 01:45> GCS [place] coma scale total score: 15 Course <Di Rizo DO - Last Filed: 08/17/22 20:35> Orders Ordered: Acetaminophen (Acetaminophen 325 Mg Tablet) 650 mg PO Q6HR PRN PRN Reason: Fever/Mild Pain (1-3) Last Admin: 08/17/22 17:02 Dose: 650 mg Documented By: AKP Calcium Carbonate (Calcium Carbonate 600 Mg Tablet) 1,200 mg PO DAILY JORGE Furosemide (Furosemide 20 Mg Tablet) 20 mg PO DAILY JORGE Last Admin: 08/17/22 12:09 Dose: 20 mg Documented By: RL Ceftriaxone Sodium 1,000 mg/ (Sodium Chloride) 100 mls @ 200 mls/hr IV Q24H JORGE Stop: 08/19/22 00:14 Last Infusion: 08/17/22 03:50 Dose: 0 mls/hr Documented By: Admin: 08/17/22 01:27 Dose: 200 mls/hr Documented By: JNUO Ondansetron HCl (Ondansetron 4 Mg/2 Ml Inj) 4 mg IV Q6HR PRN PRN Reason: Nausea And Vomiting Sodium Bicarbonate (Sodium Bicarbonate 650 Mg Tablet) 325 mg PO BID JORGE Sodium Chloride (Sodium Chloride 0.9% Flush) 10 ml IV PRN PRN PRN Reason: Flush Sodium Chloride (Sodium Chloride 0.9% Flush) 10 ml IV BID [facility] Last Admin: 08/17/22 10:19 Dose: 10 ml Documented By: CASA Tamsulosin HCl (Tamsulosin 0.4 Mg Capsule) 0.4 mg PO DAILY JORGE Tramadol HCl (Tramadol 50 Mg Tablet) 50 mg PO Q4H PRN PRN Reason: Pain, Moderate (4-6) Tramadol HCl (Tramadol 50 Mg Tablet) 100 mg PO Q4H PRN PRN Reason: Pain, Severe (7-10) Stop: 08/19/22 23:35 Vital Signs Vital signs: Vital Signs - 8 hr 08/16/22 15:28 08/16/22 15:59 08/16/22 16:59 Temperature 98.0 F Pulse Rate 82 89 Respiratory Rate 18 22 Blood Pressure 125/92 H 120/60 129/58 L Pulse Oximetry 98 100 Oxygen Delivery Method Room Air Room Air 08/16/22 16:59 08/16/22 17:00 08/16/22 17:00 Temperature Pulse Rate 88 90 Respiratory Rate 21 24 Blood Pressure 114/59 L Pulse Oximetry 97 97 Oxygen Delivery Method <Skinny Peralta DO - Last Filed: 08/17/22 01:45> Orders Ordered: Acetaminophen (Acetaminophen 325 Mg Tablet) 650 mg PO Q6HR PRN PRN Reason: Fever/Mild Pain (1-3) Last Admin: 08/17/22 17:02 Dose: 650 mg Documented By: AKP Calcium Carbonate (Calcium Carbonate 600 Mg Tablet) 1,200 mg PO DAILY JORGE Furosemide (Furosemide 20 Mg Tablet) 20 mg PO DAILY [facility] Last Admin: 08/17/22 12:09 Dose: 20 mg Documented By: CASA Ceftriaxone Sodium 1,000 mg/ (Sodium Chloride) 100 mls @ 200 mls/hr IV Q24H [facility] Stop: 08/19/22 00:14 Last Infusion: 08/17/22 03:50 Dose: 0 mls/hr Documented By: Admin: 08/17/22 01:27 Dose: 200 mls/hr Documented By: JUNO Ondansetron HCl (Ondansetron 4 Mg/2 Ml Inj) 4 mg IV Q6HR PRN PRN Reason: Nausea And Vomiting Sodium Bicarbonate (Sodium Bicarbonate 650 Mg Tablet) 325 mg PO BID JORGE Sodium Chloride (Sodium Chloride 0.9% Flush) 10 ml IV PRN PRN PRN Reason: Flush Sodium Chloride (Sodium Chloride 0.9% Flush) 10 ml IV BID [facility] Last Admin: 08/17/22 10:19 Dose: 10 ml Documented By: CASA Tamsulosin HCl (Tamsulosin 0.4 Mg Capsule) 0.4 mg PO DAILY [facility] Tramadol HCl (Tramadol 50 Mg Tablet) 50 mg PO Q4H PRN PRN Reason: Pain, Moderate (4-6) Tramadol HCl (Tramadol 50 Mg Tablet) 100 mg PO Q4H PRN PRN Reason: Pain, Severe (7-10) Stop: 08/19/22 23:35 Vital Signs Vital signs: Vital Signs - 8 hr 08/16/22 15:28 08/16/22 15:59 08/16/22 16:59 Temperature 98.0 F Pulse Rate 82 89 Respiratory Rate 18 22 Blood Pressure 125/92 H 120/60 129/58 L Pulse Oximetry 98 100 Oxygen Delivery Method Room Air Room Air 08/16/22 16:59 08/16/22 17:00 08/16/22 17:00 Temperature Pulse Rate 88 90 Respiratory Rate 21 24 Blood Pressure 114/59 L Pulse Oximetry 97 97 Oxygen Delivery Method MDM - Weakness <Di Rizo, - Last Filed: 08/17/22 20:35> Lab Data Result diagrams: 08/17/22 05:10 08/17/22 05:10 Labs: Lab Results 08/16/22 08/16/22 08/16/22 Range/Units 15:30 15:52 15:56 WBC 7.3 (4.5-11.0) X10^3/uL RBC 2.44 L (4.5-5.9) X10^6/uL Hgb 10.0 L (13.5-17.5) g/dL Hct 28.9 L (41-53) % MCV 118.7 H (80-100) fL MCH 41.2 H (26-34) PG MCHC 34.7 (30-36) % RDW 17.3 H (11.6-14.8) % Plt Count 117 L (150-400) X10^3/uL Neut % (Auto) Not Reportable Lymph % (Auto) Not Reportable [place] % (Auto) Not Reportable Eos % (Auto) Not Reportable Baso % (Auto) Not Reportable Lymph # (Auto) Not Reportable [place] # (Auto) Not Reportable Baso # (Auto) Not Reportable Total Counted 100 Seg Neutrophils % 50.0 (38-70) % Band Neutrophils % 6.0 (3-7) % Lymphocytes % (Manual) 20.0 L (25-45) % Atypical Lymphs % 1.0 H ( - 0) % Monocytes % (Manual) 21.0 H (2-11) % Eosinophils % (Manual) 1.0 L (2-4) % Metamyelocytes % 1.0 H (-0) % Neutrophils # (Manual) 4088 (6005-8910) /uL RBC Morphology See below Macrocytosis 1+ H PT INR APTT Sodium (137-145) mmol/L Potassium (3.4-5.1) mmol/L Chloride (98-107) mmol/L Carbon Dioxide (22-32) mmol/L BUN (9-20) mg/dL Creatinine (0.66-1.25) mg/dL Estimated GFR (>60) mL/min BUN/Creatinine Ratio (6-22) Glucose (80-110) mg/dL Lactate (0.7-2.1) mmol/L Calcium (8.4-10.2) mg/dL Total Bilirubin (0.2-1.3) mg/dL AST (17-59) IU/L ALT (<50) IU/L Alkaline Phosphatase (38-126) U/L Total Creatine Kinase (55-170) U/L CK-MB (CK-2) CK-MB (CK-2) Rel Index Troponin I (0.01-0.034) ng/mL NT-Pro-B Natriuret Pep (<450) pg/mL Total Protein (6.3-8.2) g/dL Albumin (3.5-5.0) g/dL Globulin (1.7-4.1) g/dL Albumin/Globulin Ratio (1.0-2.8) Procalcitonin (<0.5) ng/mL Urine Color Yellow Urine Appearance Sl cloudy Urine pH 6.5 (4.5-8.0) Ur Specific [place] <=1.005 (1.000-1.035) Urine Protein Trace H (Negative) Urine Glucose (UA) Negative (Negative) g/dL Urine Ketones Negative (NEGATIVE) Urine Occult Blood 3+ H (Negative) Urine Nitrate Negative (Negative) Urine Bilirubin Negative (NEGATIVE) Urine Urobilinogen 0.2 (0.2) E.U./dL Ur Leukocyte Esterase Negative (NEGATIVE) Urine RBC 10-30/hpf H (0-5/HPF) Urine WBC 5-10/hpf H (0-5/HPF) Ur Squamous Epith Cells 0-1 /hpf (0-5/HPF) Ur Transition Epith Cell 0-1/hpf (0-5/HPF) Amorphous Sediment 1+ Urine Bacteria Occasional (0-1) (None) Hyaline Casts 5-10/lpf (None) Other Casts 0-1/lpf mixed cell Urine Mucus 1+ H (Negative) Ur Culture Indicated? Specimen cultured SARS-CoV-2 (PCR) Negative (Negative) 08/16/22 08/16/22 08/16/22 Range/Units 15:56 15:56 15:56 WBC (4.5-11.0) X10^3/uL RBC (4.5-5.9) X10^6/uL Hgb (13.5-17.5) g/dL Hct (41-53) % MCV (80-100) fL MCH (26-34) PG MCHC (30-36) % RDW (11.6-14.8) % Plt Count (150-400) X10^3/uL Neut % (Auto) Lymph % (Auto) [place] % (Auto) Eos % (Auto) Baso % (Auto) Lymph # (Auto) [place] # (Auto) Baso # (Auto) Total Counted Seg Neutrophils % (38-70) % Band Neutrophils % (3-7) % Lymphocytes % (Manual) (25-45) % Atypical Lymphs % ( - 0) % Monocytes % (Manual) (2-11) % Eosinophils % (Manual) (2-4) % Metamyelocytes % (-0) % Neutrophils # (Manual) (2100-2745) /uL RBC Morphology Macrocytosis PT Cancelled INR Cancelled APTT Cancelled Sodium 132 L (137-145) mmol/L Potassium 4.0 (3.4-5.1) mmol/L Chloride 99 (98-107) mmol/L Carbon Dioxide 24 (22-32) mmol/L BUN 17 (9-20) mg/dL Creatinine 1.08 (0.66-1.25) mg/dL Estimated GFR > 60 (>60) mL/min BUN/Creatinine Ratio 15.7 (6-22) Glucose 98 (80-110) mg/dL Lactate 1.5 (0.7-2.1) mmol/L Calcium 7.8 L (8.4-10.2) mg/dL Total Bilirubin 0.8 (0.2-1.3) mg/dL AST 25 (17-59) IU/L ALT 31 (<50) IU/L Alkaline Phosphatase 34 L (38-126) U/L Total Creatine Kinase < 20 L (55-170) U/L CK-MB (CK-2) TNP CK-MB (CK-2) Rel Index TNP Troponin I < 0.012 (0.01-0.034) ng/mL NT-Pro-B Natriuret Pep 1180 H (<450) pg/mL Total Protein 8.5 H (6.3-8.2) g/dL Albumin 3.5 (3.5-5.0) g/dL Globulin 5.0 H (1.7-4.1) g/dL Albumin/Globulin Ratio 0.7 L (1.0-2.8) Procalcitonin 0.36 (<0.5) ng/mL Urine Color Urine Appearance Urine pH (4.5-8.0) Ur Specific [place] (1.000-1.035) Urine Protein (Negative) Urine Glucose (UA) (Negative) g/dL Urine Ketones (NEGATIVE) Urine Occult Blood (Negative) Urine Nitrate (Negative) Urine Bilirubin (NEGATIVE) Urine Urobilinogen (0.2) E.U./dL Ur Leukocyte Esterase (NEGATIVE) Urine RBC (0-5/HPF) Urine WBC (0-5/HPF) Ur Squamous Epith Cells (0-5/HPF) Ur Transition Epith Cell (0-5/HPF) Amorphous Sediment Urine Bacteria (None) Hyaline Casts (None) Other Casts Urine Mucus (Negative) Ur Culture Indicated? SARS-CoV-2 (PCR) (Negative) 08/16/22 Range/Units 15:56 WBC (4.5-11.0) X10^3/uL RBC (4.5-5.9) X10^6/uL Hgb (13.5-17.5) g/dL Hct (41-53) % MCV (80-100) fL MCH (26-34) PG MCHC (30-36) % RDW (11.6-14.8) % Plt Count (150-400) X10^3/uL Neut % (Auto) Lymph % (Auto) [place] % (Auto) Eos % (Auto) Baso % (Auto) Lymph # (Auto) [place] # (Auto) Baso # (Auto) Total Counted Seg Neutrophils % (38-70) % Band Neutrophils % (3-7) % Lymphocytes % (Manual) (25-45) % Atypical Lymphs % ( - 0) % Monocytes % (Manual) (2-11) % Eosinophils % (Manual) (2-4) % Metamyelocytes % (-0) % Neutrophils # (Manual) (4416-6990) /uL RBC Morphology Macrocytosis PT 19.2 H INR 1.7 H APTT 30 Sodium (137-145) mmol/L Potassium (3.4-5.1) mmol/L Chloride (98-107) mmol/L Carbon Dioxide (22-32) mmol/L BUN (9-20) mg/dL Creatinine (0.66-1.25) mg/dL Estimated GFR (>60) mL/min BUN/Creatinine Ratio (6-22) Glucose (80-110) mg/dL Lactate (0.7-2.1) mmol/L Calcium (8.4-10.2) mg/dL Total Bilirubin (0.2-1.3) mg/dL AST (17-59) IU/L ALT (<50) IU/L Alkaline Phosphatase (38-126) U/L Total Creatine Kinase (55-170) U/L CK-MB (CK-2) CK-MB (CK-2) Rel Index Troponin I (0.01-0.034) ng/mL NT-Pro-B Natriuret Pep (<450) pg/mL Total Protein (6.3-8.2) g/dL Albumin (3.5-5.0) g/dL Globulin (1.7-4.1) g/dL Albumin/Globulin Ratio (1.0-2.8) Procalcitonin (<0.5) ng/mL Urine Color Urine Appearance Urine pH (4.5-8.0) Ur Specific [place] (1.000-1.035) Urine Protein (Negative) Urine Glucose (UA) (Negative) g/dL Urine Ketones (NEGATIVE) Urine Occult Blood (Negative) Urine Nitrate (Negative) Urine Bilirubin (NEGATIVE) Urine Urobilinogen (0.2) E.U./dL Ur Leukocyte Esterase (NEGATIVE) Urine RBC (0-5/HPF) Urine WBC (0-5/HPF) Ur Squamous Epith Cells (0-5/HPF) Ur Transition Epith Cell (0-5/HPF) Amorphous Sediment Urine Bacteria (None) Hyaline Casts (None) Other Casts Urine Mucus (Negative) Ur Culture Indicated? SARS-CoV-2 (PCR) (Negative) Urine Dip Bedside Urine Glucose Negative Bedside Urine Bilirubin - Negative Bedside Urine Ketone - Negative Urine Specific [place] 1.010 Bedside Urine Occult Blood +++ Bedside Urine pH 6.0 Bedside Urine Protein +/- 15 Bedside Urine Urobilinogen - Negative Bedside Urine Nitrite - Negative Bedside Urine Leukocytes - Negative Esterase ECG Data Interpretation: Sinus rhythm rate 86 MI interval 190 QRS 46 QTC 504 right bundle-branch block no ST changes similar to previous Repeat EKG does not show any change MDM Narrative Medical decision making narrative: Patient has worsening weakness. He was seen evaluated last week given Lasix for probable congestive heart failure. He fell today has acute subacute subdural hematoma. His states that he would need help at home. He is just getting more weak. Neuro surgery at [facility] has been contacted. This time does not knee an automatic transfer and request repeat head CT at 2030 Social work has been in to see and evaluate patient for home health care. Family does not want long-term care facility. Patient signed out to Dr. Peralta <Skinny Peralta, DO - Last Filed: 08/17/22 01:45> Lab Data Labs: Lab Results 08/16/22 08/16/22 08/16/22 Range/Units 15:30 15:52 15:56 WBC 7.3 (4.5-11.0) X10^3/uL RBC 2.44 L (4.5-5.9) X10^6/uL Hgb 10.0 L (13.5-17.5) g/dL Hct 28.9 L (41-53) % MCV 118.7 H (80-100) fL MCH 41.2 H (26-34) PG MCHC 34.7 (30-36) % RDW 17.3 H (11.6-14.8) % Plt Count 117 L (150-400) X10^3/uL Neut % (Auto) Not Reportable Lymph % (Auto) Not Reportable [place] % (Auto) Not Reportable Eos % (Auto) Not Reportable Baso % (Auto) Not Reportable Lymph # (Auto) Not Reportable [place] # (Auto) Not Reportable Baso # (Auto) Not Reportable Total Counted 100 Seg Neutrophils % 50.0 (38-70) % Band Neutrophils % 6.0 (3-7) % Lymphocytes % (Manual) 20.0 L (25-45) % Atypical Lymphs % 1.0 H ( - 0) % Monocytes % (Manual) 21.0 H (2-11) % Eosinophils % (Manual) 1.0 L (2-4) % Metamyelocytes % 1.0 H (-0) % Neutrophils # (Manual) 4088 (4606-9361) /uL RBC Morphology See below Macrocytosis 1+ H PT INR APTT Sodium (137-145) mmol/L Potassium (3.4-5.1) mmol/L Chloride (98-107) mmol/L Carbon Dioxide (22-32) mmol/L BUN (9-20) mg/dL Creatinine (0.66-1.25) mg/dL Estimated GFR (>60) mL/min BUN/Creatinine Ratio (6-22) Glucose (80-110) mg/dL Lactate (0.7-2.1) mmol/L Calcium (8.4-10.2) mg/dL Total Bilirubin (0.2-1.3) mg/dL AST (17-59) IU/L ALT (<50) IU/L Alkaline Phosphatase (38-126) U/L Total Creatine Kinase (55-170) U/L CK-MB (CK-2) CK-MB (CK-2) Rel Index Troponin I (0.01-0.034) ng/mL NT-Pro-B Natriuret Pep (<450) pg/mL Total Protein (6.3-8.2) g/dL Albumin (3.5-5.0) g/dL Globulin (1.7-4.1) g/dL Albumin/Globulin Ratio (1.0-2.8) Procalcitonin (<0.5) ng/mL Urine Color Yellow Urine Appearance Sl cloudy Urine pH 6.5 (4.5-8.0) Ur Specific [place] <=1.005 (1.000-1.035) Urine Protein Trace H (Negative) Urine Glucose (UA) Negative (Negative) g/dL Urine Ketones Negative (NEGATIVE) Urine Occult Blood 3+ H (Negative) Urine Nitrate Negative (Negative) Urine Bilirubin Negative (NEGATIVE) Urine Urobilinogen 0.2 (0.2) E.U./dL Ur Leukocyte Esterase Negative (NEGATIVE) Urine RBC 10-30/hpf H (0-5/HPF) Urine WBC 5-10/hpf H (0-5/HPF) Ur Squamous Epith Cells 0-1 /hpf (0-5/HPF) Ur Transition Epith Cell 0-1/hpf (0-5/HPF) Amorphous Sediment 1+ Urine Bacteria Occasional (0-1) (None) Hyaline Casts 5-10/lpf (None) Other Casts 0-1/lpf mixed cell Urine Mucus 1+ H (Negative) Ur Culture Indicated? Specimen cultured SARS-CoV-2 (PCR) Negative (Negative) 08/16/22 08/16/22 08/16/22 Range/Units 15:56 15:56 15:56 WBC (4.5-11.0) X10^3/uL RBC (4.5-5.9) X10^6/uL Hgb (13.5-17.5) g/dL Hct (41-53) % MCV (80-100) fL MCH (26-34) PG MCHC (30-36) % RDW (11.6-14.8) % Plt Count (150-400) X10^3/uL Neut % (Auto) Lymph % (Auto) [place] % (Auto) Eos % (Auto) Baso % (Auto) Lymph # (Auto) [place] # (Auto) Baso # (Auto) Total Counted Seg Neutrophils % (38-70) % Band Neutrophils % (3-7) % Lymphocytes % (Manual) (25-45) % Atypical Lymphs % ( - 0) % Monocytes % (Manual) (2-11) % Eosinophils % (Manual) (2-4) % Metamyelocytes % (-0) % Neutrophils # (Manual) (9783-6111) /uL RBC Morphology Macrocytosis PT Cancelled INR Cancelled APTT Cancelled Sodium 132 L (137-145) mmol/L Potassium 4.0 (3.4-5.1) mmol/L Chloride 99 (98-107) mmol/L Carbon Dioxide 24 (22-32) mmol/L BUN 17 (9-20) mg/dL Creatinine 1.08 (0.66-1.25) mg/dL Estimated GFR > 60 (>60) mL/min BUN/Creatinine Ratio 15.7 (6-22) Glucose 98 (80-110) mg/dL Lactate 1.5 (0.7-2.1) mmol/L Calcium 7.8 L (8.4-10.2) mg/dL Total Bilirubin 0.8 (0.2-1.3) mg/dL AST 25 (17-59) IU/L ALT 31 (<50) IU/L Alkaline Phosphatase 34 L (38-126) U/L Total Creatine Kinase < 20 L (55-170) U/L CK-MB (CK-2) TNP CK-MB (CK-2) Rel Index TNP Troponin I < 0.012 (0.01-0.034) ng/mL NT-Pro-B Natriuret Pep 1180 H (<450) pg/mL Total Protein 8.5 H (6.3-8.2) g/dL Albumin 3.5 (3.5-5.0) g/dL Globulin 5.0 H (1.7-4.1) g/dL Albumin/Globulin Ratio 0.7 L (1.0-2.8) Procalcitonin 0.36 (<0.5) ng/mL Urine Color Urine Appearance Urine pH (4.5-8.0) Ur Specific [place] (1.000-1.035) Urine Protein (Negative) Urine Glucose (UA) (Negative) g/dL Urine Ketones (NEGATIVE) Urine Occult Blood (Negative) Urine Nitrate (Negative) Urine Bilirubin (NEGATIVE) Urine Urobilinogen (0.2) E.U./dL Ur Leukocyte Esterase (NEGATIVE) Urine RBC (0-5/HPF) Urine WBC (0-5/HPF) Ur Squamous Epith Cells (0-5/HPF) Ur Transition Epith Cell (0-5/HPF) Amorphous Sediment Urine Bacteria (None) Hyaline Casts (None) Other Casts Urine Mucus (Negative) Ur Culture Indicated? SARS-CoV-2 (PCR) (Negative) 08/16/22 Range/Units 15:56 WBC (4.5-11.0) X10^3/uL RBC (4.5-5.9) X10^6/uL Hgb (13.5-17.5) g/dL Hct (41-53) % MCV (80-100) fL MCH (26-34) PG MCHC (30-36) % RDW (11.6-14.8) % Plt Count (150-400) X10^3/uL Neut % (Auto) Lymph % (Auto) [place] % (Auto) Eos % (Auto) Baso % (Auto) Lymph # (Auto) [place] # (Auto) Baso # (Auto) Total Counted Seg Neutrophils % (38-70) % Band Neutrophils % (3-7) % Lymphocytes % (Manual) (25-45) % Atypical Lymphs % ( - 0) % Monocytes % (Manual) (2-11) % Eosinophils % (Manual) (2-4) % Metamyelocytes % (-0) % Neutrophils # (Manual) (2255-6137) /uL RBC Morphology Macrocytosis PT 19.2 H INR 1.7 H APTT 30 Sodium (137-145) mmol/L Potassium (3.4-5.1) mmol/L Chloride (98-107) mmol/L Carbon Dioxide (22-32) mmol/L BUN (9-20) mg/dL Creatinine (0.66-1.25) mg/dL Estimated GFR (>60) mL/min BUN/Creatinine Ratio (6-22) Glucose (80-110) mg/dL Lactate (0.7-2.1) mmol/L Calcium (8.4-10.2) mg/dL Total Bilirubin (0.2-1.3) mg/dL AST (17-59) IU/L ALT (<50) IU/L Alkaline Phosphatase (38-126) U/L Total Creatine Kinase (55-170) U/L CK-MB (CK-2) CK-MB (CK-2) Rel Index Troponin I (0.01-0.034) ng/mL NT-Pro-B Natriuret Pep (<450) pg/mL Total Protein (6.3-8.2) g/dL Albumin (3.5-5.0) g/dL Globulin (1.7-4.1) g/dL Albumin/Globulin Ratio (1.0-2.8) Procalcitonin (<0.5) ng/mL Urine Color Urine Appearance Urine pH (4.5-8.0) Ur Specific [place] (1.000-1.035) Urine Protein (Negative) Urine Glucose (UA) (Negative) g/dL Urine Ketones (NEGATIVE) Urine Occult Blood (Negative) Urine Nitrate (Negative) Urine Bilirubin (NEGATIVE) Urine Urobilinogen (0.2) E.U./dL Ur Leukocyte Esterase (NEGATIVE) Urine RBC (0-5/HPF) Urine WBC (0-5/HPF) Ur Squamous Epith Cells (0-5/HPF) Ur Transition Epith Cell (0-5/HPF) Amorphous Sediment Urine Bacteria (None) Hyaline Casts (None) Other Casts Urine Mucus (Negative) Ur Culture Indicated? SARS-CoV-2 (PCR) (Negative) Urine Dip Bedside Urine Glucose Negative Bedside Urine Bilirubin - Negative Bedside Urine Ketone - Negative Urine Specific [place] 1.010 Bedside Urine Occult Blood +++ Bedside Urine pH 6.0 Bedside Urine Protein +/- 15 Bedside Urine Urobilinogen - Negative Bedside Urine Nitrite - Negative Bedside Urine Leukocytes - Negative Esterase Imaging Data CT scan - head: Radiologist Impression: Close Head CT (Signed) Rojas Richards - 08/16/[address] (Signed) Andrew Riley - 08/16/22 Chest X-Ray (Signed) Andrew Riley - 08/16/22 Chest CTA (Signed) William Mensah - 08/10/22 Chest X-Ray (Signed) JannetteAugustus - 08/10/22 Telemetry Strips 08/10/22 Finger X-Ray (Signed) Augustus Weber - 07/22/22 Chest X-Ray (Signed) TaylorRefugiodeidre - 07/22/22 PFT Result 04/21/22 PFT Result 12/30/21 EKG Rpt. 12/08/21 Chest/Abdomen/Pelvis CT (Signed) Jennifer Taylor - 12/06/21 Lumbar Spine MRI (Signed) Ravi Dai - 12/06/21 Echocardiogram Ultrasound (Signed) Ladonna Augustine - 12/06/21 Chest X-Ray (Signed) Nori Valadez - 10/11/21 Telemetry Strips 07/12/21 Telemetry Strips 07/12/21 Chest X-Ray (Signed) William Mensah - 07/12/21 Retrograde Pyelogram (Signed) Lashell Rossi - 05/17/21 Abdomen MRI (Signed) Call,Mathew - 05/12/21 Retrograde Pyelogram (Signed) Shivam Benavides - 05/10/21 Renal Ultrasound (Signed) Pasquale Vaughn - 05/10/21 Abdomen/Pelvis CT (Signed) Mariola King - 05/07/21 Radiology Report (Cancelled) Lopez Leyva - 05/04/21 Myocardial Perfusion Scan Nuc Med (Signed) Lopez Leyva - 05/04/21 Echocardiogram Ultrasound (Signed) Vicky Blakely - 04/07/21 EKG Rpt. 03/17/21 Chest X-Ray (Signed) Call,Mathew - 01/24/21 Abdomen/Pelvis CT (Signed) Jennifer Taylor - 01/24/21 Abdomen/Pelvis CT (Signed) Call,Mathew - 12/24/20 Abdomen MRI (Signed) Mariola King - 12/17/20 Abdomen/Pelvis CT (Signed) Call,Mathew - 12/06/20 Abdomen/Pelvis CT (Signed) Call,Mathew - 12/04/20 Telemetry Strips 12/04/20 Chest X-Ray (Signed) William Mensah - 01/31/20 Abdomen Ultrasound (Signed) Tonya Lomas - 05/28/19 Chest X-Ray (Signed) KennedyShivam - 02/20/19 EKG Rpt. 02/19/19 Launch?Image [address] [address] [address] Scan Report Signed Patient: Goldy Arechiga MR#: [id number] : 1940 Acct:[id number] Age/Sex: 82 / M Date of Service: 08/16/22 Loc: ED Accession Number: [id number] ?? Procedure: CT head/brain wo con Ordering Provider: Di Rizo D.O. PROCEDURE:? CT HEAD/BRAIN WO CON ? INDICATIONS:? repeat for bleed ? TECHNIQUE:? Noncontrast 4.5 mm thick angled axial sections acquired from the foramen magnum to the vertex, with coronal and sagittal reformats.? For radiation dose reduction, the following was used:? automated exposure control, adjustment of mA and/or kV according to patient size.? ? COMPARISON:? [facility], CT, CT HEAD/BRAIN WO CON, 08/16/2022, 16:20. ? FINDINGS:? Image quality:? Excellent.? ? CSF spaces:? Basal cisterns are patent.? There is moderate cerebral volume loss, with resultant ventricular and sulcal prominence.? ? Brain:? There is a left subdural collection of mixed density along the left frontal and parietal lobes which appears similar in size compared to the recent prior study.? This measures up to approximately 0.8 cm in thickness.? There is mild associated mass effect on the left frontal and parietal lobes mild rightward midline shift is demonstrated measuring up to 0.6 cm, similar to the prior study.? There are subcortical, periventricular and deep white matter hypodensities consistent with mild to moderate chronic small vessel ischemic changes.? The recinos-white matter junction appears preserved. ?There is intracranial internal carotid artery atherosclerosis.? ? Skull and face:? Calvarium and visualized facial bones appear intact, without suspicious lesions.? ? Sinuses:? Visualized sinuses and mastoids are clear.? ? IMPRESSION:? ? 1. Mixed density subdural hematoma along the left frontal and parietal lobes appears similar in size compared to the recent prior study.? ? 2. Mild associated mass effect with mild rightward midline shift also appears similar to the recent prior exam.? ? ? Dictated by: Rojas Richards M.D. on 08/16/2022 at 21:09 ? ? Approved by: Rojas Richards M.D. on 08/16/2022 at 21:15 ? [facility] Narrative Medical decision making narrative: Patient has worsening weakness. He was seen evaluated last week given Lasix for probable congestive heart failure. He fell today has acute subacute subdural hematoma. His states that he would need help at home. He is just getting more weak. Neuro surgery at [facility] has been contacted. This time does not knee an automatic transfer and request repeat head CT at 2029 Social work has been in to see and evaluate patient for home health care. Family does not want long-term care facility. Patient signed out to Dr. Peralta [[id number]] (Fabian) Patient received in sign out from [Darrius]. I have reviewed the clinical course and performed an independent history and physical exam. 2129 -repeat head CT is unchanged. Per earlier discussions patient does not meet any criteria for an acute intervention, however given the circumstances he is inappropriate for discharge and will require hospitalization to continue to monitor, and stabilize Discharge Plan Departure Patient Disposition: Admitted as Observation Clinical Impression: Chronic subdural hematoma, Acute expansion of chronic intracranial subdural hematoma Admit Date/Time: 08/16/22 23:27 Admit Provider: Tiffany Phelps
[2022-08-16 16:44] LABS: Lactate (Lactic Acid) 1.5 mmol/L (0.7-2.1)
[2022-08-16 16:56] LABS: INR 1.7 (0.9-1.3); Prothrombin Time 19.2 SECONDS (10.1-12.7)
[2022-08-16 16:57] LABS: Amorphous Sediment Urine 1+; Bacteria Urine Occasional (0-1); Other Casts Urine 0-1/LPF Mixed Cell; RBC Urine 10-30/HPF (0-5/HPF); Squamous Epithelial Cell Urine 0-1 /HPF (0-5/HPF); Transitional Epi Cells Urine 0-1/HPF (0-5/HPF); WBC Urine 5-10/HPF (0-5/HPF)
[2022-08-16 16:58] LABS: Alanine Aminotransferase 31 IU/L (<50); Albumin 3.5 g/dL (3.5-5.0); Albumin Globulin Ratio 0.7 (1.0-2.8); Alkaline Phosphatase 34 U/L (38-126); Aspartate Aminotransferase 25 IU/L (17-59); BUN Creatinine Ratio 15.7 (6-22); Bilirubin Total 0.8 mg/dL (0.2-1.3); Blood Urea Nitrogen 17 mg/dL (9-20); Calcium 7.8 mg/dL (8.4-10.2); Carbon Dioxide 24 mmol/L (22-32); Chloride 99 mmol/L (98-107); Creatine Kinase < 20 U/L (55-170); Estimated Glomerular Filt Rate > 60 mL/min (>60); Glucose 98 mg/dL (80-110); HEMOLYSIS < 15 (0-50); PTT Partial Thromboplastin Tim 30 SECONDS (26-36); Sodium 132 mmol/L (137-145); Total Protein 8.5 g/dL (6.3-8.2)
[2022-08-16 16:58] LABS: Culture Indicated Urine Specimen Cultured; Hyaline Casts Urine 5-10/LPF; Mucus Urine 1+ (Negative)
[2022-08-16 16:59] VITALS: BP 129/58; PULSE 88; RESP 21; O2SAT 97
[2022-08-16 17:00] VITALS: BP 114/59; PULSE 90; RESP 24; O2SAT 97
[2022-08-16 17:09] LABS: NT-proBNP (BNP-Adult 18+) 1180 pg/mL (<450); Troponin I < 0.012 ng/mL (0.01-0.034)
[2022-08-16 17:13] LABS: Procalcitonin 0.36 ng/mL (<0.5)
[2022-08-16 17:26] LABS: COVID19 -Nasal RAPID Negative (Negative)
[2022-08-16 17:29] LABS: Macrocytosis 1+; Neutrophils Absolute Manual 4088 /uL (3000-5900); Total Cells Counted 100
--- NOTE | 2022-08-16 19:26 | CM.IDA ---
DCP Assessment Patient is 82 y/o male who presents to ED via EMS due to concern for weakness, decline in memory the last several days and GLF. It was reported that patient received infusion today and fell. Patient presented to ED on 08/10/22 due to concern for SOB and weakness. Patient's PCP is Dr. Catalino Herrera, patient has Medicare and [employer] insurance. Patient sees a Neurologist and Oncologist with Dr. Cummings at [facility]. Patient has hx of MDS, Guillain-Bare Syndrome, CHF, Cirrhosis and BPH. Per patient's CT scan, patient has presents with Left cerebral convexity subdural hematoma of mixed density, likely mixed acute and subacute. Patient is A/O to self and person. Patient presents as confused and fatigued. Patient resides in [place] with spouse, it is reported that patient and spouse also have a home in [place] but have been staying in [place] to need for accessibility. BLOCKMAN attempts to speak with patient privately but he presents with difficulty having a conversation, patient is slow to respond and repetitive. Patient endorses preference to meet further with spouse present. BLOCKMAN re-enters room when spouse is present. Patient's Spouse Maninder (Ph. # [phone]) presents with patient at bedside. It is reported that patient uses cane at baseline to ambulate and also has FWW that he does not prefer and an electric wheelchair when out in the community. Patient and spouse endorse preference for HH and deny preference for SNF or WILL. BLOCKMAN discusses HH options and provides spouse with brochure options for all HH agencies. Spouse endorses he wants to review HH options and will inform DCP about his decision tomorrow. BLOCKMAN also provides patient's spouse with senior resource guide. BLOCKMAN discuses patient with ED provider. ED provider consults with neurology and it is reported that patient will receive another CT scan at 2020 this evening. Depending on patient's CT scan results patient will be admitted to higher level of care hospital or be admitted to this hospital. Plan: transfer patient vs. admission, if patient is admitted f/u with spouse for HH referral upon d/c as spouse is determining HH agency preference. 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 No History Provided By Patient,Medical Record Has Patient been admitted in last 30 No days? Prior Living Arrangements Apartment/Condo Household Members spouse Type of transportation used prior to Relies on Others admit Independent with ADL's No, patient's spouse assists with ADLs Is patient alert and oriented? No Caregiver for Another No DME Already Rented / Owned Electric Wheelchair, FFW, & cane Please Provide Date Initial DC 08/16/22 Assessment Was Performed
--- NOTE | 2022-08-16 20:20 | DI.CT.S_ITS ---
PROCEDURE: CT HEAD/BRAIN WO CON INDICATIONS: repeat for bleed TECHNIQUE: Noncontrast 4.5 mm thick angled axial sections acquired from the foramen magnum to the vertex, with coronal and sagittal reformats. For radiation dose reduction, the following was used: automated exposure control, adjustment of mA and/or kV according to patient size. COMPARISON: [facility], CT, CT HEAD/BRAIN WO CON, 08/16/2022, 16:20. FINDINGS: Image quality: Excellent. CSF spaces: Basal cisterns are patent. There is moderate cerebral volume loss, with resultant ventricular and sulcal prominence. Brain: There is a left subdural collection of mixed density along the left frontal and parietal lobes which appears similar in size compared to the recent prior study. This measures up to approximately 0.8 cm in thickness. There is mild associated mass effect on the left frontal and parietal lobes mild rightward midline shift is demonstrated measuring up to 0.6 cm, similar to the prior study. There are subcortical, periventricular and deep white matter hypodensities consistent with mild to moderate chronic small vessel ischemic changes. The recinos-white matter junction appears preserved. There is intracranial internal carotid artery atherosclerosis. Skull and face: Calvarium and visualized facial bones appear intact, without suspicious lesions. Sinuses: Visualized sinuses and mastoids are clear. IMPRESSION: 1. Mixed density subdural hematoma along the left frontal and parietal lobes appears similar in size compared to the recent prior study. 2. Mild associated mass effect with mild rightward midline shift also appears similar to the recent prior exam. Dictated by: Rojas Richards M.D. on 08/16/2022 at 21:09 Approved by: Rojas Richards M.D. on 08/16/2022 at 21:15
[2022-08-17] VITALS (14 sets, daily range): BP systolic 99–142; BP diastolic 52–63; PULSE 67–89; RESP 16–24; TEMP 36.2–38.1; O2SAT 93–97; BMI 25.0
--- NOTE | 2022-08-17 01:24 | PM.HP.1 ---
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 Partner informed the ED provider that he has progressively gotten weaker and weaker. He received is infusion today they got home and his legs collapsed and he passed out in the living room and the patient recalled hitting his head on the living room carpet.? He did hit his head there was no loss of consciousness.? He is not on any anti-platelet or anticoagulation medication.? He denies any chest pain shortness of breath palpitations dizziness or lightheadedness.? Denies nausea or vomiting, abdominal pain, diarrhea or constipation or upper or lower extremity parastesias. He was supposed received another IVIG infusion tomorrow but they have canceled it. The ED did 2 serial CTs of the head and did not identify any progression of a subacute subdural hematoma. They did consult with Neurosurgery who requested the serial CTs and determined after review of the 2nd CT that there was no progression of the subdural hematoma and would not do any surgical intervention. Chest x-ray was negative for any acute cardiopulmonary process. Patient is afebrile, blood pressure 142/63, heart rate 84, respiratory rate 18, oxygen saturation 97% on room air he weighs 88.4 kg with a BMI of 25. He is mildly anemic with a hemoglobin and hematocrit of 10.0 in 28.9, platelet count is 117 which appears to be is baseline, he has an abnormal peripheral smear, his INR is 1.7, sodium 132, calcium 7.8, alk-phos 34, proBNP is 1180, there is a presence of urine wbc's and rbc's, and the specimen was sent out for culture and is currently pending. COVID-19 PCR is negative as well as MRSA. FH, mother age 86 of an IN. Father age 48 of an IN. He has a 76-year-old brother had shoulder replacement. 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) Vision disorder Surgical History History of hip replacement, total Hx of cystoscopy (05/10/21) Family & Social History Family History Father History of heart disease Mother Congestive heart failure Brother Cancer Sister Congestive heart failure Social History: household members spouse Prior Living Arrangements Apartment/Condo Safety & Behavioral: Feels Safe in Current Yes Environment Been Physically Hurt or No Threatened By a Person Tobacco & Substance use: Smoking Status Never smoker alcohol intake current alcohol intake frequency 0-2 drinks per day Substance Use Type does not use Meds Home Medications and Allergies Home Medications Medication Instructions Recorded Confirmed Type ascorbic acid (vitamin C) 500 mg 500 mg PO Q3D 03/17/21 08/12/22 History tablet (Vitamin C) garlic 300 mg PO Q3D 03/17/21 08/12/22 History multivitamin 1 cap PO Q3D 03/17/21 08/12/22 History sodium bicarbonate 650 mg tablet 325 mg PO BID #90 tabs 06/02/21 08/12/22 Rx luspatercept-aamt 75 mg 75 mg SUBCUT Q3W 07/08/21 08/12/22 History subcutaneous solution (Reblozyl) glucosamine sulfate 500 mg tablet 1,000 mg PO DAILY 07/12/21 08/12/22 History (Glucosamine) magnesium 1 tab PO DAILY 07/12/21 08/12/22 History omega-3 fatty acids 1 cap PO DAILY 07/12/21 08/12/22 History tamsulosin 0.4 mg capsule (Flomax) 0.4 mg PO DAILY #90 caps 11/23/21 08/12/22 Rx albuterol 90 mcg/actuation aerosol mcg inhalation 05/10/22 08/12/22 History inhaler mupirocin 2 % topical ointment 1 applic topical BID #22 grams 05/10/22 08/12/22 Rx furosemide 20 mg tablet (Lasix) 20 mg PO DAILY #60 tabs 08/12/22 08/12/22 Rx Allergies Allergy/AdvReac Type Severity Reaction Status Date / Time No Known Drug Allergies Allergy Verified 07/22/22 16:19 Review of Systems Review of Systems ROS: Yes All systems reviewed with the patient and are negative except as otherwise documented Exam Vital Signs (past 8 hours): Oxygen Delivery Method Room Air Narrative Exam Narrative: Gen: Alert, oriented, well-developed 82 y.o. male, appears weak and fatigued HEENT: normocephalic, atraumatic, conjunctiva clear, sclera non-icteric, oral mucosa pink and moist Neck: supple, full ROM, no JVD, trachea is midline Resp: Lungs CTA, non-labored breathing CV: RRR, no murmur or rubs Abd: soft, non-tender, normoactive BTs Skin: no lesions or rashes, dry and intact Neuro: Alert and oriented X 4 w/no focal deficits. Speech clear and coherent. Extremities: moves all 4 extremities, is ambulatory, negative Dahlia?s sign Psyche: normal mood and affect. Objective Labs Result Diagrams: 08/16/22 15:56 08/16/22 15:56 Labs: Laboratory Results - last 24 hr 08/16/22 08/16/22 08/16/22 15:30 15:52 15:56 WBC 7.3 RBC 2.44 L Hgb 10.0 L Hct 28.9 L MCV 118.7 H MCH 41.2 H MCHC 34.7 RDW 17.3 H Plt Count 117 L Neut % (Auto) Not Reportable Lymph % (Auto) Not Reportable Stephenson % (Auto) Not Reportable Eos % (Auto) Not Reportable Baso % (Auto) Not Reportable Lymph # (Auto) Not Reportable Stephenson # (Auto) Not Reportable Baso # (Auto) Not Reportable Total Counted 100 Seg Neutrophils % 50.0 Band Neutrophils % 6.0 Lymphocytes % (Manual) 20.0 L Atypical Lymphs % 1.0 H Monocytes % (Manual) 21.0 H Eosinophils % (Manual) 1.0 L Metamyelocytes % 1.0 H Neutrophils # (Manual) 4088 RBC Morphology See below Macrocytosis 1+ H PT INR APTT Sodium Potassium Chloride Carbon Dioxide BUN Creatinine Estimated GFR BUN/Creatinine Ratio Glucose Lactate Calcium Total Bilirubin AST ALT Alkaline Phosphatase Total Creatine Kinase CK-MB (CK-2) CK-MB (CK-2) Rel Index Troponin I NT-Pro-B Natriuret Pep Total Protein Albumin Globulin Albumin/Globulin Ratio Procalcitonin Urine Color Yellow Urine Appearance Sl cloudy Urine pH 6.5 Ur Specific [place] <=1.005 Urine Protein Trace H Urine Glucose (UA) Negative Urine Ketones Negative Urine Occult Blood 3+ H Urine Nitrate Negative Urine Bilirubin Negative Urine Urobilinogen 0.2 Ur Leukocyte Esterase Negative Urine RBC 10-30/hpf H Urine WBC 5-10/hpf H Ur Squamous Epith Cells 0-1 /hpf Ur Transition Epith Cell 0-1/hpf Amorphous Sediment 1+ Urine Bacteria Occasional (0-1) Hyaline Casts 5-10/lpf Other Casts 0-1/lpf mixed cell Urine Mucus 1+ H Ur Culture Indicated? Specimen cultured SARS-CoV-2 (PCR) Negative 08/16/22 08/16/22 08/16/22 15:56 15:56 15:56 WBC RBC Hgb Hct MCV MCH MCHC RDW Plt Count Neut % (Auto) Lymph % (Auto) Stephenson % (Auto) Eos % (Auto) Baso % (Auto) Lymph # (Auto) Stephenson # (Auto) Baso # (Auto) Total Counted Seg Neutrophils % Band Neutrophils % Lymphocytes % (Manual) Atypical Lymphs % Monocytes % (Manual) Eosinophils % (Manual) Metamyelocytes % Neutrophils # (Manual) RBC Morphology Macrocytosis PT Cancelled INR Cancelled APTT Cancelled Sodium 132 L Potassium 4.0 Chloride 99 Carbon Dioxide 24 BUN 17 Creatinine 1.08 Estimated GFR > 60 BUN/Creatinine Ratio 15.7 Glucose 98 Lactate 1.5 Calcium 7.8 L Total Bilirubin 0.8 AST 25 ALT 31 Alkaline Phosphatase 34 L Total Creatine Kinase < 20 L CK-MB (CK-2) TNP CK-MB (CK-2) Rel Index TNP Troponin I < 0.012 NT-Pro-B Natriuret Pep 1180 H Total Protein 8.5 H Albumin 3.5 Globulin 5.0 H Albumin/Globulin Ratio 0.7 L Procalcitonin 0.36 Urine Color Urine Appearance Urine pH Ur Specific [place] Urine Protein Urine Glucose (UA) Urine Ketones Urine Occult Blood Urine Nitrate Urine Bilirubin Urine Urobilinogen Ur Leukocyte Esterase Urine RBC Urine WBC Ur Squamous Epith Cells Ur Transition Epith Cell Amorphous Sediment Urine Bacteria Hyaline Casts Other Casts Urine Mucus Ur Culture Indicated? SARS-CoV-2 (PCR) 08/16/22 15:56 WBC RBC Hgb Hct MCV MCH MCHC RDW Plt Count Neut % (Auto) Lymph % (Auto) Stephenson % (Auto) Eos % (Auto) Baso % (Auto) Lymph # (Auto) Stephenson # (Auto) Baso # (Auto) Total Counted Seg Neutrophils % Band Neutrophils % Lymphocytes % (Manual) Atypical Lymphs % Monocytes % (Manual) Eosinophils % (Manual) Metamyelocytes % Neutrophils # (Manual) RBC Morphology Macrocytosis PT 19.2 H INR 1.7 H APTT 30 Sodium Potassium Chloride Carbon Dioxide BUN Creatinine Estimated GFR BUN/Creatinine Ratio Glucose Lactate Calcium Total Bilirubin AST ALT Alkaline Phosphatase Total Creatine Kinase CK-MB (CK-2) CK-MB (CK-2) Rel Index Troponin I NT-Pro-B Natriuret Pep Total Protein Albumin Globulin Albumin/Globulin Ratio Procalcitonin Urine Color Urine Appearance Urine pH Ur Specific [place] Urine Protein Urine Glucose (UA) Urine Ketones Urine Occult Blood Urine Nitrate Urine Bilirubin Urine Urobilinogen Ur Leukocyte Esterase Urine RBC Urine WBC Ur Squamous Epith Cells Ur Transition Epith Cell Amorphous Sediment Urine Bacteria Hyaline Casts Other Casts Urine Mucus Ur Culture Indicated? SARS-CoV-2 (PCR) Assessment & Plan Assessment & Plan narrative: Goldy Arechiga is admitted for further management of a urinary tract infection and monitoring for any neurological symptoms due to a subdural hematoma. Urinary tract infection, acute, present on admission He is initiated on IV ceftriaxone 1 g daily Subdural hematoma suspected to be acute on chronic Fall precautions, seizure precautions Guillain-[place] syndrome, protracted Monitor for worsening weakness or neurological symptoms VTE Prophylaxis: Wells risk score 0 Enoxaparin 40 mg subQ once daily Bilateral SCDs Patient is admitted to the inpatient service due to the severity of disease, risks of further disease progression and this stay is expected to exceed 2 midnights. FEN: IV fluids: Saline lock, diet: Heart healthy, labs: CBC, C/BMP, liver enzymes, Mag, PT/INR Consultants none Dispo: Likely discharge to home, social work did see him and had been discussing possibilities for rehab due to his fall risk Code status: Full code as discussed with the patient who identifies Maninder Cazares as his surrogate and POA. [X] I have utilized all available immediate resources to obtain, update, or review of the patient's current medications VTE Deep Vein Thrombosis/Pulmonary Embolism Present on Admission: No MIPS - Admit I confirm the patient?s Advance Care Plan is present, Code status is documented, Surrogate decision maker is in patient?s record: Yes MIPS - DC The patient has current or prior documentation of left ventricular ejection fraction (LVEF) less than 40%, or moderate or severely depressed left ventricular systolic function.: No COVID-19 COVID-19 status: Negative Result date/Date tested (Pos, Neg/Pending): 08/16/22
[2022-08-17] MEDS: cefTRIAXone 1,000 MG in SODIUM CHLORIDE 0.9% 100 ML 200 MG IV ×2 (01:27→23:16)
--- NOTE | 2022-08-17 06:26 | PC.ADMIT ---
[email or web address] [facility] [address] Admission Note: The patient,Goldy Arechiga,82 y/o, was given written information regarding hospital policies, unit procedures and contact persons. Patient's smoking status: Never smoker. Vital Signs - 8 hr 08/17/22 01:50 08/17/22 01:50 08/17/22 00:50 Temperature 99.6 F Pulse Rate 84 Respiratory Rate 18 Blood Pressure 142/63 H Pulse Oximetry 97 97 Oxygen Delivery Method Room Air Room Air Oxygen Flow Rate 0 0 08/17/22 05:15 08/17/22 05:15 Temperature 99.1 F Pulse Rate 84 Respiratory Rate 16 Blood Pressure 115/62 Pulse Oximetry 94 94 Oxygen Delivery Method Room Air Oxygen Flow Rate Patient admitted to room 228 at 0035. Oriented to person and place, delayed speech with difficulty with finding words. Fatigue and weakness in all extremities, mostly Lt leg. SR\ST, BBB, T 99.1, BP stable, see vital trends. Rocephin started. Voiding frequently with urgency, needs assist with urinal. Seizure pads on rails.
[2022-08-17 06:34] LABS: Alanine Aminotransferase 25 IU/L (<50); Albumin Globulin Ratio 0.7 (1.0-2.8); Alkaline Phosphatase 30 U/L (38-126); Aspartate Aminotransferase 24 IU/L (17-59); BUN Creatinine Ratio 13.5 (6-22); Bilirubin Total 0.7 mg/dL (0.2-1.3); Blood Urea Nitrogen 15 mg/dL (9-20); Calcium 7.6 mg/dL (8.4-10.2); Carbon Dioxide 24 mmol/L (22-32); Chloride 99 mmol/L (98-107); Estimated Glomerular Filt Rate > 60 mL/min (>60); Globulin 4.4 g/dL (1.7-4.1); Glucose 115 mg/dL (80-110); HEMOLYSIS < 15 (0-50); Hematocrit 26.6 % (41-53); Hemoglobin 9.2 g/dL (13.5-17.5); Magnesium 1.9 mg/dL (1.6-2.3); Mean Corpuscular HGB Conc 34.5 % (30-36); Mean Corpuscular Hemoglobin 40.9 PG (26-34); Mean Corpuscular Volume 118.6 fL (80-100); Platelet Count 115 X10^3/uL (150-400); Potassium 3.7 mmol/L (3.4-5.1); Red Blood Cell Count 2.24 X10^6/uL (4.5-5.9); Red Cell Distribution Width 17.3 % (11.6-14.8); Sodium 133 mmol/L (137-145); Total Protein 7.4 g/dL (6.3-8.2); White Blood Cell Count 6.4 X10^3/uL (4.5-11.0)
[2022-08-17 06:49] LABS: Add Manual Diff / Slide Review YES
[2022-08-17 07:34] LABS: Anisocytosis 1+; Neutrophils Absolute Manual 3648 /uL (3000-5900); Nucleated Red Blood Cells 1 #/Diff; Poikilocytosis 1+; Total Cells Counted 100
[2022-08-17] MEDS: SODIUM CHLORIDE 0.9% FLUSH 10 ML IV ×2 (10:19→21:38)
--- NOTE | 2022-08-17 11:08 | P.PN_ITS ---
Subjective Subjective Interval history: Still feels very weak and confused. No other new problems. No fever or chills. No diaphoresis. No abdominal pain constipation or diarrhea. Exam Vital Signs (past 8 hours): - 08/17/22 05:15 08/17/22 05:15 08/17/22 07:45 Temperature 99.1 F 98.3 F Pulse Rate 84 89 Respiratory Rate 16 20 Blood Pressure 115/62 113/62 Pulse Oximetry 94 94 95 Oxygen Delivery Method Room Air Oxygen Flow Rate 0 Oxygen Delivery Method Room Air Oxygen Flow Rate 0 Narrative Exam Narrative: Gen: Alert, oriented, well-developed, appears weak and fatigued HEENT: normocephalic, atraumatic, conjunctiva clear, sclera non-icteric, oral mucosa pink and moist Neck: supple, full ROM, no JVD, trachea is midline Resp: Lungs CTA, non-labored breathing, no wheezes or crackles. CV: Rate and rhythm normal,heart sounds S1-S2, no murmur or rubs Abd: soft, non-tender, bowel sounds normal Skin: no lesions or rashes, dry and intact Neuro: Alert and oriented X 4 w/no focal deficits. Speech clear and coherent but slow due to fatigue Extremities: moves all 4 extremities Psyche: normal mood and affect. Objective Labs Result Diagrams: 08/17/22 05:10 08/17/22 05:10 Labs: Laboratory Results - last 24 hr 08/16/22 08/16/22 08/16/22 15:30 15:52 15:56 WBC 7.3 RBC 2.44 L Hgb 10.0 L Hct 28.9 L MCV 118.7 H MCH 41.2 H MCHC 34.7 RDW 17.3 H Plt Count 117 L Neut % (Auto) Not Reportable Lymph % (Auto) Not Reportable Lane % (Auto) Not Reportable Eos % (Auto) Not Reportable Baso % (Auto) Not Reportable Lymph # (Auto) Not Reportable Lane # (Auto) Not Reportable Baso # (Auto) Not Reportable Total Counted 100 Seg Neutrophils % 50.0 Band Neutrophils % 6.0 Lymphocytes % (Manual) 20.0 L Atypical Lymphs % 1.0 H Monocytes % (Manual) 21.0 H Eosinophils % (Manual) 1.0 L Metamyelocytes % 1.0 H Neutrophils # (Manual) 4088 Nucleated RBCs RBC Morphology See below Poikilocytosis Anisocytosis Macrocytosis 1+ H PT INR APTT Sodium Potassium Chloride Carbon Dioxide BUN Creatinine Estimated GFR BUN/Creatinine Ratio Glucose Lactate Calcium Magnesium Total Bilirubin AST ALT Alkaline Phosphatase Total Creatine Kinase CK-MB (CK-2) CK-MB (CK-2) Rel Index Troponin I NT-Pro-B Natriuret Pep Total Protein Albumin Globulin Albumin/Globulin Ratio Procalcitonin Urine Color Yellow Urine Appearance Sl cloudy Urine pH 6.5 Ur Specific [place] <=1.005 Urine Protein Trace H Urine Glucose (UA) Negative Urine Ketones Negative Urine Occult Blood 3+ H Urine Nitrate Negative Urine Bilirubin Negative Urine Urobilinogen 0.2 Ur Leukocyte Esterase Negative Urine RBC 10-30/hpf H Urine WBC 5-10/hpf H Ur Squamous Epith Cells 0-1 /hpf Ur Transition Epith Cell 0-1/hpf Amorphous Sediment 1+ Urine Bacteria Occasional (0-1) Hyaline Casts 5-10/lpf Other Casts 0-1/lpf mixed cell Urine Mucus 1+ H Ur Culture Indicated? Specimen cultured Nasal Screen MRSA (PCR) SARS-CoV-2 (PCR) Negative 08/16/22 08/16/22 08/16/22 15:56 15:56 15:56 WBC RBC Hgb Hct MCV MCH MCHC RDW Plt Count Neut % (Auto) Lymph % (Auto) Lane % (Auto) Eos % (Auto) Baso % (Auto) Lymph # (Auto) Lane # (Auto) Baso # (Auto) Total Counted Seg Neutrophils % Band Neutrophils % Lymphocytes % (Manual) Atypical Lymphs % Monocytes % (Manual) Eosinophils % (Manual) Metamyelocytes % Neutrophils # (Manual) Nucleated RBCs RBC Morphology Poikilocytosis Anisocytosis Macrocytosis PT Cancelled INR Cancelled APTT Cancelled Sodium 132 L Potassium 4.0 Chloride 99 Carbon Dioxide 24 BUN 17 Creatinine 1.08 Estimated GFR > 60 BUN/Creatinine Ratio 15.7 Glucose 98 Lactate 1.5 Calcium 7.8 L Magnesium Total Bilirubin 0.8 AST 25 ALT 31 Alkaline Phosphatase 34 L Total Creatine Kinase < 20 L CK-MB (CK-2) TNP CK-MB (CK-2) Rel Index TNP Troponin I < 0.012 NT-Pro-B Natriuret Pep 1180 H Total Protein 8.5 H Albumin 3.5 Globulin 5.0 H Albumin/Globulin Ratio 0.7 L Procalcitonin 0.36 Urine Color Urine Appearance Urine pH Ur Specific [place] Urine Protein Urine Glucose (UA) Urine Ketones Urine Occult Blood Urine Nitrate Urine Bilirubin Urine Urobilinogen Ur Leukocyte Esterase Urine RBC Urine WBC Ur Squamous Epith Cells Ur Transition Epith Cell Amorphous Sediment Urine Bacteria Hyaline Casts Other Casts Urine Mucus Ur Culture Indicated? Nasal Screen MRSA (PCR) SARS-CoV-2 (PCR) 08/16/22 08/17/22 08/17/22 15:56 01:00 05:10 WBC 6.4 RBC 2.24 L Hgb 9.2 L Hct 26.6 L MCV 118.6 H MCH 40.9 H MCHC 34.5 RDW 17.3 H Plt Count 115 L Neut % (Auto) Not Reportable Lymph % (Auto) Not Reportable Lane % (Auto) Not Reportable Eos % (Auto) Not Reportable Baso % (Auto) Not Reportable Lymph # (Auto) Not Reportable Lane # (Auto) Not Reportable Baso # (Auto) Not Reportable Total Counted 100 Seg Neutrophils % 54.0 Band Neutrophils % 3.0 Lymphocytes % (Manual) 11.0 L Atypical Lymphs % 9.0 H Monocytes % (Manual) 23.0 H Eosinophils % (Manual) Metamyelocytes % Neutrophils # (Manual) 3648 Nucleated RBCs 1 H RBC Morphology Not Reportable Poikilocytosis 1+ H Anisocytosis 1+ H Macrocytosis PT 19.2 H INR 1.7 H APTT 30 Sodium Potassium Chloride Carbon Dioxide BUN Creatinine Estimated GFR BUN/Creatinine Ratio Glucose Lactate Calcium Magnesium Total Bilirubin AST ALT Alkaline Phosphatase Total Creatine Kinase CK-MB (CK-2) CK-MB (CK-2) Rel Index Troponin I NT-Pro-B Natriuret Pep Total Protein Albumin Globulin Albumin/Globulin Ratio Procalcitonin Urine Color Urine Appearance Urine pH Ur Specific [place] Urine Protein Urine Glucose (UA) Urine Ketones Urine Occult Blood Urine Nitrate Urine Bilirubin Urine Urobilinogen Ur Leukocyte Esterase Urine RBC Urine WBC Ur Squamous Epith Cells Ur Transition Epith Cell Amorphous Sediment Urine Bacteria Hyaline Casts Other Casts Urine Mucus Ur Culture Indicated? Nasal Screen MRSA (PCR) Negative for mrsa SARS-CoV-2 (PCR) 08/17/22 05:10 WBC RBC Hgb Hct MCV MCH MCHC RDW Plt Count Neut % (Auto) Lymph % (Auto) Lane % (Auto) Eos % (Auto) Baso % (Auto) Lymph # (Auto) Lane # (Auto) Baso # (Auto) Total Counted Seg Neutrophils % Band Neutrophils % Lymphocytes % (Manual) Atypical Lymphs % Monocytes % (Manual) Eosinophils % (Manual) Metamyelocytes % Neutrophils # (Manual) Nucleated RBCs RBC Morphology Poikilocytosis Anisocytosis Macrocytosis PT INR APTT Sodium 133 L Potassium 3.7 Chloride 99 Carbon Dioxide 24 BUN 15 Creatinine 1.11 Estimated GFR > 60 BUN/Creatinine Ratio 13.5 Glucose 115 H Lactate Calcium 7.6 L Magnesium 1.9 Total Bilirubin 0.7 AST 24 ALT 25 Alkaline Phosphatase 30 L Total Creatine Kinase CK-MB (CK-2) CK-MB (CK-2) Rel Index Troponin I NT-Pro-B Natriuret Pep Total Protein 7.4 Albumin 3.0 L Globulin 4.4 H Albumin/Globulin Ratio 0.7 L Procalcitonin Urine Color Urine Appearance Urine pH Ur Specific [place] Urine Protein Urine Glucose (UA) Urine Ketones Urine Occult Blood Urine Nitrate Urine Bilirubin Urine Urobilinogen Ur Leukocyte Esterase Urine RBC Urine WBC Ur Squamous Epith Cells Ur Transition Epith Cell Amorphous Sediment Urine Bacteria Hyaline Casts Other Casts Urine Mucus Ur Culture Indicated? 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 Urinary tract infection, acute, present on admission IV ceftriaxone 1 g daily. Urine and blood cultures are pending. 2. Subdural hematoma suspected to be acute on subacute however patient did not report any previous history of a subdural. Fall precautions, seizure precautions, follow clinically neurologically. 3. 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 Guillain-[place] secondary to [employer] immunization for COVID. IVIG is on hold due to hospitalization currently. Initially was treated with IVIG and improved. However most recently had an increase in weakness and therefore this was re-initiated. Monitor for worsening weakness or neurological symptoms 4. Acute confusion. Components of possible concussion from fall causing subdural hematoma and or urinary tract infection causing acute delirium. Follow clinically. 5. Prescription of sodium bicarbonate b.i.d. patient unclear of the reason for prescribing. May be acid indigestion. Will continue. 6. Prescription for tamsulosin. Likely underlying benign prostatic hypertrophy. Continue prescription. 7. 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 Receives Reblozyl 75 mg Subcut. every 3 weeks by Oncology 8. Anemia with multifactorial causes. Follow. 9. Elevated atypical lymphocytes and monocytes. Follow. 10. Elevated PT and INR likely due to underlying liver disease. Will not prescribe enoxaparin. 11. Mild hyponatremia. Follow 12. Hypokalemia. Replace 13. Elevated BNP. Continue patient's furosemide. VTE Prophylaxis: Wells risk score 0 ? Bilateral SCDs Patient is admitted to the inpatient service due to the severity of disease, risks of further disease progression and this stay is expected to exceed 2 midnights. FEN: IV fluids:? Saline lock, diet:? Heart healthy Consultants none Dispo:? Likely discharge to home, social work did see him and had been discussing possibilities for rehab due to his fall risk Code status:? Full code, patient identifies Maninder Cazares as his surrogate and POA. Time Spent With Patient Critical Care time: I spent a total of [] minutes of critical care time on this patient's care today; this time is exclusive of procedural time. Quality VTE Deep Vein Thrombosis/Pulmonary Embolism Present on Admission: No
[2022-08-17] MEDS: FUROSEMIDE 20 MG TABLET PO (12:09)
--- NOTE | 2022-08-17 12:55 | PC.NURSE ---
Pt complained of soreness to sacral area, skin intact, blanchable redness noted. sacral dressing applied, pt states good relief.
--- NOTE | 2022-08-17 14:10 | CM.DPC ---
DCP Note RESEARCH ASSISTANT enters room to meet with patient and spouse Maninder. Maninder endorses he reviewed HH options and endorses his preference is [facility]. RESEARCH ASSISTANT discusses services and patient's spouse agrees with patient having PT, RN and HH aide. RESEARCH ASSISTANT informs DCP Jordyn of HH preference and starts F2F form, it is reported that patient will probably not d/c today. DCP to complete F2F. RESEARCH ASSISTANT calls Gary at [facility] regarding new referral, Gary has access to [employer] and can see patient records. Gary states he can receive the completed F2F form if it is scanned into EMR. Plan: DCP to f/u with POC with spouse and submit completed F2F form to EMR, upon medical clearance patient to d/c with [facility] services. MAGGIE VanegasSW
[2022-08-17] MEDS: ACETAMINOPHEN 325 MG TABLET 650 MG PO (17:02)
[2022-08-17] MEDS: SODIUM BICARBONATE 650 MG TABLET 325 MG PO (21:37)
[2022-08-18] VITALS (10 sets, daily range): BP systolic 101–116; BP diastolic 51–69; PULSE 86–100; RESP 17–19; TEMP 36.3–36.9; O2SAT 93–96
[2022-08-18 06:14] LABS: Hematocrit 28.1 % (41-53); Hemoglobin 9.8 g/dL (13.5-17.5); Mean Corpuscular HGB Conc 34.8 % (30-36); Mean Corpuscular Hemoglobin 40.7 PG (26-34); Mean Corpuscular Volume 117.1 fL (80-100); Platelet Count 117 X10^3/uL (150-400); Red Cell Distribution Width 17.2 % (11.6-14.8); White Blood Cell Count 8.7 X10^3/uL (4.5-11.0)
[2022-08-18 06:22] LABS: Add Manual Diff / Slide Review YES
[2022-08-18 06:26] LABS: Alanine Aminotransferase 25 IU/L (<50); Albumin 3.3 g/dL (3.5-5.0); Albumin Globulin Ratio 0.8 (1.0-2.8); Alkaline Phosphatase 32 U/L (38-126); Aspartate Aminotransferase 26 IU/L (17-59); BUN Creatinine Ratio 13.2 (6-22); Bilirubin Total 0.7 mg/dL (0.2-1.3); Blood Urea Nitrogen 15 mg/dL (9-20); Calcium 7.6 mg/dL (8.4-10.2); Carbon Dioxide 24 mmol/L (22-32); Chloride 100 mmol/L (98-107); Estimated Glomerular Filt Rate > 60 mL/min (>60); Globulin 4.2 g/dL (1.7-4.1); Glucose 128 mg/dL (80-110); HEMOLYSIS < 15 (0-50); Potassium 3.5 mmol/L (3.4-5.1); Sodium 133 mmol/L (137-145); Total Protein 7.5 g/dL (6.3-8.2)
[2022-08-18 07:10] LABS: Neutrophils Absolute Manual 5394 /uL (3000-5900); Total Cells Counted 100
[2022-08-18 07:13] LABS: Anisocytosis 1+; Macrocytosis 1+
--- NOTE | 2022-08-18 07:55 | PM.PN.1 ---
Subjective Subjective Date Patient Seen: 08/18/22 Time Patient Seen: 07:30 Interval history: Had a good night sleep. Has no headache. Only minimally confused at this time. Feels much better. Is very appreciative for his care. No new complaints. Exam Vital Signs (past 8 hours): - 08/18/22 00:27 08/18/22 02:00 08/18/22 04:12 Temperature 98.5 F 98.5 F Pulse Rate 86 90 Respiratory Rate 17 19 Blood Pressure 108/53 L 101/52 L Pulse Oximetry 93 93 94 Oxygen Delivery Method Room Air Oxygen Flow Rate 0 0 08/18/22 06:00 Temperature Pulse Rate Respiratory Rate Blood Pressure Pulse Oximetry 96 Oxygen Delivery Method Room Air Oxygen Flow Rate Oxygen Delivery Method Room Air Oxygen Flow Rate 0 Narrative Exam Narrative: Gen: Alert, oriented, well-developed, still appearing slightly fatigued HEENT: normocephalic, atraumatic, conjunctiva clear, sclera non-icteric, oral mucosa pink and moist Neck: supple, full ROM, no JVD, trachea is midline Resp: Lungs CTA, non-labored breathing, no wheezes or crackles. CV:? Rate and rhythm normal, heart sounds S1-S2, no murmur or rubs Abd: soft, non-tender, bowel sounds normal Skin: no lesions or rashes, dry and intact Neuro: Alert and oriented X 4 w/no focal deficits. Speech clear and coherent Extremities: moves all 4 extremities Psyche: normal mood and affect. Objective Labs Result Diagrams: 08/18/22 05:46 08/18/22 05:46 Labs: Laboratory Results - last 24 hr 08/18/22 08/18/22 05:46 05:46 WBC 8.7 RBC 2.40 L Hgb 9.8 L Hct 28.1 L MCV 117.1 H MCH 40.7 H MCHC 34.8 RDW 17.2 H Plt Count 117 L Neut % (Auto) Not Reportable Lymph % (Auto) Not Reportable [place] % (Auto) Not Reportable Eos % (Auto) Not Reportable Baso % (Auto) Not Reportable Lymph # (Auto) Not Reportable [place] # (Auto) Not Reportable Baso # (Auto) Not Reportable Total Counted 100 Seg Neutrophils % 60.0 Band Neutrophils % 2.0 L Lymphocytes % (Manual) 21.0 L Atypical Lymphs % 7.0 H Monocytes % (Manual) 8.0 Eosinophils % (Manual) 1.0 L Basophils % (Manual) 1.0 Neutrophils # (Manual) 5394 RBC Morphology Not Reportable Anisocytosis 1+ H Macrocytosis 1+ H Sodium 133 L Potassium 3.5 Chloride 100 Carbon Dioxide 24 BUN 15 Creatinine 1.14 Estimated GFR > 60 BUN/Creatinine Ratio 13.2 Glucose 128 H Calcium 7.6 L Magnesium 2.0 Total Bilirubin 0.7 AST 26 ALT 25 Alkaline Phosphatase 32 L Total Protein 7.5 Albumin 3.3 L Globulin 4.2 H Albumin/Globulin Ratio 0.8 L COUNT INCLUDES THE [facility] Medical History Adrenal nodule (11/2020) Adrenal nodule Allergic sinusitis BPH (benign prostatic hyperplasia) Cataracts, bilateral (~1995) Chicken pox (~1943) Cirrhosis Elevated liver enzymes Erythropoietic hemochromatosis Essential thrombocytosis Hepatomegaly HNP (herniated nucleus pulposus), lumbar Lumbar spinal stenosis Melanoma (~1983) Postnasal drip Postural hypotension Serous otitis media 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) Thrombocytopenia 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 Urinary tract infection, acute, present on admission ?IV ceftriaxone 1 g daily.? Urine culture is pending. Blood culture so far negative. 2. Subdural hematoma suspected to be acute on subacute however patient did not report any previous history of a subdural. Fall precautions, seizure precautions, follow clinically neurologically. 3. 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 Guillain-[place] secondary to [employer] immunization for COVID.? IVIG is on hold due to hospitalization currently.? Initially was treated with IVIG and improved.? However most recently had an increase in weakness and therefore this was re-initiated. Monitor for worsening weakness or neurological symptoms 4. Acute confusion.? Components of possible concussion from fall causing subdural hematoma and or urinary tract infection causing acute delirium.? This has improved and is only minimal. 5. Prescription of sodium bicarbonate b.i.d. patient unclear of the reason for prescribing.? May be acid indigestion.? Will continue. 6. Prescription for tamsulosin.? Likely underlying benign prostatic hypertrophy.? Continue prescription.? 7. 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 Receives Reblozyl 75 mg Subcut. every 3 weeks by Oncology. Not ordered for this hospitalization. 8. Anemia with multifactorial causes.? Concurrently stable. Follow. 9. Elevated atypical lymphocytes.? Follow. 10. Elevated PT and INR likely due to underlying liver disease.? Will not prescribe enoxaparin.? 11. Mild hyponatremia. Stable. Follow 12. Hypokalemia.? Resolved to normal. 13. Elevated BNP.? Continue patient's furosemide.? VTE Prophylaxis: Wells risk score 0 ? Bilateral SCDs Patient is admitted to the inpatient service due to the severity of disease, risks of further disease progression and this stay is expected to exceed 2 midnights. FEN: IV fluids:? Saline lock, diet:? Heart healthy Consultants none Dispo:? Likely discharge to home, social work did see him and had been discussing possibilities for rehab due to his fall risk Code status:? Full code,? patient identifies Maninder Cazares as his surrogate and POA. Time Spent With Patient Critical Care time: I spent a total of [] minutes of critical care time on this patient's care today; this time is exclusive of procedural time. Quality VTE Deep Vein Thrombosis/Pulmonary Embolism Present on Admission: No
[2022-08-18] MEDS: SODIUM BICARBONATE 650 MG TABLET 325 MG PO ×2 (08:52→21:33)
[2022-08-18] MEDS: CALCIUM CARBONATE 600 MG TABLET 1200 MG PO (08:52)
[2022-08-18] MEDS: TAMSULOSIN 0.4 MG CAPSULE PO (08:52)
[2022-08-18] MEDS: SODIUM CHLORIDE 0.9% FLUSH 10 ML IV ×3 (08:54→23:20)
[2022-08-18] MEDS: FUROSEMIDE 20 MG TABLET PO (08:54)
[2022-08-18] MEDS: cefTRIAXone 1,000 MG in SODIUM CHLORIDE 0.9% 100 ML 200 MG IV (23:20)
[2022-08-19] VITALS (10 sets, daily range): BP systolic 104–133; BP diastolic 53–71; PULSE 67–95; RESP 17–18; TEMP 36.1–36.9; O2SAT 92–98
[2022-08-19 07:04] LABS: Alanine Aminotransferase 24 IU/L (<50); Albumin 3.1 g/dL (3.5-5.0); Albumin Globulin Ratio 0.8 (1.0-2.8); Alkaline Phosphatase 30 U/L (38-126); Aspartate Aminotransferase 21 IU/L (17-59); BUN Creatinine Ratio 13.6 (6-22); Bilirubin Total 0.7 mg/dL (0.2-1.3); Blood Urea Nitrogen 14 mg/dL (9-20); Calcium 7.5 mg/dL (8.4-10.2); Carbon Dioxide 25 mmol/L (22-32); Chloride 99 mmol/L (98-107); Estimated Glomerular Filt Rate > 60 mL/min (>60); Glucose 132 mg/dL (80-110); HEMOLYSIS < 15 (0-50); Magnesium 1.9 mg/dL (1.6-2.3); Potassium 3.5 mmol/L (3.4-5.1); Sodium 134 mmol/L (137-145); Total Protein 7.1 g/dL (6.3-8.2)
[2022-08-19 07:12] LABS: Add Manual Diff / Slide Review NO; Basophils Absolute Auto 0 /uL (0-100); Basophils Percent Auto 0.4 % (0-2); Eosinophils Absolute Auto 0 /uL (0-450); Eosinophils Percent Auto 0.6 % (2-4); Hematocrit 28.3 % (41-53); Hemoglobin 9.8 g/dL (13.5-17.5); Lymphocytes Absolute Auto 1400 /uL (1100-4500); Lymphocytes Percent Auto 15.6 % (25-40); Mean Corpuscular HGB Conc 34.8 % (30-36); Mean Corpuscular Hemoglobin 40.4 PG (26-34); Mean Corpuscular Volume 116.3 fL (80-100); Monocytes Absolute Auto 3000 /uL (0-900); Monocytes Percent Auto 33.2 % (3-14); Neutrophils Absolute Auto 4500 /uL (1500-7000); Neutrophils Percent Auto 50.2 % (50-75); Platelet Count 109 X10^3/uL (150-400); Red Blood Cell Count 2.43 X10^6/uL (4.5-5.9); Red Cell Distribution Width 17.6 % (11.6-14.8)
[2022-08-19 08:03] LABS: BUN Creatinine Ratio 13.6 (6-22); Blood Urea Nitrogen 14 mg/dL (9-20); Calcium 7.5 mg/dL (8.4-10.2); Carbon Dioxide 26 mmol/L (22-32); Chloride 99 mmol/L (98-107); Estimated Glomerular Filt Rate > 60 mL/min (>60); Glucose 131 mg/dL (80-110); HEMOLYSIS < 15 (0-50); Potassium 3.7 mmol/L (3.4-5.1); Sodium 133 mmol/L (137-145)
[2022-08-19 08:11] LABS: NT-proBNP (BNP-Adult 18+) 1210 pg/mL (<450)
[2022-08-19] MEDS: SODIUM BICARBONATE 650 MG TABLET 325 MG PO ×2 (08:18→21:09)
[2022-08-19] MEDS: TAMSULOSIN 0.4 MG CAPSULE PO (08:18)
[2022-08-19] MEDS: FUROSEMIDE 20 MG TABLET PO ×2 (08:18→16:31)
[2022-08-19] MEDS: CALCIUM CARBONATE 600 MG TABLET 1200 MG PO (08:19)
[2022-08-19 08:20] LABS: Macrocytosis 3+
[2022-08-19 08:21] LABS: Anisocytosis 2+
[2022-08-19] MEDS: SODIUM CHLORIDE 0.9% FLUSH 10 ML IV ×2 (08:25→21:09)
--- NOTE | 2022-08-19 08:34 | PM.PN.1 ---
Subjective Subjective Interval history: Feeling better today. Eager to mobilize. Agreeable to physical therapy. Went over the acute on subacute subdural diagnosis with him in his . They had questions that were answered. Exam Vital Signs (past 8 hours): - 08/19/22 02:00 08/19/22 01:05 08/19/22 06:00 Temperature 97.6 F Pulse Rate 67 Respiratory Rate 17 Blood Pressure 114/61 Pulse Oximetry 92 92 93 Oxygen Delivery Method Room Air Room Air Oxygen Flow Rate 0 08/19/22 06:23 08/19/22 08:00 Temperature 97.8 F 97.9 F Pulse Rate 92 H 87 Respiratory Rate 18 17 Blood Pressure 106/53 L 108/61 Pulse Oximetry 93 95 Oxygen Delivery Method Oxygen Flow Rate 0 0 Oxygen Delivery Method Room Air Oxygen Flow Rate 0 Narrative Exam Narrative: Gen: Alert, oriented, well-developed, interacting normally HEENT: normocephalic, atraumatic, conjunctiva clear, sclera non-icteric, oral mucosa pink and moist Neck: supple, full ROM, no JVD, trachea is midline Resp: Lungs CTA, non-labored breathing, no wheezes or crackles. CV:? Rate and rhythm normal, heart sounds S1-S2, no murmur or rubs Abd: soft, non-tender, bowel sounds normal Skin: no lesions or rashes, dry and intact Neuro: Alert and oriented X 4 w/no focal deficits. Speech clear and coherent Extremities: moves all 4 extremities Psyche: normal mood and affect. Objective Labs Result Diagrams: 08/19/22 06:43 08/19/22 06:43 Labs: Laboratory Results - last 24 hr 08/19/22 08/19/22 08/19/22 06:43 06:43 06:43 WBC 9.0 RBC 2.43 L Hgb 9.8 L Hct 28.3 L MCV 116.3 H MCH 40.4 H MCHC 34.8 RDW 17.6 H Plt Count 109 L Neut % (Auto) 50.2 Lymph % (Auto) 15.6 L [place] % (Auto) 33.2 H Eos % (Auto) 0.6 L Baso % (Auto) 0.4 Neut # (Auto) 4500 Lymph # (Auto) 1400 [place] # (Auto) 3000 H Eos # (Auto) 0 Baso # (Auto) 0 RBC Morphology Anisocytosis 2+ H Microcytosis Assistant General Manager Macrocytosis 3+ H D Sodium 134 L 133 L Potassium 3.5 3.7 Chloride 99 99 Carbon Dioxide 25 26 BUN 14 14 Creatinine 1.03 1.03 Estimated GFR > 60 > 60 BUN/Creatinine Ratio 13.6 13.6 Glucose 132 H 131 H Calcium 7.5 L 7.5 L Magnesium 1.9 Total Bilirubin 0.7 AST 21 ALT 24 Alkaline Phosphatase 30 L NT-Pro-B Natriuret Pep 1210 H Total Protein 7.1 Albumin 3.1 L Globulin 4.0 Albumin/Globulin Ratio 0.8 L PFSH Medical History Adrenal nodule (11/2020) Adrenal nodule Allergic sinusitis BPH (benign prostatic hyperplasia) Cataracts, bilateral (~1995) Chicken pox (~1943) Cirrhosis Elevated liver enzymes Erythropoietic hemochromatosis Essential thrombocytosis Hepatomegaly HNP (herniated nucleus pulposus), lumbar Lumbar spinal stenosis Melanoma (~1983) Postnasal drip Postural hypotension Serous otitis media 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) Thrombocytopenia 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 Urinary tract infection, acute, present on admission ?IV ceftriaxone 1 g daily.? Urine culture negative.? Blood culture so far negative. Stop ceftriaxone. 2. Subdural hematoma suspected to be acute on subacute however patient did not report any previous history of a subdural. Acute subdural hematoma is secondary to a fall prior to presentation. Fall precautions, seizure precautions, follow clinically neurologically. 3. 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 Guillain-[place] secondary to [employer] immunization for COVID.? IVIG is on hold due to hospitalization currently.? Initially was treated with IVIG and improved.? However most recently had an increase in weakness and therefore this was re-initiated. Monitor for worsening weakness or neurological symptoms. No worsening of symptoms currently. Progress with physical therapy. 4. Acute confusion.? Components of possible concussion from fall causing subdural hematoma and or urinary tract infection causing acute delirium.? Patient essentially at baseline currently. 5. Prescription of sodium bicarbonate b.i.d. patient unclear of the reason for prescribing.? May be acid indigestion.? Will continue. 6. Prescription for tamsulosin.? Likely underlying benign prostatic hypertrophy.? Continue prescription.? 7. 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 Receives Reblozyl 75 mg Subcut. every 3 weeks by Oncology.? Not ordered for this hospitalization. 8. Anemia with multifactorial causes.? Concurrently stable.? Follow. 9. Elevated atypical lymphocytes.? Follow. Currently high monocyte percentage. Follow. 10. Elevated PT and INR likely due to underlying liver disease.? Will not prescribe enoxaparin.? 11. Mild hyponatremia.? Stable. Follow 12. Hypokalemia.? Resolved to normal. 13. Elevated BNP.? Continue patient's furosemide.? 14. Consistently elevated fasting blood sugar. Measure hemoglobin A1c. Was normal in April of 2022. 15. Decreased mobility. This is in setting of feeling weak prior to coming to the hospital and being in bed most of the time well here. Consult physical therapy for assessment and treatment and mobilize the patient baseline. VTE Prophylaxis: [place] risk score 0 ? Bilateral SCDs Patient is admitted to the inpatient service due to the severity of disease, risks of further disease progression and this stay is expected to exceed 2 midnights. FEN: IV fluids:? Saline lock, diet:? Heart healthy Consultants none Dispo:? Likely discharge to home, social work did see him and had been discussing possibilities for rehab due to his fall risk Time Spent With Patient Critical Care time: I spent a total of [] minutes of critical care time on this patient's care today; this time is exclusive of procedural time. Quality VTE Deep Vein Thrombosis/Pulmonary Embolism Present on Admission: No
[2022-08-19 08:38] LABS: Hemoglobin A1C% w Est Avg Glu 5.4 % (4.0-6.0)
[2022-08-19 08:48] LABS: Neutrophils Absolute Manual 4050 /uL (3000-5900); Total Cells Counted 100
--- NOTE | 2022-08-19 10:50 | PT.IIE ---
Current Diagnoses Traumatic subdural hemorrhage with loss of consciousness of unspecified duration, initial encounter (08/16/22) Surgical History (Last Reviewed 08/17/22 @ 04:15 by JOAN Aguilar) History of hip replacement, total Hx of cystoscopy (05/10/21) Medical History (Last Reviewed 08/17/22 @ 04:15 by JOAN Aguilar) Adrenal nodule (11/2020) Adrenal nodule Allergic sinusitis BPH (benign prostatic hyperplasia) Cataracts, bilateral (~1995) Chicken pox (~194) Cirrhosis Elevated liver enzymes Erythropoietic hemochromatosis Essential thrombocytosis Hepatomegaly HNP (herniated nucleus pulposus), lumbar Lumbar spinal stenosis Melanoma (~1983) Postnasal drip Postural hypotension Serous otitis media 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) Thrombocytopenia 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) Vision disorder Physical Therapy Inpatient Evaluation/Re-Eval M1 PT/OT-IP Prior Functional Status Start: 08/19/22 13:04 Freq: NEEDED Status: Active Protocol: Document 08/19/22 10:50 AB (Rec: 08/19/22 13:16 AB [email or web address]) Medical Review Prior Functional Status Medical History Reviewed Yes Communication able to make needs known but requires increase time to answer questions Mobility and Gait pt stated that he is modified independent with all mobilities and ambulation using SPC indoors/short distances and uses an electric w/c for outdoor mobility Social History Household Members spouse Living Arrangements Apartment/Condo Number of Floors (Floors) One Floor Number of Stairs To Enter/Railing? no steps to enter Home Environment Standard Height Toilet,Tub/ Shower Home Equipment Straight Cane,Power Wheelchair /Scooter,Shower Seat without Backrest,Hand Held Shower,Grab Bars Near Toilet M2 PT-IP Current Condition Start: 08/19/22 13:04 Freq: NEEDED Status: Active Protocol: Document 08/19/22 10:50 AB (Rec: 08/19/22 13:16 AB [email or web address]) Physical Therapy Current Condition Current Condition Evaluation Date 08/19/22 Treatment Diagnosis subdural hematoma; weakness; difficulty in walking Onset Date 08/16/22 M3 PT-IP Subjective Start: 08/19/22 13:04 Freq: NEEDED Status: Active Protocol: Document 08/19/22 10:50 AB (Rec: 08/19/22 13:16 AB [email or web address]) Subjective Physical Therapy Visit Type Type Initial Evaluation Visit Start Time 10:50 Visit Stop Time 11:17 Total Visit Minutes 27 Number of ROVING HAULER Visits 0 Physical Therapy Visit Comments Patient Comments agreeable to do PT M4 PT-IP Mobility and Gait Start: 08/19/22 13:04 Freq: NEEDED Status: Active Protocol: Document 08/19/22 10:50 AB (Rec: 08/19/22 13:16 AB [email or web address]) PT-Bed Mobility Assessment Supine to Sit Supine to Sit Maximum Assistance,Head of Bed Elevated,Bedrails Scooting Scooting to Edge of Bed Maximum Assistance PT-Transfer Assessment Sit to and From Stand Sit to and from Stand Maximum Assistance,2 Person Assistance,Use of Upper Extremities Equipment Transfer Assistive Device Front Wheeled Walker Orthotic/Prosthetic Devices or Brace: No Transfers Transfer Destination Chair Transfer Technique Stand Pivot Transfer Ability Level of Assist Maximum Assistance,Total Assistance,2 Person Assistance ,Use of Upper Extremities Comments Mobility Comments completed supine to sit max A and max cues with HOB elevated and pt used bed rail. required min A for sitting balance on EOB. completed sit to stand x 2 attempts max A x 2 and max cues and required max A x 2 for standing balance . pt unable to tolerate standing and has to sit back down. increase trunk extension and posterior lean with LE shaking and pt expressing fear of falling. attempted sit to stand again max A x 2 and max cues and only tolerated ~ 5 sec of standing and needing to sit back on EOB. assisted pt to the chair. completed squat pivot transfer with PT assisting in front ot pt and nurse from behind but pt pushing away from the chair and sat back on bed. educated pt on safety and to decrease guarding. completed squat pivot again max A x 2 to total A x 2 and max cues. positioned pt on the chair. call light and table placed within reach. Gait Assessment Comments Gait Comments unable at this time PT-Balance Assessment Sitting Balance and Reactions Static Sitting Balance Ability Fair Dynamic Sitting Balance Ability Fair Standing Balance and Reactions Static Standing Balance Ability Poor Dynamic Standing Balance Ability Poor Device Used FWW M5 PT-IP Objective Assessments Start: 08/19/22 13:04 Freq: NEEDED Status: Active Protocol: Document 08/19/22 10:50 AB (Rec: 08/19/22 13:16 AB [email or web address]) Orientation Orientation/Cognition Level of Alertness Alert Orientation Name,Place,Situation Language Function Ability Hard of Hearing Safety Awareness Decreased Safety Awareness Gross Range of Motion Lower Extremity ROM Assessment Within Functional Limits Strength Lower Extremity Strength Assessment Bilaterally Impaired Hip 4-/5 Knee 3+/5 Muscle Tone Muscle Tone WNL Yes M6 PT-IP Treatment Start: 08/19/22 13:04 Freq: NEEDED Status: Active Protocol: Document 08/19/22 10:50 AB (Rec: 08/19/22 13:16 AB [id number]) Physical Therapy Treatment Education Education Provided Safety M7 PT-IP Assessment and Plan Start: 08/19/22 13:04 Freq: NEEDED Status: Active Protocol: Document 08/19/22 10:50 AB (Rec: 08/19/22 13:16 AB [email or web address]) PT Summary Assessment and Plan Potential Rehabilitation Potential Fair Status of Condition at Evaluation Evolving Summary Impairments Pain,ROM,Strength,Balance, Coordination,Sensation,Tone, Cognition,Bed Mobility, Transfers,Gait,Activity Tolerance Assessment Summary pt requiring max A x 2 to total A x 2 with mobility and unable to ambulate at this time. pt will require SNF rehab to improve strength and mobility Goals Bed Mobility Goal Standby Assistance Transfer Goal Standby Assistance,Front Wheeled Walker Gait Goal Standby Assistance,Front Wheel Walker Gait Distance 25 Days to Meet Goals 10 Frequency of Treatment Frequency Of Treatment Once a Day Treatment Plan Physical Therapy Treatment Plan Bed Mobility Training,Transfer Training,Gait Training, Therapeutic Exercise,Balance Retraining,Discharge Planning, Hot or Cold Pack,Neuromuscular Re-ed,Coordination Retraining ,Manual Therapy Precautions Other Precautions falls Recommendations To Nursing Amount of Assist Needed Mechanical Lift Discharge Recommendations PT Discharge Recommendations SNF Rehab Transportation Needs at Discharge Wheelchair/Cabulance,Stretcher /Ambulance
--- NOTE | 2022-08-19 14:26 | CM.DPC ---
DCP Cont: DCP spoke with PT and they have recommended SNF for pt. Pt is a 2 max assist. DCP spoke with pt and Maninder @ the bedside. DCP showed Maninder Medicare Choice list and showed him medicare website on Ipad. Maninder wants [facility] to send referral to [facility] as it is the closest one to their residence. DCP verbalized that if they are unable to accommodate, we would need two other choices. Maninder verbalized understanding. DCP contacted Debora @ [facility] and provided her with referral details. Debora to look into pt case and give DCP a call back. DCP to continue to follow. Kandy Salgado RN/SOFIP
--- NOTE | 2022-08-19 17:28 | DIET.CONS ---
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 Presented to ED after episode of syncope. PMH of MDS, treatment from oncology ongoing. Currently treated for UTI, subdural hematoma, and electrolyte disturbances. Wt hx indicates 6.3% loss over one month (94.4kg 07/20/22) and 9% loss over three months (97.2kg 05/10/22), both severe. Nutrition focused physical exam: mild alevism depression, boxed shoulders, depressed interosseous. was present and helped with assessment. He reports very low Po over the last week. States portions are getting smaller and smaller over the last 3 months. Poor PO since admission. States he will eat an ensure at home with berries. Ht: 187.96 cm Wt: 88.451 kg BMI: 25.0 UBW: 111.4kg Last BM: 08/16/22 (08/17/22 01:00) MNA: 10 Shan Score: 15 Diet: 08/17/22 Breakfast Heart Healthy Diet Diet Modifications: Sodium Level: 2 gm Sodium 08/19/22 Dinner Heart Healthy Diet Diet Modifications: VanillEnsure Enliv+berries blended 3 times per day Sodium Level: 2 gm Sodium Nutrition Percent Meal Consumed 0% 08/18/22 12:53 Percent Meal Consumed 10% 08/18/22 08:46 Percent Meal Consumed 75% 08/17/22 20:55 Percent Meal Consumed 50% 08/17/22 18:00 Labs: RBC 2.43 X10^6/uL (4.5-5.9) L 08/19/22 06:43 Hgb 9.8 g/dL (13.5-17.5) L 08/19/22 06:43 Hct 28.3 % (41-53) L 08/19/22 06:43 Creatinine 1.03 mg/dL (0.66-1.25) 08/19/22 06:43 Creatinine 1.03 mg/dL (0.66-1.25) 08/19/22 06:43 Hemoglobin A1c 5.4 % (4.0-6.0) 08/19/22 06:43 Lactate 1.5 mmol/L (0.7-2.1) 08/16/22 15:56 NT-Pro-B Natriuret Pep 1210 pg/mL (<450) H 08/19/22 06:43 Nutrition Diagnosis: Acute severe protein calorie malnutrition r/t loss of appetite, poor po aeb >5% wt loss in one month and >7.5% over three months, physical signs of fat and muscle loss, and low po intake Interventions: high kcal ONS with berries TID EER: 0503-7522 kcal (28-30kcal/kg per BMI) ; 132g PRO (1.5g/kg per malnutrition) Monitoring/Evaluations: PO, ONS tolerance, weights Electronically Signed by: Pretty Morrison 08/19/22 17:28 Clinical Dietitian [address] [address]
[2022-08-20] VITALS (12 sets, daily range): BP systolic 97–117; BP diastolic 47–67; PULSE 80–98; RESP 14–19; TEMP 35.8–36.7; O2SAT 93–96
--- NOTE | 2022-08-20 08:10 | PM.PN.1 ---
Subjective Subjective Date Patient Seen: 08/20/22 Time Patient Seen: 11:00 Interval history: Patient feeling very tired today. Was working with PT when I saw him and able to stand with walker but tired out quickly and had to sit back down. Orthostatics negative. Says he has dry mouth. Exam Vital Signs (past 8 hours): - 08/20/22 02:00 08/20/22 05:15 08/20/22 06:00 Temperature 97.8 F Pulse Rate 98 H Respiratory Rate 19 Blood Pressure 104/66 Pulse Oximetry 94 96 96 Oxygen Delivery Method Room Air Room Air Oxygen Flow Rate 0 08/20/22 07:00 Temperature 96.7 F L Pulse Rate 87 Respiratory Rate 16 Blood Pressure 99/47 L Pulse Oximetry Oxygen Delivery Method Oxygen Flow Rate Oxygen Delivery Method Room Air Oxygen Flow Rate 0 Narrative Exam Narrative: Gen: Alert, oriented, well-developed, AOx2. appears diaphoretic and exhausted HEENT: normocephalic, atraumatic, conjunctiva clear, sclera non-icteric, oral mucosa pink and moist Neck: supple, full ROM, no JVD, trachea is midline Resp: Lungs CTA, non-labored breathing, no wheezes or crackles. CV:? Rate and rhythm normal, heart sounds S1-S2, no murmur or rubs Abd: soft, non-tender, bowel sounds normal Skin: no lesions or rashes, dry and intact Neuro: Alert and oriented X 4 w/no focal deficits. Speech clear and coherent Extremities: moves all 4 extremities Psyche: normal mood and affect. Objective Labs Result Diagrams: 08/20/22 07:46 08/20/22 08:47 Labs: Laboratory Results - last 24 hr 08/19/22 08/19/22 08/19/22 06:43 06:43 06:43 Total Counted 100 Seg Neutrophils % 37.0 L Band Neutrophils % 8.0 H Lymphocytes % (Manual) 15.0 L Monocytes % (Manual) 38.0 H Blast Cells % 2.0 H Neutrophils # (Manual) 4050 RBC Morphology Anisocytosis 2+ H Microcytosis Snowboarder Macrocytosis 3+ H D Hemoglobin A1c 5.4 NT-Pro-B Natriuret Pep 1210 H PFSH Medical History Adrenal nodule (11/2020) Adrenal nodule Allergic sinusitis BPH (benign prostatic hyperplasia) Cataracts, bilateral (~1995) Chicken pox (~1943) Cirrhosis Elevated liver enzymes Erythropoietic hemochromatosis Essential thrombocytosis Hepatomegaly HNP (herniated nucleus pulposus), lumbar Lumbar spinal stenosis Melanoma (~1983) Postnasal drip Postural hypotension Serous otitis media 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) Thrombocytopenia 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 Acute weakness, acute, present on admission -likely secondary to patient's Guillian barre -PT eval noting he will need SNF 2. Subdural hematoma suspected to be acute on subacute however patient did not report any previous history of a subdural. Acute subdural hematoma is secondary to a fall prior to presentation. Fall precautions, seizure precautions, follow clinically neurologically. -per neuro stroke nothing to do but monitor as not expanding on serial CT's 3. 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 Guillain-[place]sburg secondary to [employer] immunization for COVID.? IVIG is on hold due to hospitalization currently.? Initially was treated with IVIG and improved.? However most recently had an increase in weakness and therefore this was re-initiated. -PT eval 4. Acute confusion, improving.? Components of possible concussion from fall causing subdural hematoma.? Patient possibly at baseline. AOx2 as he knew year and person but thought he was in the state of [place]. 5. Orthostatic hypotension. Patient has low BP of 90/60's and appears clinically dry. Stop po lasix and give 1L NS bolus. Echo showed EF 60-65% with mod aortic stenosis. 6. Prescription for tamsulosin.? Likely underlying benign prostatic hypertrophy.? Continue prescription.? 7. 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 Receives Reblozyl 75 mg Subcut. every 3 weeks by Oncology.? Not ordered for this hospitalization. 8. Anemia with multifactorial causes.? Concurrently stable.? Follow. 9. Elevated atypical lymphocytes.? Follow. Currently high monocyte percentage. Follow. 10. Elevated PT and INR likely due to underlying liver disease.? Will not prescribe enoxaparin.? 11. Mild hyponatremia.? Stable. Follow 12. Hypokalemia.? Resolved to normal. 13. Elevated BNP.? Continue patient's furosemide.? 14. Consistently elevated fasting blood sugar. Hemoglobin A1c 5.4%. Was normal in April of 2022. 15. Decreased mobility. This is in setting of feeling weak prior to coming to the hospital and being in bed most of the time well here. Continue physical therapy for assessment and treatment and mobilize the patient baseline. 16. Acute severe protein calorie malnutrition?r/t loss of appetite, poor po aeb >5% wt loss in one month and >7.5% over three months, physical signs of fat and muscle loss, and low po intake 17. Mod aortic stenosis. Seen on echo 08/20. Will bolus as above as he is likely preload dependent. VTE Prophylaxis: Bilateral SCDs Dispo:? SNF likely on 08/21 Time Spent With Patient Critical Care time: I spent a total of [] minutes of critical care time on this patient's care today; this time is exclusive of procedural time. Quality VTE Deep Vein Thrombosis/Pulmonary Embolism Present on Admission: No
--- NOTE | 2022-08-20 08:15 | DI.ECHO.S_ITS ---
[facility]---------+ [facility] +---------+ : : [address] : : : : [id number] : : : : Phone: [phone] Echocardiogram Report + + :Name: JESE MEADE Study Date: 08/20/2022 Height: 74 in : :[facility] ReadingLocation: Weight: 195 lb : : Gender: Male BSA: 2.1 m2 : :: 1940 Age: 82 yrs BP: 133/53 mmHg: :Reason For Study: ASSESS EF AND AORTIC STENOSIS : :Ordering Physician: RADHA BUCHANAN : :Zuly Castillo Performed By: Marilyn Sanabria : :Referring: RADHA BUCHANAN D.O. : + + Interpretation Summary The ejection fraction is estimated to be 65-70%. There is moderate aortic stenosis. The ascending aorta is mildly enlarged. Compared to the prior study, the patient's heart rate has increased along with the ejection fraction and aortic valve gradient. Procedure: A two-dimensional transthoracic echocardiogram with color flow and Doppler was performed in limited views only to assess ejection fraction and aortic stenosis. The study quality was technically adequate. Comparison is made with the echocardiogram of 12/06/2021. The patient was in atrial fibrillation with heart rates between 88-100 bpm during the exam. Left Ventricle: The left ventricle is normal in size. Proximal septal thickening is noted. The ejection fraction is estimated to be 65-70%. Diastolic function could not be accurately assessed due to atrial fibrillation. Right Ventricle: The right ventricle is not well visualized. Mitral Valve: The mitral valve is normal. Aortic Valve: The aortic valve is moderately calcified. The aortic valve is trileaflet. The peak aortic velocity is 2.98 m/sec. The aortic valve mean gradient is 21 mmHg. Dimensionless index is around 0.42. There is moderate aortic stenosis. No aortic regurgitation is present. Tricuspid Valve: The tricuspid valve is not well visualized. Great Vessels: The ascending aorta is mildly enlarged. The IVC is of normal diameter and collapses greater than 50% with a sniff. This suggests a low right atrial pressure of 3 mm Hg. Pericardium/ Pleura There is no pericardial effusion. There is no pleural effusion. MMode/2D Measurements & Calculations LVIDd: 5.1 cm LVOT diam: 2.7 cm LVIDs: 3.8 cm Ao root diam: 4.1 cm FS: 26.3 % asc Aorta Diam: 4.0 cm IVSd: 0.93 cm LVPWd: 1.0 cm LV bush. diameter/BSA (cm/m^2): 2.4 LV sys. diameter/BSA (cm/m^2): 1.8 IVC diam: 1.0 cm Doppler Measurements & Calculations Ao V2 max: 298.4 cm/sec LVOT Max Senthil: 120.5 cm/sec Ao V2 mean: 206.5 cm/sec LV V1 max P.8 mmHg Ao max P.6 mmHg LV V1 VTI: 23.1 cm Ao mean P.1 mmHg JOE(I,D): 2.4 cm2 Ao V2 VTI: 53.1 cm JOE(V,D): 2.3 cm2 sev ratio: 0.43 JOE indexed to BSA (cm^2/m^2): 1.1 SV(LVOT): 128.5 ml Reading Physician:04:34 PM
[2022-08-20 08:25] LABS: Hematocrit 27.9 % (41-53); Hemoglobin 9.7 g/dL (13.5-17.5); Mean Corpuscular HGB Conc 34.9 % (30-36); Mean Corpuscular Hemoglobin 40.7 PG (26-34); Mean Corpuscular Volume 116.8 fL (80-100); Platelet Count 102 X10^3/uL (150-400); Red Blood Cell Count 2.39 X10^6/uL (4.5-5.9); Red Cell Distribution Width 17.8 % (11.6-14.8); White Blood Cell Count 9.8 X10^3/uL (4.5-11.0)
[2022-08-20 08:39] LABS: Add Manual Diff / Slide Review YES
[2022-08-20] MEDS: SODIUM BICARBONATE 650 MG TABLET 325 MG PO ×2 (08:49→21:01)
[2022-08-20] MEDS: TAMSULOSIN 0.4 MG CAPSULE PO (08:49)
[2022-08-20] MEDS: CALCIUM CARBONATE 600 MG TABLET 1200 MG PO (08:50)
[2022-08-20 08:54] LABS: Alanine Aminotransferase 25 IU/L (<50); Albumin Globulin Ratio 0.8 (1.0-2.8); Alkaline Phosphatase 31 U/L (38-126); Aspartate Aminotransferase 21 IU/L (17-59); BUN Creatinine Ratio 15.1 (6-22); Bilirubin Total 0.8 mg/dL (0.2-1.3); Blood Urea Nitrogen 16 mg/dL (9-20); Calcium 7.9 mg/dL (8.4-10.2); Carbon Dioxide 26 mmol/L (22-32); Chloride 98 mmol/L (98-107); Estimated Glomerular Filt Rate > 60 mL/min (>60); Globulin 3.8 g/dL (1.7-4.1); Glucose 140 mg/dL (80-110); HEMOLYSIS < 15 (0-50); Potassium 3.3 mmol/L (3.4-5.1); Sodium 133 mmol/L (137-145); Total Protein 6.8 g/dL (6.3-8.2)
[2022-08-20] MEDS: FUROSEMIDE 20 MG TABLET PO (08:55)
[2022-08-20] MEDS: SODIUM CHLORIDE 0.9% FLUSH 10 ML IV ×2 (08:55→21:02)
[2022-08-20 09:02] LABS: Hypochromasia 1+; Macrocytosis 2+; Neutrophils Absolute Manual 5194 /uL (3000-5900); Total Cells Counted 100
[2022-08-20] MEDS: POTASSIUM CHLORIDE 20 MEQ TAB 40 MEQ PO ×2 (09:32→15:42)
--- NOTE | 2022-08-20 11:23 | CM.DPC ---
DCP Cont: DCP spoke with Debora @ [facility] and she verbalized to DCP that the main barrier for this patient is his IVIG infusions and injection he receives at the [facility]. DCP spoke with Ivone @ [facility] and was the same reason why they could not accept the pt. DCP spoke with Maninder, pt spouse, and asked about medications. Maninder states that the IVIG has been stopped indefinitely per Dr. Nelson's office @ [facility]. Maninder also states that the injection has been held from Dr. Cummings's office and he is not sure he is going to need that injection. Maninder also verbalized to FRANCISCO that he had other facilities he researched and provided those to [facility]. SOFIP instructed that it would be difficult to contact them on the weekends but would try. Maninder also stated that his finances were not an issue if that were another barrier that arose. [facility]ISCO spoke with Dr. Cee about the above information. Dr. Cee in agreement with medication information above. Those offices would need to be responsible for coordinating any medication administration after rehab. SOFIP contacted [facility] and they do not have any openings. [facility] was called and message was left. [facility] was called and message left. [facility] contacted and provided the above information. [facility] will be taking the above information about the medications to review. Debora to call DCP back with update. SOFIP to speak with pt and pt spouse with any updates. Kandy Salgado RN/[facility]
--- NOTE | 2022-08-20 11:39 | PT.IPTN ---
Current Diagnoses Traumatic subdural hemorrhage with loss of consciousness of unspecified duration, initial encounter (08/16/22) Physical Therapy Treatment Note M2 PT-IP Current Condition Start: 08/19/22 13:04 Freq: NEEDED Status: Active Protocol: Document 08/19/22 10:50 AB (Rec: 08/19/22 13:16 AB [email or web address]) Physical Therapy Current Condition Current Condition Evaluation Date 08/19/22 Treatment Diagnosis subdural hematoma; weakness; difficulty in walking Onset Date 08/16/22 M3 PT-IP Subjective Start: 08/19/22 13:04 Freq: NEEDED Status: Active Protocol: Document 08/20/22 11:39 AB (Rec: 08/20/22 12:20 AB [email or web address]) Subjective Physical Therapy Visit Type Type Treatment Note Visit Start Time 11:39 Visit Stop Time 12:05 Total Visit Minutes 26 Number of DINING SERVER Visits 0 Physical Therapy Visit Comments Patient Comments pt is agreeable to do PT; does not remember getting out of the bed yesterday or having PT M4 PT-IP Mobility and Gait Start: 08/19/22 13:04 Freq: NEEDED Status: Active Protocol: Document 08/20/22 11:39 AB (Rec: 08/20/22 12:20 AB [email or web address]) PT-Bed Mobility Assessment Supine to Sit Supine to Sit Maximum Assistance,1 Person Assistance,Head of Bed Elevated,Bedrails PT-Transfer Assessment Sit to and From Stand Sit to and from Stand Maximum Assistance,2 Person Assistance,Use of Upper Extremities Equipment Transfer Assistive Device Gait Belt,Front Wheeled Walker Orthotic/Prosthetic Devices or Brace: No Transfers Transfer Destination Chair Transfer Technique Stand Step Pivot Transfer Ability Level of Assist Maximum Assistance,2 Person Assistance,Use of Upper Extremities Comments Mobility Comments BP in supine: 97/62. pt completed supine to sit max A and max cues with HOB elevated and pt used bed rail. initial c/o lightheadedness. BP: 101/55. lightheadedness dissipated after a few seconds of sitting. completed sit to stand max A x 2 and max cues. cued for steadiness and posture. pt presents with increase trunk flexion and knee flexion in standing. completed step transfer to chair max A x 2 and max cues. BP after transfers: 113/57. pt does not want to do any more activities but agreed to do one more standing. completed sit to stand from the chair max A and max cues. max A for standing balance using FWW. requested to sit back on chair. positioned on chair. call light and table placed within reach. M5 PT-IP Objective Assessments Start: 08/19/22 13:04 Freq: NEEDED Status: Active Protocol: Document 08/19/22 10:50 AB (Rec: 08/19/22 13:16 AB [email or web address]) Orientation Orientation/Cognition Level of Alertness Alert Orientation Name,Place,Situation Language Function Ability Hard of Hearing Safety Awareness Decreased Safety Awareness Gross Range of Motion Lower Extremity ROM Assessment Within Functional Limits Strength Lower Extremity Strength Assessment Bilaterally Impaired Hip 4-/5 Knee 3+/5 Muscle Tone Muscle Tone WNL Yes M6 PT-IP Treatment Start: 08/19/22 13:04 Freq: NEEDED Status: Active Protocol: Document 08/20/22 11:39 AB (Rec: 08/20/22 12:20 AB [email or web address]) Physical Therapy Treatment Education Education Provided Safety M7 PT-IP Assessment and Plan Start: 08/19/22 13:04 Freq: NEEDED Status: Active Protocol: Document 08/20/22 11:39 AB (Rec: 08/20/22 12:20 AB [email or web address]) PT Summary Assessment and Plan Potential Rehabilitation Potential Fair Summary Impairments Pain,ROM,Strength,Balance, Coordination,Sensation,Tone, Cognition,Bed Mobility, Transfers,Gait,Activity Tolerance Progress Towards Goals Slow Progress due to Medical Issues,Slow Progress due to Activity Tolerance,Slow Progress - Other Assessment Summary pt improving slowly and was able to complete a step transfer using FWW today with max A x 2 but continues to present with decrease activity tolerance. pt will require SNF rehab to improve strength and mobility. Goals Bed Mobility Goal Minimal Assistance Transfer Goal Minimal Assistance,Front Wheeled Walker Gait Goal Minimal Assistance,Front Wheel Walker Gait Distance 25 Other Goals improve bed mobility, transfers and ambulation using FWW 100 ft SBA Days to Meet Goals 10 Frequency of Treatment Frequency Of Treatment Once a Day Treatment Plan Physical Therapy Treatment Plan Bed Mobility Training,Transfer Training,Gait Training, Therapeutic Exercise,Balance Retraining,Discharge Planning, Hot or Cold Pack,Neuromuscular Re-ed,Coordination Retraining ,Manual Therapy Precautions Other Precautions falls, BP Recommendations To Nursing Amount of Assist Needed 2 Person Assist Discharge Recommendations PT Discharge Recommendations SNF Rehab Transportation Needs at Discharge Wheelchair/Cabulance
--- NOTE | 2022-08-20 13:51 | OT.IP.EVAL ---
Current Diagnoses Traumatic subdural hemorrhage with loss of consciousness of unspecified duration, initial encounter (08/16/22) Past Medical History (Last Reviewed 08/17/22 @ 04:15 by JOAN Aguilar) Adrenal nodule (11/2020) Adrenal nodule Allergic sinusitis BPH (benign prostatic hyperplasia) Cataracts, bilateral (~1995) Chicken pox (~194) Cirrhosis Elevated liver enzymes Erythropoietic hemochromatosis Essential thrombocytosis Hepatomegaly HNP (herniated nucleus pulposus), lumbar Lumbar spinal stenosis Melanoma (~1983) Postnasal drip Postural hypotension Serous otitis media 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) Thrombocytopenia 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 Pt appears confused during session. Mobility and Gait pt stated that he is modified independent with all mobilities and ambulation using SPC indoors/short distances and uses an electric w/c for outdoor mobility Activities of Daily Living and IADL's Pt states that he was IND in all ADLs prior to recent set backs and his spouse take care of most of the cleaning and cooking. Prior Functional Level (Other details) Information obtained from pt's spouse. Information listed on P.T. eval was obtained from the pt who was slightly confused. Use home set up information from this note. Social History Household Members spouse Living Arrangements House Number of Floors (Floors) One Floor Number of Stairs To Enter/Railing? no steps to enter but has one step down into the living room . 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 M1 PT/OT-IP Prior Functional Status Start: 08/20/22 15:32 Freq: NEEDED Status: Active Protocol: Document 08/20/22 15:33 CGR (Rec: 08/20/22 16:07 CGR [id number]) Medical Review Prior Functional Status Medical History Reviewed Yes Communication able to make needs known but requires increase time to answer questions. Pt appears confused during session. Mobility and Gait pt stated that he is modified independent with all mobilities and ambulation using SPC indoors/short distances and uses an electric w/c for outdoor mobility Activities of Daily Living and IADL's Pt states that he was IND in all ADLs prior to recent set backs and his spouse take care of most of the cleaning and cooking. Prior Functional Level (Other details) Information obtained from pt's spouse. Information listed on P.T. eval was obtained from the pt who was slightly confused. Use home set up information from this note. Social History Household Members spouse Living Arrangements House Number of Floors (Floors) One Floor Number of Stairs To Enter/Railing? no steps to enter but has one step down into the living room . 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 M2 OT-IP Current Condition Start: 08/20/22 15:32 Freq: Status: Active Protocol: Document 08/20/22 15:33 CGR (Rec: 08/20/22 16:07 CGR [id number]) Occupational Therapy Current Condition Current Condition Evaluation Date 08/20/22 Treatment Diagnosis generalized weakness, recent guillain-barre syndrome, UTI, subdural hematom Diagnosis Onset Date 08/16/22 M3 OT- IP Subjective and Pain Start: 08/20/22 15:32 Freq: Status: Active Protocol: Document 08/20/22 15:33 CGR (Rec: 08/20/22 16:07 CGR [id number]) OT- Subjective Occupational Therapy Visit Type Type Initial Evaluation Visit Start Time 13:21 Visit Stop Time 13:51 Total Visit Minutes 30 Notes MD present throughout some of session and requests orthostatics be taken. Orthostatics: supine 109/56 94 sitting 95/61 97 standing 118/63 112 OT Pain Assessment Pain When Pain Assessed At Rest Pain Present Pain Present Denied Pain M4 OT- IP ADL's Start: 08/20/22 15:32 Freq: Status: Active Protocol: Document 08/20/22 15:33 CGR (Rec: 08/20/22 16:07 CGR [id number]) OT [id number] Comments OT Self-Feeding Comments not meal time OT ADL-Grooming General Evaluation Grooming Ability Standby Assistance Areas Needing Assistance Face Washing Comments OT Grooming Comments Pt declined other grooming tasks d/t fatigue. OT ADL-Oral Care Comments Oral Care Comments Pt declined d/t feeling fatigued after orthostatics taken OT ADL-Dressing General Eval Lower Body Dressing Ability Total Assistance Areas Needing Assistance Socks OT ADL-Toileting Comments OT Toileting Comments not performed OT ADL-Bathing Comments OT Bathing Comments not performed M5 OT- IP IADL's Start: 08/20/22 15:32 Freq: Status: Active Protocol: Document 08/20/22 15:33 CGR (Rec: 08/20/22 16:07 CGR [id number]) OT-Instrumental Activities of Daily Living Deficits IADL Deficits Identified Deficits Home Safety Awareness Awareness of Need for Assistance at Home Decreased Awareness Ability to Problem Solve Emergency Unable to Problem Solve Situations Medication Management Medication Management Caregiver Administers Money Management Money Management Caregiver Provides Assistance Meal Preparation Meal Preparation Caregiver Provides Assist Musical Instrument Maker Or Repairer Musical Instrument Maker Or Repairer Caregiver Provides Assist Driving Driving Comments Pt's spouse Maninder does all driving. M6 OT- IP Functional Cognition Start: 08/20/22 15:32 Freq: Status: Active Protocol: Document 08/20/22 15:33 CGR (Rec: 08/20/22 16:07 CGR [id number]) Cognitive Factors Limiting Selfcare Function Cognitive Ability Level of Alertness Alert Patient Orientation Name,Year,Place,Situation Attention Span Ability Capable of Focused Attention, Capable of Sustained Attention Ability to Follow Commands Able to Follow One Step Commands with Increased Time, Able to Follow One Step Commands with Repetition Cognitive Comments Cognitive Assessment Comments Pt appear confused off and on throughout session. Pt states that he has a moterized walker. When asked if he meant a moterized w/c pt states no, a moterized walker. OT- Vision and Hearing OT- Hearing Assessment OT- Hearing Assessment WFL OT- Vision Assessment Visual Acuity Glasses All The Time Visual Attentiveness WFL Occular Pursuits WFL M7 OT- IP Mobility and Balance Start: 08/20/22 15:32 Freq: Status: Active Protocol: Document 08/20/22 15:33 CGR (Rec: 08/20/22 16:07 CGR [id number]) OT- Bed Mobility Assessment Supine to Sit Supine to Sit Assist Moderate Assistance,2 Person Assistance Sit to Supine Sit to Supine Assist Moderate Assistance,1 Person Assistance Scooting Scooting to Edge of Bed Maximum Assistance,1 Person Assistance OT-Transfer Assessment Sit to and From Stand Sit to and from Stand Moderate Assistance,2 Person Assistance Devices Transfer Assistive Devices Gait Belt,Front Wheeled Walker Comments Mobility Comments Pt was able to stand at bedside for BP but needed to return to sitting afterwards. OT- Balance Assessment Sitting Balance and Reactions Static Sitting Balance Ability Fair Dynamic Sitting Balance Ability Fair M8 OT- IP Objective Assessments Start: 08/20/22 15:32 Freq: Status: Active Protocol: Document 08/20/22 15:33 CGR (Rec: 08/20/22 16:07 CGR [id number]) OT Gross Range of Motion Upper Extremity Range of Motion Assessment Within Functional Limits OT Strength Comments Strength Comments not tested d/t pts fatigue at end of session OT- Coordination Assessment Comments Coordination Comments not tested d/t pts fatigue at end of session OT Sensation Assessment Edema Edema Absent M9 OT- IP Assessment and Plan Start: 08/20/22 15:32 Freq: Status: Active Protocol: Document 08/20/22 15:33 CGR (Rec: 08/20/22 16:07 CGR [id number]) OT Summary Assessment and Plan Potential Rehabilitation Potential Good Analytic Complexity at Evaluation High Summary OT Impairments Strength,Balance,Functional Cognition,Functional Mobility, Grooming,Dressing,Toileting, Bathing,Toilet Transfers, Shower Transfers,Activity Tolerance Progress Towards Goals Slow Progress due to Medical Issues,Slow Progress due to Activity Tolerance Assessment Summary Pt presents as a high complexity evaluation s/p admit for generalized weakness , UTI, subdural hematoma, and recent Guillain-[place] diagnosis. Pt is fatigued throughout session but visibly more fatigued after sitting EOB and a short stand. Pt will need SNF prior to returning home for increased endurance and strength to allow him to participate in his ADLs. Pt will benefit from ot services while hospitalized. Goals Self-Feeding Goal Independent Grooming Goal Independent Dressing Goal Independent Toileting Goal Independent Bathing Goal Independent Toilet Transfer Goal Independent Shower Transfer Goal Independent Days to Meet Goals 20 Frequency of Treatment Frequency Of Treatment Once a Day Treatment Plan OT Treatment Plan ADL Training,Functional Cognition Training,Functional Mobility,Patient/Family Education,Discharge Planning Other Treatment Recommendations and Next ADLs seated, cog assessment. Treatment Focus Discharge Recommendations OT Discharge Recommendations SNF Rehab Transportation Needs at Discharge Wheelchair/Cabulance
--- NOTE | 2022-08-20 14:53 | PC.NURSE ---
Addendum entered by Ilene Perrin R.N. 08/20/22 17:59: Order to infusin NS 1000cc over one hour. Original Note: Pt visiting w/family, Sat in chair for lunch w/o incidence. HL RAC intact/patent. Tele BBB/WAP per ICU staff. Condition remains essentially unchanged. Call light w/in reach; bed aalrm on for pt safety. Continue w/plan of care.
[2022-08-20] MEDS: SODIUM CHLORIDE 0.9% 1,000 ML 1000 ML IV (17:58)
[2022-08-21] VITALS (10 sets, daily range): BP systolic 99–123; BP diastolic 52–66; PULSE 78–91; RESP 15–20; TEMP 36.1–36.9; O2SAT 93–96
[2022-08-21 07:38] LABS: Add Manual Diff / Slide Review YES; Hematocrit 27.5 % (41-53); Hemoglobin 9.5 g/dL (13.5-17.5); Mean Corpuscular HGB Conc 34.5 % (30-36); Mean Corpuscular Hemoglobin 40.4 PG (26-34); Mean Corpuscular Volume 117.3 fL (80-100); Platelet Count 93 X10^3/uL (150-400); Red Blood Cell Count 2.34 X10^6/uL (4.5-5.9); Red Cell Distribution Width 17.3 % (11.6-14.8); White Blood Cell Count 7.8 X10^3/uL (4.5-11.0)
[2022-08-21 07:51] LABS: BUN Creatinine Ratio 15.4 (6-22); Blood Urea Nitrogen 16 mg/dL (9-20); Calcium 8.1 mg/dL (8.4-10.2); Carbon Dioxide 26 mmol/L (22-32); Chloride 99 mmol/L (98-107); Estimated Glomerular Filt Rate > 60 mL/min (>60); Glucose 133 mg/dL (80-110); HEMOLYSIS < 15 (0-50); Magnesium 1.9 mg/dL (1.6-2.3); Potassium 3.7 mmol/L (3.4-5.1); Sodium 134 mmol/L (137-145)
[2022-08-21 07:56] LABS: Anisocytosis 2+; Macrocytosis 2+; Neutrophils Absolute Manual 3900 /uL (3000-5900); Total Cells Counted 100
[2022-08-21] MEDS: CALCIUM CARBONATE 600 MG TABLET 1200 MG PO (08:56)
[2022-08-21] MEDS: TAMSULOSIN 0.4 MG CAPSULE PO (08:56)
[2022-08-21] MEDS: SODIUM BICARBONATE 650 MG TABLET 325 MG PO ×2 (08:56→21:23)
[2022-08-21] MEDS: SODIUM CHLORIDE 0.9% FLUSH 10 ML IV (08:59)
[2022-08-21] MEDS: SODIUM CHLORIDE 0.9% 1,000 ML 100 ML IV ×2 (10:54→21:24)
--- NOTE | 2022-08-21 13:14 | CM.DPC ---
DCP SNF Planning Cont: Per MD, pt would be stable for d/c today if SNF can accept. Per PT, pt remains max assist and SNF needed. SW called [facility] [place] and confirmed that they can accept but no bed availability until tomorrow 08/21/22. SW called [facility] and they already have a couple admissions today. SW called [facility] and full for today. [facility]. No return calls from [facility]. SW met bedside with pt and spouse (who was resting in the room on the couch) and explained role and discussed acceptance at [facility] which is pt's preference and pt very appreciative. SW updated that [facility] has a resident that has tested positive for COVID in their building but in isolation. Pt acknowledges that he would still be agreeable to SNF at [facility]. SW re-confirmed with pt that he is aware that the IVIG and chemo injection once every 3 weeks would not be an option at SNF until he discharges home. Pt confirms they were postponed already anyways and he is agreeable with postponing until at least after SNF if not longer. SW updated MD and RN and [facility]. Plan: SW to follow for plan of likely pt d/c to [facility] SNF rehab tomorrow Mon if remains medically stable and pt will need updated COVID swab tonight vs the AM pending RN availability. HELLEN Red
--- NOTE | 2022-08-21 13:27 | PT-IP ANOTE ---
Pt declined PT stating he is too fatigued to get up at this time and wants to sleep
--- NOTE | 2022-08-21 17:32 | P.PN_ITS ---
Subjective Subjective Date Patient Seen: 08/21/22 Time Patient Seen: 08:00 Interval history: Patient still feeling tired. No pain and no other complaints. Exam Vital Signs (past 8 hours): - 08/21/22 10:58 08/21/22 11:11 08/21/22 15:00 Temperature 98.0 F 98.2 F Pulse Rate 80 90 Respiratory Rate 17 17 Blood Pressure 108/53 L 112/66 Pulse Oximetry 96 96 94 Oxygen Delivery Method Room Air Oxygen Flow Rate 0 0 0 08/21/22 16:08 Temperature Pulse Rate Respiratory Rate Blood Pressure Pulse Oximetry 94 Oxygen Delivery Method Room Air Oxygen Flow Rate 0 Oxygen Delivery Method Room Air Oxygen Flow Rate 0 Narrative Exam Narrative: Gen: Alert, oriented, well-developed, AOx2. appears diaphoretic and exhausted HEENT: normocephalic, atraumatic, conjunctiva clear, sclera non-icteric, oral mucosa pink and moist Neck: supple, full ROM, no JVD, trachea is midline Resp: Lungs CTA, non-labored breathing, no wheezes or crackles. CV:? Rate and rhythm normal, heart sounds S1-S2, no murmur or rubs Abd: soft, non-tender, bowel sounds normal Skin: no lesions or rashes, dry and intact Neuro: Alert and oriented X 4 w/no focal deficits. Speech clear and coherent Extremities: moves all 4 extremities Psyche: normal mood and affect. Objective Labs Result Diagrams: 08/21/22 07:00 08/21/22 07:00 Labs: Laboratory Results - last 24 hr 08/21/22 08/21/22 07:00 07:00 WBC 7.8 RBC 2.34 L Hgb 9.5 L Hct 27.5 L MCV 117.3 H MCH 40.4 H MCHC 34.5 RDW 17.3 H Plt Count 93 L Neut % (Auto) Not Reportable Lymph % (Auto) Not Reportable [place] % (Auto) Not Reportable Eos % (Auto) Not Reportable Baso % (Auto) Not Reportable Lymph # (Auto) Not Reportable [place] # (Auto) Not Reportable Baso # (Auto) Not Reportable Total Counted 100 Seg Neutrophils % 49.0 Band Neutrophils % 1.0 L Lymphocytes % (Manual) 16.0 L Atypical Lymphs % 12.0 H Monocytes % (Manual) 22.0 H Neutrophils # (Manual) 3900 RBC Morphology Not Reportable Anisocytosis 2+ H Macrocytosis 2+ H Sodium 134 L Potassium 3.7 Chloride 99 Carbon Dioxide 26 BUN 16 Creatinine 1.04 Estimated GFR > 60 BUN/Creatinine Ratio 15.4 Glucose 133 H Calcium 8.1 L Magnesium 1.9 PFSH Medical History Adrenal nodule (11/2020) Adrenal nodule Allergic sinusitis BPH (benign prostatic hyperplasia) Cataracts, bilateral (~1995) Chicken pox (~194) Cirrhosis Elevated liver enzymes Erythropoietic hemochromatosis Essential thrombocytosis Hepatomegaly HNP (herniated nucleus pulposus), lumbar Lumbar spinal stenosis Melanoma (~1983) Postnasal drip Postural hypotension Serous otitis media 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) Thrombocytopenia 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 Acute weakness, acute, present on admission -likely secondary to patient's Guillian barre -PT eval noting he will need SNF 2. Subdural hematoma suspected to be acute on subacute however patient did not report any previous history of a subdural. Acute subdural hematoma is secondary to a fall prior to presentation. Fall precautions, seizure precautions, follow clinically neurologically. -per neuro stroke nothing to do but monitor as not expanding on serial CT's 3. 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 Guillain-[place] secondary to [employer] immunization for COVID.? IVIG is on hold due to hospitalization currently.? Initially was treated with IVIG and improved.? However most recently had an increase in weakness and therefore this was re-initiated. -PT eval 4. Acute confusion, improving.? Components of possible concussion from fall caus ing subdural hematoma.? Patient possibly at baseline. AOx2 as he knew year and person but thought he was in the state of [place]. 5. Orthostatic hypotension. Patient has low BP of 90/60's and appears clinically dry. Stop po lasix and give 1L NS bolus. Echo showed EF 60-65% with mod aortic stenosis. Start IVF and midodrine TID due to persistent hypotension. 6. Prescription for tamsulosin.? Likely underlying benign prostatic hypertrophy.? Continue prescription.? 7. 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 Receives Reblozyl 75 mg Subcut. every 3 weeks by Oncology.? Not ordered for this hospitalization. 8. Anemia with multifactorial causes.? Concurrently stable.? Follow. 9. Elevated atypical lymphocytes.? Follow. Currently high monocyte percentage. Follow. 10. Elevated PT and INR likely due to underlying liver disease.? Will not prescribe enoxaparin.? 11. Mild hyponatremia.? Stable. Follow 12. Hypokalemia.? Resolved to normal. 13. Elevated BNP.? Continue patient's furosemide.? 14. Consistently elevated fasting blood sugar. Hemoglobin A1c 5.4%. Was normal in April of 2022. 15. Decreased mobility. This is in setting of feeling weak prior to coming to the hospital and being in bed most of the time well here. Continue physical therapy for assessment and treatment and mobilize the patient baseline. 16. Acute severe protein calorie malnutrition?r/t loss of appetite, poor po aeb >5% wt loss in one month and >7.5% over three months, physical signs of fat and muscle loss, and low po intake 17. Mod aortic stenosis. Seen on echo 08/20. Will bolus as above as he is likely preload dependent. Continue IVF as appears dry. VTE Prophylaxis: Bilateral SCDs Dispo:? SNF likely on 08/22 Time Spent With Patient Critical Care time: I spent a total of [] minutes of critical care time on this patient's care today; this time is exclusive of procedural time. Quality VTE Deep Vein Thrombosis/Pulmonary Embolism Present on Admission: No
[2022-08-22 02:45] VITALS: BP 119/64; PULSE 71; RESP 18; TEMP 36.2; O2SAT 95
[2022-08-22 06:45] VITALS: BP 119/52; PULSE 88; RESP 18; TEMP 36.9; O2SAT 99
[2022-08-22 07:45] LABS: Add Manual Diff / Slide Review YES; Hematocrit 25.9 % (41-53); Mean Corpuscular HGB Conc 34.8 % (30-36); Mean Corpuscular Hemoglobin 40.6 PG (26-34); Mean Corpuscular Volume 116.7 fL (80-100); Platelet Count 100 X10^3/uL (150-400); Red Blood Cell Count 2.22 X10^6/uL (4.5-5.9); Red Cell Distribution Width 17.5 % (11.6-14.8); White Blood Cell Count 8.4 X10^3/uL (4.5-11.0)
[2022-08-22 07:58] LABS: BUN Creatinine Ratio 16.1 (6-22); Blood Urea Nitrogen 15 mg/dL (9-20); Calcium 8.1 mg/dL (8.4-10.2); Carbon Dioxide 26 mmol/L (22-32); Chloride 100 mmol/L (98-107); Estimated Glomerular Filt Rate > 60 mL/min (>60); Glucose 129 mg/dL (80-110); HEMOLYSIS < 15 (0-50); Potassium 3.7 mmol/L (3.4-5.1); Sodium 134 mmol/L (137-145)
[2022-08-22 08:16] LABS: Anisocytosis 2+; Macrocytosis 1+; Neutrophils Absolute Manual 5124 /uL (3000-5900); Total Cells Counted 100
--- NOTE | 2022-08-22 08:49 | P.DS_ITS ---
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 Partner informed the ED provider that he has progressively gotten weaker and weaker. He received is infusion today they got home and his legs collapsed and he passed out in the living room and the patient recalled hitting his head on the living room carpet.? He did hit his head there was no loss of consciousness.? He is not on any anti-platelet or anticoagulation medication.? He denies any chest pain shortness of breath palpitations dizziness or lightheadedness.? Denies nausea or vomiting, abdominal pain, diarrhea or constipation or upper or lower extremity parastesias. He was supposed received another IVIG infusion tomorrow but they have canceled it. The ED did 2 serial CTs of the head and did not identify any progression of a subacute subdural hematoma. They did consult with Neurosurgery who requested the serial CTs and determined after review of the 2nd CT that there was no progression of the subdural hematoma and would not do any surgical intervention. Chest x-ray was negative for any acute cardiopulmonary process. Patient is afebrile, blood pressure 142/63, heart rate 84, respiratory rate 18, oxygen saturation 97% on room air he weighs 88.4 kg with a BMI of 25. He is mildly anemic with a hemoglobin and hematocrit of 10.0 in 28.9, platelet count is 117 which appears to be is baseline, he has an abnormal peripheral smear, his INR is 1.7, sodium 132, calcium 7.8, alk-phos 34, proBNP is 1180, there is a presence of urine wbc's and rbc's, and the specimen was sent out for culture and is currently pending. COVID-19 PCR is negative as well as MRSA. FH, mother age 86 of an MA. Father age 48 of an MA. He has a 76-year-old brother had shoulder replacement. Discharge Providers Provider Date of admission: 08/16/22 23:27 Discharge Date: 08/22/22 Primary care physician: Catalino Herrera MD Consults: 08/16/22 15:26 Consult to ASSISTANT MEDIA BUYER - Pbx Mechanic Stat Comment: weakness 08/17/22 14:51 Consult to Home Health Routine Comment: UTI, subdural hematoma, Guillain-Limington Reason For Exam: Set up RN/PT/PEOPLESOFT HRMS DEVELOPER for eventual d/c to home 08/19/22 08:33 Consult to Physical Therapy Evaluate & Treat Comment: mobilize to baseline Physician Instructions: Evaluate and Treat 08/19/22 10:07 Consult to Dietitian, Adult Routine Comment: Reason For Exam: assess for malnutrition 08/20/22 11:47 Consult to Occupational Therapy Evaluate & Treat Comment: Physician Instructions: Evaluate and treat Discharge provider: Chay Hamilton DO Summary Hospital Course Discharge Diagnosis: 1. Acute weakness, acute, present on admission -unclear if this represents worsening guillian barre, was given IVIG during this admission by admitting provider. - subdural hematoma possibly contributed as noted below. - acute cystitis may have also been contributing. He was treated with 3 days of ceftriaxone therapy. 2. Subdural hematoma suspected to be acute on subacute however patient did not report any previous history of a subdural.? Acute subdural hematoma is secondary to a fall prior to presentation. Fall precautions, seizure precautions, follow clinically neurologically. -per neuro stroke nothing to do but monitor as not expanding on serial CT's 3. Guillain-Limington syndrome, protracted, received IVIG in the community.? Guillain-Limington secondary to Maxwell & Maxwell immunization for COVID. - IVIG was given by admitting provider as discussed above. -PT eval 4. Acute confusion, improving.? Components of possible concussion from fall causing subdural hematoma.? Patient possibly at baseline. AOx2 as he knew year and person but thought he was in the state of [place]. 5. Orthostatic hypotension. - patient was likely over diuresed. Was given fluid bolus with improvement and then midodrine. Midodrine was not likely effective and patient was asymptomatic from hypotension so medication was discontinued. 6. Prescription for tamsulosin.? Likely underlying benign prostatic hy pertrophy.? Continue prescription.? 7. 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 Receives Reblozyl 75 mg Subcut. every 3 weeks by Oncology.? Not ordered for this hospitalization. 8. Anemia with multifactorial causes.? Concurrently stable.? Follow. 9. Elevated PT and INR likely due to underlying liver disease.? 11. Mild hyponatremia. 12. Hypokalemia.? Resolved to normal after repletion. 13. Consistently elevated fasting blood sugar.? Hemoglobin A1c 5.4%.? Was normal in April of 2022. 14. Decreased mobility.? This is in setting of feeling weak prior to coming to [facility] and being in bed most of the time well here.? Continue physical therapy for assessment and treatment and mobilize the patient baseline. 16. Acute severe protein calorie malnutrition?r/t loss of appetite, poor po aeb >5% wt loss in one month and >7.5% over three months, physical signs of fat and muscle loss, and low po intake 17. Mod aortic stenosis. Seen on echo 08/20. Will bolus as above as he is likely preload dependent. Continued IVF after diuresis as noted above. 18 Probable Acute cystitis - UA with hematuria and 5-10 WBC on admission. Given 3 days of ceftriaxone therapy. Urine cultures were without growht. Time Spent with Patient Time spent: Greater than 30 minutes Exam Vital Signs (past 8 hours): - 08/22/22 02:45 08/22/22 06:45 Temperature 97.1 F L 98.4 F Pulse Rate 71 88 Respiratory Rate 18 18 Blood Pressure 119/64 119/52 L Pulse Oximetry 95 99 Oxygen Flow Rate 0 0 Oxygen Delivery Method Room Air Oxygen Flow Rate 0 Narrative Exam Narrative: Gen: Alert, oriented, well-developed, AOx2. appears diaphoretic and exhausted HEENT: normocephalic, atraumatic, conjunctiva clear, sclera non-icteric, oral mucosa pink and moist Neck: supple, full ROM, no JVD, trachea is midline Resp: Lungs CTA, non-labored breathing, no wheezes or crackles. CV:? Rate and rhythm normal, heart sounds S1-S2, no murmur or rubs Abd: soft, non-tender, bowel sounds normal Skin: no lesions or rashes, dry and intact Neuro: Alert and oriented X 4 w/no focal deficits. Speech clear and coherent Extremities: moves all 4 extremities Psyche: normal mood and affect. Objective Labs Result Diagrams: 08/22/22 07:03 08/22/22 07:03 Labs: Laboratory Results - last 24 hr 08/22/22 08/22/22 07:03 07:03 WBC 8.4 RBC 2.22 L Hgb 9.0 L Hct 25.9 L MCV 116.7 H MCH 40.6 H MCHC 34.8 RDW 17.5 H Plt Count 100 L Neut % (Auto) Not Reportable Lymph % (Auto) Not Reportable [place] % (Auto) Not Reportable Eos % (Auto) Not Reportable Baso % (Auto) Not Reportable Lymph # (Auto) Not Reportable [place] # (Auto) Not Reportable Baso # (Auto) Not Reportable Total Counted 100 Seg Neutrophils % 56.0 Band Neutrophils % 5.0 Lymphocytes % (Manual) 7.0 L Atypical Lymphs % 7.0 H Monocytes % (Manual) 22.0 H Eosinophils % (Manual) 1.0 L Blast Cells % 2.0 H Neutrophils # (Manual) 5124 RBC Morphology Not Reportable Anisocytosis 2+ H Macrocytosis 1+ H Sodium 134 L Potassium 3.7 Chloride 100 Carbon Dioxide 26 BUN 15 Creatinine 0.93 Estimated GFR > 60 BUN/Creatinine Ratio 16.1 Glucose 129 H Calcium 8.1 L PFSH Medical History Adrenal nodule (11/2020) Adrenal nodule Allergic sinusitis BPH (benign prostatic hyperplasia) Cataracts, bilateral (~1995) Chicken pox (~1943) Cirrhosis Elevated liver enzymes Erythropoietic hemochromatosis Essential thrombocytosis Hepatomegaly HNP (herniated nucleus pulposus), lumbar Lumbar spinal stenosis Melanoma (~1983) Postnasal drip Postural hypotension Serous otitis media 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) Thrombocytopenia 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 Discharge Comment: Patient was admitted with weakness, treated for UTI, also found to have a subdural hematoma. Was also given IVIG for possible worsening of guillian barre. Transferring to SNF for continuing therapies. Discharge orders & Medications Prescriptions: New acetaminophen 325 mg Tablet 650 mg PO Q6HR PRN (Reason: Fever/Mild Pain (1-3)) 30 Days Qty: 90 0RF tamsulosin [Flomax] 0.4 mg Capsule 0.4 mg PO DAILY 30 Days Qty: 30 0RF Continued mupirocin 2 % ointment 1 applic topical BID Qty: 22 0RF Label Comments: apply to lesion on face multivitamin Capsule 1 cap PO Q3D garlic Tablet 300 mg PO Q3D Reblozyl 75 mg recon soln 75 mg SUBCUT Q3W Label Comments: given at cancer center Rx Instructions: DIVIDE DOSE INTO 3 SYRINGES OF 0.88ML EACH. ascorbic acid (vitamin C) [Vitamin C] 500 mg tablet 500 mg PO Q3D glucosamine sulfate [Glucosamine] 500 mg Tablet 1,000 mg PO DAILY omega-3 fatty acids Capsule 1 cap PO DAILY magnesium Tablet 1 tab PO DAILY Discontinued furosemide [Lasix] 20 mg tablet 20 mg PO DAILY Qty: 60 1RF Follow up/Referrals: Catalino Herrera MD [Primary Care Provider] - Diet/Activity/Treatments Diet: Diet as Tolerated Liquid consistency: Normal/Thin Food texture: Regular Activity: As tolerated [facility] Rehabilitation [facility] Reason for rehabilitation: Post-operative therapy Rehab type: Physical therapy and Occupational therapy Discharge Data Primary Care Provider: Catalino Herrera Quality VTE Deep Vein Thrombosis/Pulmonary Embolism Present on Admission: No
[2022-08-22 09:19] LABS: COVID19 -Nasal RAPID Negative (Negative)
[2022-08-22 10:00] VITALS: BP 117/50; PULSE 80; RESP 16; TEMP 36.8; O2SAT 100
[2022-08-22] MEDS: SODIUM BICARBONATE 650 MG TABLET 325 MG PO (10:03)
[2022-08-22] MEDS: TAMSULOSIN 0.4 MG CAPSULE PO (10:04)
[2022-08-22] MEDS: CALCIUM CARBONATE 600 MG TABLET 1200 MG PO (10:04)
--- NOTE | 2022-08-22 11:26 | CM.DPC ---
DCP Discharge SNF Per MD, pt remains medically stable to d/c to SNF today and no identified barriers to discharge. SW called [facility] and confirmed they can still accept pt today and transport available at 1400. [facility] updated RN, GROUND CREW LINES PERSON, erp developer and RN kindly obtained updated COVID neg swab and SW provided RN report number. ASUNCION Daniel kindly faxing signed med list, no scripts needed, and PASRR to [facility] to review. Plan: Patient to d/c to [facility] today via facility van today at 1400 prior to safe return home with spouse. Jordyn Vela MSW
[2022-08-22 12:00] VITALS: O2SAT 100
--- NOTE | 2022-08-22 13:51 | PT.IPTN ---
Current Diagnoses Traumatic subdural hemorrhage with loss of consciousness of unspecified duration, initial encounter (08/16/22) Physical Therapy Treatment Note M2 PT-IP Current Condition Start: 08/19/22 13:04 Freq: NEEDED Status: Discharge Protocol: Document 08/22/22 13:16 SP (Rec: 08/22/22 15:42 SP [id number]) Physical Therapy Current Condition Current Condition Evaluation Date 08/19/22 Treatment Diagnosis subdural hematoma; weakness; difficulty in walking Onset Date 08/16/22 M3 PT-IP Subjective Start: 08/19/22 13:04 Freq: NEEDED Status: Discharge Protocol: Document 08/22/22 13:16 SP (Rec: 08/22/22 15:42 SP [id number]) Subjective Physical Therapy Visit Type Type Treatment Note Visit Start Time 13:16 Visit Stop Time 13:51 Total Visit Minutes 35 Notes INTEGRATED LOGISTICS SUPPORT MANAGER provided Max A of 2nd person for out of bed mobility . Did not assess BP this tx. SO in room when arrived, left during tx stating I can be a distraction and think might cry if stay. I will return after tx and know he is leaving soon to SNF. Number of CHILD CARE Visits 1 Physical Therapy Visit Comments Patient Comments Pt is agreeable to working with therapy, impulsive trying to climb out of bed to right, grabbing rails. Patient Goals Agreeable to use of BSC after up in chair I need to go to bathroom quickly. Therapy Pain Assessment Pain Present Pain Present Denied Pain M4 PT-IP Mobility and Gait Start: 08/19/22 13:04 Freq: NEEDED Status: Discharge Protocol: Document 08/22/22 13:16 SP (Rec: 08/22/22 15:42 SP [id number]) PT-Bed Mobility Assessment Supine to Sit Supine to Sit Moderate Assistance,Maximum Assistance,1 Person Assistance ,Head of Bed Elevated,Bedrails Scooting Scooting to Edge of Bed Minimal Assistance PT-Transfer Assessment Sit to and From Stand Sit to and from Stand Moderate Assistance,2 Person Assistance Equipment Transfer Assistive Device Gait Belt,Front Wheeled Walker Orthotic/Prosthetic Devices or Brace: No Transfers Transfer Destination Chair,Bedside Commode Transfer Technique Squat Pivot Transfer Ability Level of Assist Maximum Assistance,2 Person Assistance,Use of Upper Extremities Comments Mobility Comments Pt impulsive trying toget out R side of bed use rails, redirecting max cues for rolling to L SBA and sitting. Elevated supine>sit Max A for trunk righting to sit. Min A sit balance during scoot to EOB. Sit>stand Max A x2 w/ FWW , cued to wt shift and january standing assess pre pivot, pt unable to lift RLE then quickly returned to sitting, ed and cues for reaching back safe sit. Occasional cues for keeping eyes open attend task, Lateral scoot up EOB toward chair, squat pivot completed hand over hand to reach across opp chair arm and other on bed for self support bed>chair Max A x2, scoot back in chair Max A x1 2 trials before complete. After seated rest recover, pt requested use of bathroom. CHILD CARE provided BSC, called INTEGRATED LOGISTICS SUPPORT MANAGER complete squat pivot Max A x2, STS w/ FWW front commode for brief removal Max A x2. seated on BSC time needed but unproductive. Max A x2 STS w/ FWW x3 attempts for pericare/ brief mgt then after rest completed squat pivot back to chair, scoot. Pt had BLEs elevated in chair reclined resting. Encouraged hydration and demonstrated good form water and smoothie self with cues. Pt had call light, chair alarm donned, blankets before left with all needs in reach. Gait Assessment Comments Gait Comments unable at this time Stair Climbing Assessment Comments Stair Climbing Comments No stairs at appt need to assess. PT-Balance Assessment Sitting Balance and Reactions Static Sitting Balance Ability Fair Dynamic Sitting Balance Ability Fair Standing Balance and Reactions Static Standing Balance Ability Poor Dynamic Standing Balance Ability Poor Device Used FWW M5 PT-IP Objective Assessments Start: 08/19/22 13:04 Freq: NEEDED Status: Discharge Protocol: Document 08/19/22 10:50 AB (Rec: 08/19/22 13:16 AB [id number]) Orientation Orientation/Cognition Level of Alertness Alert Orientation Name,Place,Situation Language Function Ability Hard of Hearing Safety Awareness Decreased Safety Awareness Gross Range of Motion Lower Extremity ROM Assessment Within Functional Limits Strength Lower Extremity Strength Assessment Bilaterally Impaired Hip 4-/5 Knee 3+/5 Muscle Tone Muscle Tone WNL Yes M6 PT-IP Treatment Start: 08/19/22 13:04 Freq: NEEDED Status: Discharge Protocol: Document 08/22/22 13:16 SP (Rec: 08/22/22 15:42 SP [id number]) Physical Therapy Treatment Education Education Provided Safety M7 PT-IP Assessment and Plan Start: 08/19/22 13:04 Freq: NEEDED Status: Discharge Protocol: Document 08/22/22 13:16 SP (Rec: 08/22/22 15:42 SP [id number]) PT Summary Assessment and Plan Potential Rehabilitation Potential Fair Status of Condition at Evaluation Evolving Summary Impairments Pain,ROM,Strength,Balance, Coordination,Sensation,Tone, Cognition,Bed Mobility, Transfers,Gait,Activity Tolerance Progress Towards Goals Slow Progress due to Medical Issues,Slow Progress due to Activity Tolerance,Slow Progress - Other Assessment Summary pt decreased standing tolerance/endurance/strength, able STS but required squat pivot transfer support max A x 2 but continues to present with decrease activity tolerance. pt will require SNF rehab to improve strength and mobility. Goals Bed Mobility Goal Minimal Assistance Transfer Goal Minimal Assistance,Front Wheeled Walker Gait Goal Minimal Assistance,Front Wheel Walker Gait Distance 25 Other Goals improve bed mobility, transfers and ambulation using FWW 100 ft SBA Days to Meet Goals 10 Frequency of Treatment Frequency Of Treatment Once a Day Treatment Plan Physical Therapy Treatment Plan Bed Mobility Training,Transfer Training,Gait Training, Therapeutic Exercise,Balance Retraining,Discharge Planning, Hot or Cold Pack,Neuromuscular Re-ed,Coordination Retraining ,Manual Therapy Other Recommendations and Next Treatment bed mob, transfers, gait if Focus tolerant chair follow. Precautions Other Precautions falls, BP Recommendations To Nursing Amount of Assist Needed 2 Person Assist Discharge Recommendations PT Discharge Recommendations SNF Rehab Transportation Needs at Discharge Wheelchair/Cabulance
--- NOTE | 2022-08-22 14:10 | PC.NURSE ---
Pt report called to Priyanka at [facility]. All questions answered. Pt out via w/c by [facility] personnel with all belongings.
== END 2022-08-22 14:11 | DRG 85 ==
LOC: ED 22:45 → AC 08-17 00:14 → ICU 08-17 01:03 → AC 08-17 16:31 → ICU 08-18 09:37
PROVIDERS: Emergency Medicine; Internal Medicine; Neuromusculoskeletal Medicine, Sports Medicine; Student in an Organized Health Care Education/Training Program; Admitting Provider Nurse Practitioner Family; Emergency Provider Emergency Medicine; Family Provider Family Medicine; PCP Family Medicine; Visit Provider Nurse Practitioner Family
DX: S06.5X0A Traumatic subdural hemorrhage without loss of consciousness, initial encounter (principal); E43 Unspecified severe protein-calorie malnutrition; C94.6 Myelodysplastic disease, not elsewhere classified; G61.0 Guillain-Barre syndrome; N39.0 Urinary tract infection, site not specified; G61.81 Chronic inflammatory demyelinating polyneuritis; E87.6 Hypokalemia; I95.1 Orthostatic hypotension; D69.6 Thrombocytopenia, unspecified; N40.0 Benign prostatic hyperplasia without lower urinary tract symptoms; I35.0 Nonrheumatic aortic (valve) stenosis; D64.9 Anemia, unspecified; W18.30XA Fall on same level, unspecified, initial encounter; Z68.25 Body mass index [BMI] 25.0-25.9, adult; Z20.822 Contact with and (suspected) exposure to COVID-19
CPT/HCPCS: 36415; 70450; 71045; 80048; 80053; 81001; 81003; 82550; 83036; 83605; 83735; 83880; 84145; 84484; 85007; 85025; 85610; 85730; 87040; 87086; 87635; 87797; 93005; 93010; 93307; 96365; 96366; 97162; 97167; 97530; 97535; 99284; 99285; C9803; J0696; J1561